=== PATIENT | female | born 1995 | race African-American/Black ===

== ENCOUNTER 2019-11-27 19:34 | Emergency (ER) | payer OTHER, SELFPAY ==
[2019-11-27 19:45] VITALS: BP 132/72; PULSE 92; RESP 17; TEMP 37.1; O2SAT 100
--- NOTE | 2019-11-27 20:41 | ED.FALL ---
HPI - Fall General Chief Complaint: Fall Stated Complaint: FALL, 17WKS PREG Time Seen by Provider: 11/27/19 20:36 Source: patient and RN notes reviewed Mode of arrival: other Limitations: no limitations History of Present Illness HPI Narrative: Pt is a 24 y/o female who presents to the ED with c/o a fall that occurred two days ago (11/25/19). Pt is 17 weeks gestation with no complications with her . Pt states she slipped while wearing house shoes. Pt called her PCP and she was recommended to come to the ED for further evaluation. Pt denies being in any pain. Pt also denies lower abdominal cramping pain, vaginal bleeding, syncope, and hematuria. complaint: fall Onset (ago): day(s) (2) Fall from: standing Place fall occurred: home Loss of consciousness: none Prolonged down time: no Symptoms prior to fall: none Context: tripped/slipped Location of injury: other (none) Associated symptoms (after fall): denies Related Data Home Medications Medication Instructions Recorded Confirmed [id number] fumarate-FA 1 tablet PO DAILY 11/27/19 11/27/19 [] Allergies Allergy/AdvReac Type Severity Reaction Status Date / Time Sulfa (Sulfonamide Allergy Mild Hives Verified 11/27/19 19:51 Antibiotics) Review of Systems Review of Systems: All systems reviewed & are unremarkable except as noted in HPI and below Gastrointestinal: Gastrointestinal: Denies abdominal pain (lower, cramping) Genitourinary: Genitourinary: Denies abnormal vaginal bleeding and Denies hematuria Neurologic: Denies syncope PMFSH Past Medical History Medical History (Updated 11/27/19 @ 21:29 by Pastor Barker MD) GERD (gastroesophageal reflux disease) Pneumonia Surgical History Surgical History (Updated 11/27/19 @ 21:06 by Morena Goyal) History of facial surgery lip surgery Social History Social History Gender identity (if verbalized by the patient): Female Exam Const: General: healthy appearing, no acute distress and well developed Nutritional Appearance: well nourished Orientation/consciousness: patient oriented x3 (alert) and Other orientation findings (Alert) Limitations: no limitations HENMT: Head: normocephalic and atraumatic Ears: external ears normal General nose exam: No nasal discharge present and no epistaxis Face and sinus: face symmetric Mouth: Yes lip normal, Yes tongue normal and Yes moist mucous membranes Throat: other (No exudate, no erythema) Eyes: Conjunctivae: conjunctivae normal Sclera: sclerae normal EOM: EOMs intact bilaterally Neck: Neck: full ROM, no lymphadenopathy and supple Thyroid: thyroid normal Chest: Chest palpation & inspection: no tenderness (rib) Resp: Effort & Inspection: normal respiratory effort Other: nontender GI: Inspection: non-distended GI Palp: No abdominal tenderness and Yes Soft to palpation : General: Yes other (palpable uterus) Other: + doppler FHT's @ 155 Back/Spine/Pelvis: Back: no CVA tenderness and No back tenderness Thoracic/Lumbar Spine: thoracic and lumbar spine normal to inspection Skin: General skin exam: normal color and no rashes or lesions noted Neuro: General: patient oriented x3 (alert), moves all extremities and no focal motor deficits Cranial nerves: Yes facial symmetry Speech: normal speech Motor exam (neuro): Motor abnormalities not present Extrem: General: normal to inspection, full ROM and no pedal edema Psych: Affect: normal affect Course Reevaluation(s) Reevaluation #1: D/w pt, pretty benign mechanism, no concerning sx, benign exam, and FHT's are present Date: 11/27/19 Time: 21:04 Vital Signs Vital signs: Vital Signs Temperature 37.1 C 11/27/19 19:45 Pulse Rate 92 11/27/19 19:45 Respiratory Rate 11/27/19 19:45 Blood Pressure 132/72 11/27/19 19:45 Pulse Oximetry 100 11/27/19 19:45 Temperature 37.1 C 11/27/19 19:45 Pulse Rate 92 11/27/19 19:45 Respiratory Rate
== END 2019-11-27 21:41 | disposition home or self-care (01) ==
PROVIDERS: Emergency Provider Emergency Medicine; PCP Family Medicine
DX: O9A.212 Injury, poisoning and certain other consequences of external causes complicating pregnancy, second trimester (principal); O99.612 Diseases of the digestive system complicating pregnancy, second trimester; K21.9 Gastro-esophageal reflux disease without esophagitis; Z3A.17 17 weeks gestation of pregnancy; W01.0XXA Fall on same level from slipping, tripping and stumbling without subsequent striking against object, initial encounter
CPT/HCPCS: 99282

== ENCOUNTER 2020-01-11 09:29 | Emergency (ER) | payer OTHER, SELFPAY ==
[2020-01-11 09:32] VITALS: BP 122/82; PULSE 95; RESP 18; TEMP 36.5; O2SAT 100
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
[2020-01-11] MEDS: TETANUS,DIPHTHERIA,AC PERTUSSIS ADULT (0.5 ML) BOOSTRIX IM (10:45)
== END 2020-01-11 10:53 | disposition home or self-care (01) ==
PROVIDERS: Emergency Provider Emergency Medicine; PCP Family Medicine
DX: O9A.212 Injury, poisoning and certain other consequences of external causes complicating pregnancy, second trimester (principal); S61.214A Laceration without foreign body of right ring finger without damage to nail, initial encounter; O99.612 Diseases of the digestive system complicating pregnancy, second trimester; K21.9 Gastro-esophageal reflux disease without esophagitis; Z23 Encounter for immunization; X99.1XXA Assault by knife, initial encounter; Z3A.00 Weeks of gestation of pregnancy not specified
CPT/HCPCS: 12001; 90471; 90715; 99282

== ENCOUNTER 2020-01-20 09:50 | Emergency (ER) | payer OTHER, SELFPAY ==
[2020-01-20 10:01] VITALS: BP 105/65; PULSE 86; RESP 16; TEMP 37.1; O2SAT 100
--- NOTE | 2020-01-20 10:08 | ED.WOUNDLAC ---
HPI - Wound/Laceration General Chief Complaint: Wound/Laceration Stated Complaint: wound check History of Present Illness HPI narrative: This is a 25 year old female comes in because she had a laceration and sutures a week ago. Patient said the stitches fell out yesterday and she wanted to make sure that finger was ok. Related Data Home Medications Medication Instructions Recorded Confirmed [id number] fumarate-FA 1 tablet PO DAILY 11/27/19 01/20/20 [] Allergies Allergy/AdvReac Type Severity Reaction Status Date / Time Sulfa (Sulfonamide Allergy Mild Hives Verified 01/20/20 09:56 Antibiotics) Review of Systems Review of Systems: Narrative: CONSTITUTIONAL: Denies fever, chills, or sweats. EYES: Denies visual changes, redness, or discharge. ENT: Denies rhinorrhea, congestion, sore throat, or otalgia. CARDIOVASCULAR:Denies chest pain, palpitations, or edema. RESPIRATORY: Denies cough or dyspnea. GASTROINTESTINAL: Denies abdominal pain, nausea, vomiting, or diarrhea. GENITOURINARY: Denies dysuria or hematuria. SKIN:[Denies rash or itching. Right index finger laceration MUSCULOSKELETAL:Denies back pain, joint pain, or myalgia. NEUROLOGIC: Denies headache, numbness, or weakness. PSYCHIATRIC:Denies anxiety or depression PMFSH Social History Social History Gender identity (if verbalized by the patient): Female Comments At time as signature, I have reviewed and agree with nursing past medical, social, surgical and family history. Please see nursing chart for further information. There is no relevant family history pertinent to the presenting complaint. Exam Narrative: Exam Narrative: GENERAL:Well-appearing, well-nourished, and in no acute distress. HEAD:Normocephalic, atraumatic. EYES: PERRLA and EOMI. ENT: Nares clear, no rhinorrhea or epistaxis. Mucous membranes moist. NECK: Supple. CHEST: Clear to auscultation. No respiratory distress. HEART: Regular rate and rhythm. No murmur heard. Normal peripheral pulses. ABDOMEN: Soft, nontender, nondistended, normal active bowel sounds. EXTREMITIES: Normal range of motion. No edema. SKIN: Warm, dry, no rash. Healing finger wound flap is already healed NEURO: No focal deficits. Alert and oriented x3. Exam essentially negative Course Vital Signs Vital signs: Vital Signs Temperature 98.8 F 01/20/20 10:01 Pulse Rate 86 01/20/20 10:01 Respiratory Rate 16 01/20/20 10:01 Blood Pressure 105/65 01/20/20 10:01 Pulse Oximetry 100 01/20/20 10:01 Temperature 98.8 F 01/20/20 10:01 Pulse Rate 86 01/20/20 10:01 Respiratory Rate 16 01/20/20 10:01 Blood Pressure 105/65 01/20/20 10:01 Pulse Oximetry 100 01/20/20 10:01 MDM - Wound/Laceration Differential Diagnosis Differential diagnosis: Likely laceration, avulsion of skin and other Discharge Plan Discharge Clinical Impression: Physically well but worried, Laceration Patient Disposition: Home, Self-Care Condition: Stable Instructions: Antibiotic Form, Finger Laceration (ED) Prescriptions: No Action 28-800 mg-mcg Tablet 1 tablet PO DAILY RF: 0 Follow-up/Referrals: John Paul,Phillip Alarcon MD [Primary Care Provider] - Stand Alone Forms: Work/School Release IP Time of Disposition: 10:13 Discharge Date/Time: 01/20/20 10:17
== END 2020-01-20 10:17 | disposition home or self-care (01) ==
PROVIDERS: Emergency Provider Nurse Practitioner Family; PCP Family Medicine
DX: S61.210D Laceration without foreign body of right index finger without damage to nail, subsequent encounter (principal); X58.XXXD Exposure to other specified factors, subsequent encounter
CPT/HCPCS: 99211; G0463

== ENCOUNTER 2020-10-13 09:25 | Emergency (ER) | payer OTHER, SELFPAY ==
[2020-10-13] VITALS (13 sets, daily range): BP systolic 106–122; BP diastolic 71–84; PULSE 66; RESP 18; TEMP 36.3; O2SAT 99–100
--- NOTE | ~2020-10-13 | XR_ITS ---
EXAMINATION: XR chest 2V 10/13/2020 09:46 INDICATION: Chest pain PROCEDURE: 2 view chest COMPARISON: 09/04/2020 FINDINGS: The lungs are clear. The cardiomediastinal silhouette is within normal limits. There are no pleural effusions. There is no pneumothorax suspected. IMPRESSION: 1: NO ACUTE CARDIOPULMONARY DISEASE. Reviewed, dictated and finalized at location A. LEVEL CLINICIAN
--- NOTE | 2020-10-13 09:27 | ECG_ITS ---
Measurements Intervals [place] Rate: 68 P: 20 [place]: 145 QRS: 9 QRSD: 84 T: -2 QT: 379 QTc: 404 Interpretive Statements SINUS RHYTHM NONSPECIFIC ST ELEVATION IN HIGH LATERAL LEADS BORDERLINE T WAVE ABNORMALITY- INFERIOR LEADS BASELINE ARTIFACT- AVR, AVF, V1-V2 BORDERLINE ECG Electronically Signed On 10-13-2020 16:36:02 PLASTICS PRODUCTION MACHINE OPERATOR by Fabio Love D.O.
--- NOTE | 2020-10-13 09:38 | PC.NURSE ---
Pt to xray.
[2020-10-13 09:47] LABS: Basophils Percent Auto 0.3 % (0.2-1.2); Eosinophils Absolute Auto 0.1 K/mm3 (0-0.3); Eosinophils Percent Auto 0.7 % (0-4.4); Hematocrit 35.4 % (37.0-47.0); Hemoglobin 11.5 g/dL (12.0-15.0); Immature Granulocyte Absolute 0.03 K/mm3 (0.00-0.031); Immature Granulocyte Percent A 0.3 % (0-0.5); Lymphocytes Absolute Auto 2.68 K/mm3 (0.9-3.2); Lymphocytes Percent Auto 27.5 % (18.3-44.2); Mean Corpuscular HGB Conc 32.5 g/dl (32-36); Mean Corpuscular Hemoglobin 24.8 pg (26-34); Mean Corpuscular Volume 76.5 fl (80-100); Monocytes Absolute Auto 0.7 K/mm3 (0.1-0.6); Monocytes Percent Auto 6.9 % (2.6-8.5); Neutrophils Absolute Auto 6.3 K/mm3 (1.3-6.7); Neutrophils Percent Auto 64.3 % (45.5-73.1); Platelet Count Result 453 k/mm3 (150-375); Red Blood Count 4.63 M/mm3 (4.2-5.4); Red Cell Distribution Width 15.9 % (11.5-14.5); White Blood Count 9.7 K/mm3 (4.5-10.0)
[2020-10-13 09:57] LABS: Prothrombin Time 13.4 Seconds (11.1-14.7)
[2020-10-13 09:58] LABS: Partial Thromboplastin Time 27.6 SECONDS (22.3-36.8)
[2020-10-13 09:59] LABS: Anion Gap 7 mmol/L (8-16); Blood Urea Nitrogen 14 mg/dL (7-17); Calcium 9.2 mg/dL (8.4-10.2); Carbon Dioxide 27 mmol/L (22-30); Chloride 106 mmol/L (98-107); Estimated CRCL calculation 125 ml/min; Estimated Glomerular Filt Rate > 60; Glucose 91 mg/dL (65-105); Potassium 4.1 mmol/L (3.4-5.0); Sodium 140 mmol/L (137-145)
[2020-10-13 10:10] LABS: Troponin I < 0.012 ng/mL (0.000-0.034)
--- NOTE | 2020-10-13 11:05 | PC.NURSE ---
received report from Rachael GARG. patient here with chest pain. notes reviewed. due for repeat trop at 1230. patient aware. on cardiac cath technician. denies needs.
--- NOTE | 2020-10-13 11:05 | PC.NURSE ---
Report given to FOREST Balderas.
--- NOTE | 2020-10-13 12:00 | PC.NURSE ---
2nd trop drawn per order. ice water given. patient updated by provider. will plan for discharge after 2nd trop resulted. on vehicle monitor technician.
[2020-10-13 12:43] LABS: Troponin I < 0.012 ng/mL (0.000-0.034)
--- NOTE | 2020-10-13 13:01 | ED.CHESTPAIN ---
HPI - Chest Pain General Chief Complaint: Chest Pain Stated Complaint: Chest Pain Time Seen by Provider: 10/13/20 10:04 Source: patient Mode of arrival: ambulatory Limitations: no limitations History of Present Illness HPI narrative: Patient is a 25-year-old female who presents with a twinge of chest discomfort to the right chest that occurred today while cleaning the bathroom. Patient notes the symptoms are short-lived has had cardiac evaluation in the past which was unremarkable aside from a murmur patient has had stress test echo and is seeing cardiology patient at this time denies other symptoms or complaints denies any pain resting comfortably in the room in no distress does not take anything for her symptoms Related Data Home Medications Medication Instructions Recorded Confirmed No Home Medications 10/13/20 10/13/20 Allergies Allergy/AdvReac Type Severity Reaction Status Date / Time Sulfa (Sulfonamide Allergy Mild Hives Verified 10/13/20 12:05 Antibiotics) Review of Systems Review of Systems: All systems reviewed & are unremarkable except as noted in HPI and below PMFSH Past Medical History Medical History (Updated 10/13/20 @ 13:15 by Rahul Stephens PA-C) GERD (gastroesophageal reflux disease) Pneumonia Surgical History Surgical History History of facial surgery lip surgery Social History Social History Gender identity (if verbalized by the patient): Female Exam Narrative: Exam Narrative: GENERAL: Well-appearing, well-nourished, and in no acute distress. HEAD: Normocephalic, atraumatic. EYES: PERRLA and EOMI. ENT: Nares clear, no rhinorrhea or epistaxis. Mucous membranes moist. CHEST: Clear to auscultation. No respiratory distress. No wheezes rales or rhonchi HEART: Regular rate and rhythm. No murmur heard. Normal peripheral pulses. ABDOMEN: Soft, nontender, nondistended EXTREMITIES: Normal range of motion. No edema. SKIN: Warm, dry, no rash. NEURO: No focal deficits. Alert and oriented x3. PSYCH: Normal mood and affect. 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 worker ABCs and vital signs intact and stable no high risk changes in the blood work or imaging Vital Signs Vital signs: Vital Signs Temperature 97.3 F L 10/13/20 09:30 Pulse Rate 66 10/13/20 09:30 Respiratory Rate 18 10/13/20 09:30 Blood Pressure 122/71 10/13/20 09:30 Pulse Oximetry 100 10/13/20 09:30 Temperature 97.3 F L 10/13/20 09:30 Pulse Rate 66 10/13/20 09:30 Respiratory Rate 18 10/13/20 09:30 Blood Pressure 119/78 10/13/20 11:46 Pulse Oximetry 100 10/13/20 11:45 MDM - Chest Pain MDM Narrative Medical decision making narrative: Patients EKGs and labs are without significant high risk changes. Cardiac risk factors were reviewed. Patient is felt likely to be low risk for ACS and reasonable for further risk stratification testing as an outpatient. Pain was not sudden or maximal in onset without tearing or ripping. quality. No other signs or symptoms to suggest aortic dissection. A low-risk Wells criteria is noted. PE is felt to be unlikely. No pneumonia or URI symptoms were seen on evaluation today. Patient is felt to b reasonable for continued evaluation as an outpatient. Lab Data Result diagrams: 10/13/20 09:35 10/13/20 09:35 Labs: Lab Results 10/13/20 10/13/20 10/13/20 Range/Units 09:35 09:35 09:35 WBC 9.7 (4.5-10.0) K/mm3 RBC 4.63 (4.2-5.4) M/mm3 Hgb 11.5 L (12.0-15.0) g/dL Hct 35.4 L (37.0-47.0) % MCV 76.5 L (80-100) fl MCH 24.8 L (26-34) pg MCHC 32.5 (32-36) g/dl RDW 15.9 H (11.5-14.5) % Plt Count 453 H (150-375) k/mm3
== END 2020-10-13 13:22 | disposition home or self-care (01) ==
PROVIDERS: Emergency Provider Emergency Medicine; PCP Family Medicine
DX: R07.89 Other chest pain (principal); K21.9 Gastro-esophageal reflux disease without esophagitis; R94.31 Abnormal electrocardiogram [ECG] [EKG]
CPT/HCPCS: 36415; 71046; 80048; 84484; 85025; 85610; 85730; 93005; 99284

== ENCOUNTER 2021-02-08 11:39 | Emergency (ER) | payer OTHER, SELFPAY ==
[2021-02-08 11:44] VITALS: BP 122/84; PULSE 79; RESP 14; TEMP 36.7; O2SAT 100
--- NOTE | 2021-02-08 11:50 | ED.DIZZY ---
HPI - Dizziness General Chief Complaint: Dizziness Stated Complaint: DIZZINESS, HEART PALP Time Seen by Provider: 02/08/21 11:47 History of Present Illness HPI Narrative: 26 yo female presents to the ED for dizziness. She was cleaning a patiet room upstairs when she suddnely became light headaand diaphoretic. This was associated with nausea. On my evalution she reports just feeling very tired at this time. No CP, SOB, fever, vomiting. Related Data Home Medications Medication Instructions Recorded Confirmed No Home Medications 10/13/20 10/13/20 Allergies Allergy/AdvReac Type Severity Reaction Status Date / Time Sulfa (Sulfonamide Allergy Mild Hives Verified 10/13/20 12:05 Antibiotics) Review of Systems Review of Systems: All systems reviewed & are unremarkable except as noted in HPI and below Constitutional: Constitutional: Denies fever(s) Eyes: Eyes: Reports no additional eye complaints ENT: Reports system reviewed and no additional complaints, except as documented Cardiovascular: Cardiovascular: Denies chest pain Respiratory: Respiratory: Denies dyspnea Gastrointestinal: Gastrointestinal: Denies diarrhea, Reports nausea and Denies vomiting Musculoskeletal: Musculoskeletal: Denies back pain Neurologic: Reports dizziness and Denies syncope [facility] Past Medical History Medical History GERD (gastroesophageal reflux disease) Pneumonia Surgical History Surgical History History of facial surgery lip surgery Social History Social History Gender identity (if verbalized by the patient): Female Exam Const: General: healthy appearing, no acute distress and alert Orientation/consciousness: patient oriented x3 HENMT: Head: normal to inspection Resp: Effort & Inspection: normal respiratory effort Auscultation: clear to auscultation bilaterally, no rales, no rhonchi and no wheezes Cardio: Jugular venous distension: no JVD Rate: regular rate Rhythm: regular rhythm Heart sounds: no murmurs GI: Inspection: non-distended GI Palp: Yes Soft to palpation and No Tenderness to palpation present (GI) Skin: General skin exam: normal color Neuro: General: patient oriented x3 and moves all extremities Speech: normal speech Extrem: General: no edema Psych: Appearance: well kempt Affect: normal affect Course Vital Signs Vital signs: Vital Signs Temperature 36.7 C 02/08/21 11:44 Pulse Rate 79 02/08/21 11:44 Respiratory Rate 14 02/08/21 11:44 Blood Pressure 122/84 02/08/21 11:44 Pulse Oximetry 100 02/08/21 11:44 Temperature 36.7 C 02/08/21 11:44 Pulse Rate 79 02/08/21 13:36 Respiratory Rate 18 02/08/21 13:36 Blood Pressure 124/89 02/08/21 13:36 Pulse Oximetry 99 02/08/21 13:36 MDM - Dizziness Medical Records Attestation: I reviewed the patient's medical records. Lab Data Attestation: I reviewed the patient's lab results. Result diagrams: 02/08/21 11:53 02/08/21 11:53 Labs: Lab Results 02/08/21 02/08/21 Range/Units 11:53 11:53 WBC 10.0 (4.5-10.0) K/mm3 RBC 4.78 (4.2-5.4) M/mm3 Hgb 11.5 L (12.0-15.0) g/dL Hct 36.1 L (37.0-47.0) % MCV 75.5 L (80-100) fl MCH 24.1 L (26-34) pg MCHC 31.9 L (32-36) g/dl RDW 17.2 H (11.5-14.5) % Plt Count 438 H (150-375) k/mm3 MPV 8.9 (7.4-10.4) fl Immature Gran % (Auto) 0.4 (0-0.5) % Neut % (Auto) 61.3 (45.5-73.1) % Lymph % (Auto) 30.6 (18.3-44.2) % [place] % (Auto) 6.0 (2.6-8.5) % Eos % (Auto) 1.4 (0-4.4) % Baso % (Auto) 0.3 (0.2-1.2) % Lymph # (Auto) 3.07 (0.9-3.2) K/mm3 [place] # (Auto) 0.6 (0.1-0.6) K/mm3 Eos # (Auto) 0.1 (0-0.3) K/mm3 Baso # (Auto) 0.0 (0.0-0.1) K/mm3 Abs Immat Gran (auto) 0.04 H (0.00-0.031) K/mm3 Absolute Neuts
--- NOTE | 2021-02-08 11:51 | ECG_ITS ---
Measurements Intervals [place] Rate: 82 P: 51 [place]: 181 QRS: 11 QRSD: 85 T: 12 QT: 372 QTc: 435 Interpretive Statements SINUS RHYTHM POSSIBLE LEFT ATRIAL ENLARGEMENT BORDERLINE T WAVE ABNORMALITY- INFERIOR LEADS BASELINE ARTIFACT- I, II, III, AVR, AVL, AVF, V2-V6 BORDERLINE ECG Electronically Signed On 02-08-2021 14:01:07 CDT by Fabio Love D.O.
[2021-02-08 12:05] VITALS: BP 106/72; BP 115/77; BP 116/76; PULSE 78; PULSE 82; PULSE 85
[2021-02-08 12:05] LABS: Basophils Percent Auto 0.3 % (0.2-1.2); Eosinophils Absolute Auto 0.1 K/mm3 (0-0.3); Eosinophils Percent Auto 1.4 % (0-4.4); Hematocrit 36.1 % (37.0-47.0); Hemoglobin 11.5 g/dL (12.0-15.0); Immature Granulocyte Absolute 0.04 K/mm3 (0.00-0.031); Immature Granulocyte Percent A 0.4 % (0-0.5); Lymphocytes Absolute Auto 3.07 K/mm3 (0.9-3.2); Lymphocytes Percent Auto 30.6 % (18.3-44.2); Mean Corpuscular HGB Conc 31.9 g/dl (32-36); Mean Corpuscular Hemoglobin 24.1 pg (26-34); Mean Corpuscular Volume 75.5 fl (80-100); Mean Platelet Volume 8.9 fl (7.4-10.4); Monocytes Absolute Auto 0.6 K/mm3 (0.1-0.6); Neutrophils Absolute Auto 6.2 K/mm3 (1.3-6.7); Neutrophils Percent Auto 61.3 % (45.5-73.1); Platelet Count Result 438 k/mm3 (150-375); Red Blood Count 4.78 M/mm3 (4.2-5.4); Red Cell Distribution Width 17.2 % (11.5-14.5)
[2021-02-08 12:14] LABS: Anion Gap 5 mmol/L (8-16); Blood Urea Nitrogen 12 mg/dL (7-17); Calcium 9.2 mg/dL (8.4-10.2); Carbon Dioxide 29 mmol/L (22-30); Chloride 105 mmol/L (98-107); Estimated CRCL calculation 116 ml/min; Estimated Glomerular Filt Rate > 60; Glucose 96 mg/dL (65-105); Potassium 3.8 mmol/L (3.4-5.0); Sodium 139 mmol/L (137-145)
[2021-02-08] MEDS: SODIUM CHLORIDE 0.9% IV 1,000 ML 999 ML IV CONT (12:36)
[2021-02-08 13:36] VITALS: BP 124/89; PULSE 79; RESP 18; O2SAT 99
--- NOTE | 2021-02-20 09:45 | PC.NURSE ---
LATE ENTRY This note is being entered to document information to the patient's record. The following information was omitted on [02/20/21], by [Maria De Jesus MOE stopped at 1336 on 02/08/21].
== END 2021-02-08 13:39 | disposition home or self-care (01) ==
PROVIDERS: Emergency Provider Emergency Medicine; PCP Family Medicine
DX: R55 Syncope and collapse (principal); K21.9 Gastro-esophageal reflux disease without esophagitis
CPT/HCPCS: 36415; 80048; 81025; 85025; 93005; 96360; 99284; J7030

== ENCOUNTER 2021-02-19 10:52 | Observation (INO) | payer OTHER, SELFPAY ==
[2021-02-19] VITALS (42 sets, daily range): BP systolic 102–141; BP diastolic 60–85; PULSE 79–100; RESP 13–31; TEMP 36.4–37.5; O2SAT 91–100; BMI 42.8
--- NOTE | ~2021-02-19 | XR_ITS ---
XR chest 1V portable DATE: 02/19/2021 13:45 INDICATION: Cough, shortness of breath TECHNIQUE: Portable AP chest on 02/19/2021 at 1341 hours COMPARISON: 10/13/2020 portable AP chest at 0939 hours FINDINGS: Normal heart size. There is mild patchy infiltrate and/or atelectasis in the lower lung [place]. No pleural effusion or pneumothorax. No pulmonary vascular congestion. IMPRESSION: Mild patchy bilateral lower lobe infiltrate and/or atelectasis Reviewed, dictated and finalized at location B.
--- NOTE | ~2021-02-19 | CT_ITS ---
EXAMINATION: CTA chest PE protocol DATE: 02/19/2021 15:39 INDICATION: Chest pain and shortness of breath, cough TECHNIQUE: Computed tomography angiography (CTA) of the chest was performed with 100 mL Omnipaque-350 intravenous contrast timed to evaluate the pulmonary arteries. Coronal maximum intensity projection 3D-reconstructions were created by the technologist. The dose-length product (DLP) was 658.57 mGy-cm. Automated exposure control and iterative reconstruction technique were employed. COMPARISON: None. FINDINGS: The pulmonary arteries are well-opacified. No pulmonary embolism is identified. There are a irspace opacities of the left lower lobe. There is no pleural effusion or pneumothorax. No pathologic ally enlarged thoracic lymph nodes are identified. The heart size is normal. The visualized osseous s tructures are unremarkable. IMPRESSION: 1. No pulmonary embolism identified. 2. Left lower lobe airspace opacity, consistent with pneumonia. Reviewed, dictated and finalized at location A.
--- NOTE | 2021-02-19 13:28 | ECG_ITS ---
Measurements Intervals [place] Rate: 90 P: 20 SD: 163 QRS: 7 QRSD: 81 T: 11 QT: 343 QTc: 421 Interpretive Statements SINUS RHYTHM NORMAL ECG Electronically Signed On 02-19-2021 14:06:29 CDT by Fabio Love D.O.
--- NOTE | 2021-02-19 13:43 | ED.GENADULT ---
HPI - General Adult General Chief complaint: Upper Respiratory Infection Stated complaint: bad cough, back pain wants COVID test Time Seen by Provider: 02/19/21 12:29 Source: patient and RN notes reviewed Mode of arrival: ambulatory Limitations: no limitations History of Present Illness HPI narrative: Patient is a 26-year-old female who presents to emergency department for evaluation of upper respiratory symptoms for the last 2 days noting that her children have also had upper respiratory symptoms patient notes congestion rhinorrhea productive cough of green phlegm patient notes chest tightness denies history of respiratory disease or asthma. Patient denies any vomiting diarrhea. Patient on arrival is in the room in no distress has not taken anything for her symptoms. Related Data Home Medications Medication Instructions Recorded Confirmed No Home Medications 10/13/20 10/13/20 Allergies Allergy/AdvReac Type Severity Reaction Status Date / Time Sulfa (Sulfonamide Allergy Mild Hives Verified 10/13/20 12:05 Antibiotics) Review of Systems Review of Systems: All systems reviewed & are unremarkable except as noted in HPI and below PMFSH Past Medical History Medical History (Updated 02/19/21 @ 16:31 by Rahul Stephens PA-C) GERD (gastroesophageal reflux disease) Pneumonia Surgical History Surgical History History of facial surgery lip surgery Social History Social History Gender identity (if verbalized by the patient): Female Exam Narrative: Exam Narrative: GENERAL: Ill-appearing, obese, and in no acute distress. HEAD: Normocephalic, atraumatic. EYES: PERRLA and EOMI. ENT: Nares clear, no rhinorrhea or epistaxis. Mucous membranes moist. Oropharynx without tonsillar hypertrophy exudate or other lesions. NECK: Supple. No adenopathy or masses. CHEST: Diminished on auscultation. No respiratory distress. No wheezes rales or rhonchi HEART: Regular rate and rhythm. No murmur heard. Normal peripheral pulses. EXTREMITIES: Normal range of motion. No edema. SKIN: Warm, dry, no rash. NEURO: No focal deficits. Alert and oriented x3. PSYCH: Normal mood and affect. Course Course Emergency Course: Patient was evaluated in the emergency department and found to have pneumonia does not appear to be Covid in nature but will be swabbed for Covid will be treated for community-acquired pneumonia patient becomes tachypneic and tachycardic with ambulation with increasing shortness of breath very diminished on auscultation will be brought in the hospital to be observed as not hypoxic at this time does have leukocytosis. Patient agreeing with this plan. Consultations Consultation #1: Patient case discussed with hospitalist who has agreed to accept the patient Date: 02/19/21 Time: 16:30 Vital Signs Vital signs: Vital Signs Temperature 97.6 F 02/19/21 11:04 Pulse Rate 96 02/19/21 11:04 Respiratory Rate 18 02/19/21 11:04 Blood Pressure 128/72 02/19/21 11:04 Pulse Oximetry 95 02/19/21 11:04 Temperature 97.6 F 02/19/21 11:04 Pulse Rate 100 02/19/21 15:41 Respiratory Rate 20 02/19/21 15:41 Blood Pressure 127/62 02/19/21 15:41 Pulse Oximetry 100 02/19/21 15:41 Medical Decision Making MDM Narrative Medical decision making narrative: Patient with pneumonia will be brought into the hospital's been hydrated and given antibiotics in the emergency department Vital Signs Vital Signs: Vital Signs Temperature 97.6 F 02/19/21 11:04 Pulse Rate 96 02/19/21 11:04 Respiratory Rate 18 02/19/21 11:04 Blood Pressure 128/72 02/19/21 11:04 Pulse Oximetry 95 02/19/21 11:04 Temperature 97.6 F 02/19/21 11:04 Pulse Rate 100 02/19/21 15:41 Respiratory Rate 20 02/19/21 15:41 Blood Pressure 127/62 02/19/21 15:41 Pulse Oximetry 100 02/19/21 15:41
--- NOTE | 2021-02-19 14:25 | PC.NURSE ---
Pt. ambulated with walking pulse ox. Pt. O2 saturations dropped from 98% to 94% room air, and Pt. HR increased from 80 to 120. ERP notified. Pt. resting now in bed with HR 83 and 100% on room air.
[2021-02-19 14:44] LABS: Basophils Percent Auto 0.2 % (0.2-1.2); Eosinophils Absolute Auto 0.2 K/mm3 (0-0.3); Eosinophils Percent Auto 0.9 % (0-4.4); Hematocrit 35.5 % (37.0-47.0); Hemoglobin 11.2 g/dL (12.0-15.0); Immature Granulocyte Absolute 0.09 K/mm3 (0.00-0.031); Immature Granulocyte Percent A 0.5 % (0-0.5); Lymphocytes Absolute Auto 1.65 K/mm3 (0.9-3.2); Lymphocytes Percent Auto 9.7 % (18.3-44.2); Mean Corpuscular HGB Conc 31.5 g/dl (32-36); Mean Corpuscular Hemoglobin 23.5 pg (26-34); Mean Corpuscular Volume 74.6 fl (80-100); Mean Platelet Volume 8.4 fl (7.4-10.4); Monocytes Absolute Auto 0.8 K/mm3 (0.1-0.6); Monocytes Percent Auto 4.6 % (2.6-8.5); Neutrophils Absolute Auto 14.4 K/mm3 (1.3-6.7); Neutrophils Percent Auto 84.1 % (45.5-73.1); Platelet Count Result 370 k/mm3 (150-375); Red Blood Count 4.76 M/mm3 (4.2-5.4); Red Cell Distribution Width 17.6 % (11.5-14.5); White Blood Count 17.1 K/mm3 (4.5-10.0)
[2021-02-19 14:53] LABS: Anion Gap 6 mmol/L (8-16); Blood Urea Nitrogen 8 mg/dL (7-17); Carbon Dioxide 28 mmol/L (22-30); Chloride 100 mmol/L (98-107); Estimated CRCL calculation 146 ml/min; Estimated Glomerular Filt Rate > 60; Glucose 94 mg/dL (65-105); Potassium 3.9 mmol/L (3.4-5.0); Sodium 134 mmol/L (137-145)
[2021-02-19] MEDS: SODIUM CHLORIDE 0.9% IV 1,000 ML 999 ML IV CONT (15:17)
[2021-02-19] MEDS: DEXAMETHASONE SOD PHOS INJ 4 MG/ML VIAL 10 MG IV PUSH (15:17)
--- NOTE | 2021-02-19 16:55 | PC.NURSE ---
Pt began vomitting after Rocephin infusion, ERP aware and ordered zofran 4mg. IVP via verbal order readback. Pt. nausea improved. No promethazine needed.
[2021-02-19 16:58] LABS: Lactic Acid Reflex 0.9 mmol/L (0.7-2.1)
[2021-02-19] MEDS: ONDANSETRON INJ 4 MG/2 ML VIAL (17:08)
[2021-02-19] MEDS: FAMOTIDINE 20 MG/2 ML VIAL IV PUSH ×2 (18:25→20:42)
--- NOTE | 2021-02-19 18:46 | ADMGEN ---
This patient, Yenni Francois, was admitted to [facility] Surg Room 315-01. Patient/family oriented to hospital policies and general routines including ID bracelet, bed and alarms, visiting hours, pain management, procedures, bathroom and other care routines, personal items, smoking policy, room service/diet, and visiting hours. Information on how to activate the Rapid Response Team has been discussed. Patient/Family are encouraged to report perceived risks to care and to ask questions if they do not understand what they are told or what they should do.
[2021-02-19] MEDS: LACTATED RINGERS 1,000 ML 75 ML IV CONT (19:03)
--- NOTE | 2021-02-19 21:09 | PM.IMHP ---
H&P: HPI History of Present Illness Date/Time: 02/19/21 21:09 Chief Complaint: cough, shortness of breath Narrative: Patient is a 26-year-old female who presents to emergency department for evaluation of upper respiratory symptoms for the last 2 days noting that her children have also had upper respiratory symptoms patient notes congestion rhinorrhea productive cough of green phlegm patient notes chest tightness denies history of respiratory disease or asthma. Patient denies any vomiting diarrhea. Patient on arrival is in the room in no distress has not taken anything for her symptoms. she was signifiantly sob and tachypenic on exertion and was admtited for observatino. her wbc cout was elevated at 17k. EKG with nsr. CXR with patcy opacities bilaterally and CTA with no PE buate raleft lower lobe airspace opacity, consistenw tih pneuonia. othe rlab anbomrality suggesitve of mild anemia. COVID swab done int ED pending at this time. Review of Systems Review of Systems: Narrative: - CONSTITUTIONAL: Denies weight loss, reprots fever and chills. - HEENT: Denies changes in vision and hearing - RESPIRATORY: reprots SOB and cough. - CV: Denies palpitations and CP. - GI: Denies abdominal pain, nausea, vomiting and diarrhea. - : Denies dysuria and urinary frequency. - MSK: Denies myalgia and joint pain. - SKIN: Denies rash and pruritus. - NEUROLOGICAL: Denies headache and syncope. - PSYCHIATRIC: Denies recent changes in mood. Denies anxiety and depression. All systems reviewed & are unremarkable except as noted in HPI and below PMFSH Past Medical History Medical History (Updated 02/19/21 @ 21:12 by Diogenes Miranda MD) GERD (gastroesophageal reflux disease) Pneumonia Surgical History Surgical History History of facial surgery lip surgery Social History Social History Smoking status: Never smoker Second hand tobacco smoke exposure: No Alcohol intake: never Substance use: never Gender identity (if verbalized by the patient): Female Sexual Orientation (if Verbalized by the Patient): Straight or Heterosexual Spiritual care concerns: No Meds Home Medications and Allergies Home Medications Medication Instructions Recorded Confirmed Type No Home Medications 10/13/20 02/19/21 History Allergies Allergy/AdvReac Type Severity Reaction Status Date / Time Sulfa (Sulfonamide Allergy Mild Hives Verified 02/19/21 18:50 Antibiotics) Vital Signs Vital Signs - 24 hr 02/19/21 11:04 02/19/21 12:34 02/19/21 13:26 Temperature 97.6 F Pulse Rate 96 96 90 Respiratory Rate 18 22 H 24 H Blood Pressure 128/72 115/70 Pulse Oximetry 95 100 91 02/19/21 13:27 02/19/21 13:30 02/19/21 13:31 Temperature Pulse Rate 98 83 92 Respiratory Rate 20 27 H 26 H Blood Pressure 120/80 115/70 Pulse Oximetry 99 100 100 02/19/21 13:45 02/19/21 13:46 02/19/21 14:00 Temperature Pulse Rate 86 87 85 Respiratory Rate 25 H 24 H 24 H Blood Pressure 115/85 Pulse Oximetry 99 97 100 02/19/21 14:02 02/19/21 14:24 02/19/21 14:25 Temperature Pulse Rate 86 87 81 Respiratory Rate 25 H 24 H 30 H Blood Pressure 128/74 125/76 Pulse Oximetry 100 98 99 02/19/21 14:30 02/19/21 14:31 02/19/21 14:45 Temperature Pulse Rate 91 94 83 Respiratory Rate 31 H 25 H 22 H Blood Pressure 128/81 Pulse Oximetry 96 100 99 02/19/21 15:06 02/19/21 15:21 02/19/21 15:40 Temperature Pulse Rate 90 94 93 Respiratory Rate 27 H 27 H 13 Blood Pressure Pulse Oximetry 94 97 100 02/19/21 15:41 02/19/21 15:42 02/19/21 15:52 Temperature Pulse Rate 100 95 87 Respiratory Rate 20 19 25 H Blood Pressure 127/62 Pulse Oximetry 100 100 100 02/19/21 16:00 02/19/21 16:02 02/19/21 16:23 Temperature Pulse Rate 87 79 92 Respiratory Rate 26 H 22 H 23 H Blood Pressure 110/7
[2021-02-19] MEDS: ALBUTEROL SULFATE NEB 2.5 MG/0.5 ML INH 5 MG INHALATION (21:52)
[2021-02-19] MEDS: IPRATROPIUM BR 0.02% INH SOLN 0.5 MG/2.5 ML VIAL INHALATION (21:52)
[2021-02-20] VITALS (12 sets, daily range): BP systolic 116–127; BP diastolic 57–76; PULSE 76–100; RESP 18–20; TEMP 35.8–37.1; O2SAT 94–97
[2021-02-20] MEDS: IPRATROPIUM BR 0.02% INH SOLN 0.5 MG/2.5 ML VIAL INHALATION ×3 (02:50→14:09)
[2021-02-20] MEDS: ALBUTEROL SULFATE NEB 2.5 MG/0.5 ML INH 5 MG INHALATION ×3 (02:50→14:09)
[2021-02-20] MEDS: LACTATED RINGERS 1,000 ML 75 ML IV CONT ×2 (04:34→08:35)
[2021-02-20 06:28] LABS: Basophils Percent Auto 0.1 % (0.2-1.2); Hematocrit 32.1 % (37.0-47.0); Hemoglobin 10.2 g/dL (12.0-15.0); Immature Granulocyte Absolute 0.09 K/mm3 (0.00-0.031); Immature Granulocyte Percent A 0.6 % (0-0.5); Lymphocytes Absolute Auto 0.91 K/mm3 (0.9-3.2); Lymphocytes Percent Auto 6.2 % (18.3-44.2); Mean Corpuscular HGB Conc 31.8 g/dl (32-36); Mean Corpuscular Hemoglobin 23.7 pg (26-34); Mean Corpuscular Volume 74.7 fl (80-100); Monocytes Absolute Auto 0.5 K/mm3 (0.1-0.6); Monocytes Percent Auto 3.4 % (2.6-8.5); Neutrophils Absolute Auto 13.3 K/mm3 (1.3-6.7); Neutrophils Percent Auto 89.7 % (45.5-73.1); Platelet Count Result 372 k/mm3 (150-375); Red Cell Distribution Width 17.7 % (11.5-14.5); White Blood Count 14.8 K/mm3 (4.5-10.0)
[2021-02-20 06:44] LABS: Alanine Aminotransferase 14 U/L (4-35); Albumin Level 3.9 g/dL (3.5-5.1); Alkaline Phosphatase 71 U/L (38-126); Anion Gap 7 mmol/L (8-16); Aspartate Amino Transferase 19 U/L (14-36); Bilirubin,Total < 0.1 mg/dL (0.2-1.3); Blood Urea Nitrogen 8 mg/dL (7-17); Calcium 8.9 mg/dL (8.4-10.2); Carbon Dioxide 25 mmol/L (22-30); Chloride 106 mmol/L (98-107); Estimated CRCL calculation 148 ml/min; Estimated Glomerular Filt Rate > 60; Glucose 150 mg/dL (65-105); Potassium 3.7 mmol/L (3.4-5.0); Sodium 138 mmol/L (137-145)
[2021-02-20] MEDS: FAMOTIDINE 20 MG/2 ML VIAL IV PUSH (08:36)
--- NOTE | 2021-02-20 12:28 | PM.IMPN ---
Progress Note: A&P Assessment and Plan (1) Pneumonia: Code(s): J18.9 - Pneumonia, unspecified organism Status: Acute (2) Leukocytosis: Code(s): D72.829 - Elevated white blood cell count, unspecified Status: Acute Additional Plan # left lower lobe pneumoani: community actuqired pneumonia. ceftraixone,a zithromycin. covid swab done an dpending. sputum cutlure. # leukoctysois: monitor. labs in am # DVT proph PAS boots admit under observation. labs in am Time Spent With Patient Time with patient: 25 - 35 minutes Subjective Date/time seen: 02/20/21 12:28 Objective Data Vital Signs Vital Signs: Vital Signs - 24 hr 02/19/21 12:34 02/19/21 13:26 02/19/21 13:27 Temperature Pulse Rate 96 90 98 Respiratory Rate 22 H 24 H 20 Blood Pressure 115/70 120/80 Pulse Oximetry 100 91 99 02/19/21 13:30 02/19/21 13:31 02/19/21 13:45 Temperature Pulse Rate 83 92 86 Respiratory Rate 27 H 26 H 25 H Blood Pressure 115/70 Pulse Oximetry 100 100 99 02/19/21 13:46 02/19/21 14:00 02/19/21 14:02 Temperature Pulse Rate 87 85 86 Respiratory Rate 24 H 24 H 25 H Blood Pressure 115/85 128/74 Pulse Oximetry 97 100 100 02/19/21 14:24 02/19/21 14:25 02/19/21 14:30 Temperature Pulse Rate 87 81 91 Respiratory Rate 24 H 30 H 31 H Blood Pressure 125/76 Pulse Oximetry 98 99 96 02/19/21 14:31 02/19/21 14:45 02/19/21 15:06 Temperature Pulse Rate 94 83 90 Respiratory Rate 25 H 22 H 27 H Blood Pressure 128/81 Pulse Oximetry 100 99 94 02/19/21 15:21 02/19/21 15:40 02/19/21 15:41 Temperature Pulse Rate 94 93 100 Respiratory Rate 27 H 13 20 Blood Pressure 127/62 Pulse Oximetry 97 100 100 02/19/21 15:42 02/19/21 15:52 02/19/21 16:00 Temperature Pulse Rate 95 87 87 Respiratory Rate 19 25 H 26 H Blood Pressure Pulse Oximetry 100 100 100 02/19/21 16:02 02/19/21 16:23 02/19/21 16:30 Temperature Pulse Rate 79 92 89 Respiratory Rate 22 H 23 H 17 Blood Pressure 110/74 Pulse Oximetry 99 100 96 02/19/21 16:31 02/19/21 16:45 02/19/21 16:46 Temperature Pulse Rate 91 82 83 Respiratory Rate 21 H 20 25 H Blood Pressure 111/74 111/62 Pulse Oximetry 97 97 02/19/21 17:20 02/19/21 17:45 02/19/21 17:46 Temperature Pulse Rate 92 94 88 Respiratory Rate 16 25 H 24 H Blood Pressure Pulse Oximetry 98 100 98 02/19/21 18:00 02/19/21 18:01 02/19/21 18:20 Temperature Pulse Rate 86 88 96 Respiratory Rate 21 H 20 20 Blood Pressure Pulse Oximetry 97 97 98 02/19/21 18:29 02/19/21 18:30 02/19/21 18:31 Temperature Pulse Rate 81 83 83 Respiratory Rate 18 24 H 23 H Blood Pressure 102/60 109/60 Pulse Oximetry 97 95 95 02/19/21 18:52 02/19/21 20:00 02/19/21 21:50 Temperature 99.4 F 99.5 F Pulse Rate 93 81 93 Respiratory Rate 24 H 20 24 H Blood Pressure 141/69 H 106/62 Pulse Oximetry 95 96 96 02/19/21 22:00 02/19/21 23:48 02/20/21 02:50 Temperature 99.0 F Pulse Rate 98 94 90 Respiratory Rate 20 20 20 Blood Pressure 119/60 Pulse Oximetry 95 02/20/21 03:05 02/20/21 03:51 02/20/21 08:00 Temperature 98.8 F 96.9 F L Pulse Rate 93 83 81 Respiratory Rate 20 18 20 Blood Pressure 116/57 L 122/76 Pulse Oximetry 96 96 02/20/21 08:51 02/20/21 09:03 02/20/21 11:20 Temperature 97.2 F L Pulse Rate 96 100 92 Respiratory Rate 20 20 18 Blood Pressure 116/75 Pulse Oximetry 96 94 02/20/21 11:27 Temperature 97.2 F L Pulse Rate 92 Respiratory Rate 18 Blood Pressure 116/75 Pulse Oximetry 94 Intake/Output Intake/Output: Intake & Output 05/17/02/18/21 02/19/21 02/20/21 23:59 23:59 23:59 23:59 Intake Total 1400 2730 Balance 1400 2730 Meds/Results Medications: Active Medications Generic Name Dose Route Start Last Admin Trade Name Freq PRN Reason Stop Dose Admin Albuterol 5 mg 02/19/21 20:00 02/20/21 08:49 Albuterol Sulfate Neb 2.5 Mg/0.5 Ml Inh INHALATION 5 mg Q6HR
[2021-02-20 16:57] LABS: SARS-CoV-2 RNA PCR Negative
--- NOTE | 2021-02-20 18:09 | PM.DS ---
DS: Admitting Diagnosis Admitting Diagnosis Admitting Diagnosis: (1) Pneumonia: Code(s): J18.9 - Pneumonia, unspecified organism Status: Acute (2) Leukocytosis: Code(s): D72.829 - Elevated white blood cell count, unspecified Status: Acute DS: Discharge Diagnosis Discharge Diagnosis (1) Pneumonia: Qualifiers: Pneumonia type: due to unspecified organism Laterality: left Lung location: lower lobe of lung Qualified Code(s): J18.9 - Pneumonia, unspecified organism Code(s): J18.9 - Pneumonia, unspecified organism Status: Acute (2) Leukocytosis: Qualifiers: Leukocytosis type: unspecified Qualified Code(s): D72.829 - Elevated white blood cell count, unspecified Code(s): D72.829 - Elevated white blood cell count, unspecified Status: Acute DS: Summary Hospital Course Reason for hospitalization: PNA Hospital Course: 26 yo F employee of [employer] presented to ER w c/o cough. she was found to have PNA on imaging and COVID testing ordered due to high risk for exposure. She was started on Rocephin/Azithromycin and her leukocytosis was down trending at time of discharge. She remained on RA throughout hospitalization and was discharged home in stable condition on 5day course of Levaquin w mucinex and Tessalon Perles. Pt advised to hydrate and rest and to return to work when abx therapy completed. COVID ruled out Status at Discharge Functional status at discharge: independent ambulation Overall status at discharge: patient is progressing back to baseline Time Spent with Patient Time attestation: Total time spent providing and/or coordinating discharge services: Time spent: Less than 30 minutes Exam Narrative: Exam Narrative: GEN: NAD, AAOx3, cooperative HEENT: NCAT, MMM, EOMI Neck: no JVD Heart: S1S2 RRR Lungs: LLL crackles Ext: moves all, no cyanosis, no clubbing, no edema DS: Data Data Completed and Pending Labs on day of discharge: Labs from last 24 hours 02/20/21 02/20/21 02/19/21 06:08 06:08 13:33 WBC 14.8 H RBC 4.30 Hgb 10.2 L Hct 32.1 L MCV 74.7 L MCH 23.7 L MCHC 31.8 L RDW 17.7 H Plt Count 372 MPV 9.0 Immature Gran % (Auto) 0.6 H Neut % (Auto) 89.7 H Lymph % (Auto) 6.2 L [place] % (Auto) 3.4 Eos % (Auto) 0.0 Baso % (Auto) 0.1 L Lymph # (Auto) 0.91 [place] # (Auto) 0.5 Eos # (Auto) 0.0 Baso # (Auto) 0.0 Abs Immat Gran (auto) 0.09 H Absolute Neuts (auto) 13.3 H Absolute Nucleated RBC 0.0 Nucleated RBC % 0.0 Sodium 138 Potassium 3.7 Chloride 106 Carbon Dioxide 25 Anion Gap 7 L BUN 8 Creatinine 0.50 L Estim Creat Clear Calc 148 Estimated GFR > 60 Glucose 150 H Calcium 8.9 Total Bilirubin < 0.1 L AST 19 ALT 14 Alkaline Phosphatase 71 Total Protein 7.0 Albumin 3.9 SARS-CoV-2 RNA (RT-PCR) Negative Discharge Plan Discharge Attending physician on discharge: July Ramsey Consulting providers: Rahul Stephens Discharging Clinician: July Ramsey Anticipated Discharge Date/Time: 02/20/21 17:59 Patient Disposition: Home, Self-Care Activity: as tolerated and other - see discharge instructions Diet: regular Discharge Instructions: Home, rest, hydrate off work until 02/25/21 Patient Instructions: Antibiotic Form, Pneumonitis (GEN) Stand Alone Forms: General Discharge Information, Work/School Release IP Follow-up/Referrals: John Paul,Phillip Alarcon MD [Primary Care Provider] - Discharge Medications: New levofloxacin 750 mg tablet 750 mg PO DAILY 5 Days Qty: 5 RF: 0 guaifenesin 600 mg tablet extended release 12hr 600 mg PO Q12H PRN (Reason: cough) Qty: 10 RF: 0 benzonatate [Tessalon Perles] 100 mg capsule 100 mg PO TID PRN (Reason: cough) Qty: 20 RF: 0 Date of admission: 02/19/21 16:32 Primary Care Provider: John Paul,Phillip Alarcon Admitting Pro
== END 2021-02-20 19:14 | disposition home or self-care (01) ==
LOC: ANHED 16:31 → ANH3MEDSUR 17:54
PROVIDERS: Emergency Medicine Emergency Medical Services; Admitting Provider Hospitalist; Emergency Provider Emergency Medicine; PCP Family Medicine; Visit Provider Hospitalist
DX: J18.9 Pneumonia, unspecified organism (principal); D72.829 Elevated white blood cell count, unspecified; K21.9 Gastro-esophageal reflux disease without esophagitis; Z20.822 Contact with and (suspected) exposure to COVID-19
CPT/HCPCS: 36415; 71045; 71275; 80048; 80053; 81025; 83605; 85025; 87040; 93005; 94640; 96361; 96365; 96367; 96374; 96375; 96376; 99285; C9803; G0378; G0379; J0131; J0456; J0696; J1100; J2405; J7030; J7120; Q9967; U0003; U0005

== ENCOUNTER 2021-03-18 15:50 | Outpatient (CLI) | payer OTHER, SELFPAY ==
--- NOTE | ~2021-03-18 | XR_ITS ---
XR chest 2V DATE: 03/18/2021 16:27 INDICATION: Left lower lobe pneumonia TECHNIQUE: PA and lateral views COMPARISON: 02/19/2021 CT pulmonary scan 02/19/2021 portable AP chest FINDINGS: Normal heart size. No hilar or mediastinal enlargement. The no pulmonary infiltrate or cons olidation, pleural effusion, pulmonary vascular congestion or pneumothorax is evident. No hilar or me diastinal enlargement. Thoracolumbar scoliosis. IMPRESSION: No active cardiopulmonary disease Reviewed, dictated and finalized at location A.
[2021-03-18 17:18] LABS: Basophils Percent Auto 0.4 % (0.2-1.2); Eosinophils Absolute Auto 0.1 K/mm3 (0-0.3); Eosinophils Percent Auto 1.2 % (0-4.4); Hematocrit 34.6 % (37.0-47.0); Immature Granulocyte Absolute 0.03 K/mm3 (0.00-0.031); Immature Granulocyte Percent A 0.3 % (0-0.5); Lymphocytes Absolute Auto 3.04 K/mm3 (0.9-3.2); Lymphocytes Percent Auto 30.9 % (18.3-44.2); Mean Corpuscular HGB Conc 31.8 g/dl (32-36); Mean Corpuscular Hemoglobin 24.3 pg (26-34); Mean Corpuscular Volume 76.5 fl (80-100); Monocytes Absolute Auto 0.8 K/mm3 (0.1-0.6); Neutrophils Absolute Auto 5.8 K/mm3 (1.3-6.7); Neutrophils Percent Auto 59.2 % (45.5-73.1); Platelet Count Result 416 k/mm3 (150-375); Red Blood Count 4.52 M/mm3 (4.2-5.4); Red Cell Distribution Width 17.1 % (11.5-14.5); White Blood Count 9.8 K/mm3 (4.5-10.0)
[2021-03-18 19:01] LABS: Iron 43 ug/dL (37-170)
[2021-03-18 19:10] LABS: Percent Iron Saturation 11 % (20-50)
[2021-03-18 19:37] LABS: Ferritin 8.51 ng/mL (6.24-137)
== END 2021-03-18 15:51 | disposition home or self-care (01) ==
PROVIDERS: PCP Family Medicine; Visit Provider Physician Assistant Medical
DX: J18.9 Pneumonia, unspecified organism (principal); D64.9 Anemia, unspecified; M41.9 Scoliosis, unspecified
CPT/HCPCS: 36415; 71046; 82728; 83540; 83550; 85025

== ENCOUNTER 2022-12-27 08:39 | Emergency (ER) | payer OTHER, SELFPAY ==
[2022-12-27 08:48] VITALS: BP 124/89; PULSE 109; RESP 16; TEMP 32.6; O2SAT 98
--- NOTE | 2022-12-27 08:55 | ED.URI ---
HPI - URI/Sore Throat General Chief Complaint: Upper Respiratory Infection Stated Complaint: uri Time Seen by Provider: 12/27/22 08:55 Source: patient and RN notes reviewed Mode of arrival: ambulatory Limitations: no limitations History of Present Illness HPI Narrative: 27-year-old female presents concern for one-week history of cough, sore throat, runny nose, stuffy nose, chills, ear pressure. Reports she has been taking an [id number]-[id number] sinus medicine without relief. She denies known sick contacts. MD elicited complaint: cough and sore throat Related Data Home Medications Medication Instructions Recorded Confirmed cetirizine 10 mg tablet 10 mg PO DAILY 12/27/22 12/27/22 fluticasone propionate 50 1 spray intranasal DAILY 12/27/22 12/27/22 mcg/actuation nasal spray,suspension triamcinolone acetonide 0.1 % 1 applic topical TID 12/27/22 12/27/22 topical ointment Allergies Allergy/AdvReac Type Severity Reaction Status Date / Time Sulfa (Sulfonamide Allergy Mild Hives Verified 12/27/22 08:42 Antibiotics) Review of Systems Review of Systems: CONSTITUTIONAL: Reports malaise, chills EYES: Denies visual changes, redness, or discharge. ENT: Reports rhinorrhea, congestion, otalgia and sore throat. CARDIOVASCULAR: Denies chest pain, palpitations, or edema. RESPIRATORY: Reports cough. Denies dyspnea. GASTROINTESTINAL: Denies abdominal pain, nausea, vomiting, diarrhea SKIN: Denies rash or itching. MUSCULOSKELETAL: Denies myalgia. NEUROLOGIC: Denies headache. All systems reviewed & are unremarkable except as noted in HPI and below [facility] Past Medical History Medical History (Updated 12/27/22 @ 09:04 by Joyce Perales NP) GERD (gastroesophageal reflux disease) Pneumonia Surgical History Surgical History History of facial surgery lip surgery Social History Social History Smoking status: Never smoker Second hand tobacco smoke exposure: No Alcohol intake: never Substance use: never Gender identity (if verbalized by the patient): Female Sexual Orientation (if Verbalized by the Patient): Straight or Heterosexual Spiritual care concerns: No Comments At time of signature, agree with nursing past medical, surgical, social and family history. There is no relevant family history pertinent to the presenting complaint Exam Narrative: GENERAL: Nontoxic-appearing and in no acute distress. HEAD: Normocephalic EYES: PERRLA, conjunctivae clear ENT: Nares clear. Mucous membranes moist. TM pearly martin with dull light reflex bilaterally; no tragal tenderness. Oropharynx erythematous without lesions. Tonsils enlarged and without exudate, no drooling, no trismus, uvula midline. Mild hoarse voice NECK: Supple. No lymphadenopathy CHEST: Clear to auscultation, breath sounds equal. No wheezing, rhonchi, rales, or stridor. No respiratory distress, speaks in full sentences. HEART: Regular rate and rhythm. No murmur heard. SKIN: Warm, dry, no rash. NEURO: Alert and oriented x3. PSYCH: Normal mood and affect Course Course Emergency Course: Patient is aware of diagnosis, understands and agrees to treatment plan. Anticipatory guidance given. Patient agrees to follow-up as directed and is aware of reasons to seek care at the emergency department. Portions of this record may have been created with voice recognition software Level of Care: Express Care Visit Vital Signs Vital signs: Vital Signs Temperature 90.7 F L 12/27/22 08:48 Pulse Rate 109 H 12/27/22 08:48 Respiratory Rate 16 12/27/22 08:48 Blood Pressure 124/89 12/27/22 08:48 Pulse Oximetry 98 12/27/22 08:48 Oxygen Delivery Room Air 12/27/22 08:48 Temperature 90.7 F L 12/27/22 08:48 Pulse Rate 109 H 12/27/22 08:48 Respiratory Rate 16 12/27/22 08:48 Blood Pressure 124/89 12/27/22 08:48 Pulse Oxime
== END 2022-12-27 09:11 | disposition home or self-care (01) ==
PROVIDERS: Emergency Provider Nurse Practitioner
DX: J02.0 Streptococcal pharyngitis (principal)
CPT/HCPCS: 87880; 99213; G0463

== ENCOUNTER 2024-09-14 14:06 | Emergency (ER) | payer OTHER, SELFPAY ==
[2024-09-14 14:27] VITALS: BP 126/92; PULSE 87; RESP 20; TEMP 37.1; O2SAT 100
--- NOTE | 2024-09-14 14:37 | ED.URI ---
HPI - URI/Sore Throat General Chief Complaint: Upper Respiratory Infection Stated Complaint: Sore Throat/Cough/Fever Time Seen by Provider: 09/14/24 14:38 Source: patient, RN notes reviewed and old records reviewed Mode of arrival: ambulatory Limitations: no limitations History of Present Illness HPI Narrative: Patient presents with complaints of hoarse voice and URI symptoms that have been present for about 1 day. She reports some chills without fever. She is more tired than normal. She voices no other concerns or complaints. She has been taking Tylenol for her symptoms with moderate relief. Related Data Home Medications ?Medication ?Instructions ?Recorded ?Confirmed ?Last Taken ?Type atogepant 10 mg tablet (Qulipta) 10 mg PO DAILY 06/09/24 06/09/24 Unknown History dulaglutide 0.75 mg/0.5 mL 0.75 mg subcut WEEKLY 06/09/24 06/09/24 Unknown History subcutaneous pen injector (Trulicity) Allergies Allergy/AdvReac Type Severity Reaction Status Date / Time Sulfa (Sulfonamide Allergy Mild Hives Verified 06/09/24 09:54 Antibiotics) Review of Systems Review of Systems: All systems reviewed & are unremarkable except as noted in HPI and below Constitutional: Constitutional: Reports no additional constitutional complaints, Reports body ache(s), Reports chills and Reports lethargy ENT: Reports system reviewed and no additional complaints, except as documented, Reports nasal discharge and Reports sore throat Cardiovascular: Cardiovascular: Reports no additional cardiovascular complaints Respiratory: Respiratory: Reports no additional respiratory complaints and Reports cough Gastrointestinal: Gastrointestinal: Reports no additional gastrointestinal complaints [facility] Past Medical History Medical History (Updated 09/14/24 @ 14:48 by Roxy Nava APRN) Diabetes History of miscarriage Allergies Headache GERD (gastroesophageal reflux disease) Pneumonia Surgical History Surgical History History of section History of facial surgery lip surgery Family History Family History Other Cancer Diabetes mellitus Heart disease Hypertension Thyroid disorder Social History Social History Smoking status: Never smoker Second hand tobacco smoke exposure: No Alcohol intake: never Substance use: never Substance use type: does not use Lack of Transportation: No Lack of Food: Never True Current Housing: I Have Housing Concerned About Future Housing: No Difficulty Paying Gas/Electric Bills: No Difficulty Paying for Meds: No Currently Unemployed: No Education: High School Diploma/GED Difficulty w/ Childcare or Family Care: No Gender identity (if verbalized by the patient): Female Sexual Orientation (if Verbalized by the Patient): Straight or Heterosexual Spiritual care concerns: No Comments At the time of my signature, I reviewed and agree with the nursing past medical, surgical, social, and family history. There is no relevant family history pertinent to the patient complaint. Exam Const: General: cooperative, no acute distress, alert and awake Orientation/consciousness: oriented to person, oriented to place and oriented to time HENMT: Head: normal to inspection Ears: TM's normal bilaterally Mouth: Yes moist mucous membranes Throat: posterior oropharynx abnormal erythema Resp: Effort & Inspection: normal respiratory effort and able to speak in complete sentences Auscultation: clear to auscultation bilaterally, no crackles, no rales, no rhonchi and no wheezes Cardio: Palpation: normal PMI Rate: regular rate Rhythm: regular rhythm Heart sounds: S1 normal heart sound present and S2 normal heart sound present Neuro: General: oriented to person, oriented to place and oriented to time Cranial nerves: Yes CN's II-XII intact bilaterally Psych: Appearance: grossly normal Thought process: Normal thought process present Insight: Good insight present (Psych) Judgement: Good judgement present (Psych) Course Course Level of Care: Express Care Visit Vital Signs Vital signs: Vital Signs Temperature 98.7 F 09/14/24 14:27 Pulse Rate 87 09/14/24 14:27 Respiratory Rate 20 09/14/24 14:27 Blood Pressure 126/92 H 09/14/24 14:27 Pulse Oximetry 100 09/14/24 14:27 Oxygen Delivery Room Air 09/14/24 14:27 Temperature 98.7 F 09/14/24 14:27 Pulse Rate 87 09/14/24 14:27 Respiratory Rate 20 09/14/24 14:27 Blood Pressure 126/92 H 09/14/24 14:27 Pulse Oximetry 100 09/14/24 14:27 Oxygen Delivery Room Air 09/14/24 14:27 Reviewed MDM - URI/Sore Throat MDM Narrative Medical decision making narrative: Reassuring exam. Neg Covid, flu and strep. Culture pending. Prednisone for symptoms Discharge instructions reviewed with patient, as well as provided in writing per nursing staff. The instructions also include specific and strict return/GO TO THE ER as well as f/u information. All questions have been answered, and the patient deny any further questions with discharge and discharge plan. Some parts of this dictation were generated by voice recognition software and may contain typographical and/or grammatical inaccuracies. Differential Diagnosis Differential diagnosis: Likely upper respiratory infection, sinusitis, viral infection, bronchitis, influenza and pharyngitis Medical Records Attestation: I reviewed the patient's medical records. Lab Data Attestation: I reviewed the patient's lab results. Discharge Plan Discharge Clinical Impression: Upper respiratory infection Patient Disposition: Home, Self-Care Condition: Stable Instructions: Antibiotic Form, Cold Symptoms (ED) Additional Instructions: Take medications as prescribed. Tylenol and or ibuprofen per package instructions as needed for fever or pain. Follow-up with primary care provider. Emergency department for new or worse symptoms Patient Language: [place] Prescriptions: New prednisone 50 mg tablet 50 mg PO DAILY Qty: 5 0RF No Action Qulipta 10 mg tablet 10 mg PO DAILY Trulicity 0.75 mg/0.5 mL pen injector 0.75 mg subcut WEEKLY etonogestrel-ethinyl estradiol [NuvaRing] 0.12-0.015 mg/24 hr ring 1 vag ring vaginal ONCE Qty: 3 4RF Rx Instructions: Insert 1 ring vaginal x 3 weeks, then remove for 1 week. Follow-up/Referrals: Denny,OLIVA Alvarez [Primary Care Provider] - 2 Days Stand Alone Forms: Work/School Release IP Time of Disposition: 14:49
[2024-09-14 14:42] LABS: EDCOVIDSCREEN Negative (Negative); EDINFLUASCREEN Negative (Negative); EDINFLUBSCREEN Negative (Negative); EDSTREPNEGPOS1 Negative (Negative)
== END 2024-09-14 14:52 | disposition home or self-care (01) ==
PROVIDERS: Emergency Provider Nurse Practitioner Family; PCP Physician Assistant Medical
DX: J06.9 Acute upper respiratory infection, unspecified (principal); Z20.822 Contact with and (suspected) exposure to COVID-19; E11.9 Type 2 diabetes mellitus without complications; K21.9 Gastro-esophageal reflux disease without esophagitis
CPT/HCPCS: 87081; 87426; 87804; 87880; 99213; G0463

== ENCOUNTER 2024-12-06 07:35 | Outpatient (CLI) | payer OTHER, SELFPAY ==
--- OUTSIDE RECORDS SUMMARY | 2024-12-06 07:41 | XMS_ITS | Encounter Summary ---
Author Organization [facility] Healthcare Address [address] [place] [address] Care Team Providers Care Medical Research Tech Name Role Phone Phillip Coker MD Primary Care Provider [phone] Antonio Baldwin Primary Care Provider [phone] Reason for Visit * Reason Onset Date Comments No Show 01/15/2022 I called patient and she states that she will be in attendance tomorrow for her next scheduled visit. Encounter Details Date Type Department Care Team (Late st Contact Info) Description 01/15/2022 Documentation [facility] OP Physical Therapy [facility] [address] [address] Arlene Albert, PT No Show (I called patient and she states that she will be in attendance tomorrow for her next scheduled visit.) Social History Tobacco Use Types Packs/Day Years Used Date Smoking Tobacco: Never Smokeless Tobacco: Never Alcohol Use Standard Drinks/Week Comments Never 0 (1 standard drink = 0.6 oz pur e alcohol) AUDIT-C Answer Date Recorded Q1: How often do you have a drink containing alc ohol? Never 01/06/2022 Average Number of Drinks Not on file 022 Q3: How often do you have si x or more drinks on one occasion? Never 01/06/2022 PHQ-2 Answer Date Recorded PHQ-2 Total Score (If total score is 3 or more points, staff should administer the PHQ-9) 0 06/20/2021 Comments Unknown Sex and Gender Information Value Date Recorded Sex Assigned at Not on file Legal Sex Female 11:27 PM VETERINARY SURGEON Gender Identity Female 08/08/2021 9:31 AM CDT Sexual Orientation Straight 08/08/2021 9: 31 AM CDT documented as of this encounter Plan of Treatment Not on file documented as of this encounter Visit Diagnoses Not on filedocumented in this encounter Additional Health Concerns Infection Onset Date Last Indicated Resolved Time COVID: Recovered Comment:Added based on recent COVID infection. 10/15/2021 10/20/2021 02/12/2022 3:05 AM C DT COVID: Suspected 06/21/2023 06/21/2023 06/21/2023 3:30 PM CDT COVID: Suspected 06/21/2023 06/21/2023 06/21/2023 6:32 PM CDT documented as of this encounter Care Teams Medical Research Tech Relationship Specialty Start Date End Date Phillip Coker MD PCP - General 12/30/18 06/30/22 Antonio Baldwin PA PCP - General Family Medicine 07/01/22 documented as of this encounter
--- OUTSIDE RECORDS SUMMARY | 2024-12-06 07:41 | XMS_ITS | Encounter Summary ---
Author Organization [facility] Healthcare Address [address] [place] [address] Care Team Providers Care Concrete Products Dispatcher Name Role Phone Antonio Baldwin Primary Care Provider [phone] Reason for Visit * Reason Onset Date Comments Appointment Request 11/30/2024 Encounter Details Date Type Department Care Team (Late st Contact Info) Description 11/30/2024 Telephone [facility] Medical Group Family Medicine at [address] [place] [phone] Antonio Baldwin PA [address] [place] [id number] Appointment Request Social History Tobacco Use Types Packs/Day Years Used Date Smoking Tobacco: Never Smokeless Tobacco: Never Alcohol Use Standard Drinks/Week Comments Never 0 (1 standard drink = 0.6 oz pur e alcohol) AUDIT-C Answer Date Recorded Q1: How often do you have a drink containing alcohol? Never 09/22/2024 Q2: How many drinks containi ng alcohol do you have on a typical day when you are drinking? Patient does not drink Q3: How often do you have si x or more drinks on one occasion? Never 09/22/2024 PHQ-2 Answer Date Recorded PHQ-2 Total Score (If total score is 3 or more points, staff should administer the PHQ-9) 0 09/22/2024 Hunger Vital Sign Answer Date Recorded Within the past 12 months, y ou worried that your food would run out before you got the money to buy more. Never true 11/30/19 Within the past 12 months, t he food you bought just didn't last and you didn't have money to get more. Never true 11/30/2024 Comments Unknown Sex and Gender Information Value Date Recorded Sex Assigned at Not on file Legal Sex Female 11:27 PM BUILDING WRECKER Gender Identity Female 08/08/2021 9:31 AM CDT Sexual Orientation Straight 08/08/2021 9: 31 AM CDT documented as of this encounter Miscellaneous Notes * Telephone Encounter - Valerio Roque - 11/30/2024 5:00 PM CST I made patient aware DING WRECKER * Telephone Encounter - Alee Mario RN - 11/30/2024 4:12 PM BUILDING WRECKER Her ore sampler needs to remove sutures DING WRECKER * Telephone Encounter - Valerio Roque - 11/30/2024 4:06 PM CST Where can I put her? DING WRECKER * Telephone Encounter - Carmen Elkins - 11/30/2024 4:01 PM CST Appointment Request What visit type does the patient need? sutured removed from her right arm What is the reason for the visit? sutured removed from her right arm What is the reason we were unable to schedule the appointment? Patient stated she was seen by her Rn Informatics today on 11/30/24 and told to be seen by PCP office for suture removal. If applicable, were all members of the patient's PCP care team offered (e.g., nurse practioner(s), physician hearing aid assistant(s)) ? Additional Comments: Patient called to schedule an appointment, please advise. Does message need to be routed? DING WRECKER documented in this encounter Plan of Treatment Not on file documented as of this encounter Visit Diagnoses Not on filedocumented in this encounter Care Teams Concrete Products Dispatcher Relationship Specialty Start Date End Date Antonio Baldwin PA PCP - General Family Medicine 07/01/22 documented as of this encounter
--- OUTSIDE RECORDS SUMMARY | 2024-12-06 07:41 | XMS_ITS | Referral Summary ---
Author Organization [facility] Address [address] [place] [address] Care Team Providers Care Satellite Television Installer Name Role Phone Unavailable Primary Care Provider Unavailabl e Source Comments [facility],non-owned Affiliates and Associated Physician Practices is amultiple site organization consisting of ambulatory clinics and hospital sitesin [place], [place], [place] and [place]. This disclosure is being madepursuant to the Care Everywhere program and may not contain all information available regarding this patient. Last updated 18.[facility] [employer] Allergies No known active allergies Medications * Be aware that medications may not be up to date on this document. Alwaysverify current medications with the patient. Medication Sig Dispensed Refills Start Date End Date Status cetirizine (ZYRTEC) 10 MG tabletIndications:Aller gic rhinitis Take 1 Tab by mouth at bedtime. 30 3 01/14/2010 Active fluticasone propionate (FLUTICASONE PROPIONATE) 50 MCG/ACT nasal sprayIndications:Allerg ic rhinitis Nunnelly 2 Sprays into each nostril daily. 1 3 01/14/2010 Active fluticasone hfa 44 (FLOVENT HFA 44) 44 MCG/ACT inhalerIndications:Extr insic asthma, unspecified (HCC) Inhale 2 Puffs by mouth 2 times daily. 1 01/14/2010 Active albuterol HFA (PROVENTIL;VENTOLIN;PRO AIR) 108 (90 BASE) MCG/ACT inhalerIndications:Extr insic asthma, unspecified (HCC) Inhale 2 Puffs by mouth every 4 hours as needed for Shortness of Breath, Wheezing and Cough. 1 3 01/14/2010 Active olopatadine (PATADAY) 0.2 % ophthalmic solutionIndications:Oth er chronic allergic conjunctivitis 1 Drop daily. 2.5 mL 2 01/15/2010 Active Social History Tobacco Use Types Packs/Day Years Used Date Smoking Tobacco: Never Assessed Sex and Gender Information Value Date Recorded Sex Assigned at Not on file Gender Identity Not on file Sexual Orientation Not on file Plan of Treatment Not on file
--- OUTSIDE RECORDS SUMMARY | 2024-12-06 07:41 | XMS_ITS | Clinical Summary ---
Author Organization [facility] Address [address] [place] [address] Care Team Providers Care Oliver Filter Operator Name Role Phone Unavailable Primary Care Provider Unavailabl e Source Comments [facility],non-owned Affiliates and Associated Physician Practices is amultiple site organization consisting of ambulatory clinics and hospital sitesin [place], [place], [place] and [place]. This disclosure is being madepursuant to the Care Everywhere program and may not contain all informatio navailable regarding this patient. Last updated 18.[facility] [employer] Allergies No known active allergies Medications * Be aware that medications may not be up to date on this document. Alwaysverify current medications with the patient. Medication Sig Dispensed Refills Start Date End Date Status cetirizine (ZYRTEC) 10 MG tabletIndications:Aller gic rhinitis Take 1 Tab by mouth at bedtime. 30 3 01/14/2010 Active fluticasone propionate (FLUTICASONE PROPIONATE) 50 MCG/ACT nasal sprayIndications:Allerg ic rhinitis Grant 2 Sprays into each nostril daily. 1 3 01/14/2010 Active fluticasone hfa 44 (FLOVENT HFA 44) 44 MCG/ACT inhalerIndications:Extr insic asthma, unspecified (HCC) Inhale 2 Puffs by mouth 2 times daily. 1 3 01/14/2010 Active albuterol HFA (PROVENTIL;VENTOLIN;PRO AIR) 108 [...] Orientation Not on file Plan of Treatment Health Maintenance Due Date Last Done Comments PAP SMEAR 1993 HIV SCREENING 01/04/2008 HEPATITIS C SCREENING 12/30/2010 DTAP/TDAP/TD VACCINES (1 - Tdap) 01/04/2012 HEPATITIS B VACCINE (1 of 3 - 19+ 3-dose series) 01/04/2012 COVID-19 VACCINE ( - 2023-2 5 season) 2024 INFLUENZA VACCINE (#1) 2024 DEPRESSION SCREENING 10/04/2024 ZOSTER VACCINE (1 of 2) 2043 HIB VACCINE Aged Out No longer eligi ble based on patient's age to complete this topic HPV VACCINE Aged Out No longer eligi ble based on patient's age to complete this topic MENINGOCOCCAL (Group B) VACCINE Aged Out No longer eligible based on patient's age to complete this topic MENINGOCOCCAL VACCINE Aged Out No chano elen eligible based on patient's age to complete this topic PNEUMOCOCCAL VACCINE Aged Out No long er eligible based on patient's age to complete this topic
--- OUTSIDE RECORDS SUMMARY | 2024-12-06 07:41 | XMS_ITS | Patient Health Summary ---
Author Organization [facility] Address [address] [place] [address] Care Team Providers Care Finishing Room Supervisor Name Role Phone Unavailable Primary Care Provider Unavailabl e Note from [facility],non-owned Affiliates and Associated Physician Practices is amultiple site organization consisting of ambulatory clinics and hospital sitesin [place], [place], [place] and [place]. This disclosure is being madepursuant to the Care Everywhere program and may not contain all information available regarding this patient. Last updated 18.[facility] [employer] Allergies No known active allergies Medications * Be aware that medications may not be up to date on this document. Alwaysverify current medications with the patient. * cetirizine (ZYRTEC) 10 MG tablet(Started 01/14/2010) Take 1 Tab by mouth at bedtime. 3 refills left * fluticasone propionate (FLUTICASONE PROPIONATE) 50 MCG/ACT nasal spray(Started 01/14/2010) [place] 2 Sprays into each nostril daily. 3 refills left * fluticasone hfa 44 (FLOVENT HFA 44) 44 MCG/ACT inhaler(Started 01/14/2010) Inhale 2 Puffs by mouth 2 times daily. 3 refills left * albuterol HFA (PROVENTIL;VENTOLIN;PROAIR) 108 (90 BASE) MCG/ACT inhaler (Started 01/14/2010) Inhale 2 Puffs by mouth every 4 hours as needed for Shortness of Breath, Wheezing and Cough. 3 refills left * olopatadine (PATADAY) 0.2 % ophthalmic solution(Started 01/15/2010) 1 Drop daily. 2 refills left Social History Tobacco Use Types Packs/Day Years Used Date Smoking Tobacco: Never Assessed Sex and Gender Information Value Date Recorded Sex Assigned at Not on file Gender Identity Not on file Sexual Orientation Not on file
--- OUTSIDE RECORDS SUMMARY | 2024-12-06 07:41 | XMS_ITS | Encounter Summary ---
Author Organization [facility] Facility Care Team Providers Care Engineering Specialist Name Role Phone Phillip Coker MD Primary Care Provider [phone] Antonio Baldwin Primary Care Provider [phone] Encounter Details Date Type Department Care Team (Latest Contact Info) Description 07/20/2017 Orders Only [facility] Provider, MD Pérez [address] [place] [address] Social History Tobacco Use Types Packs/Day Years Used Date Smoking Tobacco: Never Assessed Comments Unknown Sex and Gender Information Value Date Recorded Sex Assigned at Not on file Legal Sex Female 11:27 PM SONG PLUGGER Gender Identity Female 08/08/2021 9:31 AM CDT Sexual Orientation Straight 08/08/2021 9: 31 AM CDT documented as of this encounter Plan of Treatment Not on file documented as of this encounter Procedures Procedure Name Priority Date/Time Associated Diagnosis Comments CARDIOLOGY REPORT 07/20/2017 12: 00 AM CDT documented in this encounter Results * CARDIOLOGY REPORT (07/20/2017 12:00 AM CDT) Anatomical Region Laterality Modality Other Narrative 07/20/2017 12:00 AM CDT Ordered by an unspecified provider. Historical Provider [facility] MARTHA HARDING Final Result documented in this encounter Visit Diagnoses Not on filedocumented in this encounter Additional Health Concerns Infection Onset Date Last Indicated Resolved Time COVID: Suspected 09/01/2021 09/01/2021 09/02/2021 1:03 AM SONG PLUGGER COVID: Suspected 10/01/2021 10/01/2021 10/02/2021 4:52 AM SONG PLUGGER COVID19 10/01/2021 10/01/2021 10/15/2021 3:07 AM SONG PLUGGER COVID: Recovered Comment:Added based on recent COVID infection. 10/15/2021 10/20/2021 02/12/2022 3:05 AM C DT COVID: Suspected 12/11/2021 12/11/2021 12/12/2021 12:07 AM SONG PLUGGER COVID: Suspected 06/21/2023 06/21/2023 06/21/2023 3:30 PM CDT COVID: Suspected 06/21/2023 06/21/2023 06/21/2023 6:32 PM CDT documented as of this encounter Care Teams Engineering Specialist Relationship Specialty Start Date End Date Phillip Coker MD PCP - General 12/30/18 06/30/22 Antonio Baldwin PA PCP - General Family Medicine 07/01/22 documented as of this encounter
--- OUTSIDE RECORDS SUMMARY | 2024-12-06 07:41 | XMS_ITS | Encounter Summary ---
Author Organization [facility] Facility Care Team Providers Care Drip Molder Name Role Phone Phillip Coker MD Primary Care Provider [phone] Antonio Baldwin Primary Care Provider [phone] Encounter Details Date Type Department Care Team (Latest Contact Info) Description 10/28/2018 Orders Only [facility] ProviderPérez MD [address] [place] [address] Social History Tobacco Use Types Packs/Day Years Used Date Smoking Tobacco: Never Assessed Comments Unknown Sex and Gender Information Value Date Recorded Sex Assigned at Not on file Legal Sex Female 11:27 PM LABEL SEWER Gender Identity Female 08/08/2021 9:31 AM CDT Sexual Orientation Straight 08/08/2021 9: 31 AM CDT documented as of this encounter Plan of Treatment Not on file documented as of this encounter Procedures Procedure Name Priority Date/Time Associated Diagnosis Comments CARDIOLOGY REPORT 10/28/2018 12: 00 AM LABEL SEWER documented in this encounter Results * CARDIOLOGY REPORT (10/28/2018 12:00 AM LABEL SEWER) Anatomical Region Laterality Modality Other Narrative 10/28/2018 12:00 AM LABEL SEWER Ordered by an unspecified provider. Historical Provider [facility] MARTHA HARDING Final Result documented in this encounter Visit Diagnoses Not on filedocumented in this encounter Additional Health Concerns Infection Onset Date Last Indicated Resolved Time COVID: Suspected 09/01/2021 09/01/2021 09/02/2021 1:03 AM LABEL SEWER COVID: Suspected 10/01/2021 10/01/2021 10/02/2021 4:52 AM LABEL SEWER COVID19 10/01/2021 10/01/2021 10/15/2021 3:07 AM LABEL SEWER COVID: Recovered Comment:Added based on recent COVID infection. 10/15/2021 10/20/2021 02/12/2022 3:05 AM C DT COVID: Suspected 12/11/2021 12/11/2021 12/12/2021 12:07 AM LABEL SEWER COVID: Suspected 06/21/2023 06/21/2023 06/21/2023 3:30 PM CDT COVID: Suspected 06/21/2023 06/21/2023 06/21/2023 6:32 PM CDT documented as of this encounter Care Teams Drip Molder Relationship Specialty Start Date End Date Phillip Coker MD PCP - General 12/30/18 06/30/22 Antonio Baldwin PA PCP - General Family Medicine 07/01/22 documented as of this encounter
--- OUTSIDE RECORDS SUMMARY | 2024-12-06 07:41 | XMS_ITS | Clinical Summary ---
Author Organization [facility] [place] [facility] [place] Address [address] [place] [address] Care Team Providers Care Assembler Wet Wash Name Role Phone Antonio Baldwin Primary Care Provider [phone] Allergies Active Allergy Reactions Criticality Noted Date Comments Sulfa (Sulfonamide Antibiotics) Hives Medium 12/2018 Medications fluticasone propionate (FLONASE) 50 mcg/actuation nasal sprayIndications:S ubacute sinusitis, unspecified location Administer 2 sprays into each nostril daily for 10 days 1 each 06/21/20 23 Active cetirizine (ZyrTEC) 10 mg tabletIndications: Seasonal allergic rhinitis due to pollen Take 1 tablet (10 mg total) by mouth daily as needed for allergies or rhinitis 10 tablet 1 01/21/20 24 Active atogepant (Qulipta) 60 mg tabletIndications: Intractable migraine with aura without status migrainosus Take 60 mg by mouth daily 30 tablet 2 01/21/20 24 Active ondansetron ODT (ZOFRAN-ODT) 4 mg disintegrating tablet Take 1 tablet (4 mg total) by mouth every 8 (eight) hours as needed for nausea 20 tablet 05/03/20 24 Active Additional Information Patient not taking.Reported on 11/30/2024 hydrocortisone 2.5 % cream Apply topically 2 (two) times a day 28 g 1 07/26/20 24 Active Additional Information Patient not taking.Reported on 11/30/2024 dulaglutide (Trulicity) 0.75 mg/0.5 mL pen injectorIndication s: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 Recommend bland diet. If symptoms worsen or do not improve recommend in person evaluation. Patient verbalized understanding and agreed to plan of care at this time. Left otitis media with effusion 06/21/2023 Assessment & Plan (06/21/2023 4:12 PM CDT): Augmentin Antibiotic ordered during this visit. Discussed using warm compresses to the affected side, and supportive measures including increase fluid intake, rest, use of Tylenol/Motrin for discomfort and fever. Increase fluid intake to prevent dehydration. Nasal saline and humidifier. May use honey +/- tea for sore throat and/or cough. Avoid smoke exposure. Monitor for respiratory distress or dehydration, if occurs seek care in ER. Patient understands and agrees with treatment plan. Call or RTC with any questions or concerns. Subacute sinusitis 06/21/2023 Assessment & Plan (06/21/2023 4:12 PM CDT): Rapid COVID, flu negative PCR pending Symptom duration 3 weeks Augmentin Medrol Dosepak Flonase 7-10 days, nasal saline spray 7-10 days Mucinex as cough expectorant and to promote drainage 7-10 days Zyrtec 7-10 days for drainage Tylenol as needed for pain Sugar free fluids PCP for persistent symptoms DM type 2 with diabetic dyslipidemia 02/01/2023 Assessment & Plan (09/24/2024 9:53 PM RIGGER HELPER): Chronic uncontrolled Intolerant to metformin Start chrisity Assessment & Plan (05/08/2024 2:00 PM CDT): Chronic uncontrolled Intolerant to metformin Start trulicity Assessment & Plan (04/27/2024 3:39 PM CDT): Chronic uncontrolled Intolerant to metformin Start Assessment & Plan (01/21/2024 9:17 AM CDT): Chronic new diagnosis Start metformin Assessment & Plan (02/01/2023 12:56 PM CDT): Chronic conditio n New diagnosis Work on low carb diet Refer to automotive repair technician Order a1c in 3mo Dyspnea 12/23/2022 Left foot pain 12/23/2022 Overview (12/23/2022): COnt diclofenac Cont podiatry Intractable migraine with aura without status mi grainosus 10/07/2022 Assessment & Plan (09/24/2024 9:52 PM RIGGER HELPER): Chronic stable and improving with quilipta. Continue current dosing Assessment & Plan (05/08/2024 1:54 PM CDT): Chronic stable and improving with quilipta. Continue current dosing Assessment & Plan (04/27/2024 3:40 PM CDT): Chronic stable and improved Significant reduction in headache days per month Continue qulipta Assessment & Plan (01/21/2024 9:06 AM CDT): Chronic condition Improved with quilipta Continue current dosing Assessment & Plan (12/17/2023 10:19 AM CDT): Chronic condition Improved with quilipta Continue current dosing Assessment & Plan (09/16/2023 4:00 PM RIGGER HELPER): Chronic condition Start quilipta Assessment & Plan (10/07/2022 10:23 AM RIGGER HELPER): Chronic uncontrolled Start quilipta Wrist sprain, right, initial encounter Assessment & Plan (08/05/2022 8:01 AM CDT): Advil regularly for 3 days then p.r.n. continue wrist splint, no indication currently for x-ray Psychophysiological insomnia 08/04/2022 Thoracogenic scoliosis of thoracolumbar region 0 12/01/2021 Assessment & Plan (08/05/2022 7:59 AM CDT): Undergoing/finishing physical therapy. Avoiding opioids, can continue local heat/ice/Advil p.r.n. cautiously with stomach. Given persistent pain, scoliosis, radiation into left leg, will get MRI Assessment & Plan (12/01/2021 12:34 PM RIGGER HELPER): Chronic with worsening pain Refer to p.tMary eval and treat Snoring 06/11/2021 Daytime somnolence 06/11/2021 Parasomnia 06/11/2021 BMI 40.0-44.9, adult 06/11/2021 Assessment & Plan (12/01/2021 12:42 PM RIGGER HELPER): Chronic condition not well controlled patient advised to continue work on low carb low starch diet as well as reducing caloric intake to 1200 calories a day Wellness with tsh and vit d level Assessment & Plan (06/20/2021 11:44 AM CDT): Chronic conditnion Patient to work on diet. Low carb/startch Isac restriction to 1500/day Nonsmoker 06/11/2021 Palpitation 06/11/2021 Cataplexy 06/11/2021 Hyperlipidemia 03/12/2021 Assessment & Plan (12/01/2021 12:42 PM RIGGER HELPER): Chronic condition order labs for evaluation Eczema of both hands 02/17/2021 Assessment & Plan (02/01/2023 12:56 PM CDT): Chronic and not well controlled Refill triamcinolone. Assessment & Plan (10/07/2022 10:30 AM RIGGER HELPER): Start triamcinolone tid prn hands Assessment & Plan (02/17/2021 7:54 AM CDT): Chronic condition New diagnosis Start triamcinolone cream Class 3 severe obesity due t o excess calories with serious comorbidity and body mass index (BMI) of 40.0 to 44.9 in adult 11/20/2020 Assessment & Plan (12/17/2023 10:24 AM CDT): Chronic uncontrolled, reduce processed carb/starch, exercise as vlad, whole foods Assessment & Plan (08/05/2022 8:01 AM CDT): Reviewed weight loss methods encouraged weight watcher or similar diet, reviewed importance of carb restriction treatment of sleep apnea Microcytosis 07/18/2020 Assessment & Plan (10/07/2022 10:31 AM RIGGER HELPER): Refer to hematology Family history of hemoglobin C disorder 06/25/20 20 Iron deficiency anemia, unspecified 06/25/2020 Assessment & Plan (12/17/2023 10:25 AM CDT): Chronic and recently not well controlled Continue iron supplement Order labs Assessment & Plan (08/05/2022 5:42 PM CDT): Suspect thalassemia instead of iron deficiency rechecking along with iron profile Assessment & Plan (06/20/2021 11:44 AM CDT): Chronic Refill iron for 30d Assessment & Plan (05/12/2021 9:20 AM CDT): Chronic condition unknown control Order iron panel and CBC Assessment & Plan (02/17/2021 8:04 AM CDT): Chronic condition unknown control patient has been noncompliant with medications order iron panel today Seasonal allergic rhinitis due to pollen 018 Assessment & Plan (01/21/2024 9:07 AM CDT): Chronic not well controlled Refill and continue zyrtec and continue flonase Gastroesophageal reflux disease without esophagi tis 10/15/2017 Assessment & Plan (06/25/2020 11:30 AM CDT): Well controlled with diet and infrequent otc medication when needed. Edema of lower extremity 08/17/2017 Low back pain 07/26/2017 Assessment & Plan (10/07/2022 10:31 AM RIGGER HELPER): Chronic Failed p.t. and xrays and nsaids Order mri l/s spine Assessment & Plan (06/20/2021 11:40 AM CDT): Chronic intermittent Order xray l/s spine Vitamin D deficiency 07/26/2017 Assessment & Plan (03/12/2021 1:26 PM CDT): Chronic condition not at goal start vitamin-D Assessment & Plan (02/17/2021 8:04 AM CDT): Chronic condition Acute bilateral low back pain without sciatica 1 Intrinsic eczema 02/09/2017 Assessment & Plan (12/17/2023 10:17 AM CDT): Chronic not well controlled Refer to dermatolgoy CHRISTINA on CPAP 01/05/2017 Assessment & Plan (08/05/2022 8:00 AM CDT): Emphasized importance of compliance with CPAP, untreated can promote further weight gain, worsen general health in multiple ways reviewed Assessment & Plan (06/25/2020 11:29 AM CDT): She is needing cpap and is following with sleep medicine Encounters Date Type Department Care Team Description 12/04/2024 Orders Only [facility] Dermatology [address] [place] [address] Health [address] [place] [address] Blu Hayes MD Rash (Primary Dx) 12/04/2024 Telephone [facility] [address] [place] [address] 4th Floor [address] [place] [address] Maya Granger Scheduling Appointments 11/30/2024 5:24 PM RIGGER HELPER - 11/30/2024 11:59 PM RIGGER HELPER Hospital Encounter [facility] [address] [place] [address] Discharge Disposition: Discharge to home or self care 11/30/2024 2:00 PM RIGGER HELPER Office Visit [facility] [address] [place] [address] 4th Floor [address] [place] [address] Blu Hayes MD Rash 11/30/2024 Orders Only [address] [address] Blu Hayes MD Rash 11/30/2024 Telephone [facility] Family Medicine at [address] [place] [phone] Antonio Baldwin PA Appointment Request 10/24/2024 Telephone [facility] Family Medicine at [address] [place] [phone] Antonio Baldwin PA 09/29/2024 Telephone [facility] Family Medicine at [address] [place] [phone] Antonio Baldwin PA 09/25/2024 Telephone [facility] Medical [facility] Family Medicine at [address] [place] [address] Antonio Baldwin PA Lab Results 09/23/2024 7:20 AM RIGGER HELPER Lab [facility] Lab [facility] [place] [address] Accident caused by hypodermic needle, subsequent encounter; 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) 09/22/2024 10:30 AM RIGGER HELPER Office Visit [facility] Family Medicine at [address] [place] [address] Antonio Baldwin PA Rash (Primary Dx); Accident caused by hypodermic needle, subsequent encounter; 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); Intractable migraine with aura without status migrainosus 09/16/2024 Patient Self-Triage [facility] HealthCare/ Physicians [address] [place] [address] Mychart, Generic Provider 09/14/2024 1:15 PM RIGGER HELPER Telemedicine [facility] Virtual Care [address] [place] [address] Mali Bourne NP Upper respiratory tract infection, unspecified type (Primary Dx) 09/14/2024 Nurse Triage [facility] Family Medicine at [address] [place] [phone] Antonio Baldwin PA 09/14/2024 Patient Self-Triage [facility]/ Physicians [address] [place] [phone] Mychart, Generic Provider 09/11/2024 Patient Self-Triage [facility]/ Physicians [address] [place] [phone] Mychart, Generic Provider from Last 3 Months Immunizations Immunization Administration Dates Next Due DTP 01/30/1997 DTP / HiB 05/07/1994, 3,1993,03/10 Hep A, Unspecified 02/10/2003,07/29/2002 Hep B, Adolescent or Pediatric 8,1993,1993,01/31 Influenza, Quadrivalent, Spl it, Preservative Free, Intramuscular 07/23/2023,08/05/2022,07/22/2016 Influenza, Trivalent, Cell Culture-based MDCK, Preservative Free, Antibiotic Free, Intramuscular 06/24/2024 Influenza, Trivalent, IM (MDV) 08/11/2011 Influenza, Trivalent, Preser vative Free, Intramuscular 06/30/2015,10/01/2012 Influenza, Unspecified 07/04/2023,2021(Deferred: Patient Refused),07/30/2007,09/18/2006 MMR 01/30/1997,05/07/1994 Meningococcal MCV4P (Menactra) 03/13/2006 OPV 01/30/1997, 4,1993,03/10 TD Preservative Free 06/24/2024 Tdap 01/11/2020, 0,08/13/2015,05/03,03/13/2006 Varicella 02/10/1999,04/01/1998 Surgical History Surgery Date Site/Laterality Comments SECTION 04/20/2020 US ABDOMEN COMPLETE W LIVER DOPPLER (C) 12/30/2018 R ight Medical History Medical History Date Comments Known health problems: none Vitamin D deficiency GERD (gastroesophageal reflux disease) Migraines Sleep apnea Menstrual problem Family History Medical History Relation Name Comments No Known Problems Brother 1 No Known Problems Brother 2 No Known Problems Daughter Diabetes Father Bert Diabetes type II Father Bert Heart disease Maternal Grandmother Shirley Hypertension Maternal Grandmother Shirley Heart defect Mother De[place] Heart disease Mother De'[place]and Hypertension Mother De[place] Diabetes Mother's Brother Jeremy Cancer Paternal Grandfather Sean Francois Cancer Paternal Grandmother Gayle Francois No Known Problems Sister 1 No Known Problems Sister 2 Thyroid disease Sister 3 Thyroid disease Sister 4 No Known Problems Son Relation Name Status Comments Brother 1 Alive Brother 2 Alive Daughter Alive Father Bert Alive Maternal Grandmother Shirley Mother De[place] Alive Mother's Brother Jeremy Paternal Grandfather Sean Francois Paternal Grandmother Gayle Francois Sister 1 Alive Sister 2 Alive Sister 3 Alive Sister 4 Alive Son Alive Social History Tobacco Use Types Packs/Day Years Used Date Smoking Tobacco: Never Smokeless Tobacco: Never Tobacco Cessation:Counseling Given: Not Answered Alcohol Use Standard Drinks/Week Comments Never 0 [...] on file Legal Sex Female 11:27 PM RIGGER HELPER Gender Identity Female 08/08/2021 9:31 AM CDT Sexual Orientation Straight 08/08/2021 9: 31 AM CDT Obstetrics History Last Filed Vital Signs Vital Sign Reading Time Taken Comments Blood Pressure 114/82 09/22/2024 11:36 AM RIGGER HELPER Pulse 61 09/22/2024 11:36 AM RIGGER HELPER Temperature 36.5 C (97.7 F) 09/22/2024 11:36 AM RIGGER HELPER Respiratory Rate 18 09/22/2024 11:36 AM RIGGER HELPER Oxygen Saturation 99% 09/22/2024 11:36 AM RIGGER HELPER Inhaled Oxygen Concentration - - Weight 104.1 kg (229 lb 8 oz) 09/22/2024 11:36 A M RIGGER HELPER Height 157.5 cm (5' 2 ) 09/22/2024 11:36 AM RIGGER HELPER Body Mass Index 41.98 09/22/2024 11:36 AM RIGGER HELPER Plan of Treatment Health Maintenance Due Date Last Done Comments Cervical Cancer Screening 1993 Dilated Eye Exam 1993 Foot Exam 1993 Regular Well Visit/Exam 18-64 2011 Pneumococcal vaccine <65 (1 of 2 - PCV) 01/04/2012 Covid-19 Vaccine ( season) 2024 06/14/2021, 05/24/2021 Hemoglobin A1C 03/24/2025 09/23/2024, 07/02/2024, 12/17/2023, Additional history exists Depression Screening 09/22/2025 09/22/2024, 09/16/2023, 08/05/2022, Additional history exists Albumin Creatinine Ratio, Urine 09/23/2025 09/23/2024 Lipid Panel 09/23/2025 09/23/2024, 01/02, 10/07/2022, Additional history exists eGFR 09/23/2025 09/23/2024, 12/02, 10/02/2023, Additional history exists DTaP/Tdap/Td Vaccine (12 - Td or Tdap) 06/24/2034 06/24/2024, 01/11/2020, 10/24/2019, Additional history exists Hepatitis B Screening Completed 04/01/1998 , 1993, 1993, Additional history exists Varicella Vaccines Completed 02/10/1999, 04/01/1998 Influenza Vaccine Completed 06/24/2024, , 07/04/2023, Additional history exists Hepatitis C Screening Completed 09/23/2024 , 05/23/2024, 01/15/2023 HPV Vaccines Aged Out No longer eligi ble based on patient's age to complete this topic Procedures Procedure Name Priority Date/Time Associated Diagnosis Comments SURGICAL PATHOLOGY Routine 11/30/2024 2: 33 PM RIGGER HELPER Rash EGFR Routine 09/23/2024 7:24 AM RIGGER HELPER 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) DIFFERENTIAL AUTO Routine 09/23/2024 7:2 4 AM RIGGER HELPER 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) CBC WITH AUTO DIFFERENTIAL Routine 09/23/2024 7:24 AM RIGGER HELPER 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) COMPREHENSIVE METABOLIC PANEL Routine 09/23/2024 7:24 AM RIGGER HELPER 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) LIPID PANEL Routine 09/23/2024 7:24 AM RIGGER HELPER 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) HEMOGLOBIN A1C Routine 09/23/2024 7:24 AM RIGGER HELPER 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) HEPATITIS B SURFACE ANTIBODY (IMMUNE STATUS) Routine 09/23/2024 7:24 AM RIGGER HELPER Accident caused by hypodermic needle, subsequent encounter HIV 1/2 ANTIBODY PLUS P24 ANTIGEN Routine 09/23/2024 7:24 AM RIGGER HELPER Accident caused by hypodermic needle, subsequent encounter HEPATITIS C ANTIBODY Routine 09/23/2024 7:24 AM RIGGER HELPER Accident caused by hypodermic needle, subsequent encounter ALBUMIN CREATININE RATIO, URINE Routine 09/23/2024 7:20 AM RIGGER HELPER 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 The content of this report is essential for diagnosis and may provide important critical findings. This information may be unfamiliar to patients to review without a medical professional present. It is advised that the patient review this report in the presence of a health care provider who can answer questions and explain the details. SURGICAL PATHOLOGY REPORT FINAL Patient Name: YENNI FRANCOIS Gender: F : 1995 (Age: 29) Address: [address] [place] [phone] Hospital #: [id number] Taken:11/30/2024 Received:11/30/2024 Reported: 12/05/2024 Patient Type: [facility] SPECIMEN Service: UNKNOWN Location: Physician(s): Blu Nguyen MD Diagnosis: Skin, right upper arm, punch biopsy: SPONGIOTIC DERMATITIS Note: These changes may be seen in nummular dermatitis, allergic contact dermatitis, id reactions and in patients who clinically appear to have atopic dermatitis. There is a mild superficial perivascular inflammatory infiltrate composed of lymphohistiocytes and plasma cells. Immunohistochemical stains for T. pallidum organisms are negative and a PAS is also negative for the presence of fungal microorganisms. Colloidal iron reveals normal levels of dermal mucin. The changes of connective tissue disease and sarcoidosis are note identified. Overall, the features are most compatible with a resolving eczematous process. Clinical correlation is advised. This case has been reviewed with another member of the dermatopathology faculty who agrees with the diagnosis. ag/12/04/2024 08:41 By this signature, I attest that the above diagnosis is based upon my personal examination of the slides(and/or other material indicated in the diagnosis). Regulo Martinez MD, PhD Report Electronically Reviewed and Signed Out By Regulo Matrinez MD, PhD 12/05/2024 15:57:47 Microscopic Description and Comment: There is spongiosis, psoriasiform epidermal hyperplasia and a superficial perivascular inflammatory cell infiltrate that contains lymphocytes, histiocytes and eosinophils. There is confluent parakeratosis atop a normal basket weave stratum corneum. Because dermatophyte infections can have similar findings, a PAS stain was performed to identify the presence of fungal organisms; it is negative for hyphae. (L30.9) Microscopic slide review and interpretation for this case was performed at the Dermatopathology Center, Department of Pathology and Immunology, [facility], [address] [place] [address], Suite [facility], [place] [address] CLIA # [id number] Sharonda Estevez M.D. History: The patient is a 29-year-old woman presenting for annular scaly rash back/upper arms; differential diagnosis of SC LE versus eczematous versus sarcoid. Operative procedure: Skin punch biopsy. Specimen(s) Received: A: Skin, right upper arm, punch biopsy Gross Description: Received in formalin, labeled with the patient s identifiers and right upper arm is a 0.4 x 0.4 cm skin punch excised to a depth of 0.6 cm. The skin surface is brown and unremarkable. The margin is inked blue. The specimen is bisected. Labeled A1. Jar 0. elsw11/30/2024 17:58 PA(s): Pamela Solis By this signature, I attest that the above diagnosis is based upon my personal examination of the slides(and/or other material). Addenda/Procedures The performance characteristics of some immunohistochemical stains, fluorescence in-situ hybridization tests and immunophenotyping by flow cytometry cited in this report (if any) were determined by the Surgical Pathology and Flow Cytometry Departments at [facility] as part of an ongoing lead quality technician program and in compliance with federally mandated regulations drawn from the Clinical Laboratory Improvement Act of 1988 (CLIA '88). Some of these tests rely on the use of analyte specific reagents and are subject to specific labeling requirements by the US Food and Drug Administration. Such diagnostic tests may only be performed in a facility that is certified by the Department of Health and Human Services as a high complexity laboratory under CLIA '88. The FDA has determined that such clearance or approval is not necessary. This test is used for clinical purposes. It should not be regarded as investigational or for research. Nevertheless, federal rules concerning the medical use of analyte specific reagents require that the following disclaimer be attached to the report: This test was developed and its performance characteristics determined by the Surgical Pathology and Flow Cytometry Departments of [facility]. It has not been cleared or approved by the U. S. Food and Drug Administration. IMAGES AND SCANNED DOCUMENTS, IF INCLUDED, ONLY VIEWABLE IN PDF VERSION OF REPORT Blu Hayes MD LAB PATHOLOGY OR DERABLES Final Result PATHOLOGY [facility] 3rd Floor [place], [place] [phone] * eGFR (09/23/2024 7:24 AM RIGGER HELPER) eGFR >90 >=60 mL/min/1. 73 m2 Comment: Interpretive Data Reference Interval Normal >/= 90 mL/min/1.73m2 Mildly decreased* 60 - 89 mL/min/1.73m2 Mildly to moderately decreased 45 - 59 mL/min/1.73m2 Moderately to severely decreased 30 - 44 mL/min/1.73m2 Severely decreased 15 - 29 mL/min/1.73m2 Kidney Failure < 15 mL/min/1.73m2 *Relative to young adult level Estimated glomerular filtration rate is determined by the 2020 CKD-EPI equation recommended by the National Kidney Foundation (A Unifying Approach to GFR Estimation: Recommendations of the NKF-ASK Task Force on Reassessing the Inclusion of Race in Diagnosing Kidney Disease, DEIONSN 2020). The CKD-EPI equation should not be used for patients with unstable renal function and has not been validated in children and those over 70. Current interpretive data was last reviewed 2021. Blood 09/23/2024 7:24 AM RIGGER HELPER 09/23/2024 9:41 AM RIGGER HELPER Antonio BAPTISTE LAB BLOOD ORDERABLES Final Resu lt [facility] [address] [facility] [place] [address] * Differential, auto (09/23/2024 7:24 AM RIGGER HELPER) Neutrophil abs 5.4 1.5 - 6.5 K/cumm Imm gran abs 0.0 0.0 - 0.1 K/cumm [facility] Lymphocyte abs 2.2 0.8 - 3.3 K/cumm [facility] [facility]UGHTERS Monocyte abs 0.4 0.2 - 0.8 K/cumm [facility] Eosinophil abs 0.1 0.0 - 0.5 K/cumm [facility] Basophil abs 0.0 0.0 - 0.1 K/cumm [facility] Neutrophil pct 66.1 % [facility] Comment: Interpretive Data Percent cell count reference ranges are not reported, since discordance with absolute values may lead to misinterpretation of CBC data. Current Interpretive Data was last revised on 2018. Imm gran pct 0.5 % [facility] Comment: Interpretive Data Percent cell count reference ranges are not reported, since discordance with absolute values may lead to misinterpretation of CBC data. Current Interpretive Data was last revised on 2018. Lymphocyte pct 26.8 % [facility] Comment: Interpretive Data Percent cell count reference ranges are not reported, since discordance with absolute values may lead to misinterpretation of CBC data. Current Interpretive Data was last revised on 2018. Monocyte pct 5.3 % [facility] Comment: Interpretive Data Percent cell count reference ranges are not reported, since discordance with absolute values may lead to misinterpretation of CBC data. Current Interpretive Data was last revised on 2018. Eosinophil pct 0.9 % [facility] Comment: Interpretive Data Percent cell count reference ranges are not reported, since discordance with absolute values may lead to misinterpretation of CBC data. Current Interpretive Data was last revised on 2018. Basophil pct 0.4 % [facility] Comment: Interpretive Data Percent cell count reference ranges are not reported, since discordance with absolute values may lead to misinterpretation of CBC data. Current Interpretive Data was last revised on 2018. Blood 09/23/2024 7:24 AM RIGGER HELPER 09/23/2024 9:40 AM RIGGER HELPER Antonio [facility] BLOOD ORDERABLES Final Resu lt Performing Organization Address [facility] Co de Phone Number [address] [address] * HIV 1/2 Antibody plus p24 Antigen Blood (09/23/2024 7:24 AM RIGGER HELPER) [facility] HIV 1/2 ab + p24 ag Nonreactive Nonreactive Comment:Nonreactive for HIV- 1 antigen and HIV-1/HIV-2 antibodies. No laboratory evidence of HIV infection. If acute HIV infection is suspected, consider testing for HIV-1 RNA. Current interpretive data was last revised on 22. Blood 09/23/2024 7:24 AM RIGGER HELPER 09/23/2024 9:41 AM RIGGER HELPER Antonio [facility] MICROBIOLOGY - GENERAL ORDE RABLES Final Result Performing Organization Address [facility] Co de Phone Number [address] [address] * (ABNORMAL) CBC with auto differential (09/23/2024 7:24 AM RIGGER HELPER) [facility] WBC 8.2 3.8 - 9.9 K/cumm Hgb 11.0(L) 11.9 - 15.5 g/dL [facility] Hct 35.1(L) 35.6 - 45.5 % [facility] Plt 532(H) 150 - 400 K/cumm [facility] MPV 8.8(L) 9.1 - 12.3 fL [facility] RBC 4.57 3.90 - 5.20 M/cumm [facility] MCV 76.8(L) 81.3 - 96.4 fL [facility] MCH 24.1(L) 27.1 - 33.3 pg [facility] MCHC 31.3(L) 32.3 - 35.7 g/dL [facility] RDW CV 15.7(H) 11.1 - 14.9 % [facility] RDW SD 43.6 35.7 - 48.1 fL [facility] NRBC abs 0.00 0.00 - 0.01 K/cumm [facility] Blood 09/23/2024 7:24 AM RIGGER HELPER 09/23/2024 9:40 AM RIGGER HELPER Antonio [facility] LAB BLOOD ORDERABLES Final Resu lt Performing Organization Address [facility] de Phone Number [id number] Department [place] [address] * Hepatitis C antibody Blood (09/23/2024 7:24 AM RIGGER HELPER) Hep C Ab Nonreactive Nonreactive Comment: Antibodies to HCV not detected. Does NOT exclude the possibility of recent exposure to HCV. Current interpretive data was last revised on 22 Interpretive Data Nonreactive: Antibodies to HCV not detected. Does NOT exclude the possibility of recent exposure to HCV. Equivocal: Equivocal for HCV antibodies. Supplemental molecular testing will be automatically performed to determine infection status in accordance with current CDC screening recommendations. Reactive: Positive for HCV antibodies. This may represent current or past HCV infection. Supplemental molecular testing will be automatically performed to determine current infection status in accordance with current CDC screening recommendations. Interpretive data was last revised on 2019. Blood 09/23/2024 7:24 AM RIGGER HELPER 09/23/2024 9:41 AM RIGGER HELPER Antonio [facility] MICROBIOLOGY - GENERAL ORDE GUILLE Final Result Performing Organization Address [facility] de Phone Number [facility] [address] [place] [address] * Hepatitis B surface antibody (immune status) Blood (09/23/2024 7:24 AM RIGGER HELPER) [facility] HBsAb (immune status) Reactive Comment: Interpretive Data Nonreactive: This result is consistent with a lack of immunity to Hepatitis B Virus when used in the setting of routine screening. Equivocal: The immune status of the individual should be further assessed, if appropriate, after consideration of clinical status, risk factors, and additional diagnostic information. Reactive: This result is consistent with immunity to Hepatitis B Virus when used in the setting of routine screening. Current interpretive data was last revised on 19. HBsAb (immune status) index 76.8 mIUnits/m L [facility] Blood 09/23/2024 7:24 AM RIGGER HELPER 09/23/2024 9:41 AM RIGGER HELPER us Antonio [facility] MICROBIOLOGY - [facility] Final Result Performing Organization Address [facility] Co de Phone Number [address] [address] * (ABNORMAL) Hemoglobin A1c (09/23/2024 7:24 AM RIGGER HELPER) [facility] Hgb A1C 6.7(H) 4.0 - 5.6 % Estimated Average Glucose 146 mg/dL [facility] Comment: The ADA recommends reporting an estimated Average Glucose (eAG) with all Hemoglobin A1c results using the equation derived from a study of 507 normal and diabetic adults. Minority populations were underrepresented and children were not included. (Diabetes Care 31:2459-7482, 2008). The eAG is not equivalent to a fasting glucose. Blood 09/23/2024 7:24 AM RIGGER HELPER 09/23/2024 9:40 AM RIGGER HELPER us Antonio [facility] LAB BLOOD ORDERABLES Final Resu lt Performing Organization Address City/[facility]/ZIP Co de Phone Number [place] [phone] [place] [address] * (ABNORMAL) Lipid panel (09/23/2024 7:24 AM RIGGER HELPER) Cholesterol 142 30 - 199 mg/dL Comment: Interpretive Data Ages < or = 19 years Acceptable: <170 mg/dL Borderline high: 170-199 mg/dL High: >or= 200 mg/dL Ages > or = 20 years Desirable: <200 mg/dL Borderline high: 200-239 mg/dL High: >or= 240 mg/dL Literature References: 1. Expert Panel on Integrated Guidelines for Cardiovascular Health and Risk Reduction in Children and Adolescents. Pediatrics 2011;128:S213 2. NCEP Expert Panel. Circulation 2004;110:227 Current Interpretive Data was last revised on 2018. Triglycerides 54 <=149 mg/dL [facility] Comment: Interpretive Data Ages < or = 9 years Acceptable: <75 mg/dL Borderline high: 75-99 mg/dL High: >or= 100 mg/dL Ages 10 to 20 years Acceptable: <90 mg/dL Borderline high: 90-129 mg/dL High: >or= 130 mg/dL Ages > or = 20 years Desirable: <150 mg/dL Borderline high: 150-199 mg/dL High: 200-499 mg/dL Very high: >or= 499 mg/dL Literature References: 1. Expert Panel on Integrated Guidelines for Cardiovascular Health and Risk Reduction in Children and Adolescents. Pediatrics 2011;128:S213 2. NCEP Expert Panel. Circulation 2004;110:227 Current Interpretive Data was last revised on 2018. HDL 33(L) >=40 mg/dL [facility] Comment: Interpretive Data Ages < or = 19 years Acceptable: >45 mg/dL Borderline low: 40-45 mg/dL Low: <40 mg/dL Ages > or = 20 years Desirable: >or= 60 mg/dL Low: <40 mg/dL Literature References: 1. Expert Panel on Integrated Guidelines for Cardiovascular Health and Risk Reduction in Children and Adolescents. Pediatrics 2011;128:S213 2. NCEP Expert Panel. Circulation 2004;110:227 Current Interpretive Data was last revised on 2018. LDL, calculated 97 <=129 mg/dL [facility] Comment: Interpretive Data Ages < or = 19 years Acceptable: <110 mg/dL Borderline high: 110-129 mg/dL High: >or= 130 mg/dL Ages > or = 20 years Optimal: <100 mg/dL Near optimal: 100-129 mg/dL Borderline high: 130-159 mg/dL High: >160 mg/dL Calculated using the Oliver LDL-C estimating equation. This equation was implemented on 2024. Prior to this date LDL-C was estimated using the Friedewald equation. Literature References: 1. Expert Panel on Integrated Guidelines for Cardiovascular Health and Risk Reduction in Children and Adolescents. Pediatrics 2011;128:S213 2. NCEP Expert Panel. Circulation 2004;110:227 3. Oliver Bernard et al. NELIA Cardiol. 2020 February 01;5(5):540-548. doi: 10.1001/[email or web address].2020.0013 Current Interpretive Data was last revised on 2024. Non-HDL Cholesterol 109 mg/dL [facility] Comment: Interpretive Data Ages < or = 19 years Acceptable: <120 mg/dL Borderline high: 120-144 mg/dL High: >145 mg/dL Ages > or = 20 years When triglycerides are >200 mg/dL, Non-HDL cholesterol is a secondary target of therapy with treatment goals that are 30 mg/dL greater than the LDL cholesterol target. Literature References: 1. Expert Panel on Integrated Guidelines for Cardiovascular Health and Risk Reduction in Children and Adolescents. Pediatrics 2011;128:S213 2. NCEP Expert Panel. Circulation 2004;110:227 Current Interpretive Data was last revised on 2018. Chol/HDL ratio 4 [facility] Blood 09/23/2024 7:24 AM RIGGER HELPER 09/23/2024 9:41 AM RIGGER HELPER us Antonio [facility]APT[facility] LAB BLOOD ORDERABLES Final Resu lt [facility] [address] [facility] Department [place] [address] * (ABNORMAL) Comprehensive metabolic panel (09/23/2024 7:24 AM RIGGER HELPER) Sodium 136 135 - 145 mmol/L Potassium, pl 3.9 3.3 - 4.9 mmol/L [facility] Chloride 103 97 - 110 mmol/L [facility] CO2 25 22 - 32 mmol/L [facility] Anion gap 8 2 - 15 mmol/L [facility] BUN 9 6 - 25 mg/dL [facility] Creatinine 0.58(L) 0.60 - 1.10 mg/dL [facility] Glucose 105 70 - 199 mg/dL [facility] Comment: Interpretive Data Fasting glucose >/= 126 mg/dl is diagnostic for diabetes. Fasting is defined as no caloric intake for at least 8 hours. Fasting glucose between 100 mg/dl to 125 mg/dl is diagnostic of prediabetes. In a patient with classic symptoms of hyperglycemia or hyperglycemic crisis, a random glucose >/= 200 mg/dl is diagnostic for diabetes. In the absence of unequivocal hyperglycemia, results should be confirmed by repeat testing. The classification and Diagnosis of Diabetes Diabetes Care 202; 46: S19-S40. Current interpretive data was last revised 2022. Calcium 8.6 8.5 - 10.3 mg/dL [facility] Bilirubin, total 0.2 0.1 - 1.2 mg/dL [facility] Protein, pl 6.6 6.5 - 8.5 g/dL [facility] Albumin 3.8 3.5 - 5.0 g/dL [facility] Alk phos 71 40 - 130 Units/L [facility] ALT 11 7 - 45 Units/L [facility] AST 15 10 - 45 Units/L [facility] Blood 09/23/2024 7:24 AM RIGGER HELPER 09/23/2024 9:41 AM RIGGER HELPER us Antonio [facility] BLOOD ORDERABLES Final Resu lt [facility] [address] [facility] Department [place] [address] * Albumin Creatinine Ratio, Urine (09/23/2024 7:20 AM RIGGER HELPER) Albumin Ur <12.0 mg/L Comment: Interpretive Data No reference range established. Current interpretive data was last revised 2019. Creatinine Ur 197.0 mg/dL [facility] Comment: Interpretive Data No reference range established. Current interpretive data was last revised 2019. Albumin Creatinine Ratio, Ur <6 1 - 29 mg/g [facility] Urine 09/23/2024 7:20 AM RIGGER HELPER 09/23/2024 9:37 AM RIGGER HELPER us Antonio [facility] URINE ORDERABLES Final Resu lt [facility] [address] [facility] Department [place] [address] from Last 3 Months Insurance [facility] * Guarantor: [facility] [employer]. 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
--- OUTSIDE RECORDS SUMMARY | 2024-12-06 07:41 | XMS_ITS | Referral Summary ---
Author Organization [facility] [address] [facility] Address [address] [place] [address] Care Team Providers Care Power House Engineer Name Role Phone Antonio Baldwin Primary Care Provider [phone] Encounters Date Type Department Care Team Description 12/04/2024 Orders Only [facility] Dermatology [address] [place] [address] [address] [place] [address] Blu Hayes MD Rash (Primary Dx) 12/04/2024 Telephone [facility] [address] [place] [address] Floor [address] [place] [phone] Maya Granger Scheduling Appointments 11/30/2024 Orders Only [facility] [address] [place] [address] Blu Hayes MD Rash 11/30/2024 5:24 PM METER/RELAY TECHNICIAN - 11/30/2024 11:59 PM METER/RELAY TECHNICIAN Hospital Encounter [facility] [address] [place] [address] Discharge Disposition: Discharge to home or self care 11/30/2024 Telephone [facility] Family Medicine at [place] [address] [address] [place] [address] Antonio Baldwin PA Appointment Request 11/30/2024 2:00 PM METER/RELAY TECHNICIAN Office Visit [facility] [address] [place] [address] 4th Floor [address] [place] [phone] Blu Hayes MD Rash 10/24/2024 Telephone [facility] Family Medicine at [address] [place] [address] Antonio Baldwin PA 09/29/2024 Telephone [facility] Family Medicine at [address] [place] [address] Antonio Baldwin PA 09/25/2024 Telephone [facility] Family Medicine at [address] [place] [address] Antonio Baldwin PA Lab Results 09/23/2024 7:20 AM METER/RELAY TECHNICIAN Lab [facility] [address] [place] [address] Accident caused by hypodermic needle, subsequent encounter; 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) 09/22/2024 10:30 AM METER/RELAY TECHNICIAN Office Visit [facility] Family Medicine at [address] [place] [address] Antonio Baldwin PA Rash (Primary Dx); Accident caused by hypodermic needle, subsequent encounter; 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); Intractable migraine with aura without status migrainosus 09/16/2024 Patient Self-Triage [facility] [address] [place] [address] Mychart, Generic Provider 09/14/2024 Nurse Triage [facility] Family Medicine at [address] [place] [phone] Antonio Baldwin PA 09/14/2024 1:15 PM METER/RELAY TECHNICIAN Telemedicine [address] [address] Mali Bourne NP Upper respiratory tract infection, unspecified type (Primary Dx) 09/14/2024 Patient Self-Triage [facility] [address] [place] [phone] Chevy, Generic Provider 09/11/2024 Patient Self-Triage [facility] [address] [place] [address] Mychart, Generic Provider from Last 3 Months Allergies Active Allergy Reactions Criticality Noted Date Comments Sulfa (Sulfonamide Antibiotics) Hives Medium 0412/2018 Medications fluticasone propionate (FLONASE) 50 mcg/actuation nasal [...] Plan (05/03/2024 3:54 PM CDT): Will send gee to patient pharmacy. Recommend bland diet. If [...] 02/01/2023 Assessment & Plan (09/24/2024 9:53 PM METER/RELAY TECHNICIAN): Chronic uncontrolled Intolerant to metformin Start trulicity Assessment & Plan (05/08/2024 2:00 PM CDT): Chronic uncontrolled Intolerant to metformin Start trulicity Assessment & Plan (04/27/2024 3:39 PM CDT): Chronic uncontrolled Intolerant to metformin Start Assessment & Plan (01/21/2024 9:17 AM CDT): Chronic new diagnosis Start metformin Assessment & Plan (02/01/2023 12:56 PM CDT): Chronic conditio n New diagnosis Work on low carb diet Refer to steam flattener Order a1c in 3mo Dyspnea 12/23/2022 Left foot pain 12/23/2022 Overview (12/23/2022): COnt diclofenac Cont podiatry Intractable migraine with aura without status mi grainosus 10/07/2022 Assessment & Plan (09/24/2024 9:52 PM METER/RELAY TECHNICIAN): Chronic stable and improving with quilipta. Continue [...] dosing Assessment & Plan (09/16/2023 4:00 PM METER/RELAY TECHNICIAN): Chronic condition Start quilipta Assessment & Plan (10/07/2022 10:23 AM METER/RELAY TECHNICIAN): Chronic uncontrolled Start quilipta Wrist sprain, right, [...] MRI Assessment & Plan (12/01/2021 12:34 PM METER/RELAY TECHNICIAN): Chronic with worsening pain Refer to pmichelle lockwood and treat Snoring 06/11/2021 Daytime somnolence 06/11/2021 Parasomnia 06/11/2021 BMI 40.0-44.9, adult 06/11/2021 Assessment & Plan (12/01/2021 12:42 PM METER/RELAY TECHNICIAN): Chronic condition not well controlled patient advised [...] 03/12/2021 Assessment & Plan (12/01/2021 12:42 PM METER/RELAY TECHNICIAN): Chronic condition order labs for evaluation Eczema of both hands 02/17/2021 Assessment & Plan (02/01/2023 12:56 PM CDT): Chronic and not well controlled Refill triamcinolone. Assessment & Plan (10/07/2022 10:30 AM METER/RELAY TECHNICIAN): Start triamcinolone tid prn hands Assessment & [...] 07/18/2020 Assessment & Plan (10/07/2022 10:31 AM METER/RELAY TECHNICIAN): Refer to hematology Family history of hemoglobin C disorder 06/25/20 Iron deficiency anemia, unspecified 06/25/2020 Assessment & [...] 07/26/2017 Assessment & Plan (10/07/2022 10:31 AM METER/RELAY TECHNICIAN): Chronic Failed p.t. and xrays and nsaids [...] cpap and is following with sleep medicine Immunizations Immunization Administration Dates Next Due DTP [...] Free 06/24/2024 Tdap 01/11/2020, 0,08/13/2015,05/03,03/13/2006 Varicella 02/10/1999,04/01/1998 Social History Tobacco Use Types Packs/Day Years [...] money to buy more. Never true 11/30/19 25 Within the past 12 months, t he food you bought just didn't last and you didn't have money to get more. Never true 11/30/2024 Comments Unknown Sex and Gender Information Value Date Recorded Sex Assigned at Not on file Legal Sex Female 11:27 PM METER/RELAY TECHNICIAN Gender Identity Female 08/08/2021 9:31 AM CDT Sexual Orientation Straight 08/08/2021 9: 31 AM CDT Last Filed Vital Signs Vital Sign Reading Time Taken Comments Blood Pressure 114/82 09/22/2024 11:36 AM METER/RELAY TECHNICIAN Pulse 61 09/22/2024 11:36 AM METER/RELAY TECHNICIAN Temperature 36.5 C (97.7 F) 09/22/2024 11:36 AM METER/RELAY TECHNICIAN Respiratory Rate 18 09/22/2024 11:36 AM METER/RELAY TECHNICIAN Oxygen Saturation 99% 09/22/2024 11:36 AM METER/RELAY TECHNICIAN Inhaled Oxygen Concentration - - Weight 104.1 kg (229 lb 8 oz) 09/22/2024 11:36 A M METER/RELAY TECHNICIAN Height 157.5 cm (5' 2 ) 09/22/2024 11:36 AM METER/RELAY TECHNICIAN Body Mass Index 41.98 09/22/2024 11:36 AM METER/RELAY TECHNICIAN Plan of Treatment Not on file Procedures Procedure Name Priority Date/Time Associated Diagnosis Comments SURGICAL PATHOLOGY Routine 11/30/2024 2: 33 PM METER/RELAY TECHNICIAN Rash EGFR Routine 09/23/2024 7:24 AM METER/RELAY TECHNICIAN 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) DIFFERENTIAL AUTO Routine 09/23/2024 7:2 4 AM METER/RELAY TECHNICIAN 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) CBC WITH AUTO DIFFERENTIAL Routine 09/23/2024 7:24 AM METER/RELAY TECHNICIAN 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) COMPREHENSIVE METABOLIC PANEL Routine 09/23/2024 7:24 AM METER/RELAY TECHNICIAN 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) LIPID PANEL Routine 09/23/2024 7:24 AM METER/RELAY TECHNICIAN 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) HEMOGLOBIN A1C Routine 09/23/2024 7:24 AM METER/RELAY TECHNICIAN 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) HEPATITIS B SURFACE ANTIBODY (IMMUNE STATUS) Routine 09/23/2024 7:24 AM METER/RELAY TECHNICIAN Accident caused by hypodermic needle, subsequent encounter HIV 1/2 ANTIBODY PLUS P24 ANTIGEN Routine 09/23/2024 7:24 AM METER/RELAY TECHNICIAN Accident caused by hypodermic needle, subsequent encounter HEPATITIS C ANTIBODY Routine 09/23/2024 7:24 AM METER/RELAY TECHNICIAN Accident caused by hypodermic needle, subsequent encounter ALBUMIN CREATININE RATIO, URINE Routine 09/23/2024 7:20 AM METER/RELAY TECHNICIAN 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) from Last 3 Months Results * Surgical pathology (11/30/2024 2:33 PM METER/RELAY TECHNICIAN) Tissue (Skin, biopsy) 11/30/2024 2:33 PM METER/RELAY TECHNICIAN 11/30/2024 4:18 PM METER/RELAY TECHNICIAN Narrative PATHOLOGY [facility] - 12/05/2024 3:57 PM METER/RELAY TECHNICIAN EPIC results best viewed via link to PDF [facility] [place] [address] Note to Patients: This report may contain [...] Gender: F : 1995 (Age: 29) Address: [address] [place] [address] Hospital #: [id number] Taken:11/30/2024 Received:11/30/2024 Reported: 12/05/2024 Patient Type: [facility] SPECIMEN Service: UNKNOWN Location: Physician(s): Blu Nguyen [...] Electronically Reviewed and Signed Out By Regulo Martinez MD, PhD 12/05/2024 15:57:47 Microscopic Description and [...] Dermatopathology Center, Department of Pathology and Immunology, [facility], [address] [place] [address], [address] [address] CLIA # [id number] Sharonda Estevez M.D. History: The patient is [...] specimen is bisected. Labeled A1. Jar 0. els11/30/2024 17:58 PA(s): Pamela Solis By this signature, I attest that the above diagnosis is based upon my personal examination of the slides(and/or other material). Addenda/Procedures The performance characteristics of some immunohistochemical stains, fluorescence in-situ hybridization tests and immunophenotyping by flow cytometry cited in this report (if any) were determined by the Surgical Pathology and Flow Cytometry Departments at [facility] as part of an ongoing senior quality assurance analyst program and in compliance with federally mandated [...] Surgical Pathology and Flow Cytometry Departments of [facility]. It has not been cleared or approved by the U. S. Food and Drug Administration. IMAGES AND SCANNED DOCUMENTS, IF INCLUDED, ONLY VIEWABLE IN PDF VERSION OF REPORT Blu Hayes MD LAB PATHOLOGY OR DERABLES Final Result PATHOLOGY [facility] 3rd Floor [place], [place] [phone] * eGFR (09/23/2024 7:24 AM METER/RELAY TECHNICIAN) eGFR >90 >=60 mL/min/1. 73 m2 Comment: [...] Inclusion of Race in Diagnosing Kidney Disease, JASN 2020). The CKD-EPI equation should not be used for patients with unstable renal function and has not been validated in children and those over 70. Current interpretive data was last reviewed 2021. Blood 09/23/2024 7:24 AM METER/RELAY TECHNICIAN 09/23/2024 9:41 AM METER/RELAY TECHNICIAN us Antonio BAPTISTE LAB BLOOD ORDERABLES Final Resu lt [facility] [address] [facility] [place] [address] * Differential, auto (09/23/2024 7:24 AM METER/RELAY TECHNICIAN) Pathologist [facility] Neutrophil abs 5.4 1.5 - 6.5 K/cumm Imm gran abs 0.0 0.0 - 0.1 K/cumm [facility] Lymphocyte abs 2.2 0.8 - 3.3 K/cumm [facility] Monocyte abs 0.4 0.2 - 0.8 K/cumm [facility] Eosinophil abs 0.1 0.0 - 0.5 K/cumm [facility] Basophil abs 0.0 0.0 - 0.1 K/cumm [facility] Neutrophil pct 66.1 % [facility] Comment: Interpretive Data Percent cell count reference ranges are not reported, since discordance with absolute values may lead to misinterpretation of CBC data. Current Interpretive Data was last revised on 2018. Imm gran pct 0.5 % [facility] Comment: Interpretive Data Percent cell count reference ranges are not reported, since discordance with absolute values may lead to misinterpretation of CBC data. Current Interpretive Data was last revised on 2018. Lymphocyte pct 26.8 % [facility] Comment: Interpretive Data Percent cell count reference ranges are not reported, since discordance with absolute values may lead to misinterpretation of CBC data. Current Interpretive Data was last revised on 2018. Monocyte pct 5.3 % [facility] Comment: Interpretive Data Percent cell count reference ranges are not reported, since discordance with absolute values may lead to misinterpretation of CBC data. Current Interpretive Data was last revised on 2018. Eosinophil pct 0.9 % [facility] Comment: Interpretive Data Percent cell count reference ranges are not reported, since discordance with absolute values may lead to misinterpretation of CBC data. Current Interpretive Data was last revised on 2018. Basophil pct 0.4 % [facility] Comment: Interpretive Data Percent cell count reference ranges are not reported, since discordance with absolute values may lead to misinterpretation of CBC data. Current Interpretive Data was last revised on 2018. Blood 09/23/2024 7:24 AM METER/RELAY TECHNICIAN 09/23/2024 9:40 AM METER/RELAY TECHNICIAN Antonio BAPTISTE LAB BLOOD ORDERABLES Final Resu lt Performing Organization Address City/[facility] Co de Phone Number LULA [address] [address] * HIV 1/2 Antibody plus p24 Antigen Blood (09/23/2024 7:24 AM METER/RELAY TECHNICIAN) [facility] HIV 1/2 ab + p24 ag Nonreactive Nonreactive Comment:Nonreactive for HIV- 1 antigen and HIV-1/HIV-2 antibodies. No laboratory evidence of HIV infection. If acute HIV infection is suspected, consider testing for HIV-1 RNA. Current interpretive data was last revised on 22. Blood 09/23/2024 7:24 AM METER/RELAY TECHNICIAN 09/23/2024 9:41 AM METER/RELAY TECHNICIAN Antonio BAPTISTE LAB MICROBIOLOGY - GENERAL ORDE RABLES Final Result Performing Organization Address [facility] Co de Phone Number LULA [address] [place] [address] * (ABNORMAL) CBC with auto differential (09/23/2024 7:24 AM METER/RELAY TECHNICIAN) [facility] WBC 8.2 3.8 - 9.9 K/cumm Hgb 11.0(L) 11.9 - 15.5 g/dL [facility] Hct 35.1(L) 35.6 - 45.5 % [facility] Plt 532(H) 150 - 400 K/cumm [facility] MPV 8.8(L) 9.1 - 12.3 fL [facility] RBC 4.57 3.90 - 5.20 M/cumm [facility] MCV 76.8(L) 81.3 - 96.4 fL [facility] MCH 24.1(L) 27.1 - 33.3 pg [facility] MCHC 31.3(L) 32.3 - 35.7 g/dL [facility] RDW CV 15.7(H) 11.1 - 14.9 % [facility] RDW SD 43.6 35.7 - 48.1 fL [facility] NRBC abs 0.00 0.00 - 0.01 K/cumm [facility] Blood 09/23/2024 7:24 AM METER/RELAY TECHNICIAN 09/23/2024 9:40 AM METER/RELAY TECHNICIAN Antonio BAPTISTE LAB BLOOD ORDERABLES Final Resu lt Performing Organization Address [facility] Co de Phone Number [address] [place] [address] * Hepatitis C antibody Blood (09/23/2024 7:24 AM METER/RELAY TECHNICIAN) Hep C Ab Nonreactive Nonreactive Comment: Antibodies [...] was last revised on 2019. Blood 09/23/2024 7:2 4 AM METER/RELAY TECHNICIAN 09/23/2024 9:41 AM METER/RELAY TECHNICIAN Antonio BAPTISTE LAB MICROBIOLOGY - GENERAL ORDMartin [facility] Final Result Performing Organization Address [facility] de Phone Number [facility] [address] [facility] [place] [address] * Hepatitis B surface antibody (immune status) Blood (09/23/2024 7:24 AM METER/RELAY TECHNICIAN) HBsAb (immune status) Reactive Comment: Interpretive Data [...] mIUnits/m L LULA Blood 09/23/2024 7:24 AM METER/RELAY TECHNICIAN 09/23/2024 9:41 AM METER/RELAY TECHNICIAN Antonio BAPTISTE LAB MICROBIOLOGY - [facility] Final Result Performing Organization Address [facility] de Phone Number [address] [address] * (ABNORMAL) Hemoglobin A1c (09/23/2024 7:24 AM METER/RELAY TECHNICIAN) Hgb A1C 6.7(H) 4.0 - 5.6 % Estimated Average Glucose 146 mg/dL LULA Comment: The ADA recommends reporting an estimated Average Glucose (eAG) with all Hemoglobin A1c results using the equation derived from a study of 507 normal and diabetic adults. Minority populations were underrepresented and children were not included. (Diabetes Care 31:5013-4075, 2008). The eAG is not equivalent to a fasting glucose. Blood 09/23/2024 7:24 AM METER/RELAY TECHNICIAN 09/23/2024 9:40 AM METER/RELAY TECHNICIAN Antonio BAPTISTE LAB BLOOD ORDERABLES Final Resu lt Performing Organization Address [facility] de Phone Number [address] [address] * (ABNORMAL) Lipid panel (09/23/2024 7:24 AM METER/RELAY TECHNICIAN) Cholesterol 142 30 - 199 mg/dL Comment: [...] 2. NCEP Expert Panel. Circulation 2004;110:227 3. Boyd M et al. NELIA Cardiol. 2019February 01;5(5):540-548. doi: 10.1001/jamacardio.2020.0013 Current Interpretive Data was last revised on 2024. Non-HDL Cholesterol 109 mg/dL [facility] Comment: Interpretive Data Ages < or = [...] last revised on 2018. Chol/HDL ratio 4 [facility] Blood 09/23/2024 7:24 AM METER/RELAY TECHNICIAN 09/23/2024 9:41 AM METER/RELAY TECHNICIAN us Antonio BAPTISTE LAB BLOOD ORDERABLES Final Resu lt [facility] [address] [facility] Department [place] [address] * (ABNORMAL) Comprehensive metabolic panel (09/23/2024 7:24 AM METER/RELAY TECHNICIAN) Sodium 136 135 - 145 mmol/L Potassium, pl 3.9 3.3 - 4.9 mmol/L [facility] Chloride 103 97 - 110 mmol/L [facility] CO2 25 22 - 32 mmol/L [facility] Anion gap 8 2 - 15 mmol/L [facility] BUN 9 6 - 25 mg/dL [facility] Creatinine 0.58(L) 0.60 - 1.10 mg/dL [facility] Glucose 105 70 - 199 mg/dL [facility] Comment: Interpretive Data Fasting glucose >/= 126 [...] 2022. Calcium 8.6 8.5 - 10.3 mg/dL [facility] Bilirubin, total 0.2 0.1 - 1.2 mg/dL [facility] Protein, pl 6.6 6.5 - 8.5 g/dL [facility] Albumin 3.8 3.5 - 5.0 g/dL [facility] Alk phos 71 40 - 130 Units/L [facility] ALT 11 7 - 45 Units/L [facility] AST 15 10 - 45 Units/L [facility] Blood 09/23/2024 7:24 AM METER/RELAY TECHNICIAN 09/23/2024 9:41 AM METER/RELAY TECHNICIAN us Antonio BAPTISTE LAB BLOOD ORDERABLES Final Resu lt Performing Organization Address [facility] de Phone Number [place] [phone] [facility] [place] [address] * Albumin Creatinine Ratio, Urine (09/23/2024 7:20 AM METER/RELAY TECHNICIAN) Albumin Ur <12.0 mg/L Comment: Interpretive Data No reference range established. Current interpretive data was last revised 2019. Creatinine Ur 197.0 mg/dL [facility] Comment: Interpretive Data No reference range established. Current interpretive data was last revised 2019. Albumin Creatinine Ratio, Ur <6 1 - 29 mg/g [facility] Urine 09/23/2024 7:20 AM METER/RELAY TECHNICIAN 09/23/2024 9:37 AM METER/RELAY TECHNICIAN Antonio BAPTISTE LAB URINE ORDERABLES Final Resu lt Performing Organization Address [facility] Co de Phone Number [facility] [address] [facility] [place] [address] from Last 3 Months Insurance [facility] * Guarantor: [employer] Federal Account Type Relation to Patient Date of Phone Billing Address Third Republican Liability Other Care Teams Power House Engineer Relationship Specialty Start Date End Date Antonio Baldwin PA PCP - General Family Medicine 07/01/22
--- OUTSIDE RECORDS SUMMARY | 2024-12-06 07:42 | XMS_ITS | Clinical Summary ---
Author Organization [facility] Address [address] [place] [address] Care Team Providers Care Beveller Operator Name Role Phone MiloJoyce sarabia LANNY Primary Care Provider [phone] Allergies Active Allergy Reactions Criticality Noted Date Comments Sulfa Antibiotics Hives Medium 01/04/2019 Medications vitamin 27-1 MG Tab tablet Take 1 tablet by mouth daily. Active Immunizations Name Administration Dates Next Due Influenza Adult (Generic) 07/22/2016 Tdap (Generic) 05/03/2015 Social History Tobacco Use Types Packs/Day Years Used Date Smoking Tobacco: Never Smokeless Tobacco: Never Alcohol Use Standard Drinks/Week Comments Not Currently 0 (1 standard drink = 0.6 oz pur e alcohol) Humiliation, Afraid, Rape, and Kick questionnair e Answer Date Recorded Fear of Current or Ex-Partner No Emotionally Abused No 01/27/2020 Physically Abused No 01/27/2020 Sexually Abused No 01/27/2020 Comments No Sex and Gender Information Value Date Recorded Sex Assigned at Not on file Legal Sex Female 7:03 PM CDT Gender Identity Not on file Sexual Orientation Not on file Last Filed Vital Signs Vital Sign Reading Time Taken Comments Blood Pressure 111/63 01/27/2020 12:00 PM CDT Pulse 72 01/27/2020 12:00 PM CDT Temperature 36.8 C (98.3 F) 01/27/2020 11:30 AM CDT Respiratory Rate 18 01/27/2020 11:30 AM CDT Oxygen Saturation - - Inhaled Oxygen Concentration - - Weight 87.5 kg (193 lb) 09/01/2016 11:58 AM CIVIL ENGINEER Height 154.9 cm (5' 1 ) 09/01/2016 11:58 AM CIVIL ENGINEER Body Mass Index 36.47 09/01/2016 11:58 AM CIVIL ENGINEER Plan of Treatment Health Maintenance Due Date Last Done Comments Cervical Cancer Screening Pa p Smear (Age 30 to 64) Every 3 Years 1993 Annual Physical 01/04/1996 Hepatitis C 2011 Hepatitis B Vaccines (1 of 3 - 19+ 3-dose series) 01/04/2012 Cervical Cancer Screening Pa p with HPV Testing (Age 30 to 64) Every 5 Years 2023 Cervical Cancer Screening with HPV 2023 COVID-19 Vaccine ( - 2023-2 5 season) 2024 Influenza Adult (#1) 2024 07/22/2016 DTaP, Tdap and Td Vaccines ( 2 - Td or Tdap) 05/03/2025 05/03/2015 HPV Vaccines Aged Out No longer eligi ble based on patient's age to complete this topic Meningococcal B Vaccine Aged Out No l onger eligible based on patient's age to complete this topic Meningococcal Vaccine Aged Out No chano elen eligible based on patient's age to complete this topic Pneumococcal Vaccine: Pediat rics (0 to 5 Years) and At-Risk Patients (6 to 64 Years) Aged Out No longer eligi ble based on patient's age to complete this topic RSV Immunizations Under 20 Months Aged Out No longer eligible based on patient's age to complete this topic Insurance DIGGS Care Teams Beveller Operator Relationship Specialty Start Date End Date Joyce Pedraza NP [address] [place] [address] PCP - General NURSE PRACTITIONER 01/27/19
[2024-12-06 08:48] LABS: Beta HCG Quantitative 31.81 mIU/ML
== END 2024-12-06 07:36 | disposition home or self-care (01) ==
PROVIDERS: PCP Physician Assistant Medical; Visit Provider Obstetrics & Gynecology
DX: O09.299 Supervision of pregnancy with other poor reproductive or obstetric history, unspecified trimester (principal); Z3A.00 Weeks of gestation of pregnancy not specified
CPT/HCPCS: 36415; 84702

== ENCOUNTER 2024-12-13 07:41 | Outpatient (CLI) | payer OTHER, SELFPAY ==
--- OUTSIDE RECORDS SUMMARY | 2024-12-13 07:47 | XMS_ITS | Referral Summary ---
Author Organization [facility] Address [address] [place] [address] Care Team Providers Care Glass Cutter Name Role Phone Unavailable Primary Care Provider Unavailabl e Source Comments [facility],non-owned Affiliates and Associated Physician Practices is amultiple site organization consisting of ambulatory clinics and hospital sitesin [place], [place], [place] and [place]. This disclosure is being madepursuant to the Care Everywhere program and may not contain all information available regarding this patient. Last updated 18.[facility] [employer] Allergies No known active allergies Medications * Be aware that medications may not be up to date on this document. Alwaysverify current medications with the patient. Medication Sig Dispensed Refills Start Date End Date Status cetirizine (ZYRTEC) 10 MG tabletIndications:Aller gic rhinitis Take 1 Tab by mouth at bedtime. 30 3 01/14/2010 Active fluticasone propionate (FLUTICASONE PROPIONATE) 50 MCG/ACT nasal sprayIndications:Allerg ic rhinitis [place] 2 Sprays into each nostril daily. 1 [...]
--- OUTSIDE RECORDS SUMMARY | 2024-12-13 07:47 | XMS_ITS | Clinical Summary ---
Author Organization [facility] Address [address] [place] [address] Care Team Providers Care Account Solutions Analyst Name Role Phone Unavailable Primary Care Provider Unavailabl e Source Comments [facility],non-owned Affiliates and Associated Physician Practices is amultiple site organization consisting of ambulatory clinics and hospital sitesin [place], [place], [place] and [place]. This disclosure is being madepursuant to the Care Everywhere program and may not contain all informatio navailable regarding this patient. Last updated 18.[facility] [employer] Allergies No known active allergies Medications * Be aware that medications may not be up to date on this document. Alwaysverify current medications with the patient. Medication Sig Dispensed Refills Start Date End Date Status cetirizine (ZYRTEC) 10 MG tabletIndications:Aller gic rhinitis Take 1 Tab by mouth at bedtime. 30 3 01/14/2010 Active fluticasone propionate (FLUTICASONE PROPIONATE) 50 MCG/ACT nasal sprayIndications:Allerg ic rhinitis [place] 2 Sprays into each nostril daily. 1 [...] to complete this topic MENINGOCOCCAL (Group B) VACC INE SHARED DECISION-MAKING Aged Out No longer eligibl e based on patient's age to complete this topic MENINGOCOCCAL GROUPS A/C/Y/W VACCINE Aged Out No longer eligible b ased on patient's age to complete this topic PNEUMOCOCCAL VACCINE Aged Out No long er eligible based on patient's age to complete this topic
--- OUTSIDE RECORDS SUMMARY | 2024-12-13 07:47 | XMS_ITS | Encounter Summary ---
Author Organization [facility] Care Team Providers Care Medical Observer Name Role Phone Phillip Coker MD Primary Care Provider [phone] Antonio Baldwin Primary Care Provider [phone] Encounter Details Date Type Department Care Team (Latest Contact Info) Description 10/28/2018 Orders Only [facility]INCON[facility] ProviderPérez MD [address] [place] [id number] Social History Tobacco Use Types Packs/Day Years Used Date Smoking Tobacco: Never Assessed Comments Unknown Sex and Gender Information Value Date Recorded Sex Assigned at Not on file Legal Sex Female 11:27 PM HARDWOOD FLOOR SANDER Gender Identity Female 08/08/2021 9:31 AM CDT Sexual Orientation Straight 08/08/2021 9: 31 AM CDT documented as of this encounter Plan of Treatment Not on file documented as of this encounter Procedures Procedure Name Priority Date/Time Associated Diagnosis Comments CARDIOLOGY REPORT 10/28/2018 12: 00 AM HARDWOOD FLOOR SANDER documented in this encounter Results * CARDIOLOGY REPORT (10/28/2018 12:00 AM HARDWOOD FLOOR SANDER) Anatomical Region Laterality Modality Other Narrative 10/28/2018 12:00 AM HARDWOOD FLOOR SANDER Ordered by an unspecified provider. Historical Provider [facility] MARTHA HARDING Final Result documented in this encounter Visit Diagnoses Not on filedocumented in this encounter Additional Health Concerns Infection Onset Date Last Indicated Resolved Time COVID: Suspected 09/01/2021 09/01/2021 09/02/2021 1:03 AM [employer] FLOOR SANDER COVID: Suspected 10/01/2021 10/01/2021 10/02/2021 4:52 AM H[employer] FLOOR SANDER COVID19 10/01/2021 10/01/2021 10/15/2021 3:07 AM [employer] FLOOR SANDER COVID: Recovered Comment:Added based on recent COVID infection. 10/15/2021 10/20/2021 02/12/2022 3:05 AM C DT COVID: Suspected 12/11/2021 12/11/2021 12/12/2021 12:07 AM H[employer] FLOOR SANDER COVID: Suspected 06/21/2023 06/21/2023 06/21/2023 3:30 PM CDT COVID: Suspected 06/21/2023 06/21/2023 06/21/2023 6:32 PM CDT documented as of this encounter Care Teams Medical Observer Relationship Specialty Start Date End Date Phillip Coker MD PCP - General 12/30/18 06/30/22 Antonio Baldwin PA PCP - General Family Medicine 07/01/22 documented as of this encounter
--- OUTSIDE RECORDS SUMMARY | 2024-12-13 07:47 | XMS_ITS | Encounter Summary ---
Author Organization [facility] Address [address] [place] [address] Care Team Providers Care Club Car Attendant Name Role Phone Antonio Baldwin Primary Care Provider [phone] Reason for Visit * Reason Onset Date Comments Appointment Request 11/30/2024 Encounter Details Date Type Department Care Team (Late st Contact Info) Description 11/30/2024 Telephone [facility] Family Medicine at [address] [place] [phone] Antonio Baldwin PA [address] [place] [id number] Appointment Request Social History Tobacco Use [...] on file Legal Sex Female 11:27 PM TALENT ENGINEER Gender Identity Female 08/08/2021 9:31 AM CDT Sexual Orientation Straight 08/08/2021 9: 31 AM CDT documented as of this encounter Miscellaneous Notes * Telephone Encounter - Valerio Roque - 11/30/2024 5:00 PM CST I made patient aware NT ENGINEER * Telephone Encounter - Alee Mario RN - 11/30/2024 4:12 PM TALENT ENGINEER Her rn med surg needs to remove sutures NT ENGINEER * Telephone Encounter - Vaelrio Roque - 11/30/2024 4:06 PM CST Where can I put her? NT ENGINEER * Telephone Encounter - Carmen Elkins - 11/30/2024 4:01 PM CST Appointment Request What visit type does the patient need? sutured removed from her right arm What is the reason for the visit? sutured removed from her right arm What is the reason we were unable to schedule the appointment? Patient stated she was seen by her Wrecking Car Driver today on 11/30/24 and told to be seen by PCP office for suture removal. If applicable, were all members of the patient's PCP care team offered (e.g., nurse practioner(s), physician litigation assistant(s)) ? Additional Comments: Patient called to schedule an appointment, please advise. Does message need to be routed? NT ENGINEER documented in this encounter Plan of Treatment Not on file documented as of this encounter Visit Diagnoses Not on filedocumented in this encounter Care Teams Club Car Attendant Relationship Specialty Start Date End Date Antonio Baldwin PA PCP - General Family Medicine 07/01/22 documented as of this encounter
--- OUTSIDE RECORDS SUMMARY | 2024-12-13 07:47 | XMS_ITS | Clinical Summary ---
Author Organization [facility] [address] [facility] Address [address] [place] [address] Care Team Providers Care Electrical Unit Rebuilder Name Role Phone Antonio Baldwin Primary Care Provider [phone] Allergies Active Allergy Reactions Criticality Noted Date [...] 7 days 2 mL 10/24/19 25 Active triamcinolone (KENALOG) 0.1 % ointment Apply topically 2 (two) times a day Apply thin layer to rash on back twice daily 80 g 1 12/07/19 25 Active Hospital, Clinic, or Other Facility [...] 02/01/2023 Assessment & Plan (09/24/2024 9:53 PM VISITOR SERVICES REPRESENTATIVE): Chronic uncontrolled Intolerant to metformin Start trulicity [...] Work on low carb diet Refer to wellness health coach Order a1c in 3mo Dyspnea 12/23/2022 Left foot pain 12/23/2022 Overview (12/23/2022): COnt diclofenac Cont podiatry Intractable migraine with aura without status mi grainosus 10/07/2022 Assessment & Plan (09/24/2024 9:52 PM VISITOR SERVICES REPRESENTATIVE): Chronic stable and improving with quilipta. Continue [...] dosing Assessment & Plan (09/16/2023 4:00 PM VISITOR SERVICES REPRESENTATIVE): Chronic condition Start quilipta Assessment & Plan (10/07/2022 10:23 AM VISITOR SERVICES REPRESENTATIVE): Chronic uncontrolled Start quilipta Wrist sprain, right, [...] MRI Assessment & Plan (12/01/2021 12:34 PM VISITOR SERVICES REPRESENTATIVE): Chronic with worsening pain Refer to naresh lockwood and treat Snoring 06/11/2021 Daytime somnolence 06/11/2021 Parasomnia 06/11/2021 BMI 40.0-44.9, adult 06/11/2021 Assessment & Plan (12/01/2021 12:42 PM VISITOR SERVICES REPRESENTATIVE): Chronic condition not well controlled patient advised [...] 03/12/2021 Assessment & Plan (12/01/2021 12:42 PM VISITOR SERVICES REPRESENTATIVE): Chronic condition order labs for evaluation Eczema of both hands 02/17/2021 Assessment & Plan (02/01/2023 12:56 PM CDT): Chronic and not well controlled Refill triamcinolone. Assessment & Plan (10/07/2022 10:30 AM VISITOR SERVICES REPRESENTATIVE): Start triamcinolone tid prn hands Assessment & [...] 07/18/2020 Assessment & Plan (10/07/2022 10:31 AM VISITOR SERVICES REPRESENTATIVE): Refer to hematology Family history of hemoglobin [...] 07/26/2017 Assessment & Plan (10/07/2022 10:31 AM VISITOR SERVICES REPRESENTATIVE): Chronic Failed p.t. and xrays and nsaids [...] Encounters Date Type Department Care Team Description 12/06/2024 Orders Only [facility] Dermatology [address] [facility] [address] [place] [phone] Blu Hayes MD 12/04/2024 Orders Only [facility] Dermatology [address] [facility] [address] [place] [address] Blu Hayes MD Rash (Primary Dx) 12/04/2024 Telephone [facility] [address] [place] [address] 4th [address] [place] [address] Maya Granger Scheduling Appointments 11/30/2024 5:24 PM VISITOR SERVICES REPRESENTATIVE - 11/30/2024 11:59 PM VISITOR SERVICES REPRESENTATIVE Hospital Encounter [facility] [address] [place] [address] Discharge Disposition: Discharge to home or self care 11/30/2024 2:00 PM VISITOR SERVICES REPRESENTATIVE [facility] [address] [place] [address] 4th [address] [place] [address] Blu Hayes MD Rash 11/30/2024 Orders Only [facility] [address] [place] [address] Blu Hayes MD Rash 11/30/2024 Telephone [facility] Family Medicine at [address] [place] [phone] Antonio Baldwin PA Appointment Request 10/24/2024 Telephone [facility] Family Medicine at [address] [place] [address] Antonio Baldwin PA 09/29/2024 Telephone [facility] Family Medicine at [address] [place] [address] nAtonio Baldwin PA 09/25/2024 Telephone [facility] Family Medicine at [address] [place] [address] Antonio Baldwin PA Lab Results 09/23/2024 7:20 AM VISITOR SERVICES REPRESENTATIVE Lab [facility] [address] [place] [address] Accident caused by hypodermic needle, subsequent encounter; 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) 09/22/2024 10:30 AM VISITOR SERVICES REPRESENTATIVE Office Visit [facility] Family Medicine at [address] [place] [address] Antonio Baldwin PA Rash (Primary Dx); Accident caused by hypodermic needle, subsequent encounter; 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); Intractable migraine with aura without status migrainosus 09/16/2024 Patient Self-Triage [facility] Health[facility]/ Physicians [address] [place] [phone] Mychart, Generic Provider 09/14/2024 1:15 PM VISITOR SERVICES REPRESENTATIVE Telemedicine [address] [phone] Mali Bourne NP Upper respiratory tract infection, unspecified type (Primary Dx) 09/14/2024 Nurse Triage [facility] Family Medicine at [address] [place] [phone] Antonio Baldwin PA 09/14/2024 Patient Self-Triage [facility] [address] [place] [phone] Mychart, Generic Provider from Last 3 Months [...] on file Legal Sex Female 11:27 PM VISITOR SERVICES REPRESENTATIVE Gender Identity Female 08/08/2021 9:31 AM CDT Sexual Orientation Straight 08/08/2021 9: 31 AM CDT Obstetrics History Last Filed Vital Signs Vital Sign Reading Time Taken Comments Blood Pressure 114/82 09/22/2024 11:36 AM VISITOR SERVICES REPRESENTATIVE Pulse 61 09/22/2024 11:36 AM VISITOR SERVICES REPRESENTATIVE Temperature 36.5 C (97.7 F) 09/22/2024 11:36 AM VISITOR SERVICES REPRESENTATIVE Respiratory Rate 18 09/22/2024 11:36 AM VISITOR SERVICES REPRESENTATIVE Oxygen Saturation 99% 09/22/2024 11:36 AM VISITOR SERVICES REPRESENTATIVE Inhaled Oxygen Concentration - - Weight 104.1 kg (229 lb 8 oz) 09/22/2024 11:36 A M VISITOR SERVICES REPRESENTATIVE Height 157.5 cm (5' 2 ) 09/22/2024 11:36 AM VISITOR SERVICES REPRESENTATIVE Body Mass Index 41.98 09/22/2024 11:36 AM VISITOR SERVICES REPRESENTATIVE Plan of Treatment Health Maintenance Due Date Last Done Comments Cervical Cancer Screening 1993 Dilated Eye Exam 1993 Foot Exam 1993 Regular Well Visit/Exam 18-64 2011 Pneumococcal vaccine <65 (1 of 2 - PCV) 01/04/2012 Covid-19 Vaccine ( season) 2024 06/14/2021, 05/24/2021 Hemoglobin A1C 03/24/2025 09/23/2024, 07/2 02/2024, 12/17/2023, Additional history exists Depression Screening 09/22/2025 [...] SURGICAL PATHOLOGY Routine 11/30/2024 2: 33 PM VISITOR SERVICES REPRESENTATIVE Rash EGFR Routine 09/23/2024 7:24 AM VISITOR SERVICES REPRESENTATIVE 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) DIFFERENTIAL AUTO Routine 09/23/2024 7:2 4 AM VISITOR SERVICES REPRESENTATIVE 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) CBC WITH AUTO DIFFERENTIAL Routine 09/23/2024 7:24 AM VISITOR SERVICES REPRESENTATIVE 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) COMPREHENSIVE METABOLIC PANEL Routine 09/23/2024 7:24 AM VISITOR SERVICES REPRESENTATIVE 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) LIPID PANEL Routine 09/23/2024 7:24 AM VISITOR SERVICES REPRESENTATIVE 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) HEMOGLOBIN A1C Routine 09/23/2024 7:24 AM VISITOR SERVICES REPRESENTATIVE 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) HEPATITIS B SURFACE ANTIBODY (IMMUNE STATUS) Routine 09/23/2024 7:24 AM VISITOR SERVICES REPRESENTATIVE Accident caused by hypodermic needle, subsequent encounter HIV 1/2 ANTIBODY PLUS P24 ANTIGEN Routine 09/23/2024 7:24 AM VISITOR SERVICES REPRESENTATIVE Accident caused by hypodermic needle, subsequent encounter HEPATITIS C ANTIBODY Routine 09/23/2024 7:24 AM VISITOR SERVICES REPRESENTATIVE Accident caused by hypodermic needle, subsequent encounter ALBUMIN CREATININE RATIO, URINE Routine 09/23/2024 7:20 AM VISITOR SERVICES REPRESENTATIVE 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) from Last 3 Months Results * Surgical pathology (11/30/2024 2:33 PM VISITOR SERVICES REPRESENTATIVE) Tissue (Skin, biopsy) 11/30/2024 2:33 PM VISITOR SERVICES REPRESENTATIVE 11/30/2024 4:18 PM VISITOR SERVICES REPRESENTATIVE Narrative PATHOLOGY [facility] - 12/05/2024 3:57 PM VISITOR SERVICES REPRESENTATIVE EPIC results best viewed via link to PDF [facility] [place] [address] Note to Patients: This report may contain [...] Gender: F : 1995 (Age: 29) Address: [address] [place] [phone] Hospital #: [id number] Taken:11/30/2024 Received:11/30/2024 Reported: 12/05/2024 Patient Type: [facility] SPECIMEN Service: UNKNOWN Location: Physician(s): Blu Nguyen [...] Dermatopathology Center, Department of Pathology and Immunology, [facility], [address] [place] [address], [address] # [id number] Sharonda Estevez M.D. History: The patient is [...] specimen is bisected. Labeled A1. Jar 0. elsw/11/30/2024 17:58 PA(s): Pamela Solis By this signature, I attest that the above diagnosis is based upon my personal examination of the slides(and/or other material). Addenda/Procedures The performance characteristics of some immunohistochemical stains, fluorescence in-situ hybridization tests and immunophenotyping by flow cytometry cited in this report (if any) were determined by the Surgical Pathology and Flow Cytometry Departments at as part of an ongoing clinical quality assurance specialist program and in compliance with federally mandated [...] Surgical Pathology and Flow Cytometry Departments of . It has not been cleared or approved by the U. S. Food and Drug Administration. IMAGES AND SCANNED DOCUMENTS, IF INCLUDED, ONLY VIEWABLE IN PDF VERSION OF REPORT [facility] Pamela Hayes MD LAB PATHOLOGY OR DERABLES Final Result PATHOLOGY [facility] 3rd Floor [place], [place] [phone] * eGFR (09/23/2024 7:24 AM VISITOR SERVICES REPRESENTATIVE) eGFR >90 >=60 mL/min/1. 73 m2 Comment: [...] last reviewed 2021. Blood 09/23/2024 7:24 AM VISITOR SERVICES REPRESENTATIVE 09/23/2024 9:41 AM VISITOR SERVICES REPRESENTATIVE us Antonio BAPTISTE LAB BLOOD ORDERABLES Final Resu lt [address] [place] [address] * Differential, auto (09/23/2024 7:24 AM VISITOR SERVICES REPRESENTATIVE) Pathologist [facility] Neutrophil abs 5.4 1.5 - 6.5 K/cumm Imm gran abs 0.0 0.0 - 0.1 K/cumm [facility] Lymphocyte abs 2.2 0.8 - 3.3 K/cumm [facility] Monocyte abs 0.4 0.2 - 0.8 K/cumm [facility] Eosinophil abs 0.1 0.0 - 0.5 K/cumm [facility] Basophil abs 0.0 0.0 - 0.1 K/cumm [facility] Neutrophil pct 66.1 % [facility] Comment: Interpretive Data Percent cell count reference ranges are not reported, since discordance with absolute values may lead to misinterpretation of CBC data. Current Interpretive Data was last revised on 2018. Imm gran pct 0.5 % [facility] Comment: Interpretive Data Percent cell count reference ranges are not reported, since discordance with absolute values may lead to misinterpretation of CBC data. Current Interpretive Data was last revised on 2018. Lymphocyte pct 26.8 % [facility] Comment: Interpretive Data Percent cell count reference ranges are not reported, since discordance with absolute values may lead to misinterpretation of CBC data. Current Interpretive Data was last revised on 2018. Monocyte pct 5.3 % [facility] Comment: Interpretive Data Percent cell count reference ranges are not reported, since discordance with absolute values may lead to misinterpretation of CBC data. Current Interpretive Data was last revised on 2018. Eosinophil pct 0.9 % [facility] Comment: Interpretive Data Percent cell count reference ranges are not reported, since discordance with absolute values may lead to misinterpretation of CBC data. Current Interpretive Data was last revised on 2018. Basophil pct 0.4 % [facility] Comment: Interpretive Data Percent cell count reference ranges are not reported, since discordance with absolute values may lead to misinterpretation of CBC data. Current Interpretive Data was last revised on 2018. Blood 09/23/2024 7:24 AM VISITOR SERVICES REPRESENTATIVE 09/23/2024 9:40 AM VISITOR SERVICES REPRESENTATIVE Antonio BAPTISTE LAB BLOOD ORDERABLES Final Resu lt Performing Organization Address [facility] Co de Phone Number [address] [place] [address] * HIV 1/2 Antibody plus p24 Antigen Blood (09/23/2024 7:24 AM VISITOR SERVICES REPRESENTATIVE) Pathologist [facility] HIV 1/2 ab + p24 ag Nonreactive Nonreactive Comment:Nonreactive for HIV- 1 antigen and HIV-1/HIV-2 antibodies. No laboratory evidence of HIV infection. If acute HIV infection is suspected, consider testing for HIV-1 RNA. Current interpretive data was last revised on 22. Blood 09/23/2024 7:24 AM VISITOR SERVICES REPRESENTATIVE 09/23/2024 9:41 AM VISITOR SERVICES REPRESENTATIVE Antonio BAPTISTE LAB MICROBIOLOGY - GENERAL ORDE RABLES Final Result Performing Organization Address [facility] Co de Phone Number [address] [employer] [place] [address] * (ABNORMAL) CBC with auto differential (09/23/2024 7:24 AM VISITOR SERVICES REPRESENTATIVE) Pathologist [facility] WBC 8.2 3.8 - 9.9 K/cumm Hgb 11.0(L) 11.9 - 15.5 g/dL [facility] Hct 35.1(L) 35.6 - 45.5 % [facility] Plt 532(H) 150 - 400 K/cumm [facility] MPV 8.8(L) 9.1 - 12.3 fL [facility] RBC 4.57 3.90 - 5.20 M/cumm [facility] MCV 76.8(L) 81.3 - 96.4 fL [facility] MCH 24.1(L) 27.1 - 33.3 pg [facility] MCHC 31.3(L) 32.3 - 35.7 g/dL [facility] RDW CV 15.7(H) 11.1 - 14.9 % [facility] RDW SD 43.6 35.7 - 48.1 fL [facility] NRBC abs 0.00 0.00 - 0.01 K/cumm [facility] Blood 09/23/2024 7:24 AM VISITOR SERVICES REPRESENTATIVE 09/23/2024 9:40 AM VISITOR SERVICES REPRESENTATIVE us Antonio BAPTISTE LAB BLOOD ORDERABLES Final Resu lt [facility] [address] [facility] Department [place] [address] * Hepatitis C antibody Blood (09/23/2024 7:24 AM VISITOR SERVICES REPRESENTATIVE) Hep C Ab Nonreactive Nonreactive Comment: Antibodies [...] revised on 2019. Blood 09/23/2024 7:24 AM VISITOR SERVICES REPRESENTATIVE 09/23/2024 9:41 AM VISITOR SERVICES REPRESENTATIVE Antonio BAPTISTE LAB MICROBIOLOGY - GENERAL ÁLVARO PAULVIRAJ Final Result Performing Organization Address [facility] de Phone Number [address] [address] * Hepatitis B surface antibody (immune status) Blood (09/23/2024 7:24 AM VISITOR SERVICES REPRESENTATIVE) [facility] HBsAb (immune status) Reactive Comment: Interpretive Data [...] HBsAb (immune status) index 76.8 mIUnits/m L [facility] Blood 09/23/2024 7:24 AM VISITOR SERVICES REPRESENTATIVE 09/23/2024 9:41 AM VISITOR SERVICES REPRESENTATIVE Result [facility] Antonio BAPTISTE [facility] MICROBIOLOGY [facility] ÁLVARO PAULVIRAJ Final Result Performing Organization Address [facility] de Phone Number [address] [address] * (ABNORMAL) Hemoglobin A1c (09/23/2024 7:24 AM VISITOR SERVICES REPRESENTATIVE) [facility] Hgb A1C 6.7(H) 4.0 - 5.6 % Estimated Average Glucose 146 mg/dL [facility] Comment: The ADA recommends reporting an estimated Average Glucose (eAG) with all Hemoglobin A1c results using the equation derived from a study of 507 normal and diabetic adults. Minority populations were underrepresented and children were not included. (Diabetes Care 31:3673-8035, 2008). The eAG is not equivalent to a fasting glucose. Blood 09/23/2024 7:24 AM VISITOR SERVICES REPRESENTATIVE 09/23/2024 9:40 AM VISITOR SERVICES REPRESENTATIVE Antonio BAPTISTE LAB BLOOD ORDERABLES Final Resu lt [facility] [address] [facility] Department [place] [address] * (ABNORMAL) Lipid panel (09/23/2024 7:24 AM VISITOR SERVICES REPRESENTATIVE) Cholesterol 142 30 - 199 mg/dL Comment: [...] 2018. LDL, calculated 97 <=129 mg/dL [facility] Comment: Interpretive Data Ages [...] 3. Oliver Bernard et al. NELIA Cardiol. 2019February 01;5(5):540-548. doi: [...] revised on 2018. Chol/HDL ratio 4 [facility] Blood 09/23/2024 7:24 AM VISITOR SERVICES REPRESENTATIVE 09/23/2024 9:41 AM VISITOR SERVICES REPRESENTATIVE us Antonio BAPTISTE LAB BLOOD ORDERABLES Final Resu lt [facility] [address] [facility] Department [place] [address] * (ABNORMAL) Comprehensive metabolic panel (09/23/2024 7:24 AM VISITOR SERVICES REPRESENTATIVE) Pathologist [facility] Sodium 136 135 - 145 mmol/L Potassium, pl 3.9 3.3 - 4.9 mmol/L [facility] Chloride 103 97 - 110 mmol/L [facility] CO2 25 22 - 32 mmol/L [facility] Anion gap 8 2 - 15 mmol/L [facility] BUN 9 6 - 25 mg/dL [facility] Creatinine 0.58(L) 0.60 - 1.10 mg/dL [facility] Glucose 105 70 - 199 mg/dL [facility] Comment: Interpretive Data Fasting glucose >/= 126 [...] classification and Diagnosis of Diabetes Diabetes Care 2021; 46: S19-S40. Current interpretive data was last revised 2022. Calcium 8.6 8.5 - 10.3 mg/dL [facility] Bilirubin, total 0.2 0.1 - 1.2 mg/dL [facility] Protein, pl 6.6 6.5 - 8.5 g/dL [facility] Albumin 3.8 3.5 - 5.0 g/dL [facility] Alk phos 71 40 - 130 Units/L [facility] ALT 11 7 - 45 Units/L [facility] AST 15 10 - 45 Units/L [facility] Blood 09/23/2024 7:24 AM VISITOR SERVICES REPRESENTATIVE 09/23/2024 9:41 AM VISITOR SERVICES REPRESENTATIVE us Antonio BAPTISTE LAB BLOOD ORDERABLES Final Resu lt [facility] [address] [facility] [place] [address] * Albumin Creatinine Ratio, Urine (09/23/2024 7:20 AM VISITOR SERVICES REPRESENTATIVE) [facility] Albumin Ur <12.0 mg/L Comment: Interpretive Data No reference range established. Current interpretive data was last revised 2019. Creatinine Ur 197.0 mg/dL [facility] Comment: Interpretive Data No reference range established. Current interpretive data was last revised 2019. Albumin Creatinine Ratio, Ur <6 1 - 29 mg/g [facility] Urine 09/23/2024 7:20 AM VISITOR SERVICES REPRESENTATIVE 09/23/2024 9:37 AM VISITOR SERVICES REPRESENTATIVE us Antonio BAPTISTE LAB URINE ORDERABLES Final Resu lt [facility] [address] [facility] [place] [address] from Last 3 Months Insurance [facility] * Guarantor: [facility] [employer] Account Type Relation to Patient Date of Phone Billing Address Third Constitution Party Liability Other Care Teams Electrical Unit Rebuilder Relationship Specialty Start Date End Date Antonio Baldwin PA PCP - General Family Medicine 07/01/22
--- OUTSIDE RECORDS SUMMARY | 2024-12-13 07:47 | XMS_ITS | Referral Summary ---
Author Organization [facility] [facility] Address [address] [place] [address] Care Team Providers Care Assessment Manager Name Role Phone Antonio Baldwin Primary Care Provider [phone] Encounters Date Type Department Care Team Description 12/06/2024 Orders Only [facility] Dermatology [address] [place] [address] Outpatient Health [address] [place] [address] Blu Hayes MD 12/04/2024 Orders Only [facility] Dermatology [address] [place] [address] [address] [place] [address] Blu Hayes MD Rash (Primary Dx) 12/04/2024 Telephone [facility] [address] [place] [address] 4th Floor [address] [place] [phone] Maya Granger Scheduling Appointments 11/30/2024 Orders Only [address] [address] Blu Hayes MD Rash 11/30/2024 5:24 PM RAND TACKER - 11/30/2024 11:59 PM RAND TACKER Hospital Encounter [address] [address] Discharge Disposition: Discharge to home or self care 11/30/2024 Telephone [facility] Family Medicine at [place] [address] [facility] [address] [place] [address] Antonio Baldwin PA Appointment Request 11/30/2024 2:00 PM RAND TACKER Office [facility] 4th Floor [address] [place] [phone] Blu Hayes MD Rash 10/24/2024 Telephone [facility] Family Medicine at [address] [place] [address] Antonio Baldwin PA 09/29/2024 Telephone [facility] Family Medicine at [address] [place] [address] Antonio Baldwin PA 09/25/2024 Telephone [facility] Medicine at [address] [place] [address] Antonio Baldwin PA Lab Results 09/23/2024 7:20 AM RAND TACKER Lab [facility] Lab [address] [place] [address] Accident caused by hypodermic needle, subsequent encounter; 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) 09/22/2024 10:30 AM RAND TACKER Office Visit [facility] Medicine at [address] [place] [address] Antonio Baldwin PA Rash (Primary Dx); Accident caused by hypodermic needle, subsequent encounter; 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); Intractable migraine with aura without status migrainosus 09/16/2024 Patient Self-Triage [facility] [address] [place] [address] Mychart, Generic Provider 09/14/2024 Nurse Triage [facility] Family Medicine at [address] [place] [phone] Antonio Baldwin PA 09/14/2024 1:15 PM RAND TACKER Telemedicine [facility] Virtual Care [address] [place] [address] Mali Bourne NP Upper respiratory tract infection, unspecified type (Primary Dx) 09/14/2024 Patient Self-Triage [facility] [place] [phone] Mychart, Generic Provider from Last 3 Months [...] 02/01/2023 Assessment & Plan (09/24/2024 9:53 PM RAND TACKER): Chronic uncontrolled Intolerant to metformin Start trulicity [...] Work on low carb diet Refer to food service manager Order a1c in 3mo Dyspnea 12/23/2022 Left foot pain 12/23/2022 Overview (12/23/2022): COnt diclofenac Cont podiatry Intractable migraine with aura without status mi grainosus 10/07/2022 Assessment & Plan (09/24/2024 9:52 PM RAND TACKER): Chronic stable and improving with quilipta. Continue [...] dosing Assessment & Plan (09/16/2023 4:00 PM RAND TACKER): Chronic condition Start quilipta Assessment & Plan (10/07/2022 10:23 AM RAND TACKER): Chronic uncontrolled Start quilipta Wrist sprain, right, [...] MRI Assessment & Plan (12/01/2021 12:34 PM RAND TACKER): Chronic with worsening pain Refer to p.tMary eval and treat Snoring 06/11/2021 Daytime somnolence 06/11/2021 Parasomnia 06/11/2021 BMI 40.0-44.9, adult 06/11/2021 Assessment & Plan (12/01/2021 12:42 PM RAND TACKER): Chronic condition not well controlled patient advised [...] 03/12/2021 Assessment & Plan (12/01/2021 12:42 PM RAND TACKER): Chronic condition order labs for evaluation Eczema of both hands 02/17/2021 Assessment & Plan (02/01/2023 12:56 PM CDT): Chronic and not well controlled Refill triamcinolone. Assessment & Plan (10/07/2022 10:30 AM RAND TACKER): Start triamcinolone tid prn hands Assessment & [...] 07/18/2020 Assessment & Plan (10/07/2022 10:31 AM RAND TACKER): Refer to hematology Family history of hemoglobin [...] 07/26/2017 Assessment & Plan (10/07/2022 10:31 AM RAND TACKER): Chronic Failed p.t. and xrays and nsaids [...] on file Legal Sex Female 11:27 PM RAND TACKER Gender Identity Female 08/08/2021 9:31 AM CDT Sexual Orientation Straight 08/08/2021 9: 31 AM CDT Last Filed Vital Signs Vital Sign Reading Time Taken Comments Blood Pressure 114/82 09/22/2024 11:36 AM RAND TACKER Pulse 61 09/22/2024 11:36 AM RAND TACKER Temperature 36.5 C (97.7 F) 09/22/2024 11:36 AM RAND TACKER Respiratory Rate 18 09/22/2024 11:36 AM RAND TACKER Oxygen Saturation 99% 09/22/2024 11:36 AM RAND TACKER Inhaled Oxygen Concentration - - Weight 104.1 kg (229 lb 8 oz) 09/22/2024 11:36 A M RAND TACKER Height 157.5 cm (5' 2 ) 09/22/2024 11:36 AM RAND TACKER Body Mass Index 41.98 09/22/2024 11:36 AM RAND TACKER Plan of Treatment Not on file Procedures Procedure Name Priority Date/Time Associated Diagnosis Comments SURGICAL PATHOLOGY Routine 11/30/2024 2: 33 PM RAND TACKER Rash EGFR Routine 09/23/2024 7:24 AM RAND TACKER 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) DIFFERENTIAL AUTO Routine 09/23/2024 7:2 4 AM RAND TACKER 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) CBC WITH AUTO DIFFERENTIAL Routine 09/23/2024 7:24 AM RAND TACKER 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) COMPREHENSIVE METABOLIC PANEL Routine 09/23/2024 7:24 AM RAND TACKER 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) LIPID PANEL Routine 09/23/2024 7:24 AM RAND TACKER 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) HEMOGLOBIN A1C Routine 09/23/2024 7:24 AM RAND TACKER 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) HEPATITIS B SURFACE ANTIBODY (IMMUNE STATUS) Routine 09/23/2024 7:24 AM RAND TACKER Accident caused by hypodermic needle, subsequent encounter HIV 1/2 ANTIBODY PLUS P24 ANTIGEN Routine 09/23/2024 7:24 AM RAND TACKER Accident caused by hypodermic needle, subsequent encounter HEPATITIS C ANTIBODY Routine 09/23/2024 7:24 AM RAND TACKER Accident caused by hypodermic needle, subsequent encounter ALBUMIN CREATININE RATIO, URINE Routine 09/23/2024 7:20 AM RAND TACKER 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) from Last 3 Months Results * Surgical pathology (11/30/2024 2:33 PM RAND TACKER) Tissue (Skin, biopsy) 11/30/2024 2:33 PM RAND TACKER 11/30/2024 4:18 PM RAND TACKER Narrative PATHOLOGY [facility] - 12/05/2024 3:57 PM RAND TACKER EPIC results best viewed via link to PDF [facility] [place] [address] Note to Patients: This report may contain [...] Gender: F : 1995 (Age: 29) Address: [address] [place] [phone] Hospital #: [id number] Taken:11/30/2024 Received:11/30/2024 Reported: 12/05/2024 Patient Type: [facility] SPECIMEN Service: UNKNOWN Location: Physician(s): Blu [...] Dermatopathology Center, Department of Pathology and Immunology, [facility], [address] [place] [address], [address] [address] CLIA # [id number] Sharonda Estevez M.D. History: The patient is [...] specimen is bisected. Labeled A1. Jar 0. [facility]11/30/2024 17:58 PA(s): Pamela Solis By this signature, I attest that the above diagnosis is based upon my personal examination of the slides(and/or other material). Addenda/Procedures The performance characteristics of some immunohistochemical stains, fluorescence in-situ hybridization tests and immunophenotyping by flow cytometry cited in this report (if any) were determined by the Surgical Pathology and Flow Cytometry Departments at [facility] as part of an ongoing automotive quality manager program and in compliance with federally mandated [...] Surgical Pathology and Flow Cytometry Departments of [facility]. It has not been cleared or approved by the U. S. Food and Drug Administration. IMAGES AND SCANNED DOCUMENTS, IF INCLUDED, ONLY VIEWABLE IN PDF VERSION OF REPORT Blu Hayes MD LAB PATHOLOGY OR DERABLES Final Result PATHOLOGY [facility] 3rd Floor [place], [place] [phone] * eGFR (09/23/2024 7:24 AM RAND TACKER) eGFR >90 >=60 mL/min/1. 73 m2 Comment: [...] last reviewed 2021. Blood 09/23/2024 7:24 AM RAND TACKER 09/23/2024 9:41 AM RAND TACKER us Antonio BAPTISTE LAB BLOOD ORDERABLES Final Resu lt [facility] [address] [facility] Department [place] [address] * Differential, auto (09/23/2024 7:24 AM RAND TACKER) Neutrophil abs 5.4 1.5 - 6.5 K/cumm Imm gran abs 0.0 0.0 - 0.1 K/cumm [facility] Lymphocyte abs 2.2 0.8 - 3.3 K/cumm [facility] Monocyte abs 0.4 0.2 - 0.8 K/cumm [facility] Eosinophil abs 0.1 0.0 - 0.5 K/cumm [facility] Basophil abs 0.0 0.0 - 0.1 K/cumm [facility] Neutrophil pct 66.1 % [facility] Comment: Interpretive Data Percent cell count reference ranges are not reported, since discordance with absolute values may lead to misinterpretation of CBC data. Current Interpretive Data was last revised on 2018. Imm gran pct 0.5 % [facility] Comment: Interpretive Data Percent cell count reference ranges are not reported, since discordance with absolute values may lead to misinterpretation of CBC data. Current Interpretive Data was last revised on 2018. Lymphocyte pct 26.8 % [facility] Comment: Interpretive Data Percent cell count reference ranges are not reported, since discordance with absolute values may lead to misinterpretation of CBC data. Current Interpretive Data was last revised on 2018. Monocyte pct 5.3 % [facility] Comment: Interpretive Data Percent cell count reference ranges are not reported, since discordance with absolute values may lead to misinterpretation of CBC data. Current Interpretive Data was last revised on 2018. Eosinophil pct 0.9 % [facility] Comment: Interpretive Data Percent cell count reference ranges are not reported, since discordance with absolute values may lead to misinterpretation of CBC data. Current Interpretive Data was last revised on 2018. Basophil pct 0.4 % [facility] Comment: Interpretive Data Percent cell count reference ranges are not reported, since discordance with absolute values may lead to misinterpretation of CBC data. Current Interpretive Data was last revised on 2018. Blood 09/23/2024 7:24 AM RAND TACKER 09/23/2024 9:40 AM RAND TACKER us Antonio BAPTISTE LAB BLOOD ORDERABLES Final Resu lt Performing Organization Address [facility] Co de Phone Number [address] [address] * HIV 1/2 Antibody plus p24 Antigen Blood (09/23/2024 7:24 AM RAND TACKER) [facility] HIV 1/2 ab + p24 ag Nonreactive Nonreactive Comment:Nonreactive for HIV- 1 antigen and HIV-1/HIV-2 antibodies. No laboratory evidence of HIV infection. If acute HIV infection is suspected, consider testing for HIV-1 RNA. Current interpretive data was last revised on 22. Blood 09/23/2024 7:24 AM RAND TACKER 09/23/2024 9:41 AM RAND TACKER us Antonio BAPTISTE LAB MICROBIOLOGY - GENERAL ORDE RABLES Final Result Performing Organization Address [facility] de Phone Number [address] [address] * (ABNORMAL) CBC with auto differential (09/23/2024 7:24 AM RAND TACKER) [facility] WBC 8.2 3.8 - 9.9 K/cumm Hgb 11.0(L) 11.9 - 15.5 g/dL [facility] Hct 35.1(L) 35.6 - 45.5 % [facility] Plt 532(H) 150 - 400 K/cumm [facility] MPV 8.8(L) 9.1 - 12.3 fL [facility] RBC 4.57 3.90 - 5.20 M/cumm [facility] MCV 76.8(L) 81.3 - 96.4 fL [facility] MCH 24.1(L) 27.1 - 33.3 pg [facility] MCHC 31.3(L) 32.3 - 35.7 g/dL [facility] RDW CV 15.7(H) 11.1 - 14.9 % [facility] RDW SD 43.6 35.7 - 48.1 fL [facility] NRBC abs 0.00 0.00 - 0.01 K/cumm [facility] Blood 09/23/2024 7:24 AM RAND TACKER 09/23/2024 9:40 AM RAND TACKER us Antonio BAPTISTE LAB BLOOD ORDERABLES Final Resu lt Performing Organization Address [facility] Co de Phone Number ABIGAIL[address] [place] [address] * Hepatitis C antibody Blood (09/23/2024 7:24 AM RAND TACKER) Pathologist [facility] Hep C Ab Nonreactive Nonreactive Comment: Antibodies [...] revised on 2019. Blood 09/23/2024 7:24 AM RAND TACKER 09/23/2024 9:41 AM RAND TACKER Antonio BAPTISTE LAB MICROBIOLOGY - GENERAL ORDE RABLES Final Result Performing Organization Address [facility] Co de Phone Number [facility] [address] [facility] [place] [address] * Hepatitis B surface antibody (immune status) Blood (09/23/2024 7:24 AM RAND TACKER) HBsAb (immune status) Reactive Comment: Interpretive Data [...] mIUnits/m L [facility] Blood 09/23/2024 7:24 AM RAND TACKER 09/23/2024 9:41 AM RAND TACKER Antonio BAPTISTE LAB MICROBIOLOGY - GENERAL ORDE RABLES Final Result Performing Organization Address [facility] Co de Phone Number [address] [place] [address] * (ABNORMAL) Hemoglobin A1c (09/23/2024 7:24 AM RAND TACKER) Pathologist [facility] Hgb A1C 6.7(H) 4.0 - 5.6 % Estimated Average Glucose 146 mg/dL [facility] Comment: The ADA recommends reporting an estimated Average Glucose (eAG) with all Hemoglobin A1c results using the equation derived from a study of 507 normal and diabetic adults. Minority populations were underrepresented and children were not included. (Diabetes Care 31:6670-5414, 2008). The eAG is not equivalent to a fasting glucose. Blood 09/23/2024 7:24 AM RAND TACKER 09/23/2024 9:40 AM RAND TACKER Antonio BAPTISTE LAB BLOOD ORDERABLES Final Resu lt Performing Organization Address [facility] Co de Phone Number [address] [employer] [address] * (ABNORMAL) Lipid panel (09/23/2024 7:24 AM RAND TACKER) Pathologist [facility] Cholesterol 142 30 - 199 mg/dL Comment: [...] mg/dL High: >160 mg/dL Calculated using the Boyd LDL-C estimating equation. This equation was implemented [...] on 2024. Non-HDL Cholesterol 109 mg/dL [facility] Comment: Interpretive Data Ages < [...] last revised on 2018. Chol/HDL ratio 4 [facility] Blood 09/23/2024 7:24 AM RAND TACKER 09/23/2024 9:41 AM RAND TACKER us Antonio BAPTISTE LAB BLOOD ORDERABLES Final Resu lt [facility] [address] [facility] Department [place] [address] * (ABNORMAL) Comprehensive metabolic panel (09/23/2024 7:24 AM RAND TACKER) Pathologist [facility] Sodium 136 135 - 145 mmol/L Potassium, pl 3.9 3.3 - 4.9 mmol/L [facility] Chloride 103 97 - 110 mmol/L [facility] CO2 25 22 - 32 mmol/L [facility] Anion gap 8 2 - 15 mmol/L [facility] BUN 9 6 - 25 mg/dL [facility] Creatinine 0.58(L) 0.60 - 1.10 mg/dL [facility] Glucose 105 70 - 199 mg/dL [facility] Comment: Interpretive Data Fasting glucose >/= [...] 2022. Calcium 8.6 8.5 - 10.3 mg/dL [facility] Bilirubin, total 0.2 0.1 - 1.2 mg/dL [facility] Protein, pl 6.6 6.5 - 8.5 g/dL [facility] Albumin 3.8 3.5 - 5.0 g/dL [facility] Alk phos 71 40 - 130 Units/L [facility] ALT 11 7 - 45 Units/L [facility] AST 15 10 - 45 Units/L [facility] Blood 09/23/2024 7:24 AM RAND TACKER 09/23/2024 9:41 AM RAND TACKER us Antonio BAPTISTE LAB BLOOD ORDERABLES Final Resu lt Performing Organization Address [facility] Phone Number [facility] [address] [facility] Department of Laboratories [place], [place] [phone] * Albumin Creatinine Ratio, Urine (09/23/2024 7:20 AM RAND TACKER) Albumin Ur <12.0 mg/L Comment: Interpretive Data No reference range established. Current interpretive data was last revised 2019. Creatinine Ur 197.0 mg/dL [facility] Comment: Interpretive Data No reference range established. Current interpretive data was last revised 2019. Albumin Creatinine Ratio, Ur <6 1 - 29 mg/g [facility] Urine 09/23/2024 7:20 AM RAND TACKER 09/23/2024 9:37 AM RAND TACKER us Antonio BAPTISTE LAB URINE ORDERABLES Final Resu lt Performing Organization Address [facility] Co de Phone Number CERNER [facility] [address] [facility] [place] [address] from Last 3 Months Insurance [facility] * Guarantor: [facility] [employer] Account Type Relation to Patient Date of Phone Billing Address Third Libertarian Liability Other Care Teams Assessment Manager Relationship Specialty Start Date End Date Antonio Baldwin PA PCP - General Family Medicine 07/01/22
--- OUTSIDE RECORDS SUMMARY | 2024-12-13 07:47 | XMS_ITS | Patient Health Summary ---
Author Organization [facility] Address [address] [place] [address] Care Team Providers Care Asian Art Curator Name Role Phone Unavailable Primary Care Provider Unavailabl e Note from [facility],non-owned Affiliates and Associated Physician Practices is amultiple site organization consisting of ambulatory clinics and hospital sitesin [place] and [place]. This disclosure is being madepursuant to the Care Everywhere program and may not contain all information available regarding this patient. Last updated 18.[facility] [place] Allergies No known active allergies Medications * Be aware that medications may not be up to date on this document. Alwaysverify current medications with the patient. * cetirizine (ZYRTEC) 10 MG tablet(Started 01/14/2010) Take 1 Tab by mouth at bedtime. 3 refills left * fluticasone propionate (FLUTICASONE PROPIONATE) 50 MCG/ACT nasal spray(Started 01/14/2010) [place] 2 Sprays into each nostril daily. 3 [...]
--- OUTSIDE RECORDS SUMMARY | 2024-12-13 07:48 | XMS_ITS | Encounter Summary ---
Author Organization [facility] Healthcare Address [address] [place] [address] Care Team Providers Care Snorkelling Instructor Name Role Phone Phillip Coker MD Primary Care Provider [phone] Antonio Baldwin Primary Care Provider [phone] Reason for Visit * Reason Onset Date Comments No Show 01/15/2022 I called patient and she states that she will be in attendance tomorrow for her next scheduled visit. Encounter Details Date Type Department Care Team (Late st Contact Info) Description 01/15/2022 Documentation [facility] OP Physical Therapy [facility] [address] [address] Arlene Albert, PT No Show [...] on file Legal Sex Female 11:27 PM INSECTICIDE MAKER Gender Identity Female 08/08/2021 9:31 AM CDT [...] documented as of this encounter Care Teams Snorkelling Instructor Relationship Specialty Start Date End Date Phillip Coker MD PCP - General 12/30/18 06/30/22 Antonio Baldwin PA PCP - General Family Medicine 07/01/22 documented as of this encounter
--- OUTSIDE RECORDS SUMMARY | 2024-12-13 07:48 | XMS_ITS | Data Portability ---
Author Organization [place] - [facility] OFFICE Address [address] [place] [id number] Assessment Encounter Date Assessment Date Assessment LastModified by Organization Details LastModified Time 11/20/2020 11/20/2020 Discussed with patient findings, diagnosis, and prognosis. Discussed evaluation and treatment options including risks and benefits with patient, and patient expressed understanding. The following interventions were recommended: heart healthy low-fat, low-sodium diet, begin regular exercise,maintai n appropriate weight, continue current medications, and medical follow-up as noted. [email or web address] Not available 11/20/2020 11:12:34 03/12/2021 03/12/2021 Discussed with patient findings, diagnosis, and prognosis. Discussed evaluation and treatment options including risks and benefits with patient, and patient expressed understanding. The following interventions were recommended: heart healthy low-fat, low-sodium diet, begin regular exercise,maintai n appropriate weight, continue current medications, and medical follow-up as noted. Not available 03/12/2021 17:08:25 01/12/2023 01/12/2023 Patient Examined by RYAN Carl, Also interviewed / examined by Supervising physician. Assessment / plan discussed and implemented Encounter scribed by RYAN Carl. Documentation reviewed and approved by supervising physician roberto Not available 01/12/2023 11:29:22 05/01/2023 05/01/2023 Patient Examined by RYAN Carl, Also Documentation reviewed and approved by supervising physician roberto Not available 05/01/2023 10:45:59 Plan of Treatment Reminders Order Date Submit Date Provider Last Modified By Organization Details Last Modified Time Details Appointments None record ed. Lab None record ed. Referral None record ed. Procedures None record ed. Surgeries None record ed. Imaging None record ed. Medication Orders None record ed. Patient TargetsNo targets recorded. Patient Instructions Encounter Date Encounter Id Patient Instructions Last Modified By Organization Details Last Modified Time 11/20/2020 [id number] When You Want to Lose Weight: Care Instructions [email or web address] Not available 11/20/2020 11:19:54 leg and ankle edema: care instructions [email or web address] Not available 11/20/2020 11:19:54 03/12/2021 [id number] When You Want to Lose Weight: Care Instructions [email or web address] Not available 03/12/2021 17:16:33 leg and ankle edema: care instructions [email or web address] Not available 03/12/2021 17:16:33 high cholesterol : care instructions [email or web address] Not available 03/12/2021 17:16:33 01/12/2023 [id number] Exercise advised Low cholesterol diet advised Low sodium diet advised. [email or web address] Not available 01/12/2023 11:32:47 05/01/2023 [id number] Exercise advised Low cholesterol diet advised Low sodium diet advised. [email or web address] Not available 05/01/2023 10:47:10 Reason for Referral None Reported. Results Created Date Observation Date Name Description Value Unit Range Abnormal Flag Note LastModifiedBy Organization Detail LastModifiedTime 10/31/19 21 10/13/2020 elect rocar diogr am No observ ation record ed. [email or web address] Not Available 2020 12:10:27 11/14/19 21 10/13/2020 XR, chest , 1 view No observ ation record ed. [email or web address] Not Available 11/14 15:45:34 11/14/19 21 10/13/2020 elect rocar diogr am No observ ation record ed. [email or web address] Not Available 2020 14:35:10 12/03/19 21 11/14/2020 stres s echoc ardio gram No observ ation record ed. [email or web address] Not Available 2020 12:04:27 03/13/20 21 03/12/2021 elect rocar diogr am No observ ation record ed. [email or web address] Not Available 03/13 15:21:32 10/15/19 23 10/14/2022 santos [email or web address] am No observ ation record ed. [email or web address] Not Available 2022 12:38:28 Result Notes Documentation Provider Name and Address Organization Details Recorded Time Lipid Panel, Blood : 01/15/23:Na 137,K 3.9,Cl 102,CO2 25,Glu 127,BUN 10,Cr 0.50,AST 13,ALT 13,CK 66. 01/15/23:TC 163,TG 53,LDL 45,HDL 107. Vahe paiz, [place] - [facility] 01/15/2023 17:29:36 Problems Name Problem SNOMED Code Status Onset Date Resolution Date Notes Provider Name and Address Organization Details Recorded Time Hyperlipidemia 69664324 Active 2020 Chito Anabel paiz, [place] - [facility] 16:57:12 Acute maxillary sinusitis 27633914 Active 2016 Alessandra paiz, [place] - [facility] 7 14:50:19 Low back pain 380288071 Active 2016 Alessandra [place], [place] - [facility] 7 14:50:29 Chest pain 22202276 Active 2016 Alessandra [place], [place] - [facility] 7 14:50:41 Vitamin D deficiency 08604542 Active 2016 Alessandra [place], [place] - [facility] 7 14:51:18 Obstructive sleep apnea syndrome 52599188 Active 2016 Alessandra [place], [place] - [facility] 7 14:51:27 Snoring 66308240 Active 2016 Alessandra [place], [place] - [facility] 7 14:51:38 Fatigue 66711766 Active 2016 Louisa [place]iz, [place] - [facility] 7 15:55:42 Palpitations 17899082 Active 2016 Louis[place], [place] - [facility] 7 15:55:52 Headache 63404566 Active 2016 Louis[place] paiz, [place] - [facility] 7 15:55:59 Increased blood pressure 91030578 Active 2016 Chito paiz [facility] 17:20:00 Edema of lower extremity 001733286 Active 2016 Chito paiz [facility] 7 17:32:02 Obesity 505003666 Active 2020 Chito paiz [facility] 11:06:57 Problem Notes None recorded. Procedures Surgical History None recorded. Imaging Results Imaging Date Name Status LastModified by Organization Details LastModified Time 10/13/2020 electrocardiogram completed Informa tion not available 11/13/2020 12:10:27 10/13/2020 XR, chest, 1 view completed Informa tion not available 11/14/2020 15:45:34 10/13/2020 electrocardiogram completed Informa tion not available 11/19/2020 14:35:10 11/14/2020 stress echocardiogram completed [email or web address] Information not available 12/02/2020 12:04:27 03/12/2021 electrocardiogram completed Informa tion not available 03/13/2021 15:21:32 10/14/2022 electrocardiogram completed [email or web address] Informa tion not available 10/15/2022 12:38:28 Procedure Notes None recorded. Medical Equipment None Reported. Allergies Allergen ID Allergen Name Allergen Category Reaction Reaction Severity Criticality Documentation Date Start Date Code Code System Note Provider Name and Address Organization Details Recorded Time 5431 Substance with sulfonami de structure and antibacte rial mechanism of action (substanc e) medicatio n Not available Not available Not available 08/14/2017 [id number] SNOMED Vahe paiz [facility] 07:16:38 Medications Name Sig Start Date Stop Date Status Note LastModified by Organization Details LastModified Time mucus er 600mg tab TAKE 1 TABLET BY MOUTH EVERY 12 HOURS NEEDED FOR COUGH active Not Available Not Available No t Available amoxicilli n 500 mg capsule TAKE 1 CAPSULE BY MOUTH THREE TIMES DAILY FOR 10 DAYS active pt is no longer taking 01/12/23 SA Not Available Not Available Not Available prednisone 10 mg tablet 12/13 completed Not Available Not Available Not Available doxycyclin e hyclate 100 mg capsule TAKE 1 CAPSULE BY MOUTH TWICE DAILY FOR 10 DAYS active Not Available Not Available No t Available cefuroxime axetil 250 mg tablet 08/17 completed Not Available Not Available Not Available cetirizine 10 mg tablet TAKE 1 TABLET BY MOUTH ONCE DAILY NEEDED FOR ALLERGIE S active Not Available Not Available No t Available azithromyc in 250 mg tablet TAKE 2 TABLETS BY MOUTH ON DAY 1, AND THEN TAKE 1 TABLET BY MOUTH ONCE A DAY ON DAY 2 THROUGH DAY 5 active pt is no longer taking 01/12/23 SA Not Available Not Available Not Available fluconazol e 150 mg tablet TAKE 1 TABLET BY MOUTH NOW AND THEN TAKE 1 TABLET BY MOUTH IN 72 HOURS FOR A TOTAL OF 2 DOSES 10/15 completed Not Available Not Available Not Available ondansetro n HCl 4 mg tablet 12/13 completed Not Available Not Available Not Available clindamyci n HCl 150 mg capsule TAKE 1 CAPSULE BY MOUTH 4 TIMES DAILY FOR 7 DAYS active no longer take 10/14/22 mb Not Available Not Available Not Available penicillin V potassium 500 mg tablet TAKE 1 TABLET BY MOUTH EVERY 12 HOURS FOR 10 DAYS active Not Available Not Available No t Available topiramate 25 mg tablet TAKE 1 TABLET BY MOUTH IN THE MORNING FOR ONE WEEK, THEN TAKE 1 TAB TWICE DAILY FOR 1 WEEK, THEN TAKE 2 TABS IN THE MORNING AND ONE IN THE EVENING FOR 1 WEEK, THEN TAKE 2 TABS TWICE DAILY THEREAFT ER active Not Available Not Available No t Available meclizine 12.5 mg tablet 12/13 completed Not Available Not Available Not Available acetaminop hen 300 mg-codeine 30 mg tablet active Not Available Not Available Not Available tramadol 50 mg tablet Take 1 tablet 3 times a day by oral route. 01/27 completed NOT TAKING THIS MEDS;AL 8 Not Available Not Available Not Available triamcinol one acetonide 0.1 % topical cream APPLY CREAM EXTERNAL LY TO AFFECTED AREA ONCE DAILY TO TWICE DAILY NEEDED active no longer take 10/14/22 mb Not Available Not Available Not Available butalbital -acetamino phen-caffe ine 50 mg-325 mg-40 mg tablet TAKE 1 TABLET BY MOUTH EVERY 4 HOURS NEEDED FOR HEADACHE active Not Available Not Available No t Available famotidine 20 mg tablet 12/13 completed Not Available Not Available Not Available DOK 100 mg capsule TAKE 1 CAPSULE BY MOUTH EVERY 24 HOURS 10/14 completed Not Available Not Available Not Available benzonatat e 100 mg capsule TAKE 1 CAPSULE BY MOUTH THREE TIMES DAILY NEEDED FOR COUGH 03/12 completed Not Available Not Available Not Available cephalexin 500 mg capsule TAKE 1 CAPSULE BY MOUTH EVERY 12 HOURS FOR 7 DAYS 10/15 completed Not Available Not Available Not Available pantoprazo le 40 mg tablet,del ayed release 12/13 completed Not Available Not Available Not Available triamcinol one acetonide 0.1 % topical ointment APPLY OINTMENT TOPICALL Y THREE TIMES DAILY NEEDED FOR IRRITATI ON OR RASH active Not Available Not Available No t Available ibuprofen 400 mg tablet TAKE 1 TABLET BY MOUTH EVERY 8 HOURS NEEDED FOR PAIN active Not Available Not Available No t Available amoxicilli n 400 mg-potassi um clavulanat e 57 mg chewable tablet 08/17 completed Not Available Not Available Not Available diclofenac sodium 75 mg tablet,del ayed release TAKE 1 TABLET BY MOUTH TWICE DAILY active Not Available Not Available No t Available hydrocorti sone 2.5 % topical cream 08/17 completed Not Available Not Available Not Available montelukas t 10 mg tablet 08/17 completed Not Available Not Available Not Available ergocalcif stacy (vitamin D2) 1,250 mcg (50,000 unit) capsule TAKE 1 CAPSULE BY MOUTH ONCE A WEEK active Not Available Not Available No t Available levofloxac in 750 mg tablet TAKE 1 TABLET BY MOUTH ONCE DAILY active no longer take 10/14/22 mb Not Available Not Available Not Available methylpred nisolone 4 mg tablets in a dose pack TAKE BY MOUTH DIRECTED ON INSIDE OF PACKAGE 10/15 completed Not Available Not Available Not Available cefdinir 300 mg capsule 12/13 completed Not Available Not Available Not Available fluticason e propionate 50 mcg/actuat ion nasal spray,susp ension USE 2 SPRAY(S) IN EACH NOSTRIL ONCE DAILY active Not Available Not Available No t Available medroxypro gesterone 150 mg/mL intramuscu lar suspension INJECT 150 MG INTRAMUS CULARY EVERY 3 MONTHS active Not Available Not Available No t Available naproxen 500 mg tablet TAKE 1 TABLET BY MOUTH EVERY 12 HOURS NEEDED FOR PAIN 10/15 completed Not Available Not Available Not Available amoxicilli n 875 mg-potassi um clavulanat e 125 mg tablet TAKE 1 TABLET BY MOUTH TWICE DAILY FOR 10 DAYS active Not Available Not Available No t Available oxycodone 5 mg tablet TAKE 1 TABLET BY MOUTH EVERY 4 HOURS NEEDED FOR PAIN 10/15 completed Not Available Not Available Not Available azithromyc in 500 mg tablet 08/17 completed Not Available Not Available Not Available medroxypro gesterone 150 mg/mL intramuscu lar syringe INJECT 1 ML INTRAMUS CULARLY EVERY 3 MONTHS 10/14 completed Not Available Not Available Not Available nitrofuran toin monohydrat e/macrocry stals 100 mg capsule TAKE 1 CAPSULE BY MOUTH EVERY 12 HOURS WITH FOOD FOR 7 DAYS 10/15 completed Not Available Not Available Not Available Tums 1 tablet once a day 10/15 completed Not Available Not Available Not Available 1 tablet once day 10/15 completed Not Available Not Available Not Available FeroSul 325 mg (65 mg iron) tablet TAKE 1 TABLET BY MOUTH ONCE DAILY WITH BREAKFAS T active Not Available Not Available No t Available Multi Vitamin active Not Available Not Available Not Available Vitals Date Recorded Body height Body mass index (BMI) Body weight Heart rate Respiratory rate Oxygen saturation Oxygen saturation in Arterial blood by Pulse oximetry Body temperature Systolic blood pressure Diastolic blood pressure Provider Name and Address Organization Details Last Updated DateTime 1 165.1 cm 35.4 kg/m2 33639.1 7 g 81 /min 18 /min 99 % 99 % 97.1 [degF] 108 mm[Hg] 78 mm[Hg] Krystal Dutta [facility] 1 10:49:24 Date Recorded Body height Body mass index (BMI) Body weight Body temperature Heart rate Oxygen saturation Oxygen saturation in Arterial blood by Pulse oximetry Systolic blood pressure Diastolic blood pressure Provider Name and Address Organization Details Last Updated DateTime 1 165.1 cm 36.1 kg/m2 57411.5 4 g 97.4 [degF] 73 /min 100 % 100 % 116 mm[Hg] 78 mm[Hg] KARLIE CALLE [facility] 1 15:49:42 Date Recorded Body height Body mass index (BMI) Body weight Heart rate Oxygen saturation Oxygen saturation in Arterial blood by Pulse oximetry Systolic blood pressure Diastolic blood pressure Provider Name and Address Organization Details Last Updated DateTime 3 165.1 cm 38.3 kg/m2 999480. 25 g 76 /min 99 % 99 % 127 mm[Hg] 75 mm[Hg] Ramila Lanier [facility] 3 15:06:27 Date Recorded Body height Body mass index (BMI) Body weight Oxygen saturation Oxygen saturation in Arterial blood by Pulse oximetry Heart rate Systolic blood pressure Diastolic blood pressure Provider Name and Address Organization Details Last Updated DateTime 3 165.1 cm 38.4 kg/m2 695417. 04 g 97 % 97 % 71 /min 114 mm[Hg] 80 mm[Hg] BALJINDER MARTIN [facility] 3 11:13:33 Date Recorded Body height Body mass index (BMI) Body weight Heart rate Oxygen saturation Oxygen saturation in Arterial blood by Pulse oximetry Systolic blood pressure Diastolic blood pressure Provider Name and Address Organization Details Last Updated DateTime 3 165.1 cm 38.3 kg/m2 481902. 25 g 61 /min 99 % 99 % 104 mm[Hg] 76 mm[Hg] Isaura Handy [facility] 3 10:33:09 Social History Question Answer Notes LastModified by Organizat ion Details LastModified Time Tobacco Smoking Status Never Smoker Not Available [facility] 08/06/2020 03:30:42 What Is Your Level Of Alcohol Consumption? None [id number] Information not available 08/06/2020 What Is Your Level Of Caffeine Consumption? Occasional [id number] Information not available 08/06/2020 How Much Tobacco Do You Chew? None [id number] Information not available 08/06/2020 What Type Of Diet Are You Following? REGULAR [id number] Information not available 08/06/2020 Which Illicit Or Recreational Drugs Have You Used? No [id number] Information not available 08/06/2020 Do You Or Have You Ever Used E-cigarettes Or Vape? Never Used Electronic Cigarettes [id number] Information not available 08/06/2020 What Is Your Occupation? [employer] [id number] Information not available 08/06/2020 Live Alone Or With Others? With Others [email or web address] Information not available 08/17/2017 Marital Status Single [email or web address] Informatio n not available 08/17/2017 What Was The Date Of Your Most Recent Tobacco Screening? 01/27/2019 [id number] Information not available 08/06/2020 How Many Children Do You Have? 1 [id number] Information not available 08/06/2020 Do You Or Have You Ever Used Smokeless Tobacco? Never Used Smokeless Tobacco [id number] Information not available 08/06/2020 How Much Tobacco Do You Smoke? No [id number] Information not available 08/06/2020 General Stress Level Low [email or web address] Information not available 08/17/2017 How Many Years Have You Smoked Tobacco? 0 [id number] Information not available 08/06/2020 Sex: Unknown Functional Status Question Answer Note LastModified by Organization D etails LastModified Time What is your exercise level? None [id number] Information not available 08/06/2020 Mental Status None recorded. Family History Relationship Description Onset Age of this Age Resolved Age Notes LastModified by Organization Details LastModified Time Daughter Malignant neoplastic disease [email or web address] Not available 2016 07:14:37 Daughter Hypertensive disorder [email or web address] Not available 2016 07:14:45 Daughter Cerebrovascu lar accident [email or web address] Not available 08/2017 07:15:11 Daughter Sickle cell-hemoglo bin SS disease hmesto Not available 2016 07:16:28 Maternal Grandmother Heart disease [email or web address] Not available 2016 17:23:47 Mother Heart disease mother with no CAD; cardio myopat hy at age 43; Matern al grandm other' s sister with cardio myopat hy. Not available 08/17/2017 17:25:34 Mother Myocardial infarction 45 [email or web address] Not available 11/26 14:26:20 Mother Hypertensive disorder [email or web address] Not available 2016 16:01:24 Mother Heart failure [email or web address] Not available 2016 16:01:49 Maternal Uncle Diabetes mellitus [email or web address] Not available 2016 16:00:41 Maternal Uncle Hypertensive disorder [email or web address] Not available 2016 16:01:36 Maternal Uncle Cerebrovascu lar accident [email or web address] Not available 16:02:06 Paternal Grandmother Hypertensive disorder [email or web address] Not available 2016 16:01:29 Medical History Condition Response Sleep Apnea Y Hypertension Y Gynecological HistoryNo gynecological history recorded. Obstetrics History GPAL:G 0 P 0 0 0 0 Past Encounters Encounter ID Performer Location Encounter Start Date Encounter Closed Date Diagnosis/Indication Diagnosis SNOMED-CT Code Diagnosis ICD10 Code Diagnosis Note [id number] Chito Little [place] OFFICE [address] [place] [address] 08/17/2017 15:19:25 08/18/2017 09:47:10 Palpitations 78127848 R00.2 Infrequent but related to chest pain on occasion. 24 Hr Holter. Obtain TSH, BMP, Mg. Chest pain 50223616 R07. 9 Patient presents with {{chest* a rm back ja w}} pain {{typical of angina wit h atypical features*} } with exertional dyspnea which can be an anginal equivalent . Given the history, exam findings and {{high* in termediate low}} cardiac risk factors including family history with mother with hypertroph ic cardiomyop athy diagnosed at age 43, I {{feel* do not feel}} additional investigat ion is warranted. I have made arrangemen ts in the near future for {{an exercise stress echocardio gram to evaluate for any ischemia, structural heart disease, or exercise induced arrythmia* an exercise stress nuclear test an exercise stress nuclear test (stress echo not possible due to COPD or obesity) a n exercise stress nuclear test and an echocardio gram to evaluate for any ischemia or structural heart disease a pharmacolo gic stress nuclear test due to reduced functional capacity or conduction abnormalit y cardiac catheteriz ation an echocardio gram to evaluate left ventricula r function and any structural heart disease or valvular abnormalit y}}. The procedure was discussed with the patient, and risks, benefits, and alternativ e options were explained. {{ The patient was informed about heart catheteriz ation and interventi onal procedures and agrees to proceed.}} Appropriat e labwork {{has has not*}} been performed recently, therefore I {{have not have*} } made arrangemen ts for further testing: FLP, BMP, Mg, TSH. I have asked the patient to curtail exercise and activities until our investigat ion is complete. I have {{made no* made the following} } adjustment s to the present medical regimen. {{ Patient has been started on daily aspirin.}} {{ Patient has been given a prescripti on for sublingual nitroglyce rin.}} Obstructiv e sleep apnea syndrome 48314710 G47.33 Pt has CHRISTINA and not using CPAP. Discussed in length importance of using CPAP and patient will retry. Increased blood pressure 12775851 R03.0 Blood pressure is elevated at home per patient report. Normal BP in office today. Will keep close follow up, and consider medication change if blood pressure is still elevated. BP diary. Edema of l ower extremity 853988747 R60.0 Occasional bilateral pedal edema, absent at present. Low sodium diet, 2gm/day. [id number] Chito Rowell Office [address] [address] 11/26/2017 12:22:03 11/26/2017 14:36:25 Chest pain 67993128 R07.9 Resolved. Had SE 09/07/17 : Negative stress echo for ischemia. Has family history of premature AK. Needs to keep LDL less than 70-100, and HDL more than 40. Had LDL 116 09/07/17. Not using statin since may want another child. 20 lb. weight loss recommende d over the next 2 months. Increase exercise. {{ Patient has been given a prescripti on for sublingual nitroglyce rin.}} Palpitations 51296652 R0 0.2 Resolved. Holter Monitor 09/07/17 : Unremarkab le Holter. No PAC's. No PVC's. NSR and sinus tachycardi a. Symptoms of chest pain associated with normal sinus rhythm. Obtained TSH, BMP, Mg (all normal 09/2017). Obstructiv e sleep apnea syndrome 30319042 G47.33 Pt has CHRISTINA and not using CPAP. Discussed in length importance of using CPAP and patient will retry. Increased blood pressure 62087483 R03.0 Blood pressure is elevated at home per patient report on occasion. Normal BP in office today and last visit. Will keep close follow up, and consider medication change if blood pressure is still elevated. BP diary. Edema of l ower extremity 734897620 R60.0 Occasional bilateral pedal edema, absent at present. Low sodium diet, 2gm/day. Rigo Ibanez MD [place] OFFICE [address] [place] [address] 07/29/2018 11:11:29 07/29/2018 12:17:41 Chest pain 17852753 R07.9 Resolved. Had SE 09/07/17 : Negative stress echo for ischemia. Has family history of premature AK. Needs to keep LDL less than 70-100, and HDL more than 40. Had LDL 116 09/07/17. Not using statin since may want another child. 20 lb. weight loss recommende d over the next 2 months. Increase exercise. {{ Patient has been given a prescripti on for sublingual nitroglyce rin.}} Palpitations 20192482 R0 0.2 Resolved. Holter Monitor 09/07/17 : Unremarkab le Holter. No PAC's. No PVC's. NSR and sinus tachycardi a. Symptoms of chest pain associated with normal sinus rhythm. Obtained TSH, BMP, Mg (all normal 09/2017). Obstructiv e sleep apnea syndrome 95556520 G47.33 Pt has CHRISTINA and not using CPAP. Discussed in length importance of using CPAP and patient will retry. Will order home sleep study. Increased blood pressure 03479366 R03.0 Blood pressure is elevated at home per patient report on occasion. Normal BP in office today and last visit. Will keep close follow up, and consider medication change if blood pressure is still elevated. BP diary. Edema of l ower extremity 330254588 R60.0 Occasional bilateral pedal edema, absent at present. Low sodium diet, 2gm/day. [id number] Rigo Ibanez MD [place] OFFICE [address] [place] [address] 01/27/2019 10:13:07 01/27/2019 11:26:47 Chest pain 89789017 R07.9 Resolved.H ad SE 09/07/17 : Negative stress echo for ischemia{{ Patient has been given a prescripti on for sublingual nitroglyce rin.}} Palpitations 34822256 R0 0.2 Resolved. Holter Monitor 09/07/17 : Unremarkab le Holter. No PAC's. No PVC's. NSR and sinus tachycardi a. Symptoms of chest pain associated with normal sinus rhythm. Obtained TSH, BMP, Mg (all normal 09/2017). Obstructiv e sleep apnea syndrome 35245398 G47.33 Pt has CHRISTINA and not using CPAP. Discussed in length importance of using CPAP and patient will retry. Will order home sleep study. Increased blood pressure 17248400 R03.0 Well controlled . Edema of l ower extremity 326948772 R60.0 Occasional bilateral pedal edema, absent at present. Low sodium diet, 2gm/day. [id number] Allegra Ibrahim e Office [address] [facility] [address] 12/14/2019 15:26:13 12/14/2019 16:05:59 Chest pain 61255221 R07.9 Resolved.H ad SE 09/07/17 : Negative stress echo for ischemia{{ Patient has been given a prescripti on for sublingual nitroglyce rin.}} Palpitations 96802875 R0 0.2 Resolved. Holter Monitor 09/07/17 : Unremarkab le Holter. No PAC's. No PVC's. NSR and sinus tachycardi a. Symptoms of chest pain associated with normal sinus rhythm. Obtained TSH, BMP, Mg (all normal 09/2017). Obstructiv e sleep apnea syndrome 65716212 G47.33 Pt has CHRISTINA and not using CPAP. Discussed in length importance of using CPAP and patient will retry. Will order home sleep study. Increased blood pressure 29641437 R03.0 Well controlled . Edema of l ower extremity 444908505 R60.0 Occasional bilateral pedal edema, absent at present. Low sodium diet, 2gm/day. Systolic murmur 37093339 R01.1 Noted on exam today. Likely physiologi c with . Had echo last year with possible mitral prolapse but otherwise no significan t valvular disease.Sh e has mild dyspnea. Will consider repeat echo if symptoms worsen. WIll see pt in follow up before her scheduled delivery in May. Dyspnea on exertion 6084 5006 R06.09 [id number] Allegra Rowell Office [address] [place] [address] 04/03/2020 15:39:01 04/03/2020 16:18:51 Systolic murmur 58491040 R01.1 Noted on exam today. Likely physiologi c with . echo with possible mitral prolapse but otherwise no significan t valvular disease.Sh e has stable dyspnea associate with Chest pain 68546613 R07. 9 Resolved.H ad SE 09/07/17 : Negative stress echo for ischemia{{ Patient has been given a prescripti on for sublingual nitroglyce rin.}} Palpitations 49327577 R0 0.2 Resolved. Holter Monitor 09/07/17 : Unremarkab le Holter. No PAC's. No PVC's. NSR and sinus tachycardi a. Symptoms of chest pain associated with normal sinus rhythm. Obtained TSH, BMP, Mg (all normal 09/2017). Obstructiv e sleep apnea syndrome 54545550 G47.33 Pt has CHRISTINA and not using CPAP. Discussed in length importance of using CPAP and patient will retry. Will order home sleep study. Increased blood pressure 59977244 R03.0 Well controlled . Edema of l ower extremity 018204701 R60.0 Occasional bilateral pedal edema, absent at present. Low sodium diet, 2gm/day. Dyspnea on exertion 6084 5006 R06.09 Family his tory of Cardiomyopathy [id number] Z82.49 Echo last year with no hypertroph y. Repeat echo in 5 years. Consider genitic testing [address] Aicha Newman [place] [facility] [address] [place] [address] 10/15/2020 16:15:07 10/15/2020 17:38:11 Systolic murmur 82455824 R01.1 Likely physiologi c with . echo with possible mitral prolapse but otherwise no significan t valvular disease.Sh e has stable dyspnea associate with Chest pain 00544497 R07. 9 ER visit Obta in stress Echo Had SE 09/07/17 : Negative stress echo for ischemia{{ Patient has been given a prescripti on for sublingual nitroglyce rin.}} Palpitations 90437199 R0 0.2 Resolved. Holter Monitor 09/07/17 : Unremarkab le Holter. No PAC's. No PVC's. NSR and sinus tachycardi a. Symptoms of chest pain associated with normal sinus rhythm. Obtained TSH, BMP, Mg (all normal 09/2017). Family his tory of Cardiomyopathy 668958741 Z82.49 Echo last year with no hypertroph y. Repeat echo in 5 years. Consider genitic testing Obstructiv e sleep apnea syndrome 08949801 G47.33 Pt has CHRISTINA and not using CPAP. Discussed in length importance of using CPAP and patient will retry. Edema of l ower extremity 531842835 R60.0 Occasional bilateral pedal edema, absent at present. Low sodium diet, 2gm/day. Dyspnea on exertion 6084 5006 R06.09 [address] Chito Little [place] [facility] [address] [place] [address] 11/20/2020 10:42:05 11/20/2020 11:20:25 Systolic murmur 70760401 R01.1 Likely physiologi c with previously .Previousl y had echo with possible mitral prolapse but otherwise no significan t valvular disease. No MVP on echo in last 2 years since 10/2018. Chest pain 01034651 R07. 9 Atypical, resolved. [facility] ER visit 10/13/20 for upper central chest pressure. Had stress echo 11/14/20: Negative stress echo for ischemia, mild exercise impairment . Had ECHO done in 10/14/18 showed normal global systolic function , EF 60-65% , mild tricuspid regurgitat ion. Sinus bradycardi a. 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 Consider GI evaluation per PCP for possible GERD. {{ Patient has been given a prescripti on for sublingual nitroglyce rin.}} Palpitations 29159878 R0 0.2 Resolved. Holter Monitor 09/07/17 : Unremarkab le Holter. No PAC's. No PVC's. NSR and sinus tachycardi a. Symptoms of chest pain associated with normal sinus rhythm. Obtained TSH, BMP, Mg (all normal 09/2017). Family his tory of Cardiomyopathy 087750068 Z82.49 Echo recently with no hypertroph y. Repeat echo in 2 years. Consider genetic testing. Had stress echo 11/14/20: Negative stress echo for ischemia, mild exercise impairment . Had ECHO done in 10/14/18 showed normal global systolic function , EF 60-65% , mild tricuspid regurgitat ion. Sinus bradycardi a . Obtain FLP. Obstructiv e sleep apnea syndrome 34674687 G47.33 Pt has CHRISTINA and not using CPAP. Discussed in length importance of using CPAP and patient will retry pending receipt of new masks/stra ps. Follows with [facility]. Edema of l ower extremity 555576862 R60.0 Occasional bilateral pedal edema, absent at present. Low sodium diet, 2gm/day. Dyspnea on exertion 6084 5006 R06.09 Improved. Had stress echo 11/14/20: Negative stress echo for ischemia, mild exercise impairment . Had ECHO done in 10/14/18 showed normal global systolic function , EF 60-65% , mild tricuspid regurgitat ion. Sinus bradycardi a. Increase walking. Obesity 862015302 E66.9 20 lb. weight loss recommende d over the next 2 months. [address] Chito Anabel [place] [facility] [address] [place] [address] 03/12/2021 15:37:27 03/12/2021 17:17:03 Systolic murmur 84042244 R01.1 Likely physiologi c with previously .Previousl y had echo with possible mitral prolapse but otherwise no significan t valvular disease. No MVP on echo in last 2 years since 10/2018. Chest pain 16181768 R07. 9 Atypical, resolved. Had [facility] ER visit 10/13/20 for upper central chest pressure. Had stress echo 11/14/20: Negative stress echo for ischemia, mild exercise impairment . Had ECHO done in 10/14/18 showed normal global systolic function , EF 60-65% , mild tricuspid regurgitat ion. Sinus bradycardi a. 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 Consider GI evaluation per PCP for possible GERD. {{ Patient has been given a prescripti on for sublingual nitroglyce rin.}} Palpitations 44579793 R0 0.2 Resolved. Holter Monitor 09/07/17 : Unremarkab le Holter. No PAC's. No PVC's. NSR and sinus tachycardi a. Symptoms of chest pain associated with normal sinus rhythm. Obtained TSH, BMP, Mg (all normal 09/2017). Obtain labs with PCP in 1-2 weeks. Family his tory of Cardiomyopathy [id number] Z82.49 Echo recently with no hypertroph y. Repeat echo every 2 years. Consider genetic testing. Had stress echo 11/14/20: Negative stress echo for ischemia, mild exercise impairment . Had ECHO done in 10/14/18 showed normal global systolic function , EF 60-65% , mild tricuspid regurgitat ion. Sinus bradycardi a . Obtained 03/04/21 LIPID: TC 173, HDL 43, TG 61, LDL 115 Increase walking. Next echo in 6 months, reassess for LVH. Obstructiv e sleep apnea syndrome 56291723 G47.33 Pt has CHRISTINA and not using CPAP. Discussed in length importance of using CPAP and patient will retry pending receipt of new masks/stra ps. Follows with [facility] sleep clinic and needs f/u for new CPAP equipment. Edema of l ower extremity 297862381 R60.0 Improved. Occasional bilateral pedal edema, absent at present. Low sodium diet, 2gm/day. Needs CPAP for CHRISTINA per [facility] sleep clinic. Dyspnea on exertion 6084 5006 R06.09 Improved. Had stress echo 11/14/20: Negative stress echo for ischemia, mild exercise impairment . Had ECHO done in 10/14/18 showed normal global systolic function , EF 60-65% , mild tricuspid regurgitat ion. Sinus bradycardi a. Increase walking. Obesity 909920362 E66.9 20 lb. weight loss recommende d over the next 2 months. Hyperlipidemia 12640566 E78.5 Had 03/04/21 LIPID: TC 173, HDL 43, TG 61, LDL 115 Needs to keep LDL less than 70-100, and HDL more than 40. Increase walking. Reduce fatty red meat and egg yolks. Given age and child-bear ing potential, avoiding statin at present and will work with dietary therapy. Repeat FLP in 6 mo. [address] MD Patrice Calderón Office [address] [facility] [address] 10/14/2022 14:41:04 10/14/2022 15:34:14 Systolic murmur 52497963 R01.1 Likely physiologi c with previously .Previousl y had echo with possible mitral prolapse but otherwise no significan t valvular disease. No MVP on echo in last 2 years since 10/2018. Chest pain 24161974 R07. 9 Atypical, resolved. [facility] ER visit 10/13/20 for upper central chest pressure. Had stress echo 11/14/20: Negative stress echo for ischemia, mild exercise impairment . Had ECHO done in 10/14/18 showed normal global systolic function , EF 60-65% , mild tricuspid regurgitat ion. Sinus bradycardi a. 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 Consider GI evaluation per PCP for possible GERD. {{ Patient has been given a prescripti on for sublingual nitroglyce rin.}} Palpitations 03837675 R0 0.2 Resolved. Holter Monitor 09/07/17 : Unremarkab le Holter. No PAC's. No PVC's. NSR and sinus tachycardi a. Symptoms of chest pain associated with normal sinus rhythm. Obtained TSH, BMP, Mg (all normal 09/2017). Obtain labs with PCP in 1-2 weeks. Family his tory of Cardiomyopathy [id number] Z82.49 Echo recently with no hypertroph y. Repeat echo every 2 years. Consider genetic testing. Had stress echo 11/14/20: Negative stress echo for ischemia, mild exercise impairment . Had ECHO done in 10/14/18 showed normal global systolic function , EF 60-65% , mild tricuspid regurgitat ion. Sinus bradycardi a . Obtained 03/04/21 LIPID: TC 173, HDL 43, TG 61, LDL 115 Increase walking. Next echo in 6 months, reassess for LVH. Obstructiv e sleep apnea syndrome 40150588 G47.33 Pt has CHRISTINA and not using CPAP. Discussed in length importance of using CPAP and patient will retry pending receipt of new masks/stra ps. Follows with [facility] sleep clinic and needs f/u for new CPAP equipment. Edema of l ower extremity 995343808 R60.0 Improved. Occasional bilateral pedal edema, absent at present. Low sodium diet, 2gm/day. Needs CPAP for CHRISTINA per [facility]. Dyspnea on exertion 6084 5006 R06.09 Improved. Had stress echo 11/14/20: Negative stress echo for ischemia, mild exercise impairment . Had ECHO done in 10/14/18 showed normal global systolic function , EF 60-65% , mild tricuspid regurgitat ion. Sinus bradycardi a. Increase walking. Obesity 273602162 E66.9 20 lb. weight loss recommende d over the next 2 months. Hyperlipidemia 55814098 E78.5 Had 03/04/21 LIPID: TC 173, HDL 43, TG 61, LDL 115 Needs to keep LDL less than 70-100, and HDL more than 40. Increase walking. Reduce fatty red meat and egg yolks. Given age and child-bear ing potential, avoiding statin at present and will work with dietary therapy. Repeat FLP in 6 mo. [address] LAKESHIA DE LA O [place] [facility] [address] [place] [address] 01/12/2023 10:45:51 01/12/2023 11:53:26 Systolic murmur 39006132 R01.1 Likely physiologi c with previously .Previousl y had echo with possible mitral prolapse but otherwise no significan t valvular disease. No MVP on echo in last 2 years since 10/2018. Chest pain 98367967 R07. 9 Atypical, resolved. Had [facility] ER visit 10/13/20 for upper central chest pressure. Had stress echo 11/14/20: Negative stress echo for ischemia, mild exercise impairment . Had ECHO done in 10/14/18 showed normal global systolic function , EF 60-65% , mild tricuspid regurgitat ion. Sinus bradycardi a. 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 Consider GI evaluation per PCP for possible GERD. {{ Patient has been given a prescripti on for sublingual nitroglyce rin.}} Palpitations 27793250 R0 0.2 Resolved. Holter Monitor 09/07/17 : Unremarkab le Holter. No PAC's. No PVC's. NSR and sinus tachycardi a. Symptoms of chest pain associated with normal sinus rhythm. Obtained TSH, BMP, Mg (all normal 09/2017). Obtain labs with PCP in 1-2 weeks. Family his tory of Cardiomyopathy 704202995 Z82.49 Echo recently with no hypertroph y. Repeat echo every 2 years. Consider genetic testing. Had stress echo 11/14/20: Negative stress echo for ischemia, mild exercise impairment . Had ECHO done in 10/14/18 showed normal global systolic function , EF 60-65% , mild tricuspid regurgitat ion. Sinus bradycardi a . Obtained 03/04/21 LIPID: TC 173, HDL 43, TG 61, LDL 115 Increase walking. Next echo in 6 months, reassess for LVH. Obstructiv e sleep apnea syndrome 91284756 G47.33 Pt has CHRISTINA and not using CPAP. Discussed in length importance of using CPAP and patient will retry pending receipt of new masks/stra ps. Follows with [facility] sleep clinic and needs f/u for new CPAP equipment. Edema of l ower extremity 561667040 R60.0 Improved. Occasional bilateral pedal edema, absent at present. Low sodium diet, 2gm/day. Needs CPAP for CHRISTINA per [facility] sleep clinic. Dyspnea on exertion 6084 5006 R06.09 will repeat Echo Had stress echo 11/14/20: Negative stress echo for ischemia, mild exercise impairment . Had ECHO done in 10/14/18 showed normal global systolic function , EF 60-65% , mild tricuspid regurgitat ion. Sinus bradycardi a. Increase walking. Obesity 075747957 E66.9 20 lb. weight loss recommende d over the next 2 months. Hyperlipidemia 01286244 E78.5 Had 03/04/21 LIPID: TC 173, HDL 43, TG 61, LDL 115 Needs to keep LDL less than 70-100, and HDL more than 40. Increase walking. Reduce fatty red meat and egg yolks. Given age and child-bear ing potential, avoiding statin at present and will work with dietary therapy. Repeat FLP [address] [facility] [place] [facility] [address] [place] [address] 05/01/2023 09:57:33 05/01/2023 10:48:06 Systolic murmur 76412430 R01.1 Likely physiologi c with previously .Previousl y had echo with possible mitral prolapse but otherwise no significan t valvular disease. No MVP on echo in last 2 years since 10/2018. Chest pain 00485537 R07. 9 Atypical, resolved. Had [place] ER visit 10/13/20 for upper central chest pressure. Had stress echo 11/14/20: Negative stress echo for ischemia, mild exercise impairment . Had ECHO done in 10/14/18 showed normal global systolic function , EF 60-65% , mild tricuspid regurgitat ion. Sinus bradycardi a. 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 Consider GI evaluation per PCP for possible GERD. {{ Patient has been given a prescripti on for sublingual nitroglyce rin.}} Palpitations 55139162 R0 0.2 Resolved. Holter Monitor 09/07/17 : Unremarkab le Holter. No PAC's. No PVC's. NSR and sinus tachycardi a. Symptoms of chest pain associated with normal sinus rhythm. Obtained TSH, BMP, Mg (all normal 09/2017). Obtain labs with PCP in 1-2 weeks. Family his tory of Cardiomyopathy 513148582 Z82.49 Echo recently with no hypertroph y. Repeat echo every 2 years. Consider genetic testing. Had stress echo 11/14/20: Negative stress echo for ischemia, mild exercise impairment . Had ECHO done in 10/14/18 showed normal global systolic function , EF 60-65% , mild tricuspid regurgitat ion. Sinus bradycardi a . Obtained 03/04/21 LIPID: TC 173, HDL 43, TG 61, LDL 115 Increase walking. Next echo in 6 months, reassess for LVH. Obstructiv e sleep apnea syndrome 41759941 G47.33 Pt has CHRISTINA and not using CPAP. Discussed in length importance of using CPAP and patient will retry pending receipt of new masks/stra ps. Follows with [facility] sleep clinic and needs f/u for new CPAP equipment. Edema of l ower extremity 670361875 R60.0 Resolved Occasional bilateral pedal edema, absent at present. Low sodium diet, 2gm/day. Needs CPAP for CHRISTINA per [facility] sleep clinic. Dyspnea on exertion 6084 5006 R06.09 resolved Had stress echo 11/14/20: Negative stress echo for ischemia, mild exercise impairment . Had ECHO done in 10/14/18 showed normal global systolic function , EF 60-65% , mild tricuspid regurgitat ion. Sinus bradycardi a. Increase walking. Obesity 567691482 E66.9 20 lb. weight loss recommende d over the next 2 months. Hyperlipidemia 53066096 E78.5 Had 03/04/21 LIPID: TC 173, HDL 43, TG 61, LDL 115 Needs to keep LDL less than 70-100, and HDL more than 40. Increase walking. Reduce fatty red meat and egg yolks. Given age and child-bear ing potential, avoiding statin at present and will work with dietary therapy. Repeat FLP Health Concerns Section Related Observation LastModified by Organization Melanie anderson LastModified Time None Recorded Concern Status LastModified by Organization Details LastModified Time None Recorded Advance Directives Directive None Recorded Payers Encounter Date Sequence Insurance Name Policy Number Policy Snyder Covered Member ID Snyder Member ID Guarantor Name 11/20/2020 1 [facility] (MEDICAID HMO) [id number] Yenni Francois [id number] Yenni Francois 03/12/2021 1 [facility] (MEDICAID HMO) [id number] 0003 Yenni Francois [id number] Yenni Francois 10/14/2022 1 [facility] (MEDICAID HMO) [id number] 0003 Yenni Alessandro [id number] Yenni Francois 01/12/2023 1 [facility] (MEDICAID HMO) [id number] 0003 Yenni Francois [id number] Yenni Francois 05/01/2023 1 [facility] (MEDICAID HMO) [id number] 0003 Yenni Francois [id number] Yenni Francois Notes Date Note Type Note Provider Name and Address Organization Details Recorded Time 11/20/2020 text/html 11/20/20 CC: chest pain 25 year-old -[place] woman with h/o CHRISTINA (awaiting CPAP mask, [facility] Sleep [facility]), obesity, GERD, family history with mother with hypertrophic cardiomyopathy diagnosed at age 43 and mother with premature AK at 45, is here for follow. [facility] ER visit 10/13/20 for upper central chest pressure. She went to to the ER on 10/13/20. Reports that she felt a tug at her heart which turned to pressure for 30 min., after cleaning bathroom at work. Chest xray and troponins negative in the ER. She was discharged from ER. She was previously seen when she was 35 weeks . Her son was born in April 2020. 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 Only lasted for a few minutes then resolved. She has troubles with seasonal allergies. Previously the patient was seen after having reports of intermittent variably sharp central chest pain for several minutes accompanied by nausea at times for 1-2 months, unrelated to food and sometimes with activity. Not accompanied by dizziness, diaphoresis, or shortness of breath. No shortness of breath at rest. Reports resolution of dyspnea on exertion carrying laundry up steps. No known history of coronary artery disease, previous myocardial infarction, heart failure, valvular heart disease, arrhythmia or stroke reported. Denies chest pain, no recurrence. Denies shortness of breath at rest. Denies dyspnea on exertion. No orthopnea. No PNDs. Denies heart palpitations. Denies dizziness. Denies syncope or near syncope. No ankle or leg edema. No major bleeding events. No reported side effects from medications. Taking medications as prescribed with no missed doses. Denies snoring, daytime somnolence. Reports occasional headaches and fatigue. Pt has CHRISTINA and not using CPAP, awaiting new mask. She was in the ER in 12/28/17 because of Chest pain. EKG without acute changes. Had stress echo 11/14/20: Negative stress echo for ischemia, mild exercise impairment. Had SE 09/07/17 : Negative stress echo for ischemia. Had ECHO done in 10/14/18 showed normal global systolic function , EF 60-65% , mild tricuspid regurgitation. Sinus bradycardia . Had Holter Monitor 09/07/17 : Unremarkable Holter. No PAC's. No PVC's. NSR and sinus tachycardia. Symptoms of chest pain associated with normal sinus rhythm. Results from this visit, or from the past: CMP 10/24/2019 NA 133 K 3.7 CH 97 CO2 22 GL 105 BUN 6 CR 0.5 CA 9.5 AST 15 ALT 15 ALK PH 70CBC 10/24/2019 WBC 16.4 RBC 4.65 HGB 11.9 HCT 35.3 PLT 9888110/15/17 : MG 2.: Na 138 ,K 3.9 ,CL 101 ,CO2 29, GLU 98 ,BUN 15 , CR 0.5, AST 14 ,ALT 11, HB 11.9, HT 36.2 10/15/17 7 : MG 2.0 09/07/17: Na 144 ,K 4.2 ,CL 102 ,CO2 29 ,GLU 89 ,BUN 13 ,CR 0.5 ,TC 178 ,TG 74 ,HDL 47 ,LDL 116 ,AST 13 ,ALT 10, TSH 0.9 EKG 10/13/20:Nonspecific ST elevation in high lateral leads,borderline T wave abnormality,inferior leads,basline artifact AVR,AVL,V1,V2,Borderli ne EKG.04/03/2020 EKG : Possible right atrial enlargement Low voltage in chest leads EKG ; 12/14/2019 Possible Right atrial enlargement ,Low voltage in chest leads electrocardiogram 01-27-2019 sinus rhythm p, normal QRS low voltage in precordial leads ,ST-T normal conduction ECGwithout significant abnormalities 08/01/18 EKG: Sinus arrhythmia. P: normal. QRS: normal ST-T: normal Conclusion: normal variant of ECG.. 12/28/17 EKG: Normal sinus rhythm. Normal EKG. No previous ECGs available. EKG 11/26/2017:Right atrial enlargement EKG 08/17/17 : NSR, within normal limits ECHO 10/14/18: LV chamber size is normal. LV wall thickness is normal. There is normal global systolic function and contractility. The estimated left ventricle ejection fraction is 60-65%(normal). Normal left atrial pressure and diastolic function. The aortic valve is mildly calcified. There is mild thickening of mitral valve anterior leaflet. There is mild tricuspid regurgitation. Sinus bradycardia. SE 09/07/17 : Negative stress echo for ischemia. Holter Monitor 09/07/17 : Unremarkable Holter. No PAC's. No PVC's. NSR and sinus tachycardia. Symptoms of chest pain associated with normal sinus rhythm. 12/28/17 CHEST 2 VIEWS: No evidence of an acute cardiopulmonary abnormality. CXR 10/13/2020: No acute cardiopulmonary disease.10/24/2019 : Chest X-Ray : Patchy areas of airspace opacification in both lungs suspicious for multifocal pneumonia Radiographic follow up resolution is recommened [facility] pa[facility] - [facility] 11/20/2020 11:20:22 03/12/2021 text/html 03/12/21 CC: chest pain 26 year-old -[place] woman with h/o CHRISTINA (awaiting CPAP mask, [facility]), obesity, GERD, family history with mother with hypertrophic cardiomyopathy diagnosed at age 43 and mother with premature AK at 45, seasonal allergies, anemia, is here for follow. She was admitted to [place] [facility] 02/19/21-02/22/21 for pneumonia, COVID-19 negative, with resolution of cough but persistent bilateral lower back pain. She had follow-up with PCP. She has not been vaccinated for COVID-19. Had [place] ER visit 10/13/20 for upper central chest pressure. She went to to the ER on 10/13/20. Reports that she felt a tug at her heart which turned to pressure for 30 min., after cleaning bathroom at work. Chest xray and troponins negative in the ER. She was discharged from ER. She was previously seen when she was . Her son was born in April 2020. 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 Only lasted for a few minutes then resolved. She has troubles with seasonal allergies. Previously the patient was seen after having reports of intermittent variably sharp central chest pain for several minutes accompanied by nausea at times for 1-2 months, unrelated to food and sometimes with activity. Not accompanied by dizziness, diaphoresis, or shortness of breath. No shortness of breath at rest. Reports resolution of dyspnea on exertion carrying laundry up steps. No known history of coronary artery disease, previous myocardial infarction, heart failure, valvular heart disease, arrhythmia or stroke reported. No formal exercise but is active. Denies chest pain, no recurrence. Denies shortness of breath at rest. Denies dyspnea on exertion. No orthopnea. No PNDs. Denies heart palpitations. Denies dizziness. Denies syncope or near syncope. No ankle or leg edema. No major bleeding events. No reported side effects from medications. Taking medications as prescribed with no missed doses. Denies snoring, daytime somnolence. Reports occasional headaches and fatigue. Pt has CHRISTINA and not using CPAP, awaiting new mask with [facility] sleep clinic. She was in the ER in 12/28/17 because of Chest pain. EKG without acute changes. Had stress echo 11/14/20: Negative stress echo for ischemia, mild exercise impairment. Had SE 09/07/17 : Negative stress echo for ischemia. Had ECHO done in 10/14/18 showed normal global systolic function , EF 60-65% , mild tricuspid regurgitation. Sinus bradycardia . Had Holter Monitor 09/07/17 : Unremarkable Holter. No PAC's. No PVC's. NSR and sinus tachycardia. Symptoms of chest pain associated with normal sinus rhythm. Reports AM headaches, sense of poor sleep, and fatigue. Results from this visit, or from the past: 03/04/21 LIPID: TC 173, HDL 43, TG 61, LDL 115 10/13/20:WBC 9.7,RBC 4.63,HGB 11.5,HCT 35.4,PLT 453.10/15/20:Na 140,K 4.1,CL 106,CO2 27,GLU 91,BUN 14,Cr 0.6CMP 10/24/2019 NA 133 K 3.7 CH 97 CO2 22 GL 105 BUN 6 CR 0.5 CA 9.5 AST 15 ALT 15 ALK PH 70CBC 10/24/2019 WBC 16.4 RBC 4.65 HGB 11.9 HCT 35.3 PLT 4035410/15/17 : MG 2.: Na 138 ,K 3.9 ,CL 101 ,CO2 29, GLU 98 ,BUN 15 , CR 0.5, AST 14 ,ALT 11, HB 11.9, HT 36.2 10/15/17 7 : MG 2.0 09/07/17: Na 144 ,K 4.2 ,CL 102 ,CO2 29 ,GLU 89 ,BUN 13 ,CR 0.5 ,TC 178 ,TG 74 ,HDL 47 ,LDL 116 ,AST 13 ,ALT 10, TSH 0.9 EKG 10/13/20:Nonspecific ST elevation in high lateral leads,borderline T wave abnormality,inferior leads,basline artifact AVR,AVL,V1,V2,Borderli ne EKG.04/03/2020 EKG : Possible right atrial enlargement Low voltage in chest leads EKG ; 12/14/2019 Possible Right atrial enlargement ,Low voltage in chest leads electrocardiogram 01-27-2019 sinus rhythm p, normal QRS low voltage in precordial leads ,ST-T normal conduction ECGwithout significant abnormalities 08/01/18 EKG: Sinus arrhythmia. P: normal. QRS: normal ST-T: normal Conclusion: normal variant of ECG.. 12/28/17 EKG: Normal sinus rhythm. Normal EKG. No previous ECGs available. EKG 11/26/2017:Right atrial enlargement EKG 08/17/17 : NSR, within normal limits ECHO 10/14/18: LV chamber size is normal. LV wall thickness is normal. There is normal global systolic function and contractility. The estimated left ventricle ejection fraction is 60-65%(normal). Normal left atrial pressure and diastolic function. The aortic valve is mildly calcified. There is mild thickening of mitral valve anterior leaflet. There is mild tricuspid regurgitation. Sinus bradycardia. SE 09/07/17 : Negative stress echo for ischemia. Holter Monitor 09/07/17 : Unremarkable Holter. No PAC's. No PVC's. NSR and sinus tachycardia. Symptoms of chest pain associated with normal sinus rhythm. 11/14/20 STRESS ECHO: Negative stress echo. Mild exercise impairment. CXR 10/13/2020: No acute cardiopulmonary disease. 10/24/2019 : Chest X-Ray : Patchy areas of airspace opacification in both lungs suspicious for multifocal pneumonia Radiographic follow up resolution is recommened 12/28/17 CHEST 2 VIEWS: No evidence of an acute cardiopulmonary abnormality. CXR 10/13/2020: No acute cardiopulmonary disease.10/24/2019 : Chest X-Ray : Patchy areas of airspace opacification in both lungs suspicious for multifocal pneumonia Radiographic follow up resolution is recommened [facility] - [facility] 03/12/2021 17:17:01 10/14/2022 text/html 10/14/22CC : Car diac follow up, dyspnea on [id number] year-old -[place] woman with h/o CHRISTINA ( on CPAP mask, [facility]), obesity, GERD, family history with mother with hypertrophic cardiomyopathy diagnosed at age 43 and mother with premature AK at 45, seasonal allergies, anemia, is here for follow up. She was last seen in the clinic on 03/12/21, since then she is on Cpap. she gained 20 poundsShe denies ER visits and hospitalizations since she was last seen. Denies chest pain.Denies shortness of breath at rest. Has mild dyspnea on exertion.No orthopnea. No PNDs.Denies heart palpitations.Denies dizziness. Denies syncope or near syncope.No ankle or leg edema.No major bleeding events.No reported side effects from medications. Taking medications as prescribed with no missed doses.Denies snoring, daytime somnolence and AM headache.*Last LDL was 115 done on 03/03/21.Pt dose not takes any statins. Previously:She was admitted to [facility] 02/19/21-02/22/21 for pneumonia, COVID-19 negative, with resolution of cough but persistent bilateral lower back pain. She had follow-up with PCP. She has not been vaccinated for COVID-19. Had [place] ER visit 10/13/20 for upper central chest pressure. She went to to the ER on 10/13/20. Reports that she felt a tug at her heart which turned to pressure for 30 min., after cleaning bathroom at work. Chest xray and troponins negative in the ER. She was discharged from ER. 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 Only lasted for a few minutes then resolved. She has troubles with seasonal allergies. Previously the patient was seen after having reports of intermittent variably sharp central chest pain for several minutes accompanied by nausea at times for 1-2 months, unrelated to food and sometimes with activity. Not accompanied by dizziness, diaphoresis, or shortness of breath. No shortness of breath at rest. Reports resolution of dyspnea on exertion carrying laundry up steps. Pt has CHRISTINA and not using CPAP, awaiting new mask with [facility] sleep clinic. She was in the ER in 12/28/17 because of Chest pain. EKG without acute changes. *Had SE on 11/14/20: Negative stress echo for ischemia, mild exercise impairment. *Had ECHO done in 10/14/18 showed normal global systolic function , EF 60-65% , mild tricuspid regurgitation. Sinus bradycardia . *Had Holter Monitor 09/07/17 : Unremarkable Holter. No PAC's. No PVC's. NSR and sinus tachycardia. Symptoms of chest pain associated with normal sinus rhythm. Reports AM headaches, sense of poor sleep, and fatigue. Results from this visit, or from the past: 03/04/21 LIPID: TC 173, HDL 43, TG 61, LDL 115 10/13/20:WBC 9.7,RBC 4.63,HGB 11.5,HCT 35.4,PLT 453.10/15/20:Na 140,K 4.1,CL 106,CO2 27,GLU 91,BUN 14,Cr 0.6CMP 10/24/2019 NA 133 K 3.7 CH 97 CO2 22 GL 105 BUN 6 CR 0.5 CA 9.5 AST 15 ALT 15 ALK PH 70CBC 10/24/2019 WBC 16.4 RBC 4.65 HGB 11.9 HCT 35.3 PLT 0614010/15/17 : MG 2.: Na 138 ,K 3.9 ,CL 101 ,CO2 29, GLU 98 ,BUN 15 , CR 0.5, AST 14 ,ALT 11, HB 11.9, HT 36.2 10/15/17 7 : MG 2.0 09/07/17: Na 144 ,K 4.2 ,CL 102 ,CO2 29 ,GLU 89 ,BUN 13 ,CR 0.5 ,TC 178 ,TG 74 ,HDL 47 ,LDL 116 ,AST 13 ,ALT 10, TSH 0.9 EKG 10/13/20:Nonspecific ST elevation in high lateral leads,borderline T wave abnormality,inferior leads,basline artifact AVR,AVL,V1,V2,Borderli ne EKG.04/03/2020 EKG : Possible right atrial enlargement Low voltage in chest leads EKG ; 12/14/2019 Possible Right atrial enlargement ,Low voltage in chest leads electrocardiogram 01-27-2019 sinus rhythm p, normal QRS low voltage in precordial leads ,ST-T normal conduction ECGwithout significant abnormalities 08/01/18 EKG: Sinus arrhythmia. P: normal. QRS: normal ST-T: normal Conclusion: normal variant of ECG.. 12/28/17 EKG: Normal sinus rhythm. Normal EKG. No previous ECGs available. EKG 11/26/2017:Right atrial enlargement EKG 08/17/17 : NSR, within normal limits ECHO 10/14/18: LV chamber size is normal. LV wall thickness is normal. There is normal global systolic function and contractility. The estimated left ventricle ejection fraction is 60-65%(normal). Normal left atrial pressure and diastolic function. The aortic valve is mildly calcified. There is mild thickening of mitral valve anterior leaflet. There is mild tricuspid regurgitation. Sinus bradycardia. SE 09/07/17 : Negative stress echo for ischemia. Holter Monitor 09/07/17 : Unremarkable Holter. No PAC's. No PVC's. NSR and sinus tachycardia. Symptoms of chest pain associated with normal sinus rhythm. 11/14/20 STRESS ECHO: Negative stress echo. Mild exercise impairment. CXR 10/13/2020: No acute cardiopulmonary disease. 10/24/2019 : Chest X-Ray : Patchy areas of airspace opacification in both lungs suspicious for multifocal pneumonia Radiographic follow up resolution is recommened 12/28/17 CHEST 2 VIEWS: No evidence of an acute cardiopulmonary abnormality. CXR 10/13/2020: No acute cardiopulmonary disease.10/24/2019 : Chest X-Ray : Patchy areas of airspace opacification in both lungs suspicious for multifocal pneumonia Radiographic follow up resolution is recommened Rigo Ibanez MD [address] [place], [address], [facility] 10/14/2022 15:28:26 01/12/2023 text/html 01/12/23CC : Car diac follow up dyspnea on [id number] year-old -[place] woman with h/o CHRISTINA ( on CPAP mask, [facility]), obesity, GERD, family history with mother with hypertrophic cardiomyopathy diagnosed at age 43 and mother with premature AK at 45, seasonal allergies, anemia, is here for follow up. She was last seen in the clinic on 10/14/22, since then she complaining occasional headache and high BP readings with headaches. She denied chest pain or dyspnea on exertion. She reporting occasional anxiety attack that resolved by itself. Blood pressure is normal today. She denies ER visits and hospitalizations since she was last seen. Denies chest pain.Denies shortness of breath at rest. Has mild dyspnea on exertion.No orthopnea. No PNDs.Denies heart palpitations.Denies dizziness. Denies syncope or near syncope.No ankle or leg edema.No major bleeding events.No reported side effects from medications. Taking medications as prescribed with no missed doses.Denies snoring, daytime somnolence and AM headache.*Last LDL was 115 done on 03/03/21.Pt dose not takes any statins. Previously:She was admitted to [facility]. 02/19/21-02/22/21 for pneumonia, COVID-19 negative, with resolution of cough but persistent bilateral lower back pain. She had follow-up with PCP. She has not been vaccinated for COVID-19. Had [facility] ER visit 10/13/20 for upper central chest pressure. She went to to the ER on 10/13/20. Reports that she felt a tug at her heart which turned to pressure for 30 min., after cleaning bathroom at work. Chest xray and troponins negative in the ER. She was discharged from ER. Previously the patient was seen after having reports of intermittent variably sharp central chest pain for several minutes accompanied by nausea at times for 1-2 months, unrelated to food and sometimes with activity. Not accompanied by dizziness, diaphoresis, or shortness of breath. No shortness of breath at rest. Reports resolution of dyspnea on exertion carrying laundry up steps. Pt has CHRISTINA and not using CPAP, awaiting new mask with [facility]. She was in the ER in 12/28/17 because of Chest pain. EKG without acute changes. *Had SE on 11/14/20: Negative stress echo for ischemia, mild exercise impairment. *Had ECHO done in 10/14/18 showed normal global systolic function , EF 60-65% , mild tricuspid regurgitation. Sinus bradycardia . *Had Holter Monitor 09/07/17 : Unremarkable Holter. No PAC's. No PVC's. NSR and sinus tachycardia. Symptoms of chest pain associated with normal sinus rhythm. Reports AM headaches, sense of poor sleep, and fatigue. Results from this visit, or from the past: 03/04/21 LIPID: TC 173, HDL 43, TG 61, LDL 115 10/13/20:WBC 9.7,RBC 4.63,HGB 11.5,HCT 35.4,PLT 453.10/15/20:Na 140,K 4.1,CL 106,CO2 27,GLU 91,BUN 14,Cr 0.6CMP 10/24/2019 NA 133 K 3.7 CH 97 CO2 22 GL 105 BUN 6 CR 0.5 CA 9.5 AST 15 ALT 15 ALK PH 70CBC 10/24/2019 WBC 16.4 RBC 4.65 HGB 11.9 HCT 35.3 PLT 49045 : MG 2.: Na 138 ,K 3.9 ,CL 101 ,CO2 29, GLU 98 ,BUN 15 , CR 0.5, AST 14 ,ALT 11, HB 11.9, HT 36.2 10/15/17 7 : MG 2.0 09/07/17: Na 144 ,K 4.2 ,CL 102 ,CO2 29 ,GLU 89 ,BUN 13 ,CR 0.5 ,TC 178 ,TG 74 ,HDL 47 ,LDL 116 ,AST 13 ,ALT 10, TSH 0.9 EKG 10/13/20:Nonspecific ST elevation in high lateral leads,borderline T wave abnormality,inferior leads,basline artifact AVR,AVL,V1,V2,Borderli ne EKG.04/03/2020 EKG : Possible right atrial enlargement Low voltage in chest leads EKG ; 12/14/2019 Possible Right atrial enlargement ,Low voltage in chest leads electrocardiogram 01-27-2019 sinus rhythm p, normal QRS low voltage in precordial leads ,ST-T normal conduction ECGwithout significant abnormalities 08/01/18 EKG: Sinus arrhythmia. P: normal. QRS: normal ST-T: normal Conclusion: normal variant of ECG.. 12/28/17 EKG: Normal sinus rhythm. Normal EKG. No previous ECGs available. EKG 11/26/2017:Right atrial enlargement EKG 08/17/17 : NSR, within normal limits ECHO 10/14/18: LV chamber size is normal. LV wall thickness is normal. There is normal global systolic function and contractility. The estimated left ventricle ejection fraction is 60-65%(normal). Normal left atrial pressure and diastolic function. The aortic valve is mildly calcified. There is mild thickening of mitral valve anterior leaflet. There is mild tricuspid regurgitation. Sinus bradycardia. SE 09/07/17 : Negative stress echo for ischemia. Holter Monitor 09/07/17 : Unremarkable Holter. No PAC's. No PVC's. NSR and sinus tachycardia. Symptoms of chest pain associated with normal sinus rhythm. 11/14/20 STRESS ECHO: Negative stress echo. Mild exercise impairment. CXR 10/13/2020: No acute cardiopulmonary disease. 10/24/2019 : Chest X-Ray : Patchy areas of airspace opacification in both lungs suspicious for multifocal pneumonia Radiographic follow up resolution is recommened 12/28/17 CHEST 2 VIEWS: No evidence of an acute cardiopulmonary abnormality. CXR 10/13/2020: No acute cardiopulmonary disease.10/24/2019 : Chest X-Ray : Patchy areas of airspace opacification in both lungs suspicious for multifocal pneumonia Radiographic follow up resolution is recommened XENIA Valenzuela - [facility] 01/12/2023 11:32:53 05/01/2023 text/html 05/01/23CC : Car diac follow up dyspnea on [id number] year-old -[place] woman with h/o CHRISTINA ( on CPAP mask, [facility]), obesity, GERD, family history with mother with hypertrophic cardiomyopathy diagnosed at age 43 and mother with premature AK at 45, seasonal allergies, anemia, is here for 6 month follow up with labs results. She was last seen in the clinic on 01/12/23, since then she is doing well. She denied chest pain or dyspnea on exertion. *Last LDL was 45 done on 01/14/23.Pt dose not takes any statins. She denies ER visits and hospitalizations since she was last seen. Today reports: swelling of feet (couple mth)Denies chest pain.Denies shortness of breath at rest. Has mild dyspnea on exertion.No orthopnea. No PNDs.Denies heart palpitations.Denies dizziness. Denies syncope or near syncope.No ankle or leg edema.No major bleeding events.No reported side effects from medications. Taking medications as prescribed with no missed doses.Denies snoring, daytime somnolence and AM headache.*Last LDL was 45 done on 01/14/23.Pt dose not takes any statins. 01/15/23:Na 137,K 3.9,Cl 102,CO2 25,Glu 127,BUN 10,Cr 0.50,AST 13,ALT 13,CK 66.01/15/23:TC 163,TG 53,LDL 45,HDL 107. Previously:She complaining occasional headache and high BP readings with headaches.She reporting occasional anxiety attack that resolved by itself. She was admitted to [facility]. 02/19/21-02/22/21 for pneumonia, COVID-19 negative, with resolution of cough but persistent bilateral lower back pain. She had follow-up with PCP. She has not been vaccinated for COVID-19. Had [facility] ER visit 10/13/20 for upper central chest pressure. She went to to the ER on 10/13/20. Reports that she felt a tug at her heart which turned to pressure for 30 min., after cleaning bathroom at work. Chest xray and troponins negative in the ER. She was discharged from ER. Previously the patient was seen after having reports of intermittent variably sharp central chest pain for several minutes accompanied by nausea at times for 1-2 months, unrelated to food and sometimes with activity. Not accompanied by dizziness, diaphoresis, or shortness of breath. No shortness of breath at rest. Reports resolution of dyspnea on exertion carrying laundry up steps. Pt has CHRISTINA and not using CPAP, awaiting new mask with [facility] sleep clinic. She was in the ER in 12/28/17 because of Chest pain. EKG without acute changes. *Had SE on 11/14/20: Negative stress echo for ischemia, mild exercise impairment. *Had ECHO done in 10/14/18 showed normal global systolic function , EF 60-65% , mild tricuspid regurgitation. Sinus bradycardia . *Had Holter Monitor 09/07/17 : Unremarkable Holter. No PAC's. No PVC's. NSR and sinus tachycardia. Symptoms of chest pain associated with normal sinus rhythm. Reports AM headaches, sense of poor sleep, and fatigue. Results from this visit, or from the past: 03/04/21 LIPID: TC 173, HDL 43, TG 61, LDL 115 10/13/20:WBC 9.7,RBC 4.63,HGB 11.5,HCT 35.4,PLT 453.10/15/20:Na 140,K 4.1,CL 106,CO2 27,GLU 91,BUN 14,Cr 0.6CMP 10/24/2019 NA 133 K 3.7 CH 97 CO2 22 GL 105 BUN 6 CR 0.5 CA 9.5 AST 15 ALT 15 ALK PH 70CBC 10/24/2019 WBC 16.4 RBC 4.65 HGB 11.9 HCT 35.3 PLT 7082410/15/17 : MG 2.: Na 138 ,K 3.9 ,CL 101 ,CO2 29, GLU 98 ,BUN 15 , CR 0.5, AST 14 ,ALT 11, HB 11.9, HT 36.2 10/15/17 7 : MG 2.0 09/07/17: Na 144 ,K 4.2 ,CL 102 ,CO2 29 ,GLU 89 ,BUN 13 ,CR 0.5 ,TC 178 ,TG 74 ,HDL 47 ,LDL 116 ,AST 13 ,ALT 10, TSH 0.9 EKG 10/13/20:Nonspecific ST elevation in high lateral leads,borderline T wave abnormality,inferior leads,basline artifact AVR,AVL,V1,V2,Borderli ne EKG.04/03/2020 EKG : Possible right atrial enlargement Low voltage in chest leads EKG ; 12/14/2019 Possible Right atrial enlargement ,Low voltage in chest leads electrocardiogram 01-27-2019 sinus rhythm p, normal QRS low voltage in precordial leads ,ST-T normal conduction ECGwithout significant abnormalities 08/01/18 EKG: Sinus arrhythmia. P: normal. QRS: normal ST-T: normal Conclusion: normal variant of ECG.. 12/28/17 EKG: Normal sinus rhythm. Normal EKG. No previous ECGs available. EKG 11/26/2017:Right atrial enlargement EKG 08/17/17 : NSR, within normal limits ECHO 10/14/18: LV chamber size is normal. LV wall thickness is normal. There is normal global systolic function and contractility. The estimated left ventricle ejection fraction is 60-65%(normal). Normal left atrial pressure and diastolic function. The aortic valve is mildly calcified. There is mild thickening of mitral valve anterior leaflet. There is mild tricuspid regurgitation. Sinus bradycardia. SE 09/07/17 : Negative stress echo for ischemia. Holter Monitor 09/07/17 : Unremarkable Holter. No PAC's. No PVC's. NSR and sinus tachycardia. Symptoms of chest pain associated with normal sinus rhythm. 11/14/20 STRESS ECHO: Negative stress echo. Mild exercise impairment. CXR 10/13/2020: No acute cardiopulmonary disease. 10/24/2019 : Chest X-Ray : Patchy areas of airspace opacification in both lungs suspicious for multifocal pneumonia Radiographic follow up resolution is recommened 12/28/17 CHEST 2 VIEWS: No evidence of an acute cardiopulmonary abnormality. CXR 10/13/2020: No acute cardiopulmonary disease.10/24/2019 : Chest X-Ray : Patchy areas of airspace opacification in both lungs suspicious for multifocal pneumonia Radiographic follow up resolution is recommened XENIA Valenzuela - [facility] 05/01/2023 10:47:13 OBGyn Episode No OBEpisode recorded.
--- OUTSIDE RECORDS SUMMARY | 2024-12-13 07:48 | XMS_ITS | Encounter Summary ---
Author Organization [facility] Facility Care Team Providers Care Allocations Clerk Name Role Phone Phillip Coker MD Primary Care Provider [phone] Antonio Baldwin Primary Care Provider [phone] Encounter Details Date Type Department Care Team (Latest Contact Info) Description 07/20/2017 Orders Only [facility] Provider, MD Pérez [address] [place] [id number] Social History Tobacco Use Types Packs/Day Years Used Date Smoking Tobacco: Never Assessed Comments Unknown Sex and Gender Information Value Date Recorded Sex Assigned at Not on file Legal Sex Female 11:27 PM FUR NAILER Gender Identity Female 08/08/2021 9:31 AM CDT [...] COVID: Suspected 09/01/2021 09/01/2021 09/02/2021 1:03 AM FUR NAILER COVID: Suspected 10/01/2021 10/01/2021 10/02/2021 4:52 AM FUR NAILER COVID19 10/01/2021 10/01/2021 10/15/2021 3:07 AM FUR NAILER COVID: Recovered Comment:Added based on recent COVID infection. 10/15/2021 10/20/2021 02/12/2022 3:05 AM C DT COVID: Suspected 12/11/2021 12/11/2021 12/12/2021 12:07 AM FUR NAILER COVID: Suspected 06/21/2023 06/21/2023 06/21/2023 3:30 PM CDT COVID: Suspected 06/21/2023 06/21/2023 06/21/2023 6:32 PM CDT documented as of this encounter Care Teams Allocations Clerk Relationship Specialty Start Date End Date Phillip Coker MD PCP - General 12/30/18 06/30/22 Antonio Baldwin PA PCP - General Family Medicine 07/01/22 documented as of this encounter
--- OUTSIDE RECORDS SUMMARY | 2024-12-13 07:48 | XMS_ITS | Clinical Summary ---
Author Organization [facility] Address [address] [place] [address] Care Team Providers Care Vessel Liner Name Role Phone MiloJoyce sarabia LANNY Primary Care Provider [phone] Allergies Active Allergy Reactions Criticality Noted Date [...] 87.5 kg (193 lb) 09/01/2016 11:58 AM EQUIPMENT LEAD Height 154.9 cm (5' 1 ) 09/01/2016 11:58 AM EQUIPMENT LEAD Body Mass Index 36.47 09/01/2016 11:58 AM EQUIPMENT LEAD Plan of Treatment Health Maintenance Due Date [...] complete this topic Insurance DIGGS Care Teams Vessel Liner Relationship Specialty Start Date End Date Joyce Pedraza NP [address] [place] [address] PCP - General NURSE PRACTITIONER 01/27/19
== END 2024-12-13 07:42 | disposition home or self-care (01) ==
LOC: ANHLAB 07:43
PROVIDERS: PCP Physician Assistant Medical; Visit Provider Nurse Practitioner Obstetrics & Gynecology
DX: O09.299 Supervision of pregnancy with other poor reproductive or obstetric history, unspecified trimester (principal); Z3A.00 Weeks of gestation of pregnancy not specified
CPT/HCPCS: 36415; 84702

== ENCOUNTER 2024-12-14 09:14 | Emergency (ER) | payer OTHER, SELFPAY ==
[2024-12-14] VITALS (8 sets, daily range): BP systolic 116–133; BP diastolic 75–88; PULSE 77–96; RESP 16–18; TEMP 36.4; O2SAT 100
--- NOTE | ~2024-12-14 | US_ITS ---
EXAMINATION: US OB <=14 wk fetus w TV DATE: 12/14/2024 11:42 INDICATION: Low abdominal cramping. . TECHNIQUE: Real-time transabdominal and transvaginal pelvic ultrasound was performed. COMPARISON: None. FINDINGS: TRANSABDOMINAL ULTRASOUND: The uterus measures 9.2 x 4.6 x 5.3 cm. TRANSVAGINAL ULTRASOUND: There is a 5 mm cyst in the endometrial complex. This finding may be a gesta tional sac with estimated gestational age of 5 weeks and 2 days +/- 3 days. No yolk sac or pole is identified. The endometrial complex is thickened to 3.1 cm. The right ovary measures 2.1 x 2.1 x 2.1 cm. The left ovary measures 2.4 x 3.0 x 1.7 cm. There is no free fluid in the pelvis. IMPRESSION: 1. 5 mm cyst in the endometrial complex, which may be a gestational sac with estimated date of deliv jovanni of 08/14/2025. Spontaneous and ectopic are not excluded. Serial beta-hCGs are recommended. Reviewed, dictated and finalized at location B. IMPRESSION: 1. 5 mm cyst in the endometrial complex, which may be a gestational sac with e stimated date of delivery of 08/14/2025. Spontaneous and ectopic pregn joshua are not excluded. Serial beta-hCGs are recommended.
--- NOTE | ~2024-12-14 | US_ITS ---
EXAMINATION: US venous doppler [facility] DATE: 12/14/2024 11:03 INDICATION: Right lower limb pain. TECHNIQUE: Grayscale ultrasound images without and with compression and Doppler ultrasound images of the bilateral lower extremity veins were obtained. COMPARISON: None. FINDINGS: The visualized portions of right common femoral vein, profunda (deep) femoral vein, femoral vein, pop liteal vein, peroneal veins, posterior tibial veins, and greater saphenous vein outflow are patent. The visualized portions of left common femoral vein, profunda femoral vein, femoral vein, popliteal v ein, peroneal veins, posterior tibial veins, and greater saphenous vein outflow are patent. IMPRESSION: 1. No deep venous thrombosis. Reviewed, dictated and finalized at location B.
--- NOTE | ~2024-12-14 | XR_ITS ---
Left ankle Technique: AP, oblique, and lateral views were obtained. Clinical History: Edema Findings: No acute fracture or dislocation is seen. Osseous alignment is anatomic. Ankle mortise and other visualized joint spaces are preserved. There is mild diffuse soft tissue edema. Impression: No osseous or articular abnormality. Mild diffuse soft tissue edema. Reviewed, dictated and finalized at [facility]. Impression: No osseous or articular abnormality. Mild diffuse soft tissue edema.
--- OUTSIDE RECORDS SUMMARY | 2024-12-14 10:16 | XMS_ITS | Encounter Summary ---
Author Organization [facility] Healthcare Address [address] [place] [address] Care Team Providers Care Chinese Teacher Name Role Phone Antonio Baldwin Primary Care Provider [phone] Reason for Visit * Reason Onset Date Comments Appointment Request 11/30/2024 Encounter Details Date Type Department Care Team (Late st Contact Info) Description 11/30/2024 Telephone [facility] Medical Group Family Medicine at [address] [place] [phone] Antonio Baldwin PA [address] [place] [id number] Appointment Request Social History Tobacco Use [...] on file Legal Sex Female 11:27 PM SHAREPOINT ADMIN Gender Identity Female 08/08/2021 9:31 AM CDT Sexual Orientation Straight 08/08/2021 9: 31 AM CDT documented as of this encounter Miscellaneous Notes * Telephone Encounter - Valerio Roque - 11/30/2024 5:00 PM CST I made patient aware EPOINT ADMIN * Telephone Encounter - Alee Mario RN - 11/30/2024 4:12 PM SHAREPOINT ADMIN Her insurance follow up specialist needs to remove sutures EPOINT ADMIN * Telephone Encounter - Valerio Roque - 11/30/2024 4:06 PM CST Where can I put her? EPOINT ADMIN * Telephone Encounter - Carmen Elkins - 11/30/2024 4:01 PM CST Appointment Request What visit type does the patient need? sutured removed from her right arm What is the reason for the visit? sutured removed from her right arm What is the reason we were unable to schedule the appointment? Patient stated she was seen by her Vocational Rehabilitation Technician today on 11/30/24 and told to be seen by PCP office for suture removal. If applicable, were all members of the patient's PCP care team offered (e.g., nurse practioner(s), physician facility assistant(s)) ? Additional Comments: Patient called to schedule an appointment, please advise. Does message need to be routed? EPOINT ADMIN documented in this encounter Plan of Treatment Not on file documented as of this encounter Visit Diagnoses Not on filedocumented in this encounter Care Teams Chinese Teacher Relationship Specialty Start Date End Date Antonio Baldwin PA PCP - General Family Medicine 07/01/22 documented as of this encounter
--- OUTSIDE RECORDS SUMMARY | 2024-12-14 10:16 | XMS_ITS | Referral Summary ---
Author Organization [facility] [facility] Address [address] [place] [address] Care Team Providers Care Electron Microprobe Operator Name Role Phone Antonio Baldwin Primary Care Provider [phone] Encounters Date Type Department Care Team Description 12/06/2024 Orders Only [facility] Dermatology [address] [place] [address] Outpatient Health [address] [place] [address] Blu Hayes MD 12/04/2024 Orders Only [facility] Dermatology [address] [place] [address] [address] [place] [address] Blu Hayes MD Rash (Primary Dx) 12/04/2024 Telephone [facility] [address] [place] [address] 4th Floor [address] [place] [phone] Maya Granger Scheduling Appointments 11/30/2024 Orders Only [address] [address] Blu Hayes MD Rash 11/30/2024 5:24 PM FINE WIRE DRAWER - 11/30/2024 11:59 PM FINE WIRE DRAWER Hospital Encounter [address] [address] Discharge Disposition: Discharge to home or self care 11/30/2024 Telephone [facility] Medical [facility] Family Medicine at [place] [address] [facility] [address] [place] [address] Antonio Baldwin PA Appointment Request 11/30/2024 2:00 PM FINE WIRE DRAWER Office [facility] 4th Floor [address] [place] [phone] Blu Hayes MD Rash 10/24/2024 Telephone [facility] Family Medicine at [address] [place] [address] Antonio Baldwin PA 09/29/2024 Telephone [facility] Family Medicine at [address] [place] [address] Antonio Baldwin PA 09/25/2024 Telephone [facility] Medicine at [address] [place] [address] Antonio Baldwin PA Lab Results 09/23/2024 7:20 AM FINE WIRE DRAWER Lab [facility] [address] [place] [address] Accident caused by hypodermic needle, subsequent encounter; 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) 09/22/2024 10:30 AM FINE WIRE DRAWER Office Visit [facility] Medicine at [address] [place] [address] Antonio Baldwin PA Rash (Primary Dx); Accident caused by hypodermic needle, subsequent encounter; 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); Intractable migraine with aura without status migrainosus 09/16/2024 Patient Self-Triage [facility] HealthCare/ Physicians [address] [place] [address] Mychart, Generic Provider from Last 3 Months Allergies Active Allergy Reactions Criticality Noted Date Comments Sulfa (Sulfonamide Antibiotics) Hives Medium 12/2018 Medications fluticasone propionate (FLONASE) 50 mcg/actuation nasal sprayIndications:S ubacute sinusitis, unspecified location Administer 2 sprays into each nostril daily for 10 days 1 each 09/18/20 23 Active cetirizine (ZyrTEC) 10 mg tabletIndications: [...] 02/01/2023 Assessment & Plan (09/24/2024 9:53 PM FINE WIRE DRAWER): Chronic uncontrolled Intolerant to metformin Start trulicity [...] Work on low carb diet 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 Continue [...] dosing Assessment & Plan (09/16/2023 4:00 PM FINE WIRE DRAWER): Chronic condition Start quilipta Assessment & Plan (10/07/2022 10:23 AM FINE WIRE DRAWER): Chronic uncontrolled Start quilipta Wrist sprain, right, [...] MRI Assessment & Plan (12/01/2021 12:34 PM FINE WIRE DRAWER): Chronic with worsening pain Refer to p.t. eval and treat Snoring 06/11/2021 Daytime somnolence 06/11/2021 Parasomnia 06/11/2021 BMI 40.0-44.9, adult 06/11/2021 Assessment & Plan (12/01/2021 12:42 PM FINE WIRE DRAWER): Chronic condition not well controlled patient advised [...] 03/12/2021 Assessment & Plan (12/01/2021 12:42 PM FINE WIRE DRAWER): Chronic condition order labs for evaluation Eczema of both hands 02/17/2021 Assessment & Plan (02/01/2023 12:56 PM CDT): Chronic and not well controlled Refill triamcinolone. Assessment & Plan (10/07/2022 10:30 AM FINE WIRE DRAWER): Start triamcinolone tid prn hands Assessment & [...] 07/18/2020 Assessment & Plan (10/07/2022 10:31 AM FINE WIRE DRAWER): Refer to hematology Family history of hemoglobin [...] 07/26/2017 Assessment & Plan (10/07/2022 10:31 AM FINE WIRE DRAWER): Chronic Failed p.t. and xrays and nsaids [...] on file Legal Sex Female 11:27 PM FINE WIRE DRAWER Gender Identity Female 08/08/2021 9:31 AM CDT Sexual Orientation Straight 08/08/2021 9: 31 AM CDT Last Filed Vital Signs Vital Sign Reading Time Taken Comments Blood Pressure 114/82 09/22/2024 11:36 AM FINE WIRE DRAWER Pulse 61 09/22/2024 11:36 AM FINE WIRE DRAWER Temperature 36.5 C (97.7 F) 09/22/2024 11:36 AM FINE WIRE DRAWER Respiratory Rate 18 09/22/2024 11:36 AM FINE WIRE DRAWER Oxygen Saturation 99% 09/22/2024 11:36 AM FINE WIRE DRAWER Inhaled Oxygen Concentration - - Weight 104.1 kg (229 lb 8 oz) 09/22/2024 11:36 A M FINE WIRE DRAWER Height 157.5 cm (5' 2 ) 09/22/2024 11:36 AM FINE WIRE DRAWER Body Mass Index 41.98 09/22/2024 11:36 AM FINE WIRE DRAWER Plan of Treatment Not on file Procedures Procedure Name Priority Date/Time Associated Diagnosis Comments SURGICAL PATHOLOGY Routine 11/30/2024 2: 33 PM FINE WIRE DRAWER Rash EGFR Routine 09/23/2024 7:24 AM FINE WIRE DRAWER 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) DIFFERENTIAL AUTO Routine 09/23/2024 7:2 4 AM FINE WIRE DRAWER 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) CBC WITH AUTO DIFFERENTIAL Routine 09/23/2024 7:24 AM FINE WIRE DRAWER 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) COMPREHENSIVE METABOLIC PANEL Routine 09/23/2024 7:24 AM FINE WIRE DRAWER 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) LIPID PANEL Routine 09/23/2024 7:24 AM FINE WIRE DRAWER 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) HEMOGLOBIN A1C Routine 09/23/2024 7:24 AM FINE WIRE DRAWER 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) HEPATITIS B SURFACE ANTIBODY (IMMUNE STATUS) Routine 09/23/2024 7:24 AM FINE WIRE DRAWER Accident caused by hypodermic needle, subsequent encounter HIV 1/2 ANTIBODY PLUS P24 ANTIGEN Routine 09/23/2024 7:24 AM FINE WIRE DRAWER Accident caused by hypodermic needle, subsequent encounter HEPATITIS C ANTIBODY Routine 09/23/2024 7:24 AM FINE WIRE DRAWER Accident caused by hypodermic needle, subsequent encounter ALBUMIN CREATININE RATIO, URINE Routine 09/23/2024 7:20 AM FINE WIRE DRAWER 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) from Last 3 Months Results * Surgical pathology (11/30/2024 2:33 PM FINE WIRE DRAWER) Tissue (Skin, biopsy) 11/30/2024 2:33 PM FINE WIRE DRAWER 11/30/2024 4:18 PM FINE WIRE DRAWER Narrative PATHOLOGY [facility] - 12/05/2024 3:57 PM FINE WIRE DRAWER EPIC results best viewed via link to PDF [facility] [place] [address] Note to Patients: This report may contain [...] Gender: F : 1995 (Age: 29) Address: [address] [place] [address] Hospital #: [id number] Taken:11/30/2024 Received:11/30/2024 Reported: 12/05/2024 Patient Type: [facility] SPECIMEN Service: UNKNOWN Location: Physician(s): Blu [...] Dermatopathology Center, Department of Pathology and Immunology, [facility], [address] [place] [address], [address], [place] [address] CLIA # [id number] Sharonda Estevez M.D. History: The patient is [...] specimen is bisected. Labeled A1. Jar 0. [facility]/11/30/2024 17:58 PA(s): Pamela Solis By this signature, I attest that the above diagnosis is based upon my personal examination of the slides(and/or other material). Addenda/Procedures The performance characteristics of some immunohistochemical stains, fluorescence in-situ hybridization tests and immunophenotyping by flow cytometry cited in this report (if any) were determined by the Surgical Pathology and Flow Cytometry Departments at [facility] as part of an ongoing customer quality specialist program and in compliance with federally [...] Surgical Pathology and Flow Cytometry Departments of [facility]. It has not been cleared or approved by the U. S. Food and Drug Administration. IMAGES AND SCANNED DOCUMENTS, IF INCLUDED, ONLY VIEWABLE IN PDF VERSION OF REPORT Blu Hayes MD LAB PATHOLOGY OR DERABLES Final Result PATHOLOGY [facility] 3rd Floor [place], [place] [phone] * eGFR (09/23/2024 7:24 AM FINE WIRE DRAWER) eGFR >90 >=60 mL/min/1. 73 m2 Comment: [...] last reviewed 2021. Blood 09/23/2024 7:24 AM FINE WIRE DRAWER 09/23/2024 9:41 AM FINE WIRE DRAWER us Antonio [facility] LAB BLOOD ORDERABLES Final Resu lt [facility] [address] [facility] Department of Laboratories [place], [place] [id number] * Differential, auto (09/23/2024 7:24 AM FINE WIRE DRAWER) Neutrophil abs 5.4 1.5 - 6.5 K/cumm Imm gran abs 0.0 0.0 - 0.1 K/cumm [facility] Lymphocyte abs 2.2 0.8 - 3.3 K/cumm [facility] Monocyte abs 0.4 0.2 - 0.8 K/cumm [facility] Eosinophil abs 0.1 0.0 - 0.5 K/cumm [facility] Basophil abs 0.0 0.0 - 0.1 K/cumm [facility] Neutrophil pct 66.1 % [facility] Comment: Interpretive Data Percent cell count reference ranges are not reported, since discordance with absolute values may lead to misinterpretation of CBC data. Current Interpretive Data was last revised on 2018. Imm gran pct 0.5 % [facility] Comment: Interpretive Data Percent cell count reference ranges are not reported, since discordance with absolute values may lead to misinterpretation of CBC data. Current Interpretive Data was last revised on 2018. Lymphocyte pct 26.8 % [facility] Comment: Interpretive Data Percent cell count reference ranges are not reported, since discordance with absolute values may lead to misinterpretation of CBC data. Current Interpretive Data was last revised on 2018. Monocyte pct 5.3 % [facility] Comment: Interpretive Data Percent cell count reference ranges are not reported, since discordance with absolute values may lead to misinterpretation of CBC data. Current Interpretive Data was last revised on 2018. Eosinophil pct 0.9 % [facility] Comment: Interpretive Data Percent cell count reference ranges are not reported, since discordance with absolute values may lead to misinterpretation of CBC data. Current Interpretive Data was last revised on 2018. Basophil pct 0.4 % [facility] Comment: Interpretive Data Percent cell count reference ranges are not reported, since discordance with absolute values may lead to misinterpretation of CBC data. Current Interpretive Data was last revised on 2018. Blood 09/23/2024 7:24 AM FINE WIRE DRAWER 09/23/2024 9:40 AM FINE WIRE DRAWER us Antonio [facility] LAB BLOOD ORDERABLES Final Resu lt LULA [facility] [address] [facility] [place] [address] * HIV 1/2 Antibody plus p24 Antigen Blood (09/23/2024 7:24 AM FINE WIRE DRAWER) [facility] HIV 1/2 ab + p24 ag Nonreactive Nonreactive Comment:Nonreactive for HIV- 1 antigen and HIV-1/HIV-2 antibodies. No laboratory evidence of HIV infection. If acute HIV infection is suspected, consider testing for HIV-1 RNA. Current interpretive data was last revised on 22. Blood 09/23/2024 7:24 AM FINE WIRE DRAWER 09/23/2024 9:41 AM FINE WIRE DRAWER us Antonio [facility] MI[facility]OLOGY - [facility] Final Result Performing Organization Address City/[facility] Co de Phone Number [facility] [address] [facility] [place] [address] * (ABNORMAL) CBC with auto differential (09/23/2024 7:24 AM FINE WIRE DRAWER) [facility] WBC 8.2 3.8 - 9.9 K/cumm Hgb 11.0(L) 11.9 - 15.5 g/dL [facility] Hct 35.1(L) 35.6 - 45.5 % [facility] Plt 532(H) 150 - 400 K/cumm [facility] MPV 8.8(L) 9.1 - 12.3 fL [facility] RBC 4.57 3.90 - 5.20 M/cumm [facility] MCV 76.8(L) 81.3 - 96.4 fL [facility] MCH 24.1(L) 27.1 - 33.3 pg [facility] MCHC 31.3(L) 32.3 - 35.7 g/dL [facility] RDW CV 15.7(H) 11.1 - 14.9 % [facility] RDW SD 43.6 35.7 - 48.1 fL [facility] NRBC abs 0.00 0.00 - 0.01 K/cumm [facility] Blood 09/23/2024 7:24 AM FINE WIRE DRAWER 09/23/2024 9:40 AM FINE WIRE DRAWER Antonio [facility] LAB BLOOD ORDERABLES Final Resu lt L[facility] [address] [facility] [place] [address] * Hepatitis C antibody Blood (09/23/2024 7:24 AM FINE WIRE DRAWER) Pathologist [facility] Hep C Ab Nonreactive Nonreactive Comment: Antibodies [...] revised on 2019. Blood 09/23/2024 7:24 AM FINE WIRE DRAWER 09/23/2024 9:41 AM FINE WIRE DRAWER us Antonio [facility] MICROBIOLOGY - [facility] Final Result Performing Organization Address City/State/[facility] Co de Phone Number [facility] [address] [facility] [place] [address] * Hepatitis B surface antibody (immune status) Blood (09/23/2024 7:24 AM FINE WIRE DRAWER) [facility] HBsAb (immune status) Reactive Comment: Interpretive Data [...] HBsAb (immune status) index 76.8 mIUnits/m L [facility] Blood 09/23/2024 7:24 AM FINE WIRE DRAWER 09/23/2024 9:41 AM FINE WIRE DRAWER us Antonio [facility] MICROBIOLOGY - GENERAL [facility] [place] Final Result Performing Organization Address [facility] de Phone Number ABIGAIL[address] [address] * (ABNORMAL) Hemoglobin A1c (09/23/2024 7:24 AM FINE WIRE DRAWER) Hgb A1C 6.7(H) 4.0 - 5.6 % Estimated Average Glucose 146 mg/dL [facility] Comment: The ADA recommends reporting an estimated Average Glucose (eAG) with all Hemoglobin A1c results using the equation derived from a study of 507 normal and diabetic adults. Minority populations were underrepresented and children were not included. (Diabetes Care 31:2406-9279, 2008). The eAG is not equivalent to a fasting glucose. Blood 09/23/2024 7:24 AM FINE WIRE DRAWER 09/23/2024 9:40 AM FINE WIRE DRAWER Antonio [facility] LAB BLOOD ORDERABLES Final Resu lt Performing Organization Address [facility] de Phone Number ABIGAIL[address] [address] * (ABNORMAL) Lipid panel (09/23/2024 7:24 AM FINE WIRE DRAWER) [facility] Cholesterol 142 30 - 199 [...] revised on 2018. Triglycerides 54 <=149 mg/dL [facility] Comment: Interpretive Data Ages < or = [...] NCEP Expert Panel. Circulation 2004;110:227 3. Oliver Roy al. NELIA Cardiol. 2020 February 01;5(5):540-548. doi: [...] last revised on 2018. Chol/HDL ratio 4 [facility] Blood 09/23/2024 7:24 AM FINE WIRE DRAWER 09/23/2024 9:41 AM FINE WIRE DRAWER us Antonio [facility] LAB BLOOD ORDERABLES Final Resu lt [facility] [address] [facility] [place] [address] * (ABNORMAL) Comprehensive metabolic panel (09/23/2024 7:24 AM FINE WIRE DRAWER) Sodium 136 135 - 145 mmol/L Potassium, pl 3.9 3.3 - 4.9 mmol/L [facility] Chloride 103 97 - 110 mmol/L [facility] CO2 25 22 - 32 mmol/L [facility] Anion gap 8 2 - 15 mmol/L [facility] BUN 9 6 - 25 mg/dL [facility] Creatinine 0.58(L) 0.60 - 1.10 mg/dL [facility] Glucose 105 70 - 199 mg/dL [facility] Comment: Interpretive Data Fasting glucose >/= 126 [...] 2022. Calcium 8.6 8.5 - 10.3 mg/dL [facility] Bilirubin, total 0.2 0.1 - 1.2 mg/dL [facility] Protein, pl 6.6 6.5 - 8.5 g/dL [facility] Albumin 3.8 3.5 - 5.0 g/dL [facility] Alk phos 71 40 - 130 Units/L [facility] ALT 11 7 - 45 Units/L [facility] AST 15 10 - 45 Units/L [facility] Blood 09/23/2024 7:24 AM FINE WIRE DRAWER 09/23/2024 9:41 AM FINE WIRE DRAWER us Antonio [facility] BLOOD ORDERABLES Final Resu lt Performing Organization Address [facility] Co de Phone Number [facility] [address] [facility] [place] [address] * Albumin Creatinine Ratio, Urine (09/23/2024 7:20 AM FINE WIRE DRAWER) Albumin Ur <12.0 mg/L Comment: Interpretive Data No reference range established. Current interpretive data was last revised 2019. Creatinine Ur 197.0 mg/dL [facility] Comment: Interpretive Data No reference range established. Current interpretive data was last revised 2019. Albumin Creatinine Ratio, Ur <6 1 - 29 mg/g [facility] Urine 09/23/2024 7:20 AM FINE WIRE DRAWER 09/23/2024 9:37 AM FINE WIRE DRAWER us Antonio [facility] URINE ORDERABLES Final Resu lt Performing Organization Address [facility] Co de Phone Number L[facility] [address] [facility] [place] [address] from Last 3 Months Insurance [facility] * Guarantor: Simple Admit Account Type Relation to Patient Date of Phone Billing Address Third Democrat Liability Other Care Teams Electron Microprobe Operator Relationship Specialty Start Date End Date Antonio Baldwin PA PCP - General Family Medicine 07/01/22
--- OUTSIDE RECORDS SUMMARY | 2024-12-14 10:16 | XMS_ITS | Patient Health Summary ---
Author Organization [facility] Address [address] [place] [address] Care Team Providers Care Ship Liner Name Role Phone Unavailable Primary Care Provider Unavailabl e Note from [facility],non-owned Affiliates and Associated Physician Practices is amultiple site organization consisting of ambulatory clinics and hospital sitesin [place], [place], [place] and [place]. This disclosure is being madepursuant to the Care Everywhere program and may not contain all information available regarding this patient. Last updated 18.[facility] [employer] Allergies No known active allergies Medications * Be aware that medications may not be up to date on this document. Alwaysverify current medications with the patient. * cetirizine (ZYRTEC) 10 MG tablet(Started 01/14/2010) Take 1 Tab by mouth at bedtime. 3 refills left * fluticasone propionate (FLUTICASONE PROPIONATE) 50 MCG/ACT nasal spray(Started 01/14/2010) [place] 2 Sprays into each nostril daily. 3 [...]
--- OUTSIDE RECORDS SUMMARY | 2024-12-14 10:16 | XMS_ITS | Clinical Summary ---
Author Organization [facility] [place] [address] [facility] Address [address] [place] [address] Care Team Providers Care Writer Name Role Phone Antonio Baldwin Primary Care Provider [phone] Allergies Active Allergy Reactions Criticality Noted Date [...] 02/01/2023 Assessment & Plan (09/24/2024 9:53 PM COLLEGE TEACHER): Chronic uncontrolled Intolerant to metformin Start trulicity [...] Work on low carb diet Refer to cracker sprayer Order a1c in 3mo Dyspnea 12/23/2022 Left foot pain 12/23/2022 Overview (12/23/2022): COnt diclofenac Cont podiatry Intractable migraine with aura without status mi grainosus 10/07/2022 Assessment & Plan (09/24/2024 9:52 PM COLLEGE TEACHER): Chronic stable and improving with quilipta. Continue [...] dosing Assessment & Plan (09/16/2023 4:00 PM COLLEGE TEACHER): Chronic condition Start quilipta Assessment & Plan (10/07/2022 10:23 AM COLLEGE TEACHER): Chronic uncontrolled Start quilipta Wrist sprain, right, [...] MRI Assessment & Plan (12/01/2021 12:34 PM COLLEGE TEACHER): Chronic with worsening pain Refer to naresh lockwood and treat Snoring 06/11/2021 Daytime somnolence 06/11/2021 Parasomnia 06/11/2021 BMI 40.0-44.9, adult 06/11/2021 Assessment & Plan (12/01/2021 12:42 PM COLLEGE TEACHER): Chronic condition not well controlled patient advised [...] 03/12/2021 Assessment & Plan (12/01/2021 12:42 PM COLLEGE TEACHER): Chronic condition order labs for evaluation Eczema of both hands 02/17/2021 Assessment & Plan (02/01/2023 12:56 PM CDT): Chronic and not well controlled Refill triamcinolone. Assessment & Plan (10/07/2022 10:30 AM COLLEGE TEACHER): Start triamcinolone tid prn hands Assessment & [...] 07/18/2020 Assessment & Plan (10/07/2022 10:31 AM COLLEGE TEACHER): Refer to hematology Family history of hemoglobin [...] 07/26/2017 Assessment & Plan (10/07/2022 10:31 AM COLLEGE TEACHER): Chronic Failed p.t. and xrays and nsaids [...] Department Care Team Description 12/06/2024 Orders Only [facility] Dermatology [address] [facility] [address] [place] [phone] Blu Hayes MD 12/04/2024 Orders Only [facility] Dermatology [address] [facility] [address] [place] [address] Blu Hayes MD Rash (Primary Dx) 12/04/2024 Telephone [facility] [address] [place] [address] 4th Floor [address] [place] [address] Maya Granger Scheduling Appointments 11/30/2024 5:24 PM COLLEGE TEACHER - 11/30/2024 11:59 PM COLLEGE TEACHER Hospital Encounter [facility] [address] [place] [address] Discharge Disposition: Discharge to home or self care 11/30/2024 2:00 PM COLLEGE TEACHER [facility] [address] [place] [address] 4th Floor [address] [place] [address] Blu Hayes MD Rash 11/30/2024 Orders Only [facility] [address] [place] [address] Blu Hayes MD Rash 11/30/2024 Telephone [facility] Family Medicine at [address] [place] [phone] Antonio Baldwin PA Appointment Request 10/24/2024 Telephone [facility] Family Medicine at [address] [place] [address] Antonio Baldwin PA 09/29/2024 Telephone [facility] Family Medicine at [address] [place] [address] Antonio Baldwin PA 09/25/2024 Telephone [facility] Family Medicine at [address] [place] [address] Antonio Baldwin PA Lab Results 09/23/2024 7:20 AM COLLEGE TEACHER Lab [facility] [address] [place] [address] Accident caused by hypodermic needle, subsequent encounter; 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) 09/22/2024 10:30 AM COLLEGE TEACHER Office Visit [facility] Family Medicine at [place] [address] [facility] [address] [place] [address] Antonio Baldwin PA Rash (Primary Dx); Accident caused by hypodermic needle, subsequent encounter; 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); Intractable migraine with aura without status migrainosus 09/16/2024 Patient Self-Triage [facility]/ Physicians [address] [place], [place] [id number] Mychart, Generic Provider from Last 3 Months [...] on file Legal Sex Female 11:27 PM COLLEGE TEACHER Gender Identity Female 08/08/2021 9:31 AM CDT Sexual Orientation Straight 08/08/2021 9: 31 AM CDT Obstetrics History Last Filed Vital Signs Vital Sign Reading Time Taken Comments Blood Pressure 114/82 09/22/2024 11:36 AM COLLEGE TEACHER Pulse 61 09/22/2024 11:36 AM COLLEGE TEACHER Temperature 36.5 C (97.7 F) 09/22/2024 11:36 AM COLLEGE TEACHER Respiratory Rate 18 09/22/2024 11:36 AM COLLEGE TEACHER Oxygen Saturation 99% 09/22/2024 11:36 AM COLLEGE TEACHER Inhaled Oxygen Concentration - - Weight 104.1 kg (229 lb 8 oz) 09/22/2024 11:36 A M COLLEGE TEACHER Height 157.5 cm (5' 2 ) 09/22/2024 11:36 AM COLLEGE TEACHER Body Mass Index 41.98 09/22/2024 11:36 AM COLLEGE TEACHER Plan of Treatment Health Maintenance Due Date Last Done Comments Cervical Cancer Screening 1993 Dilated Eye Exam 1993 Foot Exam 1993 Regular Well Visit/Exam 18-64 2011 Pneumococcal vaccine <65 (1 of 2 - PCV) 01/04/2012 Covid-19 Vaccine ( - season) 2024 06/14/2021, 05/24/2021 Hemoglobin A1C 03/24/2025 [...] SURGICAL PATHOLOGY Routine 11/30/2024 2: 33 PM COLLEGE TEACHER Rash EGFR Routine 09/23/2024 7:24 AM COLLEGE TEACHER 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) DIFFERENTIAL AUTO Routine 09/23/2024 7:2 4 AM COLLEGE TEACHER 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) CBC WITH AUTO DIFFERENTIAL Routine 09/23/2024 7:24 AM COLLEGE TEACHER 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) COMPREHENSIVE METABOLIC PANEL Routine 09/23/2024 7:24 AM COLLEGE TEACHER 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) LIPID PANEL Routine 09/23/2024 7:24 AM COLLEGE TEACHER 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) HEMOGLOBIN A1C Routine 09/23/2024 7:24 AM COLLEGE TEACHER 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) HEPATITIS B SURFACE ANTIBODY (IMMUNE STATUS) Routine 09/23/2024 7:24 AM COLLEGE TEACHER Accident caused by hypodermic needle, subsequent encounter HIV 1/2 ANTIBODY PLUS P24 ANTIGEN Routine 09/23/2024 7:24 AM COLLEGE TEACHER Accident caused by hypodermic needle, subsequent encounter HEPATITIS C ANTIBODY Routine 09/23/2024 7:24 AM COLLEGE TEACHER Accident caused by hypodermic needle, subsequent encounter ALBUMIN CREATININE RATIO, URINE Routine 09/23/2024 7:20 AM COLLEGE TEACHER 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) from Last 3 Months Results * Surgical pathology (11/30/2024 2:33 PM COLLEGE TEACHER) Tissue (Skin, biopsy) 11/30/2024 2:33 PM COLLEGE TEACHER 11/30/2024 4:18 PM COLLEGE TEACHER Narrative PATHOLOGY [facility] - 12/05/2024 3:57 PM COLLEGE TEACHER EPIC results best viewed via link to PDF [facility] [place] [address] Note to Patients: This report may contain [...] F : 1995 (Age: 29) Address: [address] [place] [phone] Hospital #: [id number] Taken:11/30/2024 Received:11/30/2024 Reported: 12/05/2024 Patient Type: [facility] SPECIMEN Service: UNKNOWN Location: Physician(s): Blu [...] Dermatopathology Center, Department of Pathology and Immunology, [facility], [address] [place] [address], [address], [place] [address] CLIA # [id number] Sharonda Estevez M.D. History: The patient is [...] specimen is bisected. Labeled A1. Jar 0. [facility]11/30/2024 17:58 PA(s): Pamela Solis By this signature, I attest that the above diagnosis is based upon my personal examination of the slides(and/or other material). Addenda/Procedures The performance characteristics of some immunohistochemical stains, fluorescence in-situ hybridization tests and immunophenotyping by flow cytometry cited in this report (if any) were determined by the Surgical Pathology and Flow Cytometry Departments at [facility] as part of an ongoing quality control tech raw materials program and in compliance with federally mandated [...] Surgical Pathology and Flow Cytometry Departments of [facility]. It has not been cleared or approved by the U. S. Food and Drug Administration. IMAGES AND SCANNED DOCUMENTS, IF INCLUDED, ONLY VIEWABLE IN PDF VERSION OF REPORT Blu Hayes MD LAB PATHOLOGY OR DERABLES Final Result PATHOLOGY [facility] 3rd Floor [place], [place] [phone] * eGFR (09/23/2024 7:24 AM COLLEGE TEACHER) eGFR >90 >=60 mL/min/1. 73 m2 Comment: [...] of Race in Diagnosing Kidney Disease, JASN 202). The CKD-EPI equation should not be used for patients with unstable renal function and has not been validated in children and those over 70. Current interpretive data was last reviewed 2021. Blood 09/23/2024 7:24 AM COLLEGE TEACHER 09/23/2024 9:41 AM COLLEGE TEACHER Antonio BAPTISTE LAB BLOOD ORDERABLES Final Resu lt LULA [address] [facility] Department [place] [address] * Differential, auto (09/23/2024 7:24 AM COLLEGE TEACHER) Neutrophil abs 5.4 1.5 - 6.5 K/cumm Imm gran abs 0.0 0.0 - 0.1 K/cumm [facility] Lymphocyte abs 2.2 0.8 - 3.3 K/cumm [facility] Monocyte abs 0.4 0.2 - 0.8 K/cumm [facility] Eosinophil abs 0.1 0.0 - 0.5 K/cumm [facility] Basophil abs 0.0 0.0 - 0.1 K/cumm [facility] Neutrophil pct 66.1 % [facility] Comment: Interpretive Data Percent cell count reference ranges are not reported, since discordance with absolute values may lead to misinterpretation of CBC data. Current Interpretive Data was last revised on 2018. Imm gran pct 0.5 % [facility] Comment: Interpretive Data Percent cell count reference ranges are not reported, since discordance with absolute values may lead to misinterpretation of CBC data. Current Interpretive Data was last revised on 2018. Lymphocyte pct 26.8 % [facility] Comment: Interpretive Data Percent cell count reference ranges are not reported, since discordance with absolute values may lead to misinterpretation of CBC data. Current Interpretive Data was last revised on 2018. Monocyte pct 5.3 % [facility] Comment: Interpretive Data Percent cell count reference ranges are not reported, since discordance with absolute values may lead to misinterpretation of CBC data. Current Interpretive Data was last revised on 2018. Eosinophil pct 0.9 % [facility] Comment: Interpretive Data Percent cell count reference ranges are not reported, since discordance with absolute values may lead to misinterpretation of CBC data. Current Interpretive Data was last revised on 2018. Basophil pct 0.4 % [facility] Comment: Interpretive Data Percent cell count reference ranges are not reported, since discordance with absolute values may lead to misinterpretation of CBC data. Current Interpretive Data was last revised on 2018. Blood 09/23/2024 7:24 AM COLLEGE TEACHER 09/23/2024 9:40 AM COLLEGE TEACHER Antonio [facility] LAB BLOOD ORDERABLES Final Resu lt Performing Organization Address City/[facility] Co de Phone Number LUL[facility] [address] [address] * HIV 1/2 Antibody plus p24 Antigen Blood (09/23/2024 7:24 AM COLLEGE TEACHER) Pathologist [facility] HIV 1/2 ab + p24 ag Nonreactive Nonreactive Comment:Nonreactive for HIV- 1 antigen and HIV-1/HIV-2 antibodies. No laboratory evidence of HIV infection. If acute HIV infection is suspected, consider testing for HIV-1 RNA. Current interpretive data was last revised on 22. Blood 09/23/2024 7:24 AM COLLEGE TEACHER 09/23/2024 9:41 AM COLLEGE TEACHER us Antonio [facility]APTISTE LAB MICROBIOLOGY - GENERAL ORDE RABLES Final Result Performing Organization Address [facility] Co de Phone Number [address] [address] * (ABNORMAL) CBC with auto differential (09/23/2024 7:24 AM COLLEGE TEACHER) [facility] WBC 8.2 3.8 - 9.9 K/cumm Hgb 11.0(L) 11.9 - 15.5 g/dL [facility] Hct 35.1(L) 35.6 - 45.5 % [facility] Plt 532(H) 150 - 400 K/cumm [facility] MPV 8.8(L) 9.1 - 12.3 fL [facility] RBC 4.57 3.90 - 5.20 M/cumm [facility] MCV 76.8(L) 81.3 - 96.4 fL [facility] MCH 24.1(L) 27.1 - 33.3 pg [facility] MCHC 31.3(L) 32.3 - 35.7 g/dL [facility] RDW CV 15.7(H) 11.1 - 14.9 % [facility] RDW SD 43.6 35.7 - 48.1 fL [facility] NRBC abs 0.00 0.00 - 0.01 K/cumm [facility] Blood 09/23/2024 7:24 AM COLLEGE TEACHER 09/23/2024 9:40 AM COLLEGE TEACHER Antonio BAPTISTE LAB BLOOD ORDERABLES Final Resu lt Performing Organization Address [facility] Co de Phone Number ABIG[address] [place] [address] * Hepatitis C antibody Blood (09/23/2024 7:24 AM COLLEGE TEACHER) Pathologist [facility] Hep C Ab Nonreactive Nonreactive Comment: Antibodies [...] revised on 2019. Blood 09/23/2024 7:24 AM COLLEGE TEACHER 09/23/2024 9:41 AM COLLEGE TEACHER Antonio [facility] LAB MICROBIOLOGY - GENERAL ORDE RABLES Final Result Performing Organization Address [facility] de Phone Number [address] [place] [address] * Hepatitis B surface antibody (immune status) Blood (09/23/2024 7:24 AM COLLEGE TEACHER) HBsAb (immune status) Reactive Comment: Interpretive Data [...] mIUnits/m L [facility] Blood 09/23/2024 7:24 AM COLLEGE TEACHER 09/23/2024 9:41 AM COLLEGE TEACHER Antonio [facility]TISTE LAB MICROBIOLOGY - GENERAL ORDE [facility] Final Result Performing Organization Address [facility] de Phone Number [address] [address] * (ABNORMAL) Hemoglobin A1c (09/23/2024 7:24 AM COLLEGE TEACHER) Hgb A1C 6.7(H) 4.0 - 5.6 % Estimated Average Glucose 146 mg/dL [facility] Comment: The ADA recommends reporting an estimated Average Glucose (eAG) with all Hemoglobin A1c results using the equation derived from a study of 507 normal and diabetic adults. Minority populations were underrepresented and children were not included. (Diabetes Care 31:8448-3868, 2008). The eAG is not equivalent to a fasting glucose. Blood 09/23/2024 7:24 AM COLLEGE TEACHER 09/23/2024 9:40 AM COLLEGE TEACHER Antonio BAPTISTE LAB BLOOD ORDERABLES Final Resu lt Performing Organization Address [facility] Co de Phone Number [address] [place] [address] * (ABNORMAL) Lipid panel (09/23/2024 7:24 AM COLLEGE TEACHER) Pathologist [facility] Cholesterol 142 30 - 199 mg/dL Comment: [...] NCEP Expert Panel. Circulation 2004;110:227 3. Oliver M et al. NELIA Cardiol. 2020 February 01;5(5):540-548. doi: 10.1001/jamacardio.2020.0013 Current Interpretive Data was last revised on 2024. Non-HDL Cholesterol 109 mg/dL [facility] Comment: Interpretive Data Ages < or = [...] last revised on 2018. Chol/HDL ratio 4 [facility] Blood 09/23/2024 7:24 AM COLLEGE TEACHER 09/23/2024 9:41 AM COLLEGE TEACHER us Antonio BAPTISTE LAB BLOOD ORDERABLES Final Resu lt LULA [address] [facility] Department [place] [address] * (ABNORMAL) Comprehensive metabolic panel (09/23/2024 7:24 AM COLLEGE TEACHER) Sodium 136 135 - 145 mmol/L Potassium, pl 3.9 3.3 - 4.9 mmol/L [facility] Chloride 103 97 - 110 mmol/L [facility] CO2 25 22 - 32 mmol/L [facility] Anion gap 8 2 - 15 mmol/L [facility] BUN 9 6 - 25 mg/dL [facility] Creatinine 0.58(L) 0.60 - 1.10 mg/dL [facility] Glucose 105 70 - 199 mg/dL [facility] Comment: Interpretive Data Fasting glucose >/= 126 [...] 2022. Calcium 8.6 8.5 - 10.3 mg/dL [facility] Bilirubin, total 0.2 0.1 - 1.2 mg/dL [facility] Protein, pl 6.6 6.5 - 8.5 g/dL [facility] Albumin 3.8 3.5 - 5.0 g/dL [facility] Alk phos 71 40 - 130 Units/L [facility] ALT 11 7 - 45 Units/L [facility] AST 15 10 - 45 Units/L [facility] Blood 09/23/2024 7:24 AM COLLEGE TEACHER 09/23/2024 9:41 AM COLLEGE TEACHER us Antonio BAPTISTE LAB BLOOD ORDERABLES Final Resu lt Performing Organization Address [facility] de Phone Number [address] [place] [address] * Albumin Creatinine Ratio, Urine (09/23/2024 7:20 AM COLLEGE TEACHER) Albumin Ur <12.0 mg/L Comment: Interpretive Data No reference range established. Current interpretive data was last revised 2019. Creatinine Ur 197.0 mg/dL [facility] Comment: Interpretive Data No reference range established. Current interpretive data was last revised 2019. Albumin Creatinine Ratio, Ur <6 1 - 29 mg/g [facility] Urine 09/23/2024 7:20 AM COLLEGE TEACHER 09/23/2024 9:37 AM COLLEGE TEACHER Antonoi B[facility]TISTE LAB URINE ORDERABLES Final Resu lt Performing Organization Address [facility] Co de Phone Number [place] [address] [facility] [place] [address] from Last 3 Months Insurance [facility] * Guarantor: [facility] [employer] Account Type Relation to Patient Date of Phone Billing Address Third Green Party Liability Other Care Teams Writer Relationship Specialty Start Date End Date Antonio Baldwin PA PCP - General Family Medicine 07/01/22
--- OUTSIDE RECORDS SUMMARY | 2024-12-14 10:16 | XMS_ITS | Clinical Summary ---
Author Organization [facility] Address [address] [facility] [place] [address] Care Team Providers Care Ruby On Rails Web Developer Name Role Phone Unavailable Primary Care Provider Unavailabl e Source Comments [facility],non-owned Affiliates and Associated Physician Practices is amultiple site organization consisting of ambulatory clinics and hospital sitesin [place], [place], [place] and [place]. This disclosure is being madepursuant to the Care Everywhere program and may not contain all informatio navailable regarding this patient. Last updated 18.[facility] Fon Allergies No known active allergies Medications * Be aware that medications may not be up to date on this document. Alwaysverify current medications with the patient. Medication Sig Dispensed Refills Start Date End Date Status cetirizine (ZYRTEC) 10 MG tabletIndications:Aller gic rhinitis Take 1 Tab by mouth at bedtime. 30 3 01/14/2010 Active fluticasone propionate (FLUTICASONE PROPIONATE) 50 MCG/ACT nasal sprayIndications:Allerg ic rhinitis Thornton 2 Sprays into each nostril daily. 1 [...]
--- OUTSIDE RECORDS SUMMARY | 2024-12-14 10:16 | XMS_ITS | Referral Summary ---
Author Organization [facility] Address [address] [place] [address] Care Team Providers Care Straightener Hand Name Role Phone Unavailable Primary Care Provider Unavailabl e Source Comments [facility],non-owned Affiliates and Associated Physician Practices is amultiple site organization consisting of ambulatory clinics and hospital sitesin [place], [place], [place] and [place]. This disclosure is being madepursuant to the Care Everywhere program and may not contain all information available regarding this patient. Last updated 18.[facility] [employer] Allergies No known active allergies Medications * Be aware that medications may not be up to date on this document. Alwaysverify current medications with the patient. Medication Sig Dispensed Refills Start Date End Date Status cetirizine (ZYRTEC) 10 MG tabletIndications:Aller gic rhinitis Take 1 Tab by mouth at bedtime. 30 3 01/14/2010 Active fluticasone propionate (FLUTICASONE PROPIONATE) 50 MCG/ACT nasal sprayIndications:Allerg ic rhinitis Currie 2 Sprays into each nostril daily. 1 [...]
--- OUTSIDE RECORDS SUMMARY | 2024-12-14 10:18 | XMS_ITS | Encounter Summary ---
Author Organization [facility] Care Team Providers Care Tester Wafer Substrate Name Role Phone Phillip Coker MD Primary Care Provider Antonio Baldwin Primary Care Provider Encounter Details Date Type Department Care Team (Latest Contact Info) Description 10/28/2018 Orders Only [facility] ProviderPérez MD [address] [place] [address] Social History Tobacco Use Types Packs/Day Years Used Date Smoking Tobacco: Never Assessed Comments Unknown Sex and Gender Information Value Date Recorded Sex Assigned at Not on file Legal Sex Female 11:27 PM SENIOR SUPPORT ANALYST Gender Identity Female 08/08/2021 9:31 AM CDT Sexual Orientation Straight 08/08/2021 9: 31 AM CDT documented as of this encounter Plan of Treatment Not on file documented as of this encounter Procedures Procedure Name Priority Date/Time Associated Diagnosis Comments CARDIOLOGY REPORT 10/28/2018 12: 00 AM SENIOR SUPPORT ANALYST documented in this encounter Results * CARDIOLOGY REPORT (10/28/2018 12:00 AM SENIOR SUPPORT ANALYST) Anatomical Region Laterality Modality Other Narrative 10/28/2018 12:00 AM SENIOR SUPPORT ANALYST Ordered by an unspecified provider. Historical Provider [facility] MARTHA HARDING Final Result documented in this encounter Visit Diagnoses Not on filedocumented in this encounter Additional Health Concerns Infection Onset Date Last Indicated Resolved Time COVID: Suspected 09/01/2021 09/01/2021 09/02/2021 1:03 AM SENIOR SUPPORT ANALYST COVID: Suspected 10/01/2021 10/01/2021 10/02/2021 4:52 AM SENIOR SUPPORT ANALYST COVID19 10/01/2021 10/01/2021 10/15/2021 3:07 AM SENIOR SUPPORT ANALYST COVID: Recovered Comment:Added based on recent COVID infection. 10/15/2021 10/20/2021 02/12/2022 3:05 AM C DT COVID: Suspected 12/11/2021 12/11/2021 12/12/2021 12:07 AM SENIOR SUPPORT ANALYST COVID: Suspected 06/21/2023 06/21/2023 06/21/2023 3:30 PM CDT COVID: Suspected 06/21/2023 06/21/2023 06/21/2023 6:32 PM CDT documented as of this encounter Care Teams Tester Wafer Substrate Relationship Specialty Start Date End Date Phillip Coker MD PCP - General 12/30/18 06/30/22 Antonio Baldwin PA PCP - General Family Medicine 07/01/22 documented as of this encounter
--- OUTSIDE RECORDS SUMMARY | 2024-12-14 10:18 | XMS_ITS | Data Portability ---
Author Organization [place] - [facility] OFFICE Address [address] [place] [id number] Assessment Encounter Date Assessment Date Assessment LastModified by Organization Details LastModified Time 11/20/2020 11/20/2020 Discussed with patient findings, diagnosis, and prognosis. Discussed evaluation and treatment options including risks and benefits with patient, and patient expressed understanding. The following interventions were recommended: heart healthy low-fat, low-sodium diet, begin regular exercise,maintai n appropriate weight, continue current medications, and medical follow-up as noted. [email or web address] Not available 11/20/2020 11:12:34 03/12/2021 03/12/2021 Discussed with patient findings, diagnosis, and prognosis. Discussed evaluation and treatment options including risks and benefits with patient, and patient expressed understanding. The following interventions were recommended: heart healthy low-fat, low-sodium diet, begin regular exercise,maintai n appropriate weight, continue current medications, and medical follow-up as noted. [email or web address] Not available 03/12/2021 17:08:25 01/12/2023 01/12/2023 Patient [...] By Organization Details Last Modified Time 11/20/2020 82570 When You Want to Lose Weight: Care Instructions [email or web address] Not available 11/20/2020 11:19:54 leg and ankle edema: care instructions [email or web address] Not available 11/20/2020 11:19:54 03/12/2021 30308 When You Want to Lose Weight: Care Instructions [email or web address] Not available 03/12/2021 17:16:33 leg and ankle edema: care instructions [email or web address] Not available 03/12/2021 17:16:33 high cholesterol : care instructions [email or web address] Not available 03/12/2021 17:16:33 01/12/2023 12920 Exercise advised Low cholesterol diet advised Low sodium diet advised. [email or web address] Not available 01/12/2023 11:32:47 05/01/2023 25967 Exercise advised Low cholesterol diet advised Low [...] 1 view No observ ation record ed. [email or web address] Not Available 11/14 15:45:34 11/14/19 21 10/13/2020 elect rocar diogr am No observ ation record ed. [email or web address] Not Available 2020 14:35:10 12/03/19 21 11/14/2020 stres s echoc ardio gram No observ ation record ed. [email or web address] Not Available 2020 12:04:27 03/13/20 21 03/12/2021 elect rocar diogr am No observ ation record ed. [email or web address] Not Available 03/13 15:21:32 10/15/19 23 10/14/2022 [...] and Address Organization Details Recorded Time Hyperlipidemia 28912199 Active 2020 Chito Anabel pa[place], [place] - [facility] 16:57:12 Acute maxillary sinusitis 70012043 Active 2016 Alessandra paiz, [place] - [facility] 7 14:50:19 Low back pain 260699133 Active 2016 Al[place], [place] - [facility] 7 14:50:29 Chest pain 67280355 Active 2016 Al[place], [place] - [facility] 7 14:50:41 Vitamin D deficiency 02611843 Active 2016 Al[place], [place] - [facility] 7 14:51:18 Obstructive sleep apnea syndrome 54252360 Active 2016 Al[place], [place] - [facility] 7 14:51:27 Snoring 37499595 Active 2016 [place], [place] - [facility] 7 14:51:38 Fatigue 40656641 Active 2016 [place], [place] - [facility] 7 15:55:42 Palpitations 88063955 Active 2016 [place], [place] - [facility] 7 15:55:52 Headache 71914903 Active 2016 [place], [place] - [facility] 7 15:55:59 Increased blood pressure 51824541 Active 2016 Chito paiz [facility] 17:20:00 Edema of lower extremity 352136132 Active 2016 Chito paiz [facility] 7 17:32:02 Obesity 214115128 Active 2020 Chito paiz [facility] 11:06:57 Problem Notes None recorded. Procedures Surgical History None recorded. Imaging Results Imaging Date Name Status LastModified by Organization Details LastModified Time 10/13/2020 electrocardiogram completed Informa tion not available 11/13/2020 12:10:27 10/13/2020 XR, chest, 1 view completed [email or web address] Informa tion not available 11/14/2020 15:45:34 10/13/2020 electrocardiogram completed Informa tion not available 11/19/2020 14:35:10 11/14/2020 stress echocardiogram completed [email or web address] Information not available 12/02/2020 12:04:27 03/12/2021 electrocardiogram completed [email or web address] Informa tion not available 03/13/2021 15:21:32 10/14/2022 [...] Not available Not available Not available 08/14/2017 88034 8003 SNOMED Vahe paiz [facility] 07:16:38 Medications Name Sig Start Date Stop [...] Updated DateTime 1 165.1 cm 35.4 kg/m2 13258.1 7 g 81 /min 18 /min 99 % 99 % 97.1 [degF] 108 mm[Hg] 78 mm[Hg] Krystal Dutta [facility] 1 10:49:24 Date Recorded Body height Body mass index (BMI) Body weight Body temperature Heart rate Oxygen saturation Oxygen saturation in Arterial blood by Pulse oximetry Systolic blood pressure Diastolic blood pressure Provider Name and Address Organization Details Last Updated DateTime 1 165.1 cm 36.1 kg/m2 42393.5 4 g 97.4 [degF] 73 /min 100 % 100 % 116 mm[Hg] 78 mm[Hg] KARLIE CALLE [facility] 1 15:49:42 Date Recorded Body height Body mass index (BMI) Body weight Heart rate Oxygen saturation Oxygen saturation in Arterial blood by Pulse oximetry Systolic blood pressure Diastolic blood pressure Provider Name and Address Organization Details Last Updated DateTime 3 165.1 cm 38.3 kg/m2 989072. 25 g 76 /min 99 % 99 % 127 mm[Hg] 75 mm[Hg] Ramila Lanier [facility] 3 15:06:27 Date Recorded Body height Body mass index (BMI) Body weight Oxygen saturation Oxygen saturation in Arterial blood by Pulse oximetry Heart rate Systolic blood pressure Diastolic blood pressure Provider Name and Address Organization Details Last Updated DateTime 3 165.1 cm 38.4 kg/m2 155292. 04 g 97 % 97 % 71 /min 114 mm[Hg] 80 mm[Hg] BALJINDER MARTIN [facility] 3 11:13:33 Date Recorded Body height Body mass index (BMI) Body weight Heart rate Oxygen saturation Oxygen saturation in Arterial blood by Pulse oximetry Systolic blood pressure Diastolic blood pressure Provider Name and Address Organization Details Last Updated DateTime 3 165.1 cm 38.3 kg/m2 670174. 25 g 61 /min 99 % 99 % 104 mm[Hg] 76 mm[Hg] Isaura Handy [facility] 3 10:33:09 Social History Question Answer Notes LastModified by Organizat ion Details LastModified Time Tobacco Smoking Status Never Smoker Not Available [facility] 08/06/2020 03:30:42 What Is Your Level Of Alcohol Consumption? None [id number] Information not available 08/06/2020 What Is Your Level Of Caffeine Consumption? Occasional [id number] Information not available 08/06/2020 How Much Tobacco Do You Chew? None [id number] Information not available 08/06/2020 What Type Of Diet Are You Following? REGULAR [id number] Information not available 08/06/2020 Which Illicit Or Recreational Drugs Have You Used? No [id number] Information not available 08/06/2020 Do You Or Have You Ever Used E-cigarettes Or Vape? Never Used Electronic Cigarettes [id number] Information not available 08/06/2020 What Is Your Occupation? [employer] [id number] Information not available 08/06/2020 Live Alone Or With Others? With Others [email or web address] Information not available 08/17/2017 Marital Status Single [email or web address] Informatio n not available 08/17/2017 What Was The Date Of Your Most Recent Tobacco Screening? 01/27/2019 [id number] Information not available 08/06/2020 How Many Children Do You Have? 1 [id number] Information not available 08/06/2020 Do You Or Have You Ever Used Smokeless Tobacco? Never Used Smokeless Tobacco [id number] Information not available 08/06/2020 How Much Tobacco Do You Smoke? No [id number] Information not available 08/06/2020 General Stress Level Low [email or web address] Information not available 08/17/2017 How Many Years Have You Smoked Tobacco? 0 [id number] Information not available 08/06/2020 Sex: Unknown Functional Status Question Answer Note LastModified by Organization D etails LastModified Time What is your exercise level? None [id number] Information not available 08/06/2020 Mental Status None [...] available 2016 07:16:28 Maternal Grandmother Heart disease [email or web address] Not available 2016 17:23:47 Mother Heart disease mother with no CAD; cardio myopat hy at age 43; Matern al grandm other' s sister with cardio myopat hy. [email or web address] Not available 08/17/2017 17:25:34 Mother Myocardial infarction 45 [email or web address] Not available 11/26 14:26:20 Mother Hypertensive disorder [email or web address] Not available 2016 16:01:24 Mother Heart failure [email or web address] Not available 2016 16:01:49 Maternal Uncle Diabetes mellitus [email or web address] Not available 2016 16:00:41 Maternal Uncle Hypertensive disorder [email or web address] Not available 2016 16:01:36 Maternal Uncle Cerebrovascu lar accident [email or web address] Not available 16:02:06 Paternal Grandmother Hypertensive disorder [email or web address] Not available 2016 16:01:29 Medical History Condition Response Hypertension Y Sleep Apnea Y Gynecological HistoryNo gynecological history recorded. Obstetrics History GPAL:G 0 P 0 0 0 0 Past Encounters Encounter ID Performer Location Encounter Start Date Encounter Closed Date Diagnosis/Indication Diagnosis SNOMED-CT Code Diagnosis ICD10 Code Diagnosis Note [id number] Chito Little [facility] [address] [place] [address] 08/17/2017 15:19:25 08/18/2017 09:47:10 Palpitations 75932795 R00.2 Infrequent but related to chest pain on occasion. 24 Hr Holter. Obtain TSH, BMP, Mg. Chest pain 92716515 R07. 9 Patient presents with {{chest* a [...] nitroglyce rin.}} Obstructiv e sleep apnea syndrome 86432652 G47.33 Pt has CHRISTINA and not using CPAP. Discussed in length importance of using CPAP and patient will retry. Increased blood pressure 55763163 R03.0 Blood pressure is elevated at home per patient report. Normal BP in office today. Will keep close follow up, and consider medication change if blood pressure is still elevated. BP diary. Edema of l ower extremity 798473038 R60.0 Occasional bilateral pedal edema, absent at present. Low sodium diet, 2gm/day. [id number] Chito Rowell Office [address] [place] [address] 11/26/2017 12:22:03 11/26/2017 14:36:25 Chest pain 73537355 R07.9 Resolved. Had SE 09/07/17 : Negative stress echo for ischemia. Has family history of premature CO. Needs to keep LDL less than 70-100, and HDL more than 40. Had LDL 116 09/07/17. Not using statin since may want another child. 20 lb. weight loss recommende d over the next 2 months. Increase exercise. {{ Patient has been given a prescripti on for sublingual nitroglyce rin.}} Palpitations 50153531 R0 0.2 Resolved. Holter Monitor 09/07/17 : Unremarkab le Holter. No PAC's. No PVC's. NSR and sinus tachycardi a. Symptoms of chest pain associated with normal sinus rhythm. Obtained TSH, BMP, Mg (all normal 09/2017). Obstructiv e sleep apnea syndrome 50202101 G47.33 Pt has CHRISTINA and not using CPAP. Discussed in length importance of using CPAP and patient will retry. Increased blood pressure 25573638 R03.0 Blood pressure is elevated at home per patient report on occasion. Normal BP in office today and last visit. Will keep close follow up, and consider medication change if blood pressure is still elevated. BP diary. Edema of l ower extremity 728082637 R60.0 Occasional bilateral pedal edema, absent at present. Low sodium diet, 2gm/day. [id number] Rigo Ibanez MD [facility] [address] [place] [address] 07/29/2018 11:11:29 07/29/2018 12:17:41 Chest pain 23414679 R07.9 Resolved. Had SE 09/07/17 : Negative stress echo for ischemia. Has family history of premature CO. Needs to keep LDL less than 70-100, and HDL more than 40. Had LDL 116 09/07/17. Not using statin since may want another child. 20 lb. weight loss recommende d over the next 2 months. Increase exercise. {{ Patient has been given a prescripti on for sublingual nitroglyce rin.}} Palpitations 68811120 R0 0.2 Resolved. Holter Monitor 09/07/17 : Unremarkab le Holter. No PAC's. No PVC's. NSR and sinus tachycardi a. Symptoms of chest pain associated with normal sinus rhythm. Obtained TSH, BMP, Mg (all normal 09/2017). Obstructiv e sleep apnea syndrome 45441446 G47.33 Pt has CHRISTINA and not using CPAP. Discussed in length importance of using CPAP and patient will retry. Will order home sleep study. Increased blood pressure 63358360 R03.0 Blood pressure is elevated at home per patient report on occasion. Normal BP in office today and last visit. Will keep close follow up, and consider medication change if blood pressure is still elevated. BP diary. Edema of l ower extremity 287973717 R60.0 Occasional bilateral pedal edema, absent at present. Low sodium diet, 2gm/day. [id number] Rigo Ibanez MD [facility] [address] [place] [address] 01/27/2019 10:13:07 01/27/2019 11:26:47 Chest pain 55272904 R07.9 Resolved.H ad SE 09/07/17 : Negative stress echo for ischemia{{ Patient has been given a prescripti on for sublingual nitroglyce rin.}} Palpitations 72268245 R0 0.2 Resolved. Holter Monitor 09/07/17 : Unremarkab le Holter. No PAC's. No PVC's. NSR and sinus tachycardi a. Symptoms of chest pain associated with normal sinus rhythm. Obtained TSH, BMP, Mg (all normal 09/2017). Obstructiv e sleep apnea syndrome 99358508 G47.33 Pt has CHRISTINA and not using CPAP. Discussed in length importance of using CPAP and patient will retry. Will order home sleep study. Increased blood pressure 35204437 R03.0 Well controlled . Edema of l ower extremity 559516434 R60.0 Occasional bilateral pedal edema, absent at present. Low sodium diet, 2gm/day. [id number] Allegra Ibrahim e Office [address] [place] [address] 12/14/2019 15:26:13 12/14/2019 16:05:59 Chest pain 53590949 R07.9 Resolved.H ad SE 09/07/17 : Negative stress echo for ischemia{{ Patient has been given a prescripti on for sublingual nitroglyce rin.}} Palpitations 77862280 R0 0.2 Resolved. Holter Monitor 09/07/17 : Unremarkab le Holter. No PAC's. No PVC's. NSR and sinus tachycardi a. Symptoms of chest pain associated with normal sinus rhythm. Obtained TSH, BMP, Mg (all normal 09/2017). Obstructiv e sleep apnea syndrome 87750701 G47.33 Pt has CHRISTINA and not using CPAP. Discussed in length importance of using CPAP and patient will retry. Will order home sleep study. Increased blood pressure 12813197 R03.0 Well controlled . Edema of l ower extremity 498685026 R60.0 Occasional bilateral pedal edema, absent at present. Low sodium diet, 2gm/day. Systolic murmur 86477817 R01.1 Noted on exam today. Likely physiologi c with . Had echo last year with possible mitral prolapse but otherwise no significan t valvular disease.Sh e has mild dyspnea. Will consider repeat echo if symptoms worsen. WIll see pt in follow up before her scheduled delivery in May. Dyspnea on exertion 6084 5006 R06.09 [id number] Allegra Rowell Office [address] [place] [address] 04/03/2020 15:39:01 04/03/2020 16:18:51 Systolic murmur 06542371 R01.1 Noted on exam today. Likely physiologi c with . echo with possible mitral prolapse but otherwise no significan t valvular disease.Sh e has stable dyspnea associate with Chest pain 07825875 R07. 9 Resolved.H ad SE 09/07/17 : Negative stress echo for ischemia{{ Patient has been given a prescripti on for sublingual nitroglyce rin.}} Palpitations 57567416 R0 0.2 Resolved. Holter Monitor 09/07/17 : Unremarkab le Holter. No PAC's. No PVC's. NSR and sinus tachycardi a. Symptoms of chest pain associated with normal sinus rhythm. Obtained TSH, BMP, Mg (all normal 09/2017). Obstructiv e sleep apnea syndrome 38031054 G47.33 Pt has CHRISTINA and not using CPAP. Discussed in length importance of using CPAP and patient will retry. Will order home sleep study. Increased blood pressure 29946534 R03.0 Well controlled . Edema of l ower extremity 291397259 R60.0 Occasional bilateral pedal edema, absent at present. Low sodium diet, 2gm/day. Dyspnea on exertion 6084 5006 R06.09 Family his tory of Cardiomyopathy 617345369 Z82.49 Echo last year with no hypertroph y. Repeat echo in 5 years. Consider genitic testing [id number] Aihca Newman [facility] [address] [place] [address] 10/15/2020 16:15:07 10/15/2020 17:38:11 Systolic murmur 39655668 R01.1 Likely physiologi c with . echo with possible mitral prolapse but otherwise no significan t valvular disease.Sh e has stable dyspnea associate with Chest pain 92216566 R07. 9 ER visit Obta in stress Echo Had SE 09/07/17 : Negative stress echo for ischemia{{ Patient has been given a prescripti on for sublingual nitroglyce rin.}} Palpitations 84440214 R0 0.2 Resolved. Holter Monitor 09/07/17 : Unremarkab le Holter. No PAC's. No PVC's. NSR and sinus tachycardi a. Symptoms of chest pain associated with normal sinus rhythm. Obtained TSH, BMP, Mg (all normal 09/2017). Family his tory of Cardiomyopathy 128039390 Z82.49 Echo last year with no hypertroph y. Repeat echo in 5 years. Consider genitic testing Obstructiv e sleep apnea syndrome 51802375 G47.33 Pt has CHRISTINA and not using CPAP. Discussed in length importance of using CPAP and patient will retry. Edema of l ower extremity 204480519 R60.0 Occasional bilateral pedal edema, absent at present. Low sodium diet, 2gm/day. Dyspnea on exertion 6084 5006 R06.09 [id number] Chito Little [facility] [address] [place] [address] 11/20/2020 10:42:05 11/20/2020 11:20:25 Systolic murmur 09306316 R01.1 Likely physiologi c with previously .Previousl y had echo with possible mitral prolapse but otherwise no significan t valvular disease. No MVP on echo in last 2 years since 10/2018. Chest pain 00994302 R07. 9 Atypical, resolved. [facility] ER visit 10/13/20 for upper central chest [...] prescripti on for sublingual nitroglyce rin.}} Palpitations 38383458 R0 0.2 Resolved. Holter Monitor 09/07/17 : Unremarkab le Holter. No PAC's. No PVC's. NSR and sinus tachycardi a. Symptoms of chest pain associated with normal sinus rhythm. Obtained TSH, BMP, Mg (all normal 09/2017). Family his tory of Cardiomyopathy 109703625 Z82.49 Echo recently with no hypertroph y. Repeat echo in 2 years. Consider genetic testing. Had stress echo 11/14/20: Negative stress echo for ischemia, mild exercise impairment . Had ECHO done in 10/14/18 showed normal global systolic function , EF 60-65% , mild tricuspid regurgitat ion. Sinus bradycardi a . Obtain FLP. Obstructiv e sleep apnea syndrome 30035120 G47.33 Pt has CHRISTINA and not using CPAP. Discussed in length importance of using CPAP and patient will retry pending receipt of new masks/stra ps. Follows with [facility]. Edema of l ower extremity 379402935 R60.0 Occasional bilateral pedal edema, absent at present. Low sodium diet, 2gm/day. Dyspnea on exertion 6084 5006 R06.09 Improved. Had stress echo 11/14/20: Negative stress echo for ischemia, mild exercise impairment . Had ECHO done in 10/14/18 showed normal global systolic function , EF 60-65% , mild tricuspid regurgitat ion. Sinus bradycardi a. Increase walking. Obesity 762952146 E66.9 20 lb. weight loss recommende d over the next 2 months. [id number] Chito Anabel [facility] [address] [place] [address] 03/12/2021 15:37:27 03/12/2021 17:17:03 Systolic murmur 71776914 R01.1 Likely physiologi c with previously .Previousl y had echo with possible mitral prolapse but otherwise no significan t valvular disease. No MVP on echo in last 2 years since 10/2018. Chest pain 43748885 R07. 9 Atypical, resolved. Had [place] [facility] ER visit 10/13/20 for upper central chest [...] prescripti on for sublingual nitroglyce rin.}} Palpitations 16049582 R0 0.2 Resolved. Holter Monitor 09/07/17 : Unremarkab le Holter. No PAC's. No PVC's. NSR and sinus tachycardi a. Symptoms of chest pain associated with normal sinus rhythm. Obtained TSH, BMP, Mg (all normal 09/2017). Obtain labs with PCP in 1-2 weeks. Family his tory of Cardiomyopathy 129437587 Z82.49 Echo recently with no hypertroph y. [...] for LVH. Obstructiv e sleep apnea syndrome 66276823 G47.33 Pt has CHRISTINA and not using CPAP. Discussed in length importance of using CPAP and patient will retry pending receipt of new masks/stra ps. Follows with [facility] sleep clinic and needs f/u for new CPAP equipment. Edema of l ower extremity 346873353 R60.0 Improved. Occasional bilateral pedal edema, absent at present. Low sodium diet, 2gm/day. Needs CPAP for CHRISTINA per [facility] sleep clinic. Dyspnea on exertion 6084 5006 R06.09 Improved. Had stress echo 11/14/20: Negative stress echo for ischemia, mild exercise impairment . Had ECHO done in 10/14/18 showed normal global systolic function , EF 60-65% , mild tricuspid regurgitat ion. Sinus bradycardi a. Increase walking. Obesity 920938935 E66.9 20 lb. weight loss recommende d over the next 2 months. Hyperlipidemia 31678881 E78.5 Had 03/04/21 LIPID: TC 173, HDL 43, TG 61, LDL 115 Needs to keep LDL less than 70-100, and HDL more than 40. Increase walking. Reduce fatty red meat and egg yolks. Given age and child-bear ing potential, avoiding statin at present and will work with dietary therapy. Repeat FLP in 6 mo. [id number] MD Patrice Calderón Office [address] [place] [address] 10/14/2022 14:41:04 10/14/2022 15:34:14 Systolic murmur 12206545 R01.1 Likely physiologi c with previously .Previousl y had echo with possible mitral prolapse but otherwise no significan t valvular disease. No MVP on echo in last 2 years since 10/2018. Chest pain 38431574 R07. 9 Atypical, resolved. [facility] ER visit 10/13/20 for upper central chest [...] prescripti on for sublingual nitroglyce rin.}} Palpitations 85695645 R0 0.2 Resolved. Holter Monitor 09/07/17 : Unremarkab le Holter. No PAC's. No PVC's. NSR and sinus tachycardi a. Symptoms of chest pain associated with normal sinus rhythm. Obtained TSH, BMP, Mg (all normal 09/2017). Obtain labs with PCP in 1-2 weeks. Family his tory of Cardiomyopathy 998874622 Z82.49 Echo recently with no hypertroph y. [...] for LVH. Obstructiv e sleep apnea syndrome 76372133 G47.33 Pt has CHRISTINA and not using CPAP. Discussed in length importance of using CPAP and patient will retry pending receipt of new masks/stra ps. Follows with [facility] sleep clinic and needs f/u for new CPAP equipment. Edema of l ower extremity 571283910 R60.0 Improved. Occasional bilateral pedal edema, absent [...] ion. Sinus bradycardi a. Increase walking. Obesity 792224121 E66.9 20 lb. weight loss recommende d over the next 2 months. Hyperlipidemia 43031042 E78.5 Had 03/04/21 LIPID: TC 173, HDL 43, TG 61, LDL 115 Needs to keep LDL less than 70-100, and HDL more than 40. Increase walking. Reduce fatty red meat and egg yolks. Given age and child-bear ing potential, avoiding statin at present and will work with dietary therapy. Repeat FLP in 6 mo. [id number] LAKESHIA DE LA O [facility] [address] [place] [address] 01/12/2023 10:45:51 01/12/2023 11:53:26 Systolic murmur 03534752 R01.1 Likely physiologi c with previously .Previousl y had echo with possible mitral prolapse but otherwise no significan t valvular disease. No MVP on echo in last 2 years since 10/2018. Chest pain 24649763 R07. 9 Atypical, resolved. Had [place] ER visit 10/13/20 for upper central chest [...] prescripti on for sublingual nitroglyce rin.}} Palpitations 88290932 R0 0.2 Resolved. Holter Monitor 09/07/17 : Unremarkab le Holter. No PAC's. No PVC's. NSR and sinus tachycardi a. Symptoms of chest pain associated with normal sinus rhythm. Obtained TSH, BMP, Mg (all normal 09/2017). Obtain labs with PCP in 1-2 weeks. Family his tory of Cardiomyopathy 467083886 Z82.49 Echo recently with no hypertroph y. [...] for LVH. Obstructiv e sleep apnea syndrome 36016435 G47.33 Pt has CHRISTINA and not using CPAP. Discussed in length importance of using CPAP and patient will retry pending receipt of new masks/stra ps. Follows with [facility] sleep clinic and needs f/u for new CPAP equipment. Edema of l ower extremity 673423175 R60.0 Improved. Occasional bilateral pedal edema, absent at present. Low sodium diet, 2gm/day. Needs CPAP for CHRISTINA per [facility] sleep clinic. Dyspnea on exertion 6084 5006 R06.09 will repeat Echo Had stress echo 11/14/20: Negative stress echo for ischemia, mild exercise impairment . Had ECHO done in 10/14/18 showed normal global systolic function , EF 60-65% , mild tricuspid regurgitat ion. Sinus bradycardi a. Increase walking. Obesity 045238153 E66.9 20 lb. weight loss recommende d over the next 2 months. Hyperlipidemia 68873865 E78.5 Had 03/04/21 LIPID: TC 173, HDL 43, TG 61, LDL 115 Needs to keep LDL less than 70-100, and HDL more than 40. Increase walking. Reduce fatty red meat and egg yolks. Given age and child-bear ing potential, avoiding statin at present and will work with dietary therapy. Repeat FLP [id number] [facility] [address] [place] [address] 05/01/2023 09:57:33 05/01/2023 10:48:06 Systolic murmur 51514797 R01.1 Likely physiologi c with previously .Previousl y had echo with possible mitral prolapse but otherwise no significan t valvular disease. No MVP on echo in last 2 years since 10/2018. Chest pain 60241215 R07. 9 Atypical, resolved. Had [place] [facility] ER visit 10/13/20 for upper central chest [...] prescripti on for sublingual nitroglyce rin.}} Palpitations 20186648 R0 0.2 Resolved. Holter Monitor 09/07/17 : Unremarkab le Holter. No PAC's. No PVC's. NSR and sinus tachycardi a. Symptoms of chest pain associated with normal sinus rhythm. Obtained TSH, BMP, Mg (all normal 09/2017). Obtain labs with PCP in 1-2 weeks. Family his tory of Cardiomyopathy [id number] Z82.49 Echo recently with no hypertroph y. [...] for LVH. Obstructiv e sleep apnea syndrome 86869305 G47.33 Pt has CHRISTINA and not using CPAP. Discussed in length importance of using CPAP and patient will retry pending receipt of new masks/stra ps. Follows with [facility] sleep clinic and needs f/u for new CPAP equipment. Edema of l ower extremity 567912207 R60.0 Resolved Occasional bilateral pedal edema, absent at present. Low sodium diet, 2gm/day. Needs CPAP for CHRISTINA per [facility] sleep clinic. Dyspnea on exertion 6084 5006 R06.09 resolved Had stress echo 11/14/20: Negative stress echo for ischemia, mild exercise impairment . Had ECHO done in 10/14/18 showed normal global systolic function , EF 60-65% , mild tricuspid regurgitat ion. Sinus bradycardi a. Increase walking. Obesity 806845690 E66.9 20 lb. weight loss recommende d over the next 2 months. Hyperlipidemia 42005697 E78.5 Had 03/04/21 LIPID: TC 173, HDL [...] Snyder Member ID Guarantor Name 11/20/2020 1 [facility] (MEDICAID HMO) [id number] 0003 Yenni Francois [id number] Yenni Francois 03/12/2021 1 [facility] (MEDICAID HMO) [id number] 0003 Yenni Francois [id number] Yenni Francois 10/14/2022 1 [facility] (MEDICAID HMO) [id number] 0003 Yenni Alessandro [id number] Yenni Francois 01/12/2023 1 [facility] (MEDICAID HMO) [id number] 0003 Yenni Francois [id number] Yenni Francois 05/01/2023 1 [facility] (MEDICAID HMO) [id number] 0003 Yenni Francois [id number] Yenni Francois Notes Date Note Type Note Provider Name and Address Organization Details Recorded Time 11/20/2020 text/html 11/20/20 CC: chest pain 25 year-old -[place] woman with h/o CHRISTINA (awaiting CPAP mask, [facility]), obesity, GERD, family history with mother with hypertrophic cardiomyopathy diagnosed at age 43 and mother with premature CO at 45, is here for follow. Giovanna [...] RBC 4.65 HGB 11.9 HCT 35.3 PLT 9778410/15/17 : MG 2.: Na 138 ,K 3.9 [...] follow up resolution is recommened Ch[place] paiz [place] - [facility] 11/20/2020 11:20:22 03/12/2021 text/html 03/12/21 CC: chest pain 26 year-old -[place] woman with h/o CHRISTINA (awaiting CPAP mask, [facility]), obesity, GERD, family history with mother with hypertrophic cardiomyopathy diagnosed at age 43 and mother with premature CO at 45, seasonal allergies, anemia, is here for follow. She was admitted to [facility] 02/19/21-02/22/21 for pneumonia, COVID-19 negative, with resolution of cough but persistent bilateral lower back pain. She had follow-up with PCP. She has not been vaccinated for COVID-19. Had [place] ER visit 10/13/20 for upper central chest [...] not using CPAP, awaiting new mask with [facility] sleep clinic. She was in the ER [...] RBC 4.65 HGB 11.9 HCT 35.3 PLT 8589110/15/17 : MG 2.: Na 138 ,K 3.9 [...] follow up resolution is recommened [place] paiz [place] [facility] 03/12/2021 17:17:01 10/14/2022 text/html 10/14/22CC : Car diac follow up, dyspnea on [id number] year-old -[place] woman with h/o CHRISTINA ( on CPAP mask, [facility]), obesity, GERD, family history with mother with hypertrophic cardiomyopathy diagnosed at age 43 and mother with premature CO at 45, seasonal allergies, anemia, is here [...] takes any statins. Previously:She was admitted to [facility] 02/19/21-02/22/21 for pneumonia, COVID-19 negative, with resolution of cough but persistent bilateral lower back pain. She had follow-up with PCP. She has not been vaccinated for COVID-19. Had [place] ER visit 10/13/20 for upper central chest [...] not using CPAP, awaiting new mask with [facility] sleep clinic. She was in the ER [...] RBC 4.65 HGB 11.9 HCT 35.3 PLT 9070510/15/17 : MG 2.: Na 138 ,K 3.9 [...] up resolution is recommened Rigo Ibanez MD [address] [place], [address], [facility] 10/14/2022 15:28:26 01/12/2023 text/html 01/12/23CC : Car diac follow up dyspnea on year-old -[place] woman with h/o CHRISTINA ( on CPAP mask, [facility]), obesity, GERD, family history with mother with hypertrophic cardiomyopathy diagnosed at age 43 and mother with premature CO at 45, seasonal allergies, anemia, is here [...] takes any statins. Previously:She was admitted to [facility]. 02/19/21-02/22/21 for pneumonia, COVID-19 negative, with resolution [...] RBC 4.65 HGB 11.9 HCT 35.3 PLT 70622 : MG 2.: Na 138 ,K 3.9 [...] : Car diac follow up dyspnea on [id number] year-old -[place] woman with h/o CHRISTINA ( on CPAP mask, [facility]), obesity, GERD, family history with mother with hypertrophic cardiomyopathy diagnosed at age 43 and mother with premature CO at 45, seasonal allergies, anemia, is here [...] resolved by itself. She was admitted to [facility]. 02/19/21-02/22/21 for pneumonia, COVID-19 negative, with resolution [...] not using CPAP, awaiting new mask with [facility] sleep clinic. She was in the ER [...] RBC 4.65 HGB 11.9 HCT 35.3 PLT 3294910/15/17 : MG 2.: Na 138 ,K 3.9 [...]
--- OUTSIDE RECORDS SUMMARY | 2024-12-14 10:18 | XMS_ITS | Encounter Summary ---
Author Organization [facility]/Health system Facility Care Team Providers Care Network Infrastructure Architect Name Role Phone Phillip Coker MD Primary Care Provider [phone] Antonio Baldwin Primary Care Provider Encounter Details Date Type Department Care Team (Latest Contact Info) Description 07/20/2017 Orders Only [facility] Provider, MD Pérez [address] [place] [address] Social History Tobacco Use Types Packs/Day Years Used Date Smoking Tobacco: Never Assessed Comments Unknown Sex and Gender Information Value Date Recorded Sex Assigned at Not on file Legal Sex Female 11:27 PM 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 10/15/2021 10/20/2021 02/12/2022 3:05 AM C DT COVID: Suspected 12/11/2021 12/11/2021 12/12/2021 12:07 AM JUNIOR UNDERWRITER COVID: Suspected 06/21/2023 06/21/2023 06/21/2023 3:30 PM CDT COVID: Suspected 06/21/2023 06/21/2023 06/21/2023 6:32 PM CDT documented as of this encounter Care Teams Network Infrastructure Architect Relationship Specialty Start Date End Date Phillip Coker MD PCP - General 12/30/18 06/30/22 Antonio Baldwin PA PCP - General Family Medicine 07/01/22 documented as of this encounter
--- OUTSIDE RECORDS SUMMARY | 2024-12-14 10:18 | XMS_ITS | Continuity of Care Document ---
Author Organization [facility] Address [address] [place] [address] Phone Care Team Providers Care Gun Fertilizer Name Role Phone Isis Calloway Unavailable Unavailable Allergies, Adverse Reactions, Alerts Substance Reaction Status Criticality Sulfa (Sulfonamide Antibiotics) Active No Information Medications Medication Instructions Dosage Effective Dates (start - stop) Status Comments fluticasone 50 mcg/actuation nasal spray,suspension spray 2 spray by intranasal route every day in each nostril 100 MCG - Active Claritin 10 mg tablet take 1 tablet by o ral route every day 10 MG - Active triamcinolone acetonide 0.1 % topical cream apply by topical route 2 times every day a thin layer to the affected area(s) 0.00 - Active Advance Directives Directive Yes / No Effective Date File Name No Information Encounters Encounter Description Practice Location Reason(s) For Visit Diagnoses Date Provider Providers Copied on Encounter [facility], [address], [place], [place], [id number], [place] tel:[phone] Delmi Allergy Allergic rhinitis due to pollenAllergic rhinitis due to dust miteAllergic rhinitis due to animal hair and danderAtopic dermatitis, unspecified atopic dermatitis 8 Fredy Marinelli . [address], [id number] , [place]. tel:[phone] Referring Provider: Phillip Coker [address] [place] [address] , [place], [address]. tel:[phone] Family History Family Member Type Diagnosis Age At Onset Father Problem (finding) Allergies Payers Payer name Insurance type Covered libertarian ID Rachael huerta(s) Maddy [facility] B[facility]EFITS CI [id number] Social History Type Description Quantity Date Captured Comments Alcohol Use Details Unknown Caffeine Use Details Unknown Tobacco Use Status No Information Smoking Status No Information Sex Female Vital Signs Date / Time: Height Weight BMI Pulse Rate Blood Pressure Temperature Respiratory Rate Body Surface Area Head Circumference Head Circ. Percentile Wt./Mehdi. Percentile BMI percentile Pulse Ox Inhaled Ox 9:36 AM 62.50 in 91.626 kg (202.00 lbs) 36.3 6 kg/m eter (2) 79 /min 122/83 mm[Hg] Chief Complaint And Reason For Visit No Information Reason For Referral Reason For Referral No Information History Of Present Illness Encounter Date Complaint History Of Prese nt Illness No Information Functional Status Date Functional Assessmen t No Information Instructions Date Instruction Additional Infor mation No Information Assessments Type Assessment Date No Information Patient Care Teams Name Effective Dates (start - stop) Status Members No Information
--- OUTSIDE RECORDS SUMMARY | 2024-12-14 10:18 | XMS_ITS | Encounter Summary ---
Author Organization [facility] Healthcare Address [address] [place] [address] Care Team Providers Care Director Of Philanthropy Name Role Phone Phillip Coker MD Primary Care Provider [phone] Antonio Baldwin Primary Care Provider [phone] Reason for Visit * Reason Onset Date Comments No Show 01/15/2022 I called patient and she states that she will be in attendance tomorrow for her next scheduled visit. 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
--- OUTSIDE RECORDS SUMMARY | 2024-12-14 10:18 | XMS_ITS | Clinical Summary ---
Author Organization [facility] Address [address] [place] [address] Care Team Providers Care Soda Fountain Operator Name Role Phone MiloJoyce sarabia LANNY Primary Care Provider [phone] Allergies Active Allergy Reactions Criticality Noted Date [...] 87.5 kg (193 lb) 09/01/2016 11:58 AM ENVIRONMENTAL PROTECTION ECONOMIST Height 154.9 cm (5' 1 ) 09/01/2016 11:58 AM ENVIRONMENTAL PROTECTION ECONOMIST Body Mass Index 36.47 09/01/2016 11:58 AM ENVIRONMENTAL PROTECTION ECONOMIST Plan of Treatment Health Maintenance Due Date [...] complete this topic Insurance DIGGS Care Teams Soda Fountain Operator Relationship Specialty Start Date End Date Joyce Pedraza NP [address] [place] [address] PCP - General NURSE PRACTITIONER 01/27/19
--- OUTSIDE RECORDS SUMMARY | 2024-12-14 10:18 | XMS_ITS | Continuity of Care Document ---
Author Organization [facility] Address [address] [place] [address] Phone Care Team Providers Care Figure Refinisher And Repairer Name Role Phone Moon Montenegro Unavailable Unavailable Procedures Procedure Date Eye Exam & Treatment Refraction No Charge Glasses Check Eye Exam & Treatment Refraction Eye Exam & Treatment Eye Exam & Treatment Advance Directives Directive Yes / No Effective Date File Name No Information Encounters Encounter Description Practice Location Reason(s) For Visit Diagnoses Date Provider Providers Copied on Encounter [facility], [address] [place] [address] [address], [place], [place], [id number], tel:[phone] [facility] No Information 7-201 0 Moni Mustafa. [address] , [address], [place], [place], [facility], . tel:[phone] [facility], [address] [place] [address] [address], [place], [place], [id number], [place] tel:[phone] [facility] No Information 4-201 0 Cruz OD Pastor. [address] , [address], [place], [place], [facility], . tel:[phone] [facility], [address] [place] [address] [address], [place], [place], [id number], tel:[phone] [facility] No Information 9 Moni Robbins [address] , [address], [place], [place], [facility], [place]. tel:[phone] [facility], [address] [place] [address] [address], [place], [place], [id number], [phone] [facility] No Information 8 Moni Robbins [address] , [address], [place], [place], [facility], [place]. tel:[phone] [facility], [address], [place], [place], [address], [place] tel:[phone] [facility] No Information 7 Moni Mustafa. [address] , [address], [place], [place], [facility], [place]. tel:[phone] Family History Family Member Type Diagnosis Age At Onset No Information Payers Payer name Insurance type Covered republican ID Authoriza tigianfranco(s) Medicaid [facility] [id number] Social History Type Description Quantity Date Captured Comments Sex Female Smoking Status No Information Chief Complaint And Reason For Visit No [...]
--- NOTE | 2024-12-14 11:42 | ED.EXTPRO ---
HPI - Extremity Problem General Chief complaint: Extremity Problem,Nontraumatic Stated complaint: wants a doppler on the L ankle, 5 weeks Time Seen by Provider: 12/14/24 10:18 History of Present Illness HPI Narrative: 29-year-old female he a history of GERD who is A1 currently approximately 5 weeks presents to the emergency department for intermittent lower abdominal cramping and edema to her left leg. Patient states a couple of days ago she began having some pain diffusely throughout her right leg, no edema. States that pain has resolved and now she is having swelling to her left ankle over the past day. Denies injury or trauma. She contacted her OBGYN, Dr. Ashley's office, and was going up an outpatient venous duplex, however she is having insurance issues and was advised to come to the ER. She denies injury or trauma to her left ankle. She is endorsing some pain to her calf. No history DVT. Denies chest pain or shortness of breath, lightheadedness or dizziness, syncope, hemoptysis, recent surgeries or hospitalizations. Patient is also reporting intermittent lower abdominal cramping. Denies vaginal bleeding or leakage of fluids, vaginal discharge, dysuria or hematuria, fever, nausea or vomiting. Related Data Home Medications ?Medication ?Instructions ?Recorded ?Confirmed ?Last Taken ?Type atogepant 10 mg tablet (Qulipta) 10 mg PO DAILY 06/09/24 06/09/24 Unknown History dulaglutide 0.75 mg/0.5 mL 0.75 mg subcut WEEKLY 06/09/24 06/09/24 Unknown History subcutaneous pen injector (Trulicity) Allergies Allergy/AdvReac Type Severity Reaction Status Date / Time Sulfa (Sulfonamide Allergy Mild Hives Verified 12/14/24 09:54 Antibiotics) Review of Systems Review of Systems: All systems reviewed & are unremarkable except as noted in HPI and below PMFSH Past Medical History Medical History Diabetes History of miscarriage Allergies Headache GERD (gastroesophageal reflux disease) Pneumonia Surgical History Surgical History History of section History of facial surgery lip surgery Family History Family History Other Cancer Diabetes mellitus Heart disease Hypertension Thyroid disorder Social History Social History Smoking status: Never smoker Second hand tobacco smoke exposure: No Alcohol intake: never Substance use: never Substance use type: does not use Lack of Transportation: No Lack of Food: Never True Current Housing: I Have Housing Concerned About Future Housing: No Difficulty Paying Gas/Electric Bills: No Difficulty Paying for Meds: No Currently Unemployed: No Education: High School Diploma/GED Difficulty w/ Childcare or Family Care: No Gender identity (if verbalized by the patient): Female Sexual Orientation (if Verbalized by the Patient): Straight or Heterosexual Spiritual care concerns: No Exam Narrative: GENERAL: Well-appearing, well-nourished, and in no acute distress. HEAD: Normocephalic, atraumatic. EYES: PERRLA and EOMI. ENT: Nares clear, no rhinorrhea or epistaxis. Mucous membranes moist. NECK: Supple. CHEST: Clear to auscultation. No respiratory distress. HEART: Regular rate and rhythm. No murmur heard. Normal peripheral pulses. ABDOMEN: Soft, nontender, nondistended, normal active bowel sounds. No rebound, guarding or rigidity. No CVA tenderness EXTREMITIES: Right lower extremity is largely negative Homans sign, no edema or skin changes, edema 2+ sensation intact. Left lower extremity with edema to the distal extremity and surrounding ankle, minimal tenderness to the lateral medial malleolus obvious deformity, full active his range of motion of ankle, DP pulse 2 +, sensation intact, no skin changes, positive Homans sign SKIN: Warm, dry, no rash. NEURO: No focal deficits. Alert and oriented x3 Course Vital Signs Vital signs: Vital Signs Temperature 97.6 F 12/14/24 09:23 Pulse Rate 92 12/14/24 09:23 Respiratory Rate 16 12/14/24 09:23 Blood Pressure 133/81 12/14/24 09:23 Pulse Oximetry 100 12/14/24 09:23 Temperature 97.6 F 12/14/24 09:23 Pulse Rate 81 12/14/24 12:45 Respiratory Rate 18 12/14/24 12:45 Blood Pressure 127/78 12/14/24 12:45 Pulse Oximetry 100 12/14/24 12:45 MDM - Extremity (Nontraumatic) MDM Narrative Medical decision making narrative: 29-year-old female who is reportedly approximately 5 weeks presents to the emergency department for DB to rule out, atraumatic left lower extremity edema and lower abdominal cramping. See HPI for further history. Triage vitals are stable. Exam is significant for the above. Will obtain bilateral lower extremity venous Dopplers, lab work, x-ray of the left ankle and pelvic ultrasound. CBC with nonspecific leukocytosis of 10.4, hemoglobin is 11.2 with a low MCV consistent with prior labs. Chemistries are unremarkable. UA with a contaminated sample with moderate squamous so as, 3-5 RBCs 1+ bacteriuria and having mucus. Rh factor positive. Ob ultrasound shows a 5 mm cyst in the endometrial complex which may be a gestational sac with estimated delivery date of 08/14/2025. Spontaneous ectopic are not excluded with recommendations for serial beta-hCGs. Patient did have an hCG drawn by her OBGYN yesterday which was 1161. Today hCG is 2090. Bilateral lower extremity venous duplex show evidence of DVT. X-ray of the left ankle shows no acute osseous abnormality or take your abnormality, mild diffuse soft tissue edema. Patient updated on results. Uncertain of the cause of her left lower extremity edema. There is no evidence of cellulitis or septic arthritis on exam. Patient was placed in Kev wrap to provide compression and advised to follow-up with her OBGYN and repeat venous duplex if symptoms persist. She is also advised to repeat beta quant in 48 hours and was given return precautions. Will start her on Keflex for asymptomatic bacteriuria . Return precautions discussed. She is agreeable with the plan verbalized understanding. Discharged in stable condition. Lab Data 12/14/24 11:46 12/14/24 11:46 Labs: Lab Results 12/14/24 12/14/24 Range/Units 11:41 11:46 WBC 10.4 H (4.5-10.0) K/mm3 RBC 4.58 (4.2-5.4) M/mm3 Hgb 11.2 L (12.0-15.0) g/dL Hct 35.6 L (37.0-47.0) % MCV 77.7 L (80-100) fl MCH 24.5 L (26-34) pg MCHC 31.5 L (32-36) g/dl RDW 16.6 H (11.5-14.5) % Plt Count 462 H (150-375) k/mm3 MPV 8.8 (7.4-10.4) fl Immature Gran % (Auto) 0.5 (0-0.5) % Neut % (Auto) 72.0 (45.5-73.1) % Lymph % (Auto) 20.7 (18.3-44.2) % [place] % (Auto) 6.0 (2.6-8.5) % Eos % (Auto) 0.7 (0-4.4) % Baso % (Auto) 0.1 L (0.2-1.2) % Lymph # (Auto) 2.15 (0.9-3.2) K/mm3 [place] # (Auto) 0.6 (0.1-0.6) K/mm3 Eos # (Auto) 0.1 (0-0.3) K/mm3 Baso # (Auto) 0.0 (0.0-0.1) K/mm3 Abs Immat Gran (auto) 0.05 H (0.00-0.031) K/mm3 Absolute Neuts (auto) 7.5 H (1.3-6.7) K/mm3 Absolute Nucleated RBC 0.000 (0.0-0.012) K/mm3 Nucleated RBC % 0.0 (0.0-0.2) % PT 14.0 (11.1-14.7) Seconds INR 1.0 APTT 23.9 (22.3-36.8) Seconds Sodium 137 (137-145) mmol/L Potassium 3.7 (3.4-5.0) mmol/L Chloride 102 (98-107) mmol/L Carbon Dioxide 25 (22-30) mmol/L Anion Gap 10 (4-12) mmol/L BUN 10 (7-17) mg/dL Creatinine 0.52 L (0.7-1.0) mg/dL Estim Creat Clear Calc 157 ml/min Estimated GFR > 60 (59 - ) Glucose 111 H (65-110) mg/dL Calcium 9.3 (8.4-10.2) mg/dL Total Bilirubin 0.5 (0.2-1.3) mg/dL AST 23 (14-36) U/L ALT 19 (6-35) U/L Alkaline Phosphatase 79 (38-126) U/L Total Protein 7.0 (6.3-8.2) g/dL Albumin 4.4 (3.5-5.1) g/dL Beta HCG, Quant 2090.10 mIU/ML Urine Color Dark yellow (Yellow) Urine Appearance Clear (Clear) Urine pH 5.5 (5.0-9.0) Ur Specific [place] 1.035 (1.001-1.035) Urine Protein Trace (Negative) mg/dL Urine Glucose (UA) Trace H (Negative) mg/dL Urine Ketones 1+ H (Negative) mg/dL Ur Blood (Man) Negative (Negative) Urine Nitrate Negative (Negative) Urine Bilirubin Negative (Negative) Urine Urobilinogen 1.0 (<2.0) mg/dL Leukocyte Esterase Rfl Negative (Negative) DIANA/UL Urine RBC 3-5 H (0-2) /hpf Urine WBC 0-5 (0-3) /hpf Ur Squamous Epith Cells Moderate H (Few) /hpf Urine Bacteria 1+ (None) /hpf Urine Mucus Heavy H /lpf POC Urine HCG, Qual Positive (Negative) Blood Type O Positive Antibody Screen Negative Screen Not Reportable Baby's Blood Type Not Reportable Baby's VAL Not Reportable Doses of RhIg Required 0 Discharge Plan Discharge Clinical Impression: Asymptomatic bacteriuria during , Edema of left ankle Patient Disposition: Home, Self-Care Condition: Stable Instructions: Antibiotic Form, Leg Edema (ED), Urinary Tract Infection in (ED) Additional Instructions: Your evaluated in the emergency department for lower abdominal cramping and and swelling to the left leg. An ultrasound showed no evidence of a blood clot in your leg and the x-ray shows no bony abnormalities. Please keep the leg wrapped with Kev wrap elevated and follow-up with your OBGYN as she may need a repeat ultrasound in 1 week if her symptoms persist. A obstetrics ultrasound shows a 5 mm cyst in your uterus which may be in early , however this cannot be confirmed given you are very early on in her and therefore we cannot rule out an ectopic as discussed. Your beta hCG today is 2090. You need to get this lab read checked in 48 hours by your traveling missionary to ensure it is appropriately increasing. You were also found have an abnormal urinalysis and was started on antibiotics. Please follow-up closely with her OBGYN. Return to the emergency department if you develop chest pain, shortness of breath, worsening swelling or pain your legs, vision changes, abdominal pain, vaginal bleeding or other concerning symptoms. Patient Language: Venezuelan Prescriptions: New cephalexin 500 mg capsule 500 mg PO Q6H Qty: 28 0RF No Action prednisone 50 mg tablet 50 mg PO DAILY Qty: 5 0RF Qulipta 10 mg tablet 10 mg PO DAILY Trulicity 0.75 mg/0.5 mL pen injector 0.75 mg subcut WEEKLY Follow-up/Referrals: Jeramie Ashley MD [Physician] - UNKNOWN,DOCTOR [Primary Care Provider] -
[2024-12-14 11:43] LABS: BEDSIDEPREGUCG Positive (Negative)
[2024-12-14 11:54] LABS: Basophils Percent Auto 0.1 % (0.2-1.2); Eosinophils Absolute Auto 0.1 K/mm3 (0-0.3); Eosinophils Percent Auto 0.7 % (0-4.4); Hematocrit 35.6 % (37.0-47.0); Hemoglobin 11.2 g/dL (12.0-15.0); Immature Granulocyte Absolute 0.05 K/mm3 (0.00-0.031); Immature Granulocyte Percent A 0.5 % (0-0.5); Lymphocytes Absolute Auto 2.15 K/mm3 (0.9-3.2); Lymphocytes Percent Auto 20.7 % (18.3-44.2); Mean Corpuscular HGB Conc 31.5 g/dl (32-36); Mean Corpuscular Hemoglobin 24.5 pg (26-34); Mean Corpuscular Volume 77.7 fl (80-100); Mean Platelet Volume 8.8 fl (7.4-10.4); Monocytes Absolute Auto 0.6 K/mm3 (0.1-0.6); Neutrophils Absolute Auto 7.5 K/mm3 (1.3-6.7); Platelet Count Result 462 k/mm3 (150-375); Red Blood Count 4.58 M/mm3 (4.2-5.4); Red Cell Distribution Width 16.6 % (11.5-14.5); White Blood Count 10.4 K/mm3 (4.5-10.0)
--- OUTSIDE RECORDS SUMMARY | 2024-12-14 11:57 | XMS_ITS | Encounter Summary ---
Author Organization [facility] Healthcare Address [address] [place] [address] Care Team Providers Care Volleyball Referee Name Role Phone Antonio Baldwin Primary Care Provider [phone] Reason for Visit * Reason Onset Date Comments Appointment Request 11/30/2024 Encounter Details Date Type Department Care Team (Late st Contact Info) Description 11/30/2024 Telephone [facility] Medical Group Family Medicine at [address] [place] [phone] Antonio Baldwin PA [address] [place] [id number] Appointment Request Social History Tobacco Use [...] on file Legal Sex Female 11:27 PM CONVERSION MAN Gender Identity Female 08/08/2021 9:31 AM CDT Sexual Orientation Straight 08/08/2021 9: 31 AM CDT documented as of this encounter Miscellaneous Notes * Telephone Encounter - Valerio Roque - 11/30/2024 5:00 PM CST I made patient aware ERSION MAN * Telephone Encounter - Alee Mario RN - 11/30/2024 4:12 PM CONVERSION MAN Her primary care md needs to remove sutures ERSION MAN * Telephone Encounter - Valerio Roque - 11/30/2024 4:06 PM CST Where can I put her? ERSION MAN * Telephone Encounter - Carmen Elkins - 11/30/2024 4:01 PM CST Appointment Request What visit type does the patient need? sutured removed from her right arm What is the reason for the visit? sutured removed from her right arm What is the reason we were unable to schedule the appointment? Patient stated she was seen by her Launch Check Out today on 11/30/24 and told to be seen by PCP office for suture removal. If applicable, were all members of the patient's PCP care team offered (e.g., nurse practioner(s), physician graduate teaching assistant(s)) ? Additional Comments: Patient called to schedule an appointment, please advise. Does message need to be routed? ERSION MAN documented in this encounter Plan of Treatment Not on file documented as of this encounter Visit Diagnoses Not on filedocumented in this encounter Care Teams Volleyball Referee Relationship Specialty Start Date End Date Antonio Baldwin PA PCP - General Family Medicine 07/01/22 documented as of this encounter
--- OUTSIDE RECORDS SUMMARY | 2024-12-14 11:57 | XMS_ITS | Clinical Summary ---
Author Organization [facility] Address [address] [place] [id number] Care Team Providers Care Production Team Member Name Role Phone MiloJoyce sarabia LANNY Primary Care Provider [phone] Allergies Active Allergy Reactions Criticality Noted Date [...] 87.5 kg (193 lb) 09/01/2016 11:58 AM PATIENT SCHEDULING COORDINATOR Height 154.9 cm (5' 1 ) 09/01/2016 11:58 AM PATIENT SCHEDULING COORDINATOR Body Mass Index 36.47 09/01/2016 11:58 AM PATIENT SCHEDULING COORDINATOR Plan of Treatment Health Maintenance Due Date [...] complete this topic Insurance DIGGS Care Teams Production Team Member Relationship Specialty Start Date End Date Joyce Pedraza NP [address] [place] [address] PCP - General NURSE PRACTITIONER 01/27/19
--- OUTSIDE RECORDS SUMMARY | 2024-12-14 11:57 | XMS_ITS | Clinical Summary ---
Author Organization [facility] [address] [facility] Address [address] [place] [address] Care Team Providers Care Chemical Unit Operator Name Role Phone Antonio Baldwin Primary Care Provider [phone] Allergies Active Allergy Reactions Criticality Noted Date [...] 02/01/2023 Assessment & Plan (09/24/2024 9:53 PM INCOME TAX PREPARER): Chronic uncontrolled Intolerant to metformin Start trulicity [...] Work on low carb diet Refer to english language learner tutor Order a1c in 3mo Dyspnea 12/23/2022 Left foot pain 12/23/2022 Overview (12/23/2022): COnt diclofenac Cont podiatry Intractable migraine with aura without status mi grainosus 10/07/2022 Assessment & Plan (09/24/2024 9:52 PM INCOME TAX PREPARER): Chronic stable and improving with quilipta. Continue [...] dosing Assessment & Plan (09/16/2023 4:00 PM INCOME TAX PREPARER): Chronic condition Start quilipta Assessment & Plan (10/07/2022 10:23 AM INCOME TAX PREPARER): Chronic uncontrolled Start quilipta Wrist sprain, right, [...] MRI Assessment & Plan (12/01/2021 12:34 PM INCOME TAX PREPARER): Chronic with worsening pain Refer to naresh lockwood and treat Snoring 06/11/2021 Daytime somnolence 06/11/2021 Parasomnia 06/11/2021 BMI 40.0-44.9, adult 06/11/2021 Assessment & Plan (12/01/2021 12:42 PM INCOME TAX PREPARER): Chronic condition not well controlled patient advised [...] 03/12/2021 Assessment & Plan (12/01/2021 12:42 PM INCOME TAX PREPARER): Chronic condition order labs for evaluation Eczema of both hands 02/17/2021 Assessment & Plan (02/01/2023 12:56 PM CDT): Chronic and not well controlled Refill triamcinolone. Assessment & Plan (10/07/2022 10:30 AM INCOME TAX PREPARER): Start triamcinolone tid prn hands Assessment & [...] 07/18/2020 Assessment & Plan (10/07/2022 10:31 AM INCOME TAX PREPARER): Refer to hematology Family history of hemoglobin [...] 07/26/2017 Assessment & Plan (10/07/2022 10:31 AM INCOME TAX PREPARER): Chronic Failed p.t. and xrays and nsaids [...] Only [facility] Dermatology [address] [facility] [address] [place] [phone] Blu Hayes MD 12/04/2024 Orders Only [facility] Dermatology [address] [facility] [address] [place] [address] Blu Hayes MD Rash (Primary Dx) 12/04/2024 Telephone [facility] [address] [place] [address] 4th Floor [address] [place] [address] Maya Granger Scheduling Appointments 11/30/2024 5:24 PM INCOME TAX PREPARER - 11/30/2024 11:59 PM INCOME TAX PREPARER Hospital Encounter [facility] [address] [place] [address] Discharge Disposition: Discharge to home or self care 11/30/2024 2:00 PM INCOME TAX PREPARER Office [facility] [address] [place] [address] 4th Floor [address] [place] [address] Blu Hayes MD Rash 11/30/2024 Orders Only [facility] [address] [place] [address] Blu Hayes MD Rash 11/30/2024 Telephone [facility] Family Medicine at [address] [place] [phone] Antonio Baldwin PA Appointment Request 10/24/2024 Telephone [facility] Family Medicine at [address] [place] [address] Antonio Baldwin PA 09/29/2024 Telephone [facility] Family Medicine at [address] [place] [address] Antonio Baldwin PA 09/25/2024 Telephone [facility] Family Medicine at [address] [place] [address] Antonio Baldwin PA Lab Results 09/23/2024 7:20 AM INCOME TAX PREPARER Lab [facility] [address] [place] [address] Accident caused by hypodermic needle, subsequent encounter; 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); Intractable migraine with aura without status migrainosus 09/16/2024 Patient Self-Triage [facility]/ Physicians [address] [place], [place] [id number] Mychart, Generic Provider from Last 3 Months [...] on file Legal Sex Female 11:27 PM INCOME TAX PREPARER Gender Identity Female 08/08/2021 9:31 AM CDT Sexual Orientation Straight 08/08/2021 9: 31 AM CDT Obstetrics History Last Filed Vital Signs Vital Sign Reading Time Taken Comments Blood Pressure 114/82 09/22/2024 11:36 AM INCOME TAX PREPARER Pulse 61 09/22/2024 11:36 AM INCOME TAX PREPARER Temperature 36.5 C (97.7 F) 09/22/2024 11:36 AM INCOME TAX PREPARER Respiratory Rate 18 09/22/2024 11:36 AM INCOME TAX PREPARER Oxygen Saturation 99% 09/22/2024 11:36 AM INCOME TAX PREPARER Inhaled Oxygen Concentration - - Weight 104.1 kg (229 lb 8 oz) 09/22/2024 11:36 A M INCOME TAX PREPARER Height 157.5 cm (5' 2 ) 09/22/2024 11:36 AM INCOME TAX PREPARER Body Mass Index 41.98 09/22/2024 11:36 AM INCOME TAX PREPARER Plan of Treatment Health Maintenance Due Date [...] SURGICAL PATHOLOGY Routine 11/30/2024 2: 33 PM INCOME TAX PREPARER Rash EGFR Routine 09/23/2024 7:24 AM INCOME TAX PREPARER 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) DIFFERENTIAL AUTO Routine 09/23/2024 7:2 4 AM INCOME TAX PREPARER 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) CBC WITH AUTO DIFFERENTIAL Routine 09/23/2024 7:24 AM INCOME TAX PREPARER 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) COMPREHENSIVE METABOLIC PANEL Routine 09/23/2024 7:24 AM INCOME TAX PREPARER 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) LIPID PANEL Routine 09/23/2024 7:24 AM INCOME TAX PREPARER 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) HEMOGLOBIN A1C Routine 09/23/2024 7:24 AM INCOME TAX PREPARER 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) HEPATITIS B SURFACE ANTIBODY (IMMUNE STATUS) Routine 09/23/2024 7:24 AM INCOME TAX PREPARER Accident caused by hypodermic needle, subsequent encounter HIV 1/2 ANTIBODY PLUS P24 ANTIGEN Routine 09/23/2024 7:24 AM INCOME TAX PREPARER Accident caused by hypodermic needle, subsequent encounter HEPATITIS C ANTIBODY Routine 09/23/2024 7:24 AM INCOME TAX PREPARER Accident caused by hypodermic needle, subsequent encounter ALBUMIN CREATININE RATIO, URINE Routine 09/23/2024 7:20 AM INCOME TAX PREPARER 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 - 12/05/2024 3:57 PM INCOME TAX PREPARER EPIC results best viewed via link to PDF [facility] [place] [address] Note to Patients: This report may contain [...] Gender: F : 1995 (Age: 29) Address: [address] [place] [address] Hospital #: [id number] Taken:11/30/2024 Received:11/30/2024 Reported: 12/05/2024 Patient Type: [facility] SPECIMEN Service: UNKNOWN Location: Physician(s): Blu [...] Department of Pathology and Immunology, [facility], [address] [place] [address], [address], [place] [address] CLIA # [id number] Sharonda Estevez M.D. History: The patient is [...] specimen is bisected. Labeled A1. Jar 0. [facility]11/30/2024 17:58 PA(s): Pamela Solis By this signature, I attest that the above diagnosis is based upon my personal examination of the slides(and/or other material). Addenda/Procedures The performance characteristics of some immunohistochemical stains, fluorescence in-situ hybridization tests and immunophenotyping by flow cytometry cited in this report (if any) were determined by the Surgical Pathology and Flow Cytometry Departments at [facility] as part of an ongoing water quality technician program and in compliance with [...] Surgical Pathology and Flow Cytometry Departments of [facility]. It has not been cleared or approved by the U. S. Food and Drug Administration. IMAGES AND SCANNED DOCUMENTS, IF INCLUDED, ONLY VIEWABLE IN PDF VERSION OF REPORT Blu Hayes MD LAB PATHOLOGY OR DERABLES Final Result PATHOLOGY [facility] 3rd Floor [place], [place] [phone] * eGFR (09/23/2024 7:24 AM INCOME TAX PREPARER) eGFR >90 >=60 mL/min/1. 73 m2 Comment: [...] last reviewed 2021. Blood 09/23/2024 7:24 AM INCOME TAX PREPARER 09/23/2024 9:41 AM INCOME TAX PREPARER Antonio BAPTISTE LAB BLOOD ORDERABLES Final Resu lt [facility] [address] [facility] Department [place] [address] * Differential, auto (09/23/2024 7:24 AM INCOME TAX PREPARER) Neutrophil abs 5.4 1.5 - 6.5 K/cumm Imm gran abs 0.0 0.0 - 0.1 K/cumm [facility] Lymphocyte abs 2.2 0.8 - 3.3 K/cumm [facility] Monocyte abs 0.4 0.2 - 0.8 K/cumm [facility] Eosinophil abs 0.1 0.0 - 0.5 K/cumm [facility] Basophil abs 0.0 0.0 - 0.1 K/cumm [facility] Neutrophil pct 66.1 % [facility] Comment: Interpretive Data Percent cell count reference ranges are not reported, since discordance with absolute values may lead to misinterpretation of CBC data. Current Interpretive Data was last revised on 2018. Imm gran pct 0.5 % [facility] Comment: Interpretive Data Percent cell count reference ranges are not reported, since discordance with absolute values may lead to misinterpretation of CBC data. Current Interpretive Data was last revised on 2018. Lymphocyte pct 26.8 % [facility] Comment: Interpretive Data Percent cell count reference ranges are not reported, since discordance with absolute values may lead to misinterpretation of CBC data. Current Interpretive Data was last revised on 2018. Monocyte pct 5.3 % [facility] Comment: Interpretive Data Percent cell count reference ranges are not reported, since discordance with absolute values may lead to misinterpretation of CBC data. Current Interpretive Data was last revised on 2018. Eosinophil pct 0.9 % [facility] Comment: Interpretive Data Percent cell count reference ranges are not reported, since discordance with absolute values may lead to misinterpretation of CBC data. Current Interpretive Data was last revised on 2018. Basophil pct 0.4 % [facility] Comment: Interpretive Data Percent cell count reference ranges are not reported, since discordance with absolute values may lead to misinterpretation of CBC data. Current Interpretive Data was last revised on 2018. Blood 09/23/2024 7:24 AM INCOME TAX PREPARER 09/23/2024 9:40 AM INCOME TAX PREPARER Antonio BAPTISTE LAB BLOOD ORDERABLES Final Resu lt Performing Organization Address [facility] Co de Phone Number LULA [address] [address] * HIV 1/2 Antibody plus p24 Antigen Blood (09/23/2024 7:24 AM INCOME TAX PREPARER) Pathologist [facility] HIV 1/2 ab + p24 ag Nonreactive Nonreactive Comment:Nonreactive for HIV- 1 antigen and HIV-1/HIV-2 antibodies. No laboratory evidence of HIV infection. If acute HIV infection is suspected, consider testing for HIV-1 RNA. Current interpretive data was last revised on 22. Blood 09/23/2024 7:24 AM INCOME TAX PREPARER 09/23/2024 9:41 AM INCOME TAX PREPARER us Antonio BAPTISTE LAB MICROBIOLOGY - GENERAL ORDE RABLES Final Result Performing Organization Address [facility] Co de Phone Number ABIG[address] [address] * (ABNORMAL) CBC with auto differential (09/23/2024 7:24 AM INCOME TAX PREPARER) [facility] WBC 8.2 3.8 - 9.9 K/cumm Hgb 11.0(L) 11.9 - 15.5 g/dL [facility] Hct 35.1(L) 35.6 - 45.5 % [facility] Plt 532(H) 150 - 400 K/cumm [facility] MPV 8.8(L) 9.1 - 12.3 fL [facility] RBC 4.57 3.90 - 5.20 M/cumm [facility] MCV 76.8(L) 81.3 - 96.4 fL [facility] MCH 24.1(L) 27.1 - 33.3 pg [facility] MCHC 31.3(L) 32.3 - 35.7 g/dL [facility] RDW CV 15.7(H) 11.1 - 14.9 % [facility] RDW SD 43.6 35.7 - 48.1 fL [facility] NRBC abs 0.00 0.00 - 0.01 K/cumm [facility] Blood 09/23/2024 7:24 AM INCOME TAX PREPARER 09/23/2024 9:40 AM INCOME TAX PREPARER Antonio BAPTISTE LAB BLOOD ORDERABLES Final Resu lt Performing Organization Address [facility] Co de Phone Number ABIGAIL[address] [employer] [place] [address] * Hepatitis C antibody Blood (09/23/2024 7:24 AM INCOME TAX PREPARER) Pathologist [facility] Hep C Ab Nonreactive Nonreactive Comment: Antibodies [...] revised on 2019. Blood 09/23/2024 7:24 AM INCOME TAX PREPARER 09/23/2024 9:41 AM INCOME TAX PREPARER Antonio BAPTISTE LAB MICROBIOLOGY - GENERAL ORDE RABLES Final Result Performing Organization Address [facility] de Phone Number [address] [place] [address] * Hepatitis B surface antibody (immune status) Blood (09/23/2024 7:24 AM INCOME TAX PREPARER) HBsAb (immune status) Reactive Comment: Interpretive Data [...] mIUnits/m L [facility] Blood 09/23/2024 7:24 AM INCOME TAX PREPARER 09/23/2024 9:41 AM INCOME TAX PREPARER Antonio BAPTISTE LAB MICROBIOLOGY - GENERAL ORDE [facility] Final Result Performing Organization Address [facility] de Phone Number [address] [address] * (ABNORMAL) Hemoglobin A1c (09/23/2024 7:24 AM INCOME TAX PREPARER) Hgb A1C 6.7(H) 4.0 - 5.6 % Estimated Average Glucose 146 mg/dL [facility] Comment: The ADA recommends reporting an estimated Average Glucose (eAG) with all Hemoglobin A1c results using the equation derived from a study of 507 normal and diabetic adults. Minority populations were underrepresented and children were not included. (Diabetes Care 31:9359-3750, 2008). The eAG is not equivalent to a fasting glucose. Blood 09/23/2024 7:24 AM INCOME TAX PREPARER 09/23/2024 9:40 AM INCOME TAX PREPARER Antonio BAPTISTE LAB BLOOD ORDERABLES Final Resu lt Performing Organization Address [facility] Co de Phone Number [address] [place] [address] * (ABNORMAL) Lipid panel (09/23/2024 7:24 AM INCOME TAX PREPARER) Pathologist [facility] Cholesterol 142 30 - 199 mg/dL Comment: [...] 2. NCEP Expert Panel. Circulation 2004;110:227 3. Olivre M et al. NELIA Cardiol. 2020 February 01;5(5):540-548. doi: 10.1001/jamacardio.2020.0013 Current Interpretive Data was last revised on 2024. Non-HDL Cholesterol 109 mg/dL [facility] Comment: Interpretive Data Ages < or [...] last revised on 2018. Chol/HDL ratio 4 [facility] Blood 09/23/2024 7:24 AM INCOME TAX PREPARER 09/23/2024 9:41 AM INCOME TAX PREPARER us Antonio BAPTISET LAB BLOOD ORDERABLES Final Resu lt [facility] [address] [facility] Department [place] [address] * (ABNORMAL) Comprehensive metabolic panel (09/23/2024 7:24 AM INCOME TAX PREPARER) Sodium 136 135 - 145 mmol/L Potassium, pl 3.9 3.3 - 4.9 mmol/L [facility] Chloride 103 97 - 110 mmol/L [facility] CO2 25 22 - 32 mmol/L [facility] Anion gap 8 2 - 15 mmol/L [facility] BUN 9 6 - 25 mg/dL [facility] Creatinine 0.58(L) 0.60 - 1.10 mg/dL [facility] Glucose 105 70 - 199 mg/dL [facility] Comment: Interpretive Data Fasting glucose >/= [...] 2022. Calcium 8.6 8.5 - 10.3 mg/dL [facility] Bilirubin, total 0.2 0.1 - 1.2 mg/dL [facility] Protein, pl 6.6 6.5 - 8.5 g/dL [facility] Albumin 3.8 3.5 - 5.0 g/dL [facility] Alk phos 71 40 - 130 Units/L [facility] ALT 11 7 - 45 Units/L [facility] AST 15 10 - 45 Units/L [facility] Blood 09/23/2024 7:24 AM INCOME TAX PREPARER 09/23/2024 9:41 AM INCOME TAX PREPARER us Antonio BAPTISTE LAB BLOOD ORDERABLES Final Resu lt Performing Organization Address [facility] de Phone Number [address] [place] [address] * Albumin Creatinine Ratio, Urine (09/23/2024 7:20 AM INCOME TAX PREPARER) Albumin Ur <12.0 mg/L Comment: Interpretive Data No reference range established. Current interpretive data was last revised 2019. Creatinine Ur 197.0 mg/dL [facility] Comment: Interpretive Data No reference range established. Current interpretive data was last revised 2019. Albumin Creatinine Ratio, Ur <6 1 - 29 mg/g [facility] Urine 09/23/2024 7:20 AM INCOME TAX PREPARER 09/23/2024 9:37 AM INCOME TAX PREPARER Antonio BAPTISTE LAB URINE ORDERABLES Final Resu lt Performing Organization Address [facility] Co de Phone Number [place] [id number] [facility] [place] [address] from Last 3 Months Insurance [facility] * Guarantor: [facility] [employer] Account Type Relation to Patient Date of Phone Billing Address Third Democrat Liability Other Care Teams Chemical Unit Operator Relationship Specialty Start Date End Date Antonio Baldwin PA PCP - General Family Medicine 07/01/22
--- OUTSIDE RECORDS SUMMARY | 2024-12-14 11:57 | XMS_ITS | Continuity of Care Document ---
Author Organization [facility] Address [address] [place] [address] Phone Care Team Providers Care Loss Prevention Leader Name Role Phone Isis Calloway Unavailable Unavailable [...] Diagnoses Date Provider Providers Copied on Encounter [employer] [facility] [address], [place], [place], [id number], [place] tel:[phone] Delmi Allergy Allergic rhinitis due to pollenAllergic rhinitis due to dust miteAllergic rhinitis due to animal hair and danderAtopic dermatitis, unspecified atopic dermatitis 8 Fredy Marinelli . [address], [id number] , [place]. tel:[phone] Referring Provider: Phillip Coker [address] [place] [address] , [place], [address]. tel:[phone] Family History Family Member Type Diagnosis Age At Onset Father Problem (finding) Allergies Payers Payer name Insurance type Covered constitution party ID Rachael huerta(s) Maddy [facility] BENEFITS CI [id number] Social History Type Description Quantity Date Captured [...]
--- OUTSIDE RECORDS SUMMARY | 2024-12-14 11:57 | XMS_ITS | Encounter Summary ---
Author Organization [facility] Care Team Providers Care Electric Motor Control Assembler Name Role Phone Phillip Coker MD Primary Care Provider [phone] Antonio Baldwin Primary Care Provider [phone] Encounter Details Date Type Department Care Team (Latest Contact Info) Description 07/20/2017 Orders Only [facility]INCON[facility] Provider, MD Pérez [address] [place] [address] Social History Tobacco Use Types Packs/Day Years Used Date Smoking Tobacco: Never Assessed Comments Unknown Sex and Gender Information Value Date Recorded Sex Assigned at Not on file Legal Sex Female 11:27 PM SCIENTIST/ENGINEER Gender Identity Female 08/08/2021 9:31 AM CDT [...] COVID: Suspected 09/01/2021 09/01/2021 09/02/2021 1:03 AM SCIENTIST/ENGINEER COVID: Suspected 10/01/2021 10/01/2021 10/02/2021 4:52 AM SCIENTIST/ENGINEER COVID19 10/01/2021 10/01/2021 10/15/2021 3:07 AM SCIENTIST/ENGINEER COVID: Recovered Comment:Added based on recent COVID infection. 10/15/2021 10/20/2021 02/12/2022 3:05 AM C DT COVID: Suspected 12/11/2021 12/11/2021 12/12/2021 12:07 AM SCIENTIST/ENGINEER COVID: Suspected 06/21/2023 06/21/2023 06/21/2023 3:30 PM CDT COVID: Suspected 06/21/2023 06/21/2023 06/21/2023 6:32 PM CDT documented as of this encounter Care Teams Electric Motor Control Assembler Relationship Specialty Start Date End Date Phillip Coker MD PCP - General 12/30/18 06/30/22 Antonio Baldwin PA PCP - General Family Medicine 07/01/22 documented as of this encounter
--- OUTSIDE RECORDS SUMMARY | 2024-12-14 11:57 | XMS_ITS | Referral Summary ---
Author Organization [facility] [address] [facility] Address [address] [place] [address] Care Team Providers Care Aviation Electrical Technician Name Role Phone Antonio Baldwin Primary Care Provider [phone] Encounters Date Type Department Care Team Description 12/06/2024 Orders Only [facility] [address] [place] [address] Outpatient Health [address] [place] [address] Blu Hayes MD 12/04/2024 Orders Only [facility] [address] [place] [address] [address] [place] [address] Blu Hayes MD Rash (Primary Dx) 12/04/2024 Telephone [facility] [address] [place] [address] 4th Floor [address] [place] [phone] Maya Granger Scheduling Appointments 11/30/2024 Orders Only [address] [address] Blu Hayes MD Rash 11/30/2024 5:24 PM REGIONAL AGRONOMIST - 11/30/2024 11:59 PM REGIONAL AGRONOMIST Hospital Encounter [address] [address] Discharge Disposition: Discharge to home or self care 11/30/2024 Telephone [facility] Family Medicine at [place] [address] [facility] [address] [place] [address] Antonio Baldwin PA Appointment Request 11/30/2024 2:00 PM REGIONAL AGRONOMIST Office Visit [facility] 4th Floor [address] [place] [address] Blu Hayes MD Rash 10/24/2024 Telephone [facility] Family Medicine at [address] [place] [address] Antonio Baldwin PA 09/29/2024 Telephone [facility] Family Medicine at [address] [place] [address] Antonio Baldwin PA 09/25/2024 Telephone [facility] Medicine at [address] [place] [address] Antonio Baldwin PA Lab Results 09/23/2024 7:20 AM REGIONAL AGRONOMIST Lab [facility] Lab [address] [place] [address] Accident caused by hypodermic needle, subsequent encounter; 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) 09/22/2024 10:30 AM REGIONAL AGRONOMIST Office Visit [facility] Medicine at [address] [place] [address] Antonio Baldwin PA Rash (Primary Dx); Accident caused by hypodermic needle, subsequent encounter; 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); Intractable migraine with aura without status migrainosus 09/16/2024 Patient Self-Triage [facility]/ Physicians [address] [place] [address] Mychart, Generic Provider from Last 3 Months [...] 02/01/2023 Assessment & Plan (09/24/2024 9:53 PM REGIONAL AGRONOMIST): Chronic uncontrolled Intolerant to metformin Start trulicity [...] Work on low carb diet Refer to swatch checker Order a1c in 3mo Dyspnea 12/23/2022 Left foot pain 12/23/2022 Overview (12/23/2022): COnt diclofenac Cont podiatry Intractable migraine with aura without status mi grainosus 10/07/2022 Assessment & Plan (09/24/2024 9:52 PM REGIONAL AGRONOMIST): Chronic stable and improving with quilipta. Continue [...] dosing Assessment & Plan (09/16/2023 4:00 PM REGIONAL AGRONOMIST): Chronic condition Start quilipta Assessment & Plan (10/07/2022 10:23 AM REGIONAL AGRONOMIST): Chronic uncontrolled Start quilipta Wrist sprain, right, [...] MRI Assessment & Plan (12/01/2021 12:34 PM REGIONAL AGRONOMIST): Chronic with worsening pain Refer to p.t. eval and treat Snoring 06/11/2021 Daytime somnolence 06/11/2021 Parasomnia 06/11/2021 BMI 40.0-44.9, adult 06/11/2021 Assessment & Plan (12/01/2021 12:42 PM REGIONAL AGRONOMIST): Chronic condition not well controlled patient advised [...] 03/12/2021 Assessment & Plan (12/01/2021 12:42 PM REGIONAL AGRONOMIST): Chronic condition order labs for evaluation Eczema of both hands 02/17/2021 Assessment & Plan (02/01/2023 12:56 PM CDT): Chronic and not well controlled Refill triamcinolone. Assessment & Plan (10/07/2022 10:30 AM REGIONAL AGRONOMIST): Start triamcinolone tid prn hands Assessment & [...] 07/18/2020 Assessment & Plan (10/07/2022 10:31 AM REGIONAL AGRONOMIST): Refer to hematology Family history of hemoglobin [...] 07/26/2017 Assessment & Plan (10/07/2022 10:31 AM REGIONAL AGRONOMIST): Chronic Failed p.t. and xrays and nsaids [...] on file Legal Sex Female 11:27 PM REGIONAL AGRONOMIST Gender Identity Female 08/08/2021 9:31 AM CDT Sexual Orientation Straight 08/08/2021 9: 31 AM CDT Last Filed Vital Signs Vital Sign Reading Time Taken Comments Blood Pressure 114/82 09/22/2024 11:36 AM REGIONAL AGRONOMIST Pulse 61 09/22/2024 11:36 AM REGIONAL AGRONOMIST Temperature 36.5 C (97.7 F) 09/22/2024 11:36 AM REGIONAL AGRONOMIST Respiratory Rate 18 09/22/2024 11:36 AM REGIONAL AGRONOMIST Oxygen Saturation 99% 09/22/2024 11:36 AM REGIONAL AGRONOMIST Inhaled Oxygen Concentration - - Weight 104.1 kg (229 lb 8 oz) 09/22/2024 11:36 A M REGIONAL AGRONOMIST Height 157.5 cm (5' 2 ) 09/22/2024 11:36 AM REGIONAL AGRONOMIST Body Mass Index 41.98 09/22/2024 11:36 AM REGIONAL AGRONOMIST Plan of Treatment Not on file Procedures Procedure Name Priority Date/Time Associated Diagnosis Comments SURGICAL PATHOLOGY Routine 11/30/2024 2: 33 PM REGIONAL AGRONOMIST Rash EGFR Routine 09/23/2024 7:24 AM REGIONAL AGRONOMIST 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) DIFFERENTIAL AUTO Routine 09/23/2024 7:2 4 AM REGIONAL AGRONOMIST 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) CBC WITH AUTO DIFFERENTIAL Routine 09/23/2024 7:24 AM REGIONAL AGRONOMIST 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) COMPREHENSIVE METABOLIC PANEL Routine 09/23/2024 7:24 AM REGIONAL AGRONOMIST 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) LIPID PANEL Routine 09/23/2024 7:24 AM REGIONAL AGRONOMIST 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) HEMOGLOBIN A1C Routine 09/23/2024 7:24 AM REGIONAL AGRONOMIST 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) HEPATITIS B SURFACE ANTIBODY (IMMUNE STATUS) Routine 09/23/2024 7:24 AM REGIONAL AGRONOMIST Accident caused by hypodermic needle, subsequent encounter HIV 1/2 ANTIBODY PLUS P24 ANTIGEN Routine 09/23/2024 7:24 AM REGIONAL AGRONOMIST Accident caused by hypodermic needle, subsequent encounter HEPATITIS C ANTIBODY Routine 09/23/2024 7:24 AM REGIONAL AGRONOMIST Accident caused by hypodermic needle, subsequent encounter ALBUMIN CREATININE RATIO, URINE Routine 09/23/2024 7:20 AM REGIONAL AGRONOMIST 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 - 12/05/2024 3:57 PM REGIONAL AGRONOMIST EPIC results best viewed via link to PDF [facility] [place] [address] Note to Patients: This report may contain [...] F : 1995 (Age: 29) Address: [address] [place] [address] Hospital #: [id number] Taken:11/30/2024 Received:11/30/2024 Reported: 12/05/2024 Patient Type: [facility] SPECIMEN Service: UNKNOWN Location: Physician(s): Blu [...] Dermatopathology Center, Department of Pathology and Immunology, [facility], [address] [place] [address], [address], [place] [address] CLIA # [id number] Sharonda Estevez M.D. History: The patient is [...] specimen is bisected. Labeled A1. Jar 0. [facility]/11/30/2024 17:58 PA(s): Pamela Solis By this signature, I attest that the above diagnosis is based upon my personal examination of the slides(and/or other material). Addenda/Procedures The performance characteristics of some immunohistochemical stains, fluorescence in-situ hybridization tests and immunophenotyping by flow cytometry cited in this report (if any) were determined by the Surgical Pathology and Flow Cytometry Departments at [facility] as part of an ongoing quality system manager program and in compliance with federally [...] Surgical Pathology and Flow Cytometry Departments of [facility]. It has not been cleared or approved by the U. S. Food and Drug Administration. IMAGES AND SCANNED DOCUMENTS, IF INCLUDED, ONLY VIEWABLE IN PDF VERSION OF REPORT Blu Hayes MD LAB PATHOLOGY OR DERABLES Final Result PATHOLOGY [facility] 3rd Floor [place], [place] [phone] * eGFR (09/23/2024 7:24 AM REGIONAL AGRONOMIST) eGFR >90 >=60 mL/min/1. 73 m2 Comment: [...] last reviewed 2021. Blood 09/23/2024 7:24 AM REGIONAL AGRONOMIST 09/23/2024 9:41 AM REGIONAL AGRONOMIST us Antonio BAPTISTE LAB BLOOD ORDERABLES Final Resu lt LULA [address] [facility] Department of Laboratories [place], [place] [id number] * Differential, auto (09/23/2024 7:24 AM REGIONAL AGRONOMIST) Neutrophil abs 5.4 1.5 - 6.5 K/cumm Imm gran abs 0.0 0.0 - 0.1 K/cumm [facility] Lymphocyte abs 2.2 0.8 - 3.3 K/cumm [facility] Monocyte abs 0.4 0.2 - 0.8 K/cumm [facility] Eosinophil abs 0.1 0.0 - 0.5 K/cumm [facility] Basophil abs 0.0 0.0 - 0.1 K/cumm [facility] Neutrophil pct 66.1 % [facility] Comment: Interpretive Data Percent cell count reference ranges are not reported, since discordance with absolute values may lead to misinterpretation of CBC data. Current Interpretive Data was last revised on 2018. Imm gran pct 0.5 % [facility] Comment: Interpretive Data Percent cell count reference ranges are not reported, since discordance with absolute values may lead to misinterpretation of CBC data. Current Interpretive Data was last revised on 2018. Lymphocyte pct 26.8 % [facility] Comment: Interpretive Data Percent cell count reference ranges are not reported, since discordance with absolute values may lead to misinterpretation of CBC data. Current Interpretive Data was last revised on 2018. Monocyte pct 5.3 % [facility] Comment: Interpretive Data Percent cell count reference ranges are not reported, since discordance with absolute values may lead to misinterpretation of CBC data. Current Interpretive Data was last revised on 2018. Eosinophil pct 0.9 % [facility] Comment: Interpretive Data Percent cell count reference ranges are not reported, since discordance with absolute values may lead to misinterpretation of CBC data. Current Interpretive Data was last revised on 2018. Basophil pct 0.4 % [facility] Comment: Interpretive Data Percent cell count reference ranges are not reported, since discordance with absolute values may lead to misinterpretation of CBC data. Current Interpretive Data was last revised on 2018. Blood 09/23/2024 7:24 AM REGIONAL AGRONOMIST 09/23/2024 9:40 AM REGIONAL AGRONOMIST us Antonio BAPTISTE LAB BLOOD ORDERABLES Final Resu lt LULA STEEL [address] [facility] [place] [address] * HIV 1/2 Antibody plus p24 Antigen Blood (09/23/2024 7:24 AM REGIONAL AGRONOMIST) [facility] HIV 1/2 ab + p24 ag Nonreactive Nonreactive Comment:Nonreactive for HIV- 1 antigen and HIV-1/HIV-2 antibodies. No laboratory evidence of HIV infection. If acute HIV infection is suspected, consider testing for HIV-1 RNA. Current interpretive data was last revised on 22. Blood 09/23/2024 7:24 AM REGIONAL AGRONOMIST 09/23/2024 9:41 AM REGIONAL AGRONOMIST us Antonio BAPTISTE LAB MICROBIOLOGY - [facility] Final Result Performing Organization Address City/[facility] Co de Phone Number [facility] [address] [facility] [place] [address] * (ABNORMAL) CBC with auto differential (09/23/2024 7:24 AM REGIONAL AGRONOMIST) [facility] WBC 8.2 3.8 - 9.9 K/cumm Hgb 11.0(L) 11.9 - 15.5 g/dL [facility] Hct 35.1(L) 35.6 - 45.5 % [facility] Plt 532(H) 150 - 400 K/cumm [facility] MPV 8.8(L) 9.1 - 12.3 fL [facility] RBC 4.57 3.90 - 5.20 M/cumm [facility] MCV 76.8(L) 81.3 - 96.4 fL [facility] MCH 24.1(L) 27.1 - 33.3 pg [facility] MCHC 31.3(L) 32.3 - 35.7 g/dL [facility] RDW CV 15.7(H) 11.1 - 14.9 % [facility] RDW SD 43.6 35.7 - 48.1 fL [facility] NRBC abs 0.00 0.00 - 0.01 K/cumm [facility] Blood 09/23/2024 7:24 AM REGIONAL AGRONOMIST 09/23/2024 9:40 AM REGIONAL AGRONOMIST Antonio BAPTISTE LAB BLOOD ORDERABLES Final Resu lt LULA [address] [facility] [place] [address] * Hepatitis C antibody Blood (09/23/2024 7:24 AM REGIONAL AGRONOMIST) Pathologist [facility] Hep C Ab [...] revised on 2019. Blood 09/23/2024 7:24 AM REGIONAL AGRONOMIST 09/23/2024 9:41 AM REGIONAL AGRONOMIST us Antonio BAPTISTE LAB MICROBIOLOGY - [facility] Final Result Performing Organization Address City/State/[facility] Co de Phone Number [facility] [address] [facility] [place] [address] * Hepatitis B surface antibody (immune status) Blood (09/23/2024 7:24 AM REGIONAL AGRONOMIST) [facility] HBsAb (immune status) Reactive Comment: Interpretive Data [...] HBsAb (immune status) index 76.8 mIUnits/m L [facility] Blood 09/23/2024 7:24 AM REGIONAL AGRONOMIST 09/23/2024 9:41 AM REGIONAL AGRONOMIST us Antonio BAPTISTE LAB MICROBIOLOGY - [facility]AL [place] Final Result Performing Organization Address [facility] de Phone Number [address] [address] * (ABNORMAL) Hemoglobin A1c (09/23/2024 7:24 AM REGIONAL AGRONOMIST) Hgb A1C 6.7(H) 4.0 - 5.6 % Estimated Average Glucose 146 mg/dL [facility] Comment: The ADA recommends reporting an estimated Average Glucose (eAG) with all Hemoglobin A1c results using the equation derived from a study of 507 normal and diabetic adults. Minority populations were underrepresented and children were not included. (Diabetes Care 31:2501-4815, 2008). The eAG is not equivalent to a fasting glucose. Blood 09/23/2024 7:24 AM REGIONAL AGRONOMIST 09/23/2024 9:40 AM REGIONAL AGRONOMIST Antonio BAPTISTE LAB BLOOD ORDERABLES Final Resu lt Performing Organization Address [facility] de Phone Number [address] [address] * (ABNORMAL) Lipid panel (09/23/2024 7:24 AM REGIONAL AGRONOMIST) [facility] Cholesterol 142 30 - 199 mg/dL Comment: [...] last revised on 2018. Chol/HDL ratio 4 [facility] Blood 09/23/2024 7:24 AM REGIONAL AGRONOMIST 09/23/2024 9:41 AM REGIONAL AGRONOMIST us Antonio BAPTISTE LAB BLOOD ORDERABLES Final Resu lt [facility] [address] [facility] [place] [address] * (ABNORMAL) Comprehensive metabolic panel (09/23/2024 7:24 AM REGIONAL AGRONOMIST) Sodium 136 135 - 145 mmol/L Potassium, pl 3.9 3.3 - 4.9 mmol/L [facility] Chloride 103 97 - 110 mmol/L [facility] CO2 25 22 - 32 mmol/L [facility] Anion gap 8 2 - 15 mmol/L [facility] BUN 9 6 - 25 mg/dL [facility] Creatinine 0.58(L) 0.60 - 1.10 mg/dL [facility] Glucose 105 70 - 199 mg/dL [facility] Comment: Interpretive Data Fasting glucose >/= 126 [...] 2022. Calcium 8.6 8.5 - 10.3 mg/dL [facility] Bilirubin, total 0.2 0.1 - 1.2 mg/dL [facility] Protein, pl 6.6 6.5 - 8.5 g/dL [facility] Albumin 3.8 3.5 - 5.0 g/dL [facility] Alk phos 71 40 - 130 Units/L [facility] ALT 11 7 - 45 Units/L [facility] AST 15 10 - 45 Units/L [facility] Blood 09/23/2024 7:24 AM REGIONAL AGRONOMIST 09/23/2024 9:41 AM REGIONAL AGRONOMIST us Antonio BAPTISTE LAB BLOOD ORDERABLES Final Resu lt Performing Organization Address [facility] Co de Phone Number L[facility] [address] [facility] [place] [address] * Albumin Creatinine Ratio, Urine (09/23/2024 7:20 AM REGIONAL AGRONOMIST) Albumin Ur <12.0 mg/L Comment: Interpretive Data No reference range established. Current interpretive data was last revised 2019. Creatinine Ur 197.0 mg/dL [facility] Comment: Interpretive Data No reference range established. Current interpretive data was last revised 2019. Albumin Creatinine Ratio, Ur <6 1 - 29 mg/g [facility] Urine 09/23/2024 7:20 AM REGIONAL AGRONOMIST 09/23/2024 9:37 AM REGIONAL AGRONOMIST us Antonio BAPTISTE LAB URINE ORDERABLES Final Resu lt Performing Organization Address [facility] Co de Phone Number LULA [address] [facility] [place] [address] from Last 3 Months Insurance [facility] * Guarantor: [employer] Account Type Relation to Patient Date of Phone Billing Address Third Constitution Party Liability Other Care Teams Aviation Electrical Technician Relationship Specialty Start Date End Date Antonio Baldwin PA PCP - General Family Medicine 07/01/22
--- OUTSIDE RECORDS SUMMARY | 2024-12-14 11:57 | XMS_ITS | Encounter Summary ---
Author Organization [facility] Facility Care Team Providers Care Associate Marketing Manager Name Role Phone Phillip Coker MD Primary Care Provider [phone] Antonio Baldwin Primary Care Provider [phone] Encounter Details Date Type Department Care Team (Latest Contact Info) Description 10/28/2018 Orders Only [facility] ProviderPérez MD [address] [place] [address] Social History Tobacco Use Types Packs/Day Years Used Date Smoking Tobacco: Never Assessed Comments Unknown Sex and Gender Information Value Date Recorded Sex Assigned at Not on file Legal Sex Female 11:27 PM DIRECT RESPONSE CONSULTANT Gender Identity Female 08/08/2021 9:31 AM CDT Sexual Orientation Straight 08/08/2021 9: 31 AM CDT documented as of this encounter Plan of Treatment Not on file documented as of this encounter Procedures Procedure Name Priority Date/Time Associated Diagnosis Comments CARDIOLOGY REPORT 10/28/2018 12: 00 AM DIRECT RESPONSE CONSULTANT documented in this encounter Results * CARDIOLOGY REPORT (10/28/2018 12:00 AM DIRECT RESPONSE CONSULTANT) Anatomical Region Laterality Modality Other Narrative 10/28/2018 12:00 AM DIRECT RESPONSE CONSULTANT Ordered by an unspecified provider. Historical Provider [facility] MARTHA HARDING Final Result documented in this encounter Visit Diagnoses Not on filedocumented in this encounter Additional Health Concerns Infection Onset Date Last Indicated Resolved Time COVID: Suspected 09/01/2021 09/01/2021 09/02/2021 1:03 AM DIRECT RESPONSE CONSULTANT COVID: Suspected 10/01/2021 10/01/2021 10/02/2021 4:52 AM DIRECT RESPONSE CONSULTANT COVID19 10/01/2021 10/01/2021 10/15/2021 3:07 AM DIRECT RESPONSE CONSULTANT COVID: Recovered Comment:Added based on recent COVID infection. 10/15/2021 10/20/2021 02/12/2022 3:05 AM C DT COVID: Suspected 12/11/2021 12/11/2021 12/12/2021 12:07 AM DIRECT RESPONSE CONSULTANT COVID: Suspected 06/21/2023 06/21/2023 06/21/2023 3:30 PM CDT COVID: Suspected 06/21/2023 06/21/2023 06/21/2023 6:32 PM CDT documented as of this encounter Care Teams Associate Marketing Manager Relationship Specialty Start Date End Date Phillip Coker MD PCP - General 12/30/18 06/30/22 Antonio Baldwin PA PCP - General Family Medicine 07/01/22 documented as of this encounter
--- OUTSIDE RECORDS SUMMARY | 2024-12-14 11:57 | XMS_ITS | Referral Summary ---
Author Organization [facility] Address [address] [facility] [place] [address] Care Team Providers Care Obstetric Assistant Name Role Phone Unavailable Primary Care Provider Unavailabl e Source Comments [facility],non-owned Affiliates and Associated Physician Practices is amultiple site organization consisting of ambulatory clinics and hospital sitesin [place], [place], [place]. This disclosure is being madepursuant to the Care Everywhere program and may not contain all information available regarding this patient. Last updated 18.[facility] Allergies No known active allergies Medications * Be aware that medications may not be up to date on this document. Alwaysverify current medications with the patient. Medication Sig Dispensed Refills Start Date End Date Status cetirizine (ZYRTEC) 10 MG tabletIndications:Aller gic rhinitis Take 1 Tab by mouth at bedtime. 30 3 01/14/2010 Active fluticasone propionate (FLUTICASONE PROPIONATE) 50 MCG/ACT nasal sprayIndications:Allerg ic rhinitis [place] 2 Sprays into each nostril daily. 1 [...]
--- OUTSIDE RECORDS SUMMARY | 2024-12-14 11:57 | XMS_ITS | Continuity of Care Document ---
Author Organization [facility] Address [address] [place] [address] Phone Care Team Providers Care Manager Portable Name Role Phone Moon Montenegro Unavailable Unavailable Procedures Procedure Date Eye Exam & Treatment Refraction No Charge Glasses Check Eye Exam & Treatment Refraction Eye Exam & Treatment Eye Exam & Treatment Advance Directives Directive Yes / No Effective Date File Name No Information Encounters Encounter Description Practice Location Reason(s) For Visit Diagnoses Date Provider Providers Copied on Encounter [facility], [address] [place] [address] [address], [place], [place], [id number], tel:[phone] [facility] No Information 7-201 0 Moni Mustafa. [address] , [address], [place], [place], [facility], . tel:[phone] [facility], [address] [place] [address] [address], [place], [place], [id number], [place] tel:[phone] [facility] No Information 4-201 0 Cruz OD Pastor. [address] , [address], [place], [place], [facility], . tel:[phone] [facility], [address] [place] [address] [address], [place], [place], [id number], tel:[phone] [facility] No Information 9 Moni Robbins [address] , [address], [place], [place], [facility], [place]. tel:[phone] [facility], [address] [place] [address] [address], [place], [place], [id number], [phone] [facility] No Information 8 Moni Robbins [address] , [address], [place], [place], [facility], [place]. tel:[phone] [facility], [address], [place], [place], [id number], [place] tel:[phone] [facility] No Information 7 Moni Mustafa. [address] [place] , [address], [place], [place], [facility], [place]. tel:[phone] Family History Family Member Type Diagnosis Age At Onset No Information Payers Payer name Insurance type Covered democrat ID Authoriza tigianfranco(s) Medicaid [facility] [id number] Social History Type Description Quantity Date Captured [...]
--- OUTSIDE RECORDS SUMMARY | 2024-12-14 11:57 | XMS_ITS | Clinical Summary ---
Author Organization [facility] Address [address] [place] [address] Care Team Providers Care Clinical Operations Specialist Name Role Phone Unavailable Primary Care Provider Unavailabl e Source Comments [facility],non-owned Affiliates and Associated Physician Practices is amultiple site organization consisting of ambulatory clinics and hospital sitesin [place], [place], [place] and [place]. This disclosure is being madepursuant to the Care Everywhere program and may not contain all informatio navailable regarding this patient. Last updated 18.[facility] [employer] Allergies No known active allergies Medications * Be aware that medications may not be up to date on this document. Alwaysverify current medications with the patient. Medication Sig Dispensed Refills Start Date End Date Status cetirizine (ZYRTEC) 10 MG tabletIndications:Aller gic rhinitis Take 1 Tab by mouth at bedtime. 30 3 01/14/2010 Active fluticasone propionate (FLUTICASONE PROPIONATE) 50 MCG/ACT nasal sprayIndications:Allerg ic rhinitis [place] 2 Sprays into each nostril daily. 1 [...]
--- OUTSIDE RECORDS SUMMARY | 2024-12-14 11:57 | XMS_ITS | Encounter Summary ---
Author Organization [facility] Healthcare Address [address] [place] [address] Care Team Providers Care Cap Machine Operator Name Role Phone Phillip Coker MD Primary Care Provider [phone] Antonio Baldwin Primary Care Provider [phone] Reason for Visit * Reason Onset Date Comments No Show 01/15/2022 I called patient and she states that she will be in attendance tomorrow for her next scheduled visit. Encounter Details Date Type Department Care Team (Late st Contact Info) Description 01/15/2022 Documentation [facility] OP Physical Therapy [facility] [address] [address] Arlene Albert, PT No Show [...] on file Legal Sex Female 11:27 PM DIRECTOR SPORTS Gender Identity Female 08/08/2021 9:31 AM CDT [...] documented as of this encounter Care Teams Cap Machine Operator Relationship Specialty Start Date End Date Phillip Coker MD PCP - General 12/30/18 06/30/22 Antonio Baldwin PA PCP - General Family Medicine 07/01/22 documented as of this encounter
--- OUTSIDE RECORDS SUMMARY | 2024-12-14 11:57 | XMS_ITS | Patient Health Summary ---
Author Organization [facility] Address [address] [place] [address] Care Team Providers Care Supervisor Metal [employer]iture [employer]ation Name Role Phone Unavailable Primary Care Provider Unavailabl e Note from [facility],non-owned Affiliates and Associated Physician Practices is amultiple site organization consisting of ambulatory clinics and hospital sitesin [place], [place], [place] and [place]. This disclosure is being madepursuant to the Care Everywhere program and may not contain all information available regarding this patient. Last updated 18.[facility] [employer] Allergies No known active allergies Medications * Be aware that medications may not be up to date on this document. Alwaysverify current medications with the patient. * cetirizine (ZYRTEC) 10 MG tablet(Started 01/14/2010) Take 1 Tab by mouth at bedtime. 3 refills left * fluticasone propionate (FLUTICASONE PROPIONATE) 50 MCG/ACT nasal spray(Started 01/14/2010) [place] 2 Sprays into each nostril daily. 3 [...]
[2024-12-14 12:07] LABS: Alanine Aminotransferase 19 U/L (6-35); Albumin Level 4.4 g/dL (3.5-5.1); Alkaline Phosphatase 79 U/L (38-126); Anion Gap 10 mmol/L (4-12); Aspartate Amino Transferase 23 U/L (14-36); Bilirubin,Total 0.5 mg/dL (0.2-1.3); Blood Urea Nitrogen 10 mg/dL (7-17); Calcium 9.3 mg/dL (8.4-10.2); Carbon Dioxide 25 mmol/L (22-30); Chloride 102 mmol/L (98-107); Estimated CRCL calculation 157 ml/min; Estimated Glomerular Filt Rate > 60; Glucose 111 mg/dL (65-110); Partial Thromboplastin Time 23.9 Seconds (22.3-36.8); Potassium 3.7 mmol/L (3.4-5.0); Sodium 137 mmol/L (137-145)
[2024-12-14 12:16] LABS: Add Urine Microscopic? YES; Appearance Urine Clear (Clear); Bilirubin Urine Negative (Negative); Blood Urine Negative (Negative); Color Urine Dark Yellow (Yellow); Glucose Urine UA Trace mg/dL (Negative); Ketones Urine 1+ mg/dL (Negative); Leukocyte Esterase Ur Negative LEU/UL (Negative); Nitrate Urine Negative (Negative); Protein Urine Trace mg/dL (Negative); Specific Grav Ur 1.035 (1.001-1.035); pH Urine 5.5 (5.0-9.0)
[2024-12-14 12:35] LABS: Mucus Urine Heavy /lpf
[2024-12-14 12:37] LABS: Squamous Epithelial Cell Urine Moderate /hpf (Few); WBC Urine 0-5 /hpf (0-3)
[2024-12-14 12:38] LABS: Bacteria Urine 1+ /hpf
== END 2024-12-14 14:35 | disposition home or self-care (01) ==
PROVIDERS: Emergency Provider Physician Assistant
DX: O26.891 Other specified pregnancy related conditions, first trimester (principal); R82.71 Bacteriuria; O12.01 Gestational edema, first trimester; O24.111 Pre-existing type 2 diabetes mellitus, in pregnancy, first trimester; O99.611 Diseases of the digestive system complicating pregnancy, first trimester; K21.9 Gastro-esophageal reflux disease without esophagitis; Z87.01 Personal history of pneumonia (recurrent); Z3A.01 Less than 8 weeks gestation of pregnancy; Z79.85 Long-term (current) use of injectable non-insulin antidiabetic drugs
CPT/HCPCS: 36415; 73610; 76801; 76817; 80053; 81001; 81025; 84702; 85025; 85461; 85610; 85730; 86850; 86900; 86901; 93970; 99284

== ENCOUNTER 2024-12-24 08:11 | Emergency (ER) | payer OTHER, SELFPAY ==
--- NOTE | 2024-12-24 08:17 | ED_ITS ---
HPI - Skin/Abscess/Foreign Bdy General Stated complaint: Stitches Removal Time Seen by Provider: 12/24/24 08:12 Source: patient Mode of arrival: ambulatory Limitations: no limitations History of Present Illness HPI narrative: Patient is a 29-year-old female who presents to have sutures removed. Patient had skin biopsy a dermatology office roughly 2 weeks ago and is unable to get back into the office for removal. Was told to come to urgent care. Denies any drainage, redness or pain to suture site. Reports there were 2 sutures Related Data Home Medications ?Medication ?Instructions ?Recorded ?Confirmed ?Last Taken ?Type atogepant 10 mg tablet (Qulipta) 10 mg PO DAILY 06/09/24 06/09/24 Unknown History dulaglutide 0.75 mg/0.5 mL 0.75 mg subcut WEEKLY 06/09/24 06/09/24 Unknown History subcutaneous pen injector (Trulicity) Allergies Allergy/AdvReac Type Severity Reaction Status Date / Time Sulfa (Sulfonamide Allergy Mild Hives Verified 12/14/24 09:54 Antibiotics) Review of Systems 2 Review of Systems: All systems reviewed & are unremarkable except as noted in HPI and below Constitutional: Constitutional: Denies body ache(s), Denies chills, Denies fatigue, Denies fever(s), Denies headache(s), Denies malaise and Denies weakness Eyes: Eyes: Denies blurry vision, Denies irritation and Denies loss of vision ENT: Denies otalgia, Denies headache(s), Denies nasal discharge, Denies sinus pain and Denies sore throat Cardiovascular: Cardiovascular: Denies chest pain, Denies irregular heart rhythm and Denies dyspnea Respiratory: Respiratory: Denies dyspnea Gastrointestinal: Gastrointestinal: Denies abdominal pain, Denies melena, Denies hematochezia, Denies diarrhea, Denies nausea and Denies vomiting Musculoskeletal: Musculoskeletal: Denies back pain, Denies myalgias and Denies arthralgias Integumentary/Breasts: Skin/Breast: Denies pruritus and Denies rash Neurologic: Denies headache(s), Denies loss of vision and Denies weakness Psychiatric: Psychiatric: Reports no additional psychiatric complaints Endocrine: Endocrine: Denies fatigue PMFSH Past Medical History Medical History Diabetes History of miscarriage Allergies Headache GERD (gastroesophageal reflux disease) Pneumonia Surgical History Surgical History History of section History of facial surgery lip surgery Family History Family History Other Cancer Diabetes mellitus Heart disease Hypertension Thyroid disorder Social History Social History Smoking status: Never smoker Second hand tobacco smoke exposure: No Alcohol intake: never Substance use: never Substance use type: does not use Lack of Transportation: No Lack of Food: Never True Current Housing: I Have Housing Concerned About Future Housing: No Difficulty Paying Gas/Electric Bills: No Difficulty Paying for Meds: No Currently Unemployed: No Education: High School Diploma/GED Difficulty w/ Childcare or Family Care: No Gender identity (if verbalized by the patient): Female Sexual Orientation (if Verbalized by the Patient): Straight or Heterosexual Spiritual care concerns: No Comments At time of signature, agree with nursing past medical, surgical, social and family history. There is no relevant family history pertinent to the presenting complaint. Exam 2 Const: General: cooperative, healthy appearing, comfortable, no acute distress and well nourished Nutritional Appearance: well nourished O rientation/consciousness: patient oriented x3 Limitations: no limitations HENMT: Head: normal to inspection, normocephalic and atraumatic Ears: h earing grossly normal bilaterally and external ears normal Face/Nose/Sinus: N ormal external nose present, normal facial exam and face symmetric Face and sinus: normal facial exam and face symmetric Mouth: Yes lip normal Eyes: General: appearance normal, both eyes and all related structures A lignment and Position: alignment normal and position normal Periorbital: p eriorbital findings normal Eyelids: eyelids normal Pupils: Equal, round and reactive pupils present EOM: EOMs intact bilaterally Neck: Neck: normal visual inspection, full ROM and supple Chest: Chest palpation & inspection: normal inspection of the chest Resp: Effort & Inspection: normal respiratory effort and able to speak in complete sentences Auscultation: clear to auscultation bilaterally Cardio: Rate: regular rate Rhythm: regular rhythm Heart sounds: S1 normal heart sound present and S2 normal heart sound present GI: Inspection: normal to inspection Skin: General skin exam: normal color and no rashes or lesions noted Full body images: 1. 2 sutures present Neuro: General: patient oriented x3 and moves all extremities Cranial nerves: Yes Equal, round and reactive pupils present Speech: normal speech Gait exam (Neuro): Normal gait present Extrem: General: normal to inspection, full ROM and no edema Psych: Appearance: grossly normal and well kempt Mental Status: mental status grossly normal Speech and movement: Normal speech and movement present Affect: normal affect Attitude: cooperative Thought process: Normal thought process present Course Course Emergency Course: Patient is aware of diagnosis, understands and agrees to treatment plan. Anticipatory guidance given. Patient agrees to follow-up as directed and is aware of reasons to seek care at the emergency department. Portions of this record may have been created with voice recognition software Level of Care: Express Care Visit Vital Signs Vital signs: Reviewed MDM - Skin/Abscess/Foreign Bdy MDM Narrative Medical decision making narrative: Are 2 sutures removed. Well-approximated with no drainage Pt well hydrated appearing, in no respiratory distress, hemodynamically stable. Recommend supportive care. The patient is stable at time of discharge the clinical impression was discussed and the patient was given the opportunity to ask questions, which were addressed as completely as possible given the information available at present. Anticipatory guidance and return to care precautions were discussed and the importance of primary care follow-up was stressed and encouraged. The patient voiced understanding of the plan, indications to return, and the need for follow-up. Exam findings show no acute concerns or changes Patient is appropriate for outpatient treatment and follow-up. Differential Diagnosis Differential diagnosis: Likely other (Suture removal) Medical Records Attestation: I reviewed the patient's medical records. Discharge Plan Discharge Clinical Impression: Visit for suture removal Patient Disposition: Home, Self-Care Condition: Stable Instructions: Stitches Removal (ED) Additional Instructions: After sutures are removed, keep your scar out of the sun. You may use OTC silicone pad and/or scar massage with ointment (for 10-15 min a day) after one month. Talk to your doctor if you think you are developing a keloid. Patient Language: Citizen Of [place] Prescriptions: No Action prednisone 50 mg tablet 50 mg PO DAILY Qty: 5 0RF Qulipta 10 mg tablet 10 mg PO DAILY Trulicity 0.75 mg/0.5 mL pen injector 0.75 mg subcut WEEKLY cephalexin 500 mg capsule 500 mg PO Q6H Qty: 28 0RF Follow-up/Referrals: Denny,OLIVA Alvarez [Primary Care Provider] - 3 Days Stand Alone Forms: Work/School Release IP Time of Disposition: 08:26
[2024-12-24 08:20] VITALS: BP 129/74; PULSE 78; RESP 16; TEMP 36.3; O2SAT 99
== END 2024-12-24 08:31 | disposition home or self-care (01) ==
PROVIDERS: Emergency Provider Nurse Practitioner Family; PCP Physician Assistant Medical
DX: Z48.02 Encounter for removal of sutures (principal); E11.9 Type 2 diabetes mellitus without complications; Z79.85 Long-term (current) use of injectable non-insulin antidiabetic drugs; K21.9 Gastro-esophageal reflux disease without esophagitis
CPT/HCPCS: 99211; G0463

== ENCOUNTER 2024-12-26 15:55 | Outpatient (CLI) | payer OTHER, SELFPAY ==
--- NOTE | ~2024-12-26 | US_ITS ---
EXAMINATION: US OB <=14 wk fetus w TV DATE: 12/26/2024 16:55 INDICATION: Personal history of complications TECHNIQUE: Real-time transabdominal and transvaginal obstetric ultrasound. FINDINGS: Ultrasound dated 12/14/2024 The uterus measures 5.8 x 6.3 x 9.7 cm. There is an intrauterine gestational sac, with pole aric ntified. The crown rump length measures 0.79 cm, which correlates with a estimated gestational age o f 6 weeks 5 days. heart tones are identified measuring 127. There is a possible involuting co rpus luteal cyst of the right ovary measuring 2.2 cm. The left ovary is unremarkable. No free fluid i n the pelvis. IMPRESSION: 1. SL IUP with an EGA of 6 weeks, 5 days (EDC by current ultrasound of 08/16/2025). Reviewed, dictated and finalized at location A. IMPRESSION: 1. SL IUP with an EGA of 6 weeks, 5 days (EDC by current ultrasound of 08/16/20).
--- OUTSIDE RECORDS SUMMARY | 2024-12-26 18:20 | XMS_ITS | Encounter Summary ---
Author Organization [facility] Healthcare Address [address] [place] [address] Care Team Providers Care Science Teacher Name Role Phone Antonio Baldwin Primary Care Provider [phone] Reason for Visit * Reason Onset Date Comments Appointment Request 11/30/2024 Encounter Details Date Type Department Care Team (Late st Contact Info) Description 11/30/2024 Telephone [facility] Family Medicine at [address] [place] [id number] Antonio Baldwin PA [address] [place] [address] Appointment Request Social History Tobacco Use [...] on file Legal Sex Female 11:27 PM SHELTER DIRECTOR Gender Identity Female 08/08/2021 9:31 AM CDT Sexual Orientation Straight 08/08/2021 9: 31 AM CDT documented as of this encounter Miscellaneous Notes * Telephone Encounter - Valerio Roque - 11/30/2024 5:00 PM CST I made patient aware TER DIRECTOR * Telephone Encounter - Alee Mario RN - 11/30/2024 4:12 PM SHELTER DIRECTOR Her form setter helper needs to remove sutures TER DIRECTOR * Telephone Encounter - Valerio Roque - 11/30/2024 4:06 PM CST Where can I put her? TER DIRECTOR * Telephone Encounter - Carmen Elkins - 11/30/2024 4:01 PM CST Appointment Request What visit type does the patient need? sutured removed from her right arm What is the reason for the visit? sutured removed from her right arm What is the reason we were unable to schedule the appointment? Patient stated she was seen by her Unix Manager today on 11/30/24 and told to be seen by PCP office for suture removal. If applicable, were all members of the patient's PCP care team offered (e.g., nurse practioner(s), physician instructional support assistant(s)) ? Additional Comments: Patient called to schedule an appointment, please advise. Does message need to be routed? TER DIRECTOR documented in this encounter Plan of Treatment Not on file documented as of this encounter Visit Diagnoses Not on filedocumented in this encounter Care Teams Science Teacher Relationship Specialty Start Date End Date Antonio Baldwin PA PCP - General Family Medicine 07/01/22 documented as of this encounter
--- OUTSIDE RECORDS SUMMARY | 2024-12-26 18:21 | XMS_ITS | Encounter Summary ---
Author Organization [facility] Healthcare Address [address] [place] [address] Care Team Providers Care Co Founder And President Name Role Phone Phillip Coker MD Primary Care Provider [phone] Antonio Baldwin Primary Care Provider [phone] Reason for Visit * Reason Onset Date Comments No Show 01/15/2022 I called patient and she states that she will be in attendance tomorrow for her next scheduled visit. Encounter Details Date Type Department Care Team (Late st Contact Info) Description 01/15/2022 Documentation [facility] OP Physical Therapy [facility] [address] [address] Arlene Albert, PT No Show [...] on file Legal Sex Female 11:27 PM TRAFFIC TECHNICIAN Gender Identity Female 08/08/2021 9:31 AM [...] documented as of this encounter Care Teams Co Founder And President Relationship Specialty Start Date End Date Phillip Coker MD PCP - General 12/30/18 06/30/22 Antonio Baldwin PA PCP - General Family Medicine 07/01/22 documented as of this encounter
--- OUTSIDE RECORDS SUMMARY | 2024-12-26 18:21 | XMS_ITS | Continuity of Care Document ---
Author Organization [facility] Address [address] [place] [address] Phone Care Team Providers Care Dye Machine Operator Name Role Phone Isis Calloway Unavailable Unavailable [...] Diagnoses Date Provider Providers Copied on Encounter [employer], [address], [place], [place], [id number], [place] tel:[phone] Delmi Allergy Allergic rhinitis due to pollenAllergic rhinitis due to dust miteAllergic rhinitis due to animal hair and danderAtopic dermatitis, unspecified atopic dermatitis [address] Marinelli . [address], [id number] , [place]. tel:[phone] Referring Provider: Phillip Coker [address] [place] [address] , [place], [address]. tel:[phone] Family History Family Member Type Diagnosis Age At Onset Father Problem (finding) Allergies Payers Payer name Insurance type Covered alliance party ID Rachael huerta(jessica) [facility] [id number] Social History Type Description Quantity Date Captured [...]
--- OUTSIDE RECORDS SUMMARY | 2024-12-26 18:21 | XMS_ITS | Encounter Summary ---
Author Organization [facility] Care Team Providers Care Napper Tender Name Role Phone Phillip Coker MD Primary Care Provider [phone] Antonio Baldwin Primary Care Provider [phone] Encounter Details Date Type Department Care Team (Latest Contact Info) Description 10/28/2018 Orders Only [facility] ProviderPérez MD [address] [place] [address] Social History Tobacco Use Types Packs/Day Years Used Date Smoking Tobacco: Never Assessed Comments Unknown Sex and Gender Information Value Date Recorded Sex Assigned at Not on file Legal Sex Female 11:27 PM BENCH WORKER Gender Identity Female 08/08/2021 9:31 AM CDT Sexual Orientation Straight 08/08/2021 9: 31 AM CDT documented as of this encounter Plan of Treatment Not on file documented as of this encounter Procedures Procedure Name Priority Date/Time Associated Diagnosis Comments CARDIOLOGY REPORT 10/28/2018 12: 00 AM BENCH WORKER documented in this encounter Results * CARDIOLOGY REPORT (10/28/2018 12:00 AM BENCH WORKER) Anatomical Region Laterality Modality Other Narrative 10/28/2018 12:00 AM BENCH WORKER Ordered by an unspecified provider. Historical Provider [facility] MARTHA HARDING Final Result documented in this encounter Visit Diagnoses Not on filedocumented in this encounter Additional Health Concerns Infection Onset Date Last Indicated Resolved Time COVID: Suspected 09/01/2021 09/01/2021 09/02/2021 1:03 AM BENCH WORKER COVID: Suspected 10/01/2021 10/01/2021 10/02/2021 4:52 AM BENCH WORKER COVID19 10/01/2021 10/01/2021 10/15/2021 3:07 AM BENCH WORKER COVID: Recovered Comment:Added based on recent COVID infection. 10/15/2021 10/20/2021 02/12/2022 3:05 AM C DT COVID: Suspected 12/11/2021 12/11/2021 12/12/2021 12:07 AM BENCH WORKER COVID: Suspected 06/21/2023 06/21/2023 06/21/2023 3:30 PM CDT COVID: Suspected 06/21/2023 06/21/2023 06/21/2023 6:32 PM CDT documented as of this encounter Care Teams Napper Tender Relationship Specialty Start Date End Date Phillip Coker MD PCP - General 12/30/18 06/30/22 Antonio Baldwin PA PCP - General Family Medicine 07/01/22 documented as of this encounter
--- OUTSIDE RECORDS SUMMARY | 2024-12-26 18:21 | XMS_ITS | Referral Summary ---
Author Organization [facility] [address] [facility] Address [address] [place] [address] Care Team Providers Care Content Management Consultant Name Role Phone Antonio Baldwin Primary Care Provider [phone] Encounters Date Type Department Care Team Description 12/19/2024 Telephone [facility] [address] [place] [address] Outpatient Health 4th Floor [address] [place] [address] Johana Estrella RN 12/06/2024 Orders Only [facility] Dermatology [address] [place] [address] [address] [place] [address] Blu Hayes MD 12/04/2024 Orders Only [facility] Dermatology [address] [place] [address] [address] [place] [address] Blu Hayes MD Rash (Primary Dx) 12/04/2024 Telephone [facility] [address] [place] [address] 4th Floor [address] [place] [address] Maya Granger Scheduling Appointments 11/30/2024 Orders Only [facility] [address] [place] [address] Blu Hayes MD Rash 11/30/2024 5:24 PM GRINDER SET UP OPERATOR INTERNAL - 11/30/2024 11:59 PM GRINDER SET UP OPERATOR INTERNAL Hospital Encounter [facility] [address] [place] [address] Discharge Disposition: Discharge to home or self care 11/30/2024 Telephone [facility] Family Medicine at [address] [place] [address] Antonio Baldwin PA Appointment Request 11/30/2024 2:00 PM GRINDER SET UP OPERATOR INTERNAL Office Visit [facility] 4th Floor [address] [place] [address] Blu Hayes MD Rash 10/24/2024 Telephone [facility] Family Medicine at [address] [place] [address] Antonio Baldwin PA 09/29/2024 Telephone [facility] Family Medicine at [address] [place] [address] Antonio Baldwin PA from Last 3 Months Allergies Active Allergy [...] skin every 7 days 2 mL 10/24/19 Active triamcinolone (KENALOG) 0.1 % ointment Apply topically 2 (two) times a day Apply thin layer to rash on back twice daily 80 g 1 12/07/19 Active Hospital, Clinic, or Other Facility Administered [...] 02/01/2023 Assessment & Plan (09/24/2024 9:53 PM GRINDER SET UP OPERATOR INTERNAL): Chronic uncontrolled Intolerant to metformin Start trulicity [...] Work on low carb diet Refer to heavy equipment technician Order a1c in 3mo Dyspnea 12/23/2022 Left foot pain 12/23/2022 Overview (12/23/2022): COnt diclofenac Cont podiatry Intractable migraine with aura without status mi grainosus 10/07/2022 Assessment & Plan (09/24/2024 9:52 PM GRINDER SET UP OPERATOR INTERNAL): Chronic stable and improving with quilipta. Continue [...] dosing Assessment & Plan (09/16/2023 4:00 PM GRINDER SET UP OPERATOR INTERNAL): Chronic condition Start quilipta Assessment & Plan (10/07/2022 10:23 AM GRINDER SET UP OPERATOR INTERNAL): Chronic uncontrolled Start quilipta Wrist sprain, right, [...] MRI Assessment & Plan (12/01/2021 12:34 PM GRINDER SET UP OPERATOR INTERNAL): Chronic with worsening pain Refer to pmichelle muelleral and treat Snoring 06/11/2021 Daytime somnolence 06/11/2021 Parasomnia 06/11/2021 BMI 40.0-44.9, adult 06/11/2021 Assessment & Plan (12/01/2021 12:42 PM GRINDER SET UP OPERATOR INTERNAL): Chronic condition not well controlled patient advised [...] 03/12/2021 Assessment & Plan (12/01/2021 12:42 PM GRINDER SET UP OPERATOR INTERNAL): Chronic condition order labs for evaluation Eczema of both hands 02/17/2021 Assessment & Plan (02/01/2023 12:56 PM CDT): Chronic and not well controlled Refill triamcinolone. Assessment & Plan (10/07/2022 10:30 AM GRINDER SET UP OPERATOR INTERNAL): Start triamcinolone tid prn hands Assessment & [...] 07/18/2020 Assessment & Plan (10/07/2022 10:31 AM GRINDER SET UP OPERATOR INTERNAL): Refer to hematology Family history of hemoglobin [...] 07/26/2017 Assessment & Plan (10/07/2022 10:31 AM GRINDER SET UP OPERATOR INTERNAL): Chronic Failed p.t. and xrays and nsaids [...] on file Legal Sex Female 11:27 PM GRINDER SET UP OPERATOR INTERNAL Gender Identity Female 08/08/2021 9:31 AM CDT Sexual Orientation Straight 08/08/2021 9: 31 AM CDT Last Filed Vital Signs Vital Sign Reading Time Taken Comments Blood Pressure 114/82 09/22/2024 11:36 AM GRINDER SET UP OPERATOR INTERNAL Pulse 61 09/22/2024 11:36 AM GRINDER SET UP OPERATOR INTERNAL Temperature 36.5 C (97.7 F) 09/22/2024 11:36 AM GRINDER SET UP OPERATOR INTERNAL Respiratory Rate 18 09/22/2024 11:36 AM GRINDER SET UP OPERATOR INTERNAL Oxygen Saturation 99% 09/22/2024 11:36 AM GRINDER SET UP OPERATOR INTERNAL Inhaled Oxygen Concentration - - Weight 104.1 kg (229 lb 8 oz) 09/22/2024 11:36 A M GRINDER SET UP OPERATOR INTERNAL Height 157.5 cm (5' 2 ) 09/22/2024 11:36 AM GRINDER SET UP OPERATOR INTERNAL Body Mass Index 41.98 09/22/2024 11:36 AM GRINDER SET UP OPERATOR INTERNAL Plan of Treatment Not on file Procedures Procedure Name Priority Date/Time Associated Diagnosis Comments SURGICAL PATHOLOGY Routine 11/30/2024 2: 33 PM GRINDER SET UP OPERATOR INTERNAL Rash HEPATITIS C ANTIBODY Routine 09/23/2024 7:24 AM GRINDER SET UP OPERATOR INTERNAL Accident caused by hypodermic needle, subsequent encounter EGFR Routine 09/23/2024 7:24 AM GRINDER SET UP OPERATOR INTERNAL 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) HEMOGLOBIN A1C Routine 09/23/2024 7:24 AM GRINDER SET UP OPERATOR INTERNAL 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) LIPID PANEL Routine 09/23/2024 7:24 AM GRINDER SET UP OPERATOR INTERNAL 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) ALBUMIN CREATININE RATIO, URINE Routine 09/23/2024 7:20 AM GRINDER SET UP OPERATOR INTERNAL 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) from Last 3 Months or Most Recently Relevant to Health Maintenance Results * Surgical pathology (11/30/2024 2:33 PM GRINDER SET UP OPERATOR INTERNAL) Tissue (Skin, biopsy) 11/30/2024 2:33 PM GRINDER SET UP OPERATOR INTERNAL 11/30/2024 4:18 PM GRINDER SET UP OPERATOR INTERNAL Narrative PATHOLOGY [facility] - 12/05/2024 3:57 PM GRINDER SET UP OPERATOR INTERNAL EPIC results best viewed via link to PDF [facility] [place] [address] Note to Patients: This report may contain [...] Gender: F : 1995 (Age: 29) Address: [address] [place] [id number] Hospital #: [id number] Taken:11/30/2024 Received:11/30/2024 Reported: 12/05/2024 Patient Type: [facility] SPECIMEN Service: UNKNOWN Location: Physician(s): Blu [...] and Immunology, [facility], [address] [place] [address], [address], [place] [address] CLIA # [id number] Sharonda Estevez M.D. History: The patient is [...] specimen is bisected. Labeled A1. Jar 0. [facility]11/30/2024 17:58 PA(s): Pamela Solis By this signature, I attest that the above diagnosis is based upon my personal examination of the slides(and/or other material). Addenda/Procedures The performance characteristics of some immunohistochemical stains, fluorescence in-situ hybridization tests and immunophenotyping by flow cytometry cited in this report (if any) were determined by the Surgical Pathology and Flow Cytometry Departments at [facility] as part of an ongoing senior quality control inspector program and in compliance with federally mandated [...] Surgical Pathology and Flow Cytometry Departments of [facility]. It has not been cleared or approved by the U. S. Food and Drug Administration. IMAGES AND SCANNED DOCUMENTS, IF INCLUDED, ONLY VIEWABLE IN PDF VERSION OF REPORT Blu Hayes MD LAB PATHOLOGY OR DERABLES Final Result PATHOLOGY [facility] 3rd Floor [place], [place] [phone] * eGFR (09/23/2024 7:24 AM GRINDER SET UP OPERATOR INTERNAL) eGFR >90 >=60 mL/min/1. 73 m2 Comment: [...] last reviewed 2021. Blood 09/23/2024 7:24 AM GRINDER SET UP OPERATOR INTERNAL 09/23/2024 9:41 AM GRINDER SET UP OPERATOR INTERNAL us Antonio BAPTISTE LAB BLOOD ORDERABLES Final Resu lt Performing Organization Address [facility] Co de Phone Number [facility] [address] [place] [address] * Hepatitis C antibody Blood (09/23/2024 7:24 AM GRINDER SET UP OPERATOR INTERNAL) Pathologist [facility] Hep C Ab Nonreactive Nonreactive Comment: Antibodies [...] revised on 2019. Blood 09/23/2024 7:24 AM GRINDER SET UP OPERATOR INTERNAL 09/23/2024 9:41 AM GRINDER SET UP OPERATOR INTERNAL us Antonio BAPTISTE LAB MICROBIOLOGY - GENERAL ORDE RABLES Final Result Performing Organization Address [facility] de Phone Number [facility] [address] [facility] [place] [address] * (ABNORMAL) Hemoglobin A1c (09/23/2024 7:24 AM GRINDER SET UP OPERATOR INTERNAL) Pathologist [facility] Hgb A1C 6.7(H) 4.0 - 5.6 % Estimated Average Glucose 146 mg/dL [facility] Comment: The ADA recommends reporting an estimated Average Glucose (eAG) with all Hemoglobin A1c results using the equation derived from a study of 507 normal and diabetic adults. Minority populations were underrepresented and children were not included. (Diabetes Care 31:1123-6459, 2008). The eAG is not equivalent to a fasting glucose. Blood 09/23/2024 7:24 AM GRINDER SET UP OPERATOR INTERNAL 09/23/2024 9:40 AM GRINDER SET UP OPERATOR INTERNAL Antonio BAPTISTE LAB BLOOD ORDERABLES Final Resu lt [facility] [address] [facility] Department [place] [address] * (ABNORMAL) Lipid panel (09/23/2024 7:24 AM GRINDER SET UP OPERATOR INTERNAL) Cholesterol 142 30 - 199 mg/dL Comment: [...] 4 [facility] Blood 09/23/2024 7:24 AM GRINDER SET UP OPERATOR INTERNAL 09/23/2024 9:41 AM GRINDER SET UP OPERATOR INTERNAL us Antonio BAPITSTE LAB BLOOD ORDERABLES Final Resu lt [facility] [address] [facility] Department [place] [address] * Albumin Creatinine Ratio, Urine (09/23/2024 7:20 AM GRINDER SET UP OPERATOR INTERNAL) Albumin Ur <12.0 mg/L Comment: Interpretive Data No reference range established. Current interpretive data was last revised 2019. Creatinine Ur 197.0 mg/dL [facility] Comment: Interpretive Data No reference range established. Current interpretive data was last revised 2019. Albumin Creatinine Ratio, Ur <6 1 - 29 mg/g [facility] Urine 09/23/2024 7:20 AM GRINDER SET UP OPERATOR INTERNAL 09/23/2024 9:37 AM GRINDER SET UP OPERATOR INTERNAL us Antonio BAPTISTE LAB URINE ORDERABLES Final Resu lt [facility] [address] [facility] Department [place] [address] from Last 3 Months or Most Recently Relevant to Health Maintenance Insurance [facility] * Guarantor: [facility] [employer] Account Type Relation to Patient Date of Phone Billing Address Third Alliance Party Liability Other Care Teams Content Management Consultant Relationship Specialty Start Date End Date Antonio Baldwin PA PCP - General Family Medicine 07/01/22
--- OUTSIDE RECORDS SUMMARY | 2024-12-26 18:21 | XMS_ITS | Clinical Summary ---
Author Organization [facility] Address [address] [place] [address] Care Team Providers Care Grants Analyst Name Role Phone Unavailable Primary Care Provider Unavailabl e Source Comments [facility],non-owned Affiliates and Associated Physician Practices is amultiple site organization consisting of ambulatory clinics and hospital sitesin [place], [place], [place] and [place]. This disclosure is being madepursuant to the Care Everywhere program and may not contain all informatio navailable regarding this patient. Last updated 18.[facility] Associated Material Processing Allergies No known active allergies Medications * Be aware that medications may not be up to date on this document. Alwaysverify current medications with the patient. Medication Sig Dispensed Refills Start Date End Date Status cetirizine (ZYRTEC) 10 MG tabletIndications:Aller gic rhinitis Take 1 Tab by mouth at bedtime. 30 3 01/14/2010 Active fluticasone propionate (FLUTICASONE PROPIONATE) 50 MCG/ACT nasal sprayIndications:Allerg ic rhinitis [place] 2 Sprays into each nostril daily. 1 [...]
--- OUTSIDE RECORDS SUMMARY | 2024-12-26 18:21 | XMS_ITS | Clinical Summary ---
Author Organization [facility] Address [address] [place] [address] Care Team Providers Care Mechanical Apprentice Name Role Phone MiloJoyce sarabia LANNY Primary Care Provider [phone] Allergies Active Allergy Reactions Criticality Noted Date [...] 87.5 kg (193 lb) 09/01/2016 11:58 AM FOOTWEAR SALES LEADER Height 154.9 cm (5' 1 ) 09/01/2016 11:58 AM FOOTWEAR SALES LEADER Body Mass Index 36.47 09/01/2016 11:58 AM FOOTWEAR SALES LEADER Plan of Treatment Health Maintenance Due Date [...] complete this topic Insurance DIGGS Care Teams Mechanical Apprentice Relationship Specialty Start Date End Date oJyce Pedraza NP [address] [place] [address] PCP - General NURSE PRACTITIONER 01/27/19
--- OUTSIDE RECORDS SUMMARY | 2024-12-26 18:21 | XMS_ITS | Encounter Summary ---
Author Organization [facility] Care Team Providers Care Edging Catcher Name Role Phone Phillip Coker MD Primary Care Provider [phone] Antonio Baldwin Primary Care Provider [phone] Encounter Details Date Type Department Care Team (Latest Contact Info) Description 07/20/2017 Orders Only [facility]INCON[facility] Provider, MD Pérez [address] [place] [address] Social History Tobacco Use Types Packs/Day Years Used Date Smoking Tobacco: Never Assessed Comments Unknown Sex and Gender Information Value Date Recorded Sex Assigned at Not on file Legal Sex Female 11:27 PM VALIDATION INTERN Gender Identity Female 08/08/2021 9:31 AM CDT [...] COVID: Suspected 09/01/2021 09/01/2021 09/02/2021 1:03 AM VALIDATION INTERN COVID: Suspected 10/01/2021 10/01/2021 10/02/2021 4:52 AM VALIDATION INTERN COVID19 10/01/2021 10/01/2021 10/15/2021 3:07 AM VALIDATION INTERN COVID: Recovered Comment:Added based on recent COVID infection. 10/15/2021 10/20/2021 02/12/2022 3:05 AM C DT COVID: Suspected 12/11/2021 12/11/2021 12/12/2021 12:07 AM VALIDATION INTERN COVID: Suspected 06/21/2023 06/21/2023 06/21/2023 3:30 PM CDT COVID: Suspected 06/21/2023 06/21/2023 06/21/2023 6:32 PM CDT documented as of this encounter Care Teams Edging Catcher Relationship Specialty Start Date End Date Phillip Coker MD PCP - General 12/30/18 06/30/22 Antonio Baldwin PA PCP - General Family Medicine 07/01/22 documented as of this encounter
--- OUTSIDE RECORDS SUMMARY | 2024-12-26 18:21 | XMS_ITS | Continuity of Care Document ---
Author Organization [facility] Address [address] [place] [address] Phone Care Team Providers Care Packaging Associate Name Role Phone Moon Montenegro Unavailable Unavailable Procedures Procedure Date Eye Exam & Treatment Refraction No Charge Glasses Check Eye Exam & Treatment Refraction Eye Exam & Treatment Eye Exam & Treatment Advance Directives Directive Yes / No Effective Date File Name No Information Encounters Encounter Description Practice Location Reason(s) For Visit Diagnoses Date Provider Providers Copied on Encounter [facility], [address] [place] [address] [address], [place], [place], [id number], tel:[phone] [facility] No Information [phone] 0 Moni Mustafa. [address] [facility] , [address], [place], [place], [facility], . tel:[phone] [facility], [address] [place] [address] [address], [place], [place], [id number], [place] tel:[phone] [facility] No Information [phone] Cruz OD Pastor. [address] , [address], [place], [place], [facility], . tel:[phone] [facility], [address] [place] [address] [address], [place], [place], [id number], tel:[phone] [facility] No Information 9 Moni Robbins [address] [facility] , [address], [place], [place], [facility], [place]. tel:[phone] [facility], [address] [place] [address] [address], [place], [place], [id number], [phone] [facility] No Information 8 Moni Robbins [address] [facility] , [address], [place], [place], [facility], [place]. tel:[phone] [facility], [address], [place], [place], [id number], [place] tel:[phone] [facility] No Information 7 Moni Mustafa. [address] [facility] [place] , [address], [place], [place], [facility], [place]. tel:[phone] Family History Family Member Type Diagnosis Age At Onset No Information Payers Payer name Insurance type Covered democrat ID Authoriza tigianfranco(s) Medicaid [facility] [id number] Social History Type Description Quantity Date Captured [...]
--- OUTSIDE RECORDS SUMMARY | 2024-12-26 18:21 | XMS_ITS | Clinical Summary ---
Author Organization [facility] [address] Address [address] [place] [address] Care Team Providers Care Review Nurse Name Role Phone Antonio Baldwin Primary Care Provider [phone] Allergies Active Allergy Reactions Criticality Noted Date [...] 02/01/2023 Assessment & Plan (09/24/2024 9:53 PM PLANNING SUPERVISOR): Chronic uncontrolled Intolerant to metformin Start trulicity [...] Work on low carb diet Refer to pharmacy district manager Order a1c in 3mo Dyspnea 12/23/2022 Left foot pain 12/23/2022 Overview (12/23/2022): COnt diclofenac Cont podiatry Intractable migraine with aura without status mi grainosus 10/07/2022 Assessment & Plan (09/24/2024 9:52 PM PLANNING SUPERVISOR): Chronic stable and improving with quilipta. Continue [...] dosing Assessment & Plan (09/16/2023 4:00 PM PLANNING SUPERVISOR): Chronic condition Start quilipta Assessment & Plan (10/07/2022 10:23 AM PLANNING SUPERVISOR): Chronic uncontrolled Start quilipta Wrist sprain, right, [...] MRI Assessment & Plan (12/01/2021 12:34 PM PLANNING SUPERVISOR): Chronic with worsening pain Refer to naresh lockwood and treat Snoring 06/11/2021 Daytime somnolence 06/11/2021 Parasomnia 06/11/2021 BMI 40.0-44.9, adult 06/11/2021 Assessment & Plan (12/01/2021 12:42 PM PLANNING SUPERVISOR): Chronic condition not well controlled patient advised [...] 03/12/2021 Assessment & Plan (12/01/2021 12:42 PM PLANNING SUPERVISOR): Chronic condition order labs for evaluation Eczema of both hands 02/17/2021 Assessment & Plan (02/01/2023 12:56 PM CDT): Chronic and not well controlled Refill triamcinolone. Assessment & Plan (10/07/2022 10:30 AM PLANNING SUPERVISOR): Start triamcinolone tid prn hands Assessment & [...] 07/18/2020 Assessment & Plan (10/07/2022 10:31 AM PLANNING SUPERVISOR): Refer to hematology Family history of hemoglobin [...] 07/26/2017 Assessment & Plan (10/07/2022 10:31 AM PLANNING SUPERVISOR): Chronic Failed p.t. and xrays and nsaids [...] Description 12/19/2024 Telephone [facility] 4th Floor [address] [place] [address] Johana Estrella RN 12/06/2024 Orders Only [facility] Dermatology [address] [place] [address] Outpatient Health [address] [place] [address] Blu Hayes MD 12/04/2024 Orders Only [facility] Dermatology [address] [place] [address] Health [address] [place] [address] Blu Hayes MD Rash (Primary Dx) 12/04/2024 Telephone [facility] [address] [place] [address] 4th Floor [address] [place] [address] Maya Granger Scheduling Appointments 11/30/2024 5:24 PM PLANNING SUPERVISOR - 11/30/2024 11:59 PM PLANNING SUPERVISOR Hospital Encounter [address] [address] Discharge Disposition: Discharge to home or self care 11/30/2024 2:00 PM PLANNING SUPERVISOR Office Visit [facility] [address] [place] [address] 4th Floor [address] [place] [address] Blu Hayes MD Rash 11/30/2024 Orders Only [address] [address] Blu Hayes MD Rash 11/30/2024 Telephone [facility] at [address] [place] [address] Antonio Baldwin PA Appointment Request 10/24/2024 Telephone [facility] at [address] [place] [address] Antonio Baldwin PA 09/29/2024 Telephone [facility] Medicine at [address] [place] [address] Antonio Baldwin PA from Last 3 Months Immunizations Immunization Administration [...] on file Legal Sex Female 11:27 PM PLANNING SUPERVISOR Gender Identity Female 08/08/2021 9:31 AM CDT Sexual Orientation Straight 08/08/2021 9: 31 AM CDT Obstetrics History Last Filed Vital Signs Vital Sign Reading Time Taken Comments Blood Pressure 114/82 09/22/2024 11:36 AM PLANNING SUPERVISOR Pulse 61 09/22/2024 11:36 AM PLANNING SUPERVISOR Temperature 36.5 C (97.7 F) 09/22/2024 11:36 AM PLANNING SUPERVISOR Respiratory Rate 18 09/22/2024 11:36 AM PLANNING SUPERVISOR Oxygen Saturation 99% 09/22/2024 11:36 AM PLANNING SUPERVISOR Inhaled Oxygen Concentration - - Weight 104.1 kg (229 lb 8 oz) 09/22/2024 11:36 A M PLANNING SUPERVISOR Height 157.5 cm (5' 2 ) 09/22/2024 11:36 AM PLANNING SUPERVISOR Body Mass Index 41.98 09/22/2024 11:36 AM PLANNING SUPERVISOR Plan of Treatment Health Maintenance Due Date [...] SURGICAL PATHOLOGY Routine 11/30/2024 2: 33 PM PLANNING SUPERVISOR Rash HEPATITIS C ANTIBODY Routine 09/23/2024 7:24 AM PLANNING SUPERVISOR Accident caused by hypodermic needle, subsequent encounter EGFR Routine 09/23/2024 7:24 AM PLANNING SUPERVISOR 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) HEMOGLOBIN A1C Routine 09/23/2024 7:24 AM PLANNING SUPERVISOR 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) LIPID PANEL Routine 09/23/2024 7:24 AM PLANNING SUPERVISOR 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) ALBUMIN CREATININE RATIO, URINE Routine 09/23/2024 7:20 AM PLANNING SUPERVISOR 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) from Last 3 Months or Most Recently Relevant to Health Maintenance Results * Surgical pathology (11/30/2024 2:33 PM PLANNING SUPERVISOR) Tissue (Skin, biopsy) 11/30/2024 2:33 PM PLANNING SUPERVISOR 11/30/2024 4:18 PM PLANNING SUPERVISOR Narrative PATHOLOGY [facility] - 12/05/2024 3:57 PM PLANNING SUPERVISOR EPIC results best viewed via link to PDF [facility] [place] [address] Note to Patients: This report may contain [...] Gender: F : 1995 (Age: 29) Address: [address] [place] [address] Hospital #: [id number] Taken:11/30/2024 Received:11/30/2024 Reported: 12/05/2024 Patient Type: [facility] SPECIMEN Service: UNKNOWN Location: Physician(s): Blu [...] Dermatopathology Center, Department of Pathology and Immunology, [facility], [address] [place] [address], [address], [place] [address] CLIA # [id number] Sharonda Estevez M.D. History: The patient is [...] Hospital as part of an ongoing quality management coordinator program and in compliance with federally mandated [...] ONLY VIEWABLE IN PDF VERSION OF REPORT [facility] Pamela Hayes MD LAB PATHOLOGY OR DERABLES Final Result PATHOLOGY [facility] 3rd Floor [place], [place] [phone] * eGFR (09/23/2024 7:24 AM PLANNING SUPERVISOR) eGFR >90 >=60 mL/min/1. 73 m2 Comment: [...] last reviewed 2021. Blood 09/23/2024 7:24 AM PLANNING SUPERVISOR 09/23/2024 9:41 AM PLANNING SUPERVISOR us Antonio BAPTISTE LAB BLOOD ORDERABLES Final Resu lt Performing Organization Address [facility] Co de Phone Number [facility] [address] [facility] [employer] [place], [place] [phone] * Hepatitis C antibody Blood (09/23/2024 7:24 AM PLANNING SUPERVISOR) Hep C Ab Nonreactive Nonreactive Comment: Antibodies [...] revised on 2019. Blood 09/23/2024 7:24 AM PLANNING SUPERVISOR 09/23/2024 9:41 AM PLANNING SUPERVISOR Antonio BAPTISTE LAB MICROBIOLOGY - GENERAL ORDE RABLES Final Result Performing Organization Address [facility] Co de Phone Number [facility] [address] [facility] [place] [address] * (ABNORMAL) Hemoglobin A1c (09/23/2024 7:24 AM PLANNING SUPERVISOR) Hgb A1C 6.7(H) 4.0 - 5.6 % Estimated Average Glucose 146 mg/dL [facility] Comment: The ADA recommends reporting an estimated Average Glucose (eAG) with all Hemoglobin A1c results using the equation derived from a study of 507 normal and diabetic adults. Minority populations were underrepresented and children were not included. (Diabetes Care 31:6349-8302, 2008). The eAG is not equivalent to a fasting glucose. Blood 09/23/2024 7:24 AM PLANNING SUPERVISOR 09/23/2024 9:40 AM PLANNING SUPERVISOR us Antonio BAPTISTE LAB BLOOD ORDERABLES Final Resu lt [facility] [address] [facility] Department [place] [address] * (ABNORMAL) Lipid panel (09/23/2024 7:24 AM PLANNING SUPERVISOR) Cholesterol 142 30 - 199 mg/dL Comment: [...] 2004;110:227 3. Oliver Roy al. NELIA Cardiol. 2019February 01;5(5):540-548. doi: 10.1001/[email or web address] [...] ratio 4 [facility] Blood 09/23/2024 7:24 AM PLANNING SUPERVISOR 09/23/2024 9:41 AM PLANNING SUPERVISOR us Antonio BAPTISTE LAB BLOOD ORDERABLES Final Resu lt Performing Organization Address [facility] Co de Phone Number [facility] [place] [address] * Albumin Creatinine Ratio, Urine (09/23/2024 7:20 AM PLANNING SUPERVISOR) Albumin Ur <12.0 mg/L Comment: Interpretive Data No reference range established. Current interpretive data was last revised 2019. Creatinine Ur 197.0 mg/dL [facility] Comment: Interpretive Data No reference range established. Current interpretive data was last revised 2019. Albumin Creatinine Ratio, Ur <6 1 - 29 mg/g [facility] Urine 09/23/2024 7:20 AM PLANNING SUPERVISOR 09/23/2024 9:37 AM PLANNING SUPERVISOR us Antonio BAPTISTE LAB URINE ORDERABLES Final Resu lt Performing Organization Address [facility] Co de Phone Number [facility] [address] [address] from Last 3 Months or Most Recently Relevant to Health Maintenance Insurance [facility] * Guarantor: [facility] [employer] Account Type Relation to Patient Date of Phone Billing Address Third Constitution Party Liability Other Care Teams Review Nurse Relationship Specialty Start Date End Date Antonio Baldwin PA PCP - General Family Medicine 07/01/22
--- OUTSIDE RECORDS SUMMARY | 2024-12-26 18:21 | XMS_ITS | Data Portability ---
Author Organization [place] - [facility] OFFICE Address [address] [place] [id number] Assessment Encounter Date Assessment Date Assessment LastModified by Organization Details LastModified Time 11/20/2020 11/20/2020 Discussed with patient findings, diagnosis, and prognosis. Discussed evaluation and treatment options including risks and benefits with patient, and patient expressed understanding. The following interventions were recommended: heart healthy low-fat, low-sodium diet, begin regular exercise,maintai n appropriate weight, continue current medications, and medical follow-up as noted. [email or web address] Not available 11/20/2020 11:12:34 03/12/2021 03/12/2021 Discussed with patient findings, diagnosis, and prognosis. Discussed evaluation and treatment options including risks and benefits with patient, and patient expressed understanding. The following interventions were recommended: heart healthy low-fat, low-sodium diet, begin regular exercise,maintai n appropriate weight, continue current medications, and medical follow-up as noted. [email or web address] Not available 03/12/2021 17:08:25 01/12/2023 01/12/2023 Patient [...] By Organization Details Last Modified Time 11/20/2020 [id number] When You Want to Lose Weight: Care Instructions [email or web address] Not available 11/20/2020 11:19:54 leg and ankle edema: care instructions [email or web address] Not available 11/20/2020 11:19:54 03/12/2021 [id number] When You Want to Lose Weight: Care Instructions [email or web address] Not available 03/12/2021 17:16:33 leg and ankle edema: care instructions [email or web address] Not available 03/12/2021 17:16:33 high cholesterol : care instructions [email or web address] Not available 03/12/2021 17:16:33 01/12/2023 27760 Exercise advised Low cholesterol diet advised Low sodium diet advised. [email or web address] Not available 01/12/2023 11:32:47 05/01/2023 67628 Exercise advised Low cholesterol diet advised Low [...] 1 view No observ ation record ed. [email or web address] Not Available 11/14 15:45:34 11/14/19 21 10/13/2020 elect rocar diogr am No observ ation record ed. [email or web address] Not Available 2020 14:35:10 12/03/19 21 11/14/2020 stres s echoc ardio gram No observ ation record ed. [email or web address] Not Available 2020 12:04:27 03/13/20 21 03/12/2021 elect rocar diogr am No observ ation record ed. [email or web address] Not Available 03/13 15:21:32 10/15/19 23 10/14/2022 [...] and Address Organization Details Recorded Time Hyperlipidemia 49234356 Active 2020 Chito Anabel [place], [place] - [facility] 16:57:12 Acute maxillary sinusitis 38693291 Active 2016 Alessanrda paiz, [place] - [facility] 7 14:50:19 Low back pain 465465738 Active 2016 Alessandra [place], [place] - [facility] 7 14:50:29 Chest pain 92546197 Active 2016 Aless[place], [place] - [facility] 7 14:50:41 Vitamin D deficiency 51477401 Active 2016 Aless[place], [place] - [facility] 7 14:51:18 Obstructive sleep apnea syndrome 85584086 Active 2016 Alessandra [place], [place] - [facility] 7 14:51:27 Snoring 83769196 Active 2016 Aless[place], [place] - [facility] 7 14:51:38 Fatigue 84892721 Active 2016 [place], [place] - [facility] 7 15:55:42 Palpitations 88022915 Active 2016 [place], [place] - [facility] 7 15:55:52 Headache 44664703 Active 2016 [place], [place] - [facility] 7 15:55:59 Increased blood pressure 14201396 Active 2016 Chito paiz [facility] 17:20:00 Edema of lower extremity 947311432 Active 2016 Chito paiz [facility] 7 17:32:02 Obesity 347836200 Active [address] [facility] 11:06:57 Problem Notes None recorded. Procedures Surgical History None recorded. Imaging Results Imaging Date Name Status LastModified by Organization Details LastModified Time 10/13/2020 electrocardiogram completed Informa tion not available 11/13/2020 12:10:27 10/13/2020 XR, chest, 1 view completed [email or web address] Informa tion not available 11/14/2020 15:45:34 10/13/2020 electrocardiogram completed Informa tion not available 11/19/2020 14:35:10 11/14/2020 stress echocardiogram completed [email or web address] Information not available 12/02/2020 12:04:27 03/12/2021 electrocardiogram completed [email or web address] Informa tion not available 03/13/2021 15:21:32 10/14/2022 [...] Not available Not available Not available 08/14/2017 78069 8003 SNOMED Vahe paiz [facility] 07:16:38 Medications Name Sig Start Date Stop [...] Updated DateTime 1 165.1 cm 35.4 kg/m2 67012.1 7 g 81 /min 18 /min 99 % 99 % 97.1 [degF] 108 mm[Hg] 78 mm[Hg] Krystal Dutta [facility] 1 10:49:24 Date Recorded Body height Body mass index (BMI) Body weight Body temperature Heart rate Oxygen saturation Oxygen saturation in Arterial blood by Pulse oximetry Systolic blood pressure Diastolic blood pressure Provider Name and Address Organization Details Last Updated DateTime 1 165.1 cm 36.1 kg/m2 95137.5 4 g 97.4 [degF] 73 /min 100 % 100 % 116 mm[Hg] 78 mm[Hg] KARLIE CALLE [facility] 1 15:49:42 Date Recorded Body height Body mass index (BMI) Body weight Heart rate Oxygen saturation Oxygen saturation in Arterial blood by Pulse oximetry Systolic blood pressure Diastolic blood pressure Provider Name and Address Organization Details Last Updated DateTime 3 165.1 cm 38.3 kg/m2 625526. 25 g 76 /min 99 % 99 % 127 mm[Hg] 75 mm[Hg] Ramila Lanier [facility] 3 15:06:27 Date Recorded Body height Body mass index (BMI) Body weight Oxygen saturation Oxygen saturation in Arterial blood by Pulse oximetry Heart rate Systolic blood pressure Diastolic blood pressure Provider Name and Address Organization Details Last Updated DateTime 3 165.1 cm 38.4 kg/m2 312640. 04 g 97 % 97 % 71 /min 114 mm[Hg] 80 mm[Hg] BALJINDER MARTIN [facility] 3 11:13:33 Date Recorded Body height Body mass index (BMI) Body weight Heart rate Oxygen saturation Oxygen saturation in Arterial blood by Pulse oximetry Systolic blood pressure Diastolic blood pressure Provider Name and Address Organization Details Last Updated DateTime 3 165.1 cm 38.3 kg/m2 347966. 25 g 61 /min 99 % 99 % 104 mm[Hg] 76 mm[Hg] Isaura Handy [facility] 3 10:33:09 Social History Question Answer Notes LastModified by Organizat ion Details LastModified Time Tobacco Smoking Status Never Smoker Not Available [facility] 08/06/2020 03:30:42 What Is Your Level Of Alcohol Consumption? None [id number] Information not available 08/06/2020 What Is Your Level Of Caffeine Consumption? Occasional [id number] Information not available 08/06/2020 How Much Tobacco Do You Chew? None [id number] Information not available 08/06/2020 What Type Of Diet Are You Following? REGULAR [id number] Information not available 08/06/2020 Which Illicit Or Recreational Drugs Have You Used? No [id number] Information not available 08/06/2020 Do You Or Have You Ever Used E-cigarettes Or Vape? Never Used Electronic Cigarettes [id number] Information not available 08/06/2020 What Is Your Occupation? [employer] [id number] Information not available 08/06/2020 Live Alone Or With Others? With Others [email or web address] Information not available 08/17/2017 Marital Status Single [email or web address] Informatio n not available 08/17/2017 What Was The Date Of Your Most Recent Tobacco Screening? 01/27/2019 [id number] Information not available 08/06/2020 How Many Children Do You Have? 1 [id number] Information not available 08/06/2020 Do You Or Have You Ever Used Smokeless Tobacco? Never Used Smokeless Tobacco [id number] Information not available 08/06/2020 How Much Tobacco Do You Smoke? No [id number] Information not available 08/06/2020 General Stress Level Low [email or web address] Information not available 08/17/2017 How Many Years Have You Smoked Tobacco? 0 [id number] Information not available 08/06/2020 Sex: Unknown Functional Status Question Answer Note LastModified by Organization D etails LastModified Time What is your exercise level? None [id number] Information not available 08/06/2020 Mental Status None [...] available 2016 07:16:28 Maternal Grandmother Heart disease [email or web address] Not available 2016 17:23:47 Mother Heart disease mother with no CAD; cardio myopat hy at age 43; Matern al grandm other' s sister with cardio myopat hy. [email or web address] Not available 08/17/2017 17:25:34 Mother Myocardial infarction 45 [email or web address] Not available 11/26 14:26:20 Mother Hypertensive disorder [email or web address] Not available 2016 16:01:24 Mother Heart failure [email or web address] Not available 2016 16:01:49 Maternal Uncle Diabetes mellitus [email or web address] Not available 2016 16:00:41 Maternal Uncle Hypertensive disorder [email or web address] Not available 2016 16:01:36 Maternal Uncle Cerebrovascu lar accident [email or web address] Not available 16:02:06 Paternal Grandmother Hypertensive disorder [email or web address] Not available 2016 16:01:29 Medical History Condition Response Hypertension Y Sleep Apnea Y Gynecological HistoryNo gynecological history recorded. Obstetrics History GPAL:G 0 P 0 0 0 0 Past Encounters Encounter ID Performer Location Encounter Start Date Encounter Closed Date Diagnosis/Indication Diagnosis SNOMED-CT Code Diagnosis ICD10 Code Diagnosis Note [id number] Chito Little [place] OFFICE [address] [place] [address] 08/17/2017 15:19:25 08/18/2017 09:47:10 Palpitations 91612788 R00.2 Infrequent but related to chest pain on occasion. 24 Hr Holter. Obtain TSH, BMP, Mg. Chest pain 18273549 R07. 9 Patient presents with {{chest* a [...] nitroglyce rin.}} Obstructiv e sleep apnea syndrome 88827249 G47.33 Pt has CHRISTINA and not using CPAP. Discussed in length importance of using CPAP and patient will retry. Increased blood pressure 91026430 R03.0 Blood pressure is elevated at home per patient report. Normal BP in office today. Will keep close follow up, and consider medication change if blood pressure is still elevated. BP diary. Edema of l ower extremity 726039762 R60.0 Occasional bilateral pedal edema, absent at present. Low sodium diet, 2gm/day. [id number] Chito Rowell Office [address] [place] [address] 11/26/2017 12:22:03 11/26/2017 14:36:25 Chest pain 47683417 R07.9 Resolved. Had SE 09/07/17 : Negative stress echo for ischemia. Has family history of premature [place]. Needs to keep LDL less than 70-100, and HDL more than 40. Had LDL 116 09/07/17. Not using statin since may want another child. 20 lb. weight loss recommende d over the next 2 months. Increase exercise. {{ Patient has been given a prescripti on for sublingual nitroglyce rin.}} Palpitations 29072175 R0 0.2 Resolved. Holter Monitor 09/07/17 : Unremarkab le Holter. No PAC's. No PVC's. NSR and sinus tachycardi a. Symptoms of chest pain associated with normal sinus rhythm. Obtained TSH, BMP, Mg (all normal 09/2017). Obstructiv e sleep apnea syndrome 16766415 G47.33 Pt has CHRISTINA and not using CPAP. Discussed in length importance of using CPAP and patient will retry. Increased blood pressure 45873839 R03.0 Blood pressure is elevated at home per patient report on occasion. Normal BP in office today and last visit. Will keep close follow up, and consider medication change if blood pressure is still elevated. BP diary. Edema of l ower extremity 842564328 R60.0 Occasional bilateral pedal edema, absent at present. Low sodium diet, 2gm/day. [id number] Rigo Ibanez MD [place] [facility] [address] [place] [address] 07/29/2018 11:11:29 07/29/2018 12:17:41 Chest pain 54423887 R07.9 Resolved. Had SE 09/07/17 : Negative stress echo for ischemia. Has family history of premature [place]. Needs to keep LDL less than 70-100, and HDL more than 40. Had LDL 116 09/07/17. Not using statin since may want another child. 20 lb. weight loss recommende d over the next 2 months. Increase exercise. {{ Patient has been given a prescripti on for sublingual nitroglyce rin.}} Palpitations 11998623 R0 0.2 Resolved. Holter Monitor 09/07/17 : Unremarkab le Holter. No PAC's. No PVC's. NSR and sinus tachycardi a. Symptoms of chest pain associated with normal sinus rhythm. Obtained TSH, BMP, Mg (all normal 09/2017). Obstructiv e sleep apnea syndrome 69218767 G47.33 Pt has CHRISTINA and not using CPAP. Discussed in length importance of using CPAP and patient will retry. Will order home sleep study. Increased blood pressure 78844080 R03.0 Blood pressure is elevated at home per patient report on occasion. Normal BP in office today and last visit. Will keep close follow up, and consider medication change if blood pressure is still elevated. BP diary. Edema of l ower extremity 501627204 R60.0 Occasional bilateral pedal edema, absent at present. Low sodium diet, 2gm/day. [id number] Rigo Ibanez MD [place] [facility] [address] [place] [address] 01/27/2019 10:13:07 01/27/2019 11:26:47 Chest pain 14137242 R07.9 Resolved.H ad SE 09/07/17 : Negative stress echo for ischemia{{ Patient has been given a prescripti on for sublingual nitroglyce rin.}} Palpitations 81923595 R0 0.2 Resolved. Holter Monitor 09/07/17 : Unremarkab le Holter. No PAC's. No PVC's. NSR and sinus tachycardi a. Symptoms of chest pain associated with normal sinus rhythm. Obtained TSH, BMP, Mg (all normal 09/2017). Obstructiv e sleep apnea syndrome 10531331 G47.33 Pt has CHRISTINA and not using CPAP. Discussed in length importance of using CPAP and patient will retry. Will order home sleep study. Increased blood pressure 30859638 R03.0 Well controlled . Edema of l ower extremity 273702448 R60.0 Occasional bilateral pedal edema, absent at present. Low sodium diet, 2gm/day. [id number] Allegra Ibrahim e Office [address] [place] [address] 12/14/2019 15:26:13 12/14/2019 16:05:59 Chest pain 56571943 R07.9 Resolved.H ad SE 09/07/17 : Negative stress echo for ischemia{{ Patient has been given a prescripti on for sublingual nitroglyce rin.}} Palpitations 78817098 R0 0.2 Resolved. Holter Monitor 09/07/17 : Unremarkab le Holter. No PAC's. No PVC's. NSR and sinus tachycardi a. Symptoms of chest pain associated with normal sinus rhythm. Obtained TSH, BMP, Mg (all normal 09/2017). Obstructiv e sleep apnea syndrome 67421310 G47.33 Pt has CHRISTINA and not using CPAP. Discussed in length importance of using CPAP and patient will retry. Will order home sleep study. Increased blood pressure 89923093 R03.0 Well controlled . Edema of l ower extremity 008854227 R60.0 Occasional bilateral pedal edema, absent at present. Low sodium diet, 2gm/day. Systolic murmur 56275557 R01.1 Noted on exam today. Likely physiologi c with . Had echo last year with possible mitral prolapse but otherwise no significan t valvular disease.Sh e has mild dyspnea. Will consider repeat echo if symptoms worsen. WIll see pt in follow up before her scheduled delivery in May. Dyspnea on exertion 6084 5006 R06.09 [id number] Allegra Rowell Office [address] [place] [address] 04/03/2020 15:39:01 04/03/2020 16:18:51 Systolic murmur 53470769 R01.1 Noted on exam today. Likely physiologi c with . echo with possible mitral prolapse but otherwise no significan t valvular disease.Sh e has stable dyspnea associate with Chest pain 61652654 R07. 9 Resolved.H ad SE 09/07/17 : Negative stress echo for ischemia{{ Patient has been given a prescripti on for sublingual nitroglyce rin.}} Palpitations 39474824 R0 0.2 Resolved. Holter Monitor 09/07/17 : Unremarkab le Holter. No PAC's. No PVC's. NSR and sinus tachycardi a. Symptoms of chest pain associated with normal sinus rhythm. Obtained TSH, BMP, Mg (all normal 09/2017). Obstructiv e sleep apnea syndrome 92054918 G47.33 Pt has CHRISTINA and not using CPAP. Discussed in length importance of using CPAP and patient will retry. Will order home sleep study. Increased blood pressure 33470244 R03.0 Well controlled . Edema of l ower extremity 437265840 R60.0 Occasional bilateral pedal edema, absent at present. Low sodium diet, 2gm/day. Dyspnea on exertion 6084 5006 R06.09 Family his tory of Cardiomyopathy 119617708 Z82.49 Echo last year with no hypertroph y. Repeat echo in 5 years. Consider genitic testing [id number] Aicha Newman [place] [facility] [address] [place] [address] 10/15/2020 16:15:07 10/15/2020 17:38:11 Systolic murmur 03147818 R01.1 Likely physiologi c with . echo with possible mitral prolapse but otherwise no significan t valvular disease.Sh e has stable dyspnea associate with Chest pain 69538078 R07. 9 ER visit Obta in stress Echo Had SE 09/07/17 : Negative stress echo for ischemia{{ Patient has been given a prescripti on for sublingual nitroglyce rin.}} Palpitations 03481763 R0 0.2 Resolved. Holter Monitor 09/07/17 : Unremarkab le Holter. No PAC's. No PVC's. NSR and sinus tachycardi a. Symptoms of chest pain associated with normal sinus rhythm. Obtained TSH, BMP, Mg (all normal 09/2017). Family his tory of Cardiomyopathy 973648038 Z82.49 Echo last year with no hypertroph y. Repeat echo in 5 years. Consider genitic testing Obstructiv e sleep apnea syndrome 52810668 G47.33 Pt has CHRISTINA and not using CPAP. Discussed in length importance of using CPAP and patient will retry. Edema of l ower extremity 895741184 R60.0 Occasional bilateral pedal edema, absent at present. Low sodium diet, 2gm/day. Dyspnea on exertion 6084 5006 R06.09 [id number] Chito Little [place] [facility] [address] [place] [address] 11/20/2020 10:42:05 11/20/2020 11:20:25 Systolic murmur 89826693 R01.1 Likely physiologi c with previously .Previousl y had echo with possible mitral prolapse but otherwise no significan t valvular disease. No MVP on echo in last 2 years since 10/2018. Chest pain 68040671 R07. 9 Atypical, resolved. [facility] ER visit 10/13/20 for upper central chest [...] prescripti on for sublingual nitroglyce rin.}} Palpitations 52135603 R0 0.2 Resolved. Holter Monitor 09/07/17 : Unremarkab le Holter. No PAC's. No PVC's. NSR and sinus tachycardi a. Symptoms of chest pain associated with normal sinus rhythm. Obtained TSH, BMP, Mg (all normal 09/2017). Family his tory of Cardiomyopathy 799561339 Z82.49 Echo recently with no hypertroph y. Repeat echo in 2 years. Consider genetic testing. Had stress echo 11/14/20: Negative stress echo for ischemia, mild exercise impairment . Had ECHO done in 10/14/18 showed normal global systolic function , EF 60-65% , mild tricuspid regurgitat ion. Sinus bradycardi a . Obtain FLP. Obstructiv e sleep apnea syndrome 65038614 G47.33 Pt has CHRISTINA and not using CPAP. Discussed in length importance of using CPAP and patient will retry pending receipt of new masks/stra ps. [facility]s with [facility]. Edema of l ower extremity 997595530 R60.0 Occasional bilateral pedal edema, absent at present. Low sodium diet, 2gm/day. Dyspnea on exertion 6084 5006 R06.09 Improved. Had stress echo 11/14/20: Negative stress echo for ischemia, mild exercise impairment . Had ECHO done in 10/14/18 showed normal global systolic function , EF 60-65% , mild tricuspid regurgitat ion. Sinus bradycardi a. Increase walking. Obesity 026408562 E66.9 20 lb. weight loss recommende d over the next 2 months. [id number] Chito Anabel [place] [facility] [address] [place] [address] 03/12/2021 15:37:27 03/12/2021 17:17:03 Systolic murmur 75699434 R01.1 Likely physiologi c with previously .Previousl y had echo with possible mitral prolapse but otherwise no significan t valvular disease. No MVP on echo in last 2 years since 10/2018. Chest pain 53450444 R07. 9 Atypical, resolved. Had [facility] ER visit 10/13/20 for upper central chest [...] prescripti on for sublingual nitroglyce rin.}} Palpitations 00010534 R0 0.2 Resolved. Holter Monitor 09/07/17 : Unremarkab le Holter. No PAC's. No PVC's. NSR and sinus tachycardi a. Symptoms of chest pain associated with normal sinus rhythm. Obtained TSH, BMP, Mg (all normal 09/2017). Obtain labs with PCP in 1-2 weeks. Family his tory of Cardiomyopathy 857948622 Z82.49 Echo recently with no hypertroph y. [...] for LVH. Obstructiv e sleep apnea syndrome 93989692 G47.33 Pt has CHRISTINA and not using CPAP. Discussed in length importance of using CPAP and patient will retry pending receipt of new masks/stra ps. Follows with [facility] sleep clinic and needs f/u for new CPAP equipment. Edema of l ower extremity 097294897 R60.0 Improved. Occasional bilateral pedal edema, absent at present. Low sodium diet, 2gm/day. Needs CPAP for CHRISTINA per [facility] sleep clinic. Dyspnea on exertion 6084 5006 R06.09 Improved. Had stress echo 11/14/20: Negative stress echo for ischemia, mild exercise impairment . Had ECHO done in 10/14/18 showed normal global systolic function , EF 60-65% , mild tricuspid regurgitat ion. Sinus bradycardi a. Increase walking. Obesity 430343816 E66.9 20 lb. weight loss recommende d over the next 2 months. Hyperlipidemia 40217807 E78.5 Had 03/04/21 LIPID: TC 173, HDL 43, TG 61, LDL 115 Needs to keep LDL less than 70-100, and HDL more than 40. Increase walking. Reduce fatty red meat and egg yolks. Given age and child-bear ing potential, avoiding statin at present and will work with dietary therapy. Repeat FLP in 6 mo. [id number] MD Patrice Calderón Office [address] [place] [address] 10/14/2022 14:41:04 10/14/2022 15:34:14 Systolic murmur 37393675 R01.1 Likely physiologi c with previously .Previousl y had echo with possible mitral prolapse but otherwise no significan t valvular disease. No MVP on echo in last 2 years since 10/2018. Chest pain 57667470 R07. 9 Atypical, resolved. [facility] ER visit 10/13/20 for upper central chest [...] prescripti on for sublingual nitroglyce rin.}} Palpitations 10606388 R0 0.2 Resolved. Holter Monitor 09/07/17 : Unremarkab le Holter. No PAC's. No PVC's. NSR and sinus tachycardi a. Symptoms of chest pain associated with normal sinus rhythm. Obtained TSH, BMP, Mg (all normal 09/2017). Obtain labs with PCP in 1-2 weeks. Family his tory of Cardiomyopathy 234656905 Z82.49 Echo recently with no hypertroph y. [...] for LVH. Obstructiv e sleep apnea syndrome 72072830 G47.33 Pt has CHRISTINA and not using CPAP. Discussed in length importance of using CPAP and patient will retry pending receipt of new masks/stra ps. Follows with [facility] sleep clinic and needs f/u for new CPAP equipment. Edema of l ower extremity 506012603 R60.0 Improved. Occasional bilateral pedal edema, absent [...] ion. Sinus bradycardi a. Increase walking. Obesity 853218907 E66.9 20 lb. weight loss recommende d over the next 2 months. Hyperlipidemia 12449526 E78.5 Had 03/04/21 LIPID: TC 173, HDL 43, TG 61, LDL 115 Needs to keep LDL less than 70-100, and HDL more than 40. Increase walking. Reduce fatty red meat and egg yolks. Given age and child-bear ing potential, avoiding statin at present and will work with dietary therapy. Repeat FLP in 6 mo. [id number] LAKESHIA DE LA O [place] [facility] [address] [place] [address] 01/12/2023 10:45:51 01/12/2023 11:53:26 Systolic murmur 66168603 R01.1 Likely physiologi c with previously .Previousl y had echo with possible mitral prolapse but otherwise no significan t valvular disease. No MVP on echo in last 2 years since 10/2018. Chest pain 30348652 R07. 9 Atypical, resolved. Had [facility] ER visit 10/13/20 for upper central chest [...] prescripti on for sublingual nitroglyce rin.}} Palpitations 40910287 R0 0.2 Resolved. Holter Monitor 09/07/17 : Unremarkab le Holter. No PAC's. No PVC's. NSR and sinus tachycardi a. Symptoms of chest pain associated with normal sinus rhythm. Obtained TSH, BMP, Mg (all normal 09/2017). Obtain labs with PCP in 1-2 weeks. Family his tory of Cardiomyopathy 628305169 Z82.49 Echo recently with no hypertroph y. [...] for LVH. Obstructiv e sleep apnea syndrome 58998071 G47.33 Pt has CHRISTINA and not using CPAP. Discussed in length importance of using CPAP and patient will retry pending receipt of new masks/stra ps. Follows with [facility] sleep clinic and needs f/u for new CPAP equipment. Edema of l ower extremity 033320282 R60.0 Improved. Occasional bilateral pedal edema, absent at present. Low sodium diet, 2gm/day. Needs CPAP for CHRISTINA per [facility] sleep clinic. Dyspnea on exertion 6084 5006 R06.09 will repeat Echo Had stress echo 11/14/20: Negative stress echo for ischemia, mild exercise impairment . Had ECHO done in 10/14/18 showed normal global systolic function , EF 60-65% , mild tricuspid regurgitat ion. Sinus bradycardi a. Increase walking. Obesity 972361262 E66.9 20 lb. weight loss recommende d over the next 2 months. Hyperlipidemia 61544230 E78.5 Had 03/04/21 LIPID: TC 173, HDL 43, TG 61, LDL 115 Needs to keep LDL less than 70-100, and HDL more than 40. Increase walking. Reduce fatty red meat and egg yolks. Given age and child-bear ing potential, avoiding statin at present and will work with dietary therapy. Repeat [facility] [address] [facility] [place] [facility] [address] [place] [address] 05/01/2023 09:57:33 05/01/2023 10:48:06 Systolic murmur 21522820 R01.1 Likely physiologi c with previously .Previousl y had echo with possible mitral prolapse but otherwise no significan t valvular disease. No MVP on echo in last 2 years since 10/2018. Chest pain 44667527 R07. 9 Atypical, resolved. Had [facility] visit 10/13/20 for upper central chest [...] prescripti on for sublingual nitroglyce rin.}} Palpitations 44633954 R0 0.2 Resolved. Holter Monitor 09/07/17 : Unremarkab le Holter. No PAC's. No PVC's. NSR and sinus tachycardi a. Symptoms of chest pain associated with normal sinus rhythm. Obtained TSH, BMP, Mg (all normal 09/2017). Obtain labs with PCP in 1-2 weeks. Family his tory of Cardiomyopathy [id number] Z82.49 Echo recently with no hypertroph y. [...] for LVH. Obstructiv e sleep apnea syndrome [id number] G47.33 Pt has CHRISTINA and not using CPAP. Discussed in length importance of using CPAP and patient will retry pending receipt of new masks/stra ps. Follows with [facility] sleep clinic and needs f/u for new CPAP equipment. Edema of l ower extremity [id number] R60.0 Resolved Occasional bilateral pedal edema, absent at present. Low sodium diet, 2gm/day. Needs CPAP for CHRISTINA per [facility] sleep clinic. Dyspnea on exertion 6084 5006 R06.09 resolved Had stress echo 11/14/20: Negative stress echo for ischemia, mild exercise impairment . Had ECHO done in 10/14/18 showed normal global systolic function , EF 60-65% , mild tricuspid regurgitat ion. Sinus bradycardi a. Increase walking. Obesity 741104461 E66.9 20 lb. weight loss recommende d over the next 2 months. Hyperlipidemia 32737289 E78.5 Had 03/04/21 LIPID: TC 173, HDL [...] Snyder Member ID Guarantor Name 11/20/2020 1 [facility] (MEDICAID HMO) [id number] 0003 Yenni Francois [id number] Yenni Francois 03/12/2021 1 [facility] (MEDICAID HMO) [id number] 0003 Yenni Francois [id number] Yenni Francois 10/14/2022 1 [facility] (MEDICAID HMO) [id number] 0003 Yenni Alessandro [id number] Yenni Francois 01/12/2023 1 [facility] (MEDICAID HMO) [id number] 0003 Yenni Francois [id number] Yenni Francois 05/01/2023 1 [facility] (MEDICAID HMO) [id number] 0003 Yenni Francois [id number] Yenni Francois Notes Date Note Type Note Provider Name and Address Organization Details Recorded Time 11/20/2020 text/html 11/20/20 CC: chest pain 25 year-old -[place]isian woman with h/o CHRISTINA (awaiting CPAP mask, [facility] Sleep [facility]), obesity, GERD, family history with mother with hypertrophic cardiomyopathy diagnosed at age 43 and mother with premature TN at 45, is here for follow. Giovanna [...] RBC 4.65 HGB 11.9 HCT 35.3 PLT 9995610/15/17 : MG 2.: Na 138 ,K 3.9 [...] follow up resolution is recommened Chito paiz [place] [facility] 11/20/2020 11:20:22 03/12/2021 text/html 03/12/21 CC: chest pain 26 year-old -Tunisian woman with h/o CHRISTINA (awaiting CPAP mask, [facility] Sleep Clinic), obesity, GERD, family history with mother with hypertrophic cardiomyopathy diagnosed at age 43 and mother with premature TN at 45, seasonal allergies, anemia, is here for follow. She was admitted to [facility] 02/19/21-02/22/21 for pneumonia, COVID-19 negative, with resolution of cough but persistent bilateral lower back pain. She had follow-up with PCP. She has not been vaccinated for COVID-19. Had [facility] ER visit 10/13/20 for upper central chest [...] not using CPAP, awaiting new mask with [facility] sleep clinic. She was in the [...] RBC 4.65 HGB 11.9 HCT 35.3 PLT 9965810/15/17 : MG 2.: Na 138 ,K 3.9 [...] follow up resolution is recommened Chito paiz [place] [facility] 03/12/2021 17:17:01 10/14/2022 text/html 10/14/22CC : Car diac follow up, dyspnea on [id number] year-old -[place]unisian woman with h/o CHRISTINA ( on CPAP mask, [facility]), obesity, GERD, family history with mother with hypertrophic cardiomyopathy diagnosed at age 43 and mother with premature TN at 45, seasonal allergies, anemia, is here [...] takes any statins. Previously:She was admitted to [facility] 02/19/21-02/22/21 for pneumonia, COVID-19 negative, with resolution of cough but persistent bilateral lower back pain. She had follow-up with PCP. She has not been vaccinated for COVID-19. Had [facility] visit 10/13/20 for upper central chest [...] not using CPAP, awaiting new mask with [facility] sleep clinic. She was in the [...] RBC 4.65 HGB 11.9 HCT 35.3 PLT 9122110/15/17 : MG 2.: Na 138 ,K 3.9 [...] up resolution is recommened Rigo Ibanez MD [address] [place], [address], [facility] 10/14/2022 15:28:26 01/12/2023 text/html 01/12/23CC : Car diac follow up dyspnea on [id number] year-old -[place]unisian woman with h/o CHRISTINA ( on CPAP mask, [facility]), obesity, GERD, family history with mother with hypertrophic cardiomyopathy diagnosed at age 43 and mother with premature TN at 45, seasonal allergies, anemia, is here [...] takes any statins. Previously:She was admitted to [facility]. 02/19/21-02/22/21 for pneumonia, COVID-19 negative, with [...] RBC 4.65 HGB 11.9 HCT 35.3 PLT 20506 : MG 2.: Na 138 ,K 3.9 [...] : Car diac follow up dyspnea on [id number] year-old -[place]unisian woman with h/o CHRISTINA ( on CPAP mask, [facility]), obesity, GERD, family history with mother with hypertrophic cardiomyopathy diagnosed at age 43 and mother with premature TN at 45, seasonal allergies, anemia, is here [...] resolved by itself. She was admitted to [facility]. 02/19/21-02/22/21 for pneumonia, COVID-19 negative, with [...] not using CPAP, awaiting new mask with [facility] sleep clinic. She was in the [...] RBC 4.65 HGB 11.9 HCT 35.3 PLT 5275510/15/17 : MG 2.: Na 138 ,K 3.9 [...]
== END 2024-12-26 15:56 | disposition home or self-care (01) ==
PROVIDERS: PCP Physician Assistant Medical; Visit Provider Nurse Practitioner Family
DX: Z34.91 Encounter for supervision of normal pregnancy, unspecified, first trimester (principal); Z87.59 Personal history of other complications of pregnancy, childbirth and the puerperium; Z3A.01 Less than 8 weeks gestation of pregnancy
CPT/HCPCS: 76801; 76817

== ENCOUNTER 2025-01-24 15:04 | Outpatient (CLI) | payer OTHER, SELFPAY ==
[2025-01-24 15:31] LABS: Hematocrit 35.4 % (37.0-47.0); Hemoglobin 11.2 g/dL (12.0-15.0); Mean Corpuscular HGB Conc 31.6 g/dl (32-36); Mean Corpuscular Hemoglobin 23.9 pg (26-34); Mean Corpuscular Volume 75.6 fl (80-100); Mean Platelet Volume 8.9 fl (7.4-10.4); Platelet Count Result 400 k/mm3 (150-375); Red Blood Count 4.68 M/mm3 (4.2-5.4); Red Cell Distribution Width 16.7 % (11.5-14.5); White Blood Count 11.2 K/mm3 (4.5-10.0)
[2025-01-24 15:36] LABS: Add Urine Microscopic? NO; Appearance Urine Clear (Clear); Bilirubin Urine Negative (Negative); Blood Urine Negative (Negative); Color Urine Yellow (Yellow); Glucose Urine UA 1+ mg/dL (Negative); Ketones Urine Trace mg/dL (Negative); Leukocyte Esterase Ur Negative LEU/UL (Negative); Nitrate Urine Negative (Negative); Protein Urine Negative (Negative); Specific Grav Ur 1.033 (1.001-1.035); pH Urine 5.5 (5.0-9.0)
--- OUTSIDE RECORDS SUMMARY | 2025-01-24 17:06 | XMS_ITS | Clinical Summary ---
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) 1 kit 4 (four) times a day 1 kit 01/06/20 25 Active blood glucose diagnostic (glucose blood) stripIndications:D M type 2 with diabetic dyslipidemia (HCC) One strip to check blood sugar before meals and at bedtime 400 each 1 01/06/20 25 026 Active lancets miscIndications: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) 1 each by other route 4 (four) times a day 400 each 1 01/06/20 25 Active insulin lispro (HumaLOG, ADMELOG) 100 unit/mL pen for injectionIndicatio ns: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) Four times daily per sliding scale Blood sugar 150-200 is 3 units, BS 201-250 is 6 units, BS 251-300 is 9 units, BS 301-350 is 12 units, BS 351-400 15 units, BS 401-500 20 units and call physician, 15 mL 5 01/09/20 25 Active insulin aspart (NovoLOG) 100 unit/mL (3 mL) pen for injectionIndicatio ns: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) Four times daily per sliding scale Blood sugar 150-200 is 3 units, BS 201-250 is 6 units, BS 251-300 is 9 units, BS 301-350 is 12 units, BS 351-400 15 units, BS 401-500 20 units and call physician 15 mL 5 01/06/20 25 025 Discontin ued(Alter steven therapy) Active Problems Problem Noted Date Diagnosed Date [...] 02/01/2023 Assessment & Plan (09/24/2024 9:53 PM DATA MODELING SPECIALIST): Chronic uncontrolled Intolerant to metformin Start trulicity [...] Work on low carb diet Refer to penology professor Order a1c in 3mo Dyspnea 12/23/2022 Left foot pain 12/23/2022 Overview (12/23/2022): COnt diclofenac Cont podiatry Intractable migraine with aura without status mi grainosus 10/07/2022 Assessment & Plan (09/24/2024 9:52 PM DATA MODELING SPECIALIST): Chronic stable and improving with quilipta. Continue [...] dosing Assessment & Plan (09/16/2023 4:00 PM DATA MODELING SPECIALIST): Chronic condition Start quilipta Assessment & Plan (10/07/2022 10:23 AM DATA MODELING SPECIALIST): Chronic uncontrolled Start quilipta Wrist sprain, right, [...] MRI Assessment & Plan (12/01/2021 12:34 PM DATA MODELING SPECIALIST): Chronic with worsening pain Refer to naresh lockwood and treat Snoring 06/11/2021 Daytime somnolence 06/11/2021 Parasomnia 06/11/2021 BMI 40.0-44.9, adult 06/11/2021 Assessment & Plan (12/01/2021 12:42 PM DATA MODELING SPECIALIST): Chronic condition not well controlled patient advised [...] 03/12/2021 Assessment & Plan (12/01/2021 12:42 PM DATA MODELING SPECIALIST): Chronic condition order labs for evaluation Eczema of both hands 02/17/2021 Assessment & Plan (02/01/2023 12:56 PM CDT): Chronic and not well controlled Refill triamcinolone. Assessment & Plan (10/07/2022 10:30 AM DATA MODELING SPECIALIST): Start triamcinolone tid prn hands Assessment & [...] 07/18/2020 Assessment & Plan (10/07/2022 10:31 AM DATA MODELING SPECIALIST): Refer to hematology Family history of hemoglobin [...] 07/26/2017 Assessment & Plan (10/07/2022 10:31 AM DATA MODELING SPECIALIST): Chronic Failed p.t. and xrays and nsaids [...] Encounters Date Type Department Care Team Description 01/08/[address] [facility] Medical [facility] Family Medicine at [address] [place] [address] Antonio Baldwin PA Novolog PA 01/08/[address] [facility] Family Medicine at [address] [place] [address] Antonio Baldwin PA PA for glucometer, test strips, lancets 12/29/[address] [facility] Family Medicine at [address] [place] [address] Antonio Baldwin PA Medication Request 12/19/2024 Telephone [facility] [address] [place] [address] Outpatient Health 4th Floor [address] [place] [address] Johana Estrella RN 12/06/2024 Orders Only [facility] Dermatology [address] [place] [address] Health [address] [place] [address] Blu Hayes MD 12/04/2024 Orders Only [facility] Dermatology [address] [facility] Health [address] [place] [address] Blu Hayes MD Rash (Primary Dx) 12/04/2024 Telephone [facility] [address] [place] [address] 4th Floor [address] [place] [address] Maya Granger Scheduling Appointments 11/30/2024 5:24 PM DATA MODELING SPECIALIST - 11/30/2024 11:59 PM DATA MODELING SPECIALIST Hospital Encounter [facility] [address] [place] [address] Discharge Disposition: Discharge to home or self care 11/30/2024 2:00 PM DATA MODELING SPECIALIST [facility] [address] [place] [address] 4th Floor [address] [place] [address] Blu Hayes MD Rash 11/30/2024 Orders Only [facility] [address] [place] [address] Blu Hayes MD Rash 11/30/[address] [facility] Family Medicine at [address] [place] [address] Antonio Baldwin PA Appointment Request from Last 3 Months Immunizations Immunization Administration [...] on file Legal Sex Female 11:27 PM DATA MODELING SPECIALIST Gender Identity Female 08/08/2021 9:31 AM CDT Sexual Orientation Straight 08/08/2021 9: 31 AM CDT Obstetrics History Last Filed Vital Signs Vital Sign Reading Time Taken Comments Blood Pressure 114/82 09/22/2024 11:36 AM DATA MODELING SPECIALIST Pulse 61 09/22/2024 11:36 AM DATA MODELING SPECIALIST Temperature 36.5 C (97.7 F) 09/22/2024 11:36 AM DATA MODELING SPECIALIST Respiratory Rate 18 09/22/2024 11:36 AM DATA MODELING SPECIALIST Oxygen Saturation 99% 09/22/2024 11:36 AM DATA MODELING SPECIALIST Inhaled Oxygen Concentration - - Weight 104.1 kg (229 lb 8 oz) 09/22/2024 11:36 A M DATA MODELING SPECIALIST Height 157.5 cm (5' 2 ) 09/22/2024 11:36 AM DATA MODELING SPECIALIST Body Mass Index 41.98 09/22/2024 11:36 AM DATA MODELING SPECIALIST Plan of Treatment Health Maintenance Due Date [...] SURGICAL PATHOLOGY Routine 11/30/2024 2: 33 PM DATA MODELING SPECIALIST Rash HEPATITIS C ANTIBODY Routine 09/23/2024 7:24 AM DATA MODELING SPECIALIST Accident caused by hypodermic needle, subsequent encounter EGFR Routine 09/23/2024 7:24 AM DATA MODELING SPECIALIST 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) HEMOGLOBIN A1C Routine 09/23/2024 7:24 AM DATA MODELING SPECIALIST 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) LIPID PANEL Routine 09/23/2024 7:24 AM DATA MODELING SPECIALIST 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 [place] [address] Note to Patients: This report may contain [...] Gender: F : 1995 (Age: 29) Address: [address] [place] [address] Hospital #: [id number] Taken:11/30/2024 Received:11/30/2024 Reported: 12/05/2024 Patient Type: [facility] SPECIMEN Service: UNKNOWN Location: Physician(s): [...] and Immunology, [facility], [facility], [address], [place] [address] CLIA # [id number] Sharonda Estevez M.D. History: The patient is [...] specimen is bisected. Labeled A1. Jar 0. 11/30/2024 17:58 PA(s): Pamela Solis By this signature, I attest that the above diagnosis is based upon my personal examination of the slides(and/or other material). Addenda/Procedures The performance characteristics of some immunohistochemical stains, fluorescence in-situ hybridization tests and immunophenotyping by flow cytometry cited in this report (if any) were determined by the Surgical Pathology and Flow Cytometry Departments at [facility] as part of an ongoing corporate quality manager program and in compliance with [...] Surgical Pathology and Flow Cytometry Departments of [facility]. It has not been cleared or approved by the U. S. Food and Drug Administration. IMAGES AND SCANNED DOCUMENTS, IF INCLUDED, ONLY VIEWABLE IN PDF VERSION OF REPORT Blu Hayes MD LAB PATHOLOGY OR DERABLES Final Result PATHOLOGY [facility] 3rd Floor [place], [place] [phone] * eGFR (09/23/2024 7:24 AM DATA MODELING SPECIALIST) eGFR >90 >=60 mL/min/1. 73 m2 Comment: [...] last reviewed 2021. Blood 09/23/2024 7:24 AM DATA MODELING SPECIALIST 09/23/2024 9:41 AM DATA MODELING SPECIALIST us Antonio BAPTISTE LAB BLOOD ORDERABLES Final Resu lt [facility]AIL[facility] [address] [facility] [place] [address] * Hepatitis C antibody Blood (09/23/2024 7:24 AM DATA MODELING SPECIALIST) Pathologist [facility] Hep C Ab Nonreactive [...] revised on 2019. Blood 09/23/2024 7:24 AM DATA MODELING SPECIALIST 09/23/2024 9:41 AM DATA MODELING SPECIALIST Antonio BAPTISTE LAB MICROBIOLOGY - GENERAL ORDMartin HAN Final Result Performing Organization Address [facility] Co de Phone Number LULA [address] [facility] [place] [address] * (ABNORMAL) Hemoglobin A1c (09/23/2024 7:24 AM DATA MODELING SPECIALIST) [facility] Hgb A1C 6.7(H) 4.0 - 5.6 % Estimated Average Glucose 146 mg/dL LULA Comment: The ADA recommends reporting an estimated Average Glucose (eAG) with all Hemoglobin A1c results using the equation derived from a study of 507 normal and diabetic adults. Minority populations were underrepresented and children were not included. (Diabetes Care 31:4655-1145, 2008). The eAG is not equivalent to a fasting glucose. Blood 09/23/2024 7:24 AM DATA MODELING SPECIALIST 09/23/2024 9:40 AM DATA MODELING SPECIALIST Antonio BAPTISTE LAB BLOOD ORDERABLES Final Resu lt Performing Organization Address City/[facility]/ZIP Co de Phone Number ABIGAIL[facility]ERLY [facility] [address] [facility] [place] [place] [address] * (ABNORMAL) Lipid panel (09/23/2024 7:24 AM DATA MODELING SPECIALIST) Cholesterol 142 30 - 199 mg/dL Comment: [...] 4 LULA STEEL Blood 09/23/2024 7:24 AM DATA MODELING SPECIALIST 09/23/2024 9:41 AM DATA MODELING SPECIALIST us Antonio BAPTISTE LAB BLOOD ORDERABLES Final Resu lt LULA STEEL [address] [facility] Department [place] [address] * Albumin Creatinine Ratio, Urine (09/23/2024 7:20 AM DATA MODELING SPECIALIST) Albumin Ur <12.0 mg/L Comment: Interpretive Data No reference range established. Current interpretive data was last revised 2019. Creatinine Ur 197.0 mg/dL LULA STEEL Comment: Interpretive Data No reference range established. Current interpretive data was last revised 2019. Albumin Creatinine Ratio, Ur <6 1 - 29 mg/g LULA STEEL Urine 09/23/2024 7:20 AM DATA MODELING SPECIALIST 09/23/2024 9:37 AM DATA MODELING SPECIALIST us Antonio BAPTISTE LAB URINE ORDERABLES Final Resu lt LULA [address] [facility] Department [place] [address] from Last 3 Months or Most Recently Relevant to Health Maintenance Insurance [facility] * Guarantor: [facility] [employer] Account Type Relation to Patient Date of Phone Billing Address Third Libertarian Liability Other Care Teams Lay Brother Relationship Specialty Start Date End Date Antonio Baldwin PA PCP - General Family Medicine 07/01/22
--- OUTSIDE RECORDS SUMMARY | 2025-01-24 17:06 | XMS_ITS | Clinical Summary ---
Author Organization [facility] Address [address] [place] [address] Care Team Providers Care Starter Cup Powder Mixer Name Role Phone Unavailable Primary Care Provider Unavailabl e Source Comments [facility],non-owned Affiliates and Associated Physician Practices is amultiple site organization consisting of ambulatory clinics and hospital sitesin [place], [place], [place] and [place]. This disclosure is being madepursuant to the Care Everywhere program and may not contain all information available regarding this patient. Last updated 18.[facility] [employer] Allergies No known active allergies Medications * Be aware that medications may not be up to date on this document. Alwaysverify current medications with the patient. cetirizine (ZYRTEC) 10 MG tabletIndications: Allergic rhinitis Take 1 Tab by mouth at bedtime. 30 3 0 Active fluticasone propionate (FLUTICASONE PROPIONATE) 50 MCG/ACT nasal sprayIndications:A llergic rhinitis [place] 2 Sprays into each nostril daily. 1 3 0 Active fluticasone hfa 44 (FLOVENT HFA 44) 44 MCG/ACT inhalerIndications :Extrinsic asthma, unspecified (HCC) Inhale 2 Puffs by mouth 2 times daily. 1 3 0 Active albuterol HFA (PROVENTIL;VENTOLI N;PROAIR) 108 (90 BASE) MCG/ACT inhalerIndications :Extrinsic asthma, unspecified (HCC) Inhale 2 Puffs by mouth every 4 hours as needed for Shortness of Breath, Wheezing and Cough. 1 3 0 Active olopatadine (PATADAY) 0.2 % ophthalmic solutionIndication s:Other chronic allergic conjunctivitis 1 Drop daily. 2.5 mL 2 0 Active Social History Tobacco Use Types Packs/Day Years Used Date Smoking Tobacco: Never Assessed Comments Unknown Sex and Gender Information Value Date Recorded Sex Assigned at Not on file Legal Sex Female 5:40 AM MANAGER PAYROLL Gender Identity Not on file Sexual Orientation Not on file Plan of Treatment Upcoming Encounters Date Type Department Care Team (Late st Contact Info) Description 01/31/2025 1:00 PM CDT Appointment [facility] [address] [place] [address] 01/31/2025 2:30 PM CDT Appointment [facility] [address] [place] [address] Health Maintenance Due Date Last Done Comments PAP SMEAR 1995 HIV SCREENING 01/04/2008 HEPATITIS C SCREENING 12/30/2010 DTAP/TDAP/TD VACCINES (1 - Tdap) 01/04/2012 HEPATITIS B VACCINE (1 of 3 - 19+ 3-dose series) 01/04/2012 COVID-19 VACCINE (3 - season) 2024 06/14/2021, 05/24/2021 DEPRESSION SCREENING 10/04/2024 ZOSTER VACCINE (1 of 2) 2043 INFLUENZA VACCINE Completed 06/24/2024, , 07/04/2023, Additional history exists HIB VACCINE Aged Out No longer eligi ble based on patient's age to complete this topic HPV VACCINE Aged Out No longer eligi ble based on patient's age to complete this topic MENINGOCOCCAL (Group B) VACCINE SHARED DECISION-MAKING Aged Out No longer eligible based on patient's age to complete this topic MENINGOCOCCAL GROUPS A/C/Y/W VACCINE Aged Out No longer eligible based on patient's age to complete this topic PNEUMOCOCCAL VACCINE Aged Out No long er eligible based on patient's age to complete this topic
--- OUTSIDE RECORDS SUMMARY | 2025-01-24 17:06 | XMS_ITS | Referral Summary ---
Author Organization [facility] [address] [facility] Address [address] [place] [address] Care Team Providers Care Electric Appliance Installer Name Role Phone Antonio Baldwin Primary Care Provider [phone] Encounters Date Type Department Care Team Description 01/08/2025 Telephone [facility] Family Medicine at [address] [place] [address] Antonio Baldwin PA Novolog PA 01/08/2025 Telephone [facility] Family Medicine at [address] [place] [address] Antonio Baldwin PA PA for glucometer, test strips, lancets 12/29/2024 Telephone [facility] Family Medicine at [address] [place] [address] Antonio Baldwin PA Medication Request 12/19/2024 Telephone [facility] [address] [place] [address] Health 4th Floor [address] [place] [address] Johana Estrella RN 12/06/2024 Orders Only [facility] Dermatology [address] [place] [address] Outpatient Health [address] [place] [address] Blu Hayes MD 12/04/2024 Orders Only [facility] Dermatology [address] [place] [address] Outpatient Health [address] [place] [address] Blu Hayes MD Rash (Primary Dx) 12/04/2024 Telephone [facility]patient [facility] 4th Floor [address] [place] [phone] Maya Granger Scheduling Appointments 11/30/2024 Orders Only [facility] [address] [place] [address] Blu Hayes MD Rash 11/30/2024 5:24 PM RADIATION CONTROL WORKER - 11/30/2024 11:59 PM RADIATION CONTROL WORKER Hospital Encounter [facility] [address] [place] [address] Discharge Disposition: Discharge to home or self care 11/30/2024 Telephone [facility] Family Medicine at [address] [place] [address] Antonio Baldwin PA Appointment Request 11/30/2024 2:00 PM RADIATION CONTROL WORKER [facility] [address] [place] [address] 4th Floor [address] [place] [phone] Blu Hayes MD Rash from Last 3 Months Allergies Active Allergy [...] 02/01/2023 Assessment & Plan (09/24/2024 9:53 PM RADIATION CONTROL WORKER): Chronic uncontrolled Intolerant to metformin Start trulicity [...] Work on low carb diet Refer to president & ceo Order a1c in 3mo Dyspnea 12/23/2022 Left foot pain 12/23/2022 Overview (12/23/2022): COnt diclofenac Cont podiatry Intractable migraine with aura without status mi grainosus 10/07/2022 Assessment & Plan (09/24/2024 9:52 PM RADIATION CONTROL WORKER): Chronic stable and improving with quilipta. Continue [...] dosing Assessment & Plan (09/16/2023 4:00 PM RADIATION CONTROL WORKER): Chronic condition Start quilipta Assessment & Plan (10/07/2022 10:23 AM RADIATION CONTROL WORKER): Chronic uncontrolled Start quilipta Wrist sprain, right, [...] MRI Assessment & Plan (12/01/2021 12:34 PM RADIATION CONTROL WORKER): Chronic with worsening pain Refer to p.t. 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 Assessment & Plan (10/07/2022 10:30 AM RADIATION CONTROL WORKER): Start triamcinolone tid prn hands Assessment & [...] 07/18/2020 Assessment & Plan (10/07/2022 10:31 AM RADIATION CONTROL WORKER): Refer to hematology Family history of hemoglobin [...] 07/26/2017 Assessment & Plan (10/07/2022 10:31 AM RADIATION CONTROL WORKER): Chronic Failed p.t. and xrays and nsaids [...] on file Legal Sex Female 11:27 PM RADIATION CONTROL WORKER Gender Identity Female 08/08/2021 9:31 AM CDT Sexual Orientation Straight 08/08/2021 9: 31 AM CDT Last Filed Vital Signs Vital Sign Reading Time Taken Comments Blood Pressure 114/82 09/22/2024 11:36 AM RADIATION CONTROL WORKER Pulse 61 09/22/2024 11:36 AM RADIATION CONTROL WORKER Temperature 36.5 C (97.7 F) 09/22/2024 11:36 AM RADIATION CONTROL WORKER Respiratory Rate 18 09/22/2024 11:36 AM RADIATION CONTROL WORKER Oxygen Saturation 99% 09/22/2024 11:36 AM RADIATION CONTROL WORKER Inhaled Oxygen Concentration - - Weight 104.1 kg (229 lb 8 oz) 09/22/2024 11:36 A M RADIATION CONTROL WORKER Height 157.5 cm (5' 2 ) 09/22/2024 11:36 AM RADIATION CONTROL WORKER Body Mass Index 41.98 09/22/2024 11:36 AM RADIATION CONTROL WORKER Plan of Treatment Not on file Procedures Procedure Name Priority Date/Time Associated Diagnosis Comments SURGICAL PATHOLOGY Routine 11/30/2024 2: 33 PM RADIATION CONTROL WORKER Rash HEPATITIS C ANTIBODY Routine 09/23/2024 7:24 AM RADIATION CONTROL WORKER Accident caused by hypodermic needle, subsequent encounter EGFR Routine 09/23/2024 7:24 AM RADIATION CONTROL WORKER 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) HEMOGLOBIN A1C Routine 09/23/2024 7:24 AM RADIATION CONTROL WORKER 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) LIPID PANEL Routine 09/23/2024 7:24 AM RADIATION CONTROL WORKER 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) ALBUMIN CREATININE RATIO, URINE Routine 09/23/2024 7:20 AM RADIATION CONTROL WORKER 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) from Last 3 Months or Most Recently Relevant to Health Maintenance Results * Surgical pathology (11/30/2024 2:33 PM RADIATION CONTROL WORKER) Tissue specimen (specimen) (Skin, biopsy) 11/30/2024 2:33 PM RADIATION CONTROL WORKER 11/30/2024 4:18 PM RADIATION CONTROL WORKER Narrative PATHOLOGY BJ - 12/05/2024 3:57 PM RADIATION CONTROL WORKER EPIC results best viewed via link to PDF [facility] [place] [address] Note to Patients: This report may contain [...] Gender: F : 1995 (Age: 29) Address: [address] [place] [address] Hospital #: [id number] Taken:11/30/2024 Received:11/30/2024 Reported: 12/05/2024 Patient Type: [facility] SPECIMEN Service: UNKNOWN Location: Physician(s): Blu [...] Pathology and Immunology, [facility], [address], [address], [place] [address] CLIA # [id number] Sharonda Estevez M.D. History: The patient is [...] Surgical Pathology and Flow Cytometry Departments at [facility] as part of an ongoing food quality tester program and in compliance with federally mandated [...] Surgical Pathology and Flow Cytometry Departments of [facility]. It has not been cleared or approved by the U. S. Food and Drug Administration. IMAGES AND SCANNED DOCUMENTS, IF INCLUDED, ONLY VIEWABLE IN PDF VERSION OF REPORT Blu Hayes MD LAB PATHOLOGY OR DERABLES Final Result PATHOLOGY [facility] IO 3rd Floor [place], [place] [phone] * eGFR (09/23/2024 7:24 AM RADIATION CONTROL WORKER) eGFR >90 >=60 mL/min/1. 73 m2 Comment: [...] last reviewed 2021. Blood 09/23/2024 7:24 AM RADIATION CONTROL WORKER 09/23/2024 9:41 AM RADIATION CONTROL WORKER us Antonio BAPTISTE LAB BLOOD ORDERABLES Final Resu lt [facility] [address] [facility] Department [place] [address] * Hepatitis C antibody Blood (09/23/2024 7:24 AM RADIATION CONTROL WORKER) Hep C Ab Nonreactive Nonreactive Comment: Antibodies [...] revised on 2019. Blood 09/23/2024 7:24 AM RADIATION CONTROL WORKER 09/23/2024 9:41 AM RADIATION CONTROL WORKER Antonio [facility] LAB MICROBIOLOGY - [facility]AL [facility] Final Result Performing Organization Address [facility] de Phone Number [id number] [address] * (ABNORMAL) Hemoglobin A1c (09/23/2024 7:24 AM RADIATION CONTROL WORKER) Hgb A1C 6.7(H) 4.0 - 5.6 % Estimated Average Glucose 146 mg/dL [facility] Comment: The ADA recommends reporting an estimated Average Glucose (eAG) with all Hemoglobin A1c results using the equation derived from a study of 507 normal and diabetic adults. Minority populations were underrepresented and children were not included. (Diabetes Care 31:1211-7370, 2008). The eAG is not equivalent to a fasting glucose. Blood 09/23/2024 7:24 AM RADIATION CONTROL WORKER 09/23/2024 9:40 AM RADIATION CONTROL WORKER Antonio [facility] LAB BLOOD ORDERABLES Final Resu lt Performing Organization Address [facility] de Phone Number [id number] [address] * (ABNORMAL) Lipid panel (09/23/2024 7:24 AM RADIATION CONTROL WORKER) Cholesterol 142 30 - 199 mg/dL Comment: [...] 3. Boyd M et al. NELIA Cardiol. 2020 February [...] last revised on 2018. Chol/HDL ratio 4 [facility] Blood 09/23/2024 7:24 AM RADIATION CONTROL WORKER 09/23/2024 9:41 AM RADIATION CONTROL WORKER us Antonio [facility] LAB BLOOD ORDERABLES Final Resu lt Performing Organization Address [facility] de Phone Number [address] [place] [address] * Albumin Creatinine Ratio, Urine (09/23/2024 7:20 AM RADIATION CONTROL WORKER) Albumin Ur <12.0 mg/L Comment: Interpretive Data No reference range established. Current interpretive data was last revised 2019. Creatinine Ur 197.0 mg/dL [facility] Comment: Interpretive Data No reference range established. Current interpretive data was last revised 2019. Albumin Creatinine Ratio, Ur <6 1 - 29 mg/g [facility] Urine 09/23/2024 7:20 AM RADIATION CONTROL WORKER 09/23/2024 9:37 AM RADIATION CONTROL WORKER Antonio [facility] LAB URINE ORDERABLES Final Resu lt Performing Organization Address [facility] Co de Phone Number [address] [place] [address] from Last 3 Months or Most Recently Relevant to Health Maintenance Insurance [facility] * Guarantor: [facility] [employer] Account Type Relation to Patient Date of Phone Billing Address Third Libertarian Liability Other Care Teams Electric Appliance Installer Relationship Specialty Start Date End Date Antonio Baldwin PA PCP - General Family Medicine 07/01/22
--- OUTSIDE RECORDS SUMMARY | 2025-01-24 17:06 | XMS_ITS | Encounter Summary ---
Author Organization [facility] Facility Care Team Providers Care Service Provider Name Role Phone Phillip Coker MD Primary Care Provider [phone] Antonio Baldwin Primary Care Provider [phone] Encounter Details Date Type Department Care Team (Latest Contact Info) Description 10/28/2018 Orders Only [facility] ProviderPérez MD [address] [place] [id number] Social History Tobacco Use Types Packs/Day Years Used Date Smoking Tobacco: Never Assessed Comments Unknown Sex and Gender Information Value Date Recorded Sex Assigned at Not on file Legal Sex Female 11:27 PM SENIOR ACCOUNTING CLERK Gender Identity Female 08/08/2021 9:31 AM CDT Sexual Orientation Straight 08/08/2021 9: 31 AM CDT documented as of this encounter Plan of Treatment Not on file documented as of this encounter Procedures Procedure Name Priority Date/Time Associated Diagnosis Comments CARDIOLOGY REPORT 10/28/2018 12: 00 AM SENIOR ACCOUNTING CLERK documented in this encounter Results * CARDIOLOGY REPORT (10/28/2018 12:00 AM SENIOR ACCOUNTING CLERK) Anatomical Region Laterality Modality Other Narrative 10/28/2018 12:00 AM SENIOR ACCOUNTING CLERK Ordered by an unspecified provider. Historical Provider [facility] MARTHA HARDING Final Result documented in this encounter Visit Diagnoses Not on filedocumented in this encounter Additional Health Concerns Infection Onset Date Last Indicated Resolved Time COVID: Suspected 09/01/2021 09/01/2021 09/02/2021 1:03 AM SENIOR ACCOUNTING CLERK COVID: Suspected 10/01/2021 10/01/2021 10/02/2021 4:52 AM SENIOR ACCOUNTING CLERK COVID19 10/01/2021 10/01/2021 10/15/2021 3:07 AM SENIOR ACCOUNTING CLERK COVID: Recovered Comment:Added based on recent COVID infection. 10/15/2021 10/20/2021 02/12/2022 3:05 AM C DT COVID: Suspected 12/11/2021 12/11/2021 12/12/2021 12:07 AM SENIOR ACCOUNTING CLERK COVID: Suspected 06/21/2023 06/21/2023 06/21/2023 3:30 PM CDT COVID: Suspected 06/21/2023 06/21/2023 06/21/2023 6:32 PM CDT documented as of this encounter Care Teams Service Provider Relationship Specialty Start Date End Date Phillip Coker MD PCP - General 12/30/18 06/30/22 Antonio Baldwin PA PCP - General Family Medicine 07/01/22 documented as of this encounter
--- OUTSIDE RECORDS SUMMARY | 2025-01-24 17:06 | XMS_ITS | Data Portability ---
Author Organization [place] - [facility] OFFICE Address [address] [place] [address] Assessment Encounter Date Assessment Date Assessment LastModified by Organization Details LastModified Time 11/20/2020 11/20/2020 Discussed with patient findings, diagnosis, and prognosis. Discussed evaluation and treatment options including risks and benefits with patient, and patient expressed understanding. The following interventions were recommended: heart healthy low-fat, low-sodium diet, begin regular exercise,maintai n appropriate weight, continue current medications, and medical follow-up as noted. [email or web address] Not available 11/20/2020 11:12:34 03/12/2021 03/12/2021 Discussed with patient findings, diagnosis, and prognosis. Discussed evaluation and treatment options including risks and benefits with patient, and patient expressed understanding. The following interventions were recommended: heart healthy low-fat, low-sodium diet, begin regular exercise,maintai n appropriate weight, continue current medications, and medical follow-up as noted. [email or web address] Not available 03/12/2021 17:08:25 01/12/2023 01/12/2023 Patient [...] By Organization Details Last Modified Time 11/20/2020 [id number] When You Want to Lose Weight: Care Instructions [email or web address] Not available 11/20/2020 11:19:54 leg and ankle edema: care instructions [email or web address] Not available 11/20/2020 11:19:54 03/12/2021 06476 When You Want to Lose Weight: Care Instructions [email or web address] Not available 03/12/2021 17:16:33 leg and ankle edema: care instructions [email or web address] Not available 03/12/2021 17:16:33 high cholesterol : care instructions [email or web address] Not available 03/12/2021 17:16:33 01/12/2023 13491 Exercise advised Low cholesterol diet advised Low sodium diet advised. [email or web address] Not available 01/12/2023 11:32:47 05/01/2023 14567 Exercise advised Low cholesterol diet advised Low [...] 1 view No observ ation record ed. Not Available 11/14 15:45:34 11/14/19 21 10/13/2020 elect rocar diogr am No observ ation record ed. [email or web address] Not Available 2020 14:35:10 12/03/19 21 11/14/2020 stres s echoc ardio gram No observ ation record ed. [email or web address] Not Available 2020 12:04:27 03/13/20 21 03/12/2021 elect rocar diogr am No observ ation record ed. [email or web address] Not Available 03/13 15:21:32 10/15/19 23 10/14/2022 [...] and Address Organization Details Recorded Time Hyperlipidemia 24697458 Active 2020 Chito Anabel pa[place], [place] - [facility] 16:57:12 Acute maxillary sinusitis 70996432 Active 2016 Alessandra paiz, [place] - [facility] 7 14:50:19 Low back pain 840774787 Active 2016 Al[place], [place] - [facility] 7 14:50:29 Chest pain 10146379 Active 2016 [place], [place] - [facility] 7 14:50:41 Vitamin D deficiency 71011770 Active 2016 Aless[place], [place] - [facility] 7 14:51:18 Obstructive sleep apnea syndrome 52227827 Active 2016 Al[place], [place] - [facility] 7 14:51:27 Snoring 53747435 Active 2016 [place], [place] - [facility] 7 14:51:38 Fatigue 11935682 Active 2016 [place], [place] - [facility] 7 15:55:42 Palpitations 96552061 Active 2016 [place], [place] - [facility] 7 15:55:52 Headache 01224085 Active 2016 [place], [place] - [facility] 7 15:55:59 Increased blood pressure 49753593 Active 2016 Chito paiz [facility] 17:20:00 Edema of lower extremity 821211052 Active 2016 Chito paiz [facility] 7 17:32:02 Obesity 892503157 Active 2020 Chito paiz [facility] 11:06:57 Problem Notes None recorded. Procedures Surgical History None recorded. Imaging Results Imaging Date Name Status LastModified by Organization Details LastModified Time 10/13/2020 electrocardiogram completed Informa tion not available 11/13/2020 12:10:27 10/13/2020 XR, chest, 1 view completed [email or web address] Informa tion not available 11/14/2020 15:45:34 10/13/2020 electrocardiogram completed Informa tion not available 11/19/2020 14:35:10 11/14/2020 stress echocardiogram completed [email or web address] Information not available 12/02/2020 12:04:27 03/12/2021 electrocardiogram completed [email or web address] Informa tion not available 03/13/2021 15:21:32 10/14/2022 [...] Not available Not available Not available 08/14/2017 73280 [id number] SNOMED Vahe paiz [facility] 07:16:38 Medications Name Sig [...] Updated DateTime 1 165.1 cm 35.4 kg/m2 54172.1 7 g 81 /min 18 /min 99 % 99 % 97.1 [degF] 108 mm[Hg] 78 mm[Hg] Krystal Dutta [facility] 1 10:49:24 Date Recorded Body height Body mass index (BMI) Body weight Body temperature Heart rate Oxygen saturation Oxygen saturation in Arterial blood by Pulse oximetry Systolic blood pressure Diastolic blood pressure Provider Name and Address Organization Details Last Updated DateTime 1 165.1 cm 36.1 kg/m2 56266.5 4 g 97.4 [degF] 73 /min 100 % 100 % 116 mm[Hg] 78 mm[Hg] KARLIE CALLE [facility] 1 15:49:42 Date Recorded Body height Body mass index (BMI) Body weight Heart rate Oxygen saturation Oxygen saturation in Arterial blood by Pulse oximetry Systolic blood pressure Diastolic blood pressure Provider Name and Address Organization Details Last Updated DateTime 3 165.1 cm 38.3 kg/m2 860383. 25 g 76 /min 99 % 99 % 127 mm[Hg] 75 mm[Hg] Ramila Lanier [facility] 3 15:06:27 Date Recorded Body height Body mass index (BMI) Body weight Oxygen saturation Oxygen saturation in Arterial blood by Pulse oximetry Heart rate Systolic blood pressure Diastolic blood pressure Provider Name and Address Organization Details Last Updated DateTime 3 165.1 cm 38.4 kg/m2 180751. 04 g 97 % 97 % 71 /min 114 mm[Hg] 80 mm[Hg] BALJINDER MARTIN [facility] 3 11:13:33 Date Recorded Body height Body mass index (BMI) Body weight Heart rate Oxygen saturation Oxygen saturation in Arterial blood by Pulse oximetry Systolic blood pressure Diastolic blood pressure Provider Name and Address Organization Details Last Updated DateTime 3 165.1 cm 38.3 kg/m2 607036. 25 g 61 /min 99 % 99 % 104 mm[Hg] 76 mm[Hg] Isaura Handy [facility] 3 10:33:09 Social History Question Answer Notes LastModified by Organizat ion Details LastModified Time Tobacco Smoking Status Never Smoker Not Available [facility] 08/06/2020 03:30:42 What Is Your Level Of Alcohol Consumption? None [id number] Information not available 08/06/2020 What Is Your Level Of Caffeine Consumption? Occasional [id number] Information not available 08/06/2020 How Much Tobacco Do You Chew? None [id number] Information not available 08/06/2020 What Type Of Diet Are You Following? REGULAR [id number] Information not available 08/06/2020 Which Illicit Or Recreational Drugs Have You Used? No [id number] Information not available 08/06/2020 Do You Or Have You Ever Used E-cigarettes Or Vape? Never Used Electronic Cigarettes [id number] Information not available 08/06/2020 What Is Your Occupation? [employer] [id number] Information not available 08/06/2020 Live Alone Or With Others? With Others [email or web address] Information not available 08/17/2017 Marital Status Single [email or web address] Informatio n not available 08/17/2017 What Was The Date Of Your Most Recent Tobacco Screening? 01/27/2019 [id number] Information not available 08/06/2020 How Many Children Do You Have? 1 [id number] Information not available 08/06/2020 Do You Or Have You Ever Used Smokeless Tobacco? Never Used Smokeless Tobacco [id number] Information not available 08/06/2020 How Much Tobacco Do You Smoke? No [id number] Information not available 08/06/2020 General Stress Level Low [email or web address] Information not available 08/17/2017 How Many Years Have You Smoked Tobacco? 0 [id number] Information not available 08/06/2020 Sex: Unknown Functional Status Question Answer Note LastModified by Organization D etails LastModified Time What is your exercise level? None [id number] Information not available 08/06/2020 Mental Status None [...] available 2016 07:16:28 Maternal Grandmother Heart disease [email or web address] Not available 2016 17:23:47 Mother Heart disease mother with no CAD; cardio myopat hy at age 43; Matern al grandm other' s sister with cardio myopat hy. [email or web address] Not available 08/17/2017 17:25:34 Mother Myocardial infarction 45 [email or web address] Not available 11/26 14:26:20 Mother Hypertensive disorder [email or web address] Not available 2016 16:01:24 Mother Heart failure [email or web address] Not available 2016 16:01:49 Maternal Uncle Diabetes mellitus [email or web address] Not available 2016 16:00:41 Maternal Uncle Hypertensive disorder [email or web address] Not available 2016 16:01:36 Maternal Uncle Cerebrovascu lar accident [email or web address] Not available 16:02:06 Paternal Grandmother Hypertensive disorder [email or web address] Not available 2016 16:01:29 Medical History Condition Response Sleep Apnea Y Hypertension Y Gynecological HistoryNo gynecological history recorded. Obstetrics History GPAL:G 0 P 0 0 0 0 Past Encounters Encounter ID Performer Location Encounter Start Date Encounter Closed Date Diagnosis/Indication Diagnosis SNOMED-CT Code Diagnosis ICD10 Code Diagnosis Note [id number] Chito Little [place] [facility] [address] [place] [address] 08/17/2017 15:19:25 08/18/2017 09:47:10 Palpitations 73503418 R00.2 Infrequent but related to chest pain on occasion. 24 Hr Holter. Obtain TSH, BMP, Mg. Chest pain 25044173 R07. 9 Patient presents with {{chest* a [...] nitroglyce rin.}} Obstructiv e sleep apnea syndrome 13268072 G47.33 Pt has CHRISTINA and not using CPAP. Discussed in length importance of using CPAP and patient will retry. Increased blood pressure 63553274 R03.0 Blood pressure is elevated at home per patient report. Normal BP in office today. Will keep close follow up, and consider medication change if blood pressure is still elevated. BP diary. Edema of l ower extremity 554764642 R60.0 Occasional bilateral pedal edema, absent at present. Low sodium diet, 2gm/day. [id number] Chito Rowell Office [address] [address] 11/26/2017 12:22:03 11/26/2017 14:36:25 Chest pain 42429173 R07.9 Resolved. Had SE 09/07/17 : Negative stress echo for ischemia. Has family history of premature MS. Needs to keep LDL less than 70-100, and HDL more than 40. Had LDL 116 09/07/17. Not using statin since may want another child. 20 lb. weight loss recommende d over the next 2 months. Increase exercise. {{ Patient has been given a prescripti on for sublingual nitroglyce rin.}} Palpitations 56668590 R0 0.2 Resolved. Holter Monitor 09/07/17 : Unremarkab le Holter. No PAC's. No PVC's. NSR and sinus tachycardi a. Symptoms of chest pain associated with normal sinus rhythm. Obtained TSH, BMP, Mg (all normal 09/2017). Obstructiv e sleep apnea syndrome 57894615 G47.33 Pt has CHRISTINA and not using CPAP. Discussed in length importance of using CPAP and patient will retry. Increased blood pressure 59484681 R03.0 Blood pressure is elevated at home per patient report on occasion. Normal BP in office today and last visit. Will keep close follow up, and consider medication change if blood pressure is still elevated. BP diary. Edema of l ower extremity 195324698 R60.0 Occasional bilateral pedal edema, absent at present. Low sodium diet, 2gm/day. [id number] Rigo Ibanez MD [facility] [address] [place] [address] 07/29/2018 11:11:29 07/29/2018 12:17:41 Chest pain 47703390 R07.9 Resolved. Had SE 09/07/17 : Negative stress echo for ischemia. Has family history of premature MS. Needs to keep LDL less than 70-100, and HDL more than 40. Had LDL 116 09/07/17. Not using statin since may want another child. 20 lb. weight loss recommende d over the next 2 months. Increase exercise. {{ Patient has been given a prescripti on for sublingual nitroglyce rin.}} Palpitations 83374273 R0 0.2 Resolved. Holter Monitor 09/07/17 : Unremarkab le Holter. No PAC's. No PVC's. NSR and sinus tachycardi a. Symptoms of chest pain associated with normal sinus rhythm. Obtained TSH, BMP, Mg (all normal 09/2017). Obstructiv e sleep apnea syndrome 70999753 G47.33 Pt has CHRISTINA and not using CPAP. Discussed in length importance of using CPAP and patient will retry. Will order home sleep study. Increased blood pressure 88606048 R03.0 Blood pressure is elevated at home per patient report on occasion. Normal BP in office today and last visit. Will keep close follow up, and consider medication change if blood pressure is still elevated. BP diary. Edema of l ower extremity 307017678 R60.0 Occasional bilateral pedal edema, absent at present. Low sodium diet, 2gm/day. [id number] Rigo Ibanez MD [facility] [address] [place] [address] 01/27/2019 10:13:07 01/27/2019 11:26:47 Chest pain 73151794 R07.9 Resolved.H ad SE 09/07/17 : Negative stress echo for ischemia{{ Patient has been given a prescripti on for sublingual nitroglyce rin.}} Palpitations 92907424 R0 0.2 Resolved. Holter Monitor 09/07/17 : Unremarkab le Holter. No PAC's. No PVC's. NSR and sinus tachycardi a. Symptoms of chest pain associated with normal sinus rhythm. Obtained TSH, BMP, Mg (all normal 09/2017). Obstructiv e sleep apnea syndrome 50843794 G47.33 Pt has CHRISTINA and not using CPAP. Discussed in length importance of using CPAP and patient will retry. Will order home sleep study. Increased blood pressure 12161078 R03.0 Well controlled . Edema of l ower extremity 155242140 R60.0 Occasional bilateral pedal edema, absent at present. Low sodium diet, 2gm/day. [id number] Allegra Ibrahim e Office [address] [address] 12/14/2019 15:26:13 12/14/2019 16:05:59 Chest pain 13245216 R07.9 Resolved.H ad SE 09/07/17 : Negative stress echo for ischemia{{ Patient has been given a prescripti on for sublingual nitroglyce rin.}} Palpitations 79405590 R0 0.2 Resolved. Holter Monitor 09/07/17 : Unremarkab le Holter. No PAC's. No PVC's. NSR and sinus tachycardi a. Symptoms of chest pain associated with normal sinus rhythm. Obtained TSH, BMP, Mg (all normal 09/2017). Obstructiv e sleep apnea syndrome 18175481 G47.33 Pt has CHRISTINA and not using CPAP. Discussed in length importance of using CPAP and patient will retry. Will order home sleep study. Increased blood pressure 88887883 R03.0 Well controlled . Edema of l ower extremity 119961756 R60.0 Occasional bilateral pedal edema, absent at present. Low sodium diet, 2gm/day. Systolic murmur 47690688 R01.1 Noted on exam today. Likely physiologi c with . Had echo last year with possible mitral prolapse but otherwise no significan t valvular disease.Sh e has mild dyspnea. Will consider repeat echo if symptoms worsen. WIll see pt in follow up before her scheduled delivery in May. Dyspnea on exertion 6084 5006 R06.09 [id number] Allegra Rowell Office [address] [place] [address] 04/03/2020 15:39:01 04/03/2020 16:18:51 Systolic murmur 41043192 R01.1 Noted on exam today. Likely physiologi c with . echo with possible mitral prolapse but otherwise no significan t valvular disease.Sh e has stable dyspnea associate with Chest pain 87592216 R07. 9 Resolved.H ad SE 09/07/17 : Negative stress echo for ischemia{{ Patient has been given a prescripti on for sublingual nitroglyce rin.}} Palpitations 39100593 R0 0.2 Resolved. Holter Monitor 09/07/17 : Unremarkab le Holter. No PAC's. No PVC's. NSR and sinus tachycardi a. Symptoms of chest pain associated with normal sinus rhythm. Obtained TSH, BMP, Mg (all normal 09/2017). Obstructiv e sleep apnea syndrome 48621943 G47.33 Pt has CHRISTINA and not using CPAP. Discussed in length importance of using CPAP and patient will retry. Will order home sleep study. Increased blood pressure 00260755 R03.0 Well controlled . Edema of l ower extremity 852259559 R60.0 Occasional bilateral pedal edema, absent at present. Low sodium diet, 2gm/day. Dyspnea on exertion 6084 5006 R06.09 Family his tory of Cardiomyopathy 666734429 Z82.49 Echo last year with no hypertroph y. Repeat echo in 5 years. Consider genitic testing [id number] Aicha Newman [facility] [address] [place] [address] 10/15/2020 16:15:07 10/15/2020 17:38:11 Systolic murmur 80017670 R01.1 Likely physiologi c with . echo with possible mitral prolapse but otherwise no significan t valvular disease.Sh e has stable dyspnea associate with Chest pain 60060344 R07. 9 ER visit Obta in stress Echo Had SE 09/07/17 : Negative stress echo for ischemia{{ Patient has been given a prescripti on for sublingual nitroglyce rin.}} Palpitations 55703431 R0 0.2 Resolved. Holter Monitor 09/07/17 : Unremarkab le Holter. No PAC's. No PVC's. NSR and sinus tachycardi a. Symptoms of chest pain associated with normal sinus rhythm. Obtained TSH, BMP, Mg (all normal 09/2017). Family his tory of Cardiomyopathy 666717315 Z82.49 Echo last year with no hypertroph y. Repeat echo in 5 years. Consider genitic testing Obstructiv e sleep apnea syndrome 26525042 G47.33 Pt has CHRISTINA and not using CPAP. Discussed in length importance of using CPAP and patient will retry. Edema of l ower extremity 325857085 R60.0 Occasional bilateral pedal edema, absent at present. Low sodium diet, 2gm/day. Dyspnea on exertion 6084 5006 R06.09 [id number] Chito Little [facility] [address] [place] [address] 11/20/2020 10:42:05 11/20/2020 11:20:25 Systolic murmur 24001840 R01.1 Likely physiologi c with previously .Previousl y had echo with possible mitral prolapse but otherwise no significan t valvular disease. No MVP on echo in last 2 years since 10/2018. Chest pain 61146404 R07. 9 Atypical, resolved. [facility] ER visit 10/13/20 for upper central chest [...] prescripti on for sublingual nitroglyce rin.}} Palpitations 56995123 R0 0.2 Resolved. Holter Monitor 09/07/17 : Unremarkab le Holter. No PAC's. No PVC's. NSR and sinus tachycardi a. Symptoms of chest pain associated with normal sinus rhythm. Obtained TSH, BMP, Mg (all normal 09/2017). Family his tory of Cardiomyopathy 104091600 Z82.49 Echo recently with no hypertroph y. Repeat echo in 2 years. Consider genetic testing. Had stress echo 11/14/20: Negative stress echo for ischemia, mild exercise impairment . Had ECHO done in 10/14/18 showed normal global systolic function , EF 60-65% , mild tricuspid regurgitat ion. Sinus bradycardi a . Obtain FLP. Obstructiv e sleep apnea syndrome 16738581 G47.33 Pt has CHRISTINA and not using CPAP. Discussed in length importance of using CPAP and patient will retry pending receipt of new masks/stra ps. Follows with [facility]. Edema of l ower extremity 208773484 R60.0 Occasional bilateral pedal edema, absent at present. Low sodium diet, 2gm/day. Dyspnea on exertion 6084 5006 R06.09 Improved. Had stress echo 11/14/20: Negative stress echo for ischemia, mild exercise impairment . Had ECHO done in 10/14/18 showed normal global systolic function , EF 60-65% , mild tricuspid regurgitat ion. Sinus bradycardi a. Increase walking. Obesity 531003020 E66.9 20 lb. weight loss recommende d over the next 2 months. [id number] Chito Anabel [facility] [address] [place] [address] 03/12/2021 15:37:27 03/12/2021 17:17:03 Systolic murmur 04056832 R01.1 Likely physiologi c with previously .Previousl y had echo with possible mitral prolapse but otherwise no significan t valvular disease. No MVP on echo in last 2 years since 10/2018. Chest pain 79444801 R07. 9 Atypical, resolved. Had [facility] ER visit 10/13/20 for upper central chest [...] prescripti on for sublingual nitroglyce rin.}} Palpitations 12359948 R0 0.2 Resolved. Holter Monitor 09/07/17 : Unremarkab le Holter. No PAC's. No PVC's. NSR and sinus tachycardi a. Symptoms of chest pain associated with normal sinus rhythm. Obtained TSH, BMP, Mg (all normal 09/2017). Obtain labs with PCP in 1-2 weeks. Family his tory of Cardiomyopathy 520840689 Z82.49 Echo recently with no hypertroph y. [...] for LVH. Obstructiv e sleep apnea syndrome 01367991 G47.33 Pt has CHRISTINA and not using CPAP. Discussed in length importance of using CPAP and patient will retry pending receipt of new masks/stra ps. Follows with [facility] sleep clinic and needs f/u for new CPAP equipment. Edema of l ower extremity 309902489 R60.0 Improved. Occasional bilateral pedal edema, absent at present. Low sodium diet, 2gm/day. Needs CPAP for CHRISTINA per [facility] sleep clinic. Dyspnea on exertion 6084 5006 R06.09 Improved. Had stress echo 11/14/20: Negative stress echo for ischemia, mild exercise impairment . Had ECHO done in 10/14/18 showed normal global systolic function , EF 60-65% , mild tricuspid regurgitat ion. Sinus bradycardi a. Increase walking. Obesity 929492769 E66.9 20 lb. weight loss recommende d over the next 2 months. Hyperlipidemia 50452316 E78.5 Had 03/04/21 LIPID: TC 173, HDL 43, TG 61, LDL 115 Needs to keep LDL less than 70-100, and HDL more than 40. Increase walking. Reduce fatty red meat and egg yolks. Given age and child-bear ing potential, avoiding statin at present and will work with dietary therapy. Repeat FLP in 6 mo. [id number] MD Patrice Calderón Office [address] [address] 10/14/2022 14:41:04 10/14/2022 15:34:14 Systolic murmur 45407072 R01.1 Likely physiologi c with previously .Previousl y had echo with possible mitral prolapse but otherwise no significan t valvular disease. No MVP on echo in last 2 years since 10/2018. Chest pain 94507703 R07. 9 Atypical, resolved. [facility] ER visit 10/13/20 for upper central chest [...] prescripti on for sublingual nitroglyce rin.}} Palpitations 03408870 R0 0.2 Resolved. Holter Monitor 09/07/17 : Unremarkab le Holter. No PAC's. No PVC's. NSR and sinus tachycardi a. Symptoms of chest pain associated with normal sinus rhythm. Obtained TSH, BMP, Mg (all normal 09/2017). Obtain labs with PCP in 1-2 weeks. Family his tory of Cardiomyopathy 275893525 Z82.49 Echo recently with no hypertroph y. [...] for LVH. Obstructiv e sleep apnea syndrome 87437046 G47.33 Pt has CHRISTINA and not using CPAP. Discussed in length importance of using CPAP and patient will retry pending receipt of new masks/stra ps. Follows with [facility] sleep clinic and needs f/u for new CPAP equipment. Edema of l ower extremity 834120952 R60.0 Improved. Occasional bilateral pedal edema, absent [...] ion. Sinus bradycardi a. Increase walking. Obesity 670427392 E66.9 20 lb. weight loss recommende d over the next 2 months. Hyperlipidemia 96511722 E78.5 Had 03/04/21 LIPID: TC 173, HDL 43, TG 61, LDL 115 Needs to keep LDL less than 70-100, and HDL more than 40. Increase walking. Reduce fatty red meat and egg yolks. Given age and child-bear ing potential, avoiding statin at present and will work with dietary therapy. Repeat FLP in 6 mo. [id number] LAKESHIA DE LA O [facility] [address] [place] [address] 01/12/2023 10:45:51 01/12/2023 11:53:26 Systolic murmur 90494047 R01.1 Likely physiologi c with previously .Previousl y had echo with possible mitral prolapse but otherwise no significan t valvular disease. No MVP on echo in last 2 years since 10/2018. Chest pain 99598558 R07. 9 Atypical, resolved. Had [facility] ER visit 10/13/20 for upper central chest [...] prescripti on for sublingual nitroglyce rin.}} Palpitations 81055929 R0 0.2 Resolved. Holter Monitor 09/07/17 : Unremarkab le Holter. No PAC's. No PVC's. NSR and sinus tachycardi a. Symptoms of chest pain associated with normal sinus rhythm. Obtained TSH, BMP, Mg (all normal 09/2017). Obtain labs with PCP in 1-2 weeks. Family his tory of Cardiomyopathy 780990831 Z82.49 Echo recently with no hypertroph y. [...] for LVH. Obstructiv e sleep apnea syndrome 42624698 G47.33 Pt has CHRISTINA and not using CPAP. Discussed in length importance of using CPAP and patient will retry pending receipt of new masks/stra ps. Follows with [facility] sleep clinic and needs f/u for new CPAP equipment. Edema of l ower extremity 719026006 R60.0 Improved. Occasional bilateral pedal edema, absent at present. Low sodium diet, 2gm/day. Needs CPAP for CHRISTINA per [facility] sleep clinic. Dyspnea on exertion 6084 5006 R06.09 will repeat Echo Had stress echo 11/14/20: Negative stress echo for ischemia, mild exercise impairment . Had ECHO done in 10/14/18 showed normal global systolic function , EF 60-65% , mild tricuspid regurgitat ion. Sinus bradycardi a. Increase walking. Obesity [id number] E66.9 20 lb. weight loss recommende d over the next 2 months. Hyperlipidemia 34709161 E78.5 Had 03/04/21 LIPID: TC 173, HDL 43, TG 61, LDL 115 Needs to keep LDL less than 70-100, and HDL more than 40. Increase walking. Reduce fatty red meat and egg yolks. Given age and child-bear ing potential, avoiding statin at present and will work with dietary therapy. [facility] [address] [place] [address] 05/01/2023 09:57:33 05/01/2023 10:48:06 Systolic murmur 76111191 R01.1 Likely physiologi c with previously .Previousl y had echo with possible mitral prolapse but otherwise no significan t valvular disease. No MVP on echo in last 2 years since 10/2018. Chest pain 99243913 R07. 9 Atypical, resolved. Had [facility] visit 10/13/20 for upper central chest [...] prescripti on for sublingual nitroglyce rin.}} Palpitations [id number] R0 0.2 Resolved. Holter Monitor 09/07/17 : Unremarkab le Holter. No PAC's. No PVC's. NSR and sinus tachycardi a. Symptoms of chest pain associated with normal sinus rhythm. Obtained TSH, BMP, Mg (all normal 09/2017). Obtain labs with PCP in 1-2 weeks. Family his tory of Cardiomyopathy [id number] Z82.49 Echo recently with no hypertroph y. [...] for LVH. Obstructiv e sleep apnea syndrome 28204859 G47.33 Pt has CHRISTINA and not using CPAP. Discussed in length importance of using CPAP and patient will retry pending receipt of new masks/stra ps. Follows with [facility] sleep clinic and needs f/u for new CPAP equipment. Edema of l ower extremity [id number] R60.0 Resolved Occasional bilateral pedal edema, absent at present. Low sodium diet, 2gm/day. Needs CPAP for CHRISTINA per [facility] sleep clinic. Dyspnea on exertion 6084 5006 R06.09 resolved Had stress echo 11/14/20: Negative stress echo for ischemia, mild exercise impairment . Had ECHO done in 10/14/18 showed normal global systolic function , EF 60-65% , mild tricuspid regurgitat ion. Sinus bradycardi a. Increase walking. Obesity 780825166 E66.9 20 lb. weight loss recommende d over the next 2 months. Hyperlipidemia 55203912 E78.5 Had 03/04/21 LIPID: TC 173, HDL [...] Snyder Member ID Guarantor Name 11/20/[address] [facility] (MEDICAID HMO) [id number] 0003 Yenni Francois [id number] Yenni Francois 03/12/[address] [facility] (MEDICAID HMO) [id number] 0003 Yenni Francois [id number] Yenni Francois 10/14/[address] [facility] (MEDICAID HMO) [id number] 0003 Yenni Alessandro [id number] Yenni Francois 01/12/[address] [facility] (MEDICAID HMO) [id number] 0003 Yenni Francois [id number] Yenni Francois 05/01/[address] [facility] (MEDICAID HMO) [id number] 0003 Yenni Francois [id number] Yenni Francois Notes Date Note Type Note Provider Name and Address Organization Details Recorded Time 11/20/2020 text/html 11/20/20 CC: chest pain 25 year-old -[place] woman with h/o CHRISTINA (awaiting CPAP mask, [facility] Sleep [facility]), obesity, GERD, family history with mother with hypertrophic cardiomyopathy diagnosed at age 43 and mother with premature MS at 45, is here for follow. Giovanna [...] RBC 4.65 HGB 11.9 HCT 35.3 PLT 1731210/15/17 : MG 2.: Na 138 ,K 3.9 [...] follow up resolution is recommened Chito paiz [place] - [facility] 11/20/2020 11:20:22 03/12/2021 text/html 03/12/21 CC: chest pain 26 year-old -[place] woman with h/o CHRISTINA (awaiting CPAP mask, [facility] Sleep [facility]), obesity, GERD, family history with mother with hypertrophic cardiomyopathy diagnosed at age 43 and mother with premature MS at 45, seasonal allergies, anemia, is here for follow. She was admitted to [facility] 02/19/21-02/22/21 for pneumonia, COVID-19 negative, with resolution of cough but persistent bilateral lower back pain. She had follow-up with PCP. She has not been vaccinated for COVID-19. Had [facility] visit 10/13/20 for upper central chest [...] not using CPAP, awaiting new mask with [facility] sleep clinic. She was in [...] RBC 4.65 HGB 11.9 HCT 35.3 PLT 5126010/15/17 : MG 2.: Na 138 ,K 3.9 [...] follow up resolution is recommened Chito paiz [place] [facility] 03/12/2021 17:17:01 10/14/2022 text/html 10/14/22CC : Car diac follow up, dyspnea on [id number] year-old -[place] woman with h/o CHRISTINA ( on CPAP mask, [facility]), obesity, GERD, family history with mother with hypertrophic cardiomyopathy diagnosed at age 43 and mother with premature MS at 45, seasonal allergies, anemia, is here [...] takes any statins. Previously:She was admitted to [facility] 02/19/21-02/22/21 for pneumonia, COVID-19 negative, with resolution of cough but persistent bilateral lower back pain. She had follow-up with PCP. She has not been vaccinated for COVID-19. Had [facility] visit 10/13/20 for upper central chest [...] not using CPAP, awaiting new mask with [facility] sleep clinic. She was in [...] RBC 4.65 HGB 11.9 HCT 35.3 PLT 4288610/15/17 : MG 2.: Na 138 ,K 3.9 [...] up resolution is recommened Rigo Ibanez MD [address] [place], [address], [facility] 10/14/2022 15:28:26 01/12/2023 text/html 01/12/23CC : Car diac follow up dyspnea on [id number] year-old -[place] woman with h/o CHRISTINA ( on CPAP mask, [facility]), obesity, GERD, family history with mother with hypertrophic cardiomyopathy diagnosed at age 43 and mother with premature MS at 45, seasonal allergies, anemia, is here [...] takes any statins. Previously:She was admitted to [facility]. 02/19/21-02/22/21 for pneumonia, COVID-19 negative, with [...] RBC 4.65 HGB 11.9 HCT 35.3 PLT 05799 : MG 2.: Na 138 ,K 3.9 [...] : Car diac follow up dyspnea on [id number] year-old -[place] woman with h/o CHRISTINA ( on CPAP mask, [facility]), obesity, GERD, family history with mother with hypertrophic cardiomyopathy diagnosed at age 43 and mother with premature MS at 45, seasonal allergies, anemia, is here [...] resolved by itself. She was admitted to [facility]. 02/19/21-02/22/21 for pneumonia, COVID-19 negative, with [...] not using CPAP, awaiting new mask with [facility] sleep clinic. She was in [...] RBC 4.65 HGB 11.9 HCT 35.3 PLT 9756710/15/17 : MG 2.: Na 138 ,K 3.9 [...]
--- OUTSIDE RECORDS SUMMARY | 2025-01-24 17:07 | XMS_ITS | Encounter Summary ---
Author Organization [facility] Healthcare Address [address] [place] [address] Care Team Providers Care Buyer Tobacco Head Name Role Phone Phillip Coker MD Primary Care Provider [phone] Antonio Baldwin Primary Care Provider [phone] Reason for Visit * Reason Onset Date Comments No Show 01/15/2022 I called patient and she states that she will be in attendance tomorrow for her next scheduled visit. 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
--- OUTSIDE RECORDS SUMMARY | 2025-01-24 17:07 | XMS_ITS | Encounter Summary ---
Author Organization [facility] Care Team Providers Care Perinatal Instructor Name Role Phone Phillip Coker MD Primary Care Provider [phone] Antonio Baldwin Primary Care Provider [phone] Encounter Details Date Type Department Care Team (Latest Contact Info) Description 07/20/2017 Orders Only [facility] Provider, MD Pérez [address] [place] [address] Social History Tobacco Use Types Packs/Day Years Used Date Smoking Tobacco: Never Assessed Comments Unknown Sex and Gender Information Value Date Recorded Sex Assigned at Not on file 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 10/15/2021 10/20/2021 02/12/2022 3:05 AM C DT COVID: Suspected 12/11/2021 12/11/2021 12/12/2021 12:07 AM PLASTER MECHANIC COVID: Suspected 06/21/2023 06/21/2023 06/21/2023 3:30 PM CDT COVID: Suspected 06/21/2023 06/21/2023 06/21/2023 6:32 PM CDT documented as of this encounter Care Teams Perinatal Instructor Relationship Specialty Start Date End Date Phillip Coker MD PCP - General 12/30/18 06/30/22 Antonio Baldwin PA PCP - General Family Medicine 07/01/22 documented as of this encounter
--- OUTSIDE RECORDS SUMMARY | 2025-01-24 17:07 | XMS_ITS | Clinical Summary ---
Author Organization [facility] Address [facility] [place] [address] Care Team Providers Care Training Designer Name Role Phone MiloJoyce sarabia LANNY Primary Care Provider [phone] Allergies Active Allergy Reactions Criticality Noted Date Comments Sulfa Antibiotics Hives Medium 01/04/2019 Medications vitamin 27-1 MG Tab tablet Take 1 tablet by mouth daily. 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 Height 154.9 cm (5' 1 ) 09/01/2016 11:58 AM IT HELP DESK ASSOCIATE Body Mass Index 36.47 09/01/2016 11:58 AM IT HELP DESK ASSOCIATE Plan of Treatment Health Maintenance Due Date [...] Vaccine ( - 2023-2 5 season) 2024 DTaP, Tdap and Td Vaccines ( 2 [...] 5 Years) and At-Risk Patients (6 to 49 Years) Aged Out No longer eligi ble based on patient's age to complete this topic RSV Immunizations Under 20 Months Aged Out No longer eligible based on patient's age to complete this topic Insurance DONTAE Care Teams Training Designer Relationship Specialty Start Date End Date Joyce [place] [address] PCP - General NURSE PRACTITIONER 01/27/19
[2025-01-24 17:16] LABS: Syphilis IgG/IgM Antibody Negative (Negative)
[2025-01-24 17:17] LABS: Rubella IgG Antibody 21.8 IU/ML
[2025-01-24 17:28] LABS: HIV 1/2 Ab P24 Ag Result Negative (Negative)
[2025-01-24 17:37] LABS: Alanine Aminotransferase 14 U/L (6-35); Albumin Level 4.3 g/dL (3.5-5.1); Alkaline Phosphatase 72 U/L (38-126); Anion Gap 10 mmol/L (4-12); Aspartate Amino Transferase 19 U/L (14-36); Bilirubin,Total 0.2 mg/dL (0.2-1.3); Blood Urea Nitrogen 9 mg/dL (7-17); Calcium 9.5 mg/dL (8.4-10.2); Carbon Dioxide 24 mmol/L (22-30); Chloride 102 mmol/L (98-107); Estimated Glomerular Filt Rate > 60; Glucose 119 mg/dL (65-110); Potassium 3.8 mmol/L (3.4-5.0); Sodium 136 mmol/L (137-145)
[2025-01-24 17:40] LABS: Hepatitis B Surface Anti Res Positive; Hepatitis C Virus Antibody Negative (Negative)
[2025-01-24 18:08] LABS: Thyroid Stimulating Hormone 0.235 uIU/mL (0.465-4.680)
[2025-01-24 19:58] LABS: Hemoglobin A1C 6.6 % (<5.7)
[2025-01-25 18:54] LABS: Hematocrit 36.8 % (35.0-45.0); Hemoglobin 11.3 g/dL (11.7-15.5); MCH 23.8 pg (27.0-33.0); MCV 77.5 fL (80.0-100.0); RDW 15.6 % (11.0-15.0); Red Blood Cell Count 4.75 Million/uL (3.80-5.10)
== END 2025-01-24 15:05 | disposition home or self-care (01) ==
LOC: ANHLAB 15:06
PROVIDERS: PCP Physician Assistant Medical; Visit Provider Obstetrics & Gynecology
DX: Z34.90 Encounter for supervision of normal pregnancy, unspecified, unspecified trimester (principal); Z3A.00 Weeks of gestation of pregnancy not specified
CPT/HCPCS: 36415; 80053; 81003; 83021; 83036; 84443; 85027; 86593; 86703; 86706; 86762; 86787; 86803; 86850; 86900; 86901; 87086; G0432

== ENCOUNTER 2025-02-14 07:53 | Outpatient (CLI) | payer OTHER, SELFPAY ==
--- OUTSIDE RECORDS SUMMARY | 2025-02-14 07:56 | XMS_ITS | Clinical Summary ---
Author Organization [facility] [address] [facility] Address [address] [place] [address] Care Team Providers Care Denial Resolution Specialist Name Role Phone Antonio Baldwin Primary Care Provider [phone] Allergies Active Allergy Reactions Criticality Noted Date [...] physician, 15 mL 5 01/09/20 25 Active Active Problems Problem Noted Date Diagnosed Date [...] 02/01/2023 Assessment & Plan (09/24/2024 9:53 PM MANAGER FLIGHT): Chronic uncontrolled Intolerant to metformin Start trulicity [...] Work on low carb diet Refer to buyer renter Order a1c in 3mo Dyspnea 12/23/2022 Left foot pain 12/23/2022 Overview (12/23/2022): COnt diclofenac Cont podiatry Intractable migraine with aura without status mi grainosus 10/07/2022 Assessment & Plan (09/24/2024 9:52 PM MANAGER FLIGHT): Chronic stable and improving with quilipta. Continue [...] dosing Assessment & Plan (09/16/2023 4:00 PM MANAGER FLIGHT): Chronic condition Start quilipta Assessment & Plan (10/07/2022 10:23 AM MANAGER FLIGHT): Chronic uncontrolled Start quilipta Wrist sprain, right, [...] MRI Assessment & Plan (12/01/2021 12:34 PM MANAGER FLIGHT): Chronic with worsening pain Refer to naresh lockwood and treat Snoring 06/11/2021 Daytime somnolence 06/11/2021 Parasomnia 06/11/2021 BMI 40.0-44.9, adult 06/11/2021 Assessment & Plan (12/01/2021 12:42 PM MANAGER FLIGHT): Chronic condition not well controlled patient advised [...] 03/12/2021 Assessment & Plan (12/01/2021 12:42 PM MANAGER FLIGHT): Chronic condition order labs for evaluation Eczema of both hands 02/17/2021 Assessment & Plan (02/01/2023 12:56 PM CDT): Chronic and not well controlled Refill triamcinolone. Assessment & Plan (10/07/2022 10:30 AM MANAGER FLIGHT): Start triamcinolone tid prn hands Assessment & [...] 07/18/2020 Assessment & Plan (10/07/2022 10:31 AM MANAGER FLIGHT): Refer to hematology Family history of hemoglobin [...] 07/26/2017 Assessment & Plan (10/07/2022 10:31 AM MANAGER FLIGHT): Chronic Failed p.t. and xrays and nsaids [...] Encounters Date Type Department Care Team Description 01/24/2025 Orders Only [facility] Health Information Management [address] [place] [address] Antonio Baldwin PA 01/08/2025 Telephone [facility] Medical [facility] Family Medicine at [address] [place] [address] Antonio Baldwin PA Novolog PA 01/08/2025 Telephone [facility] Medical [facility] Family Medicine at [address] [place] [address] Antonio Baldwin PA PA for glucometer, test strips, lancets 12/29/2024 Telephone [facility] Medical [facility] Family Medicine at [address] [place] [address] Antonio Baldwin PA Medication Request 12/19/2024 Telephone [facility] [address] [place] [address] Health 4th Floor [address] [place] [address] Johana Estrella RN 12/06/2024 Orders Only [facility] Dermatology [address] [place] [address] [address] [place] [address] Blu Hayes MD 12/04/2024 Orders Only [facility] Dermatology [address] [place] [address] [address] [place] [address] Bul Hayes MD Rash (Primary Dx) 12/04/2024 Telephone [facility] [address] [facility] 4th Floor [address] [place] [address] Maya Granger Scheduling Appointments 11/30/2024 5:24 PM MANAGER FLIGHT - 11/30/2024 11:59 PM MANAGER FLIGHT Hospital Encounter [facility] [address] [place] [address] Discharge Disposition: Discharge to home or self care 11/30/2024 2:00 PM MANAGER FLIGHT Office Visit [facility] [address] [place] [address] 4th Floor [address] [place] [address] Blu Hayes MD Rash 11/30/2024 Orders Only [address] [address] Blu Hayes MD Rash 11/30/2024 Telephone [facility] Family Medicine at [address] [place] [address] Antonio Baldwin PA Appointment Request from [...] on file Legal Sex Female 11:27 PM MANAGER FLIGHT Gender Identity Female 08/08/2021 9:31 AM CDT Sexual Orientation Straight 08/08/2021 9: 31 AM CDT Obstetrics History Last Filed Vital Signs Vital Sign Reading Time Taken Comments Blood Pressure 114/82 09/22/2024 11:36 AM MANAGER FLIGHT Pulse 61 09/22/2024 11:36 AM MANAGER FLIGHT Temperature 36.5 C (97.7 F) 09/22/2024 11:36 AM MANAGER FLIGHT Respiratory Rate 18 09/22/2024 11:36 AM MANAGER FLIGHT Oxygen Saturation 99% 09/22/2024 11:36 AM MANAGER FLIGHT Inhaled Oxygen Concentration - - Weight 104.1 kg (229 lb 8 oz) 09/22/2024 11:36 A M MANAGER FLIGHT Height 157.5 cm (5' 2 ) 09/22/2024 11:36 AM MANAGER FLIGHT Body Mass Index 41.98 09/22/2024 11:36 AM MANAGER FLIGHT Plan of Treatment Health Maintenance Due Date [...] Urine 09/23/2025 09/23/2024 Lipid Panel 09/23/2025 09/23/2024, 04/01/2023, 10/07/2022, Additional history exists eGFR 09/23/2025 09/23/2024, [...] Procedure Name Priority Date/Time Associated Diagnosis Comments SCAN - LABS 01/24/2025 SURGICAL PATHOLOGY Routine 11/30/2024 2: 33 PM MANAGER FLIGHT Rash HEPATITIS C ANTIBODY Routine 09/23/2024 7:24 AM MANAGER FLIGHT Accident caused by hypodermic needle, subsequent encounter EGFR Routine 09/23/2024 7:24 AM MANAGER FLIGHT 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) HEMOGLOBIN A1C Routine 09/23/2024 7:24 AM MANAGER FLIGHT 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) LIPID PANEL Routine 09/23/2024 7:24 AM MANAGER FLIGHT 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) ALBUMIN CREATININE RATIO, URINE Routine 09/23/2024 7:20 AM MANAGER FLIGHT 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) from Last 3 Months or Most Recently Relevant to Health Maintenance Results * SCAN - LABS (01/24/2025) us Antonio BAPTISTE Final Result * Surgical pathology (11/30/2024 2:33 PM MANAGER FLIGHT) Tissue specimen (specimen) (Skin, biopsy) 11/30/2024 2:33 PM MANAGER FLIGHT 11/30/2024 4:18 PM MANAGER FLIGHT Narrative PATHOLOGY [facility] - 12/05/2024 3:57 PM MANAGER FLIGHT EPIC results best viewed via link to PDF [facility] Tawanna [facility] Laboratory of Surgical Pathology [facility], [place] [address] Note to Patients: This report may contain [...] Gender: F : 1995 (Age: 29) Address: [address] [place], [place] [id number] Hospital #: [id number] Taken:11/30/2024 Received:11/30/2024 Reported: 12/05/2024 Patient Type: [facility] [...] dermatopathology faculty who agrees with the diagnosis. /12/04/2024 08:41 By this signature, I attest that [...] Dermatopathology Center, Department of Pathology and Immunology, [facility], [facility], [address], [place] [address] CLIA # [id number] Sharonda Estevez M.D. History: The patient is [...] Surgical Pathology and Flow Cytometry Departments at [facility] as part of an ongoing chief quality officer program and in compliance with federally mandated [...] Surgical Pathology and Flow Cytometry Departments of [facility]. It has not been cleared or approved by the U. S. Food and Drug Administration. IMAGES AND SCANNED DOCUMENTS, IF INCLUDED, ONLY VIEWABLE IN PDF VERSION OF REPORT Blu Hayes MD LAB PATHOLOGY OR DERABLES Final Result PATHOLOGY [facility] 3rd Floor [place], [place] [phone] * eGFR (09/23/2024 7:24 AM MANAGER FLIGHT) eGFR >90 >=60 mL/min/1. 73 m2 Comment: [...] last reviewed 2021. Blood 09/23/2024 7:24 AM MANAGER FLIGHT 09/23/2024 9:41 AM MANAGER FLIGHT Antonio BAPTISTE LAB BLOOD ORDERABLES Final Resu lt [facility] [address] [facility] Department [place] [address] * Hepatitis C antibody Blood (09/23/2024 7:24 AM MANAGER FLIGHT) Pathologist [facility] Hep C Ab [...] revised on 2019. Blood 09/23/2024 7:24 AM MANAGER FLIGHT 09/23/2024 9:41 AM MANAGER FLIGHT Antonio BAPTISTE LAB MICROBIOLOGY - GENERAL ORDE [facility] Final Result Performing Organization Address [facility] de Phone Number [address] [place] [address] * (ABNORMAL) Hemoglobin A1c (09/23/2024 7:24 AM MANAGER FLIGHT) Pathologist [facility] Hgb A1C 6.7(H) 4.0 - 5.6 % Estimated Average Glucose 146 mg/dL [facility] Comment: The ADA recommends reporting an estimated Average Glucose (eAG) with all Hemoglobin A1c results using the equation derived from a study of 507 normal and diabetic adults. Minority populations were underrepresented and children were not included. (Diabetes Care 31:6836-6585, 2008). The eAG is not equivalent to a fasting glucose. Blood 09/23/2024 7:24 AM MANAGER FLIGHT 09/23/2024 9:40 AM MANAGER FLIGHT Antonio BAPTISTE LAB BLOOD ORDERABLES Final Resu lt Performing Organization Address [facility] Co de Phone Number [address] [place] [address] * (ABNORMAL) Lipid panel (09/23/2024 7:24 AM MANAGER FLIGHT) Cholesterol 142 30 - 199 mg/dL Comment: [...] ratio 4 [facility] Blood 09/23/2024 7:24 AM MANAGER FLIGHT 09/23/2024 9:41 AM MANAGER FLIGHT us Antoino BAPTISTE LAB BLOOD ORDERABLES Final Resu lt [facility] [address] [facility] Department [place] [address] * Albumin Creatinine Ratio, Urine (09/23/2024 7:20 AM MANAGER FLIGHT) Albumin Ur <12.0 mg/L Comment: Interpretive Data No reference range established. Current interpretive data was last revised 2019. Creatinine Ur 197.0 mg/dL [id number]|2025-02-14 07:57:00|2025-02-14 07:56:00|XMS_ITS|BKG DAFLORINAON|External Medical Summaries|[id number]|" Referral Summary Created on: February 14, 2025 Yenni Francois : 1995 Sex: Female Author Organization [facility] [address] [facility] Address [address] [place] [address] Care Team Providers Care Denial Resolution Specialist Name Role Phone Antonio Baldwin Primary Care Provider [phone] Encounters Date Type Department Care Team Description 01/24/2025 Orders Only [facility] Health Information Management [address] [place] [address] Antonio Baldwin PA 01/08/2025 Telephone [facility] Medical [facility] Family Medicine at [address] [place] [address] Antonio Baldwin PA Novolog PA 01/08/2025 Telephone [facility] Medical [facility] Family Medicine at [address] [place] [address] Antonio Baldwin PA PA for glucometer, test strips, lancets 12/29/2024 Telephone [facility] Medical [facility] Family Medicine at [address] [place] [address] Antonio Baldwin PA Medication Request 12/19/2024 Telephone [facility] [address] [place] [address] Health 4th Floor [address] [place] [address] Johana Estrella RN 12/06/2024 Orders Only [facility] Dermatology [address] [place] [address] Health [address] [place] [address] Blu Hayes MD 12/04/2024 Orders Only [facility] Dermatology [address] [place] [address] [address] [place] [address] Blu Hayes MD Rash (Primary Dx) 12/04/2024 Telephone [facility] [address] [place] [address] 4th Floor [address] [place] [address] Maya Granger Scheduling Appointments 11/30/2024 Orders Only [address] [address] Blu Hayes MD Rash 11/30/2024 5:24 PM MANAGER FLIGHT - 11/30/2024 11:59 PM MANAGER FLIGHT Hospital Encounter [address] [address] Discharge Disposition: Discharge to home or self care 11/30/2024 Telephone [facility] Family Medicine at [address] [place] [address] Antonio Baldwin PA Appointment Request 11/30/2024 2:00 PM MANAGER FLIGHT Office [facility] [address] [place] [address] Floor [address] [place] [address] Blu Hayes MD Rash from Last 3 [...] physician, 15 mL 5 01/09/20 25 Active Active Problems Problem Noted Date Diagnosed Date [...] 02/01/2023 Assessment & Plan (09/24/2024 9:53 PM MANAGER FLIGHT): Chronic uncontrolled Intolerant to metformin Start trulicity [...] Work on low carb diet Refer to buyer renter Order a1c in 3mo Dyspnea 12/23/2022 Left foot pain 12/23/2022 Overview (12/23/2022): COnt diclofenac Cont podiatry Intractable migraine with aura without status mi grainosus 10/07/2022 Assessment & Plan (09/24/2024 9:52 PM MANAGER FLIGHT): Chronic stable and improving with quilipta. Continue [...] dosing Assessment & Plan (09/16/2023 4:00 PM MANAGER FLIGHT): Chronic condition Start quilipta Assessment & Plan (10/07/2022 10:23 AM MANAGER FLIGHT): Chronic uncontrolled Start quilipta Wrist sprain, right, [...] MRI Assessment & Plan (12/01/2021 12:34 PM MANAGER FLIGHT): Chronic with worsening pain Refer to naresh lockwood and treat Snoring 06/11/2021 Daytime somnolence 06/11/2021 Parasomnia 06/11/2021 BMI 40.0-44.9, adult 06/11/2021 Assessment & Plan (12/01/2021 12:42 PM MANAGER FLIGHT): Chronic condition not well controlled patient advised [...] 03/12/2021 Assessment & Plan (12/01/2021 12:42 PM MANAGER FLIGHT): Chronic condition order labs for evaluation Eczema of both hands 02/17/2021 Assessment & Plan (02/01/2023 12:56 PM CDT): Chronic and not well controlled Refill triamcinolone. Assessment & Plan (10/07/2022 10:30 AM MANAGER FLIGHT): Start triamcinolone tid prn hands Assessment & [...] 07/18/2020 Assessment & Plan (10/07/2022 10:31 AM MANAGER FLIGHT): Refer to hematology Family history of hemoglobin [...] 07/26/2017 Assessment & Plan (10/07/2022 10:31 AM MANAGER FLIGHT): Chronic Failed p.t. and xrays and nsaids [...] on file Legal Sex Female 11:27 PM MANAGER FLIGHT Gender Identity Female 08/08/2021 9:31 AM CDT Sexual Orientation Straight 08/08/2021 9: 31 AM CDT Last Filed Vital Signs Vital Sign Reading Time Taken Comments Blood Pressure 114/82 09/22/2024 11:36 AM MANAGER FLIGHT Pulse 61 09/22/2024 11:36 AM MANAGER FLIGHT Temperature 36.5 C (97.7 F) 09/22/2024 11:36 AM MANAGER FLIGHT Respiratory Rate 18 09/22/2024 11:36 AM MANAGER FLIGHT Oxygen Saturation 99% 09/22/2024 11:36 AM MANAGER FLIGHT Inhaled Oxygen Concentration - - Weight 104.1 kg (229 lb 8 oz) 09/22/2024 11:36 A M MANAGER FLIGHT Height 157.5 cm (5' 2 ) 09/22/2024 11:36 AM MANAGER FLIGHT Body Mass Index 41.98 09/22/2024 11:36 AM MANAGER FLIGHT Plan of Treatment Not on file Procedures Procedure Name Priority Date/Time Associated Diagnosis Comments SCAN - LABS 01/24/2025 SURGICAL PATHOLOGY Routine 11/30/2024 2: 33 PM MANAGER FLIGHT Rash HEPATITIS C ANTIBODY Routine 09/23/2024 7:24 AM MANAGER FLIGHT Accident caused by hypodermic needle, subsequent encounter EGFR Routine 09/23/2024 7:24 AM MANAGER FLIGHT 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) HEMOGLOBIN A1C Routine 09/23/2024 7:24 AM MANAGER FLIGHT 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) LIPID PANEL Routine 09/23/2024 7:24 AM MANAGER FLIGHT 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) ALBUMIN CREATININE RATIO, URINE Routine 09/23/2024 7:20 AM MANAGER FLIGHT 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) from Last 3 Months or Most Recently Relevant to Health Maintenance Results * SCAN - LABS (01/24/2025) Antonio BAPTISTE Final Result * Surgical pathology (11/30/2024 2:33 PM MANAGER FLIGHT) Tissue specimen (specimen) (Skin, biopsy) 11/30/2024 2:33 PM MANAGER FLIGHT 11/30/2024 4:18 PM MANAGER FLIGHT Narrative PATHOLOGY [facility] - 12/05/2024 3:57 PM MANAGER FLIGHT EPIC results best viewed via link to PDF [facility] Tawanna Doe [facility] [place] [address] Note to Patients: This report may contain [...] Gender: F : 1995 (Age: 29) Address: [address] [place] [address] Hospital #: [id number] Taken:11/30/2024 Received:11/30/2024 Reported: 12/05/2024 Patient Type: [facility] [...] Dermatopathology Center, Department of Pathology and Immunology, [facility], [address] [place] [address], [address], [place] [address] CLIA # [id number] Sharonda Estevez M.D. History: The patient is [...] specimen is bisected. Labeled A1. Jar [facility]. [facility]/30/2024 17:58 PA(s): Pamela Solis By this signature, I attest that the above diagnosis is based upon my personal examination of the slides(and/or other material). Addenda/Procedures The performance characteristics of some immunohistochemical stains, fluorescence in-situ hybridization tests and immunophenotyping by flow cytometry cited in this report (if any) were determined by the Surgical Pathology and Flow Cytometry Departments at [facility] as part of an ongoing chief quality officer program and in compliance with federally mandated [...] Surgical Pathology and Flow Cytometry Departments of [facility]. It has not been cleared or approved by the U. S. Food and Drug Administration. IMAGES AND SCANNED DOCUMENTS, IF INCLUDED, ONLY VIEWABLE IN PDF VERSION OF REPORT Blu Hayes MD LAB PATHOLOGY OR DERABLES Final Result PATHOLOGY [facility] 3rd Floor [place], [place] [phone] * eGFR (09/23/2024 7:24 AM MANAGER FLIGHT) eGFR >90 >=60 mL/min/1. 73 m2 Comment: [...] last reviewed 2021. Blood 09/23/2024 7:24 AM MANAGER FLIGHT 09/23/2024 9:41 AM MANAGER FLIGHT us Antonio BAPTISTE LAB BLOOD ORDERABLES Final Resu lt [facility] [address] [facility] Department [place] [address] * Hepatitis C antibody Blood (09/23/2024 7:24 AM MANAGER FLIGHT) Hep C Ab Nonreactive Nonreactive Comment: Antibodies [...] revised on 2019. Blood 09/23/2024 7:24 AM MANAGER FLIGHT 09/23/2024 9:41 AM MANAGER FLIGHT Antonio BAPTISTE LAB [facility] Final Result Performing Organization Address [facility] de Phone Number [id number] [employer] [place], [place] [phone] * (ABNORMAL) Hemoglobin A1c (09/23/2024 7:24 AM MANAGER FLIGHT) Hgb A1C 6.7(H) 4.0 - 5.6 % Estimated Average Glucose 146 mg/dL [facility] Comment: The ADA recommends reporting an estimated Average Glucose (eAG) with all Hemoglobin A1c results using the equation derived from a study of 507 normal and diabetic adults. Minority populations were underrepresented and children were not included. (Diabetes Care 31:4664-1653, 2008). The eAG is not equivalent to a fasting glucose. Blood 09/23/2024 7:24 AM MANAGER FLIGHT 09/23/2024 9:40 AM MANAGER FLIGHT Antonio BAPTISTE LAB BLOOD ORDERABLES Final Resu lt Performing Organization Address [facility] de Phone Number [facility] [address] [facility] [place] [address] * (ABNORMAL) Lipid panel (09/23/2024 7:24 AM MANAGER FLIGHT) Cholesterol 142 30 - 199 mg/dL Comment: [...] ratio 4 [facility] Blood 09/23/2024 7:24 AM MANAGER FLIGHT 09/23/2024 9:41 AM MANAGER FLIGHT us Antonio BAPTISTE LAB BLOOD ORDERABLES Final Resu lt Performing Organization Address City/[facility] de Phone Number [facility] [address] [facility] Department of Laboratories [place], [place] [phone] * Albumin Creatinine Ratio, Urine (09/23/2024 7:20 AM MANAGER FLIGHT) Albumin Ur <12.0 mg/L Comment: Interpretive Data No reference range established. Current interpretive data was last revised 2019. Creatinine Ur 197.0 mg/dL [facility] Comment: Interpretive Data No reference range established. Current interpretive data was last revised 2019. Albumin Creatinine Ratio, Ur <6 1 - 29 mg/g [facility] Urine 09/23/2024 7:20 AM MANAGER FLIGHT 09/23/2024 9:37 AM MANAGER FLIGHT us Antonio BAPTISTE LAB URINE ORDERABLES Final Resu lt Performing Organization Address City/State/[facility] Co de Phone Number CERNER [facility] [address] [facility] [place] [address] from Last 3 Months or Most Recently Relevant to Health Maintenance Insurance [facility] * Guarantor: [facility] [employer] Account Type Relation to Patient Date of Phone Billing Address Third Alliance Party Liability Other Care Teams Denial Resolution Specialist Relationship Specialty Start Date End Date Antonio Baldwin PA [address] [facility] [address] [address] PCP - General Family Medicine 07/01/22 "
--- OUTSIDE RECORDS SUMMARY | 2025-02-14 07:56 | XMS_ITS | Clinical Summary ---
Author Organization [facility] Address [address] [place] [address] Care Team Providers Care Cuff Setter Overlock Name Role Phone Unavailable Primary Care Provider Unavailabl e Source Comments [facility],non-owned Affiliates and Associated Physician Practices is amultiple site organization consisting of ambulatory clinics and hospital sitesin [place], [place], [place] and [place]. This disclosure is being madepursuant to the Care Everywhere program and may not contain all information available regarding this patient. Last updated 18.[facility] Concurrent Thinking Allergies Active Allergy Reactions Criticality Noted Date Comments Sulfa Drugs Unknown High 04/19/2020 Medications * Be aware that medications may not be up to date on this document. Alwaysverify current medications with the patient. cetirizine (ZYRTEC) 10 MG tabletIndications: Allergic rhinitis Take 1 Tab by mouth at bedtime. 30 3 01/15/20 10 Active fluticasone propionate (FLUTICASONE PROPIONATE) 50 MCG/ACT nasal sprayIndications:A llergic rhinitis [place] 2 Sprays into each nostril daily. 1 3 01/15/20 10 Active fluticasone hfa 44 (FLOVENT HFA 44) 44 MCG/ACT inhalerIndications :Extrinsic asthma, unspecified (HCC) Inhale 2 Puffs by mouth 2 times daily. 1 3 01/15/20 10 Active albuterol HFA (PROVENTIL;VENTOLI N;PROAIR) 108 (90 BASE) MCG/ACT inhalerIndications :Extrinsic asthma, unspecified (HCC) Inhale 2 Puffs by mouth every 4 hours as needed for Shortness of Breath, Wheezing and Cough. 1 3 01/15/20 10 Active olopatadine (PATADAY) 0.2 % ophthalmic solutionIndication s:Other chronic allergic conjunctivitis 1 Drop daily. 2.5 mL 2 01/16/20 10 Active Glucagon (Baqsimi One Pack) 3 MG/DOSE POWD [place] 1 Each into the nose as needed For emergency use only 1 Each 02/08/20 25 Active insulin glargine (Lantus/Semglee) 100 units/mL pen Inject 8 units at bedtime. Take dosages approximately same time each evening. Increase dose as directed due to increasing insulin requirements during . Max total daily dose = 50u 15 mL 5 02/08/20 25 Active insulin pen needle (Novofine) 32G X 6 MM MISCIndications:Ty pe 2 diabetes mellitus in , first trimester (HCC) 1 (one) Each by Injection route once daily 100 Each 5 02/08/20 25 Active Encounters Date Type Department Care Team Description 01/31/2025 12:41 PM CDT - 01/31/2025 11:59 PM CDT Hospital Encounter [facility] [address] [place] [address] Margarito He MD Discharge Disposition: Home or Self Care from Last 3 Months Social History Tobacco Use Types Packs/Day Years Used Date Smoking Tobacco: Never Assessed Estimated Date of Delivery Comme nts Yes 08/16/2025 Based on Ultraso und, Irregular Cycles Sex and Gender Information Value Date Recorded Sex Assigned at Not on file Legal Sex Female 5:40 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 Gender Identity Not on file Sexual Orientation Not on file Last Filed Vital Signs Vital Sign Reading Time Taken Comments Blood Pressure 111/69 01/31/2025 1:24 PM CDT Pulse 80 01/31/2025 1:24 PM CDT Temperature - - Respiratory Rate - - Oxygen Saturation - - Inhaled Oxygen Concentration - - Weight 108 kg (238 lb) 01/31/2025 1:24 PM CDT Height - - Body Mass Index - - Plan of Treatment Upcoming Encounters Date Type Department Care Team (Late st Contact Info) Description 03/09/2025 7:30 AM CDT Appointment [facility] [address] [place] [address] Health Maintenance Due Date Last Done Comments PAP SMEAR 1993 HIV SCREENING 01/04/2008 HEPATITIS C SCREENING 12/30/2010 DTAP/TDAP/TD VACCINES (1 - Tdap) 01/04/2012 HEPATITIS B VACCINE (1 of 3 - 19+ 3-dose series) 01/04/2012 COVID-19 VACCINE (3 - season) 2024 06/14/2021, 05/24/2021 DEPRESSION SCREENING 10/04/2024 Respiratory Syncytial Virus (RSV) Vaccine Pt: or over 60 yrs (1 - Risk 1-dose series) 06/21/2025 ZOSTER VACCINE (1 of 2) 2043 INFLUENZA [...] Procedure Name Priority Date/Time Associated Diagnosis Comments SONOGRAM - COMPLETE Routine 01/31/2025 12:51 PM CDT Type 2 diabetes mellitus in , first trimester (HCC) Encounter for (NT) nuchal translucency scan (HCC) from Last 3 Months Results * SONOGRAM - COMPLETE (01/31/2025 12:51 PM CDT) Linked Results Indication ======== Type II Diabetes Class III Obesity History ====== OB History 4. Para 2 [id number] 1. live 2015. Gest. age 39 w + 0 d. Weight 3,742 g. Sex of child: female. Details: Vaginal delivery 2. miscarriage 2018 3. live 2019. Gest. age 39 w + 0 d. Weight 3,685 g. Sex of child: male. Details: delivery; Intolerance Lab Tests Test Date Result Not performed Maternal Assessment Physical Exam Height 160 cm, 5 ft 3 in. Weight 108 kg, 238 lb. Initial weight 109 kg, 241 lb. BMI 42.16 kg/m . Initial BMI 42.69 kg/m . Weight gain -1 kg, -3 lb Method ====== Transabdominal ultrasound. View: Sufficient ========= Garcia . Number of fetuses: 1 Dating ====== Date Details Gest. age JOHN LMP 11/04/2024 Cycle: irregular cycle 12 w + 4 d 08/11/2025 Stated JOHN 11 w + 6 d 08/16/2025 Previous U/S 12/26/2024 CRL 7.9 mm 11 w + 6 d 08/16/2025 U/S 01/31/2025 based upon CRL 12 w + 0 d 08/15/2025 Assigned dating based on ultrasound (CRL), selected on 01/31/2025 11 w + 6 d 08/16/2025 General Evaluation Cardiac activity present Amniotic fluid: normal Biometry FHR 166 bpm CRL 54.1 mm 12w 0d 47% Hadlock Anatomy Face: nasal bone suboptimal. The following structures appear normal: Cranium. Neck. Abdominal wall. Stomach. Bladder. Arms. Legs. The following structures could not be adequately visualized: Kidneys. Impression ========= * Garcia IUP at 11 weeks of gestation by stated EDC from early U/S * Referred to [facility] for obstetrical U/S & request for consult secondary to: Diabetes mellitus Type II Pre- obesity Class III, BMI >=40 Prior section (C/S) x1 * Today's ultrasound (U/S) findings: Living garcia intrauterine fetus [place] rump length (CRL) is normal-range Amniotic fluid volume appears normal COUNSELING & RECOMMENDATIONS (PLEASE SEE FULL CONSULT IN EPIC) * In my best medical opinion, I would advise: Please also see today's separate note from our [facility] Foil Spinner Follow-up with our [facility] Foil Spinner to review CBGs & DM management in 1 week Low-dose aspirin (162 mg/day) preeclampsia prophylaxis, start at 12 weeks Laboratory evaluation, if not recently done, to be done in OB office: HgbA1c Proteinuria assessment: a 24-hour urine and protein-creatinine ratio (PCR) Thyroid function tests (TSH & FT4) genetic screening tests were discussed cf-DNA non-invasive screen (NIPS) apparantly is not covered by insurance Consider multiple marker screen (MMS) @ 15-18 weeks Maternal limited carrier screening for genetic conditions (if not previously done) Cystic fibrosis (CF) should be offered to all women Spinal muscular atrophy (SMA) should be offered to all women Hemoglobinopathy testing offered to all women (2021 ACOG Practice Advisory) Follow-up U/S for growth & AFV & development every 4 weeks echocardiogram (for MC twins) by Pediatric Cardiology at 24 weeks Start 2x-weekly NST and 1x-weekly BPP at 32 weeks Delivery planning (timing, mode, location): too early to determine at present Follow-up ======== U/S 4 weeks Coding ====== Procedures [id number]: 1st Trimester [facility] DFMSim PACS Anatomical Region Laterality Modality Other 01/31/2025 12:5 1 PM CDT Jeramie Lassiter MD [facility] ORDERABLES Edited Result - Final from Last 3 Months Insurance [facility]
--- OUTSIDE RECORDS SUMMARY | 2025-02-14 07:57 | XMS_ITS | Encounter Summary ---
Author Organization [facility] Facility Care Team Providers Care Change Management Consultant Name Role Phone Phillip Coker MD Primary Care Provider [phone] Antonio Baldwin Primary Care Provider [phone] Encounter Details Date Type Department Care Team (Latest Contact Info) Description 10/28/2018 Orders Only [facility] CLINCON[facility] ProviderPérez MD [address] [place] [address] Social History Tobacco Use Types Packs/Day Years Used Date Smoking Tobacco: Never Assessed Comments Unknown Sex and Gender Information Value Date Recorded Sex Assigned at Not on file Legal Sex Female 11:27 PM 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 Historical Provider [facility] MARTHA HARDING Final Result documented in this encounter Visit Diagnoses Not on filedocumented in this encounter Additional Health Concerns Infection Onset Date Last Indicated Resolved Time COVID: Suspected 09/01/2021 09/01/2021 09/02/2021 1:03 AM JUVENILE JUSTICE OFFICER COVID: Suspected 10/01/2021 10/01/2021 10/02/2021 4:52 AM JUVENILE JUSTICE OFFICER COVID19 10/01/2021 10/01/2021 10/15/2021 3:07 AM JUVENILE JUSTICE OFFICER COVID: Recovered Comment:Added based on recent COVID infection. 10/15/2021 10/20/2021 02/12/2022 3:05 AM C DT COVID: Suspected 12/11/2021 12/11/2021 12/12/2021 12:07 AM JUVENILE JUSTICE OFFICER COVID: Suspected 06/21/2023 06/21/2023 06/21/2023 3:30 PM CDT COVID: Suspected 06/21/2023 06/21/2023 06/21/2023 6:32 PM CDT documented as of this encounter Care Teams Change Management Consultant Relationship Specialty Start Date End Date Phillip Coker MD PCP - General 12/30/18 06/30/22 Antonio Baldwin PA [address] [facility] [address] [address] PCP - General Family Medicine 07/01/22 documented as of this encounter
--- OUTSIDE RECORDS SUMMARY | 2025-02-14 07:57 | XMS_ITS | Encounter Summary ---
Author Organization [facility] Care Team Providers Care Box Maker Paperboard Name Role Phone Phillip Coker MD Primary Care Provider [phone] Antonio Baldwin Primary Care Provider [phone] Encounter Details Date Type Department Care Team (Latest Contact Info) Description 07/20/2017 Orders Only [facility] CLINCONV Provider, MD Pérez [address] [place] [address] Social History Tobacco Use Types Packs/Day Years Used Date Smoking Tobacco: Never Assessed Comments Unknown Sex and Gender Information Value Date Recorded Sex Assigned at Not on file Legal Sex Female 11:27 PM GEOLOGICAL SPECIALIST Gender Identity Female 08/08/2021 9:31 AM [...] COVID: Suspected 09/01/2021 09/01/2021 09/02/2021 1:03 AM GEOLOGICAL SPECIALIST COVID: Suspected 10/01/2021 10/01/2021 10/02/2021 4:52 AM GEOLOGICAL SPECIALIST COVID19 10/01/2021 10/01/2021 10/15/2021 3:07 AM GEOLOGICAL SPECIALIST COVID: Recovered Comment:Added based on recent COVID infection. 10/15/2021 10/20/2021 02/12/2022 3:05 AM C DT COVID: Suspected 12/11/2021 12/11/2021 12/12/2021 12:07 AM GEOLOGICAL SPECIALIST COVID: Suspected 06/21/2023 06/21/2023 06/21/2023 3:30 PM CDT COVID: Suspected 06/21/2023 06/21/2023 06/21/2023 6:32 PM CDT documented as of this encounter Care Teams Box Maker Paperboard Relationship Specialty Start Date End Date Phillip Coker MD PCP - General 12/30/18 06/30/22 Antonio Baldwin PA [address] [facility] [address] [address] PCP - General Family Medicine 07/01/22 documented as of this encounter
--- OUTSIDE RECORDS SUMMARY | 2025-02-14 07:57 | XMS_ITS | Encounter Summary ---
Author Organization [facility] Healthcare Address [address] [place] [address] Care Team Providers Care Drapery Sewer Hand Name Role Phone Phillip Coker MD Primary Care Provider [phone] Antonio Baldwin Primary Care Provider [phone] Reason for Visit * Reason Onset Date Comments No Show 01/15/2022 I called patient and she states that she will be in attendance tomorrow for her next scheduled visit. 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
--- OUTSIDE RECORDS SUMMARY | 2025-02-14 07:57 | XMS_ITS | Clinical Summary ---
Author Organization [facility] Address [facility] [place] [address] Care Team Providers Care Functional Mental Disability Teacher Name Role Phone MiloJoyce sarabia LANNY Primary Care Provider [phone] Allergies Active Allergy Reactions Criticality Noted Date [...] 87.5 kg (193 lb) 09/01/2016 11:58 AM CELL OPERATION SUPERVISOR Height 154.9 cm (5' 1 ) 09/01/2016 11:58 AM CELL OPERATION SUPERVISOR Body Mass Index 36.47 09/01/2016 11:58 AM CELL OPERATION SUPERVISOR Plan of Treatment Health Maintenance Due [...] complete this topic Insurance DONTAE Care Teams Functional Mental Disability Teacher Relationship Specialty Start Date End Date Joyce [place] [address] PCP - General NURSE PRACTITIONER 01/27/19
[2025-02-14 08:50] LABS: Free T4 Free Thyroxine 1.26 ng/dL (0.78-2.19)
== END 2025-02-14 07:54 | disposition home or self-care (01) ==
LOC: ANHLAB 07:54
PROVIDERS: PCP Physician Assistant Medical; Visit Provider Obstetrics & Gynecology
DX: R79.89 Other specified abnormal findings of blood chemistry (principal)
CPT/HCPCS: 36415; 84439

== ENCOUNTER 2025-04-07 13:24 | Observation (INO) | payer OTHER, SELFPAY ==
--- OUTSIDE RECORDS SUMMARY | 2025-04-07 13:30 | XMS_ITS | Clinical Summary ---
Author Organization [facility] Address [facility] [place] [address] Care Team Providers Care Crawler Dragline Operator Name Role Phone MiloJoyce sarabia LANNY Primary Care Provider [phone] Allergies Active Allergy Reactions Criticality Noted Date [...] 87.5 kg (193 lb) 09/01/2016 11:58 AM FLOWER POT PRESS OPERATOR Height 154.9 cm (5' 1) 09/01/2016 11:58 AM FLOWER POT PRESS OPERATOR Body Mass Index 36.47 09/01/2016 11:58 AM FLOWER POT PRESS OPERATOR Plan of Treatment Health Maintenance Due Date [...] complete this topic Insurance DONTAE Care Teams Crawler Dragline Operator Relationship Specialty Start Date End Date [place] [address] PCP - General NURSE PRACTITIONER 01/27/19
[2025-04-07 14:04] VITALS: BMI 37.0
--- NOTE | 2025-04-07 14:04 | OBADM ---
This patient, Yenni Francois, admitted to the OB room OB Post 116 for observation. Patient/family oriented to hospital policies and general routines including ID bracelet, bed and alarms, visiting hours, pain management, procedures, bathroom and other care routines, personal items, smoking policy, room service/diet, and visiting hours. Patient/Family are encouraged to report perceived risks to care and to ask questions if they do not understand what they are told or what they should do.
[2025-04-07 14:25] LABS: Add Urine Microscopic? YES; Appearance Urine Cloudy (Clear); Glucose Urine UA Trace mg/dL (Negative); Leukocyte Esterase Ur Trace LEU/UL (Negative); Nitrate Urine Negative (Negative); Non Pathogenic Casts 0-2; Specific Grav Ur 1.026 (1.001-1.035)
--- NOTE | 2025-05-01 16:33 | P.PNOB_ITS ---
OB - Triage/Final Diagnosis Visit Information Comments/Additional reasons for admission: I have assessed the risk for this patient, Yenni Francois, and determined that she would benefit from observation care. Evaluation Laboratory results: Laboratory Tests 04/07/25 13:56 Urine Color Yellow Urine Appearance Cloudy H Urine pH 6.5 Ur Specific [place] 1.026 Urine Protein Negative Urine Glucose (UA) Trace H Urine Ketones Trace H Ur Blood (Man) Negative Urine Nitrate Negative Urine Bilirubin Negative Urine Urobilinogen 2.0 H Leukocyte Esterase Rfl Trace H Urine RBC 3-5 H Urine WBC 6-10 H Ur Squamous Epith Cells Many H Urine Bacteria 1+ H Urine Casts 0-2 Final Diagnosis (1) Abdominal pain affecting : Code(s): O26.899 - Other specified related conditions, unspecified trimester; R10.9 - Unspecified abdominal pain Status: Acute
== END 2025-04-07 15:00 | disposition home or self-care (01) ==
PROVIDERS: Admitting Provider Obstetrics & Gynecology; PCP Physician Assistant Medical; Visit Provider Obstetrics & Gynecology
DX: O26.892 Other specified pregnancy related conditions, second trimester (principal); R10.9 Unspecified abdominal pain; Z3A.21 21 weeks gestation of pregnancy
CPT/HCPCS: 81001; G0378; G0379

== ENCOUNTER 2025-04-13 15:35 | Emergency (ER) | payer OTHER, SELFPAY ==
[2025-04-13 15:47] VITALS: BP 111/68; PULSE 74; RESP 16; TEMP 36.2; O2SAT 100
--- NOTE | 2025-04-13 16:06 | ED.GENADULT ---
HPI - General Adult General Chief complaint: Unspecified Stated complaint: decreased movement Time Seen by Provider: 04/13/25 15:56 Source: patient and RN notes reviewed Mode of arrival: ambulatory Limitations: no limitations History of Present Illness HPI narrative: Patient presents today complaining of decreased movement today. She is currently 22 weeks, , patient of Dr. Ashley. States she felt her baby move this morning, but was busy at work all day and does not believe she felt her baby all day at work. Denies abdominal pain, vaginal discharge or bleeding. heart tones upon arrival were 145-150. Related Data Home Medications ?Medication ?Instructions ?Recorded ?Confirmed ?Last Taken ?Type vitamin#30 30 mg iron-10 1 cap PO DAILY 12/29/24 04/07/25 04/07/25 History mg iron-folic acid 1 mg-omg3 capsule insulin glargine 100 unit/mL 12 unit subcut QAM 04/07/25 04/07/25 04/07/25 History subcutaneous solution (Lantus U-100 Insulin) insulin glargine 100 unit/mL 12 unit subcut QPM 04/07/25 04/07/25 04/06/25 History subcutaneous solution (Lantus U-100 Insulin) insulin lispro 100 unit/mL 4 unit subcut QACDINNER 04/07/25 04/07/25 04/06/25 History subcutaneous cartridge (Humalog U-100 Insulin) insulin lispro 100 unit/mL 4 unit subcut QACLUNCH 04/07/25 04/07/25 04/06/25 History subcutaneous cartridge (Humalog U-100 Insulin) Allergies Allergy/AdvReac Type Severity Reaction Status Date / Time Sulfa (Sulfonamide Allergy Mild Hives Verified 04/13/25 15:53 Antibiotics) [facility] Past Medical History Medical History Diabetes History of miscarriage Allergies Headache GERD (gastroesophageal reflux disease) Pneumonia Surgical History Surgical History History of section History of facial surgery lip surgery Family History Family History Other Cancer Diabetes mellitus Heart disease Hypertension Thyroid disorder Social History Social History Smoking status: Never smoker Second hand tobacco smoke exposure: No Alcohol intake: never Substance use: never Substance use type: does not use Do You Feel Safe in your Home?: Yes Lack of Transportation: No Lack of Food: Never True Current Housing: I Have Housing Concerned About Future Housing: No Difficulty Paying Gas/Electric Bills: No Difficulty Paying for Meds: No Currently Unemployed: No Education: Associate Degree Difficulty w/ Childcare or Family Care: No Gender identity (if verbalized by the patient): Female Sexual Orientation (if Verbalized by the Patient): Straight or Heterosexual Spiritual care concerns: No Comments At time of signature, I have reviewed and agree with nursing past medical, surgical, social and family history unless otherwise noted. Please see nursing chart for further information. There is no relevant family history pertinent to the presenting complaint Exam Narrative: GENERAL: Well-appearing, well-nourished, and in no acute distress. HEAD: Normocephalic, atraumatic. EYES: EOMI. No redness or drainage. Conjunctivae normal. ENT: Mucous membranes pink and moist. NECK: Normal AROM. CHEST: No respiratory distress. Clear to auscultation. HEART: Regular rate and rhythm. No murmur appreciated. ABDOMEN: Soft, nontender, normal active bowel sounds. EXTREMITIES: Normal range of motion. No edema. SKIN: Warm, dry, no rash. Capillary refill normal. Normal skin turgor. NEURO: No focal deficits. Alert and oriented x3. Gait steady. PSYCH: Normal affect. No signs of depression or anxiety. Course Course Emergency Course: heart tones 145-150 Level of Care: Express Care Visit Vital Signs Vital signs: Vital Signs Temperature 97.2 F L 04/13/25 15:47 Pulse Rate 74 04/13/25 15:47 Respiratory Rate 16 04/13/25 15:47 Blood Pressure 111/68 04/13/25 15:47 Pulse Oximetry 100 04/13/25 15:47 Temperature 97.2 F L 04/13/25 15:47 Pulse Rate 74 04/13/25 15:47 Respiratory Rate 16 04/13/25 15:47 Blood Pressure 111/68 04/13/25 15:47 Pulse Oximetry 100 04/13/25 15:47 Reviewed Medical Decision Making MDM Narrative Medical decision making narrative: 30-year-old female patient presents complaining of decreased movement. She is 22 weeks, . Denies pain, vaginal discharge or bleeding. History of diabetes. heart tones 145-150. After drinking some cold water here at [facility], patient states she did feel some movement. Patient will be discharged and [facility]. Report given to Clarice in OB. Vital Signs Vital Signs: Vital Signs Temperature 97.2 F L 04/13/25 15:47 Pulse Rate 74 04/13/25 15:47 Respiratory Rate 16 04/13/25 15:47 Blood Pressure 111/68 04/13/25 15:47 Pulse Oximetry 100 04/13/25 15:47 Temperature 97.2 F L 04/13/25 15:47 Pulse Rate 74 04/13/25 15:47 Respiratory Rate 16 04/13/25 15:47 Blood Pressure 111/68 04/13/25 15:47 Pulse Oximetry 100 04/13/25 15:47 Critical Care Time Critical Care Time Critical Care Time: No Discharge Plan Discharge Clinical Impression: Decreased movement Qualifiers: Fetus number: single or unspecified fetus Trimester: second trimester Qualified Code(s): O36.8120 - Decreased movements, second trimester, not applicable or unspecified Patient Disposition: Acute Care Hospital Condition: Stable Additional Instructions: Please proceed directly to the OB floor for further evaluation. Patient Language: Djiboutian Prescriptions: No Action PNV #[id number] 30 mg iron-10 mg iron-1 mg capsule 1 cap PO DAILY (DME) Dexcom G7 Sensor Device See Rx Instructions .MEDSUPPLY Qty: 1 4RF Rx Instructions: Apply sensor for 10 days insulin glargine [Lantus U-100 Insulin] 100 unit/mL solution 12 unit subcut QAM insulin glargine [Lantus U-100 Insulin] 100 unit/mL solution 12 unit subcut QPM Humalog U-100 Insulin 100 unit/mL cartridge 4 unit subcut QACLUNCH Humalog U-100 Insulin 100 unit/mL cartridge 4 unit subcut QACDINNER ondansetron HCl 4 mg tablet 4 mg PO Q6H PRN (Reason: nausea and vomiting) Qty: 20 0RF Follow-up/Referrals: Jeramie Ashley MD [Primary Care Provider] - Time of Disposition: 16:03
== END 2025-04-13 16:04 | disposition short-term general hospital (02) ==
PROVIDERS: Emergency Provider Nurse Practitioner; PCP Obstetrics & Gynecology
DX: O36.8120 Decreased fetal movements, second trimester, not applicable or unspecified (principal); Z3A.22 22 weeks gestation of pregnancy; O24.912 Unspecified diabetes mellitus in pregnancy, second trimester; Z79.4 Long term (current) use of insulin
CPT/HCPCS: 99212; G0463

== ENCOUNTER 2025-05-14 08:11 | Outpatient (CLI) | payer OTHER, SELFPAY ==
--- OUTSIDE RECORDS SUMMARY | 2025-05-14 08:16 | XMS_ITS | Clinical Summary ---
Author Organization [facility] Address [facility] [place] [address] Care Team Providers Care Pilot Highway Patrol Name Role Phone MiloJoyce sarabia LANNY Primary Care Provider [phone] Allergies Active Allergy Reactions Criticality Noted Date [...] 87.5 kg (193 lb) 09/01/2016 11:58 AM OVEN DRIER TENDER Height 154.9 cm (5' 1) 09/01/2016 11:58 AM OVEN DRIER TENDER Body Mass Index 36.47 09/01/2016 11:58 AM OVEN DRIER TENDER Plan of Treatment Health Maintenance Due Date Last Done Comments Cervical Cancer Screening Pa p Smear (Age 30 to 64) Every 3 Years 1993 Annual Physical 01/04/1996 Hepatitis C 2011 Hepatitis B Vaccines (1 of 3 - 19+ 3-dose series) 01/04/2012 HPV Vaccines (1 - 3-dose SCD M series) 01/04/2020 Cervical Cancer Screening Pa p with HPV Testing (Age 30 to 64) Every 5 Years 2023 Cervical Cancer Screening with HPV 2023 COVID-19 Vaccine (2023-2 5 season) 2024 DTaP, Tdap and Td Vaccines ( 2 - Td or Tdap) 05/03/2025 05/03/2015 Meningococcal B Vaccine Aged Out No l [...] complete this topic Insurance DONTAE Care Teams Pilot Highway Patrol Relationship Specialty Start Date End Date Joyce [place] [address] PCP - General NURSE PRACTITIONER 01/27/19
[2025-05-14 08:50] LABS: Total Protein Urine Random < 5 mg/dL
[2025-05-14 08:51] LABS: Total Protein Urine 24 Hr 35 mg/24hr (28-141); Total Volume 24 Hour Urine 700 ml
[2025-05-14 09:00] LABS: Estimated Glomerular Filt Rate > 60
[2025-05-14 11:00] LABS: Creatinine Clearance Urine 147.5 ml/min (75-125); Serum Creat 0.41
[2025-05-14 17:08] LABS: Total Protein Urine Random < 5 mg/dL; Ur Ttl Prot Creatinine Ratio < 0.02 mg/mg (0-0.20)
== END 2025-05-14 08:12 | disposition home or self-care (01) ==
LOC: ANHLAB 08:13
PROVIDERS: PCP Obstetrics & Gynecology; Visit Provider Obstetrics & Gynecology
DX: O24.414 Gestational diabetes mellitus in pregnancy, insulin controlled (principal); Z3A.00 Weeks of gestation of pregnancy not specified
CPT/HCPCS: 36415; 81050; 82565; 82570; 82575; 84156

== ENCOUNTER 2025-05-16 14:55 | Outpatient (RCR) | payer OTHER, SELFPAY ==
[2025-04-02 13:04] VITALS: BP 110/62; PULSE 77; RESP 18; TEMP 36.8
--- NOTE | 2025-04-02 13:36 | PC.NURSE ---
No uterine activity observed on monitor. Patient discharged per MD order
[2025-05-16 16:29] VITALS: BP 120/75; PULSE 75
== END 2025-07-01 23:59 | disposition home or self-care (01) ==
LOC: ANHOBOP 14:55
PROVIDERS: PCP Physician Assistant Medical; Visit Provider Obstetrics & Gynecology
DX: Z36.89 Encounter for other specified antenatal screening (principal)
CPT/HCPCS: 59025

== ENCOUNTER 2025-05-23 08:22 | Observation (INO) | payer OTHER, SELFPAY ==
[2025-05-23] VITALS (14 sets, daily range): BP systolic 114–122; BP diastolic 71–75; PULSE 72–102; TEMP 36.9; O2SAT 98–100; BMI 39.0
--- OUTSIDE RECORDS SUMMARY | 2025-05-23 08:33 | XMS_ITS | Clinical Summary ---
Author Organization [facility] [address] [facility] Address [address] [place] [address] Care Team Providers Care Superintendent Laundry Name Role Phone Antonio Baldwin Primary Care Provider [phone] Allergies Active Allergy Reactions Criticality Noted Date [...] daily 30 tablet 2 01/21/20 24 Active Additional Information Patient not taking.Reported on 05/01/2025 ondansetron ODT (ZOFRAN-ODT) 4 mg disintegrating tablet Take 1 tablet (4 mg total) by mouth every 8 (eight) hours as needed for nausea 20 tablet 05/03/20 24 Active hydrocortisone 2.5 % cream Apply topically 2 (two) times a day 28 g 1 07/26/20 24 Active Additional Information Patient not taking.Reported on 05/01/2025 dulaglutide (Trulicity) 0.75 mg/0.5 mL pen injectorIndication s: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) Inject 0.5 mL (0.75 mg total) under the skin every 7 days 2 mL 10/24/19 25 Active Additional Information Patient not taking.Reported on 05/01/2025 triamcinolone (KENALOG) 0.1 % ointment Apply topically 2 (two) times a day Apply thin layer to rash on back twice daily 80 g 1 12/07/19 25 Active Additional Information Patient not taking.Reported on 05/01/2025 blood-glucose meter kitIndications:DM type 2 with diabetic [...] physician, 15 mL 5 01/09/20 25 Active Dexcom G7 Sensor device APPLY SENSOR FOR 10 DAYS 04/27/20 25 Active 115/iron/folic acid ( 19 ORAL) Take 1 tablet by mouth daily Active TRUEplus Pen Needle 32 gauge x needle USE 1 PEN NEEDLE TWICE DAILY 03/08/20 25 Active magnesium oxide (MAG-OX) 400 mg (241.3 mg elemental magnesium) tablet Take 1 tablet (400 mg total) by mouth daily 04/04/20 25 Active insulin glargine 100 unit/mL (3 mL) pen for injection Inject under the skin 04/04/20 25 Active dextrose (GLUTOSE) 40 % gelIndications: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) Take 15 g by mouth daily as needed for low blood sugar 15 g 11 05/01/20 25 Active Active Problems Problem Noted Date Diagnosed Date Thrombocytosis 04/30/2025 Nausea 05/03/2024 Assessment & Plan (05/03/2024 3:54 [...] 02/01/2023 Assessment & Plan (09/24/2024 9:53 PM HEAD ROSE GROWER): Chronic uncontrolled Intolerant to metformin Start trulicity [...] Work on low carb diet Refer to acid patroller Order a1c in 3mo Dyspnea 12/23/2022 Left foot pain 12/23/2022 Overview (12/23/2022): COnt diclofenac Cont podiatry Intractable migraine with 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 Continue [...] dosing Assessment & Plan (09/16/2023 4:00 PM HEAD ROSE GROWER): Chronic condition Start quilipta Assessment & Plan (10/07/2022 10:23 AM HEAD ROSE GROWER): Chronic uncontrolled Start quilipta Wrist sprain, right, [...] MRI Assessment & Plan (12/01/2021 12:34 PM HEAD ROSE GROWER): Chronic with worsening pain Refer to p.tMary eval and treat Snoring 06/11/2021 Daytime somnolence 06/11/2021 Parasomnia 06/11/2021 BMI 40.0-44.9, adult 06/11/2021 Assessment & Plan (12/01/2021 12:42 PM HEAD ROSE GROWER): Chronic condition not well controlled patient advised [...] 03/12/2021 Assessment & Plan (12/01/2021 12:42 PM HEAD ROSE GROWER): Chronic condition order labs for evaluation Eczema of both hands 02/17/2021 Assessment & Plan (02/01/2023 12:56 PM CDT): Chronic and not well controlled Refill triamcinolone. Assessment & Plan (10/07/2022 10:30 AM HEAD ROSE GROWER): Start triamcinolone tid prn hands Assessment & [...] 07/18/2020 Assessment & Plan (10/07/2022 10:31 AM HEAD ROSE GROWER): Refer to hematology Family history of hemoglobin [...] 07/26/2017 Assessment & Plan (10/07/2022 10:31 AM HEAD ROSE GROWER): Chronic Failed p.t. 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) 05/01/2025 8:15 AM CDT Office Visit [facility] Family Medicine at [address] [place] [phone] Antonio Baldwin PA Needle stick, hypodermic, accidental, subsequent encounter (Primary Dx); Vitamin D deficiency; Iron deficiency anemia, unspecified iron deficiency anemia type; 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 Never 05/01/2025 Q2: How many drinks containi ng alcohol do you have on a typical day when you are drinking? Patient does not drink Q3: How often do you have si x or more drinks on one occasion? Never 05/01/2025 PHQ-2 Answer Date Recorded PHQ-2 Total Score (If total score is 3 or more points, staff should administer the PHQ-9) 0 05/01/2025 Hunger Vital Sign Answer Date Recorded Within [...] on file Legal Sex Female 11:27 PM HEAD ROSE GROWER Gender Identity Female 08/08/2021 9:31 AM CDT Sexual Orientation Straight 08/08/2021 9: 31 AM CDT Obstetrics History Last Filed Vital Signs Vital Sign Reading Time Taken Comments Blood Pressure 112/76 05/01/2025 8:31 AM CDT Pulse 90 05/01/2025 8:31 AM CDT Temperature 36.7 C (98 F) 05/01/2025 8:31 AM CDT Respiratory Rate 18 09/22/2024 11:36 AM HEAD ROSE GROWER Oxygen Saturation 98% 05/01/2025 8:31 AM CDT Inhaled Oxygen Concentration - - Weight 101.2 kg (223 lb) 05/01/2025 8:31 AM CDT Height 157.5 cm (5' 2) 05/01/2025 8:31 AM CDT Body Mass Index 40.79 05/01/2025 8:31 AM CDT Plan of Treatment Health Maintenance Due Date Last Done Comments Cervical Cancer Screening 1993 Dilated Eye Exam 1993 Foot Exam 1993 Regular Well Visit/Exam 18-64 2011 Pneumococcal vaccine <65 (1 of 2 - PCV) 01/04/2012 HPV Vaccines (1 - 3-dose SCD M series) 01/04/2020 Covid-19 Vaccine (3 - 2023-2 5 season) 2024 06/14/2021, 05/24/2021 Influenza Vaccine (#1) 2025 4, 07/23/2023, 07/04/2023, Additional history exists Albumin Creatinine Ratio, Urine 09/23/2025 Lipid Panel 09/23/2025 09/23/2024, 01/02, 10/07/2022, Additional history exists Hemoglobin A1C 11/01/2025 05/01/2025, 09/04, 04/27/2024, Additional history exists Depression Screening 05/01/2026 05/01/2025, 09/22/2024, 09/16/2023, Additional history exists eGFR 05/01/2026 05/01/2025, 09/04, 12/17/2023, Additional history exists DTaP/Tdap/Td Vaccine (12 - T d or Tdap) 06/24/2034 06/24/2024, 01/11/2020, 10/24/2019, Additional history exists Hepatitis B Screening Completed 04/01/1998 , 1993, 1993, Additional history exists Varicella Vaccines Completed 02/10/1999, 04/01/1998 Hepatitis C Screening Completed 05/01/2025 , 09/23/2024, 05/23/2024, Additional history exists Procedures Procedure Name Priority Date/Time Associated Diagnosis Comments EGFR Routine 05/01/2025 9:27 AM CDT 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) DIFFERENTIAL AUTO Routine 05/01/2025 9:2 7 AM CDT Iron deficiency anemia, unspecified iron deficiency anemia type HEMOGLOBIN A1C Routine 05/01/2025 9:27 AM CDT 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) CBC WITH AUTO DIFFERENTIAL Routine 05/01/2025 9:27 AM CDT Iron deficiency anemia, unspecified iron deficiency anemia type COMPREHENSIVE METABOLIC PANEL Routine 05/01/2025 9:27 AM CDT 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) FERRITIN Routine 05/01/2025 9:27 AM CDT Iron deficiency anemia, unspecified iron deficiency anemia type VITAMIN D 25 HYDROXY Routine 05/01/2025 9:27 AM CDT Vitamin D deficiency IRON PROFILE W/ IBC Routine 05/01/2025 9 :27 AM CDT Iron deficiency anemia, unspecified iron deficiency anemia type HEPATITIS C ANTIBODY Routine 05/01/2025 9:27 AM CDT Needle stick, hypodermic, accidental, subsequent encounter HIV 1/2 ANTIBODY PLUS P24 ANTIGEN Routine 05/01/2025 9:27 AM CDT Needle stick, hypodermic, accidental, subsequent encounter LIPID PANEL Routine 09/23/2024 7:24 AM HEAD ROSE GROWER 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 73 m2 Comment: [...] interpretive data was last reviewed 2021. Blood 05/01/2025 9:27 AM CDT 05/01/2025 12:12 PM CDT us Antonio [facility] LAB BLOOD ORDERABLES Final Resu lt [facility] [address] [facility] Department [place] [address] * (ABNORMAL) Differential, auto (05/01/2025 9:27 AM CDT) Pathologist [facility] Neutrophil abs 7.94(H) 1.50 - 6.50 K/cumm Imm gran abs 0.05 0.00 - 0.10 K/cumm [facility] Lymphocyte abs 1.55 0.80 - 3.30 K/cumm [facility] Monocyte abs 0.54 0.20 - 0.80 K/cumm [facility] Eosinophil abs 0.05 0.00 - 0.50 K/cumm [facility] Basophil abs 0.03 0.00 - 0.10 K/cumm [facility] Neutrophil pct 78.1 % [facility] Comment: Interpretive Data Percent cell count reference ranges are not reported, since discordance with absolute values may lead to misinterpretation of CBC data. Current Interpretive Data was last revised on 2018. Imm gran pct 0.5 % [facility] Comment: Interpretive Data Percent cell count reference ranges are not reported, since discordance with absolute values may lead to misinterpretation of CBC data. Current Interpretive Data was last revised on 2018. Lymphocyte pct 15.3 % [facility] Comment: Interpretive Data Percent cell count reference ranges are not reported, since discordance with absolute values may lead to misinterpretation of CBC data. Current Interpretive Data was last revised on 2018. Monocyte pct 5.3 % [facility] Comment: Interpretive Data Percent cell count reference ranges are not reported, since discordance with absolute values may lead to misinterpretation of CBC data. Current Interpretive Data was last revised on 2018. Eosinophil pct 0.5 % [facility] Comment: Interpretive Data Percent cell count reference ranges are not reported, since discordance with absolute values may lead to misinterpretation of CBC data. Current Interpretive Data was last revised on 2018. Basophil pct 0.3 % [facility] Comment: Interpretive Data Percent cell count reference ranges are not reported, since discordance with absolute values may lead to misinterpretation of CBC data. Current Interpretive Data was last revised on 2018. Blood 05/01/2025 9:27 AM CDT 05/01/2025 12:12 PM CDT us Antonio [facility] LAB BLOOD ORDERABLES Final Resu lt [facility] [address] [facility] Department [place] [address] * (ABNORMAL) Iron profile w/ IBC (05/01/2025 9:27 AM CDT) Iron 47 35 - 145 mcg/dL TIBC 446(H) 250 - 400 mcg/dL [facility] Transferrin saturation 11(L) 20 - 50 % [facility] Blood 05/01/2025 9:27 AM CDT 05/01/2025 12:12 PM CDT Antonio [facility] LAB BLOOD ORDERABLES Final Resu lt Performing Organization Address City/[facility] Co de Phone Number [facility] [address] [address] * HIV 1/2 Antibody plus p24 Antigen Blood (05/01/2025 9:27 AM CDT) [facility] HIV 1/2 ab + p24 ag Nonreactive Nonreactive Comment:Nonreactive for HIV- 1 antigen and HIV-1/HIV-2 antibodies. No laboratory evidence of HIV infection. If acute HIV infection is suspected, consider testing for HIV-1 RNA. Current interpretive data was last revised on 22. Blood 05/01/2025 9:27 AM CDT 05/01/2025 12:12 PM CDT Antonio [facility] LAB MICROBIOLOGY - GENERAL ORDE RABLES Final Result Performing Organization Address [facility] de Phone Number [facility] [address] [address] * (ABNORMAL) CBC with auto differential (05/01/2025 9:27 AM CDT) [facility] WBC 10.16(H) 3.80 - 9.90 K/cumm Hgb 10.6(L) 11.9 - 15.5 g/dL [facility] Hct 33.6(L) 35.6 - 45.5 % [facility] Plt 385 150 - 400 K/cumm [facility] MPV 9.5 9.1 - 12.3 fL [facility] RBC 4.42 3.90 - 5.20 M/cumm [facility] MCV 76.0(L) 81.3 - 96.4 fL [facility] MCH 24.0(L) 27.1 - 33.3 pg [facility] MCHC 31.5(L) 32.3 - 35.7 g/dL [facility] RDW CV 18.3(H) 11.1 - 14.9 % [facility] RDW SD 50.3(H) 35.7 - 48.1 fL [facility] NRBC abs 0.00 0.00 - 0.01 K/cumm [facility] Blood 05/01/2025 9:27 AM CDT 05/01/2025 12:12 PM CDT Antonio [facility] LAB BLOOD ORDERABLES Final Resu lt Performing Organization Address City/[facility] Co de Phone Number [facility] [facility] [place] [address] * Hepatitis C antibody Blood (05/01/2025 9:27 AM CDT) [facility] Hep C Ab Nonreactive Nonreactive Comment: Antibodies [...] data was last revised on 2019. Blood 05/01/2025 9:27 AM CDT 05/01/2025 12:12 PM CDT Antonio [facility] MICROBIOLOGY - GENERAL ORDE RABLES Final Result Performing Organization Address [facility] Co de Phone Number [address] [place] [address] * Vitamin D 25 hydroxy (05/01/2025 9:27 AM CDT) [facility] Vitamin D 25-OH 34.0 30.0 - 80.0 ng/mL Blood 05/01/2025 9:27 AM CDT 05/01/2025 12:12 PM CDT Antonio [facility] LAB BLOOD ORDERABLES Final Resu lt Performing Organization Address City/[facility]/ZIP Co de Phone Number [facility] [address] [place] [address] * (ABNORMAL) Hemoglobin A1c (05/01/2025 9:27 AM CDT) Pathologist [facility] Hgb A1C 6.2(H) 4.0 - 5.6 % Estimated Average Glucose 131 mg/dL [facility] Comment: The ADA recommends reporting an estimated Average Glucose (eAG) with all Hemoglobin A1c results using the equation derived from a study of 507 normal and diabetic adults. Minority populations were underrepresented and children were not included. (Diabetes Care 31:8804-4454, 2008). The eAG is not equivalent to a fasting glucose. Blood 05/01/2025 9:27 AM CDT 05/01/2025 12:12 PM CDT Antonio [facility] LAB BLOOD ORDERABLES Final Resu lt Performing Organization Address [facility]/ZIP Co de Phone Number [facility] [address] [place] [address] * Ferritin (05/01/2025 9:27 AM CDT) [facility] Ferritin 16 13 - 150 ng/mL Blood 05/01/2025 9:27 AM CDT 05/01/2025 12:12 PM CDT Antonio [facility] LAB BLOOD ORDERABLES Final Resu lt Performing Organization Address City/[facility]/ZIP Co de Phone Number [facility] [address] [place] [address] * (ABNORMAL) Comprehensive metabolic panel (05/01/2025 9:27 AM CDT) Pathologist [facility] Sodium 136 135 - 145 mmol/L Potassium, pl 3.9 3.3 - 4.9 mmol/L [facility] Chloride 104 97 - 110 mmol/L [facility] CO2 21(L) 22 - 32 mmol/L [facility] Anion gap 11 2 - 15 mmol/L [facility] BUN 6 6 - 25 mg/dL [facility] Creatinine 0.43(L) 0.60 - 1.10 mg/dL [facility] Glucose 94 70 - 199 mg/dL [facility] Comment: Interpretive Data Fasting glucose >/= [...] interpretive data was last revised 2022. Calcium 9.2 8.5 - 10.3 mg/dL [facility] Bilirubin, total <0.2 0.1 - 1.2 mg/dL [facility] Protein, pl 7.0 6.5 - 8.5 g/dL [facility] Albumin 3.8 3.5 - 5.0 g/dL [facility] Alk phos 79 40 - 130 Units/L [facility] ALT 6(L) 7 - 45 Units/L [facility] AST 16 10 - 45 Units/L [facility] Blood 05/01/2025 9:27 AM CDT 05/01/2025 12:12 PM CDT us Antonio [facility] BLOOD ORDERABLES [facility] [address] [facility] Department [place] [address] * (ABNORMAL) Lipid panel (09/23/2024 7:24 AM HEAD ROSE GROWER) Cholesterol 142 30 - 199 mg/dL Comment: [...] ratio 4 [facility] Blood 09/23/2024 7:24 AM HEAD ROSE GROWER 09/23/2024 9:41 AM HEAD ROSE GROWER us Antonio [facility] LAB BLOOD ORDERABLES Final Resu lt [facility] [address] [facility] Department [place] [address] * Albumin Creatinine Ratio, Urine (09/23/2024 7:20 AM HEAD ROSE GROWER) Albumin Ur <12.0 mg/L Comment: Interpretive Data No reference range established. Current interpretive data was last revised 2019. Creatinine Ur 197.0 mg/dL [facility] Comment: Interpretive Data No reference range established. Current interpretive data was last revised 2019. Albumin Creatinine Ratio, Ur <6 1 - 29 mg/g [facility] Urine 09/23/2024 7:20 AM HEAD ROSE GROWER 09/23/2024 9:37 AM HEAD ROSE GROWER us Antonio [facility] URINE ORDERABLES Final Resu lt [facility] [address] [facility] Department [place] [address] from Last 3 Months or Most Recently Relevant to Health Maintenance Insurance [facility] * Guarantor: [facility] [employer] Account Type Relation to Patient Date of Phone Billing Address Third Libertarian Liability Other Care Teams Superintendent Laundry Relationship Specialty Start Date End Date Antonio Baldwin PA [address] [facility] [address] [address] PCP - General Family Medicine 07/01/22
--- OUTSIDE RECORDS SUMMARY | 2025-05-23 08:33 | XMS_ITS | Encounter Summary ---
Author Organization [facility] Facility Care Team Providers Care Trauma Coordinator Name Role Phone Phillip Coker MD Primary Care Provider [phone] Antonio Baldwin Primary Care Provider [phone] Encounter Details Date Type Department Care Team (Latest Contact Info) Description 10/28/2018 Orders Only [facility] CLINCONV ProviderPérez MD [address] [place] [address] Social History Tobacco Use Types Packs/Day Years Used Date Smoking Tobacco: Never Assessed Comments Unknown Sex and Gender Information Value Date Recorded Sex Assigned at Not on file Legal Sex Female 11:27 PM LINE INSTALLER Gender Identity Female 08/08/2021 9:31 AM CDT Sexual Orientation Straight 08/08/2021 9: 31 AM CDT documented as of this encounter Plan of Treatment Not on file documented as of this encounter Procedures Procedure Name Priority Date/Time Associated Diagnosis Comments CARDIOLOGY REPORT 10/28/2018 12: 00 AM LINE INSTALLER documented in this encounter Results * CARDIOLOGY REPORT (10/28/2018 12:00 AM LINE INSTALLER) Anatomical Region Laterality Modality Other Narrative 10/28/2018 12:00 AM LINE INSTALLER Ordered by an unspecified provider. Historical Provider [facility] MARTHA HARDING Final Result documented in this encounter Visit Diagnoses Not on filedocumented in this encounter Additional Health Concerns Infection Onset Date Last Indicated Resolved Time COVID: Suspected 09/01/2021 09/01/2021 09/02/2021 1:03 AM LINE INSTALLER COVID: Suspected 10/01/2021 10/01/2021 10/02/2021 4:52 AM LINE INSTALLER COVID19 10/01/2021 10/01/2021 10/15/2021 3:07 AM LINE INSTALLER COVID: Recovered Comment:Added based on recent COVID infection. 10/15/2021 10/20/2021 02/12/2022 3:05 AM C DT COVID: Suspected 12/11/2021 12/11/2021 12/12/2021 12:07 AM LINE INSTALLER COVID: Suspected 06/21/2023 06/21/2023 06/21/2023 3:30 PM CDT COVID: Suspected 06/21/2023 06/21/2023 06/21/2023 6:32 PM CDT documented as of this encounter Care Teams Trauma Coordinator Relationship Specialty Start Date End Date Phillip Coker MD PCP - General 12/30/18 06/30/22 Antonio Baldwin PA [address] [facility] [address] [address] PCP - General Family Medicine 07/01/22 documented as of this encounter
--- OUTSIDE RECORDS SUMMARY | 2025-05-23 08:33 | XMS_ITS | Encounter Summary ---
Author Organization [facility] Healthcare Address [address] [place] [address] Care Team Providers Care Lion Hunter Name Role Phone Antonio Baldwin Primary Care Provider [phone] Encounter Details Date Type Department Care Team (Late st Contact Info) Description 05/01/2025 Results Follow-Up [facility] Family Medicine at [address] [place] [phone] Antonio Baldwin PA [address] [place] [address] [address] [place] [address] HIV 1/2 Antibody plus p24 Antigen Blood, Hepatitis C antibody Blood, Iron profile w/ IBC, Additional followed-up results: 7 Social History Tobacco Use Types Packs/Day Years [...] on file Legal Sex Female 11:27 PM DIVISION HUMAN RESOURCES MANAGER Gender Identity Female 08/08/2021 9:31 AM CDT Sexual Orientation Straight 08/08/2021 9: 31 AM CDT documented as of this encounter Functional Status * AUDIT-C Score Answer Date of Assessment Author 0 05/01/2025 8:44 AM CDT Dilip Joyce MA * Question Answer Date of Assessment Author Q1: How often do you have a drink containing alcohol? Never 05/01/2025 8:44 AM CDT Tino Joyce MA Q2: How many drinks containing alcohol do you have on a typical day when you are drinking? Patient does not drink 05/01/2025 8:44 AM CDT Tino Joyce MA Q3: How often do you have six or more drinks on one occasion? Never 05/01/2025 8:44 AM CDT Tino Joyce MA documented as of this encounter Miscellaneous Notes * Telephone Encounter - Antonio Baldwin PA - 05/01/2025 5:02 PM CDT 30mg * Telephone Encounter - Alee Mario RN - 05/01/2025 3:48 PM CDT I don't see any iron in her . How much do you want her taking daily? documented in this encounter Plan of Treatment Not on file documented as of this encounter Visit Diagnoses Not on filedocumented in this encounter Care Teams Lion Hunter Relationship Specialty Start Date End Date Antonio Baldwin PA [address] [facility] [address] [place] [address] PCP - General Family Medicine 07/01/22 documented as of this encounter
--- OUTSIDE RECORDS SUMMARY | 2025-05-23 08:34 | XMS_ITS | Encounter Summary ---
Author Organization [facility] Facility Care Team Providers Care Virginia Line Attendant Name Role Phone Phillip Coker MD Primary Care Provider [phone] Antonio Baldwin Primary Care Provider [phone] Encounter Details Date Type Department Care Team (Latest Contact Info) Description 07/20/2017 Orders Only [facility] CLINCONV ProviderPérez MD [address] [place] [address] Social History Tobacco Use Types Packs/Day Years Used Date Smoking Tobacco: Never Assessed Comments Unknown Sex and Gender Information Value Date Recorded Sex Assigned at Not on file Legal Sex Female 11:27 PM POULTRY DRESSER Gender Identity Female 08/08/2021 9:31 AM CDT [...] COVID: Suspected 09/01/2021 09/01/2021 09/02/2021 1:03 AM POULTRY DRESSER COVID: Suspected 10/01/2021 10/01/2021 10/02/2021 4:52 AM POULTRY DRESSER COVID19 10/01/2021 10/01/2021 10/15/2021 3:07 AM POULTRY DRESSER COVID: Recovered Comment:Added based on recent COVID infection. 10/15/2021 10/20/2021 02/12/2022 3:05 AM C DT COVID: Suspected 12/11/2021 12/11/2021 12/12/2021 12:07 AM POULTRY DRESSER COVID: Suspected 06/21/2023 06/21/2023 06/21/2023 3:30 PM CDT COVID: Suspected 06/21/2023 06/21/2023 06/21/2023 6:32 PM CDT documented as of this encounter Care Teams [place] Line Attendant Relationship Specialty Start Date End Date Phillip Coker MD PCP - General 12/30/18 06/30/22 Antonio Baldwin PA [address] [facility] [address] [address] PCP - General Family Medicine 07/01/22 documented as of this encounter
--- OUTSIDE RECORDS SUMMARY | 2025-05-23 08:34 | XMS_ITS | Clinical Summary ---
Author Organization [facility] Address [facility] [place] [address] Care Team Providers Care Financial Operations Analyst Name Role Phone MiloJoyce sarabia LANNY Primary Care Provider [phone] Allergies Active Allergy Reactions Criticality Noted Date [...] 87.5 kg (193 lb) 09/01/2016 11:58 AM POWER GENERATION TURBINE ROOM OPERATOR Height 154.9 cm (5' 1) 09/01/2016 11:58 AM POWER GENERATION TURBINE ROOM OPERATOR Body Mass Index 36.47 09/01/2016 11:58 AM POWER GENERATION TURBINE ROOM OPERATOR Plan of Treatment Health Maintenance Due [...] complete this topic Insurance DONTAE Care Teams Financial Operations Analyst Relationship Specialty Start Date End Date Joyce [place] [address] PCP - General NURSE PRACTITIONER 01/27/19
--- OUTSIDE RECORDS SUMMARY | 2025-05-23 08:34 | XMS_ITS | Encounter Summary ---
Author Organization [facility] Healthcare Address [address] [place] [address] Care Team Providers Care Telecommunications Officer Name Role Phone Phillip Coker MD Primary Care Provider [phone] Antonio Baldwin Primary Care Provider [phone] Reason for Visit * Reason Onset Date Comments No Show 01/15/2022 I called patient and she states that she will be in attendance tomorrow for her next scheduled visit. Encounter Details Date Type Department Care Team (Late st Contact Info) Description 01/15/2022 Documentation [facility] OP Physical Therapy [facility] [address] [address] Arlene Albert, PT No Show [...] on file Legal Sex Female 11:27 PM WALL TAPER HELPER Gender Identity Female 08/08/2021 9:31 AM [...] documented as of this encounter Care Teams Telecommunications Officer Relationship Specialty Start Date End Date Phillip Coker MD PCP - General 12/30/18 06/30/22 Antonio Baldwin PA [address] [facility] [address] [place] [address] [place] [address] PCP - General Family Medicine 07/01/22 documented as of this encounter
[2025-05-23 09:28] LABS: Add Urine Microscopic? YES; Appearance Urine Cloudy (Clear); Glucose Urine UA Negative (Negative); Leukocyte Esterase Ur 2+ LEU/UL (Negative); Nitrate Urine Negative (Negative); Specific Grav Ur 1.026 (1.001-1.035)
--- NOTE | 2025-05-23 09:32 | OBADM ---
This patient, Yenni Francois, admitted to the OB room 116 for observation. Patient/family oriented to hospital policies and general routines including ID bracelet, bed and alarms, visiting hours, pain management, procedures, bathroom and other care routines, personal items, smoking policy, room service/diet, and visiting hours. Patient/Family are encouraged to report perceived risks to care and to ask questions if they do not understand what they are told or what they should do.
[2025-05-23] MEDS: NITROFURANTOIN MONOHYD MACROCR 100 MG CAP PO (10:22)
--- NOTE | 2025-06-12 21:23 | P.PNOB_ITS ---
OB - Triage/Final Diagnosis Visit Information Comments/Additional reasons for admission: I have assessed the risk for this patient, Yenni Francois, and determined that she would benefit from observation care. Evaluation Laboratory results: Laboratory Tests 05/23/25 05/23/25 09:15 09:17 POC Capillary Glucose 87 Urine Color Yellow Urine Appearance Cloudy H Urine pH 5.5 Ur Specific [place] 1.026 Urine Protein Trace Urine Glucose (UA) Negative Urine Ketones 1+ H Ur Blood (Man) Negative Urine Nitrate Negative Urine Bilirubin Negative Urine Urobilinogen 1.0 Leukocyte Esterase Rfl 2+ H Urine RBC 3-5 H Urine WBC 21-50 H Ur Squamous Epith Cells Few Urine Bacteria None seen Urine Casts 3-5 Final Diagnosis (1) Urinary symptom or sign: Code(s): R39.9 - Unspecified symptoms and signs involving the genitourinary system Status: Acute (2) Pelvic pressure in : Code(s): O26.899 - Other specified related conditions, unspecified trimester; R10.2 - Pelvic and perineal pain Status: Acute
== END 2025-05-23 10:30 | disposition home or self-care (01) ==
PROVIDERS: Admitting Provider Obstetrics & Gynecology; Visit Provider Obstetrics & Gynecology
DX: O26.899 Other specified pregnancy related conditions, unspecified trimester (principal); R39.9 Unspecified symptoms and signs involving the genitourinary system; R10.9 Unspecified abdominal pain
CPT/HCPCS: 81001; 82948; 87086; A9270; G0378; G0379

== ENCOUNTER 2025-05-25 12:04 | Emergency (ER) | payer OTHER, SELFPAY ==
--- NOTE | ~2025-05-25 | XR_ITS ---
EXAMINATION: XR chest 1V portable 05/25/2025 12:51 INDICATION: Chest pain PROCEDURE: AP portable chest COMPARISON: Comparison to multiple prior studies sequentially, with oldest reviewed study dated 09/04/2020. FINDINGS: The lungs are clear. The cardiomediastinal silhouette is within normal limits. There are no pleural effusions. There is no pneumothorax suspected. IMPRESSION: 1: NO ACUTE CARDIOPULMONARY DISEASE. Reviewed, dictated and finalized at location O.
--- NOTE | 2025-05-25 12:07 | ECG_ITS ---
Test Date: 2025-05-25 12:17:54 Measurements Intervals Kimberly Rate: 84 P: 50 ID: 166 QRS: 3 QRSD: 81 T: 9 QT: 352 QTc: 417 Interpretive Statements SINUS RHYTHM LEFT ATRIAL ENLARGEMENT POSSIBLE LEFT VENTRICULAR HYPERTROPHY MINIMAL Q WAVES- HIGH LATERAL LEADS BASELINE ARTIFACT- I, III, AVR, AVL, AVF BORDERLINE ECG No previous ECG available for comparison Electronically Signed On 05-25-2025 12:52:13 CDT by Fabio Love D.O.
--- OUTSIDE RECORDS SUMMARY | 2025-05-25 12:08 | XMS_ITS | Clinical Summary ---
Author Organization [facility] Address [facility] [place] [address] Care Team Providers Care Hedge Fund Principal Name Role Phone MiloJoyce sarabia LANNY Primary Care Provider [phone] Allergies Active Allergy Reactions Criticality Noted Date [...] 87.5 kg (193 lb) 09/01/2016 11:58 AM PILLING MACHINE OPERATOR Height 154.9 cm (5' 1) 09/01/2016 11:58 AM PILLING MACHINE OPERATOR Body Mass Index 36.47 09/01/2016 11:58 AM PILLING MACHINE OPERATOR Plan of Treatment Health Maintenance Due [...] complete this topic Insurance DONTAE Care Teams Hedge Fund Principal Relationship Specialty Start Date End Date Joyce [place] [address] PCP - General NURSE PRACTITIONER 01/27/19
--- OUTSIDE RECORDS SUMMARY | 2025-05-25 12:08 | XMS_ITS | Encounter Summary ---
Author Organization [facility] Facility Care Team Providers Care Ambulance Operations Supervisor Name Role Phone Phillip Coker MD Primary Care Provider Antonio Baldwin Primary Care Provider [phone] Encounter Details Date Type Department Care Team (Latest Contact Info) Description 10/28/2018 Orders Only [facility] CLINCONV ProviderPérez MD [address] [place] [address] Social History Tobacco Use Types Packs/Day Years Used Date Smoking Tobacco: Never Assessed Comments Unknown Sex and Gender Information Value Date Recorded Sex Assigned at Not on file Legal Sex Female 11:27 PM CORROSION ENGINEER Gender Identity Female 08/08/2021 9:31 AM CDT Sexual Orientation Straight 08/08/2021 9: 31 AM CDT documented as of this encounter Plan of Treatment Not on file documented as of this encounter Procedures Procedure Name Priority Date/Time Associated Diagnosis Comments CARDIOLOGY REPORT 10/28/2018 12: 00 AM CORROSION ENGINEER documented in this encounter Results * CARDIOLOGY REPORT (10/28/2018 12:00 AM CORROSION ENGINEER) Anatomical Region Laterality Modality Other Narrative 10/28/2018 12:00 AM CORROSION ENGINEER Ordered by an unspecified provider. Historical Provider [facility] MARTHA HARDING Final Result documented in this encounter Visit Diagnoses Not on filedocumented in this encounter Additional Health Concerns Infection Onset Date Last Indicated Resolved Time COVID: Suspected 09/01/2021 09/01/2021 09/02/2021 1:03 AM CORROSION ENGINEER COVID: Suspected 10/01/2021 10/01/2021 10/02/2021 4:52 AM CORROSION ENGINEER COVID19 10/01/2021 10/01/2021 10/15/2021 3:07 AM CORROSION ENGINEER COVID: Recovered Comment:Added based on recent COVID infection. 10/15/2021 10/20/2021 02/12/2022 3:05 AM C DT COVID: Suspected 12/11/2021 12/11/2021 12/12/2021 12:07 AM CORROSION ENGINEER COVID: Suspected 06/21/2023 06/21/2023 06/21/2023 3:30 PM CDT COVID: Suspected 06/21/2023 06/21/2023 06/21/2023 6:32 PM CDT documented as of this encounter Care Teams Ambulance Operations Supervisor Relationship Specialty Start Date End Date Phillip Coker MD PCP - General 12/30/18 06/30/22 Antonio Baldwin PA [address] [facility] [address] [address] PCP - General Family Medicine 07/01/22 documented as of this encounter
--- OUTSIDE RECORDS SUMMARY | 2025-05-25 12:08 | XMS_ITS | Clinical Summary ---
Author Organization [facility] [address] [facility] Address [address] [place] [address] Care Team Providers Care Centerless Grinding Machine Adjuster Name Role Phone Antonio Baldwin Primary Care Provider [phone] Allergies Active Allergy Reactions Criticality Noted Date [...] 02/01/2023 Assessment & Plan (09/24/2024 9:53 PM STEP DOWN NURSE): Chronic uncontrolled Intolerant to metformin Start trulicity [...] Work on low carb diet Refer to residential program director Order a1c in 3mo Dyspnea 12/23/2022 Left foot pain 12/23/2022 Overview (12/23/2022): COnt diclofenac Cont podiatry Intractable migraine with aura without status mi grainosus 10/07/2022 Assessment & Plan (09/24/2024 9:52 PM STEP DOWN NURSE): Chronic stable and improving with quilipta. Continue [...] dosing Assessment & Plan (09/16/2023 4:00 PM STEP DOWN NURSE): Chronic condition Start quilipta Assessment & Plan (10/07/2022 10:23 AM STEP DOWN NURSE): Chronic uncontrolled Start quilipta Wrist sprain, right, [...] MRI Assessment & Plan (12/01/2021 12:34 PM STEP DOWN NURSE): Chronic with worsening pain Refer to p.tMary eval and treat Snoring 06/11/2021 Daytime somnolence 06/11/2021 Parasomnia 06/11/2021 BMI 40.0-44.9, adult 06/11/2021 Assessment & Plan (12/01/2021 12:42 PM STEP DOWN NURSE): Chronic condition not well controlled patient advised [...] 03/12/2021 Assessment & Plan (12/01/2021 12:42 PM STEP DOWN NURSE): Chronic condition order labs for evaluation Eczema of both hands 02/17/2021 Assessment & Plan (02/01/2023 12:56 PM CDT): Chronic and not well controlled Refill triamcinolone. Assessment & Plan (10/07/2022 10:30 AM STEP DOWN NURSE): Start triamcinolone tid prn hands Assessment & [...] 07/18/2020 Assessment & Plan (10/07/2022 10:31 AM STEP DOWN NURSE): Refer to hematology Family history of hemoglobin [...] 07/26/2017 Assessment & Plan (10/07/2022 10:31 AM STEP DOWN NURSE): Chronic Failed p.t. and xrays and nsaids [...] Team Description 05/01/2025 9:25 AM CDT Lab 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 Medical Group Family Medicine at [address] [place] [address] Antonio Baldwin PA HIV 1/2 [...] on file Legal Sex Female 11:27 PM STEP DOWN NURSE Gender Identity Female 08/08/2021 9:31 AM CDT Sexual Orientation Straight 08/08/2021 9: 31 AM CDT Obstetrics History Last Filed Vital Signs Vital Sign Reading Time Taken Comments Blood Pressure 112/76 05/01/2025 8:31 AM CDT Pulse 90 05/01/2025 8:31 AM CDT Temperature 36.7 C (98 F) 05/01/2025 8:31 AM CDT Respiratory Rate 18 09/22/2024 11:36 AM STEP DOWN NURSE Oxygen Saturation 98% 05/01/2025 8:31 AM CDT [...] encounter LIPID PANEL Routine 09/23/2024 7:24 AM STEP DOWN NURSE 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 73 m2 Comment: [...] [facility] LAB BLOOD ORDERABLES Final Resu lt [facility] [address] [facility] Department [place] [address] * (ABNORMAL) Differential, auto (05/01/2025 9:27 AM CDT) Pathologist [facility] Neutrophil abs 7.94(H) 1.50 - 6.50 K/cumm Imm gran abs 0.05 0.00 - 0.10 K/cumm [facility] Lymphocyte abs 1.55 0.80 - 3.30 K/cumm [facility] Monocyte abs 0.54 0.20 - 0.80 K/cumm [facility] Eosinophil abs 0.05 0.00 - 0.50 K/cumm [facility] Basophil abs 0.03 0.00 - 0.10 K/cumm [facility] Neutrophil pct 78.1 % [facility] Comment: Interpretive Data Percent cell count [...] BLOOD ORDERABLES Final Resu lt [facility] [address] [facility] Department [place] [address] * (ABNORMAL) Iron profile w/ IBC (05/01/2025 9:27 AM CDT) Iron 47 35 - 145 mcg/dL TIBC 446(H) 250 - 400 mcg/dL [facility] Transferrin saturation 11(L) 20 - 50 % [facility] Blood 05/01/2025 9:27 AM CDT 05/01/2025 12:12 PM CDT Antonio [facility] BLOOD ORDERABLES Final Resu lt Performing Organization Address City/[facility] Co de Phone Number [facility] [address] [address] * HIV 1/2 Antibody plus p24 Antigen Blood (05/01/2025 9:27 AM CDT) [facility] HIV 1/2 ab + p24 ag Nonreactive Nonreactive Comment:Nonreactive for HIV- 1 antigen and HIV-1/HIV-2 antibodies. No laboratory evidence of HIV infection. If acute HIV infection is suspected, consider testing for HIV-1 RNA. Current interpretive data was last revised on 22. Blood 05/01/2025 9:27 AM CDT 05/01/2025 12:12 PM CDT Antonio [facility] MICROBIOLOGY - GENERAL ORDE RABLES Final Result Performing Organization Address [facility] de Phone Number [facility] [address] [address] * (ABNORMAL) CBC with auto differential (05/01/2025 9:27 AM CDT) [facility] WBC 10.16(H) 3.80 - 9.90 K/cumm Hgb 10.6(L) 11.9 - 15.5 g/dL [facility] Hct 33.6(L) 35.6 - 45.5 % [facility] Plt 385 150 - 400 K/cumm [facility] MPV 9.5 9.1 - 12.3 fL [facility] RBC 4.42 3.90 - 5.20 M/cumm [facility] MCV 76.0(L) 81.3 - 96.4 fL [facility] MCH 24.0(L) 27.1 - 33.3 pg [facility] MCHC 31.5(L) 32.3 - 35.7 g/dL [facility] RDW CV 18.3(H) 11.1 - 14.9 % [facility] RDW SD 50.3(H) 35.7 - 48.1 fL [facility] NRBC abs 0.00 0.00 - 0.01 K/cumm [facility] Blood 05/01/2025 9:27 AM CDT 05/01/2025 12:12 PM CDT Antonio [facility] BLOOD ORDERABLES Final Resu lt Performing Organization Address City/[facility] Co de Phone Number ABIGAIL[address] [place] [address] * Hepatitis C antibody Blood (05/01/2025 9:27 AM CDT) [facility] Hep C Ab Nonreactive Nonreactive Comment: Antibodies [...] ORDE RABLES Final Result Performing Organization Address [facility] Co de Phone Number [address] [place] [address] * Vitamin D 25 hydroxy (05/01/2025 9:27 AM CDT) [facility] Vitamin D 25-OH 34.0 30.0 - 80.0 ng/mL Blood 05/01/2025 9:27 AM CDT 05/01/2025 12:12 PM CDT Antonio [facility] BLOOD ORDERABLES Final Resu lt Performing Organization Address City/[facility]/ZIP Co de Phone Number [facility] [address] [place] [address] * (ABNORMAL) Hemoglobin A1c (05/01/2025 9:27 AM CDT) Pathologist [facility] Hgb A1C 6.2(H) 4.0 - 5.6 % Estimated Average Glucose 131 mg/dL [facility] Comment: The ADA recommends reporting an estimated Average Glucose (eAG) with all Hemoglobin A1c results using the equation derived from a study of 507 normal and diabetic adults. Minority populations were underrepresented and children were not included. (Diabetes Care 31:9108-6203, 2008). The eAG is not equivalent to a fasting glucose. Blood 05/01/2025 9:27 AM CDT 05/01/2025 12:12 PM CDT Antonio [facility] BLOOD ORDERABLES Final Resu lt Performing Organization Address [facility]/ZIP Co de Phone Number [facility] [address] [place] [address] * Ferritin (05/01/2025 9:27 AM CDT) [facility] Ferritin 16 13 - 150 ng/mL Blood 05/01/2025 9:27 AM CDT 05/01/2025 12:12 PM CDT Antonio [facility] BLOOD ORDERABLES Final Resu lt Performing Organization Address City/[facility]/ZIP Co de Phone Number [facility] [address] [place] [address] * (ABNORMAL) Comprehensive metabolic panel (05/01/2025 9:27 AM CDT) Pathologist [facility] Sodium 136 135 - 145 mmol/L Potassium, pl 3.9 3.3 - 4.9 mmol/L [facility] Chloride 104 97 - 110 mmol/L [facility] CO2 21(L) 22 - 32 mmol/L [facility] Anion gap 11 2 - 15 mmol/L [facility] BUN 6 6 - 25 mg/dL [facility] Creatinine 0.43(L) 0.60 - 1.10 mg/dL [facility] Glucose 94 70 - 199 mg/dL [facility] Comment: Interpretive Data Fasting glucose >/= [...] 2022. Calcium 9.2 8.5 - 10.3 mg/dL [facility] Bilirubin, total <0.2 0.1 - 1.2 mg/dL [facility] Protein, pl 7.0 6.5 - 8.5 g/dL [facility] Albumin 3.8 3.5 - 5.0 g/dL [facility] Alk phos 79 40 - 130 Units/L [facility] ALT 6(L) 7 - 45 Units/L [facility] AST 16 10 - 45 Units/L [facility] Blood 05/01/2025 9:27 AM CDT 05/01/2025 12:12 PM CDT us Antonio [facility] BLOOD ORDERABLES Final [facility] [address] [facility] Department [place] [address] * (ABNORMAL) Lipid panel (09/23/2024 7:24 AM STEP DOWN NURSE) Cholesterol 142 30 - 199 mg/dL Comment: [...] ratio 4 [facility] Blood 09/23/2024 7:24 AM STEP DOWN NURSE 09/23/2024 9:41 AM STEP DOWN NURSE us Antonio [facility] BLOOD ORDERABLES Final Resu lt [facility] [address] [facility] Department [place] [address] * Albumin Creatinine Ratio, Urine (09/23/2024 7:20 AM STEP DOWN NURSE) Albumin Ur <12.0 mg/L Comment: Interpretive Data No reference range established. Current interpretive data was last revised 2019. Creatinine Ur 197.0 mg/dL [facility] Comment: Interpretive Data No reference range established. Current interpretive data was last revised 2019. Albumin Creatinine Ratio, Ur <6 1 - 29 mg/g [facility] Urine 09/23/2024 7:20 AM STEP DOWN NURSE 09/23/2024 9:37 AM STEP DOWN NURSE us Antonio [facility] URINE ORDERABLES Final Resu lt [facility] [address] [facility] [facility] Department [place] [address] from Last 3 Months or Most Recently Relevant to Health Maintenance Insurance [facility] * Guarantor: [facility] [employer] Account Type Relation to Patient Date of Phone Billing Address Third Alliance Party Liability Other Care Teams Centerless Grinding Machine Adjuster Relationship Specialty Start Date End Date Antonio Baldwin PA [address] [facility] [address] [address] PCP - General Family Medicine 07/01/22
--- OUTSIDE RECORDS SUMMARY | 2025-05-25 12:08 | XMS_ITS | Encounter Summary ---
Author Organization [facility] Facility Care Team Providers Care Medical Practice Assistant Name Role Phone Phillip Coker MD Primary Care Provider [phone] Antonio Baldwin Primary Care Provider [phone] Encounter Details Date Type Department Care Team (Latest Contact Info) Description 07/20/2017 Orders Only MMG CLINCONV Provider, MD Pérez [address] [place] [address] Social History Tobacco Use Types Packs/Day Years Used Date Smoking Tobacco: Never Assessed Comments Unknown Sex and Gender Information Value Date Recorded Sex Assigned at Not on file Legal Sex Female 11:27 PM SALESPERSON RECREATIONAL VEHICLES Gender Identity Female 08/08/2021 9:31 AM CDT [...] COVID: Suspected 09/01/2021 09/01/2021 09/02/2021 1:03 AM SALESPERSON RECREATIONAL VEHICLES COVID: Suspected 10/01/2021 10/01/2021 10/02/2021 4:52 AM SALESPERSON RECREATIONAL VEHICLES COVID19 10/01/2021 10/01/2021 10/15/2021 3:07 AM SALESPERSON RECREATIONAL VEHICLES COVID: Recovered Comment:Added based on recent COVID infection. 10/15/2021 10/20/2021 02/12/2022 3:05 AM C DT COVID: Suspected 12/11/2021 12/11/2021 12/12/2021 12:07 AM SALESPERSON RECREATIONAL VEHICLES COVID: Suspected 06/21/2023 06/21/2023 06/21/2023 3:30 PM CDT COVID: Suspected 06/21/2023 06/21/2023 06/21/2023 6:32 PM CDT documented as of this encounter Care Teams Medical Practice Assistant Relationship Specialty Start Date End Date Phillip Coker MD PCP - General 12/30/18 06/30/22 Antonio Baldwin PA [address] [facility] [address] [address] PCP - General Family Medicine 07/01/22 documented as of this encounter
--- OUTSIDE RECORDS SUMMARY | 2025-05-25 12:08 | XMS_ITS | Encounter Summary ---
Author Organization [facility] Healthcare Address [address] [place] [address] Care Team Providers Care Milk Delivery Driver Name Role Phone Phillip Coker MD Primary Care Provider [phone] Antonio Baldwin Primary Care Provider [phone] Reason for Visit * Reason Onset Date Comments No Show 01/15/2022 I called patient and she states that she will be in attendance tomorrow for her next scheduled visit. Encounter Details Date Type Department Care Team (Late st Contact Info) Description 01/15/2022 Documentation [facility] OP Physical Therapy [facility] [address] [address] Arlene Albert, PT No Show [...] on file Legal Sex Female 11:27 PM INVESTMENT ANALYST Gender Identity Female 08/08/2021 9:31 AM [...] documented as of this encounter Care Teams Milk Delivery Driver Relationship Specialty Start Date End Date Phillip Coker MD PCP - General 12/30/18 06/30/22 Antonio Baldwin PA [address] [facility] [address] [place] [address] [place] [address] PCP - General Family Medicine 07/01/22 documented as of this encounter
--- OUTSIDE RECORDS SUMMARY | 2025-05-25 12:08 | XMS_ITS | Encounter Summary ---
Author Organization [facility] Healthcare Address [address] [place] [address] Care Team Providers Care Petroleum Engineer Name Role Phone Antonio Baldwin Primary Care Provider [phone] Encounter Details Date Type Department Care Team (Late st Contact Info) Description 05/01/2025 Results Follow-Up [facility] Medical Group Family Medicine at [address] [place] [phone] Antonio Baldwin PA [address] [place] [address] [address] [place] [address] HIV 1/2 Antibody plus p24 Antigen Blood, [...] on file Legal Sex Female 11:27 PM AIRPORT TRAFFIC CONTROLLER Gender Identity Female 08/08/2021 9:31 AM CDT [...] on filedocumented in this encounter Care Teams Petroleum Engineer Relationship Specialty Start Date End Date Antonio Baldwin PA [address] [facility] [address] [place] [address] PCP - General Family Medicine 07/01/22 documented as of this encounter
[2025-05-25 12:10] VITALS: BP 122/73; PULSE 84; RESP 20; TEMP 37.2; O2SAT 99
[2025-05-25 12:23] LABS: Hematocrit 32.1 % (37.0-47.0); Hemoglobin 10.3 g/dL (12.0-15.0); Immature Granulocyte Percent A 0.4 % (0-0.5); Lymphocytes Absolute Auto 1.62 K/mm3 (0.9-3.2); Mean Corpuscular HGB Conc 32.1 g/dl (32-36); Mean Corpuscular Hemoglobin 23.9 pg (26-34); Mean Corpuscular Volume 74.5 fl (80-100); Nucleated Red Blood Cells Absolute Auto 0.000 K/mm3 (0.0-0.012); Nucleated Red Blood Cells Perc 0.0 % (0.0-0.2); Platelet Count Result 383 k/mm3 (150-375); Red Blood Count 4.31 M/mm3 (4.2-5.4); White Blood Count 12.6 K/mm3 (4.5-10.0)
--- NOTE | 2025-05-25 12:28 | ED_ITS ---
HPI - Chest Pain General Chief Complaint: Chest Pain Stated Complaint: CP,SOB,Weakness 28 wk Time Seen by Provider: 05/25/25 12:09 History of Present Illness HPI narrative: This is a 30-year-old female who presents to the ED for chest pain and shortness of breath. Patient states that this morning, she had onset of right upper and right lower has. She has also been having dyspnea on exertion. No prior history of DVTs PEs. She was seen by her OBGYN today symptoms and was advised to come to the ED. Denies fevers, chills cough, congestion. Related Data Home Medications ?Medication ?Instructions ?Recorded ?Confirmed ?Last Taken ?Type insulin glargine 100 unit/mL 16 unit subcut QAM 05/25/25 05/22/25 History subcutaneous solution (Lantus U-100 Insulin) insulin glargine 100 unit/mL 16 unit subcut QPM 05/25/25 05/22/25 History subcutaneous solution (Lantus U-100 Insulin) insulin lispro 100 unit/mL 6 unit subcut QACLUNCH 07/02/2505/25/25 05/22/25 History subcutaneous cartridge (Humalog U-100 Insulin) insulin lispro 100 unit/mL 8 unit subcut QACDINNER 02/2505/25/25 05/22/25 History subcutaneous cartridge (Humalog U-100 Insulin) Allergies Allergy/AdvReac Type Severity Reaction Status Date / Time Sulfa (Sulfonamide Allergy Mild Hives Verified 05/25/25 12:28 Antibiotics) Review of Systems 2 Review of Systems: Gen.: Denies fevers or chills Eyes: Denies eye pain or visual change ENT: Denies congestion Respiratory: As per HPI CV: As per HPI GI: Denies abdominal pain nausea, emesis or diarrhea denies burning, urgency, frequency or hematuria Musculoskeletal: Denies back pain or muscle pain Neuro: Denies numbness, tingling, weakness or focal weakness Skin: Denies rash Except as documented, all other systems reviewed and negative [facility] Past Medical History Medical History Diabetes History of miscarriage Allergies Headache GERD (gastroesophageal reflux disease) Pneumonia Surgical History Surgical History History of section History of facial surgery lip surgery Family History Family History Other Cancer Diabetes mellitus Heart disease Hypertension Thyroid disorder Social History Social History Smoking status: Never smoker Second hand tobacco smoke exposure: No Alcohol intake: never Substance use: never Substance use type: does not use Do You Feel Safe in your Home?: Yes Lack of Transportation: No Lack of Food: Never True Current Housing: I Have Housing Concerned About Future Housing: No Difficulty Paying Gas/Electric Bills: No Difficulty Paying for Meds: No Currently Unemployed: No Education: Associate Degree Difficulty w/ Childcare or Family Care: No Gender identity (if verbalized by the patient): Female Sexual Orientation (if Verbalized by the Patient): Straight or Heterosexual Spiritual care concerns: No Exam 2 Narrative: APPEARANCE: No acute distress, nontoxic, resting in bed EYES: EOMI HEENT: Normocephalic, atraumatic, OMM RESPIRATORY: No respiratory distress Clear to auscultation bilaterally with no rhonchi wheezing or rales. CARDIOVASCULAR: Regular rate and rhythm without murmurs rubs or gallops. ABDOMINAL: Uterus palpable above the umbilicus. Soft, nontender, no rebound or guarding MUSCULOSKELETAl: Moves all extremities. No clubbing, cyanosis or edema. NEURO: Awake and alert. Following commands, speech normal, no focal deficits SKIN:: Warm, dry. No rashes lesions or abrasions PSYCHIATRIC: Normal affect/mood, Course Vital Signs Vital signs: Vital Signs Temperature 99 F 05/25/25 12:10 Pulse Rate 84 05/25/25 12:10 Respiratory Rate 20 05/25/25 12:10 Blood Pressure 122/73 05/25/25 12:10 Pulse Oximetry 99 05/25/25 12:10 Oxygen Delivery Room Air 05/25/25 12:10 Temperature 99 F 05/25/25 12:10 Pulse Rate 84 05/25/25 14:25 Respiratory Rate 16 05/25/25 14:25 Blood Pressure 128/84 05/25/25 14:25 Pulse Oximetry 98 05/25/25 14:25 Oxygen Delivery Room Air 05/25/25 12:10 MDM - Chest Pain MDM Narrative Medical decision making narrative: 30-year-old female who presented to the ED for chest pain shortness of breath. Patient proximally 28 weeks gestation by ultrasound. Heart and lungs were clear. Abdomen was soft and nontender. Uterus was palpable superior to the umbilicus. EKG showed no concerning findings. Troponin negative. Mild anemia consistent with her . D dimer was elevated, however patient is low risk by YEARS criteria, so additional imaging is not indicated. Patient was feeling better after tylenol and lidoderm. She was deemed appropriate for discharge at this time. Advised to follow up with her Ob as scheduled. PAtient was agreeable to this plan. Given strict return precautions. Differential Diagnosis Differential diagnosis: Likely atypical chest pain, costochondritis, chest pain and other (PE) Medical Records Data Attestation: I reviewed the patient's medical records. Lab Data Attestation: I reviewed the patient's lab results. 05/25/25 12:17 05/25/25 12:17 Labs: Lab Results 05/25/25 Range/Units 12:17 WBC 12.6 H (4.5-10.0) K/mm3 RBC 4.31 (4.2-5.4) M/mm3 Hgb 10.3 L (12.0-15.0) g/dL Hct 32.1 L (37.0-47.0) % MCV 74.5 L (80-100) fl MCH 23.9 L (26-34) pg MCHC 32.1 (32-36) g/dl RDW 17.2 H (11.5-14.5) % Plt Count 383 H (150-375) k/mm3 MPV 8.9 (7.4-10.4) fl Immature Gran % (Auto) 0.4 (0-0.5) % Neut % (Auto) 80.1 H (45.5-73.1) % Lymph % (Auto) 12.8 L (18.3-44.2) % [place] % (Auto) 6.2 (2.6-8.5) % Eos % (Auto) 0.3 (0-4.4) % Baso % (Auto) 0.2 (0.2-1.2) % Lymph # (Auto) 1.62 (0.9-3.2) K/mm3 [place] # (Auto) 0.8 H (0.1-0.6) K/mm3 Eos # (Auto) 0.0 (0-0.3) K/mm3 Baso # (Auto) 0.0 (0.0-0.1) K/mm3 Abs Immat Gran (auto) 0.05 H (0.00-0.031) K/mm3 Absolute Neuts (auto) 10.1 H (1.3-6.7) K/mm3 Absolute Nucleated RBC 0.000 (0.0-0.012) K/mm3 Nucleated RBC % 0.0 (0.0-0.2) % PT 13.6 (11.1-14.7) Seconds INR 1.0 APTT 26.1 (22.3-36.8) Seconds D-Dimer 0.77 H (<0.48) ug/mL Sodium 136 L (137-145) mmol/L Potassium 4.0 (3.4-5.0) mmol/L Chloride 109 H (98-107) mmol/L Carbon Dioxide 20 L (22-30) mmol/L Anion Gap 7 (4-12) mmol/L BUN 9 (7-17) mg/dL Creatinine 0.41 L (0.7-1.0) mg/dL Estim Creat Clear Calc 185 ml/min Estimated GFR > 60 (59 - ) Glucose 82 (65-110) mg/dL Calcium 9.5 (8.4-10.2) mg/dL Total Bilirubin 0.2 (0.2-1.3) mg/dL AST 15 (14-36) U/L ALT 10 (6-35) U/L Alkaline Phosphatase 80 (38-126) U/L Troponin I < 0.012 (0.000-0.034) ng/mL Total Protein 7.4 (6.3-8.2) g/dL Albumin 3.7 (3.5-5.1) g/dL Lipase 68 (23-300) U/L Imaging Data Radiologist's impression: Impressions Chest X-Ray 05/25/25 12:51 IMPRESSION: 1: NO ACUTE CARDIOPULMONARY DISEASE. ECG Data EKG #1: Attestation: I personally reviewed and interpreted this ECG as follows: ECG completion date: 05/25/25 ECG completion time: 12:17 Prior ECG tracings: not available for review Interpretation: Normal sinus rhythm rate of 84, normal axis, normal intervals, no acute ST or T- wave changes Discharge Plan Discharge Clinical Impression: Chest pain during , Third trimester Patient Disposition: Home Condition: Stable Instructions: Antibiotic Form Additional Instructions: Labs, EKG, chest x-ray showed evidence of heart damage or pneumonia at this time. You are also determined to be low risk for a PE so additional imaging was not required. Continues to take Tylenol your pain. You were also given a prescription for Lidoderm, take this as prescribed. Follow-up with your OBGYN as scheduled. Any new or worsening symptoms. Patient Language: Macedonian Prescriptions: No Action PNV [id number] 30 mg iron-10 mg iron-1 mg capsule 1 cap PO DAILY Qty: 30 5RF Rx Instructions: 1 po daily terconazole 80 mg suppository 80 mg vaginal QHS 3 Days Qty: 3 0RF insulin glargine [Lantus U-100 Insulin] 100 unit/mL solution 16 unit subcut QAM insulin glargine [Lantus U-100 Insulin] 100 unit/mL solution 16 unit subcut QPM Humalog U-100 Insulin 100 unit/mL cartridge 6 unit subcut QACLUNCH Humalog U-100 Insulin 100 unit/mL cartridge 8 unit subcut QACDINNER nitrofurantoin macrocrystal 100 mg capsule 100 mg PO Q12H Qty: 10 0RF Rx Instructions: must administer with a meal/food ondansetron HCl 4 mg tablet 4 mg PO Q6H PRN (Reason: nausea and vomiting) Qty: 20 0RF (DME) Dexcom G7 Sensor Device See Rx Instructions .MEDSUPPLY Qty: 1 4RF Rx Instructions: Apply sensor for 10 days Follow-up/Referrals: Denny,OLIVA Alvarez [Primary Care Provider, Unknown] Stand Alone Forms: Work/School Release IP
[2025-05-25 12:36] LABS: Alanine Aminotransferase 10 U/L (6-35); Albumin Level 3.7 g/dL (3.5-5.1); Alkaline Phosphatase 80 U/L (38-126); Anion Gap 7 mmol/L (4-12); Aspartate Amino Transferase 15 U/L (14-36); Bilirubin,Total 0.2 mg/dL (0.2-1.3); Blood Urea Nitrogen 9 mg/dL (7-17); Calcium 9.5 mg/dL (8.4-10.2); Carbon Dioxide 20 mmol/L (22-30); Chloride 109 mmol/L (98-107); Estimated CRCL calculation 185 ml/min; Estimated Glomerular Filt Rate > 60; Glucose 82 mg/dL (65-110); Lipase 68 U/L (23-300); Potassium 4.0 mmol/L (3.4-5.0); Sodium 136 mmol/L (137-145); Total Protein 7.4 g/dL (6.3-8.2)
[2025-05-25 12:39] LABS: INR 1.0; Prothrombin Time 13.6 Seconds (11.1-14.7)
[2025-05-25 12:46] LABS: Partial Thromboplastin Time 26.1 Seconds (22.3-36.8)
[2025-05-25 12:47] LABS: Troponin I < 0.012 ng/mL (0.000-0.034)
[2025-05-25 13:00] VITALS: BP 114/71; PULSE 83; RESP 16; O2SAT 98
--- OUTSIDE RECORDS SUMMARY | 2025-05-25 13:12 | XMS_ITS | Encounter Summary ---
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
--- OUTSIDE RECORDS SUMMARY | 2025-05-25 13:12 | XMS_ITS | Encounter Summary ---
Author Organization [facility] Facility Care Team Providers Care Cinder Snapper Name Role Phone Phillip Coker MD Primary Care Provider [phone] Antonio Baldwin Primary Care Provider [phone] Encounter Details Date Type Department Care Team (Latest Contact Info) Description 10/28/2018 Orders Only [facility] ProviderPérez MD [address] [place] [address] Social History Tobacco Use Types Packs/Day Years Used Date Smoking Tobacco: Never Assessed Comments Unknown Sex and Gender Information Value Date Recorded Sex Assigned at Not on file Legal Sex Female 11:27 PM BAKER SECOND Gender Identity Female 08/08/2021 9:31 AM CDT Sexual Orientation Straight 08/08/2021 9: 31 AM CDT documented as of this encounter Plan of Treatment Not on file documented as of this encounter Procedures Procedure Name Priority Date/Time Associated Diagnosis Comments CARDIOLOGY REPORT 10/28/2018 12: 00 AM BAKER SECOND documented in this encounter Results * CARDIOLOGY REPORT (10/28/2018 12:00 AM BAKER SECOND) Anatomical Region Laterality Modality Other Narrative 10/28/2018 12:00 AM BAKER SECOND Ordered by an unspecified provider. Historical Provider [facility] MARTHA HARDING Final Result documented in this encounter Visit Diagnoses Not on filedocumented in this encounter Additional Health Concerns Infection Onset Date Last Indicated Resolved Time COVID: Suspected 09/01/2021 09/01/2021 09/02/2021 1:03 AM BAKER SECOND COVID: Suspected 10/01/2021 10/01/2021 10/02/2021 4:52 AM BAKER SECOND COVID19 10/01/2021 10/01/2021 10/15/2021 3:07 AM BAKER SECOND COVID: Recovered Comment:Added based on recent COVID infection. 10/15/2021 10/20/2021 02/12/2022 3:05 AM C DT COVID: Suspected 12/11/2021 12/11/2021 12/12/2021 12:07 AM BAKER SECOND COVID: Suspected 06/21/2023 06/21/2023 06/21/2023 3:30 PM CDT COVID: Suspected 06/21/2023 06/21/2023 06/21/2023 6:32 PM CDT documented as of this encounter Care Teams Cinder Snapper Relationship Specialty Start Date End Date Phillip Coker MD PCP - General 12/30/18 06/30/22 Antonio Baldwin PA [address] [facility] [address] [address] PCP - General Family Medicine 07/01/22 documented as of this encounter
--- OUTSIDE RECORDS SUMMARY | 2025-05-25 13:12 | XMS_ITS | Encounter Summary ---
Author Organization [facility] Facility Care Team Providers Care Wheat Combine Driver Name Role Phone Phillip Coker MD Primary Care Provider [phone] Antonio Baldwin Primary Care Provider [phone] Encounter Details Date Type Department Care Team (Latest Contact Info) Description 07/20/2017 Orders Only [facility]INCON[facility] Provider, MD Pérez [address] [place] [address] Social History Tobacco Use Types Packs/Day Years Used Date Smoking Tobacco: Never Assessed Comments Unknown Sex and Gender Information Value Date Recorded Sex Assigned at Not on file Legal Sex Female 11:27 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 10/15/2021 10/20/2021 02/12/2022 3:05 AM C DT COVID: Suspected 12/11/2021 12/11/2021 12/12/2021 12:07 AM DRESS OPERATOR COVID: Suspected 06/21/2023 06/21/2023 06/21/2023 3:30 PM CDT COVID: Suspected 06/21/2023 06/21/2023 06/21/2023 6:32 PM CDT documented as of this encounter Care Teams Wheat Combine Driver Relationship Specialty Start Date End Date Phillip Coker MD PCP - General 12/30/18 06/30/22 Antonio Baldwin PA [address] [facility] [address] [address] PCP - General Family Medicine 07/01/22 documented as of this encounter
--- OUTSIDE RECORDS SUMMARY | 2025-05-25 13:12 | XMS_ITS | Clinical Summary ---
Author Organization [facility] Address [facility] [place] [address] Care Team Providers Care Cytotechnologist Name Role Phone MiloJoyce sarabia LANNY Primary Care Provider [phone] Allergies Active Allergy Reactions Criticality Noted Date [...] 87.5 kg (193 lb) 09/01/2016 11:58 AM SENIOR COLDFUSION DEVELOPER Height 154.9 cm (5' 1) 09/01/2016 11:58 AM SENIOR COLDFUSION DEVELOPER Body Mass Index 36.47 09/01/2016 11:58 AM SENIOR COLDFUSION DEVELOPER Plan of Treatment Health Maintenance Due Date [...] complete this topic Insurance DONTAE Care Teams Cytotechnologist Relationship Specialty Start Date End Date Joyce [place] [address] PCP - General NURSE PRACTITIONER 01/27/19
--- OUTSIDE RECORDS SUMMARY | 2025-05-25 13:12 | XMS_ITS | Encounter Summary ---
Author Organization [facility] Healthcare Address [address] [place] [address] Care Team Providers Care Clearance Center Manager Name Role Phone Phillip Coker MD Primary Care Provider [phone] Antonio Baldwin Primary Care Provider [phone] Reason for Visit * Reason Onset Date Comments No Show 01/15/2022 I called patient and she states that she will be in attendance tomorrow for her next scheduled visit. 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
--- OUTSIDE RECORDS SUMMARY | 2025-05-25 13:12 | XMS_ITS | Clinical Summary ---
Author Organization [facility] [address] [facility] Address [address] [place] [address] Care Team Providers Care Java Software Engineer Name Role Phone Antonio Baldwin Primary Care Provider [phone] Allergies Active Allergy Reactions Criticality Noted Date [...] 02/01/2023 Assessment & Plan (09/24/2024 9:53 PM RADIOTELEGRAPHIST): Chronic uncontrolled Intolerant to metformin Start trulicity [...] Work on low carb diet Refer to faculty research physician Order a1c in 3mo Dyspnea 12/23/2022 Left foot pain 12/23/2022 Overview (12/23/2022): COnt diclofenac Cont podiatry Intractable migraine with aura without status mi grainosus 10/07/2022 Assessment & Plan (09/24/2024 9:52 PM RADIOTELEGRAPHIST): Chronic stable and improving with quilipta. Continue [...] dosing Assessment & Plan (09/16/2023 4:00 PM RADIOTELEGRAPHIST): Chronic condition Start quilipta Assessment & Plan (10/07/2022 10:23 AM RADIOTELEGRAPHIST): Chronic uncontrolled Start quilipta Wrist sprain, right, [...] MRI Assessment & Plan (12/01/2021 12:34 PM RADIOTELEGRAPHIST): Chronic with worsening pain Refer to p.tMary eval and treat Snoring 06/11/2021 Daytime somnolence 06/11/2021 Parasomnia 06/11/2021 BMI 40.0-44.9, adult 06/11/2021 Assessment & Plan (12/01/2021 12:42 PM RADIOTELEGRAPHIST): Chronic condition not well controlled patient advised [...] 03/12/2021 Assessment & Plan (12/01/2021 12:42 PM RADIOTELEGRAPHIST): Chronic condition order labs for evaluation Eczema of both hands 02/17/2021 Assessment & Plan (02/01/2023 12:56 PM CDT): Chronic and not well controlled Refill triamcinolone. Assessment & Plan (10/07/2022 10:30 AM RADIOTELEGRAPHIST): Start triamcinolone tid prn hands Assessment & [...] 07/18/2020 Assessment & Plan (10/07/2022 10:31 AM RADIOTELEGRAPHIST): Refer to hematology Family history of hemoglobin [...] 07/26/2017 Assessment & Plan (10/07/2022 10:31 AM RADIOTELEGRAPHIST): Chronic Failed p.t. 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) 05/01/2025 8:15 AM CDT Office Visit [facility] at [address] [place] [phone] Antonio Baldwin PA Needle stick, hypodermic, accidental, subsequent encounter (Primary Dx); Vitamin D deficiency; Iron deficiency anemia, unspecified iron deficiency anemia type; 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) 05/01/2025 Results Follow-Up [facility] at [address] [place] [address] Antonio Baldwin PA HIV 1/2 [...] on file Legal Sex Female 11:27 PM RADIOTELEGRAPHIST Gender Identity Female 08/08/2021 9:31 AM CDT Sexual Orientation Straight 08/08/2021 9: 31 AM CDT Obstetrics History Last Filed Vital Signs Vital Sign Reading Time Taken Comments Blood Pressure 112/76 05/01/2025 8:31 AM CDT Pulse 90 05/01/2025 8:31 AM CDT Temperature 36.7 C (98 F) 05/01/2025 8:31 AM CDT Respiratory Rate 18 09/22/2024 11:36 AM RADIOTELEGRAPHIST Oxygen Saturation 98% 05/01/2025 8:31 AM CDT [...] encounter LIPID PANEL Routine 09/23/2024 7:24 AM RADIOTELEGRAPHIST 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 73 m2 [...] [facility] LAB BLOOD ORDERABLES Final Resu lt [facility] [address] [facility] Department [place] [address] * (ABNORMAL) Differential, auto (05/01/2025 9:27 AM CDT) Pathologist [facility] Neutrophil abs 7.94(H) 1.50 - 6.50 K/cumm Imm gran abs 0.05 0.00 - 0.10 K/cumm [facility] Lymphocyte abs 1.55 0.80 - 3.30 K/cumm [facility] Monocyte abs 0.54 0.20 - 0.80 K/cumm [facility] Eosinophil abs 0.05 0.00 - 0.50 K/cumm [facility] Basophil abs 0.03 0.00 - 0.10 K/cumm [facility] Neutrophil pct 78.1 % [facility] Comment: Interpretive Data Percent cell count reference [...] LAB BLOOD ORDERABLES Final Resu lt [facility] [address] [facility] Department [place] [address] * (ABNORMAL) Iron profile w/ IBC (05/01/2025 9:27 AM CDT) Iron 47 35 - 145 mcg/dL TIBC 446(H) 250 - 400 mcg/dL [facility] Transferrin saturation 11(L) 20 - 50 % [facility] Blood 05/01/2025 9:27 AM CDT 05/01/2025 12:12 PM CDT Antonio [facility] LAB BLOOD ORDERABLES Final Resu lt Performing Organization Address City/[facility] Co de Phone Number [facility] [address] [address] * HIV 1/2 Antibody plus p24 Antigen Blood (05/01/2025 9:27 AM CDT) [facility] HIV 1/2 ab + p24 ag [...] ORDE RABLES Final Result Performing Organization Address [facility] de Phone Number [facility] [address] [address] * (ABNORMAL) CBC with auto differential (05/01/2025 9:27 AM CDT) [facility] WBC 10.16(H) 3.80 - 9.90 K/cumm Hgb 10.6(L) 11.9 - 15.5 g/dL [facility] Hct 33.6(L) 35.6 - 45.5 % [facility] Plt 385 150 - 400 K/cumm [facility] MPV 9.5 9.1 - 12.3 fL [facility] RBC 4.42 3.90 - 5.20 M/cumm [facility] MCV 76.0(L) 81.3 - 96.4 fL [facility] MCH 24.0(L) 27.1 - 33.3 pg [facility] MCHC 31.5(L) 32.3 - 35.7 g/dL [facility] RDW CV 18.3(H) 11.1 - 14.9 % [facility] RDW SD 50.3(H) 35.7 - 48.1 fL [facility] NRBC abs 0.00 0.00 - 0.01 K/cumm [facility] Blood 05/01/2025 9:27 AM CDT 05/01/2025 12:12 PM CDT Antonio [facility] LAB BLOOD ORDERABLES Final Resu lt Performing Organization Address City/[facility] Co de Phone Number [facility]IG[facility] [place] [address] * Hepatitis C antibody Blood (05/01/2025 9:27 AM CDT) [facility] Hep C Ab Nonreactive Nonreactive Comment: [...] ORDE RABLES Final Result Performing Organization Address [facility] Co de Phone Number [address] [email or web address] [address] * Vitamin D 25 hydroxy (05/01/2025 9:27 AM CDT) [facility] Vitamin D 25-OH 34.0 30.0 - 80.0 ng/mL Blood 05/01/2025 9:27 AM CDT 05/01/2025 12:12 PM CDT Antonio [facility] LAB BLOOD ORDERABLES Final Resu lt Performing Organization Address City/[facility]/ZIP Co de Phone Number [facility] [address] [place] [address] * (ABNORMAL) Hemoglobin A1c (05/01/2025 9:27 AM CDT) Pathologist [facility] Hgb A1C 6.2(H) 4.0 - 5.6 % Estimated Average Glucose 131 mg/dL [facility] Comment: The ADA recommends reporting an estimated Average Glucose (eAG) with all Hemoglobin A1c results using the equation derived from a study of 507 normal and diabetic adults. Minority populations were underrepresented and children were not included. (Diabetes Care 31:2479-9662, 2008). The eAG is not equivalent to a fasting glucose. Blood 05/01/2025 9:27 AM CDT 05/01/2025 12:12 PM CDT Antonio [facility] LAB BLOOD ORDERABLES Final Resu lt Performing Organization Address [facility]/ZIP Co de Phone Number [facility] [address] [place] [address] * Ferritin (05/01/2025 9:27 AM CDT) [facility] Ferritin 16 13 - 150 ng/mL Blood 05/01/2025 9:27 AM CDT 05/01/2025 12:12 PM CDT Antonio [facility] LAB BLOOD ORDERABLES Final Resu lt Performing Organization Address City/[facility]/ZIP Co de Phone Number [facility] [address] [place] [address] * (ABNORMAL) Comprehensive metabolic panel (05/01/2025 9:27 AM CDT) Pathologist [facility] Sodium 136 135 - 145 mmol/L Potassium, pl 3.9 3.3 - 4.9 mmol/L [facility] Chloride 104 97 - 110 mmol/L [facility] CO2 21(L) 22 - 32 mmol/L [facility] Anion gap 11 2 - 15 mmol/L [facility] BUN 6 6 - 25 mg/dL [facility] Creatinine 0.43(L) 0.60 - 1.10 mg/dL [facility] Glucose 94 70 - 199 mg/dL [facility] Comment: Interpretive Data Fasting glucose >/= 126 [...] 2022. Calcium 9.2 8.5 - 10.3 mg/dL [facility] Bilirubin, total <0.2 0.1 - 1.2 mg/dL [facility] Protein, pl 7.0 6.5 - 8.5 g/dL [facility] Albumin 3.8 3.5 - 5.0 g/dL [facility] Alk phos 79 40 - 130 Units/L [facility] ALT 6(L) 7 - 45 Units/L [facility] AST 16 10 - 45 Units/L [facility] Blood 05/01/2025 9:27 AM CDT 05/01/2025 12:12 PM CDT us Antonio [facility] LAB BLOOD ORDERABLES Final Resu lt [facility] [address] [facility] Department [place] [address] * (ABNORMAL) Lipid panel (09/23/2024 7:24 AM RADIOTELEGRAPHIST) Cholesterol 142 30 - 199 mg/dL Comment: [...] ratio 4 [facility] Blood 09/23/2024 7:24 AM RADIOTELEGRAPHIST 09/23/2024 9:41 AM RADIOTELEGRAPHIST us Antonio [facility] LAB BLOOD ORDERABLES Final Resu lt [facility] [address] [facility] Department [place] [address] * Albumin Creatinine Ratio, Urine (09/23/2024 7:20 AM RADIOTELEGRAPHIST) Albumin Ur <12.0 mg/L Comment: Interpretive Data No reference range established. Current interpretive data was last revised 2019. Creatinine Ur 197.0 mg/dL [facility] Comment: Interpretive Data No reference range established. Current interpretive data was last revised 2019. Albumin Creatinine Ratio, Ur <6 1 - 29 mg/g [facility] Urine 09/23/2024 7:20 AM RADIOTELEGRAPHIST 09/23/2024 9:37 AM RADIOTELEGRAPHIST us Antonio [facility] LAB URINE ORDERABLES Final Resu lt [facility] [address] [facility] Department [place] [address] from Last 3 Months or Most Recently Relevant to Health Maintenance Insurance [facility] * Guarantor: [facility] [employer] Account Type Relation to Patient Date of Phone Billing Address Third Democrat Liability Other Care Teams Java Software Engineer Relationship Specialty Start Date End Date Antonio Baldwin PA [address] [facility] [address] [address] PCP - General Family Medicine 07/01/22
[2025-05-25] MEDS: ACETAMINOPHEN 500 MG TABLET 1000 MG PO (13:24)
[2025-05-25] MEDS: LIDOCAINE 5% PATCH 1 PATCH TRANSDERM (13:25)
[2025-05-25 14:25] VITALS: BP 128/84; PULSE 84; RESP 16; O2SAT 98
== END 2025-05-25 14:27 | disposition home or self-care (01) ==
PROVIDERS: Emergency Medicine; Emergency Provider Student in an Organized Health Care Education/Training Program; PCP Physician Assistant Medical
DX: O26.893 Other specified pregnancy related conditions, third trimester (principal); R07.9 Chest pain, unspecified; O24.113 Pre-existing type 2 diabetes mellitus, in pregnancy, third trimester; E11.9 Type 2 diabetes mellitus without complications; O99.613 Diseases of the digestive system complicating pregnancy, third trimester; K21.9 Gastro-esophageal reflux disease without esophagitis; Z87.01 Personal history of pneumonia (recurrent); Z79.4 Long term (current) use of insulin; Z3A.28 28 weeks gestation of pregnancy; R94.31 Abnormal electrocardiogram [ECG] [EKG]
CPT/HCPCS: 36415; 71045; 80053; 83690; 84484; 85025; 85380; 85610; 85730; 93005; 99284; A9270

== ENCOUNTER 2025-06-02 07:28 | Outpatient (CLI) | payer OTHER, SELFPAY ==
--- OUTSIDE RECORDS SUMMARY | 2025-06-02 07:32 | XMS_ITS | Encounter Summary ---
Author Organization [facility] Facility Care Team Providers Care Color Strainer Name Role Phone Phillip Coker MD Primary Care Provider [phone] Antonio Baldwin Primary Care Provider [phone] Encounter Details Date Type Department Care Team (Latest Contact Info) Description 10/28/2018 Orders Only [facility] CLINCON[facility] ProviderPérez MD [address] [place] [address] Social History Tobacco Use Types Packs/Day Years Used Date Smoking Tobacco: Never Assessed Comments Unknown Sex and Gender Information Value Date Recorded Sex Assigned at Not on file Legal Sex Female 11:27 PM FLOAT PHLEBOTOMIST Gender Identity Female 08/08/2021 9:31 AM CDT Sexual Orientation Straight 08/08/2021 9: 31 AM CDT documented as of this encounter Plan of Treatment Not on file documented as of this encounter Procedures Procedure Name Priority Date/Time Associated Diagnosis Comments CARDIOLOGY REPORT 10/28/2018 12: 00 AM FLOAT PHLEBOTOMIST documented in this encounter Results * CARDIOLOGY REPORT (10/28/2018 12:00 AM FLOAT PHLEBOTOMIST) Anatomical Region Laterality Modality Other Narrative 10/28/2018 12:00 AM FLOAT PHLEBOTOMIST Ordered by an unspecified provider. Historical Provider [facility] MARTHA HARDING Final Result documented in this encounter Visit Diagnoses Not on filedocumented in this encounter Additional Health Concerns Infection Onset Date Last Indicated Resolved Time COVID: Suspected 09/01/2021 09/01/2021 09/02/2021 1:03 AM FLOAT PHLEBOTOMIST COVID: Suspected 10/01/2021 10/01/2021 10/02/2021 4:52 AM FLOAT PHLEBOTOMIST COVID19 10/01/2021 10/01/2021 10/15/2021 3:07 AM FLOAT PHLEBOTOMIST COVID: Recovered Comment:Added based on recent COVID infection. 10/15/2021 10/20/2021 02/12/2022 3:05 AM C DT COVID: Suspected 12/11/2021 12/11/2021 12/12/2021 12:07 AM FLOAT PHLEBOTOMIST COVID: Suspected 06/21/2023 06/21/2023 06/21/2023 3:30 PM CDT COVID: Suspected 06/21/2023 06/21/2023 06/21/2023 6:32 PM CDT documented as of this encounter Care Teams Color Strainer Relationship Specialty Start Date End Date Phillip Coker MD PCP - General 12/30/18 06/30/22 Antonio Baldwin PA [address] [facility] [address] [address] PCP - General Family Medicine 07/01/22 documented as of this encounter
--- OUTSIDE RECORDS SUMMARY | 2025-06-02 07:32 | XMS_ITS | Clinical Summary ---
Author Organization [facility] Address [facility] [place] [address] Care Team Providers Care Food And Beverage Operations Manager Name Role Phone MiloJoyce sarabia LANNY Primary Care Provider [phone] Allergies Active Allergy Reactions Criticality Noted Date [...] 87.5 kg (193 lb) 09/01/2016 11:58 AM TOBACCO CLASSER Height 154.9 cm (5' 1) 09/01/2016 11:58 AM TOBACCO CLASSER Body Mass Index 36.47 09/01/2016 11:58 AM TOBACCO CLASSER Plan of Treatment Health Maintenance Due Date [...] complete this topic Insurance DONTAE Care Teams Food And Beverage Operations Manager Relationship Specialty Start Date End Date Joyce [place] [address] PCP - General NURSE PRACTITIONER 01/27/19
--- OUTSIDE RECORDS SUMMARY | 2025-06-02 07:32 | XMS_ITS | Encounter Summary ---
Author Organization [facility] Facility Care Team Providers Care Infrastructure Consultant Name Role Phone Phillip Coker MD Primary Care Provider [phone] Antonio Baldwin Primary Care Provider [phone] Encounter Details Date Type Department Care Team (Latest Contact Info) Description 07/20/2017 Orders Only [facility] CLINCONV Provider, MD Pérez [address] [place] [address] Social History Tobacco Use Types Packs/Day Years Used Date Smoking Tobacco: Never Assessed Comments Unknown Sex and Gender Information Value Date Recorded Sex Assigned at Not on file Legal Sex Female 11:27 PM VIDEO PRODUCTION SPECIALIST Gender Identity Female 08/08/2021 9:31 AM [...] COVID: Suspected 09/01/2021 09/01/2021 09/02/2021 1:03 AM VIDEO PRODUCTION SPECIALIST COVID: Suspected 10/01/2021 10/01/2021 10/02/2021 4:52 AM VIDEO PRODUCTION SPECIALIST COVID19 10/01/2021 10/01/2021 10/15/2021 3:07 AM VIDEO PRODUCTION SPECIALIST COVID: Recovered Comment:Added based on recent COVID infection. 10/15/2021 10/20/2021 02/12/2022 3:05 AM C DT COVID: Suspected 12/11/2021 12/11/2021 12/12/2021 12:07 AM VIDEO PRODUCTION SPECIALIST COVID: Suspected 06/21/2023 06/21/2023 06/21/2023 3:30 PM CDT COVID: Suspected 06/21/2023 06/21/2023 06/21/2023 6:32 PM CDT documented as of this encounter Care Teams Infrastructure Consultant Relationship Specialty Start Date End Date Phillip Coker MD PCP - General 12/30/18 06/30/22 Antonio Baldwin PA [address] [facility] [address] [address] PCP - General Family Medicine 07/01/22 documented as of this encounter
--- OUTSIDE RECORDS SUMMARY | 2025-06-02 07:32 | XMS_ITS | Encounter Summary ---
Author Organization [facility] Healthcare Address [address] [place] [address] Care Team Providers Care Deck Mate Name Role Phone Phillip Coker MD Primary Care Provider [phone] Antonio Baldwin Primary Care Provider [phone] Reason for Visit * Reason Onset Date Comments No Show 01/15/2022 I called patient and she states that she will be in attendance tomorrow for her next scheduled visit. Encounter Details Date Type Department Care Team (Late st Contact Info) Description 01/15/2022 Documentation [facility] OP Physical Therapy [facility] [address] [address] Arlene Albert, PT No Show [...] on file Legal Sex Female 11:27 PM SCULLION CHIEF Gender Identity Female 08/08/2021 9:31 AM CDT [...] documented as of this encounter Care Teams Deck Mate Relationship Specialty Start Date End Date Phillip Coker MD PCP - General 12/30/18 06/30/22 Antonio Baldwin PA [address] [facility] [address] [place] [address] [place] [address] PCP - General Family Medicine 07/01/22 documented as of this encounter
--- OUTSIDE RECORDS SUMMARY | 2025-06-02 07:32 | XMS_ITS | Clinical Summary ---
Author Organization [facility] [address] [facility] Address [address] [place] [address] Care Team Providers Care Police Dispatcher Name Role Phone Antonio Baldwin Primary Care Provider [phone] Allergies Active Allergy Reactions Criticality Noted Date [...] 02/01/2023 Assessment & Plan (09/24/2024 9:53 PM LAW TUTOR): Chronic uncontrolled Intolerant to metformin Start trulicity [...] on low carb diet Refer to automotive porter Order a1c in 3mo Dyspnea 12/23/2022 Left foot pain 12/23/2022 Overview (12/23/2022): COnt diclofenac Cont podiatry Intractable migraine with 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 Continue [...] dosing Assessment & Plan (09/16/2023 4:00 PM LAW TUTOR): Chronic condition Start quilipta Assessment & Plan (10/07/2022 10:23 AM LAW TUTOR): Chronic uncontrolled Start quilipta Wrist sprain, right, [...] MRI Assessment & Plan (12/01/2021 12:34 PM LAW TUTOR): Chronic with worsening pain Refer to p.tMary eval and treat Snoring 06/11/2021 Daytime somnolence 06/11/2021 Parasomnia 06/11/2021 BMI 40.0-44.9, adult 06/11/2021 Assessment & Plan (12/01/2021 12:42 PM LAW TUTOR): Chronic condition not well controlled patient advised [...] 03/12/2021 Assessment & Plan (12/01/2021 12:42 PM LAW TUTOR): Chronic condition order labs for evaluation Eczema of both hands 02/17/2021 Assessment & Plan (02/01/2023 12:56 PM CDT): Chronic and not well controlled Refill triamcinolone. Assessment & Plan (10/07/2022 10:30 AM LAW TUTOR): Start triamcinolone tid prn hands Assessment & [...] 07/18/2020 Assessment & Plan (10/07/2022 10:31 AM LAW TUTOR): Refer to hematology Family history of hemoglobin [...] 07/26/2017 Assessment & Plan (10/07/2022 10:31 AM LAW TUTOR): Chronic Failed p.t. 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) 05/01/2025 8:15 AM CDT Office Visit [facility] at [address] [place] [phone] Antonio Baldwin PA Needle stick, hypodermic, accidental, subsequent encounter (Primary Dx); Vitamin D deficiency; Iron deficiency anemia, unspecified iron deficiency anemia type; 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) 05/01/2025 Results Follow-Up [facility] at [address] [place] [address] Antonio Baldwin PA HIV 1/2 [...] on file Legal Sex Female 11:27 PM LAW TUTOR Gender Identity Female 08/08/2021 9:31 AM CDT Sexual Orientation Straight 08/08/2021 9: 31 AM CDT Obstetrics History Last Filed Vital Signs Vital Sign Reading Time Taken Comments Blood Pressure 112/76 05/01/2025 8:31 AM CDT Pulse 90 05/01/2025 8:31 AM CDT Temperature 36.7 C (98 F) 05/01/2025 8:31 AM CDT Respiratory Rate 18 09/22/2024 11:36 AM LAW TUTOR Oxygen Saturation 98% 05/01/2025 8:31 AM CDT [...] encounter LIPID PANEL Routine 09/23/2024 7:24 AM LAW TUTOR 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 73 m2 [...] B[facility]TISTE LAB BLOOD ORDERABLES Final Resu lt [facility] [address] [facility] Department [place] [address] * (ABNORMAL) Differential, auto (05/01/2025 9:27 AM CDT) Pathologist [facility] Neutrophil abs 7.94(H) 1.50 - 6.50 K/cumm Imm gran abs 0.05 0.00 - 0.10 K/cumm [facility] Lymphocyte abs 1.55 0.80 - 3.30 K/cumm [facility] Monocyte abs 0.54 0.20 - 0.80 K/cumm [facility] Eosinophil abs 0.05 0.00 - 0.50 K/cumm [facility] Basophil abs 0.03 0.00 - 0.10 K/cumm [facility] Neutrophil pct 78.1 % [facility] Comment: Interpretive Data Percent cell count [...] LAB BLOOD ORDERABLES Final Resu lt [facility] [address] [facility] Department [place] [address] * (ABNORMAL) Iron profile w/ IBC (05/01/2025 9:27 AM CDT) Iron 47 35 - 145 mcg/dL TIBC 446(H) 250 - 400 mcg/dL [facility] Transferrin saturation 11(L) 20 - 50 % [facility] Blood 05/01/2025 9:27 AM CDT 05/01/2025 12:12 PM CDT Antonio [facility] LAB BLOOD ORDERABLES Final Resu lt Performing Organization Address [facility] Co de Phone Number [facility] [address] [address] * HIV 1/2 Antibody plus p24 Antigen Blood (05/01/2025 9:27 AM CDT) [facility] HIV 1/2 ab + p24 ag [...] RABLES Final Result Performing Organization Address [facility] de Phone Number [facility] [address] [address] * (ABNORMAL) CBC with auto differential (05/01/2025 9:27 AM CDT) [facility] WBC 10.16(H) 3.80 - 9.90 K/cumm Hgb 10.6(L) 11.9 - 15.5 g/dL [facility] Hct 33.6(L) 35.6 - 45.5 % [facility] Plt 385 150 - 400 K/cumm [facility] MPV 9.5 9.1 - 12.3 fL [facility] RBC 4.42 3.90 - 5.20 M/cumm [facility] MCV 76.0(L) 81.3 - 96.4 fL [facility] MCH 24.0(L) 27.1 - 33.3 pg [facility] MCHC 31.5(L) 32.3 - 35.7 g/dL [facility] RDW CV 18.3(H) 11.1 - 14.9 % [facility] RDW SD 50.3(H) 35.7 - 48.1 fL [facility] NRBC abs 0.00 0.00 - 0.01 K/cumm [facility] Blood 05/01/2025 9:27 AM CDT 05/01/2025 12:12 PM CDT Antonio [facility] LAB BLOOD ORDERABLES Final Resu lt Performing Organization Address [facility] Co de Phone Number [facility] [employer] [place] [address] * Hepatitis C antibody Blood (05/01/2025 9:27 AM CDT) [facility] Hep C Ab Nonreactive Nonreactive Comment: [...] RABLES Final Result Performing Organization Address [facility] Co de Phone Number [address] [place] [address] * Vitamin D 25 hydroxy (05/01/2025 9:27 AM CDT) [facility] Vitamin D 25-OH 34.0 30.0 - 80.0 ng/mL Blood 05/01/2025 9:27 AM CDT 05/01/2025 12:12 PM CDT Antonio [facility] LAB BLOOD ORDERABLES Final Resu lt Performing Organization Address City/[facility]/ZIP Co de Phone Number [facility] [address] [place] [address] * (ABNORMAL) Hemoglobin A1c (05/01/2025 9:27 AM CDT) Pathologist [facility] Hgb A1C 6.2(H) 4.0 - 5.6 % Estimated Average Glucose 131 mg/dL [facility] Comment: The ADA recommends reporting an estimated Average Glucose (eAG) with all Hemoglobin A1c results using the equation derived from a study of 507 normal and diabetic adults. Minority populations were underrepresented and children were not included. (Diabetes Care 31:7190-9126, 2008). The eAG is not equivalent to a fasting glucose. Blood 05/01/2025 9:27 AM CDT 05/01/2025 12:12 PM CDT Antonio [facility] LAB BLOOD ORDERABLES Final Resu lt Performing Organization Address [facility]/ZIP Co de Phone Number [facility] [address] [place] [address] * Ferritin (05/01/2025 9:27 AM CDT) [facility] Ferritin 16 13 - 150 ng/mL Blood 05/01/2025 9:27 AM CDT 05/01/2025 12:12 PM CDT Antonio [facility] LAB BLOOD ORDERABLES Final Resu lt Performing Organization Address City/[facility]/ZIP Co de Phone Number [facility] [address] [place] [address] * (ABNORMAL) Comprehensive metabolic panel (05/01/2025 9:27 AM CDT) Pathologist [facility] Sodium 136 135 - 145 mmol/L Potassium, pl 3.9 3.3 - 4.9 mmol/L [facility] Chloride 104 97 - 110 mmol/L [facility] CO2 21(L) 22 - 32 mmol/L [facility] Anion gap 11 2 - 15 mmol/L [facility] BUN 6 6 - 25 mg/dL [facility] Creatinine 0.43(L) 0.60 - 1.10 mg/dL [facility] Glucose 94 70 - 199 mg/dL [facility] Comment: Interpretive Data Fasting glucose >/= [...] 2022. Calcium 9.2 8.5 - 10.3 mg/dL [facility] Bilirubin, total <0.2 0.1 - 1.2 mg/dL [facility] Protein, pl 7.0 6.5 - 8.5 g/dL [facility] Albumin 3.8 3.5 - 5.0 g/dL [facility] Alk phos 79 40 - 130 Units/L [facility] ALT 6(L) 7 - 45 Units/L [facility] AST 16 10 - 45 Units/L [facility] Blood 05/01/2025 9:27 AM CDT 05/01/2025 12:12 PM CDT us Antonio [facility] LAB BLOOD ORDERABLES [facility] [address] [facility] Department [place] [address] * (ABNORMAL) Lipid panel (09/23/2024 7:24 AM LAW TUTOR) Cholesterol 142 30 - 199 mg/dL Comment: [...] ratio 4 [facility] Blood 09/23/2024 7:24 AM LAW TUTOR 09/23/2024 9:41 AM LAW TUTOR us Antonio [facility] LAB BLOOD ORDERABLES Final Resu lt [facility] [address] [facility] Department [place] [address] * Albumin Creatinine Ratio, Urine (09/23/2024 7:20 AM LAW TUTOR) Albumin Ur <12.0 mg/L Comment: Interpretive Data No reference range established. Current interpretive data was last revised 2019. Creatinine Ur 197.0 mg/dL [facility] Comment: Interpretive Data No reference range established. Current interpretive data was last revised 2019. Albumin Creatinine Ratio, Ur <6 1 - 29 mg/g [facility] Urine 09/23/2024 7:20 AM LAW TUTOR 09/23/2024 9:37 AM LAW TUTOR us Antonio [facility] LAB URINE ORDERABLES Final Resu lt [facility] [address] [facility] Department [place] [address] from Last 3 Months or Most Recently Relevant to Health Maintenance Insurance [facility] * Guarantor: [facility] [employer] Account Type Relation to Patient Date of Phone Billing Address Third Libertarian Liability Other Care Teams Police Dispatcher Relationship Specialty Start Date End Date Antonio Baldwin PA [address] [facility] [address] [address] PCP - General Family Medicine 07/01/22
[2025-06-02 09:44] LABS: Hematocrit 31.1 % (37.0-47.0); Hemoglobin 9.7 g/dL (12.0-15.0); Immature Granulocyte Percent A 0.6 % (0-0.5); Lymphocytes Absolute Auto 1.25 K/mm3 (0.9-3.2); Mean Corpuscular HGB Conc 31.2 g/dl (32-36); Mean Corpuscular Hemoglobin 23.5 pg (26-34); Mean Corpuscular Volume 75.5 fl (80-100); Nucleated Red Blood Cells Absolute Auto 0.000 K/mm3 (0.0-0.012); Nucleated Red Blood Cells Perc 0.0 % (0.0-0.2); Platelet Count Result 337 k/mm3 (150-375); Red Blood Count 4.12 M/mm3 (4.2-5.4); White Blood Count 10.1 K/mm3 (4.5-10.0)
[2025-06-02 10:11] LABS: Glucose 1 Hour PP 50gm Dose 217 mg/dL
[2025-06-02 10:47] LABS: Syphilis IgG/IgM Antibody Non-Reactive (Nonreactive)
[2025-06-02 10:50] LABS: Hepatitis B Surface Antigen Negative (Negative)
[2025-06-02 10:52] LABS: HIV 1/2 Ab P24 Ag Result Negative (Negative)
== END 2025-06-02 07:29 | disposition home or self-care (01) ==
LOC: ANHLAB 07:30
PROVIDERS: PCP Physician Assistant Medical; Visit Provider Nurse Practitioner Obstetrics & Gynecology
DX: Z34.90 Encounter for supervision of normal pregnancy, unspecified, unspecified trimester (principal)
CPT/HCPCS: 36415; 82947; 85025; 86593; 86703; 87340; G0432

== ENCOUNTER 2025-07-11 13:45 | Outpatient (RCR) | payer OTHER, SELFPAY ==
--- NOTE | 2025-06-08 12:20 | OPREHPOC ---
Outpatient Therapy Plan of Care This is a Multidisciplinary Plan of Care that may contain components documented by all disciplines (PT, OT, and ST.) PT Problem 1 PT Problem #1 Knowledge Deficit PT Goal 1 Goal / Goal Update 1. Patient will perform independent HEP Target Visit 2 PT Problem 2 PT Problem #2 Pain PT Goal 1 Goal / Goal Update 1. Pain no higher than 2/10 with typical activities 2. Patient will report no pain getting out of bed 3. Patient able to stand at least 20 minutes to cook meals Target Visit 8 PT Problem 3 PT Problem #3 Impaired Strength PT Goal 1 Goal / Goal Update 1. Improve hip strength to 4+/5 emily Target Visit 8
--- NOTE | 2025-06-08 12:20 | PTOPEVAL1 ---
Assessment and note entered by Lindsay Michael DPT Evaluation Information Assessment Status Evaluation ICD-10 Condition Codes (PT) Weakness R53.1,Pelvic and perineal pain R10.2 Subjective Information Pt reports emily hip pain and heaviness, patient is 30 weeks . Pain started 1-2 months ago. Pain is lateral hips and into low abdomen/pelvis. Highest pain 5/10 and lowest 1/10. Denies n/t. Difficulty getting out of bed and walking due to pain. Difficulty standing more than 5 minutes due to pain and gets short of breath. This is patients 4th , 2 previous C-sections. No other DEAN [employer] BO[employer] history. No b/b history. No significant history of pelvic pain. Patient goal: decrease the pain Returns to MD today, currently going 2 times a month. Reported Pain Level Pain Score 1: Self Report Assessment PT Clinical Summary The patient is presenting to skilled therapy at 30 weeks with bilateral hip and pelvic pain . She presents with decreased hip strength and gait impairments that are contributing to her pain and difficulty with typical activities including getting out of bed and standing more than 5 minutes. She will benefit from therapy to address these impairments as her progresses in order to reduce pain and improve function. Plan of Care Interventions Gait Training,Hot Pack/Cold Pack,Manual Therapy, Neuro Re-education,Patient/Caregiver Education, Therapeutic Activities,Therapeutic Exercise PT Services Indicated Yes Treatment Frequency and 1 time a week for 4-8 visits Duration These treatments will address the objective and functional deficits as defined above. The patient will be advanced safely and appropriately in order for the patient to progress towards his/her prior level of function. Additional exercises will be introduced and as well as a comprehensive home exercise program upon discharge, if needed, ?to ensure carryover of functional gains achieved in the clinic. This treatment plan has been reviewed and agreement upon by the patient.
--- NOTE | 2025-06-15 15:16 | PCPTNOTE ---
Pt cancelled appointment 06/15/25. Unknown specifics.
--- NOTE | 2025-07-06 14:46 | PCPTNOTE ---
Patient did not show up for appt 07/06/25.
--- NOTE | 2025-07-20 15:23 | PCPTNOTE ---
Patient did not show up for appointment 07/20/25. Called and left voicemail for patient.
--- NOTE | 2025-07-31 13:23 | PTOPDC ---
Assessment and note entered by Lindsay Michael DPDante Evaluation Information Assessment Status Discharge - Pt Not Present ICD-10 Condition Codes (PT) Weakness R53.1,Pelvic and perineal pain R10.2 Subjective Information - Assessment PT Clinical Summary Patient scheduled for C section this date. Her case will be discharged. Plan of Care PT Services Indicated No
== END 2025-07-31 14:45 | disposition home or self-care (01) ==
LOC: ANHPT 13:45
PROVIDERS: PCP Physician Assistant Medical; Visit Provider Nurse Practitioner Obstetrics & Gynecology
DX: O26.893 Other specified pregnancy related conditions, third trimester (principal); R10.20 Pelvic and perineal pain unspecified side; M25.559 Pain in unspecified hip; Z3A.30 30 weeks gestation of pregnancy
CPT/HCPCS: 97112; 97140; 97161

== ENCOUNTER 2025-07-26 12:08 | Outpatient (NON) | payer OTHER, SELFPAY ==
[2025-07-26 12:22] VITALS: BMI 39.4
--- OUTSIDE RECORDS SUMMARY | 2025-07-26 13:13 | XMS_ITS | Clinical Summary ---
Author Organization [facility] [employer] Address [address] [place] [address] Care Team Providers Care Supervisor Remelt Name Role Phone Unavailable Primary Care Provider Unavailabl e Source Comments [facility] [employer],non-owned Affiliates and Associated Physician Practices is amultiple site organization consisting of ambulatory clinics and hospital sitesin [place], [place], [place] and [place]. This disclosure is being madepursuant to the Care Everywhere program and may not contain all information available regarding this patient. Last updated 18.[facility] [employer] Allergies Active Allergy Reactions Criticality Noted Date Comments Sulfa Drugs Unknown High 04/19/2020 Medications * Be aware that medications may not be up to date on this document. Alwaysverify current medications with the patient. cetirizine (ZYRTEC) 10 MG tabletIndications :Allergic rhinitis Take 1 Tab by mouth at bedtime. 30 3 010 Active fluticasone propionate (FLUTICASONE PROPIONATE) 50 MCG/ACT nasal sprayIndications: Allergic rhinitis [place] 2 Sprays into each nostril daily. 1 3 010 Active Additional Information Patient not taking.Reason: Patient adjusted, Reported on 06/27/2025 fluticasone hfa 44 (FLOVENT HFA 44) 44 MCG/ACT inhalerIndication s:Extrinsic asthma, unspecified (HCC) Inhale 2 Puffs by mouth 2 times daily. 1 3 010 Active Additional Information Patient not taking.Reason: Patient adjusted, Reported on 06/27/2025 albuterol HFA (PROVENTIL;VENTOL IN;PROAIR) 108 (90 BASE) MCG/ACT inhalerIndication s:Extrinsic asthma, unspecified ([facility]) Inhale 2 Puffs by mouth every 4 hours as needed for Shortness of Breath, Wheezing and Cough. 1 3 010 Active Additional Information Patient not taking.Reason: Patient adjusted, Reported on 06/27/2025 olopatadine (PATADAY) 0.2 % ophthalmic solutionIndicatio ns:Other chronic allergic conjunctivitis 1 Drop daily. 2.5 mL 2 010 Active Additional Information Patient not taking.Reason: Patient adjusted, Reported on 05/02/2025 Glucagon (Baqsimi One Pack) 3 MG/DOSE POWD [place] 1 Each into the nose as needed For emergency use only 1 Each 025 Active Vit-Fe Fumarate-FA ( vitamin) 28-0.8 MG tablet Take 1 (one) tablet by mouth once daily Active magnesium oxide (Mag-Ox) 400 MG tablet Take 1 (one) tablet by mouth once daily 30 tablet 5 025 Active Additional Information Patient not taking.Reason: Patient adjusted, Informant: Patient, Reported on 06/27/2025 insulin pen needle (Novofine) 32G X 6 MM MISCIndications:T ype 2 diabetes mellitus in , first trimester ([facility]) 1 (one) Each by Injection route 4 times daily 100 Each 5 025 Active Continuous Glucose Sensor (Dexcom G7 Sensor) MISCIndications:P regnancy complicated by pre-existing type 2 diabetes in second trimester ([facility]) Use 1 applicator every 10 days 3 Each 2 025 Active insulin glargine (Lantus/Semglee) 100 units/mL penIndications:Pr e-existing type 2 diabetes mellitus during in third trimester ([facility]) Prime needle with 2 units waste, then inject 26 units every morning and 26 units every night. Increase dose as directed due to increasing insulin requirements during . Max total daily dose of 100 units. 30 mL 5 025 Active insulin lispro (HumaLOG;ADMelog) 100 UNIT/ML penIndications:Pr e-existing type 2 diabetes mellitus during in third trimester ([facility]) Prime needle with 2 units waste, then inject 18 units with breakfast, 18 units with lunch, and 18 units with dinner. Increase doses as directed due to increasing insulin requirements during . Max total daily dose of 100 units. 30 mL 5 Active insulin glargine (Lantus/Semglee) 100 units/mL pen Inject 12 units in the morning and 12 units at bedtime. Take dosages approximately 12 hours apart. Increase dose as directed due to increasing insulin requirements during . Max total daily dose = 50u 15 mL 5 025 2024 Discontinued insulin lispro (HumaLOG;ADMelog) 100 UNIT/ML pen Inject 4 units with Lunch and dinner meals containing carbohydrates. Increase dose as directed due to increasing insulin requirements during . Max total daily dose 50. 15 mL 5 025 2024 Discontinued insulin lispro (HumaLOG;ADMelog) 100 UNIT/ML penIndications:Pr e-existing type 2 diabetes mellitus during in third trimester ([facility]) Prime needle with 2 units waste, then inject 12 units with breakfast, 12 units with lunch, and 16 units with dinner. Increase doses as directed due to increasing insulin requirements during . Max total daily dose of 50 units. 15 mL 025 2024 Discontinued insulin lispro (HumaLOG;ADMelog) 100 UNIT/ML penIndications:Pr e-existing type 2 diabetes mellitus during in third trimester ([facility]) Prime needle with 2 units waste, then inject 16 units with breakfast, 16 units with lunch, and 16 units with dinner. Increase doses as directed due to increasing insulin requirements during . Max total daily dose of 100 units. 30 mL 5 025 2024 Discontinued Active Problems Problem Noted Date Diagnosed Date complicated by pre -existing type 2 diabetes in second trimester 04/04/2025 Encounter for anatomic survey 04/04/2025 Obesity affecting in third trimester 0 04/04/2025 Estimated Date of Delivery Comme nts Yes 08/16/2025 Based on Ultraso und, Irregular Cycles Encounters Date Type Department Care Team Description 07/20/2025 7:49 AM CDT - 07/20/2025 11:59 PM CDT Hospital Encounter [facility] [address] [place] [phone] Margarito He MD Discharge Disposition: Home or Self Care 07/16/2025 Telephone Critical access hospital [facility] [address] [place] [phone] Clarice Chavez RN Appointment (Patient called to reschedule her appts 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 ) 07/13/2025 8:10 AM CDT - 07/13/2025 11:59 PM CDT Hospital Encounter [facility] access [facility] [address] [place] [phone] Margarito He MD Discharge Disposition: Home or Self Care 07/09/2025 7:29 AM CDT - 07/09/2025 11:59 PM CDT Hospital Encounter Critical access [facility] [address] [place] [phone] Ashley Pa MD Discharge Disposition: Home or Self Care 07/06/2025 1:39 PM CDT - 07/06/2025 11:59 PM CDT Hospital Encounter Critical access hospital [facility] Care [address] [place] [phone] Yadira Wei MD Discharge Disposition: Home or Self Care 06/27/2025 9:14 AM CDT - 06/27/2025 11:59 PM CDT Hospital Encounter Critical access hospital M[facility] & Care [address] [place] [phone] Yadira Wei MD Discharge Disposition: Home or Self Care 06/27/2025 Telephone Critical access hospital Maternal & Care [address] [place] [phone] Clarice Chavez, RN Question (LANNY Castro called to make sure patient is scheduled for growth ultrasound today with [facility]. ) 06/12/2025 1:32 PM CDT - 06/12/2025 11:59 PM CDT Hospital Encounter [address] [place] [address] Krystal Pizarro APRN-CNP Discharge Disposition: Home or Self Care 06/12/2025 1:32 PM CDT - 06/12/2025 2:37 PM CDT Hospital Encounter [facility] [address] [place] [phone] Fabby Reddy MD 05/30/2025 1:30 PM CDT - 05/30/2025 11:59 PM CDT Hospital Encounter Critical access hospital M[facility] & Care [address] [place] [phone] Yadira Wei MD Discharge Disposition: Home or Self Care 05/22/2025 Telephone [facility] [address] [phone] Allegra Johnson Appointment 05/17/2025 Telephone Critical access hospital Maternal & Care [address] [place] [address] Krystal Pizarro APRN-CNP Follow-up 05/02/2025 1:03 PM CDT - 05/02/2025 11:59 PM CDT Hospital Encounter Critical access hospital Maternal & Care [address] [place] [phone] Yadira Wei MD Discharge Disposition: Home or Self Care 05/01/2025 Telephone Critical access hospital Maternal & Care [address] [place] [phone] Clarice Chavez RN Appointment from Last 3 Months Social History Tobacco Use Types Packs/Day Years Used Date Smoking Tobacco: Never Smokeless Tobacco: Never Tobacco Cessation:Counseling Given: Not Answered Alcohol Use Standard Drinks/Week Comments Not Currently 0 (1 standard drink = 0.6 oz pur e alcohol) Estimated Date of Delivery Comme nts Yes 08/16/2025 Based on Ultraso und, Irregular Cycles Sex and Gender Information Value Date Recorded Sex Assigned at Not on file Legal Sex Female 5:40 AM [employer] Gender Identity Not on file Sexual Orientation Not on file Last Filed Vital Signs Vital Sign Reading Time Taken Comments Blood Pressure 129/83 07/20/2025 8:56 AM CDT Pulse 84 07/20/2025 8:56 AM CDT Temperature - - Respiratory Rate 16 04/04/2025 8:13 AM CDT Oxygen Saturation - - Inhaled Oxygen Concentration - - Weight 120.7 kg (266 lb) 06/27/2025 9:28 AM CDT Height 160 cm (5' 3) 06/27/2025 9:28 AM CDT Body Mass Index 47.12 06/27/2025 9:28 AM CDT Plan of Treatment Upcoming Encounters Date Type Department Care Team (Late st Contact Info) Description 07/27/2025 8:15 AM CDT Hospital Encounter Critical access hospital Maternal & Care [address] [place] [phone] [place] [address] [place] [phone] 07/30/2025 7:30 AM CDT Hospital Encounter [facility] Care [address] [place] [phone] 08/03/2025 8:15 AM CDT Hospital Encounter Critical access hospital Maternal & Care [address] [place] [phone] 08/06/2025 7:30 AM [employer] Appointment Critical access hospital Maternal & Care [address] [place] [phone] Health Maintenance Due Date Last Done Comments HIV SCREENING 01/04/2008 HEPATITIS C SCREENING 12/30/2010 DTAP/TDAP/TD VACCINES (1 - Tdap) 01/04/2012 HEPATITIS B VACCINE (1 of 3 - 19+ 3-dose series) 01/04/2012 PNEUMOCOCCAL VACCINE (1 of 2 - PCV) 01/04/2012 PAP SMEAR 2014 HPV VACCINE (1 - 3-dose SCDM series) 01/04/2020 DEPRESSION SCREENING 10/04/2024 OB-ONE HOUR GLUCOSE 05/10/2025 OB-TDAP CURRENT 05/17/20252019, 10/24/2019, 08/13/2015, Additional history exists OB-RHOGAM INJECTION 05/24/2025 COVID-19 VACCINE ( season) 2025 06/14/2021, 05/24/2021 INFLUENZA VACCINE (#1) 2025 , 07/23/2023, 07/04/2023, Additional history exists Respiratory Syncytial Virus (RSV) Vaccine Pt: or over 60 yrs (1 - Risk 1-dose series) 06/21/2025 OB-GROUP B STREP SCREEN 07/12/2025 ZOSTER VACCINE (1 of 2) 2043 HIB [...] Procedure Name Priority Date/Time Associated Diagnosis Comments BIOPHYSICAL PROFILE W NST Routine 07/09/2025 8:05 AM CDT complicated by pre-existing type 2 diabetes in second trimester (HCC) Severe obesity due to excess calories affecting in second trimester ([facility]) Encounter for ultrasound to assess growth (HCC) Encounter for other screening follow-up ([facility]) 33 weeks gestation of ([facility]) BIOPHYSICAL PROFILE W NST Routine 07/06/2025 2:45 PM CDT complicated by pre-existing type 2 diabetes in second trimester (HCC) Severe obesity due to excess calories affecting in second trimester (HCC) Encounter for ultrasound to assess growth (HCC) Encounter for other screening follow-up ([facility]) 33 weeks gestation of ([facility]) BIOPHYSICAL PROFILE W NST Routine 06/27/2025 9:51 AM CDT complicated by pre-existing type 2 diabetes in second trimester (HCC) Severe obesity due to excess calories affecting in second trimester (HCC) Encounter for ultrasound to assess growth (HCC) Encounter for other screening follow-up (HCC) 33 weeks gestation of (HCC) ECHO COMPLETE CG Routine 06/12/2025 2:37 PM CDT complicated by pre-existing type 2 diabetes in second trimester (HCC) 20 weeks gestation of (HCC) SONOGRAM - COMPLETE Routine 05/30/2025 2 :16 PM CDT complicated by pre-existing type 2 diabetes in second trimester (HCC) 28 weeks gestation of (HCC) Encounter for ultrasound to assess growth (HCC) Encounter for follow-up ultrasound of anatomy ([facility]) Severe obesity due to excess calories affecting in third trimester (HCC) SONOGRAM - COMPLETE Routine 05/02/2025 1 :32 PM CDT complicated by pre-existing type 2 diabetes in second trimester (HCC) 24 weeks gestation of (HCC) Encounter for follow-up ultrasound of anatomy ([facility]) Type 2 diabetes mellitus in , first trimester (HCC) Encounter for ultrasound to assess growth ([facility]) Encounter for anatomic survey ([facility]) from Last 3 Months Results * Biophysical Profile w NST (07/09/2025 8:05 AM CDT) Only the most recent of3 resultswithin the time period is included. Linked Results Indication ======== Pre-existing type 2 diabetes mellitus, in Normal echo Obesity complicating , Class 3 - BMI of 40.0 or greater History ====== OB History 4. Para 2 [id number] 1. live 2015. Gest. age 39 w + 0 d. Weight 3,742 g. Sex of child: female. Details: 2. miscarriage 2019 3. live 2019. Gest. age 39 w + 0 d. Weight 3,685 g. Sex of child: male. Details: C/S NRFS Lab Tests Test Date Result Not performed Maternal Assessment Physical Exam Height 160 cm, 5 ft 3 in. Weight 105 kg, 232 lb. Initial weight 109 kg, 241 lb. BMI 41.10 kg/m . Initial BMI 42.69 kg/m . Weight gain -4 kg, -9 lb Method ====== Transabdominal ultrasound examination. View: Sufficient ========= Aldana . Number of fetuses: 1 Dating ====== Date Details Gest. age JOHN LMP 11/04/2024 Cycle: irregular cycle 35 w + 2 d 08/11/2025 Stated JOHN 34 w + 4 d 08/16/2025 Previous U/S 12/26/2024 CRL 7.9 mm 34 w + 4 d 08/16/2025 Assigned dating based on ultrasound (CRL), selected on 01/31/2025 34 w + 4 d 08/16/2025 General Evaluation Cardiac activity present. FHR 130 bpm. Presentation: cephalic Placenta: Placental site: anterior Amniotic Fluid Assessment ==== Amount of AF: normal FARHAD 12.8 cm. Q1 3.7 cm, Q2 3.5 cm, Q3 3.5 cm, Q4 2.1 cm Biophysical Profile 2: breathing movements 2: Gross body movements 2: tone 2: Amniotic fluid volume NST: reactive 10/10 Biophysical profile score Non Stress Test NST interpretation: reactive. Baseline variability: moderate The FHR baseline ranged from 120 to 130 bpm. No significant FHR decelerations were detected during today?s (discontinuous) FHT. Growth Overview Exam date GA BPD (mm) HC (mm) AC (mm) FL (mm) HL (mm) EFW (g) 03/09/2025 17w 1d 37.9 69% 137.3 40% 117.9 62% 26.2 76% 24.5 76% 205 76% 04/04/2025 20w 6d 48.6 42% 177.7 16% 162 58% 34.7 44% 35.2 86% 394 53% 05/02/2025 24w 6d 60.3 31% 222.3 12% 214.6 75% 49.7 89% 879 86% 05/30/2025 28w 6d 72.8 49% 277.2 62% 259.7 80% 57.5 71% 1505 80% 06/27/2025 32w 6d 83.1 61% 302.5 31% 318.8 99% 63.9 42% 60.7 98% 2466 88% Anatomy The following structures appear normal: Abdomen Stomach. Kidneys. Bladder. sex: female. Impression ========= 1) Aldana gestation, 34w4d 2) The amniotic fluid volume is within normal limits 3) Reassuring biophysical profile Comment ======== ultrasound alone cannot detect all structural, genetic, or functional , placental, or maternal abnormalities Follow-up ======== 1) Close maternal movement monitoring, weekly amniotic fluid assessment, and twice weekly NSTs 2) Repeat growth assessment in ~2 weeks Coding ====== Diagnoses O99.213, E66.813: Obesity complicating , Class 3 - BMI of 40.0 or greater O24.113: Pre-existing type 2 diabetes mellitus, in Procedures 95803: US Uterus Limited 28299: Biophysical Profile W NST Logentries PACS Anatomical Region Laterality Modality Other 07/09/2025 8:05 AM CDT Jeramie Lassiter MD [facility] ORDERABLES Edited Result - Final * ECHO COMPLETE CG (06/12/2025 2:37 PM CDT) MV E pk tatum 37.24 cm/s [facility] CV F UJI PACS MV A pk tatum 62.36 cm/s [facility] CV F UJI PACS Anatomical Region Laterality Modality Ultrasound 06/12/2025 1:55 PM CDT Narrative 06/12/2025 2:45 PM CDT Name: Yenni Francois Patient Exam Info Gender: Female Patient Status: O/P : 1995 Admit Date: 06/12/2025 Exam Date/Time: 06/12/2025 1:55 PM Site: [facility] Current Location: CARE EStudy Quality: Diagnostic quality Staff Ordering Provider: Krystal Pizarro Interpreting Physician: Fabby Reddy MD Law Office Assistant: Carmencita Guzman [facility] Study Info Procedure: ECHO COMPLETE CG Indications: O24.112 - complicated by pre-existing type 2 diabetes in second trimester (HCC) Maternal Gestational Status GA by EDC: 30 wks , 5 days EDC: 08/16/2025 Type: Aldana Age: 30 yrs Lie: Vertex Summary * The echocardiogram was within normal limits. * Small atrial and ventricular septal defects and persistent ductus arteriosus cannot be excluded as findings. Anatomic Relationships Left sided cardiac apex (levocardia). There is normal visceral-cardiac situs, and normal segmental cardiac anatomical relationship. Systemic Veins There is normal systemic venous return. Pulmonary Veins The visualized pulmonary veins drain normally to the left atrium. Right Atrium The right atrial size is normal. Left Atrium The left atrial size is normal. Atrial Septum Patent foramen ovale with open foramen flap. Color flow is right to left. Right Ventricle The right ventricular cavity size is normal. The right ventricular wall thickness is normal. The right ventricular systolic function is normal. RV Outflow Tract The right ventricular outflow tract is normal. Left Ventricle The left ventricular cavity size is normal. The left ventricular wall thickness is normal. The left ventricular systolic function is normal. Ventricular Septum There is no ventricular septal defect with no shunting. LV Outflow Tract The left ventricular outflow tract is normal. Tricuspid Valve The tricuspid valve is structurally normal. The tricuspid inflow pattern is normal. Tricuspid velocity is within the normal range. There is no tricuspid regurgitation. Mitral Valve The mitral valve is structurally normal. The mitral inflow pattern is normal. Mitral velocity is within the normal range. There is no mitral regurgitation. Aorta aortic arch visualized and is without obstruction by 2D, color flow and Doppler. Pulmonary Arteries The main pulmonary artery is normal, with confluent branch pulmonary arteries. Ductus Arteriosus The antegrade flow velocity and pattern in the ductal arch is normal. A normal ductus arteriosus is appreciated. Doppler Flow in the ductus venosus is normal. The umbilical vein flow pattern is normal. The umbilical artery flow pattern is normal. Hydrops Assessment No pericardial effusion. No ascites present. No pleural effusion(s). Rhythm The rhythm is normal. There is 1:1 AV conduction. Pulmonary Valve The pulmonic valve is normal-sized. The transpulmonic velocity is within normal range. There is no pulmonic regurgitation. Aortic Valve The aortic valve is normal-sized. The transaortic velocity is within normal range. There is no aortic regurgitation. Doppler Measurements (Fetus A) Atrioventricular Valves Name Value Normal Z-Score Percentile Atrioventricular Valves Doppler TV E Peak Velocity 0.3 m/s TV A Peak Velocity 0.4 m/s MV E Peak Velocity 0.4 m/s MV A Peak Velocity 0.6 m/s (Fetus A) Semilunar Valves Name Value Normal Z-Score Percentile Semilunar Valves Doppler PV Peak Velocity. 0.6 m/s AV Peak Velocity () 0.9 m/s (Fetus A) Heart Rate Name Value Normal Z-Score Percentile Heart Rate HR 132 bpm Report Signatures Finalized by Fabby Reddy MD on 06/12/2025 02:45 PM Procedure Note Fabby Reddy MD - 06/12/2025 Name: Yenni Francois Patient Exam Info Gender: Female Patient Status: O/P : 1995 Admit Date: 06/12/2025 Exam Date/Time: 06/12/2025 1:55 PM Site: [facility] Current Location: CARE EStudy Quality: Diagnostic quality Staff Ordering Provider: Krystal Pizarro Interpreting Physician: Fabby Reddy MD Law Office Assistant: Carmencita Guzman RDCS Study Info Procedure: ECHO COMPLETE CG Indications: O24.112 - complicated by pre-existing type 2 diabetes insecond trimester (HCC) Maternal Gestational Status GA by EDC: 30 wks , 5 days EDC: 08/16/2025 Type: Aldana Age: 30 yrs Lie: Vertex Summary * The echocardiogram was within normal limits. * Small atrial and ventricular septal defects and persistent ductus arteriosus cannot be excluded as findings. Anatomic Relationships Left sided cardiac apex (levocardia). There is normal visceral-cardiac situs, and normal segmental cardiac anatomical relationship. Systemic Veins There is normal systemic venous return. Pulmonary Veins The visualized pulmonary veins drain normally to the left atrium. Right Atrium The right atrial size is normal. Left Atrium The left atrial size is normal. Atrial Septum Patent foramen ovale with open foramen flap. Color flow is right toleft. Right Ventricle The right ventricular cavity size is normal. The right ventricularwall thickness is normal. The right ventricular systolic function is normal. RV Outflow Tract The right ventricular outflow tract is normal. Left Ventricle The left ventricular cavity size is normal. The left ventricular wall thickness is normal. The left ventricular systolic function is normal. Ventricular Septum There is no ventricular septal defect with no shunting. LV Outflow Tract The left ventricular outflow tract is normal. Tricuspid Valve The tricuspid valve is structurally normal. The tricuspid inflow patternis normal. Tricuspid velocity is within the normal range. There is notricuspid regurgitation. Mitral Valve The mitral valve is structurally normal. The mitral inflow pattern is normal. Mitral velocity is within the normal range. There is no mitral regurgitation. Aorta aortic arch visualized and is without obstruction by 2D, colorflow and Doppler. Pulmonary Arteries The main pulmonary artery is normal, with confluent branch pulmonary arteries. Ductus Arteriosus The antegrade flow velocity and pattern in the ductal arch is normal.A normal ductus arteriosus is appreciated. Doppler Flow in the ductus venosus is normal. The umbilical vein flow patternis normal. The umbilical artery flow pattern is normal. Hydrops Assessment No pericardial effusion. No ascites present. No pleural effusion(s). Rhythm The rhythm is normal. There is 1:1 AV conduction. Pulmonary Valve The pulmonic valve is normal-sized. The transpulmonic velocity iswithin normal range. There is no pulmonic regurgitation. Aortic Valve The aortic valve is normal-sized. The transaortic velocity is withinnormal range. There is no aortic regurgitation. Doppler Measurements (Fetus A) Atrioventricular Valves Name Value Normal Z-ScorePercentile Atrioventricular Valves Doppler TV E Peak Velocity 0.3 m/s TV A Peak Velocity 0.4 m/s MV E Peak Velocity 0.4 m/s MV A Peak Velocity 0.6 m/s (Fetus A) Semilunar Valves Name Value Normal Z-ScorePercentile Semilunar Valves Doppler PV Peak Velocity. 0.6 m/s AV Peak Velocity () 0.9 m/s (Fetus A) Heart Rate Name Value Normal Z-ScorePercentile Heart Rate HR 132 bpm Report Signatures Finalized by Fabby Reddy MD on 06/12/2025 02:45 PM Krystal Pizarro APRN-[facility] ECHO CUPKY Fin al Result * Sonogram - Complete (05/30/2025 2:16 PM CDT) Only the most recent of2 resultswithin the time period is included. Pathologist [facility] Linked Results Indication ======== Pre-existing type 2 diabetes mellitus, in Obesity complicating , Class 3 - BMI of 40.0 or greater Incomplete anatomy History ====== OB History 4. Para 2 [id number] 1. live 2015. Gest. age 39 w + 0 d. Weight 3,742 g. Sex of child: female. Details: 2. miscarriage 2018 3. live 2019. Gest. age 39 w + 0 d. Weight 3,685 g. Sex of child: male. Details: C/S NRFS Lab Tests Test Date Result Not performed Maternal Assessment = Physical Exam Height 160 cm, 5 ft 3 in. Weight 101 kg, 222 lb. Initial weight 109 kg, 241 lb. BMI 39.33 kg/m . Initial BMI 42.69 kg/m . Weight gain -9 kg, -19 lb Method ====== Transabdominal ultrasound. View: Sufficient ========= Aldana . Number of fetuses: 1 Dating ====== Date Details Gest. age JOHN LMP 11/04/2024 Cycle: irregular cycle 29 w + 4 d 08/11/2025 Stated JOHN 28 w + 6 d 08/16/2025 Previous U/S 12/26/2024 CRL 7.9 mm 28 w + 6 d 08/16/2025 U/S 05/30/2025 based upon AC, BPD, Femur, HC 30 w + 0 d 08/08/2025 Assigned dating based on ultrasound (CRL), selected on 01/31/2025 28 w + 6 d 08/16/2025 General Evaluation Cardiac activity present. FHR 149 bpm. Presentation: cephalic Placenta: Placental site: anterior Amniotic fluid: Amount of AF: normal. MVP 5.6 cm. FARHAD 14.9 cm. Q1 5.6 cm, Q2 2.8 cm, Q3 3.3 cm, Q4 3.1 cm Biometry BPD 72.8 mm 29w 1d 49% Hadlock HC 277.2 mm 30w 2d 62% Hadlock AC 259.7 mm 30w 1d 80% Hadlock Femur 57.5 mm 30w 1d 71% Hadlock HC / AC 1.07 Weight Calculation: EFW 1,505 g 80% Hadlock EFW (lb,oz) 3 lb 5 oz EFW by Hadlock ([id number]) appropriate Growth Overview = Exam date GA BPD (mm) HC (mm) AC (mm) FL (mm) HL (mm) EFW (g) 03/09/2025 17w 1d 37.9 69% 137.3 40% 117.9 62% 26.2 76% 24.5 76% 205 76% 04/04/2025 20w 6d 48.6 42% 177.7 16% 162 58% 34.7 44% 35.2 86% 394 53% 05/02/2025 24w 6d 60.3 31% 222.3 12% 214.6 75% 49.7 89% 879 86% 05/30/2025 28w 6d 72.8 49% 277.2 62% 259.7 80% 57.5 71% 1505 80% Anatomy The following structures appear normal: Head / Neck Cranium. Face Orbits. Heart / Thorax Bicaval view. Abdomen Stomach. Kidneys. The following structures could not be adequately visualized: Heart / Thorax Aortic arch view. sex: female. Impression ========= Single, live, intrauterine at 28w 6d The size is appropriate. 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 scheduled for 06/12 Follow-up ======== In 4 weeks begin weekly BPP with 2x weekly NST and assess growth Coding ====== Diagnoses Z36.2: Encounter for other screening follow-up O99.213, E66.813: Obesity complicating , Class 3 - BMI of 40.0 or greater O24.113: Pre-existing type 2 diabetes mellitus, in Procedures 38686: US Preg Uterus Follow Up [facility] [employer] PACS Anatomical Region Laterality Modality Other 05/30/2025 2:16 PM CDT Jeramie Lassiter MD [facility] ORDERABLES Edited Result - Final from Last 3 Months Insurance [facility]
--- OUTSIDE RECORDS SUMMARY | 2025-07-26 13:13 | XMS_ITS | Clinical Summary ---
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 Height 154.9 cm (5' 1) 09/01/2016 11:58 AM PEDIATRIC UROLOGIST Body Mass Index 36.47 09/01/2016 11:58 AM PEDIATRIC UROLOGIST Plan of Treatment Health Maintenance Due Date [...] 2023 Cervical Cancer Screening with HPV 2023 DTaP, Tdap and Td Vaccines ( 2 - Td or Tdap) 05/03/2025 05/03/2015 COVID-19 Vaccine ( - 2024-2 6 season) 2025 Influenza Adult (#1) 2025 07/22/2016 Hepatitis A Vaccines Aged Out No long er eligible based [...] patient's age to complete this topic Insurance MEDICAID Care Teams Radiation Protection Specialist Relationship Specialty Start Date End Date Joyce Pedraza NP [address] [place] [address] PCP - General NURSE PRACTITIONER 01/27/19
--- OUTSIDE RECORDS SUMMARY | 2025-07-26 13:13 | XMS_ITS | Data Portability ---
Author Organization [facility] OFFICE Address [address] [place] [id number] Assessment Encounter Date Assessment Date Assessment LastModified by Organization Details LastModified Time 11/20/2020 11/20/2020 Discussed with patient findings, diagnosis, and prognosis. Discussed evaluation and treatment options including risks and benefits with patient, and patient expressed understanding. The following interventions were recommended: heart healthy low-fat, low-sodium diet, begin regular exercise,maintai n appropriate weight, continue current medications, and medical follow-up as noted. Not available 11/20/2020 11:12:34 03/12/2021 03/12/2021 Discussed [...] By Organization Details Last Modified Time 11/20/2020 [id number] When You Want to Lose Weight: Care Instructions [email or web address] Not available 11/20/2020 11:19:54 leg and ankle edema: care instructions [email or web address] Not available 11/20/2020 11:19:54 03/12/2021 [id number] When You Want to Lose Weight: Care Instructions [email or web address] Not available 03/12/2021 17:16:33 leg and ankle edema: care instructions [email or web address] Not available 03/12/2021 17:16:33 high cholesterol : care instructions [email or web address] Not available 03/12/2021 17:16:33 01/12/2023 [id number] Exercise advised Low cholesterol diet advised Low sodium diet advised. [email or web address] Not available 01/12/2023 11:32:47 05/01/2023 [id number] Exercise advised Low cholesterol diet advised Low [...] diogr am No observ ation record ed. [email or web address] Not Available 03/13 15:21:32 10/15/19 23 10/14/2022 santos shipley diogr am No observ ation record ed. [email or web address] Not Available 2022 12:38:28 Result Notes Documentation Provider Name and Address Organization Details Recorded Time Lipid Panel, Blood : 01/15/23:Na 137,K 3.9,Cl 102,CO2 25,Glu 127,BUN 10,Cr 0.50,AST 13,ALT 13,CK 66. 01/15/23:TC 163,TG 53,LDL 45,HDL 107. Cotter Mal null, [place] - [facility] 01/15/2023 17:29:36 Problems Name Problem SNOMED Code Status Onset Date Resolution Date Notes Provider Name and Address Organization Details Recorded Time Acute maxillary sinusitis 09363567 Active 2016 Alessandra paiz, [place] - [facility] 7 14:50:19 Low back pain 762082157 Active 2016 Alessandra [place]iz, [place] - [facility] 7 14:50:29 Chest pain 25789580 Active 2016 Alessandra Ford null, [place] - [facility] 7 14:50:41 Vitamin D deficiency 06627388 Active 2016 Aless[place], [place] - [facility] 7 14:51:18 Obstructive sleep apnea syndrome 36561797 Active 2016 Aless[place], [place] - [facility] 7 14:51:27 Snoring 18109587 Active 2016 Aless[place], [place] - [facility] 7 14:51:38 Fatigue 77995547 Active 2016 Louisa paiz, [place] - [facility] 7 15:55:42 Palpitations 41617794 Active 2016 Louisa paiz, [place] - [facility] 7 15:55:52 Headache 61567329 Active 2016 Louis[place] paiz, [place] - [facility] 7 15:55:59 Blood pressure above reference range 93927379 Active 2016 Chito Anabel [facility] 7 17:20:00 Edema of lower extremity 485261135 [facility] 17:32:02 [facility]8824390 [facility] 1 11:06:57 Hyperlipidemia 22134300 [facility] 1 16:57:12 Problem Notes None recorded. Medical Equipment None Reported. Allergies Allergen ID Allergen Name Allergen Category Reaction Reaction Severity Criticality Documentation Date Start Date Code Code System Note Provider Name and Address Organization Details Recorded Time 5431 Substance with sulfonami de structure and antibacte rial mechanism of action (substanc e) medicatio n Not available Not available Not available 08/14/2017 13327 8003 SNOMED Vahe Resendez [facility] 7 07:16:38 Medications Name Sig Start Date Stop [...] in Arterial blood by Pulse oximetry Systolic And Diastolic Provider Name and Address Organization Details Last Updated DateTime 3 165.1 cm 38.3 kg/m2 638899. 25 g 76 /min 99 % 99 % 127/75 mm[Hg] Ramila Lanier [facility] 3 15:06:27 Date Recorded Body height Body mass index (BMI) Body weight Heart rate Respiratory rate Oxygen saturation Oxygen saturation in Arterial blood by Pulse oximetry Body temperature Systolic And Diastolic Provider Name and Address Organization Details Last Updated DateTime 1 165.1 cm 35.4 kg/m2 05345.1 7 g 81 /min 18 /min 99 % 99 % 97.1 [degF] 108/78 mm[Hg] Krystal Tra [facility] 1 10:49:24 Date Recorded Body height Body mass index (BMI) Body weight Oxygen saturation Oxygen saturation in Arterial blood by Pulse oximetry Heart rate Systolic And Diastolic Provider Name and Address Organization Details Last Updated DateTime 3 165.1 cm 38.4 kg/m2 357035. 04 g 97 % 97 % 71 /min 114/80 mm[Hg] BALJINDER MARIO [facility] 3 11:13:33 Date Recorded Body height Body mass index (BMI) Body weight Body temperature Heart rate Oxygen saturation Oxygen saturation in Arterial blood by Pulse oximetry Systolic And Diastolic Provider Name and Address Organization Details Last Updated DateTime 1 165.1 cm 36.1 kg/m2 19012.5 4 g 97.4 [degF] 73 /min 100 % 100 % 116/78 mm[Hg] KARLIE CALLE [facility] 1 15:49:42 Date Recorded Body height Body mass index (BMI) Body weight Heart rate Oxygen saturation Oxygen saturation in Arterial blood by Pulse oximetry Systolic And Diastolic Provider Name and Address Organization Details Last Updated DateTime 3 165.1 cm 38.3 kg/m2 735911. 25 g 61 /min 99 % 99 % 104/76 mm[Hg] Isaura Handy [facility] 3 10:33:09 Social History Question Answer Notes LastModified by Abyz Details LastModified Time Tobacco Smoking Status Never Smoker Not Available [facility] 08/06/2020 03:30:42 What Is Your Level Of Caffeine Consumption? Occasional [id number] Information not available 08/06/2020 How Much Tobacco Do You Chew? None [id number] Information not available 08/06/2020 What Type Of Diet Are You Following? REGULAR [id number] Information not available 08/06/2020 Which Illicit Or Recreational Drugs Have You Used? No [id number] Information not available 08/06/2020 Live Alone Or With Others? With Others [email or web address] Information not available 08/17/2017 Marital Status Single [email or web address] Informatio n not available 08/17/2017 What Was The Date Of Your Most Recent Tobacco Screening? 01/27/2019 [id number] Information not available 08/06/2020 How Many Children Do You Have? 1 [id number] Information not available 08/06/2020 How Much Tobacco Do You Smoke? No [id number] Information not available 08/06/2020 General Stress Level Low Information not available 08/17/2017 How Many Years Have You Smoked Tobacco? 0 [id number] Information not available 08/06/2020 Sex: Unknown Functional Status Question Answer Note LastModified by Abyz Details LastModified Time What is your level of alcohol consumption? None [id number] Information not available 08/06/2020 Do you or have you ever used smokeless tobacco? Never used smokeless tobacco [id number] Information not available 08/06/2020 What is your occupation? [employer] [email or web address] Information not available 08/17/2017 Do you or have you ever used e-cigarettes or vape? Never used electronic cigarettes [id number] Information not available 08/06/2020 What is your exercise level? None [id number] Information not available 08/06/2020 Mental Status None [...] available 2016 07:16:28 Maternal Grandmother Heart disease [email or web address] Not available 2016 17:23:47 Mother Heart disease mother with no CAD; cardio myopat hy at age 43; Matern al grandm other' s sister with cardio myopat hy. Not available 08/17/2017 17:25:34 Mother Myocardial infarction 45 [email or web address] Not available 11/26 14:26:20 Mother Hypertensive disorder [email or web address] Not available 2016 16:01:24 Mother Heart failure [email or web address] Not available 2016 16:01:49 Maternal Uncle Diabetes mellitus [email or web address] Not available 2016 16:00:41 Maternal Uncle Hypertensive disorder [email or web address] Not available 2016 16:01:36 Maternal Uncle Cerebrovascu lar accident [email or web address] Not available 16:02:06 Paternal Grandmother Hypertensive disorder [email or web address] Not available 2016 16:01:29 Medical History Condition Response Hypertension Y Sleep Apnea Y Gynecological HistoryNo gynecological history recorded. Obstetrics History GPAL:G 0 P 0 0 0 0 Past Encounters Encounter ID Performer Location Encounter Start Date Encounter Closed Date Diagnosis/Indication Diagnosis SNOMED-CT Code Diagnosis ICD10 Code Diagnosis IMO Codes Diagnosis Note [id number] Chito Little MD [place] OFFICE [address] [place] [address] 08/17/2017 15:19:25 08/18/2017 09:47:10 Palpitations 33131369 R00.2 Infrequent but related to chest pain on occasion. 24 Hr Holter. Obtain TSH, BMP, Mg. Chest pain 04746933 R07. 9 Patient presents with chest pain with atypical features with exertional dyspnea which can be an anginal equivalent . Given the history, exam findings and high cardiac risk factors including family history with mother with hypertroph ic cardiomyop athy diagnosed at age 43, I feel additional investigat ion is warranted. I have made arrangemen ts in the near future for an exercise stress echocardio gram to evaluate for any ischemia, structural heart disease, or exercise induced arrythmia. The procedure was discussed with the patient, and risks, benefits, and alternativ e options were explained. Appropriat e labwork has not been performed recently, therefore I have made arrangemen ts for further testing: FLP, BMP, Mg, TSH. I have asked the patient to curtail exercise and activities until our investigat ion is complete. I have made no adjustment s to the present medical regimen. Obstructiv e sleep apnea syndrome 31259271 G47.33 Pt has CHRISTINA and not using CPAP. Discussed in length importance of using CPAP and patient will retry. Blood pres sure above reference range 35170949 R03.0 Blood pressure is elevated at home per patient report. Normal BP in office today. Will keep close follow up, and consider medication change if blood pressure is still elevated. BP diary. Edema of l ower extremity 218960102 R60.0 Occasional bilateral pedal edema, absent at present. Low sodium diet, 2gm/day. [id number] MD Patrice Dalal Office [address] [facility] [address] [place] [address] 11/26/2017 12:22:03 11/26/2017 14:36:25 Chest pain 08408021 R07.9 Resolved. Had SE 09/07/17 : Negative stress echo for ischemia. Has family history of premature [place]. Needs to keep LDL less than 70-100, and HDL more than 40. Had LDL 116 09/07/17. Not using statin since may want another child. 20 lb. weight loss recommende d over the next 2 months. Increase exercise. Palpitations 61091516 R0 0.2 Resolved. Holter Monitor 09/07/17 : Unremarkab le Holter. No PAC's. No PVC's. NSR and sinus tachycardi a. Symptoms of chest pain associated with normal sinus rhythm. Obtained TSH, BMP, Mg (all normal 09/2017). Obstructiv e sleep apnea syndrome 22541626 G47.33 Pt has CHRISTINA and not using CPAP. Discussed in length importance of using CPAP and patient will retry. Blood pres sure above reference range 40554592 R03.0 Blood pressure is elevated at home per patient report on occasion. Normal BP in office today and last visit. Will keep close follow up, and consider medication change if blood pressure is still elevated. BP diary. Edema of l ower extremity 133802678 R60.0 Occasional bilateral pedal edema, absent at present. Low sodium diet, 2gm/day. [id number] Rigo Ibanez MD [place] OFF[facility] [place] [address] 07/29/2018 11:11:29 07/29/2018 12:17:41 Chest pain 21934026 R07.9 Resolved. Had SE 09/07/17 : Negative stress echo for ischemia. Has family history of premature [place]. Needs to keep LDL less than 70-100, and HDL more than 40. Had LDL 116 09/07/17. Not using statin since may want another child. 20 lb. weight loss recommende d over the next 2 months. Increase exercise. Palpitations 96902293 R0 0.2 Resolved. Holter Monitor 09/07/17 : Unremarkab le Holter. No PAC's. No PVC's. NSR and sinus tachycardi a. Symptoms of chest pain associated with normal sinus rhythm. Obtained TSH, BMP, Mg (all normal 09/2017). Obstructiv e sleep apnea syndrome 00911019 G47.33 Pt has CHRISTINA and not using CPAP. Discussed in length importance of using CPAP and patient will retry. Will order home sleep study. Blood pres sure above reference range 24844383 R03.0 Blood pressure is elevated at home per patient report on occasion. Normal BP in office today and last visit. Will keep close follow up, and consider medication change if blood pressure is still elevated. BP diary. Edema of l ower extremity 597909587 R60.0 Occasional bilateral pedal edema, absent at present. Low sodium diet, 2gm/day. [id number] Rigo Ibanez MD [place] OFF[facility] [place] [address] 01/27/2019 10:13:07 01/27/2019 11:26:47 Chest pain 93703156 R07.9 Resolved.H ad SE 09/07/17 : Negative stress echo for ischemia Palpitations 23463671 R0 0.2 Resolved. Holter Monitor 09/07/17 : Unremarkab le Holter. No PAC's. No PVC's. NSR and sinus tachycardi a. Symptoms of chest pain associated with normal sinus rhythm. Obtained TSH, BMP, Mg (all normal 09/2017). Obstructiv e sleep apnea syndrome 89027672 G47.33 Pt has CHRISTINA and not using CPAP. Discussed in length importance of using CPAP and patient will retry. Will order home sleep study. Blood pres sure above reference range 75892103 R03.0 Well controlled . Edema of l ower extremity 747917336 R60.0 Occasional bilateral pedal edema, absent at present. Low sodium diet, 2gm/day. [id number] MD Patrice Arenas Office [address] [facility] [address] [place] [address] 12/14/2019 15:26:13 12/14/2019 16:05:59 Chest pain 41120946 R07.9 Resolved.H ad SE 09/07/17 : Negative stress echo for ischemia Palpitations 63277196 R0 0.2 Resolved. Holter Monitor 09/07/17 : Unremarkab le Holter. No PAC's. No PVC's. NSR and sinus tachycardi a. Symptoms of chest pain associated with normal sinus rhythm. Obtained TSH, BMP, Mg (all normal 09/2017). Obstructiv e sleep apnea syndrome 38989060 G47.33 Pt has CHRISTINA and not using CPAP. Discussed in length importance of using CPAP and patient will retry. Will order home sleep study. Blood pres sure above reference range 22158156 R03.0 Well controlled . Edema of l ower extremity 061272462 R60.0 Occasional bilateral pedal edema, absent at present. Low sodium diet, 2gm/day. Systolic murmur 53944537 R01.1 Noted on exam today. Likely physiologi c with . Had echo last year with possible mitral prolapse but otherwise no significan t valvular disease.Sh e has mild dyspnea. Will consider repeat echo if symptoms worsen. WIll see pt in follow up before her scheduled delivery in May. Dyspnea on exertion 6084 5006 R06.09 [id number] MD Patrice Arenas Office [address] [place] [address] 04/03/2020 15:39:01 04/03/2020 16:18:51 Systolic murmur 12565321 R01.1 Noted on exam today. Likely physiologi c with . echo with possible mitral prolapse but otherwise no significan t valvular disease.Sh e has stable dyspnea associate with Chest pain 94921286 R07. 9 Resolved.H ad SE 09/07/17 : Negative stress echo for ischemia Palpitations 62634625 R0 0.2 Resolved. Holter Monitor 09/07/17 : Unremarkab le Holter. No PAC's. No PVC's. NSR and sinus tachycardi a. Symptoms of chest pain associated with normal sinus rhythm. Obtained TSH, BMP, Mg (all normal 09/2017). Obstructiv e sleep apnea syndrome 64210312 G47.33 Pt has CHRISTINA and not using CPAP. Discussed in length importance of using CPAP and patient will retry. Will order home sleep study. Blood pres sure above reference range 82092309 R03.0 Well controlled . Edema of l ower extremity 472327236 R60.0 Occasional bilateral pedal edema, absent at present. Low sodium diet, 2gm/day. Dyspnea on exertion 6084 5006 R06.09 Family his tory of Cardiomyopathy 153728533 Z82.49 Echo last year with no hypertroph y. Repeat echo in 5 years. Consider genitic testing [id number] Rigo Ibanez MD [place] [facility] [address] [place] [address] 10/15/2020 16:15:07 10/15/2020 17:38:11 Systolic murmur 48805613 R01.1 Likely physiologi c with . echo with possible mitral prolapse but otherwise no significan t valvular disease.Sh e has stable dyspnea associate with Chest pain 95446499 R07. 9 ER visit Obta in stress Echo Had SE 09/07/17 : Negative stress echo for ischemia Palpitations 34608703 R0 0.2 Resolved. Holter Monitor 09/07/17 : Unremarkab le Holter. No PAC's. No PVC's. NSR and sinus tachycardi a. Symptoms of chest pain associated with normal sinus rhythm. Obtained TSH, BMP, Mg (all normal 09/2017). Family his tory of Cardiomyopathy 355812503 Z82.49 Echo last year with no hypertroph y. Repeat echo in 5 years. Consider genitic testing Obstructiv e sleep apnea syndrome 13231663 G47.33 Pt has CHRISTINA and not using CPAP. Discussed in length importance of using CPAP and patient will retry. Edema of l ower extremity 608094782 R60.0 Occasional bilateral pedal edema, absent at present. Low sodium diet, 2gm/day. Dyspnea on exertion 6084 5006 R06.09 [id number] Chito Little MD [place] [facility] [address] [place] [address] 11/20/2020 10:42:05 11/20/2020 11:20:25 Systolic murmur 36722717 R01.1 Likely physiologi c with previously .Previousl y had echo with possible mitral prolapse but otherwise no significan t valvular disease. No MVP on echo in last 2 years since 10/2018. Chest pain 16989619 R07. 9 Atypical, resolved. [facility] ER visit 10/13/20 for upper central chest pressure. Had stress echo 11/14/20: Negative stress echo for ischemia, mild exercise impairment . Had ECHO done in 10/14/18 showed normal global systolic function , EF 60-65% , mild tricuspid regurgitat ion. Sinus bradycardi a. 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 Consider GI evaluation per PCP for possible GERD. Palpitations 00385459 R0 0.2 Resolved. Holter Monitor 09/07/17 : Unremarkab le Holter. No PAC's. No PVC's. NSR and sinus tachycardi a. Symptoms of chest pain associated with normal sinus rhythm. Obtained TSH, BMP, Mg (all normal 09/2017). Family his tory of Cardiomyopathy 569712674 Z82.49 Echo recently with no hypertroph y. Repeat echo in 2 years. Consider genetic testing. Had stress echo 11/14/20: Negative stress echo for ischemia, mild exercise impairment . Had ECHO done in 10/14/18 showed normal global systolic function , EF 60-65% , mild tricuspid regurgitat ion. Sinus bradycardi a . Obtain FLP. Obstructiv e sleep apnea syndrome 68841753 G47.33 Pt has CHRISTINA and not using CPAP. Discussed in length importance of using CPAP and patient will retry pending receipt of new masks/stra ps. Follows with [facility] sleep clinic. Edema of l ower extremity 216916455 R60.0 Occasional bilateral pedal edema, absent at present. Low sodium diet, 2gm/day. Dyspnea on exertion 6084 5006 R06.09 Improved. Had stress echo 11/14/20: Negative stress echo for ischemia, mild exercise impairment . Had ECHO done in 10/14/18 showed normal global systolic function , EF 60-65% , mild tricuspid regurgitat ion. Sinus bradycardi a. Increase walking. Obesity 224886224 E66.9 20 lb. weight loss recommende d over the next 2 months. [id number] Chito Little MD [place] [facility] [address] [place] [address] 03/12/2021 15:37:27 03/12/2021 17:17:03 Systolic murmur 30880976 R01.1 Likely physiologi c with previously .Previousl y had echo with possible mitral prolapse but otherwise no significan t valvular disease. No MVP on echo in last 2 years since 10/2018. Chest pain 46430966 R07. 9 Atypical, resolved. [facility] ER visit 10/13/20 for upper central chest pressure. Had stress echo 11/14/20: Negative stress echo for ischemia, mild exercise impairment . Had ECHO done in 10/14/18 showed normal global systolic function , EF 60-65% , mild tricuspid regurgitat ion. Sinus bradycardi a. 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 Consider GI evaluation per PCP for possible GERD. Palpitations 53808395 R0 0.2 Resolved. Holter Monitor 09/07/17 : Unremarkab le Holter. No PAC's. No PVC's. NSR and sinus tachycardi a. Symptoms of chest pain associated with normal sinus rhythm. Obtained TSH, BMP, Mg (all normal 09/2017). Obtain labs with PCP in 1-2 weeks. Family his tory of Cardiomyopathy 132178746 Z82.49 Echo recently with no hypertroph y. [...] for LVH. Obstructiv e sleep apnea syndrome 31940041 G47.33 Pt has CHRISTINA and not using CPAP. Discussed in length importance of using CPAP and patient will retry pending receipt of new masks/stra ps. Follows with [facility] sleep clinic and needs f/u for new CPAP equipment. Edema of l ower extremity 622975062 R60.0 Improved. Occasional bilateral pedal edema, absent [...] ion. Sinus bradycardi a. Increase walking. Obesity 686170126 E66.9 20 lb. weight loss recommende d over the next 2 months. Hyperlipidemia 86966367 E78.5 Had 03/04/21 LIPID: TC 173, HDL 43, TG 61, LDL 115 Needs to keep LDL less than 70-100, and HDL more than 40. Increase walking. Reduce fatty red meat and egg yolks. Given age and child-bear ing potential, avoiding statin at present and will work with dietary therapy. Repeat FLP in 6 mo. [id number] MD Patrice Calderón Office [address] [facility] [address] [facility] [place] [address] 10/14/2022 14:41:04 10/14/2022 15:34:14 Systolic murmur 38994496 R01.1 Likely physiologi c with previously .Previousl y had echo with possible mitral prolapse but otherwise no significan t valvular disease. No MVP on echo in last 2 years since 10/2018. Chest pain 82414156 R07. 9 Atypical, resolved. [facility] ER visit 10/13/20 for upper central chest pressure. Had stress echo 11/14/20: Negative stress echo for ischemia, mild exercise impairment . Had ECHO done in 10/14/18 showed normal global systolic function , EF 60-65% , mild tricuspid regurgitat ion. Sinus bradycardi a. 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 Consider GI evaluation per PCP for possible GERD. Palpitations 43020128 R0 0.2 Resolved. Holter Monitor 09/07/17 : Unremarkab le Holter. No PAC's. No PVC's. NSR and sinus tachycardi a. Symptoms of chest pain associated with normal sinus rhythm. Obtained TSH, BMP, Mg (all normal 09/2017). Obtain labs with PCP in 1-2 weeks. Family his tory of Cardiomyopathy 669547299 Z82.49 Echo recently with no hypertroph y. [...] for LVH. Obstructiv e sleep apnea syndrome 77890324 G47.33 Pt has CHRISTINA and not using CPAP. Discussed in length importance of using CPAP and patient will retry pending receipt of new masks/stra ps. Follows with [facility] sleep clinic and needs f/u for new CPAP equipment. Edema of l ower extremity 814458341 R60.0 Improved. Occasional bilateral pedal edema, absent [...] ion. Sinus bradycardi a. Increase walking. Obesity 131965057 E66.9 20 lb. weight loss recommende d over the next 2 months. Hyperlipidemia 96946301 E78.5 Had 03/04/21 LIPID: TC 173, HDL 43, TG 61, LDL 115 Needs to keep LDL less than 70-100, and HDL more than 40. Increase walking. Reduce fatty red meat and egg yolks. Given age and child-bear ing potential, avoiding statin at present and will work with dietary therapy. Repeat FLP in 6 mo. [id number] Riog Ibanez MD [place] [facility] [address] [place] [address] 01/12/2023 10:45:51 01/12/2023 11:53:26 Systolic murmur 82606641 R01.1 Likely physiologi c with previously .Previousl y had echo with possible mitral prolapse but otherwise no significan t valvular disease. No MVP on echo in last 2 years since 10/2018. Chest pain 38168990 R07. 9 Atypical, resolved. [facility] ER visit 10/13/20 for upper central chest pressure. Had stress echo 11/14/20: Negative stress echo for ischemia, mild exercise impairment . Had ECHO done in 10/14/18 showed normal global systolic function , EF 60-65% , mild tricuspid regurgitat ion. Sinus bradycardi a. 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 Consider GI evaluation per PCP for possible GERD. Palpitations [id number] R0 0.2 Resolved. Holter Monitor 09/07/17 : Unremarkab le Holter. No PAC's. No PVC's. NSR and sinus tachycardi a. Symptoms of chest pain associated with normal sinus rhythm. Obtained TSH, BMP, Mg (all normal 09/2017). Obtain labs with PCP in 1-2 weeks. Family his tory of Cardiomyopathy [id number] Z82.49 Echo recently with no hypertroph y. [...] for LVH. Obstructiv e sleep apnea syndrome [id number] G47.33 Pt has CHRISTINA and not using CPAP. Discussed in length importance of using CPAP and patient will retry pending receipt of new masks/stra ps. Follows with [facility] and needs f/u for new CPAP equipment. Edema of l ower extremity [id number] R60.0 Improved. Occasional bilateral pedal edema, absent at present. Low sodium diet, 2gm/day. Needs CPAP for CHRISTINA per [facility] sleep clinic. Dyspnea on exertion 6084 5006 R06.09 will repeat Echo Had stress echo 11/14/20: Negative stress echo for ischemia, mild exercise impairment . Had ECHO done in 10/14/18 showed normal global systolic function , EF 60-65% , mild tricuspid regurgitat ion. Sinus bradycardi a. Increase walking. Obesity 425283182 E66.9 20 lb. weight loss recommende d over the next 2 months. Hyperlipidemia 98052220 E78.5 Had 03/04/21 LIPID: TC 173, HDL 43, TG 61, LDL 115 Needs to keep LDL less than 70-100, and HDL more than 40. Increase walking. Reduce fatty red meat and egg yolks. Given age and child-bear ing potential, avoiding statin at present and will work with dietary therapy. Repeat FLP [id number] Rigo Ibanez MD [place] [facility] [address] [place] [address] 05/01/2023 09:57:33 05/01/2023 10:48:06 Systolic murmur 39971932 R01.1 Likely physiologi c with previously .Previousl y had echo with possible mitral prolapse but otherwise no significan t valvular disease. No MVP on echo in last 2 years since 10/2018. Chest pain 65967110 R07. 9 Atypical, resolved. [facility] ER visit 10/13/20 for upper central chest pressure. Had stress echo 11/14/20: Negative stress echo for ischemia, mild exercise impairment . Had ECHO done in 10/14/18 showed normal global systolic function , EF 60-65% , mild tricuspid regurgitat ion. Sinus bradycardi a. 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 Consider GI evaluation per PCP for possible GERD. Palpitations 58796406 R0 0.2 Resolved. Holter Monitor 09/07/17 : Unremarkab le Holter. No PAC's. No PVC's. NSR and sinus tachycardi a. Symptoms of chest pain associated with normal sinus rhythm. Obtained TSH, BMP, Mg (all normal 09/2017). Obtain labs with PCP in 1-2 weeks. Family his tory of Cardiomyopathy [id number] Z82.49 Echo recently with no hypertroph y. [...] for LVH. Obstructiv e sleep apnea syndrome 82943700 G47.33 Pt has CHRISTINA and not using CPAP. Discussed in length importance of using CPAP and patient will retry pending receipt of new masks/stra ps. Follows with [facility] sleep clinic and needs f/u for new CPAP equipment. Edema of l ower extremity [id number] R60.0 Resolved Occasional bilateral pedal edema, absent at present. Low sodium diet, 2gm/day. Needs CPAP for CHRISTINA per [facility] sleep clinic. Dyspnea on exertion 6084 5006 R06.09 resolved Had stress echo 11/14/20: Negative stress echo for ischemia, mild exercise impairment . Had ECHO done in 10/14/18 showed normal global systolic function , EF 60-65% , mild tricuspid regurgitat ion. Sinus bradycardi a. Increase walking. Obesity 080120187 E66.9 20 lb. weight loss recommende d over the next 2 months. Hyperlipidemia 47071734 E78.5 Had 03/04/21 LIPID: TC 173, HDL 43, TG 61, LDL 115 Needs to keep LDL less than 70-100, and HDL more than 40. Increase walking. Reduce fatty red meat and egg yolks. Given age and child-bear ing potential, avoiding statin at present and will work with dietary therapy. Repeat FLP Health Concerns Section Related Observation LastModified by Organization Detai ls LastModified Time None Recorded Concern Status LastModified by Organization Details LastModified Time None Recorded Advance Directives Directive None Recorded Payers Insurance Date Sequence Insurance Name Policy Number Policy Snyder Covered Member ID Snyder Member ID Guarantor Name 11/10/2019 1 [employer] [id number] Bert Francois [id number] Yenni Francois 10/15/2020 2 [place] DEPARTMENT [place]ID Yenni Francois [id number] Yenni Francois 10/15/2020 2 [facility] PRIOR TO 04/03/2021 (MEDICAID REPLACEMENT - HMO) Yenni Francois [id number] Yenni Francois 10/15/2020 2 [facility] PRIOR TO 2021 (MEDICAID REPLACEMENT - HMO) Yenni Francois [id number] Yenni Francois 04/28/2023 1 [facility] (MEDICAID HMO) [id number] Yenni Francois [id number] Yenni Francois Notes Date Note Type Note Provider Name and Address Organization Details Recorded Time 11/20/2020 text/html 11/20/20 CC: chest pain 25 year-old -[place] woman with h/o CHRISTINA (awaiting CPAP mask, [facility]), obesity, GERD, family history with mother with hypertrophic cardiomyopathy diagnosed at age 43 and mother with premature [place] at 45, is here for follow. Had [place] ER visit 10/13/20 for upper [...] RBC 4.65 HGB 11.9 HCT 35.3 PLT 1456910/15/17 : MG 2.: Na 138 ,K 3.9 [...] Radiographic follow up resolution is recommened XENIA Barajas - [facility] 11/20/2020 11:20:22 03/12/2021 text/html 03/12/21 CC: chest pain 26 year-old -[place] woman with h/o CHRISTINA (awaiting CPAP mask, [facility]), obesity, GERD, family history with mother with hypertrophic cardiomyopathy diagnosed at age 43 and mother with premature [place] at 45, seasonal allergies, anemia, is here for follow. She was admitted to [facility]. 02/19/21-02/22/21 for pneumonia, COVID-19 negative, with resolution of cough but persistent bilateral lower back pain. She had follow-up with PCP. She has not been vaccinated for COVID-19. Had [place] ER visit 10/13/20 for upper central chest [...] not using CPAP, awaiting new mask with [facility] sleep clinic. She was in the ER [...] RBC 4.65 HGB 11.9 HCT 35.3 PLT 6567410/15/17 : MG 2.: Na 138 ,K 3.9 [...] Radiographic follow up resolution is recommened XENIA Barajas - [facility] 03/12/2021 17:17:01 10/14/2022 text/html 10/14/22CC : Cardiac follow up, dyspnea on [id number] year-old -[place] woman with h/o CHRISTINA ( on CPAP mask, [facility]), obesity, GERD, family history with mother with hypertrophic cardiomyopathy diagnosed at age 43 and mother with premature [place] at 45, seasonal allergies, anemia, is here [...] takes any statins. Previously:She was admitted to [place] [facility]. 02/19/21-02/22/21 for pneumonia, COVID-19 negative, with [...] not using CPAP, awaiting new mask with [facility] sleep clinic. She was in the ER [...] RBC 4.65 HGB 11.9 HCT 35.3 PLT 2634710/15/17 : MG 2.: Na 138 ,K 3.9 [...] up resolution is recommened Rigo Ibanez MD [address] [place], [address], [facility] 10/14/2022 15:28:26 01/12/2023 text/html 01/12/23CC : Cardiac follow up dyspnea on [id number] year-old -[place] woman with h/o CHRISTINA ( on CPAP mask, [facility]), obesity, GERD, family history with mother with hypertrophic cardiomyopathy diagnosed at age 43 and mother with premature [place] at 45, seasonal allergies, anemia, is here [...] takes any statins. Previously:She was admitted to [facility]. 02/19/21-02/22/21 for pneumonia, COVID-19 negative, with resolution of cough but persistent bilateral lower back pain. She had follow-up with PCP. She has not been vaccinated for COVID-19. Had [place] ER visit 10/13/20 for upper central chest [...] RBC 4.65 HGB 11.9 HCT 35.3 PLT 6807410/15/17 : MG 2.: Na 138 ,K 3.9 [...] Care 01/12/2023 11:32:53 05/01/2023 text/html 05/01/23CC : Cardiac follow up dyspnea on year-old -[place] woman with h/o CHRISTINA ( on CPAP mask, [facility]), obesity, GERD, family history with mother with hypertrophic cardiomyopathy diagnosed at age 43 and mother with premature [place] at 45, seasonal allergies, anemia, is here [...] resolved by itself. She was admitted to [facility]. 02/19/21-02/22/21 for pneumonia, COVID-19 negative, with resolution of cough but persistent bilateral lower back pain. She had follow-up with PCP. She has not been vaccinated for COVID-19. Had [place] ER visit 10/13/20 for upper central chest [...] not using CPAP, awaiting new mask with [facility] sleep clinic. She was in the ER [...] RBC 4.65 HGB 11.9 HCT 35.3 PLT 9095110/15/17 : MG 2.: Na 138 ,K 3.9 [...] pneumonia Radiographic follow up resolution is recommened LAKESHIA paiz [place] - [facility] 05/01/2023 10:47:13 OBGyn Episode No OBEpisode recorded.
[2025-07-26 13:42] LABS: Serum Creat 0.51
[2025-07-26 13:46] LABS: Total Protein Urine Random < 5 mg/dL
[2025-07-26 14:07] LABS: Creatinine Clearance Urine 155.4 ml/min (75-125); Total Volume 24 Hour Urine 550 ml
[2025-07-26 14:07] LABS: Total Protein Urine 24 Hr 27 mg/24hr (28-141); Total Volume 24 Hour Urine 550 ml
== END 2025-07-26 12:09 | disposition home or self-care (01) ==
LOC: ANHOBOP 12:19
PROVIDERS: PCP Physician Assistant Medical; Visit Provider Obstetrics & Gynecology
DX: O13.9 Gestational [pregnancy-induced] hypertension without significant proteinuria, unspecified trimester (principal); Z3A.00 Weeks of gestation of pregnancy not specified
CPT/HCPCS: 81050; 82575; 84156

== ENCOUNTER 2025-07-26 12:08 | Outpatient (RCR) | payer OTHER, SELFPAY ==
[2025-07-02 10:05] VITALS: BP 124/80; PULSE 71
[2025-07-16 18:16] VITALS: BP 129/86; PULSE 77
[2025-07-25 11:27] VITALS: BP 122/84; PULSE 77
[2025-07-25 11:28] LABS: Hematocrit 29.3 % (37.0-47.0); Hemoglobin 9.0 g/dL (12.0-15.0); Immature Granulocyte Percent A 0.4 % (0-0.5); Lymphocytes Absolute Auto 1.34 K/mm3 (0.9-3.2); Mean Corpuscular HGB Conc 30.7 g/dl (32-36); Mean Corpuscular Hemoglobin 22.1 pg (26-34); Mean Corpuscular Volume 72.0 fl (80-100); Nucleated Red Blood Cells Absolute Auto 0.000 K/mm3 (0.0-0.012); Nucleated Red Blood Cells Perc 0.0 % (0.0-0.2); Platelet Count Result 340 k/mm3 (150-375); Red Blood Count 4.07 M/mm3 (4.2-5.4); White Blood Count 9.7 K/mm3 (4.5-10.0)
[2025-07-25 11:39] LABS: Alanine Aminotransferase 10 U/L (6-35); Albumin Level 3.3 g/dL (3.5-5.1); Alkaline Phosphatase 112 U/L (38-126); Anion Gap 5 mmol/L (4-12); Aspartate Amino Transferase 18 U/L (14-36); Bilirubin,Total 0.2 mg/dL (0.2-1.3); Blood Urea Nitrogen 12 mg/dL (7-17); Calcium 8.5 mg/dL (8.4-10.2); Carbon Dioxide 22 mmol/L (22-30); Chloride 107 mmol/L (98-107); Estimated Glomerular Filt Rate > 60; Glucose 117 mg/dL (65-110); Potassium 3.9 mmol/L (3.4-5.0); Sodium 134 mmol/L (137-145); Total Protein 6.4 g/dL (6.3-8.2); Uric Acid 4.4 mg/dL (2.5-7.5)
[2025-07-25 12:10] LABS: Add Urine Microscopic? YES; Appearance Urine Turbid (Clear); Glucose Urine UA Trace mg/dL (Negative); Leukocyte Esterase Ur 1+ LEU/UL (Negative); Need Manual Microscopic Reviewed; Nitrate Urine Negative (Negative); Specific Grav Ur 1.041 (1.001-1.035)
[2025-07-25 12:42] LABS: Total Protein Urine Random < 5 mg/dL
--- NOTE | ~2025-07-26 | US_ITS ---
EXAMINATION: US OB BPP wo non-stress DATE: 07/16/2025 17:14 INDICATION: Gestational diabetes. Third trimester. TECHNIQUE: Real-time pelvic ultrasound was performed. COMPARISON: Ultrasound 12/26/2024 FINDINGS: There is a single living fetus in vertex presentation. The placenta is anterior. heart rate is 141 beats per minute (bpm). Biophysical profile performed by the technologist: breathing (30 sec sustained breathing in 30 minutes): 2 out of 2 movement (3 gross body movements in 30 minutes): 2 out of 2 tone (one episode of wduddzv-huorwsils-alwxwna limb movement): 2 out of 2 Amniotic fluid pocket (2 cm): 2 out of 2 Total score: 8 out of 8 IMPRESSION: 1. Single living fetus in vertex presentation. 2. Biophysical profile 8 out of 8. Reviewed, dictated and finalized at location E.
--- NOTE | ~2025-07-26 | US_ITS ---
EXAMINATION: US OB BPP wo non-stress DATE: 07/26/2025 13:02 INDICATION: Oligohydramnios and maternal gestational diabetes during third trimester . Assess biophysical profile and amniotic fluid index. TECHNIQUE: Real-time pelvic ultrasound was performed. The interpreting radiologist was not present for the study. COMPARISON: 07/25/2025 FINDINGS: There is a single living fetus in vertex presentation. The placenta is anterior and not low-lying. heart rate is 131 beats per minute (bpm). Normal amniotic fluid index of 10.4 cm (5th%-95%: 7.5-24.4 cm at 37 weeks estimated gestational age) Biophysical profile performed by the technologist: breathing (30 sec sustained breathing in 30 minutes): 2 out of 2 movement (3 gross body movements in 30 minutes): 2 out of 2 tone (one episode of inczpfd-rkqcywxyn-roydmvu limb movement): 2 out of 2 Amniotic fluid pocket (2 cm): 2 out of 2 Total score: 8 out of 8 IMPRESSION: 1. Single living fetus in vertex presentation with heart rate of 131 bpm. 2. Biophysical profile 8 out of 8. 3. Normal amniotic fluid index of 10.4 cm. Reviewed, dictated and finalized at location A.
--- NOTE | ~2025-07-26 | US_ITS ---
EXAMINATION: US OB BPP wo non-stress DATE: 07/25/2025 12:16 CDT INDICATION: Type 2 diabetes TECHNIQUE: Real-time transabdominal obstetric ultrasound. FINDINGS: Ultrasound dated 07/16/2025 There is a single living fetus in vertex presentation. The placenta is anterior without placenta previa. cardiac activity and movement is noted with a heart rate of 138 beats per minute. There is oligohydramnios. FARHAD measures 5.3 cm (normal range for gestational age 7.7-24.9 cm). Biophysical profile: breathin of 2 movement: 2 of 2 tone: 2 of 2 Amniotic flud pocket: 2 of 2 Total score: 8 of 8 IMPRESSION: 1. Single living intrauterine in vertex presentation. 2: Total biophysical profile score of 8/8. 3: Oligohydramnios. Reviewed, dictated and finalized at location O.
[2025-08-03 07:49] LABS: Ur Ttl Prot Creatinine Ratio < 0.02 mg/mg (0-0.20)
== END 2025-08-02 07:23 | disposition other institution (70) ==
LOC: ANHOBOP 12:08
PROVIDERS: PCP Physician Assistant Medical; Visit Provider Obstetrics & Gynecology
DX: O24.419 Gestational diabetes mellitus in pregnancy, unspecified control (principal); O99.891 Other specified diseases and conditions complicating pregnancy; M54.9 Dorsalgia, unspecified; Z3A.33 33 weeks gestation of pregnancy
CPT/HCPCS: 36415; 59025; 76819; 80053; 81001; 81050; 82570; 82575; 84156; 84550; 85025

== ENCOUNTER 2025-07-29 23:29 | Observation (INO) | payer OTHER, SELFPAY ==
--- OUTSIDE RECORDS SUMMARY | 2025-07-27 08:15 | XMS_ITS | Encounter Summary ---
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 Name Role Phone Unavailable Primary Care Provider Unavailabl e Reason for Visit * Reason Comments Non-stress Test Encounter Details Date Type Department Care Team (Latest Contact Info) Description 07/27/2025 8:15 AM CDT - 07/27/2025 11:59 PM CDT Hospital Encounter [facility] [address] [place] [id number] Didier Knox MD [address] [id number] Discharge Disposition: Home or Self Care Social History Tobacco Use Types Packs/Day Years [...] on file 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 Gender Identity Not on file Sexual Orientation Not on file documented as of this encounter Last Filed Vital Signs Vital Sign Reading Time Taken Comments Blood Pressure 117/81 07/27/2025 9:05 AM CDT Pulse 67 07/27/2025 9:05 AM CDT Temperature - - Respiratory Rate - - Oxygen Saturation - - Inhaled Oxygen Concentration - - Weight - - Height - - Body Mass Index - - documented in this encounter Medications at Time of Discharge maríaol HFA (PROVENTIL;VENTOLIN ;PROAIR) 108 (90 BASE) MCG/ACT inhalerIndications: Extrinsic asthma, unspecified ([facility]) Inhale 2 Puffs by mouth every 4 hours as needed for Shortness of Breath, Wheezing and Cough. 1 3 0 cetirizine (ZYRTEC) 10 MG tabletIndications:A llergic rhinitis Take 1 Tab by mouth at bedtime. 30 3 0 Continuous Glucose Sensor (Dexcom G7 Sensor) MISCIndications:Pre gnancy complicated by pre-existing type 2 diabetes in second trimester ([facility]) Use 1 applicator every 10 days 3 Each 2 5 fluticasone hfa 44 (FLOVENT HFA 44) 44 MCG/ACT inhalerIndications: Extrinsic asthma, unspecified ([facility]) Inhale 2 Puffs by mouth 2 times daily. 1 3 0 fluticasone propionate (FLUTICASONE PROPIONATE) 50 MCG/ACT nasal sprayIndications:Al lergic rhinitis [place] 2 Sprays into each nostril daily. 1 3 0 Glucagon (Baqsimi One Pack) 3 MG/DOSE POWD [place] 1 Each into the nose as needed For emergency use only 1 Each 5 insulin glargine (Lantus/Semglee) 100 units/mL penIndications:Pre- existing type 2 diabetes mellitus during in third trimester ([facility]) Prime needle with 2 units waste, then inject 26 units every morning and 26 units every night. Increase dose as directed due to increasing insulin requirements during . Max total daily dose of 100 units. 30 mL 5 5 insulin lispro (HumaLOG;ADMelog) 100 UNIT/ML penIndications:Pre- existing type 2 diabetes mellitus during in third trimester ([facility]) Prime needle with 2 units waste, then inject 18 units with breakfast, 18 units with lunch, and 18 units with dinner. Increase doses as directed due to increasing insulin requirements during . Max total daily dose of 100 units. 30 mL 5 5 insulin pen needle (Novofine) 32G X 6 MM MISCIndications:Typ e 2 diabetes mellitus in , first trimester ([facility]) 1 (one) Each by Injection route 4 times daily 100 Each 5 5 magnesium oxide (Mag-Ox) 400 MG tablet Take 1 (one) tablet by mouth once daily 30 tablet 5 5 olopatadine (PATADAY) 0.2 % ophthalmic solutionIndications :Other chronic allergic conjunctivitis 1 Drop daily. 2.5 mL 2 0 Vit-Fe Fumarate-FA ( vitamin) 28-0.8 MG tablet Take 1 (one) tablet by mouth once daily documented as of this encounter Progress Notes * Clarice Chavez RN - 07/27/2025 9:59 AM CDT Name: Yenni Francois Date of : 1995 Today's Date: 07/27/2025 37w1d NST RESULTS (GUTIERREZ) OBJECTIVE FINDINGS , Pulse: 67, , BP: 117/81 NST Indication(s): Diabetes Uterine Irritability: No Contractions: Irregular Frequency: x3 Duration (sec) Range: 40-60 Perceived Intensity: Mild OBJECTIVE FINDINGS Movement: Present Monitoring Mode: External Baseline: 130 BPM (intermittent/broken tracing at times due to movement and maternal habitus) Variability: Moderate Decelerations: None Accelerations: Yes OTHER INFORMATION Comments: [id number] Denies cramping, contractions, leakage of fluid, vaginal bleeding. Denies headache, blurred vision,and RUQ pain. Patient reports positive movement. Clarice Chavez RN documented in this encounter Procedure Notes * Didier Knox MD - 07/27/2025 9:43 AM CDT Non-Stress Test (NST) Yenni Francois [id number] 37w1d 07/27/2025 9:43 AM Indications: Diabetes mellitus Interpretation: Baseline: 130 beats/minute Moderate variability reactive Decelerations: none Contractions: none Duration > 20 minutes Impression: reactive/reassuring Recommendation: Follow-up testing as indicated Didier Knox MD 07/27/2025 9:43 AM documented in this encounter Plan of Treatment Upcoming Encounters Date Type Department Care Team (Late st Contact Info) Description 07/30/2025 7:30 AM CDT Hospital Encounter [facility] Maternal & Care [address] [place] [phone] 08/03/2025 8:15 AM CDT Hospital Encounter [facility] & Care [address] [place] [phone] 08/06/2025 7:30 AM 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 Appointment [facility] [address] [place] [phone] documented as of this encounter Visit Diagnoses Diagnosis complicated by pre-existing type 2 diabetes in second trimester ([facility])- Primary Severe obesity due to excess calories affecting in second trimester ([facility]) 36 weeks gestation of ([facility]) state, incidental Encounter for other screening follow-up ([facility]) complicated by pre-existing type 2 diabetes in second trimester ([facility])- Primary Severe obesity due to excess calories affecting in second trimester ([facility]) 36 weeks gestation of ([facility]) state, incidental Encounter for other screening follow-up ([facility]) complicated by pre-existing type 2 diabetes in second trimester ([facility])- Primary Severe obesity due to excess calories affecting in second trimester ([facility]) 36 weeks gestation of ([facility]) state, incidental Encounter for ultrasound to assess growth ([facility]) documented in this encounter
--- OUTSIDE RECORDS SUMMARY | 2025-07-29 23:35 | XMS_ITS | Encounter Summary ---
Author Organization [facility] Address [address] [place] [address] Care Team Providers Care Medical Insurance Clerk Name Role Phone Phillip Coker MD Primary Care Provider [phone] Antonio Baldwin Primary Care Provider [phone] Reason for Visit * Reason Onset Date Comments No Show 01/15/2022 I called patient and she states that she will be in attendance tomorrow for her next scheduled visit. 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
--- OUTSIDE RECORDS SUMMARY | 2025-07-29 23:35 | XMS_ITS | Data Portability ---
Author Organization [facility] OFFICE Address [address] [place] [id number] Assessment Encounter Date Assessment Date Assessment LastModified [...] current medications, and medical follow-up as noted. [email or web address] Not available 03/12/2021 17:08:25 01/12/2023 01/12/2023 Patient [...] By Organization Details Last Modified Time 11/20/2020 17905 When You Want to Lose Weight: Care Instructions [email or web address] Not available 11/20/2020 11:19:54 leg and ankle edema: care instructions Not available 11/20/2020 11:19:54 03/12/2021 [id number] When You Want to Lose Weight: Care Instructions [email or web address] Not available 03/12/2021 17:16:33 leg and ankle edema: care instructions [email or web address] Not available 03/12/2021 17:16:33 high cholesterol : care instructions [email or web address] Not available 03/12/2021 17:16:33 01/12/2023 54800 Exercise advised Low cholesterol diet advised Low sodium diet advised. [email or web address] Not available 01/12/2023 11:32:47 05/01/2023 [id number] Exercise advised Low cholesterol diet advised Low [...] 1 view No observ ation record ed. [email or web address] Not Available 11/14 15:45:34 11/14/19 21 10/13/2020 elect rocar diogr am No observ ation record ed. [email or web address] Not Available 2020 14:35:10 12/03/19 21 11/14/2020 stres s echoc ardio gram No observ ation record ed. [email or web address] Not Available 2020 12:04:27 03/13/20 21 03/12/2021 elect rocar diogr am No observ ation record ed. [email or web address] Not Available 03/13 15:21:32 10/15/19 23 10/14/2022 [...] Organization Details Recorded Time Acute maxillary sinusitis 15151365 Active 2016 Alessandra paiz, [place] - [facility] 7 14:50:19 Low back pain 798619307 Active 2016 [place], [place] - [facility] 7 14:50:29 Chest pain 50809286 Active 2016 Alessandra [place] null, [place] - [facility] 7 14:50:41 Vitamin D deficiency 51964153 Active 2016 [place] - [facility] 7 14:51:18 Obstructive sleep apnea syndrome 00127218 Active 2016 [place] - [facility] 7 14:51:27 Snoring 44966665 Active 2016 [place] - [facility] 7 14:51:38 Fatigue 52569977 Active 2016 [place], [place] - [facility] 7 15:55:42 Palpitations 47845524 Active 2016 [place] - [facility] 7 15:55:52 Headache 89528737 Active 2016 [place], [place] - [facility] 7 15:55:59 Blood pressure above reference range 15316091 Active 2016 Chito Anabel [facility] 7 17:20:00 Edema of lower extremity 774216394 [facility] 17:[facility]2559 [facility] 1 11:06:57 Hyperlipidemia 08514572 [facility] 1 16:57:12 Problem Notes None recorded. Medical Equipment None Reported. Allergies Allergen ID Allergen Name Allergen Category Reaction Reaction Severity Criticality Documentation Date Start Date Code Code System Note Provider Name and Address Organization Details Recorded Time 5431 Substance with sulfonami de structure and antibacte rial mechanism of action (substanc e) medicatio n Not available Not available Not available 08/14/2017 59733 8003 SNOMED Vahe Resendez [facility] 7 07:16:38 Medications Name Sig Start Date [...] Updated DateTime 3 165.1 cm 38.3 kg/m2 521378. 25 g 76 /min 99 % 99 % 127/75 mm[Hg] Ramila Lanier [facility] 3 15:06:27 Date Recorded Body height Body mass index (BMI) Body weight Heart rate Respiratory rate Oxygen saturation Oxygen saturation in Arterial blood by Pulse oximetry Body temperature Systolic And Diastolic Provider Name and Address Organization Details Last Updated DateTime 1 165.1 cm 35.4 kg/m2 24038.1 7 g 81 /min 18 /min 99 % 99 % 97.1 [degF] 108/78 mm[Hg] Krystal Tra [facility] 1 10:49:24 Date Recorded Body height Body mass index (BMI) Body weight Oxygen saturation Oxygen saturation in Arterial blood by Pulse oximetry Heart rate Systolic And Diastolic Provider Name and Address Organization Details Last Updated DateTime 3 165.1 cm 38.4 kg/m2 158356. 04 g 97 % 97 % 71 /min 114/80 mm[Hg] BALJINDER MARIO [facility] 3 11:13:33 Date Recorded Body height Body mass index (BMI) Body weight Body temperature Heart rate Oxygen saturation Oxygen saturation in Arterial blood by Pulse oximetry Systolic And Diastolic Provider Name and Address Organization Details Last Updated DateTime 1 165.1 cm 36.1 kg/m2 02017.5 4 g 97.4 [degF] 73 /min 100 % 100 % 116/78 mm[Hg] KARLIE CALLE [facility] 1 15:49:42 Date Recorded Body height Body mass index (BMI) Body weight Heart rate Oxygen saturation Oxygen saturation in Arterial blood by Pulse oximetry Systolic And Diastolic Provider Name and Address Organization Details Last Updated DateTime 3 165.1 cm 38.3 kg/m2 992916. 25 g 61 /min 99 % 99 % 104/76 mm[Hg] Isaura Handy [facility] 3 10:33:09 Social History Question Answer Notes LastModified by [employer] Details LastModified Time Tobacco Smoking Status Never Smoker Not Available [facility] 08/06/2020 03:30:42 What Is Your Level Of Caffeine Consumption? Occasional [id number] Information not available 08/06/2020 How Much Tobacco Do You Chew? None [id number] Information not available 08/06/2020 What Type Of Diet Are You Following? REGULAR [id number] Information not available 08/06/2020 Which Illicit Or Recreational Drugs Have You Used? No [id number] Information not available 08/06/2020 Live Alone Or With Others? With Others [email or web address] Information not available 08/17/2017 Marital Status Single [email or web address] Informatio n not available 08/17/2017 What Was The Date Of Your Most Recent Tobacco Screening? 01/27/2019 [id number] Information not available 08/06/2020 How Many Children Do You Have? 1 [id number] Information not available 08/06/2020 How Much Tobacco Do You Smoke? No [id number] Information not available 08/06/2020 General Stress Level Low Information not available 08/17/2017 How Many Years Have You Smoked Tobacco? 0 [id number] Information not available 08/06/2020 Sex: Unknown Functional Status Question Answer Note LastModified by [employer] Details LastModified Time What is your level of alcohol consumption? None [id number] Information not available 08/06/2020 Do you or have you ever used smokeless tobacco? Never used smokeless tobacco [id number] Information not available 08/06/2020 What is your occupation? [employer] [email or web address] Information not available 08/17/2017 Do you or have you ever used e-cigarettes or vape? Never used electronic cigarettes [id number] Information not available 08/06/2020 What is your exercise level? None [id number] Information not available 08/06/2020 Mental Status None [...] available 2016 07:16:28 Maternal Grandmother Heart disease [email or web address] Not available 2016 17:23:47 Mother Heart disease mother with no CAD; cardio myopat hy at age 43; Matern al grandm other' s sister with cardio myopat hy. [email or web address] Not available 08/17/2017 17:25:34 Mother Myocardial infarction 45 [email or web address] Not available 11/26 14:26:20 Mother Hypertensive disorder [email or web address] Not available 2016 16:01:24 Mother Heart failure [email or web address] Not available 2016 16:01:49 Maternal Uncle Diabetes mellitus [email or web address] Not available 2016 16:00:41 Maternal Uncle Hypertensive disorder Not available 2016 16:01:36 Maternal Uncle Cerebrovascu lar accident [email or web address] Not available 16:02:06 Paternal Grandmother Hypertensive disorder Not available 2016 16:01:29 Medical History Condition Response Sleep Apnea Y Hypertension Y Gynecological HistoryNo gynecological history recorded. Obstetrics History GPAL:G 0 P 0 0 0 0 Past Encounters Encounter ID Performer Location Encounter Start Date Encounter Closed Date Diagnosis/Indication Diagnosis SNOMED-CT Code Diagnosis ICD10 Code Diagnosis IMO Codes Diagnosis Note [id number] Chito Little MD [facility] OFFICE [address] [place] [address] 08/17/2017 15:19:25 08/18/2017 09:47:10 Palpitations 24465710 R00.2 Infrequent but related to chest pain on occasion. 24 Hr Holter. Obtain TSH, BMP, Mg. Chest pain 34057826 R07. 9 Patient presents with chest pain [...] medical regimen. Obstructiv e sleep apnea syndrome 51257577 G47.33 Pt has CHRISTINA and not using CPAP. Discussed in length importance of using CPAP and patient will retry. Blood pres sure above reference range 23060412 R03.0 Blood pressure is elevated at home per patient report. Normal BP in office today. Will keep close follow up, and consider medication change if blood pressure is still elevated. BP diary. Edema of l ower extremity 322584085 R60.0 Occasional bilateral pedal edema, absent at present. Low sodium diet, 2gm/day. [id number] MD Patrice Dalal Office [address] [facility] [address] [place] [address] 11/26/2017 12:22:03 11/26/2017 14:36:25 Chest pain 93227644 R07.9 Resolved. Had SE 09/07/17 : Negative stress echo for ischemia. Has family history of premature [place]. Needs to keep LDL less than 70-100, and HDL more than 40. Had LDL 116 09/07/17. Not using statin since may want another child. 20 lb. weight loss recommende d over the next 2 months. Increase exercise. Palpitations 06940299 R0 0.2 Resolved. Holter Monitor 09/07/17 : Unremarkab le Holter. No PAC's. No PVC's. NSR and sinus tachycardi a. Symptoms of chest pain associated with normal sinus rhythm. Obtained TSH, BMP, Mg (all normal 09/2017). Obstructiv e sleep apnea syndrome 78426020 G47.33 Pt has CHRISTINA and not using CPAP. Discussed in length importance of using CPAP and patient will retry. Blood pres sure above reference range 66009017 R03.0 Blood pressure is elevated at home per patient report on occasion. Normal BP in office today and last visit. Will keep close follow up, and consider medication change if blood pressure is still elevated. BP diary. Edema of l ower extremity 748941137 R60.0 Occasional bilateral pedal edema, absent at present. Low sodium diet, 2gm/day. [id number] Rigo Ibanez MD [facility] OFFICE [facility] [place] [address] 07/29/2018 11:11:29 07/29/2018 12:17:41 Chest pain 25774494 R07.9 Resolved. Had SE 09/07/17 : Negative stress echo for ischemia. Has family history of premature [place]. Needs to keep LDL less than 70-100, and HDL more than 40. Had LDL 116 09/07/17. Not using statin since may want another child. 20 lb. weight loss recommende d over the next 2 months. Increase exercise. Palpitations 01245589 R0 0.2 Resolved. Holter Monitor 09/07/17 : Unremarkab le Holter. No PAC's. No PVC's. NSR and sinus tachycardi a. Symptoms of chest pain associated with normal sinus rhythm. Obtained TSH, BMP, Mg (all normal 09/2017). Obstructiv e sleep apnea syndrome 08388510 G47.33 Pt has CHRISTINA and not using CPAP. Discussed in length importance of using CPAP and patient will retry. Will order home sleep study. Blood pres sure above reference range 87057286 R03.0 Blood pressure is elevated at home per patient report on occasion. Normal BP in office today and last visit. Will keep close follow up, and consider medication change if blood pressure is still elevated. BP diary. Edema of l ower extremity 797596413 R60.0 Occasional bilateral pedal edema, absent at present. Low sodium diet, 2gm/day. [id number] Rigo Ibanez MD [facility] OFF[facility] [place] [address] 01/27/2019 10:13:07 01/27/2019 11:26:47 Chest pain 74740778 R07.9 Resolved.H ad SE 09/07/17 : Negative stress echo for ischemia Palpitations 47550410 R0 0.2 Resolved. Holter Monitor 09/07/17 : Unremarkab le Holter. No PAC's. No PVC's. NSR and sinus tachycardi a. Symptoms of chest pain associated with normal sinus rhythm. Obtained TSH, BMP, Mg (all normal 09/2017). Obstructiv e sleep apnea syndrome 16759443 G47.33 Pt has CHRISTINA and not using CPAP. Discussed in length importance of using CPAP and patient will retry. Will order home sleep study. Blood pres sure above reference range 33281227 R03.0 Well controlled . Edema of l ower extremity 265273798 R60.0 Occasional bilateral pedal edema, absent at present. Low sodium diet, 2gm/day. [id number] MD Patrice Arenas Office [address] [facility] [address] [place] [address] 12/14/2019 15:26:13 12/14/2019 16:05:59 Chest pain 79411100 R07.9 Resolved.H ad SE 09/07/17 : Negative stress echo for ischemia Palpitations 43914126 R0 0.2 Resolved. Holter Monitor 09/07/17 : Unremarkab le Holter. No PAC's. No PVC's. NSR and sinus tachycardi a. Symptoms of chest pain associated with normal sinus rhythm. Obtained TSH, BMP, Mg (all normal 09/2017). Obstructiv e sleep apnea syndrome 39669980 G47.33 Pt has CHRISTINA and not using CPAP. Discussed in length importance of using CPAP and patient will retry. Will order home sleep study. Blood pres sure above reference range 67693349 R03.0 Well controlled . Edema of l ower extremity 547207306 R60.0 Occasional bilateral pedal edema, absent at present. Low sodium diet, 2gm/day. Systolic murmur 86344692 R01.1 Noted on exam today. Likely physiologi c with . Had echo last year with possible mitral prolapse but otherwise no significan t valvular disease.Sh e has mild dyspnea. Will consider repeat echo if symptoms worsen. WIll see pt in follow up before her scheduled delivery in May. Dyspnea on exertion 6084 5006 R06.09 [id number] MD Patrice Arenas Office [address] [place] [address] 04/03/2020 15:39:01 04/03/2020 16:18:51 Systolic murmur 98505616 R01.1 Noted on exam today. Likely physiologi c with . echo with possible mitral prolapse but otherwise no significan t valvular disease.Sh e has stable dyspnea associate with Chest pain 37693950 R07. 9 Resolved.H ad SE 09/07/17 : Negative stress echo for ischemia Palpitations 18761158 R0 0.2 Resolved. Holter Monitor 09/07/17 : Unremarkab le Holter. No PAC's. No PVC's. NSR and sinus tachycardi a. Symptoms of chest pain associated with normal sinus rhythm. Obtained TSH, BMP, Mg (all normal 09/2017). Obstructiv e sleep apnea syndrome 91557460 G47.33 Pt has CHRISTINA and not using CPAP. Discussed in length importance of using CPAP and patient will retry. Will order home sleep study. Blood pres sure above reference range 07770502 R03.0 Well controlled . Edema of l ower extremity 914315300 R60.0 Occasional bilateral pedal edema, absent at present. Low sodium diet, 2gm/day. Dyspnea on exertion 6084 5006 R06.09 Family his tory of Cardiomyopathy 259509815 Z82.49 Echo last year with no hypertroph y. Repeat echo in 5 years. Consider genitic testing [id number] Rigo Ibanez MD [facility] OFFICE [address] [place] [address] 10/15/2020 16:15:07 10/15/2020 17:38:11 Systolic murmur 50004862 R01.1 Likely physiologi c with . echo with possible mitral prolapse but otherwise no significan t valvular disease.Sh e has stable dyspnea associate with Chest pain 71404299 R07. 9 ER visit Obta in stress Echo Had SE 09/07/17 : Negative stress echo for ischemia Palpitations 51297673 R0 0.2 Resolved. Holter Monitor 09/07/17 : Unremarkab le Holter. No PAC's. No PVC's. NSR and sinus tachycardi a. Symptoms of chest pain associated with normal sinus rhythm. Obtained TSH, BMP, Mg (all normal 09/2017). Family his tory of Cardiomyopathy 583004385 Z82.49 Echo last year with no hypertroph y. Repeat echo in 5 years. Consider genitic testing Obstructiv e sleep apnea syndrome 58787036 G47.33 Pt has CHRISTINA and not using CPAP. Discussed in length importance of using CPAP and patient will retry. Edema of l ower extremity 985453283 R60.0 Occasional bilateral pedal edema, absent at present. Low sodium diet, 2gm/day. Dyspnea on exertion 6084 5006 R06.09 [id number] Chito Little MD [facility] OFFICE [address] [place] [address] 11/20/2020 10:42:05 11/20/2020 11:20:25 Systolic murmur 11312191 R01.1 Likely physiologi c with previously .Previousl y had echo with possible mitral prolapse but otherwise no significan t valvular disease. No MVP on echo in last 2 years since 10/2018. Chest pain 48603404 R07. 9 Atypical, resolved. [facility] ER visit 10/13/20 for upper central chest pressure. Had stress echo 11/14/20: Negative stress echo for ischemia, mild exercise impairment . Had ECHO done in 10/14/18 showed normal global systolic function , EF 60-65% , mild tricuspid regurgitat ion. Sinus bradycardi a. 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 Consider GI evaluation per PCP for possible GERD. Palpitations 54184004 R0 0.2 Resolved. Holter Monitor 09/07/17 : Unremarkab le Holter. No PAC's. No PVC's. NSR and sinus tachycardi a. Symptoms of chest pain associated with normal sinus rhythm. Obtained TSH, BMP, Mg (all normal 09/2017). Family his tory of Cardiomyopathy 373534065 Z82.49 Echo recently with no hypertroph y. Repeat echo in 2 years. Consider genetic testing. Had stress echo 11/14/20: Negative stress echo for ischemia, mild exercise impairment . Had ECHO done in 10/14/18 showed normal global systolic function , EF 60-65% , mild tricuspid regurgitat ion. Sinus bradycardi a . Obtain FLP. Obstructiv e sleep apnea syndrome 14660355 G47.33 Pt has CHRISTINA and not using CPAP. Discussed in length importance of using CPAP and patient will retry pending receipt of new masks/stra ps. Follows with [facility] sleep clinic. Edema of l ower extremity 785606390 R60.0 Occasional bilateral pedal edema, absent at present. Low sodium diet, 2gm/day. Dyspnea on exertion 6084 5006 R06.09 Improved. Had stress echo 11/14/20: Negative stress echo for ischemia, mild exercise impairment . Had ECHO done in 10/14/18 showed normal global systolic function , EF 60-65% , mild tricuspid regurgitat ion. Sinus bradycardi a. Increase walking. Obesity 748734425 E66.9 20 lb. weight loss recommende d over the next 2 months. [id number] Chito Little MD [facility] OFFICE [address] [place] [address] 03/12/2021 15:37:27 03/12/2021 17:17:03 Systolic murmur 85991702 R01.1 Likely physiologi c with previously .Previousl y had echo with possible mitral prolapse but otherwise no significan t valvular disease. No MVP on echo in last 2 years since 10/2018. Chest pain 85023463 R07. 9 Atypical, resolved. [facility] ER visit 10/13/20 for upper central chest pressure. Had stress echo 11/14/20: Negative stress echo for ischemia, mild exercise impairment . Had ECHO done in 10/14/18 showed normal global systolic function , EF 60-65% , mild tricuspid regurgitat ion. Sinus bradycardi a. 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 Consider GI evaluation per PCP for possible GERD. Palpitations 03966290 R0 0.2 Resolved. Holter Monitor 09/07/17 : Unremarkab le Holter. No PAC's. No PVC's. NSR and sinus tachycardi a. Symptoms of chest pain associated with normal sinus rhythm. Obtained TSH, BMP, Mg (all normal 09/2017). Obtain labs with PCP in 1-2 weeks. Family his tory of Cardiomyopathy 030184478 Z82.49 Echo recently with no hypertroph y. [...] for LVH. Obstructiv e sleep apnea syndrome 01406760 G47.33 Pt has CHRISTINA and not using CPAP. Discussed in length importance of using CPAP and patient will retry pending receipt of new masks/stra ps. Follows with [facility] sleep clinic and needs f/u for new CPAP equipment. Edema of l ower extremity 609160256 R60.0 Improved. Occasional bilateral pedal edema, absent [...] ion. Sinus bradycardi a. Increase walking. Obesity 606498454 E66.9 20 lb. weight loss recommende d over the next 2 months. Hyperlipidemia 41132084 E78.5 Had 03/04/21 LIPID: TC 173, HDL 43, TG 61, LDL 115 Needs to keep LDL less than 70-100, and HDL more than 40. Increase walking. Reduce fatty red meat and egg yolks. Given age and child-bear ing potential, avoiding statin at present and will work with dietary therapy. Repeat FLP in 6 mo. [id number] MD Patrice Calderón Office [address] [facility] [address] [facility] [place] [address] 10/14/2022 14:41:04 10/14/2022 15:34:14 Systolic murmur 96828294 R01.1 Likely physiologi c with previously .Previousl y had echo with possible mitral prolapse but otherwise no significan t valvular disease. No MVP on echo in last 2 years since 10/2018. Chest pain 34362901 R07. 9 Atypical, resolved. [facility] ER visit 10/13/20 for upper central chest pressure. Had stress echo 11/14/20: Negative stress echo for ischemia, mild exercise impairment . Had ECHO done in 10/14/18 showed normal global systolic function , EF 60-65% , mild tricuspid regurgitat ion. Sinus bradycardi a. 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 Consider GI evaluation per PCP for possible GERD. Palpitations 39527349 R0 0.2 Resolved. Holter Monitor 09/07/17 : Unremarkab le Holter. No PAC's. No PVC's. NSR and sinus tachycardi a. Symptoms of chest pain associated with normal sinus rhythm. Obtained TSH, BMP, Mg (all normal 09/2017). Obtain labs with PCP in 1-2 weeks. Family his tory of Cardiomyopathy 564055216 Z82.49 Echo recently with no hypertroph y. [...] for LVH. Obstructiv e sleep apnea syndrome 70723420 G47.33 Pt has CHRISTINA and not using CPAP. Discussed in length importance of using CPAP and patient will retry pending receipt of new masks/stra ps. Follows with [facility] sleep clinic and needs f/u for new CPAP equipment. Edema of l ower extremity 162705168 R60.0 Improved. Occasional bilateral pedal edema, absent [...] ion. Sinus bradycardi a. Increase walking. Obesity 077671404 E66.9 20 lb. weight loss recommende d over the next 2 months. Hyperlipidemia 20398406 E78.5 Had 03/04/21 LIPID: TC 173, HDL 43, TG 61, LDL 115 Needs to keep LDL less than 70-100, and HDL more than 40. Increase walking. Reduce fatty red meat and egg yolks. Given age and child-bear ing potential, avoiding statin at present and will work with dietary therapy. Repeat FLP in 6 mo. [id number] Rigo Ibanez MD [facility] [address] [place] [address] 01/12/2023 10:45:51 01/12/2023 11:53:26 Systolic murmur 08526017 R01.1 Likely physiologi c with previously .Previousl y had echo with possible mitral prolapse but otherwise no significan t valvular disease. No MVP on echo in last 2 years since 10/2018. Chest pain 30537701 R07. 9 Atypical, resolved. [facility] ER visit 10/13/20 for upper central chest pressure. Had stress echo 11/14/20: Negative stress echo for ischemia, mild exercise impairment . Had ECHO done in 10/14/18 showed normal global systolic function , EF 60-65% , mild tricuspid regurgitat ion. Sinus bradycardi a. 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 Consider GI evaluation per PCP for possible GERD. Palpitations 84389162 R0 0.2 Resolved. Holter Monitor 09/07/17 : Unremarkab le Holter. No PAC's. No PVC's. NSR and sinus tachycardi a. Symptoms of chest pain associated with normal sinus rhythm. Obtained TSH, BMP, Mg (all normal 09/2017). Obtain labs with PCP in 1-2 weeks. Family his tory of Cardiomyopathy 355028117 Z82.49 Echo recently with no hypertroph y. [...] for LVH. Obstructiv e sleep apnea syndrome 12327499 G47.33 Pt has CHRISTINA and not using CPAP. Discussed in length importance of using CPAP and patient will retry pending receipt of new masks/stra ps. Follows with [facility] sleep clinic and needs f/u for new CPAP equipment. Edema of l ower extremity 709587743 R60.0 Improved. Occasional bilateral pedal edema, absent [...] ion. Sinus bradycardi a. Increase walking. Obesity 964844047 E66.9 20 lb. weight loss recommende d over the next 2 months. Hyperlipidemia 59618619 E78.5 Had 03/04/21 LIPID: TC 173, HDL 43, TG 61, LDL 115 Needs to keep LDL less than 70-100, and HDL more than 40. Increase walking. Reduce fatty red meat and egg yolks. Given age and child-bear ing potential, avoiding statin at present and will work with dietary therapy. Repeat FLP [id number] Rigo Ibanez MD [facility] OFF[facility] [address] [place], [place] [address] 05/01/2023 09:57:33 05/01/2023 10:48:06 Systolic murmur [id number] R01.1 Likely physiologi c with previously .Previousl y had echo with possible mitral prolapse but otherwise no significan t valvular disease. No MVP on echo in last 2 years since 10/2018. Chest pain [id number] R07. 9 Atypical, resolved. [facility] ER visit 10/13/20 for upper central chest pressure. Had stress echo 11/14/20: Negative stress echo for ischemia, mild exercise impairment . Had ECHO done in 10/14/18 showed normal global systolic function , EF 60-65% , mild tricuspid regurgitat ion. Sinus bradycardi a. 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 Consider GI evaluation per PCP for possible GERD. Palpitations [id number] R0 0.2 Resolved. Holter Monitor 09/07/17 : Unremarkab le Holter. No PAC's. No PVC's. NSR and sinus tachycardi a. Symptoms of chest pain associated with normal sinus rhythm. Obtained TSH, BMP, Mg (all normal 09/2017). Obtain labs with PCP in 1-2 weeks. Family his tory of Cardiomyopathy [id number] Z82.49 Echo recently with no hypertroph y. [...] for LVH. Obstructiv e sleep apnea syndrome [id number] G47.33 Pt has CHRISTINA and not using CPAP. Discussed in length importance of using CPAP and patient will retry pending receipt of new masks/stra ps. Follows with [facility] sleep clinic and needs f/u for new CPAP equipment. Edema of l ower extremity [id number] R60.0 Resolved Occasional bilateral pedal edema, absent [...] ion. Sinus bradycardi a. Increase walking. Obesity 526090036 E66.9 20 lb. weight loss recommende d over the next 2 months. Hyperlipidemia 20425067 E78.5 Had 03/04/21 LIPID: TC 173, HDL [...] Member ID Guarantor Name 11/10/2019 1 [employer] [id number] Bert Francois [id number] Yenni Francois 10/15/2020 2 [place] [employer] Yenni Francois [id number] Yenni Francois 10/15/2020 2 [facility] PRIOR TO 04/03/2021 (MEDICAID REPLACEMENT - HMO) Yenni Francois [id number] Yenni Francois 10/15/2020 2 [facility] - [facility] PRIOR TO 2021 (MEDICAID REPLACEMENT - HMO) Yenni Francois [id number] Yenni Francois 04/28/2023 1 [facility] (MEDICAID HMO) [id number] Yenni Francois [id number] Yenni Francois Notes Date Note Type Note Provider Name and Address Organization Details Recorded Time 11/20/2020 text/html 11/20/20 CC: chest pain 25 year-old -[place] African woman with h/o CHRISTINA (awaiting CPAP mask, [facility] Sleep Clinic), obesity, GERD, family history with mother with hypertrophic cardiomyopathy diagnosed at age 43 and mother with premature [place] at 45, is here for follow. Had [...] RBC 4.65 HGB 11.9 HCT 35.3 PLT 2702710/15/17 : MG 2.: Na 138 ,K 3.9 [...] text/html 03/12/21 CC: chest pain 26 year-old -[place] African woman with h/o CHRISTINA (awaiting CPAP mask, [facility] Sleep [facility]), obesity, GERD, family history with mother with hypertrophic cardiomyopathy diagnosed at age 43 and mother with premature [place] at 45, seasonal allergies, anemia, is here for follow. She was admitted to [facility]. 02/19/21-02/22/21 for pneumonia, COVID-19 negative, with resolution of cough but persistent bilateral lower back pain. She had follow-up with PCP. She has not been vaccinated for COVID-19. Had [place] ER visit 10/13/20 for upper central chest [...] RBC 4.65 HGB 11.9 HCT 35.3 PLT 5811310/15/17 : MG 2.: Na 138 ,K 3.9 [...] 10/14/22CC : Cardiac follow up, dyspnea on [id number] year-old -[place] African woman with h/o CHRISTINA ( on CPAP mask, [facility]), obesity, GERD, family history with mother with hypertrophic cardiomyopathy diagnosed at age 43 and mother with premature [place] at 45, seasonal allergies, anemia, is here [...] takes any statins. Previously:She was admitted to [facility]. 02/19/21-02/22/21 for pneumonia, COVID-19 negative, with [...] RBC 4.65 HGB 11.9 HCT 35.3 PLT 4753310/15/17 : MG 2.: Na 138 ,K 3.9 [...] Radiographic follow up resolution is recommened Rigo Iabnez MD [address] [place], [address], [facility] 10/14/2022 15:28:26 01/12/2023 text/html 01/12/23CC : Cardiac follow up dyspnea on [id number] year-old -[place] woman with h/o CHRISTINA ( on CPAP mask, [facility] Sleep [facility]), obesity, GERD, family history with mother with hypertrophic cardiomyopathy diagnosed at age 43 and mother with premature [place] at 45, seasonal allergies, anemia, is here [...] takes any statins. Previously:She was admitted to [facility]. 02/19/21-02/22/21 for pneumonia, COVID-19 negative, with resolution of cough but persistent bilateral lower back pain. She had follow-up with PCP. She has not been vaccinated for COVID-19. Had [facility] ER visit 10/13/20 for upper central chest [...] RBC 4.65 HGB 11.9 HCT 35.3 PLT 0207510/15/17 : MG 2.: Na 138 ,K 3.9 [...] : Cardiac follow up dyspnea on year-old -[place] woman with h/o CHRISTINA ( on CPAP mask, [facility]), obesity, GERD, family history with mother with hypertrophic cardiomyopathy diagnosed at age 43 and mother with premature [place] at 45, seasonal allergies, anemia, is here [...] resolved by itself. She was admitted to [facility]. 02/19/21-02/22/21 for pneumonia, COVID-19 negative, with resolution of cough but persistent bilateral lower back pain. She had follow-up with PCP. She has not been vaccinated for COVID-19. Had [place] ER visit 10/13/20 for upper central chest [...] RBC 4.65 HGB 11.9 HCT 35.3 PLT 7005210/15/17 : MG 2.: Na 138 ,K 3.9 [...]
--- OUTSIDE RECORDS SUMMARY | 2025-07-29 23:35 | XMS_ITS | Clinical Summary ---
Author Organization [facility] Address Formerly [facility] [place] [address] Care Team Providers Care Applications System Analyst Name Role Phone MiloJoyce sarabia LANNY Primary Care Provider [phone] Allergies Active Allergy Reactions Criticality Noted Date [...] 87.5 kg (193 lb) 09/01/2016 11:58 AM PHOTONICS ENGINEERING TECHNOLOGIST Height 154.9 cm (5' 1) 09/01/2016 11:58 AM PHOTONICS ENGINEERING TECHNOLOGIST Body Mass Index 36.47 09/01/2016 11:58 AM PHOTONICS ENGINEERING TECHNOLOGIST Plan of Treatment Health Maintenance Due Date [...] complete this topic Insurance MEDICAID Care Teams Applications System Analyst Relationship Specialty Start Date End Date Joyce Pedraza NP [address] [place] [address] PCP - General NURSE PRACTITIONER 01/27/19
--- OUTSIDE RECORDS SUMMARY | 2025-07-29 23:35 | XMS_ITS | Encounter Summary ---
Author Organization [facility] Healthcare Address [address] [place] [address] Care Team Providers Care Park Recreation Manager Name Role Phone Antonio Baldwin Primary Care Provider [phone] Encounter Details Date Type Department Care Team (Late st Contact Info) Description 07/25/2025 Orders Only [facility] [address] [place] [address] Antonio Baldwin PA [address] [address] Social History Tobacco Use Types Packs/Day Years Used Date Smoking Tobacco: Never Smokeless Tobacco: Never Alcohol Use Standard Drinks/Week Comments Never 0 (1 standard drink = 0.6 oz pur e alcohol) PHQ-2 Answer Date Recorded PHQ-2 Total Score [...] money to get more. Never true 11/30/2024 AUDIT-C Answer Date Recorded Q1: How often do you have a drink containing alcohol? Never 06/13/2025 Q2: How many drinks containi ng alcohol do you have on a typical day when you are drinking? Patient does not drink Q3: How often do you have si x or more drinks on one occasion? Never 06/13/2025 Comments Yes Sex and Gender Information Value Date Recorded Sex Assigned at Not on file Legal Sex Female 11:27 PM RETAIL MARKETING SPECIALIST Gender Identity Female 08/08/2021 9:31 AM CDT Sexual Orientation Straight 08/08/2021 9: 31 AM CDT documented as of this encounter Plan of Treatment Not on file documented as of this encounter Procedures Procedure Name Priority Date/Time Associated Diagnosis Comments SCAN - RADIOLOGY/IMAGING 07/25/2025 documented in this encounter Results * SCAN - RADIOLOGY/IMAGING (07/25/2025) Anatomical Region Laterality Modality Other us Antonio BAPTISTE Final Result documented in this encounter Visit Diagnoses Not on filedocumented in this encounter Care Teams Park Recreation Manager Relationship Specialty Start Date End Date Antonio Baldwin PA [address] [facility] [facility] [address] [place] [address] [place] [address] PCP - General Family Medicine 07/01/22 documented as of this encounter
--- OUTSIDE RECORDS SUMMARY | 2025-07-29 23:35 | XMS_ITS | Encounter Summary ---
Author Organization [facility] Facility Care Team Providers Care Warehouse Record Clerk Name Role Phone Phillip Coker MD Primary Care Provider Antonio Baldwin Primary Care Provider [phone] Encounter Details Date Type Department Care Team (Latest Contact Info) Description 07/20/2017 Orders Only [facility] Provider, MD Pérez [address] [place] [address] Social History Tobacco Use Types Packs/Day Years Used Date Smoking Tobacco: Never Assessed Comments Unknown Sex and Gender Information Value Date Recorded Sex Assigned at Not on file Legal Sex Female 11:27 PM RETAIL MAINTENANCE TECHNICIAN Gender Identity Female 08/08/2021 9:31 AM [...] provider. Historical Provider [facility] MARTHA HRADING Final Result documented in this encounter Visit Diagnoses Not on filedocumented in this encounter Additional Health Concerns Infection Onset Date Last Indicated Resolved Time COVID: Suspected 09/01/2021 09/01/2021 09/02/2021 1:03 AM RETAIL MAINTENANCE TECHNICIAN COVID: Suspected 10/01/2021 10/01/2021 10/02/2021 4:52 AM RETAIL MAINTENANCE TECHNICIAN COVID19 10/01/2021 10/01/2021 10/15/2021 3:07 AM RETAIL MAINTENANCE TECHNICIAN COVID: Recovered Comment:Added based on recent COVID infection. 10/15/2021 10/20/2021 02/12/2022 3:05 AM C DT COVID: Suspected 12/11/2021 12/11/2021 12/12/2021 12:07 AM RETAIL MAINTENANCE TECHNICIAN COVID: Suspected 06/21/2023 06/21/2023 06/21/2023 3:30 PM CDT COVID: Suspected 06/21/2023 06/21/2023 06/21/2023 6:32 PM CDT documented as of this encounter Care Teams Warehouse Record Clerk Relationship Specialty Start Date End Date Phillip Coker MD PCP - General 12/30/18 06/30/22 Antonio Baldwin PA [address] [facility] [address] [address] PCP - General Family Medicine 07/01/22 documented as of this encounter
--- OUTSIDE RECORDS SUMMARY | 2025-07-29 23:35 | XMS_ITS | Encounter Summary ---
Author Organization [facility] Facility Care Team Providers Care Bundle Breaker Name Role Phone Phillip Coker MD Primary Care Provider [phone] Antonio Baldwin Primary Care Provider [phone] Encounter Details Date Type Department Care Team (Latest Contact Info) Description 10/28/2018 Orders Only [facility] ProviderPérez MD [address] [place] [address] Social History Tobacco Use Types Packs/Day Years Used Date Smoking Tobacco: Never Assessed Comments Unknown Sex and Gender Information Value Date Recorded Sex Assigned at Not on file Legal Sex Female 11:27 PM ROUTER TENDER Gender Identity Female 08/08/2021 9:31 AM CDT Sexual Orientation Straight 08/08/2021 9: 31 AM CDT documented as of this encounter Plan of Treatment Not on file documented as of this encounter Procedures Procedure Name Priority Date/Time Associated Diagnosis Comments CARDIOLOGY REPORT 10/28/2018 12: 00 AM ROUTER TENDER documented in this encounter Results * CARDIOLOGY REPORT (10/28/2018 12:00 AM ROUTER TENDER) Anatomical Region Laterality Modality Other Narrative 10/28/2018 12:00 AM ROUTER TENDER Ordered by an unspecified provider. Historical Provider [facility] MARTHA HARDING Final Result documented in this encounter Visit Diagnoses Not on filedocumented in this encounter Additional Health Concerns Infection Onset Date Last Indicated Resolved Time COVID: Suspected 09/01/2021 09/01/2021 09/02/2021 1:03 AM ROUTER TENDER COVID: Suspected 10/01/2021 10/01/2021 10/02/2021 4:52 AM ROUTER TENDER COVID19 10/01/2021 10/01/2021 10/15/2021 3:07 AM ROUTER TENDER COVID: Recovered Comment:Added based on recent COVID infection. 10/15/2021 10/20/2021 02/12/2022 3:05 AM C DT COVID: Suspected 12/11/2021 12/11/2021 12/12/2021 12:07 AM ROUTER TENDER COVID: Suspected 06/21/2023 06/21/2023 06/21/2023 3:30 PM CDT COVID: Suspected 06/21/2023 06/21/2023 06/21/2023 6:32 PM CDT documented as of this encounter Care Teams Bundle Breaker Relationship Specialty Start Date End Date Phillip Coker MD PCP - General 12/30/18 06/30/22 Antonio Baldwin PA [address] [facility] [address] [address] PCP - General Family Medicine 07/01/22 documented as of this encounter
--- OUTSIDE RECORDS SUMMARY | 2025-07-29 23:35 | XMS_ITS | Clinical Summary ---
Author Organization [facility] [address] [facility] Address [address] [place] [address] Care Team Providers Care Manager Sign Name Role Phone Antonio Baldwin Primary Care Provider [phone] Allergies Active Allergy Reactions Criticality Noted Date Comments Sulfa (Sulfonamide Antibiotics) Hives Medium 12/2018 Medications fluticasone propionate (FLONASE) 50 mcg/actuation nasal sprayIndications:S ubacute sinusitis, unspecified location Administer 2 sprays into each nostril daily for 10 days 1 each 06/21/20 23 Active Additional Information Patient taking differently:2 spray each nostrilAs needed, Reported on 07/24/2025 cetirizine (ZyrTEC) 10 mg tabletIndications: Seasonal allergic rhinitis due to pollen Take 1 tablet (10 mg total) by mouth daily as needed for allergies or rhinitis 10 tablet 1 01/21/20 24 Active atogepant (Qulipta) 60 mg tabletIndications: Intractable migraine with aura without status migrainosus Take 60 mg by mouth daily 30 tablet 2 01/21/20 24 Active Additional Information Patient not taking.Reported on 07/24/2025 ondansetron ODT (ZOFRAN-ODT) 4 mg disintegrating tablet Take 1 tablet (4 mg total) by mouth every 8 (eight) hours as needed for nausea 20 tablet 05/03/20 24 Active triamcinolone (KENALOG) 0.1 % ointment Apply topically 2 (two) times a day Apply thin layer to rash on back twice daily 80 g 1 12/07/19 25 Active Additional Information Patient not taking.Reported on 07/24/2025 blood-glucose meter kitIndications:DM type 2 with diabetic [...] SENSOR FOR 10 DAYS 04/27/20 25 Active TRUEplus Pen Needle 32 gauge x 32 needle USE 1 PEN NEEDLE TWICE DAILY 03/08/20 25 Active magnesium oxide (MAG-OX) 400 mg (241.3 mg elemental magnesium) tablet Take 1 tablet (400 mg total) by mouth daily 04/04/20 25 Active insulin glargine 100 unit/mL (3 mL) pen for injection Inject under the skin 04/04/20 25 Active Se-Nico 19 29 mg iron- 1 mg tablet Take 1 tablet by mouth daily 06/24/20 25 Active 115/iron/folic acid ( 19 ORAL) Take 1 tablet by mouth daily 025 Discontin ued(Alter steven therapy) dextrose (GLUTOSE) 40 % gelIndications: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) Take 15 g by mouth daily as needed for low blood sugar 15 g 11 05/01/20 25 025 Discontin ued(Thera py completed ) Active Problems Problem Noted Date Diagnosed Date [...] 02/01/2023 Assessment & Plan (09/24/2024 9:53 PM REGULATORY COMPLIANCE SPECIALIST): Chronic uncontrolled Intolerant to metformin Start [...] Work on low carb diet 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 [...] dosing Assessment & Plan (09/16/2023 4:00 PM REGULATORY COMPLIANCE SPECIALIST): Chronic condition Start quilipta Assessment & Plan (10/07/2022 10:23 AM REGULATORY COMPLIANCE SPECIALIST): Chronic uncontrolled Start quilipta Wrist sprain, [...] MRI Assessment & Plan (12/01/2021 12:34 PM REGULATORY COMPLIANCE SPECIALIST): Chronic with worsening pain Refer to naresh lockwood and treat Snoring 06/11/2021 Daytime somnolence 06/11/2021 Parasomnia 06/11/2021 BMI 40.0-44.9, adult 06/11/2021 Assessment & Plan (12/01/2021 12:42 PM REGULATORY COMPLIANCE SPECIALIST): Chronic condition not well controlled patient [...] 03/12/2021 Assessment & Plan (12/01/2021 12:42 PM REGULATORY COMPLIANCE SPECIALIST): Chronic condition order labs for evaluation Eczema of both hands 02/17/2021 Assessment & Plan (02/01/2023 12:56 PM CDT): Chronic and not well controlled Refill triamcinolone. Assessment & Plan (10/07/2022 10:30 AM REGULATORY COMPLIANCE SPECIALIST): Start triamcinolone tid prn hands Assessment [...] 07/18/2020 Assessment & Plan (10/07/2022 10:31 AM REGULATORY COMPLIANCE SPECIALIST): Refer to hematology Family history of [...] 07/26/2017 Assessment & Plan (10/07/2022 10:31 AM REGULATORY COMPLIANCE SPECIALIST): Chronic Failed p.t. and xrays and [...] cpap and is following with sleep medicine Comments Yes Encounters Date Type Department Care Team Description 07/25/2025 Orders Only [facility] Health Information Management [address] [place] [address] Antonio Baldwin PA 07/25/2025 Telephone [facility] Medicine Cardiology [address] [facility] [address] [place] [address] [place] [id number] Aparna Correia MD 07/24/2025 2:30 PM CDT Office Visit [facility] Medicine Cardiology [address] [facility] [address]th [place] [address] [place] [phone] Aparna Correia MD Abnormal EKG (Primary Dx); Family history of hypertrophic cardiomyopathy; Supervision of high risk in third trimester 07/04/2025 12:51 PM CDT - 07/04/2025 11:59 PM CDT Hospital Encounter [facility] [address] [place] [address] Discharge Disposition: Discharge to home or self care 06/27/2025 Telephone [facility] Cardiology [address] [facility] [address]th [place] [address] [place] [phone] Sierra Salazar 06/13/2025 1:45 PM CDT Office Visit [facility] Medical [facility] Family Medicine at [address] [place] [address] Antonio Baldwin PA Abnormal EKG (Primary Dx); Intractable migraine with aura without status migrainosus; 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) 05/01/2025 9:25 AM CDT Lab [facility] Medical Office Bldg [address] [place] [id number] Needle stick, hypodermic, accidental, subsequent encounter; Iron deficiency anemia, unspecified iron deficiency anemia type; Vitamin D deficiency; 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) 05/01/2025 8:15 AM CDT Office Visit [facility] Family Medicine at [address] [place] [address] Antonio Baldwin PA Needle stick, hypodermic, accidental, subsequent encounter (Primary Dx); Vitamin D deficiency; Iron deficiency anemia, unspecified iron deficiency anemia type; 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) 05/01/2025 Results Follow-Up [facility] at [address] [place] [address] Antonio Baldwin PA HIV 1/2 Antibody plus [...] Maternal Grandmother Shirley Hypertension Maternal Grandmother Shirley Coronary artery disease Maternal Great-Grandmother Heart defect Mother De'Havilland Hypertension Mother De'Havilland Hypertrophic cardiomyopathy Mother De'[place]avilland Diabetes Mother's Brother Jeremy Hypertrophic cardiomyopathy Other 1 heart transplant Other 2 Cancer Paternal Grandfather Sean Francois Cancer Paternal Grandmother Gayle Francois No Known Problems Sister 1 No Known Problems Sister 2 Thyroid disease Sister 3 Thyroid disease Sister 4 No Known Problems Son Relation Name Status Comments Brother 1 Alive Brother 2 Alive Daughter Alive Father Bert Alive Maternal Grandmother Shirley Maternal Great-Grandmother Mother De'Havilland Alive Mother's Brother Jeremy Other 1 Maternal great aunt Other 2 Alive Maternal cousin Paternal Grandfather Sean Francois Paternal Grandmother Gayle [...] on file Legal Sex Female 11:27 PM REGULATORY COMPLIANCE SPECIALIST Gender Identity Female 08/08/2021 9:31 AM CDT Sexual Orientation Straight 08/08/2021 9: 31 AM CDT Obstetrics History Para Term AB IAB SAB Ectopic Multiple Livin g Live Births 4 2 2 1 1 0 Date Outcome GA Total Labor Labor/2nd/3rd Weight Sex Type Anes PTL Joann A1 A5 Name Clin Term 12/2018 SAB SAB 020 Term Current Comments 36w5d Last Filed Vital Signs Vital Sign Reading Time Taken Comments Blood Pressure 132/84 07/24/2025 2:27 PM CDT Pulse 85 07/24/2025 2:27 PM CDT Temperature 36.2 C (97.1 F) 06/13/2025 2:06 PM CDT Respiratory Rate 18 09/22/2024 11:36 AM REGULATORY COMPLIANCE SPECIALIST Oxygen Saturation 100% 07/24/2025 2:27 PM CDT Inhaled Oxygen Concentration - - Weight 106.1 kg (234 lb) 07/24/2025 2:27 PM CDT Height 160 cm (5' 3) 07/24/2025 2:27 PM CDT Body Mass Index 41.45 07/24/2025 2:27 PM CDT Plan of Treatment Health Maintenance Due Date Last Done Comments Cervical Cancer Screening 1993 Dilated Eye Exam 1993 Foot Exam 1993 Regular Well Visit/Exam 18-64 2011 Pneumococcal vaccine <65 (1 of 2 - PCV) 01/04/2012 HPV Vaccines (1 - 3-dose SCD M series) 01/04/2020 Covid-19 Vaccine (3 - 2024-2 6 season) 2025 06/14/2021, 05/24/2021 Influenza Vaccine (#1) 2025 , 07/23/2023, 07/04/2023, Additional history exists Albumin Creatinine [...] Associated Diagnosis Comments SCAN - RADIOLOGY/IMAGING 07/25/2025 US TRANSFER OF OUTSIDE FILMS Routine 07/04/2025 12:51 PM CDT EGFR Routine 05/01/2025 9:27 AM CDT DM [...] encounter LIPID PANEL Routine 09/23/2024 7:24 AM REGULATORY COMPLIANCE SPECIALIST 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 There will be no report generated by a [facility] Radiologist. Narrative RAD_PACS_[facility] - 07/04/2025 12:51 PM CDT EXAMINATION: Images For Reference Purposes Only us Aparna Correia MD IMG US PROCEDURES Final Re sult RAD_P[facility] * eGFR (05/01/2025 9:27 AM CDT) eGFR >90 >=60 mL/min/1. 73 m2 Comment: [...] LAB BLOOD ORDERABLES Final Resu lt LULA [address] [facility] [place] [address] * (ABNORMAL) Differential, auto (05/01/2025 9:27 AM CDT) Neutrophil abs 7.94(H) 1.50 - 6.50 K/cumm Imm gran abs 0.05 0.00 - 0.10 K/cumm [facility] Lymphocyte abs 1.55 0.80 - 3.30 K/cumm [facility] Monocyte abs 0.54 0.20 - 0.80 K/cumm [facility] Eosinophil abs 0.05 0.00 - 0.50 K/cumm [facility] Basophil abs 0.03 0.00 - 0.10 K/cumm [facility] Neutrophil pct 78.1 % [facility] Comment: Interpretive Data Percent cell count reference ranges are not reported, since discordance with absolute values may lead to misinterpretation of CBC data. Current Interpretive Data was last revised on 2018. Imm gran pct 0.5 % [facility] Comment: Interpretive Data Percent cell count reference ranges are not reported, since discordance with absolute values may lead to misinterpretation of CBC data. Current Interpretive Data was last revised on 2018. Lymphocyte pct 15.3 % [facility] Comment: Interpretive Data Percent cell count reference ranges are not reported, since discordance with absolute values may lead to misinterpretation of CBC data. Current Interpretive Data was last revised on 2018. Monocyte pct 5.3 % [facility] Comment: Interpretive Data Percent cell count reference ranges are not reported, since discordance with absolute values may lead to misinterpretation of CBC data. Current Interpretive Data was last revised on 2018. Eosinophil pct 0.5 % [facility] Comment: Interpretive Data Percent cell count reference ranges are not reported, since discordance with absolute values may lead to misinterpretation of CBC data. Current Interpretive Data was last revised on 2018. Basophil pct 0.3 % [facility] Comment: Interpretive Data Percent cell count reference ranges are not reported, since discordance with absolute values may lead to misinterpretation of CBC data. Current Interpretive Data was last revised on 2018. Blood 05/01/2025 9:27 AM CDT 05/01/2025 12:12 PM CDT Antonio BAPTISTE LAB BLOOD ORDERABLES Final Resu lt Performing Organization Address [facility] Co de Phone Number AB[address] [address] * (ABNORMAL) Iron profile w/ IBC (05/01/2025 9:27 AM CDT) [facility] Iron 47 35 - 145 mcg/dL TIBC 446(H) 250 - 400 mcg/dL [facility] Transferrin saturation 11(L) 20 - 50 % [facility] Blood 05/01/2025 9:27 AM CDT 05/01/2025 12:12 PM CDT us Antonio BAPTISTE LAB BLOOD ORDERABLES Final Resu lt Performing Organization Address [facility] de Phone Number [address] [address] * HIV 1/2 Antibody plus p24 Antigen Blood (05/01/2025 9:27 AM CDT) [facility] HIV 1/2 ab + p24 ag Nonreactive Nonreactive Comment:Nonreactive for HIV- 1 antigen and HIV-1/HIV-2 antibodies. No laboratory evidence of HIV infection. If acute HIV infection is suspected, consider testing for HIV-1 RNA. Current interpretive data was last revised on 22. Blood 05/01/2025 9:27 AM CDT 05/01/2025 12:12 PM CDT Antonio BAPTISTE LAB MICROBIOLOGY - GENERAL ORDMartin HAN Final Result Performing Organization Address [facility] Co de Phone Number [address] [address] * (ABNORMAL) CBC with auto differential (05/01/2025 9:27 AM CDT) WBC 10.16(H) 3.80 - 9.90 K/cumm Hgb 10.6(L) 11.9 - 15.5 g/dL [facility] Hct 33.6(L) 35.6 - 45.5 % [facility] Plt 385 150 - 400 K/cumm [facility] MPV 9.5 9.1 - 12.3 fL [facility] RBC 4.42 3.90 - 5.20 M/cumm [facility] MCV 76.0(L) 81.3 - 96.4 fL [facility] MCH 24.0(L) 27.1 - 33.3 pg [facility] MCHC 31.5(L) 32.3 - 35.7 g/dL [facility] RDW CV 18.3(H) 11.1 - 14.9 % [facility] RDW SD 50.3(H) 35.7 - 48.1 fL [facility] NRBC abs 0.00 0.00 - 0.01 K/cumm [facility] Blood 05/01/2025 9:27 AM CDT 05/01/2025 12:12 PM CDT us Antonio BAPTISTE LAB BLOOD ORDERABLES Final Resu lt LULA [address] [facility] Department of Laboratories [place], [place] [id number] * Hepatitis C antibody Blood (05/01/2025 9:27 AM CDT) Hep C Ab Nonreactive Nonreactive Comment: Antibodies [...] Antonio BAPTISTE LAB MICROBIOLOGY - GENERAL ORDE HUMBERTOLES Final Result Performing Organization Address City/[facility] Co de Phone Number LULA [address] [address] * Vitamin D 25 hydroxy (05/01/2025 9:27 AM CDT) [facility] Vitamin D 25-OH 34.0 30.0 - 80.0 ng/mL Blood 05/01/2025 9:27 AM CDT 05/01/2025 12:12 PM CDT Antonio BAPTISTE [facility] BLOOD ORDERABLES Final Resu lt Performing Organization Address [facility] de Phone Number ABIG[address] [address] * (ABNORMAL) Hemoglobin A1c (05/01/2025 9:27 AM CDT) [facility] Hgb A1C 6.2(H) 4.0 - 5.6 % Estimated Average Glucose 131 mg/dL ABIGAILRUTH Comment: The ADA recommends reporting an estimated Average Glucose (eAG) with all Hemoglobin A1c results using the equation derived from a study of 507 normal and diabetic adults. Minority populations were underrepresented and children were not included. (Diabetes Care 31:6864-3145, 2008). The eAG is not equivalent to a fasting glucose. Blood 05/01/2025 9:27 AM CDT 05/01/2025 12:12 PM CDT Antonio BAPTISTE LAB BLOOD ORDERABLES Final Resu lt Performing Organization Address [facility] Co de Phone Number ABIGAIL[address] [place] [address] * Ferritin (05/01/2025 9:27 AM CDT) [facility] Ferritin 16 13 - 150 ng/mL Blood 05/01/2025 9:27 AM CDT 05/01/2025 12:12 PM CDT us Antonio BAPTISTE LAB BLOOD ORDERABLES Final Resu lt [facility] [address] [facility] Department [place] [address] * (ABNORMAL) Comprehensive metabolic panel (05/01/2025 9:27 AM CDT) Sodium 136 135 - 145 mmol/L Potassium, pl 3.9 3.3 - 4.9 mmol/L [facility] Chloride 104 97 - 110 mmol/L [facility] CO2 21(L) 22 - 32 mmol/L [facility] Anion gap 11 2 - 15 mmol/L [facility] BUN 6 6 - 25 mg/dL [facility] Creatinine 0.43(L) 0.60 - 1.10 mg/dL [facility] Glucose 94 70 - 199 mg/dL [facility] Comment: Interpretive Data Fasting glucose >/= [...] Calcium 9.2 8.5 - 10.3 mg/dL [facility] Bilirubin, total <0.2 0.1 - 1.2 mg/dL [facility] Protein, pl 7.0 6.5 - 8.5 g/dL [facility] Albumin 3.8 3.5 - 5.0 g/dL [facility] Alk phos 79 40 - 130 Units/L [facility] ALT 6(L) 7 - 45 Units/L [facility] AST 16 10 - 45 Units/L [facility] Blood 05/01/2025 9:27 AM CDT 05/01/2025 12:12 PM CDT us Antonio BAPTISTE LAB BLOOD ORDERABLES Final Resu lt [facility] [address] [facility] Department [place] [address] * (ABNORMAL) Lipid panel (09/23/2024 7:24 AM REGULATORY COMPLIANCE SPECIALIST) Cholesterol 142 30 - 199 mg/dL [...] on 2018. Triglycerides 54 <=149 mg/dL [facility] Comment: Interpretive Data Ages [...] on 2018. HDL 33(L) >=40 mg/dL [facility] Comment: Interpretive Data Ages [...] 4 [facility] Blood 09/23/2024 7:24 AM REGULATORY COMPLIANCE SPECIALIST 09/23/2024 9:41 AM REGULATORY COMPLIANCE SPECIALIST us Antonio BAPTISTE LAB BLOOD ORDERABLES Final Resu lt [facility] [address] [facility] Department [place] [address] * Albumin Creatinine Ratio, Urine (09/23/2024 7:20 AM REGULATORY COMPLIANCE SPECIALIST) Albumin Ur <12.0 mg/L Comment: Interpretive Data No reference range established. Current interpretive data was last revised 2019. Creatinine Ur 197.0 mg/dL [facility] STE[facility] Comment: Interpretive Data No reference range established. Current interpretive data was last revised 2019. Albumin Creatinine Ratio, Ur <6 1 - 29 mg/g [facility] Urine 09/23/2024 7:20 AM REGULATORY COMPLIANCE SPECIALIST 09/23/2024 9:37 AM REGULATORY COMPLIANCE SPECIALIST us Antonio BAPTISTE LAB URINE ORDERABLES Final Resu lt [facility] [address] [facility] [place] [address] from Last 3 Months or Most Recently Relevant to Health Maintenance Insurance [facility] * Guarantor: [employer] Account Type Relation to Patient Date of Phone Billing Address Third Democrat Liability Other Care Teams Manager Sign Relationship Specialty Start Date End Date Antonio Baldwin PA [address] [facility] [address] [address] PCP - General Family Medicine 07/01/22
[2025-07-29 23:46] VITALS: BP 147/89; PULSE 74
[2025-07-30 00:01] VITALS: BP 150/82; PULSE 70
[2025-07-30 00:16] VITALS: BP 140/84; PULSE 68
[2025-07-30 00:25] LABS: Hematocrit 29.4 % (37.0-47.0); Hemoglobin 8.9 g/dL (12.0-15.0); Immature Granulocyte Percent A 0.4 % (0-0.5); Lymphocytes Absolute Auto 1.61 K/mm3 (0.9-3.2); Mean Corpuscular HGB Conc 30.3 g/dl (32-36); Mean Corpuscular Hemoglobin 21.8 pg (26-34); Mean Corpuscular Volume 71.9 fl (80-100); Nucleated Red Blood Cells Absolute Auto 0.000 K/mm3 (0.0-0.012); Nucleated Red Blood Cells Perc 0.0 % (0.0-0.2); Platelet Count Result 319 k/mm3 (150-375); Red Blood Count 4.09 M/mm3 (4.2-5.4); White Blood Count 8.5 K/mm3 (4.5-10.0)
[2025-07-30 00:31] VITALS: BP 143/84; PULSE 65
[2025-07-30 00:38] LABS: Alanine Aminotransferase 7 U/L (6-35); Albumin Level 3.2 g/dL (3.5-5.1); Alkaline Phosphatase 123 U/L (38-126); Anion Gap 5 mmol/L (4-12); Aspartate Amino Transferase 18 U/L (14-36); Bilirubin,Total 0.2 mg/dL (0.2-1.3); Blood Urea Nitrogen 10 mg/dL (7-17); Calcium 8.5 mg/dL (8.4-10.2); Carbon Dioxide 21 mmol/L (22-30); Chloride 108 mmol/L (98-107); Estimated Glomerular Filt Rate > 60; Glucose 76 mg/dL (65-110); Potassium 4.2 mmol/L (3.4-5.0); Sodium 134 mmol/L (137-145); Total Protein 6.3 g/dL (6.3-8.2); Uric Acid 4.1 mg/dL (2.5-7.5)
[2025-07-30 00:46] VITALS: BP 138/78; PULSE 71
[2025-07-30 00:53] LABS: Add Urine Microscopic? YES; Appearance Urine Cloudy (Clear); Glucose Urine UA Negative (Negative); Leukocyte Esterase Ur Trace LEU/UL (Negative); Nitrate Urine Negative (Negative); Non Pathogenic Casts 0-2; Specific Grav Ur 1.027 (1.001-1.035)
[2025-07-30 01:01] VITALS: BP 138/84; PULSE 79
[2025-07-30 01:01] LABS: Total Protein Urine Random 8 mg/dL; Ur Ttl Prot Creatinine Ratio 0.04 mg/mg (0-0.20)
[2025-07-30 01:16] VITALS: BP 136/90; PULSE 75
[2025-07-30 01:17] VITALS: BMI 41.0
--- NOTE | 2025-07-30 01:18 | OBADM ---
This patient, Yenni Francois, admitted to the OB room OB Post 117 for observation. Patient/family oriented to hospital policies and general routines including ID bracelet, bed and alarms, visiting hours, pain management, procedures, bathroom and other care routines, personal items, smoking policy, room service/diet, and visiting hours. Patient/Family are encouraged to report perceived risks to care and to ask questions if they do not understand what they are told or what they should do.
--- NOTE | 2025-07-31 09:56 | PM.OBTRLD ---
OB - Triage/Final Diagnosis Visit Information Date of evaluation: 07/30/25 Reason for evaluation: other (elevated BP) Comments/Additional reasons for admission: I have assessed the risk for this patient, Yenni Francois, and determined that she would benefit from observation care. Evaluation Laboratory results: Laboratory Tests 07/30/25 07/30/25 00:06 00:07 WBC 8.5 RBC 4.09 L Hgb 8.9 L Hct 29.4 L MCV 71.9 L MCH 21.8 L MCHC 30.3 L RDW 17.1 H Plt Count 319 MPV 9.5 Immature Gran % (Auto) 0.4 Neut % (Auto) 73.3 H Lymph % (Auto) 19.0 [place] % (Auto) 6.7 Eos % (Auto) 0.4 Baso % (Auto) 0.2 Lymph # (Auto) 1.61 [place] # (Auto) 0.6 Eos # (Auto) 0.0 Baso # (Auto) 0.0 Abs Immat Gran (auto) 0.03 Absolute Neuts (auto) 6.2 Absolute Nucleated RBC 0.000 Nucleated RBC % 0.0 Sodium 134 L Potassium 4.2 Chloride 108 H Carbon Dioxide 21 L Anion Gap 5 BUN 10 Creatinine 0.49 L Estim Creat Clear Calc Not Reportable Estimated GFR > 60 Glucose 76 Uric Acid 4.1 Calcium 8.5 Total Bilirubin 0.2 AST 18 ALT 7 Alkaline Phosphatase 123 Total Protein 6.3 Albumin 3.2 L Urine Color Yellow Urine Appearance Cloudy H Urine pH 5.5 Ur Specific [place] 1.027 Urine Protein Trace Urine Glucose (UA) Negative Urine Ketones Trace H Ur Blood (Man) Negative Urine Nitrate Negative Urine Bilirubin Negative Urine Urobilinogen 1.0 Leukocyte Esterase Rfl Trace H Urine RBC 0-2 Urine WBC 0-5 Ur Squamous Epith Cells Moderate Urine Bacteria 2+ H Urine Casts 0-2 U Random Total Protein 8 Urine Creatinine 219.5 Protein/Creat Ratio 2 0.04
== END 2025-07-30 01:35 | disposition home or self-care (01) ==
PROVIDERS: Admitting Provider Student in an Organized Health Care Education/Training Program; PCP Physician Assistant Medical; Visit Provider Student in an Organized Health Care Education/Training Program
DX: O16.3 Unspecified maternal hypertension, third trimester (principal); Z3A.37 37 weeks gestation of pregnancy
CPT/HCPCS: 36415; 80053; 81001; 82570; 84112; 84156; 84550; 85025; A9270; G0378; G0379

== ENCOUNTER 2025-07-30 09:45 | Observation (INO) | payer OTHER, SELFPAY ==
[2025-07-30] VITALS (8 sets, daily range): BP systolic 120–157; BP diastolic 84–104; PULSE 67–81; TEMP 36.9; BMI 43.0
--- NOTE | 2025-07-30 10:21 | PC.NURSE ---
Dr Miles informed of minimal variability and no accels and elevated BP. Orders for PIH labs and cont to monitor.
--- NOTE | 2025-07-30 10:37 | PC.NURSE ---
Dr Miles updated that the patient had labs drawn around midnight and had a reactive tracing at that time. Orders to cont to monitor FHT's at this time.
[2025-07-30] MEDS: ACETAMINOPHEN 325 MG TABLET 650 MG PO (11:36)
--- NOTE | 2025-07-30 11:45 | OBADM ---
This patient, Yenni Francois, admitted to the OB room OB Post 115 for observation. Patient/family oriented to hospital policies and general routines including ID bracelet, bed and alarms, visiting hours, pain management, procedures, bathroom and other care routines, personal items, smoking policy, room service/diet, and visiting hours. Patient/Family are encouraged to report perceived risks to care and to ask questions if they do not understand what they are told or what they should do.
[2025-07-30 13:24] LABS: OBXCEM ROM Plus Negative (Negative)
--- NOTE | 2025-08-06 17:21 | PM.OBTRLD ---
OB - Triage/Final Diagnosis Visit Information Comments/Additional reasons for admission: I have assessed the risk for this patient, Yenni Francois, and determined that she would benefit from observation care. Evaluation Laboratory results: Laboratory Tests 07/30/25 12:55 Membranes Rupture Rom plus negative Final Diagnosis (1) Abnormal heartbeat: Status: Acute
== END 2025-07-30 13:20 | disposition home or self-care (01) ==
PROVIDERS: Admitting Provider Obstetrics & Gynecology; PCP Physician Assistant Medical; Visit Provider Obstetrics & Gynecology
DX: O36.8330 Maternal care for abnormalities of the fetal heart rate or rhythm, third trimester, not applicable or unspecified (principal); Z3A.37 37 weeks gestation of pregnancy
CPT/HCPCS: 84112; A9270; G0378; G0379

== ENCOUNTER 2025-07-31 09:25 | Inpatient (IN) | payer OTHER, SELFPAY ==
--- OUTSIDE RECORDS SUMMARY | 2025-07-30 07:28 | XMS_ITS | Encounter Summary ---
Author Organization [facility] Address [address] [place] [address] Care Team Providers Care Supply Chain Buyer Name Role Phone Unavailable Primary Care Provider Unavailabl e Reason for Referral * (Routine) - Open Specialty Diagnoses / Procedures Referred By Contac t Referred To Contact Diagnoses complicated by pre-existing type 2 diabetes in second trimester (HCC) Severe obesity due to excess calories affecting in second trimester (HCC) Encounter for ultrasound to assess growth (HCC) Encounter for other screening follow-up (HCC) 33 weeks gestation of (HCC) Procedures Biophysical Profile w NST Jeramie Whitley MD [address] [facility] [address] [place] [id number] Phone: tel: fax: Referral ID Status Reason Start Date Expiration Date Visits Re quested Visits Authorized [id number] Open 06/26/2025 06/26/2026 5 5 Reason for Visit * Reason Comments Ultrasound Non-stress Test * (Routine) - Open Specialty Diagnoses / Procedures Referred By Contac t Referred To Contact Diagnoses complicated by pre-existing type 2 diabetes in second trimester (HCC) Severe obesity due to excess calories affecting in second trimester (HCC) Encounter for ultrasound to assess growth (HCC) Encounter for other screening follow-up (HCC) 33 weeks gestation of (HCC) Procedures Biophysical Profile w NST Jeramie Whitley MD [address] [facility] [address] [place] [address] Phone: tel: fax: Referral ID Status Reason Start Date Expiration Date Visits Re quested Visits Authorized [id number] Open 06/26/2025 06/26/2026 5 5 Encounter Details Date Type Department Care Team (Latest Contact Info) Description 07/30/2025 7:28 AM CDT - 07/30/2025 11:59 PM CDT Hospital Encounter [facility]aternal & Care [address] [place], [place] [id number] Yadira Wei MD [address] [facility] 4TH [place] [address] Discharge Disposition: Home or Self Care Social [...] on file 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 Gender Identity Not on file Sexual Orientation Not on file documented as of this encounter Last Filed Vital Signs Vital Sign Reading Time Taken Comments Blood Pressure 133/90 07/30/2025 9:37 AM CDT Pulse 70 07/30/2025 9:37 AM CDT Temperature - - Respiratory Rate - - Oxygen Saturation - - Inhaled Oxygen Concentration - - Weight - - Height - - Body Mass Index - - documented in this encounter Medications at Time of Discharge albuterol HFA (PROVENTIL;VENTOLIN ;PROAIR) 108 (90 BASE) MCG/ACT inhalerIndications: Extrinsic asthma, unspecified (HCC) Inhale 2 Puffs by mouth every 4 hours as needed for Shortness of Breath, Wheezing and Cough. 1 3 0 cetirizine (ZYRTEC) 10 MG tabletIndications:A llergic rhinitis Take 1 Tab by mouth at bedtime. 30 3 0 Continuous Glucose Sensor (Canonicalcom G7 Sensor) MISCIndications:Pre gnancy complicated by pre-existing type 2 diabetes in second trimester ([facility]) Use 1 applicator every 10 days 3 Each 2 5 fluticasone hfa 44 (FLOVENT HFA 44) 44 MCG/ACT inhalerIndications: Extrinsic asthma, unspecified ([facility]) Inhale 2 Puffs by mouth 2 times daily. 1 3 0 fluticasone propionate (FLUTICASONE PROPIONATE) 50 MCG/ACT nasal sprayIndications:Al lergic rhinitis [place] 2 Sprays into each nostril daily. 1 3 0 Glucagon (Baqsimi One Pack) 3 MG/DOSE POWD [place] 1 Each into the nose as needed For emergency use only 1 Each 5 insulin glargine (Lantus/Semglee) 100 units/mL penIndications:Pre- existing type 2 diabetes mellitus during in third trimester ([facility]) Prime needle with 2 units waste, then inject 26 units every morning and 26 units every night. Increase dose as directed due to increasing insulin requirements during . Max total daily dose of 100 units. 30 mL 5 5 insulin lispro (HumaLOG;ADMelog) 100 UNIT/ML penIndications:Pre- existing type 2 diabetes mellitus during in third trimester ([facility]) Prime needle with 2 units waste, then inject 18 units with breakfast, 18 units with lunch, and 18 units with dinner. Increase doses as directed due to increasing insulin requirements during . Max total daily dose of 100 units. 30 mL 5 5 insulin pen needle (Novofine) 32G X 6 MM MISCIndications:Typ e 2 diabetes mellitus in , first trimester ([facility]) 1 (one) Each by Injection route [...] Progress Notes * Clarice Chavez RN - 07/30/2025 9:19 AM CDT Her 24 hour urine from 07/25 was 27, previously 35 on 05/13. On 07/30/25 at [facility] her labs were AST 18, ALT 7, platelets 319. She has +2 swelling infeet and headache since yesterday. She reports she is having elevated blood pressures at home and OB office this past week. Patient is 133/90 today for me. Her home blood pressures are 143/91 (07/28 AM), 151/91 (07/28 PM) , 144/97 (07/29 PM). NST and Blood pressures reviewed today with Dr. Wei. Patient's NST showed minimal variability throughout majority of last hour with a couple 5-10 minute increments of moderate variability noted. RN noted audible movement on NST monitor. RN held FHR monitor and readjusted a couple times from [id number] to try to obtain FHR. Orders received to send patient to [facility] for extended monitoring. Called Dr. Ashley's office to notify them of M recommendations and patient to present to local L&D for extended monitoring. Ultrasound report faxed to primary OB office. Sabrina at [facility] notified patient will be coming in for evaluation/extended monitoring. 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 Hospital Encounter [facility] [address] [place] [id number] documented as of this encounter Procedures Procedure Name Priority Date/Time Associated Diagnosis Comments BIOPHYSICAL PROFILE W NST Routine 07/30/2025 7:47 AM CDT complicated by pre-existing type 2 diabetes in second trimester ([facility]) Severe obesity due to excess calories affecting in second trimester ([facility]) Encounter for ultrasound to assess growth ([facility]) Encounter for other screening follow-up ([facility]) 33 weeks gestation of ([facility]) documented in this encounter Results * Biophysical Profile w NST (07/30/2025 7:47 AM CDT) Linked Results Indication ======== Pre-existing type 2 diabetes mellitus, in Obesity complicating , Class 3 - BMI of 40.0 or greater History ====== OB History 4. Para 2 [id number] 1. live 2015. Gest. age 39 w + 0 d. Weight 3,742 g. Sex of child: female. Details: 2. miscarriage 2019 3. live 2019. Gest. age 39 w + 0 d. Weight 3,685 g. Sex of child: male. Details: C/S NRFS Lab Tests Test Date Result Not performed Maternal Assessment Physical Exam Height 160 cm, 5 ft 3 in. Weight 110 kg, 242 lb. Initial weight 109 kg, 241 lb. BMI 42.87 kg/m . Initial BMI 42.69 kg/m . Weight gain 0 kg, 1 lb Method ====== Transabdominal ultrasound examination. View: Sufficient ========= Aldana . Number of fetuses: 1 Dating ====== Date Details Gest. age JOHN LMP 11/04/2024 Cycle: irregular cycle 38 w + 2 d 08/11/2025 Stated JOHN 37 w + 4 d 08/16/2025 Previous U/S 12/26/2024 CRL 7.9 mm 37 w + 4 d 08/16/2025 Assigned dating based on ultrasound (CRL), selected on 01/31/2025 37 w + 4 d 08/16/2025 General Evaluation Cardiac activity present. FHR 133 bpm. Presentation: cephalic Placenta: Placental site: anterior Amniotic Fluid Assessment ==== Amount of AF: normal, however appears subjectively decreased MVP 3.2 cm. FARHAD 8.2 cm. Q1 2.4 cm, Q2 0.8 cm, Q3 1.8 cm, Q4 3.2 cm Biophysical Profile 2: breathing movements 2: Gross body movements 2: tone 2: Amniotic fluid volume NST: non-reactive 05/13 Biophysical profile score Non Stress Test NST interpretation: non-reactive. Baseline FHR 140 bpm. Baseline variability: moderate. Accelerations: absent Biometry BPD 90.6 mm 36w 5d 46% Hadlock HC 324.8 mm 36w 5d 13% Hadlock AC 346.5 mm 38w 4d 88% Hadlock Femur 75.2 mm 38w 3d 73% Hadlock Humerus 66.3 mm 38w 3d 94% Ayse HC / AC 0.94 Weight Calculation: EFW 3,395 g 72% Hadlock EFW (lb,oz) 7 lb 8 oz EFW by Hadlock ([id number]) appropriate Growth Overview Exam date GA BPD (mm) [...] 99% 63.9 42% 60.7 98% 2466 88% 07/30/2025 37w 4d 90.6 46% 324.8 13% 346.5 88% 75.2 73% 66.3 94% 3395 72% Anatomy The following structures appear normal: Abdomen Stomach. Kidneys. Bladder. sex: female. Impression ========= Single, live, intrauterine at 37w 4d The growth is appropriate. The amniotic fluid volume is normal, however appears subjectively decreased. The biophysical profile is 8/10. (-2 NST) Comment ======== ultrasound alone cannot detect all structural, genetic, or functional , placental, or maternal abnormalities Follow-up ======== The patient will be sent to the hospital for extended monitoring. There is a question of gestational hypertension based on BP of 140/90. If this is confirmed, delivery is indicated at this gestational age. Continue twice weekly testing with close surveillance of blood pressure if undelivered. Coding ====== Diagnoses O99.213, E66.813: Obesity complicating , Class 3 - BMI of 40.0 or greater O24.113: Pre-existing type 2 diabetes mellitus, in Procedures 626[address]: [place] [address]: Biophysical Profile W NST T [facility] PACS Anatomical Region Laterality Modality Other 07/30/2025 7:47 AM CDT Jeramie Lassiter MD [facility] Edited Result - Final documented in this encounter Visit Diagnoses Diagnosis complicated by pre-existing type 2 diabetes in second trimester (HCC)- Primary Severe obesity due to excess calories affecting in second trimester (HCC) 36 weeks gestation of ([facility]) state, incidental Encounter for other screening follow-up ([facility]) Encounter for ultrasound to assess growth ([facility]) 33 weeks gestation of ([facility]) state, incidental complicated by pre-existing type 2 diabetes in second trimester (HCC)- Primary Severe obesity due to excess calories affecting in second trimester (HCC) 36 weeks gestation of ([facility]) state, incidental Encounter for ultrasound to assess growth (HCC) complicated by pre-existing type 2 diabetes in second trimester ([facility])- Primary Severe obesity due to excess calories affecting in second trimester (HCC) 38 weeks gestation of (HCC) state, incidental Encounter for other screening follow-up ([facility]) documented in this encounter
[2025-07-31] VITALS (56 sets, daily range): BP systolic 119–138; BP diastolic 63–90; PULSE 57–125; RESP 14–22; TEMP 36.2–37.1; O2SAT 70–100; BMI 39.6
--- OUTSIDE RECORDS SUMMARY | 2025-07-31 00:38 | XMS_ITS | Clinical Summary ---
Author Organization [facility] [address] [facility] Address [address] [place] [address] Care Team Providers Care Lab Technician Name Role Phone Antonio Baldwin Primary Care Provider [phone] Allergies Active Allergy Reactions Criticality Noted Date [...] Assessment & Plan (09/24/2024 9:53 PM REGIONAL MEDICAL DIRECTOR): Chronic uncontrolled Intolerant to metformin Start trulicity [...] Work on low carb diet Refer to historic interpreter Order a1c in 3mo Dyspnea 12/23/2022 Left foot pain 12/23/2022 Overview (12/23/2022): COnt diclofenac Cont podiatry Intractable migraine with aura without status mi grainosus 10/07/2022 Assessment & Plan (09/24/2024 9:52 PM REGIONAL MEDICAL DIRECTOR): Chronic stable and improving with quilipta. Continue [...] Assessment & Plan (09/16/2023 4:00 PM REGIONAL MEDICAL DIRECTOR): Chronic condition Start quilipta Assessment & Plan (10/07/2022 10:23 AM REGIONAL MEDICAL DIRECTOR): Chronic uncontrolled Start quilipta Wrist sprain, right, [...] Assessment & Plan (12/01/2021 12:34 PM REGIONAL MEDICAL DIRECTOR): Chronic with worsening pain Refer to naresh lockwood and treat Snoring 06/11/2021 Daytime somnolence 06/11/2021 Parasomnia 06/11/2021 BMI 40.0-44.9, adult 06/11/2021 Assessment & Plan (12/01/2021 12:42 PM REGIONAL MEDICAL DIRECTOR): Chronic condition not well controlled patient advised [...] Assessment & Plan (12/01/2021 12:42 PM REGIONAL MEDICAL DIRECTOR): Chronic condition order labs for evaluation Eczema of both hands 02/17/2021 Assessment & Plan (02/01/2023 12:56 PM CDT): Chronic and not well controlled Refill triamcinolone. Assessment & Plan (10/07/2022 10:30 AM REGIONAL MEDICAL DIRECTOR): Start triamcinolone tid prn hands Assessment & [...] Assessment & Plan (10/07/2022 10:31 AM REGIONAL MEDICAL DIRECTOR): Refer to hematology Family history of hemoglobin [...] Assessment & Plan (10/07/2022 10:31 AM REGIONAL MEDICAL DIRECTOR): Chronic Failed p.t. and xrays and nsaids [...] Department Care Team Description 07/25/2025 Orders Only [facility] Health Information Management [address] [place] [address] Antonio Baldwin PA 07/25/2025 Telephone [facility] Medicine Cardiology [address] [facility] Advanced Medicine 8th [place] [address] [place] [id number] Aparna Correia MD 07/24/2025 2:30 PM CDT Office Visit [facility] Medicine Cardiology [address] [facility] Advanced Medicine 8th [place] [address] [place] [phone] Aparna Correia MD Abnormal EKG (Primary Dx); Family history of hypertrophic cardiomyopathy; Supervision of high risk in third trimester 07/04/2025 12:51 PM CDT - 07/04/2025 11:59 PM CDT Hospital Encounter [facility] [address] [place] [address] Discharge Disposition: Discharge to home or self care 06/27/2025 Telephone [facility] Cardiology [address] [facility] Advanced Medicine 8th [place] [address] [place] [phone] Sierra Salazar 06/13/2025 1:45 PM CDT Office Visit [facility] Medical [facility] Family Medicine at [address] [place] [address] Antonio Baldwin PA Abnormal EKG (Primary Dx); Intractable migraine with aura without status migrainosus; 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) 05/01/2025 9:25 AM CDT Lab [facility] Medical Office Bldg [address] [place] [address] Needle stick, hypodermic, accidental, subsequent encounter; Iron deficiency anemia, unspecified iron deficiency anemia type; Vitamin D deficiency; 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) 05/01/2025 8:15 AM CDT Office Visit [facility] Family Medicine at [address] [place] [address] Antonio Baldwin PA Needle stick, hypodermic, accidental, subsequent encounter (Primary Dx); Vitamin D deficiency; Iron deficiency anemia, unspecified iron deficiency anemia type; 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) 05/01/2025 Results Follow-Up [facility] Family Medicine at [address] [place] [address] Antonio Baldwin PA HIV 1/2 Antibody plus [...] file Legal Sex Female 11:27 PM REGIONAL MEDICAL DIRECTOR Gender Identity Female 08/08/2021 9:31 AM [...] CDT Respiratory Rate 18 09/22/2024 11:36 AM REGIONAL MEDICAL DIRECTOR Oxygen Saturation 100% 07/24/2025 2:27 PM CDT [...] encounter LIPID PANEL Routine 09/23/2024 7:24 AM REGIONAL MEDICAL DIRECTOR 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) ALBUMIN CREATININE RATIO, URINE Routine 09/23/2024 7:20 AM REGIONAL MEDICAL DIRECTOR 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 There will be no report generated by a [facility] Radiologist. Narrative RAD_PACS_[facility] - 07/04/2025 12:51 PM [...] LAB BLOOD ORDERABLES Final Resu lt LULA [address] [facility] Department [place] [address] * (ABNORMAL) Differential, auto (05/01/2025 9:27 AM CDT) Neutrophil abs 7.94(H) 1.50 - 6.50 K/cumm Imm gran abs 0.05 0.00 - 0.10 K/cumm [facility] Lymphocyte abs 1.55 0.80 - 3.30 K/cumm [facility] Monocyte abs 0.54 0.20 - 0.80 K/cumm [facility] Eosinophil abs 0.05 0.00 - 0.50 K/cumm [facility] Basophil abs 0.03 0.00 - 0.10 K/cumm [facility] Neutrophil pct 78.1 % [facility] Comment: Interpretive Data Percent cell count reference ranges are not reported, since discordance with absolute values may lead to misinterpretation of CBC data. Current Interpretive Data was last revised on 2018. Imm gran pct 0.5 % [facility] Comment: Interpretive Data Percent cell count reference ranges are not reported, since discordance with absolute values may lead to misinterpretation of CBC data. Current Interpretive Data was last revised on 2018. Lymphocyte pct 15.3 % [facility] Comment: Interpretive Data Percent cell count reference ranges are not reported, since discordance with absolute values may lead to misinterpretation of CBC data. Current Interpretive Data was last revised on 2018. Monocyte pct 5.3 % [facility] Comment: Interpretive Data Percent cell count reference ranges are not reported, since discordance with absolute values may lead to misinterpretation of CBC data. Current Interpretive Data was last revised on 2018. Eosinophil pct 0.5 % [facility] Comment: Interpretive Data Percent cell count reference ranges are not reported, since discordance with absolute values may lead to misinterpretation of CBC data. Current Interpretive Data was last revised on 2018. Basophil pct 0.3 % [facility] Comment: Interpretive Data Percent cell count reference ranges are not reported, since discordance with absolute values may lead to misinterpretation of CBC data. Current Interpretive Data was last revised on 2018. Blood 05/01/2025 9:27 AM CDT 05/01/2025 12:12 PM CDT Antonio BAPTISTE LAB BLOOD ORDERABLES Final Resu lt Performing Organization Address [facility] Co de Phone Number ABIGAIL[address] [address] * (ABNORMAL) Iron profile w/ IBC (05/01/2025 9:27 AM CDT) [facility] Iron 47 35 - 145 mcg/dL TIBC 446(H) 250 - 400 mcg/dL [facility] Transferrin saturation 11(L) 20 - 50 % [facility] Blood 05/01/2025 9:27 AM CDT 05/01/2025 12:12 PM CDT us Antonio BAPTISTE LAB BLOOD ORDERABLES Final Resu lt Performing Organization Address [facility] de Phone Number [address] [address] * HIV 1/2 Antibody plus p24 Antigen Blood (05/01/2025 9:27 AM CDT) [facility] HIV 1/2 ab + p24 ag [...] ORDMartin HAN Final Result Performing Organization Address [facility] Co de Phone Number [address] [address] * (ABNORMAL) CBC with auto differential (05/01/2025 9:27 AM CDT) WBC 10.16(H) 3.80 - 9.90 K/cumm Hgb 10.6(L) 11.9 - 15.5 g/dL [facility] Hct 33.6(L) 35.6 - 45.5 % [facility] Plt 385 150 - 400 K/cumm [facility] MPV 9.5 9.1 - 12.3 fL [facility] RBC 4.42 3.90 - 5.20 M/cumm [facility] MCV 76.0(L) 81.3 - 96.4 fL [facility] MCH 24.0(L) 27.1 - 33.3 pg [facility] MCHC 31.5(L) 32.3 - 35.7 g/dL [facility] RDW CV 18.3(H) 11.1 - 14.9 % [facility] RDW SD 50.3(H) 35.7 - 48.1 fL [facility] NRBC abs 0.00 0.00 - 0.01 K/cumm [facility] Blood 05/01/2025 9:27 AM CDT 05/01/2025 12:12 PM CDT us Antonio BAPTISTE LAB BLOOD ORDERABLES Final Resu lt LULA [address] [facility] Department of Laboratories [place], [place] [id number] * Hepatitis C antibody Blood (05/01/2025 9:27 [...] ORDE HUMBERTOLES Final Result Performing Organization Address City/[facility] Co de Phone Number LULA [address] [address] * Vitamin D 25 hydroxy (05/01/2025 9:27 AM CDT) [facility] Vitamin D 25-OH 34.0 30.0 - 80.0 ng/mL Blood 05/01/2025 9:27 AM CDT 05/01/2025 12:12 PM CDT Antonio BAPTISTE [facility] BLOOD ORDERABLES Final Resu lt Performing Organization Address [facility] de Phone Number ABIGAIL[address] [address] * (ABNORMAL) Hemoglobin A1c (05/01/2025 9:27 AM CDT) [facility] Hgb A1C 6.2(H) 4.0 - 5.6 % Estimated Average Glucose 131 mg/dL ABIGAILRUTH Comment: The ADA recommends reporting an estimated Average Glucose (eAG) with all Hemoglobin A1c results using the equation derived from a study of 507 normal and diabetic adults. Minority populations were underrepresented and children were not included. (Diabetes Care 31:7651-4887, 2008). The eAG is not equivalent to a fasting glucose. Blood 05/01/2025 9:27 AM CDT 05/01/2025 12:12 PM CDT Antonio BAPTISTE LAB BLOOD ORDERABLES Final Resu lt Performing Organization Address [facility] Co de Phone Number ABIGAIL[address] [place] [address] * Ferritin (05/01/2025 9:27 AM CDT) [facility] Ferritin 16 13 - 150 ng/mL Blood 05/01/2025 9:27 AM CDT 05/01/2025 12:12 PM CDT us Antonio BAPTISTE LAB BLOOD ORDERABLES Final Resu lt [facility] [address] [facility] Department [place] [address] * (ABNORMAL) Comprehensive metabolic panel (05/01/2025 9:27 AM CDT) Sodium 136 135 - 145 mmol/L Potassium, pl 3.9 3.3 - 4.9 mmol/L [facility] Chloride 104 97 - 110 mmol/L [facility] CO2 21(L) 22 - 32 mmol/L [facility] Anion gap 11 2 - 15 mmol/L [facility] BUN 6 6 - 25 mg/dL [facility] Creatinine 0.43(L) 0.60 - 1.10 mg/dL [facility] Glucose 94 70 - 199 mg/dL [facility] Comment: Interpretive Data Fasting glucose [...] 2022. Calcium 9.2 8.5 - 10.3 mg/dL [facility] Bilirubin, total <0.2 0.1 - 1.2 mg/dL [facility] Protein, pl 7.0 6.5 - 8.5 g/dL [facility] Albumin 3.8 3.5 - 5.0 g/dL [facility] Alk phos 79 40 - 130 Units/L [facility] ALT 6(L) 7 - 45 Units/L [facility] AST 16 10 - 45 Units/L [facility] Blood 05/01/2025 9:27 AM CDT 05/01/2025 12:12 PM CDT us Antonio BAPTISTE LAB BLOOD ORDERABLES Final Resu lt LULA [facility] [address] [facility] Department [place] [address] * (ABNORMAL) Lipid panel (09/23/2024 7:24 AM REGIONAL MEDICAL DIRECTOR) Cholesterol 142 30 - 199 mg/dL Comment: [...] 4 [facility] [employer] Blood 09/23/2024 7:24 AM REGIONAL MEDICAL DIRECTOR 09/23/2024 9:41 AM REGIONAL MEDICAL DIRECTOR us Antonio BATPISTE LAB BLOOD ORDERABLES Final Resu lt LULA [employer] [address] [facility] Department [place] [address] * Albumin Creatinine Ratio, Urine (09/23/2024 7:20 AM REGIONAL MEDICAL DIRECTOR) Albumin Ur <12.0 mg/L Comment: Interpretive Data No reference range established. Current interpretive data was last revised 2019. Creatinine Ur 197.0 mg/dL [facility] Comment: Interpretive Data No reference range established. Current interpretive data was last revised 2019. Albumin Creatinine Ratio, Ur <6 1 - 29 mg/g [facility] Urine 09/23/2024 7:20 AM REGIONAL MEDICAL DIRECTOR 09/23/2024 9:37 AM REGIONAL MEDICAL DIRECTOR us Antonio BAPTISTE LAB URINE ORDERABLES Final Resu lt LULA [address] [facility] Department [place] [address] from Last 3 Months or Most Recently Relevant to Health Maintenance Insurance [facility] * Guarantor: [employer] Account Type Relation to Patient Date of Phone Billing Address Third Green Party Liability Other Care Teams Lab Technician Relationship Specialty Start Date End Date Antonio Baldiwn PA [address] [facility] [address] [address] PCP - General Family Medicine 07/01/22
--- OUTSIDE RECORDS SUMMARY | 2025-07-31 00:38 | XMS_ITS | Encounter Summary ---
Author Organization [facility] Facility Care Team Providers Care Drill Press Set Up Operator Radial Name Role Phone Phillip Coker MD Primary Care Provider [phone] Antonio Baldwin Primary Care Provider [phone] Encounter Details Date Type Department Care Team (Latest Contact Info) Description 07/20/2017 Orders Only [facility] CLINCONV Provider, MD Pérez [address] [place] [address] Social History Tobacco Use Types Packs/Day Years Used Date Smoking Tobacco: Never Assessed Comments Unknown Sex and Gender Information Value Date Recorded Sex Assigned at Not on file Legal Sex Female 11:27 PM CARGO VESSEL STEWARDESS Gender Identity Female 08/08/2021 9:31 AM CDT [...] COVID: Suspected 09/01/2021 09/01/2021 09/02/2021 1:03 AM CARGO VESSEL STEWARDESS COVID: Suspected 10/01/2021 10/01/2021 10/02/2021 4:52 AM CARGO VESSEL STEWARDESS COVID19 10/01/2021 10/01/2021 10/15/2021 3:07 AM CARGO VESSEL STEWARDESS COVID: Recovered Comment:Added based on recent COVID infection. 10/15/2021 10/20/2021 02/12/2022 3:05 AM C DT COVID: Suspected 12/11/2021 12/11/2021 12/12/2021 12:07 AM CARGO VESSEL STEWARDESS COVID: Suspected 06/21/2023 06/21/2023 06/21/2023 3:30 PM CDT COVID: Suspected 06/21/2023 06/21/2023 06/21/2023 6:32 PM CDT documented as of this encounter Care Teams Drill Press Set Up Operator Radial Relationship Specialty Start Date End Date Phillip Coker MD PCP - General 12/30/18 06/30/22 Antonio Baldwin PA [address] [facility] [address] [address] PCP - General Family Medicine 07/01/22 documented as of this encounter
--- OUTSIDE RECORDS SUMMARY | 2025-07-31 00:38 | XMS_ITS | Clinical Summary ---
Author Organization [facility] Address [address] [facility] [place] [address] Care Team Providers Care Perinatal Nurse Name Role Phone Unavailable Primary Care Provider Unavailabl e Source Comments [facility],non-owned Affiliates and Associated Physician Practices is amultiple site organization consisting of ambulatory clinics and hospital sitesin [place], [place], [place] and [place]. This disclosure is being madepursuant to the Care Everywhere program and may not contain all information available regarding this patient. Last updated 18.[facility] Allergies Active Allergy Reactions Criticality Noted Date Comments Sulfa Drugs Unknown High 04/19/2020 Medications * Be aware that medications may not be up to date on this document. Alwaysverify current medications with the patient. cetirizine (ZYRTEC) 10 MG tabletIndications :Allergic rhinitis Take 1 Tab by mouth at bedtime. 30 3 010 Active fluticasone propionate (FLUTICASONE PROPIONATE) 50 MCG/ACT nasal sprayIndications: Allergic rhinitis [place] 2 Sprays into each nostril daily. 1 [...] (90 BASE) MCG/ACT inhalerIndication s:Extrinsic asthma, unspecified ([facility]) Inhale 2 Puffs by mouth every 4 [...] Glucagon (Baqsimi One Pack) 3 MG/DOSE POWD [place] 1 Each into the nose as needed [...] 2 diabetes mellitus in , first trimester ([facility]) 1 (one) Each by Injection route 4 times daily 100 Each 5 025 Active Continuous Glucose Sensor (Dexcom G7 Sensor) MISCIndications:P regnancy complicated by pre-existing type 2 diabetes in second trimester ([facility]) Use 1 applicator every 10 days 3 Each 2 025 Active insulin glargine (Lantus/Semglee) 100 units/mL penIndications:Pr e-existing type 2 diabetes mellitus during in third trimester ([facility]) Prime needle with 2 units waste, then inject 26 units every morning and 26 units every night. Increase dose as directed due to increasing insulin requirements during . Max total daily dose of 100 units. 30 mL 5 025 Active insulin lispro (HumaLOG;ADMelog) 100 UNIT/ML penIndications:Pr e-existing type 2 diabetes mellitus during in third trimester ([facility]) Prime needle with 2 units waste, then [...] 2 diabetes mellitus during in third trimester ([facility]) Prime needle with 2 units waste, then inject 12 units with breakfast, 12 units with lunch, and 16 units with dinner. Increase doses as directed due to increasing insulin requirements during . Max total daily dose of 50 units. 15 mL 025 2024 Discontinued insulin lispro (HumaLOG;ADMelog) 100 UNIT/ML penIndications:Pr e-existing type 2 diabetes mellitus during in third trimester ([facility]) Prime needle with 2 units waste, then [...] Encounters Date Type Department Care Team Description 07/30/2025 7:28 AM CDT - 07/30/2025 11:59 PM CDT Hospital Encounter [facility] [address] [place] [id number] Yadira Wei MD Discharge Disposition: Home or Self Care 07/27/2025 8:15 AM CDT - 07/27/2025 11:59 PM CDT Hospital Encounter [facility] [address] [place], [place] [id number] Didier Knox MD Discharge Disposition: Home or Self Care 07/27/2025 Travel 07/20/2025 7:49 AM CDT - 07/20/2025 11:59 PM CDT Hospital Encounter [facility] [address] [place], [place] [id number] Margarito He MD Discharge Disposition: Home or Self Care 07/16/2025 Telephone [facility] [address] [place], [place] [id number] Clarice Chavez RN Appointment (Patient called to reschedule her appts for Wednesday for CODING ANALYST, 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 ) 07/13/2025 8:10 AM CDT - 07/13/2025 11:59 PM CDT Hospital Encounter [facility] [address] [place] [address] Margarito He MD Discharge Disposition: Home or Self Care 07/09/2025 7:29 AM CDT - 07/09/2025 11:59 PM CDT Hospital Encounter [facility] [address] [place], [place] [phone] Ashley Pa MD Discharge Disposition: Home or Self Care 07/06/2025 1:39 PM CDT - 07/06/2025 11:59 PM CDT Hospital Encounter [facility] [address] [place] [address] Yadira Wei MD Discharge Disposition: Home or Self Care 06/27/2025 9:14 AM CDT - 06/27/2025 11:59 PM CDT Hospital Encounter [facility] [address] [place] [address] Yadira Wei MD Discharge Disposition: Home or Self Care 06/27/2025 Telephone [facility] [address] [place] [phone] Clarice Chavez RN Question (LANNY Castro called to make sure patient is scheduled for growth ultrasound today with [facility]. ) 06/12/2025 1:32 PM CDT - 06/12/2025 11:59 PM CDT Hospital Encounter [address] [address] Krystal Pizarro APRN-CNP Discharge Disposition: Home or Self Care 06/12/2025 1:32 PM CDT - 06/12/2025 2:37 PM CDT Hospital Encounter [address] [address] Fabby Reddy MD 05/30/2025 1:30 PM CDT - 05/30/2025 11:59 PM CDT Hospital Encounter [facility] [address] [place] [id number] Yadira Wei MD Discharge Disposition: Home or Self Care 05/22/[address] [address] Allegra Johnson Appointment 05/17/2025 Telephone [facility] [address] [place] [address] Krystal Pizarro APRN-CNP Follow-up 05/02/2025 1:03 PM CDT - 05/02/2025 11:59 PM CDT Hospital Encounter [facility] [address] [place] [address] Yadira Wei MD Discharge Disposition: Home or Self Care 05/01/2025 Telephone [facility] [address] [place] [address] Clarice Chavez RN Appointment from Last 3 [...] on file Legal Sex Female 5:40 AM BAGGAGE AGENT Gender Identity Not on file Sexual Orientation [...] Description 08/03/2025 8:15 AM CDT Hospital Encounter [facility] [address] [place] [address] 08/06/2025 7:30 AM BAGGAGE AGENT Hospital Encounter [facility] [address] [place] [address] Health Maintenance Due Date Last Done Comments [...] 2025 06/14/2021, 05/24/2021 INFLUENZA VACCINE (#1) 2025 4, 07/23/2023, 07/04/2023, Additional history exists OB-GROUP B STREP SCREEN 07/12/2025 ZOSTER VACCINE (1 of 2) 2043 HIB VACCINE Aged Out No longer eligi ble based on patient's age to complete this topic MENINGOCOCCAL (Group B) VACCINE SHARED DECISION-MAKING Aged Out No longer eligible based on patient's age to complete this topic MENINGOCOCCAL GROUPS A/C/Y/W VACCINE Aged Out No longer eligible based on patient's age to complete this topic Respiratory Syncytial Virus (RSV) Vaccine Pt: or over 60 yrs (No Doses Required) Completed Procedures Procedure Name Priority Date/Time Associated Diagnosis Comments BIOPHYSICAL PROFILE W NST Routine 07/30/2025 7:47 AM CDT complicated by pre-existing type 2 diabetes in second trimester (HCC) Severe obesity due to excess calories affecting in second trimester (HCC) Encounter for ultrasound to assess growth (HCC) Encounter for other screening follow-up (HCC) 33 weeks gestation of (HCC) IMAGING/RADIOLOGY/XR AY RESULTS ORDER 07/25/2025 BIOPHYSICAL PROFILE W NST Routine 07/09/2025 8:05 AM CDT complicated by pre-existing type 2 diabetes in second trimester (HCC) Severe obesity due to excess calories affecting in second trimester (HCC) Encounter for ultrasound to assess growth (HCC) Encounter for other screening follow-up (HCC) 33 weeks gestation of (HCC) BIOPHYSICAL PROFILE W NST Routine 07/06/2025 2:45 PM CDT complicated by pre-existing type 2 diabetes in second trimester (HCC) Severe obesity due to excess calories affecting in second trimester (HCC) Encounter for ultrasound to assess growth (HCC) Encounter for other screening follow-up (HCC) 33 weeks gestation of (HCC) BIOPHYSICAL PROFILE W NST Routine 06/27/2025 9:51 [...] (HCC) Encounter for follow-up ultrasound of anatomy (HCC) Severe obesity due to excess calories affecting in third trimester (HCC) SONOGRAM - COMPLETE Routine 05/02/2025 1 :32 PM CDT complicated by pre-existing type 2 diabetes in second trimester (HCC) 24 weeks gestation of (HCC) Encounter for follow-up ultrasound of anatomy (HCC) Type 2 diabetes mellitus in , first trimester (HCC) Encounter for ultrasound to assess growth (HCC) Encounter for anatomic survey (HCC) from Last 3 Months Results * Biophysical Profile w NST (07/30/2025 7:47 AM CDT) Only the most recent of4 resultswithin the time period is included. Linked Results Indication ======== Pre-existing type 2 diabetes mellitus, in Obesity complicating , Class 3 - BMI of 40.0 or greater History ====== OB History 4. Para 2 [id number] 1. live 2015. Gest. age 39 w [...] 7 lb 8 oz EFW by Hadlock ([id number]) appropriate Growth Overview Exam date GA BPD [...] Pre-existing type 2 diabetes mellitus, in Procedures 81019: [place] [address]: Biophysical Profile W NST [facility] [employer] Anatomical Region Laterality Modality Other 07/30/2025 7:47 AM CDT Jeramie Lassiter MD [facility] ORDERABLES Edited Result - Final * IMAGING/RADIOLOGY/XRAY RESULTS ORDER (07/25/2025) Anatomical Region Laterality Modality Other 07/25/2025 Narrative 07/25/2025 Ordered by an unspecified provider. us Scanned Document IMAGING Final Result * ECHO COMPLETE CG (06/12/2025 2:37 PM CDT) MV E pk tatum 37.24 cm/s [facility] CV F UJI PACS MV A pk tatum 62.36 cm/s [facility] CV F U PACS Anatomical Region Laterality Modality Ultrasound 06/12/2025 1:55 PM CDT Narrative 06/12/2025 2:45 PM CDT Name: Yenni Francois Patient Exam Info Gender: Female Patient Status: O/P : 1995 Admit Date: 06/12/2025 Exam Date/Time: 06/12/2025 1:55 PM Site: [facility] Current Location: CARE EStudy Quality: Diagnostic quality Staff Ordering Provider: Krystal N Wienstroer Interpreting Physician: Fabby Reddy MD Caramel Candy Maker: Carmencita Guzman [facility] Study Info Procedure: ECHO COMPLETE [...] 06/12/2025 Exam Date/Time: 06/12/2025 1:55 PM Site: [facility] Current Location: CARE EStudy Quality: Diagnostic quality Staff Ordering Provider: Krystal Pizarro Interpreting Physician: Fabby Reddy MD Caramel Candy Maker: Carmencita Guzman [facility] Study Info Procedure: ECHO COMPLETE [...] MD on 06/12/2025 02:45 PM Krystal Pizarro SENIOR PRODUCTION SUPERVISOR-FACE HARDENER ECHO CUPID Fin al Result * Sonogram - Complete (05/30/2025 2:16 PM CDT) Only the most recent of2 resultswithin the time period is included. Linked Results Indication ======== Pre-existing type 2 diabetes mellitus, in Obesity complicating , Class 3 - BMI of 40.0 or greater Incomplete anatomy History ====== OB History 4. Para 2 [id number] 1. live 2015. Gest. age 39 w [...] 3 lb 5 oz EFW by Hadlock ([id number]) appropriate Growth Overview = Exam date GA [...] appropriate. The amniotic fluid volume is normal CODING ANALYST consult echo scheduled for 06/12 Follow-up ======== In 4 weeks begin weekly BPP with 2x weekly NST and assess growth Coding ====== Diagnoses Z36.2: Encounter for other screening follow-up O99.213, E66.813: Obesity complicating , Class 3 - BMI of 40.0 or greater O24.113: Pre-existing type 2 diabetes mellitus, in Procedures 16898: US Preg Uterus Follow Up [facility] [employer] PACS Anatomical Region Laterality Modality Other 05/30/2025 2:16 PM CDT Jeramie Lassiter MD [facility] ORDERABLES Edited Result - Final from Last 3 Months Insurance [facility]
--- OUTSIDE RECORDS SUMMARY | 2025-07-31 00:38 | XMS_ITS | Clinical Summary ---
Author Organization [facility] Address [facility] [place] [address] Care Team Providers Care Taxation Inspector Name Role Phone MiloJoyce sarabia LANNY Primary Care Provider [phone] Allergies Active Allergy Reactions Criticality Noted Date [...] 87.5 kg (193 lb) 09/01/2016 11:58 AM COATER Height 154.9 cm (5' 1) 09/01/2016 11:58 AM COATER Body Mass Index 36.47 09/01/2016 11:58 AM COATER Plan of Treatment Health Maintenance Due Date [...] complete this topic Insurance MEDICAID Care Teams Taxation Inspector Relationship Specialty Start Date End Date Joyce Pedraza NP [address] [place] [address] PCP - General NURSE PRACTITIONER 01/27/19
--- OUTSIDE RECORDS SUMMARY | 2025-07-31 00:38 | XMS_ITS | Encounter Summary ---
Author Organization [facility] Healthcare Address [address] [place] [address] Care Team Providers Care Residence Supervisor Name Role Phone Phillip Coker MD Primary Care Provider [phone] Antonio Baldwin Primary Care Provider [phone] Reason for Visit * Reason Onset Date Comments No Show 01/15/2022 I called patient and she states that she will be in attendance tomorrow for her next scheduled visit. 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
--- OUTSIDE RECORDS SUMMARY | 2025-07-31 00:38 | XMS_ITS | Encounter Summary ---
Author Organization [facility] Care Team Providers Care Furniture Stainer Name Role Phone Phillip Coker MD Primary Care Provider [phone] Antonio Baldwin Primary Care Provider [phone] Encounter Details Date Type Department Care Team (Latest Contact Info) Description 10/28/2018 Orders Only [facility] ProviderPérez MD [address] [place] [id number] Social History Tobacco Use Types Packs/Day Years Used Date Smoking Tobacco: Never Assessed Comments Unknown Sex and Gender Information Value Date Recorded Sex Assigned at Not on file Legal Sex Female 11:27 PM LUNCH COOK Gender Identity Female 08/08/2021 9:31 AM CDT Sexual Orientation Straight 08/08/2021 9: 31 AM CDT documented as of this encounter Plan of Treatment Not on file documented as of this encounter Procedures Procedure Name Priority Date/Time Associated Diagnosis Comments CARDIOLOGY REPORT 10/28/2018 12: 00 AM LUNCH COOK documented in this encounter Results * CARDIOLOGY REPORT (10/28/2018 12:00 AM LUNCH COOK) Anatomical Region Laterality Modality Other Narrative 10/28/2018 12:00 AM LUNCH COOK Ordered by an unspecified provider. Historical Provider [facility] MARTHA HARDING Final Result documented in this encounter Visit Diagnoses Not on filedocumented in this encounter Additional Health Concerns Infection Onset Date Last Indicated Resolved Time COVID: Suspected 09/01/2021 09/01/2021 09/02/2021 1:03 AM LUNCH COOK COVID: Suspected 10/01/2021 10/01/2021 10/02/2021 4:52 AM LUNCH COOK COVID19 10/01/2021 10/01/2021 10/15/2021 3:07 AM LUNCH COOK COVID: Recovered Comment:Added based on recent COVID infection. 10/15/2021 10/20/2021 02/12/2022 3:05 AM C DT COVID: Suspected 12/11/2021 12/11/2021 12/12/2021 12:07 AM LUNCH COOK COVID: Suspected 06/21/2023 06/21/2023 06/21/2023 3:30 PM CDT COVID: Suspected 06/21/2023 06/21/2023 06/21/2023 6:32 PM CDT documented as of this encounter Care Teams Furniture Stainer Relationship Specialty Start Date End Date Phillip Coker MD PCP - General 12/30/18 06/30/22 Antonio Baldwin PA [address] [facility] [address] [address] PCP - General Family Medicine 07/01/22 documented as of this encounter
[2025-07-31 10:31] LABS: Hematocrit 29.1 % (37.0-47.0); Hemoglobin 9.1 g/dL (12.0-15.0); Immature Granulocyte Percent A 0.3 % (0-0.5); Lymphocytes Absolute Auto 1.21 K/mm3 (0.9-3.2); Mean Corpuscular HGB Conc 31.3 g/dl (32-36); Mean Corpuscular Hemoglobin 22.2 pg (26-34); Mean Corpuscular Volume 71.0 fl (80-100); Nucleated Red Blood Cells Absolute Auto 0.000 K/mm3 (0.0-0.012); Nucleated Red Blood Cells Perc 0.0 % (0.0-0.2); Platelet Count Result 336 k/mm3 (150-375); Red Blood Count 4.10 M/mm3 (4.2-5.4); White Blood Count 8.7 K/mm3 (4.5-10.0)
[2025-07-31] MEDS: LACTATED RINGERS 1,000 ML 125 ML IV CONT (10:33)
[2025-07-31] MEDS: ACETAMINOPHEN 500 MG TABLET 1000 MG PO ×2 (10:33→18:16)
[2025-07-31 10:42] LABS: Alanine Aminotransferase 11 U/L (6-35); Albumin Level 3.5 g/dL (3.5-5.1); Alkaline Phosphatase 131 U/L (38-126); Anion Gap 8 mmol/L (4-12); Aspartate Amino Transferase 20 U/L (14-36); Bilirubin,Total 0.2 mg/dL (0.2-1.3); Blood Urea Nitrogen 7 mg/dL (7-17); Calcium 8.6 mg/dL (8.4-10.2); Carbon Dioxide 20 mmol/L (22-30); Chloride 107 mmol/L (98-107); Estimated Glomerular Filt Rate > 60; Glucose 103 mg/dL (65-110); Potassium 3.6 mmol/L (3.4-5.0); Sodium 135 mmol/L (137-145); Total Protein 6.5 g/dL (6.3-8.2)
[2025-07-31 10:52] LABS: Acanthocytes Occasional; Anisocytosis 1+; Burr Cells 1+; Microcytosis 1+ (NORMAL); Schistocytes None Seen; Tear Drop Cells Occasional
--- NOTE | 2025-07-31 11:05 | PM.IMHP ---
H&P: HPI History of Present Illness Date/Time: 07/31/25 11:05 Chief Complaint: Repeat section, gestational hypertension Narrative: Patient is a 30 y/o at 37 weeks with gestational hypertension. She was recommended for delivery. PNC significant for prior section. She has opted for repeat section. She requests permanent sterilization. Class B diabetes- She has been followed by [facility]. h/o Non compliance with BS monitoring this did improve. Review of Systems Review of Systems: All systems reviewed & are unremarkable except as noted in HPI and below Constitutional: Constitutional: Reports no additional constitutional complaints and Denies headache(s) Eyes: Eyes: Denies spots in vision ENT: Reports system reviewed and no additional complaints, except as documented and Denies headache(s) Cardiovascular: Cardiovascular: Denies chest pain and Denies dyspnea Respiratory: Respiratory: Denies dyspnea Gastrointestinal: Gastrointestinal: Reports no additional gastrointestinal complaints Genitourinary: Genitourinary: Reports amenorrhea Musculoskeletal: Musculoskeletal: Reports no additional musculoskeletal complaints Integumentary/Breasts: Skin/Breast: Denies breast mass and Denies rash Neurologic: Denies headache(s) Psychiatric: Psychiatric: Reports no additional psychiatric complaints [facility] Past Medical History Medical History Diabetes History of miscarriage Allergies Headache GERD (gastroesophageal reflux disease) Pneumonia Surgical History Surgical History (Updated 08/02/25 @ 12:43 by Jeramie Ashley MD) History of section History of facial surgery lip surgery Family History Family History Other Cancer Diabetes mellitus Heart disease Hypertension Thyroid disorder Social History Social History Smoking status: Never smoker Second hand tobacco smoke exposure: No Alcohol intake: never Substance use: never Substance use type: does not use Do You Feel Safe in your Home?: Yes Lack of Transportation: No Lack of Food: Never True Current Housing: I Have Housing Concerned About Future Housing: No Difficulty Paying Gas/Electric Bills: No Difficulty Paying for Meds: No Currently Unemployed: No Education: Trade/Vocational Certificate Difficulty w/ Childcare or Family Care: No Gender identity (if verbalized by the patient): Female Sexual Orientation (if Verbalized by the Patient): Straight or Heterosexual Spiritual care concerns: No Meds Home Medications and Allergies Home Medications ?Medication ?Instructions ?Recorded ?Confirmed ?Type ondansetron HCl 4 mg tablet 4 mg PO Q6H PRN nausea and 02/06/25 07/30/25 Rx vomiting #20 tabs insulin glargine 100 unit/mL 26 unit subcut QAM 04/07/25 07/30/25 History subcutaneous solution (Lantus U-100 Insulin) insulin glargine 100 unit/mL 26 unit subcut QPM 04/07/25 07/30/25 History subcutaneous solution (Lantus U-100 Insulin) insulin lispro 100 unit/mL 18 unit subcut .qacbreakfast 04/07/25 07/30/25 History subcutaneous cartridge (Humalog U-100 Insulin) insulin lispro 100 unit/mL 18 unit subcut QACLUNCH 04/07/25 07/30/25 History subcutaneous cartridge (Humalog U-100 Insulin) vitamins 30 30 mg iron-10 1 cap PO DAILY #30 caps 05/25/25 07/30/25 Rx mg iron-folic acid 1 mg-om3 capsule Dexcom G7 Sensor (blood-glucose #1 ea 06/05/25 07/30/25 Rx sensor) insulin lispro 100 unit/mL 18 unit subcut QACDINNER 07/16/25 07/30/25 History subcutaneous pen Allergies Allergy/AdvReac Type Severity Reaction Status Date / Time Sulfa (Sulfonamide Allergy Mild Hives Verified 07/31/25 10:46 Antibiotics) Vital Signs Vital Signs - 24 hr 07/31/25 10:25 07/31/25 10:31 07/31/25 10:46 Pulse Rate 72 68 74 Blood Pressure 120/87 121/76 119/78 07/31/25 11:01 Pulse Rate 70 Blood Pressure 123/81 Exam Const: General: no acute distress Eyes: General: appearance normal, both eyes and all related structures Resp: Effort & Inspection: normal respiratory effort Cardio: Rate: regular rate GI: Other: Gravid no fundal tenderness no right upper quadrant pain Skin: General skin exam: no rashes or lesions noted Neuro: Cognition (Neuro): normal cognition Extrem: General: normal to inspection Psych: Mental Status: mental status grossly normal H&P: Results Labs Labs: Short CBC 07/31/25 Range/Units 10:06 WBC 8.7 (4.5-10.0) K/mm3 Hgb 9.1 L (12.0-15.0) g/dL Hct 29.1 L (37.0-47.0) % Plt Count 336 (150-375) k/mm3 BMP 07/31/25 10:06 Sodium 135 L Potassium 3.6 Chloride 107 Carbon Dioxide 20 L BUN 7 Creatinine 0.47 L Glucose 103 Calcium 8.6 Liver Function 07/31/25 Range/Units 10:06 Total Bilirubin 0.2 (0.2-1.3) mg/dL AST 20 (14-36) U/L ALT 11 (6-35) U/L Alkaline Phosphatase 131 H (38-126) U/L Albumin 3.5 (3.5-5.1) g/dL Assessment and Plan Assessment and plan (1) Gestational hypertension: Code(s): O13.9 - Gestational [-induced] hypertension without significant proteinuria, unspecified trimester Status: Acute Assessment and Plan: no signs or symptoms of severe. Delivery recommended. (2) Pregestational diabetes mellitus, modified White class B: Code(s): O24.319 - Unspecified pre-existing diabetes mellitus in , unspecified trimester Status: Acute (3) Request for sterilization: Code(s): Z30.2 - Encounter for sterilization Status: Acute Assessment and Plan: She has been counseled regarding risks benefits and other nonpermanent options and requests to proceed with sterilization. (4) History of section: Code(s): Z98.891 - History of uterine scar from previous surgery Status: Acute Assessment and Plan: patient opts for repeat section. She has been counseled regarding risks benefits and agrees to proceed with repeat section.
[2025-07-31 11:23] LABS: Syphilis IgG/IgM Antibody Non-Reactive (Nonreactive)
--- NOTE | 2025-07-31 11:49 | WPDANESEPPF ---
Anes - Initial Pre Proc Eval Procedure: Operation Date: 07/31/25 12:00 Proposed Procedures p Repeat Section with Bilateral Tubal Ligation - Jeramie Ashley MD Date/Time: 07/31/25 11:49 Surgeon: Jeramie Ashley MD Pre Op Diagnosis: repeat c/s Patient Data Age: 30 Gender: F Height: 1.6 m Weight: 101.5 kg Last Vital Signs Pulse 80 07/31/25 11:46 BP 135/85 07/31/25 11:46 Allergies Allergy/AdvReac Type Severity Reaction Status Date / Time Sulfa (Sulfonamide Allergy Mild Hives Verified 07/31/25 10:46 Antibiotics) Home Medications ?Medication ?Instructions ?Recorded ?Confirmed ?Type ondansetron HCl 4 mg tablet 4 mg PO Q6H PRN nausea and 02/06/25 07/30/25 Rx vomiting #20 tabs insulin glargine 100 unit/mL 26 unit subcut QAM 04/07/25 07/30/25 History subcutaneous solution (Lantus U-100 Insulin) insulin glargine 100 unit/mL 26 unit subcut QPM 04/07/25 07/30/25 History subcutaneous solution (Lantus U-100 Insulin) insulin lispro 100 unit/mL 18 unit subcut .qacbreakfast 04/07/25 07/30/25 History subcutaneous cartridge (Humalog U-100 Insulin) insulin lispro 100 unit/mL 18 unit subcut QACLUNCH 04/07/25 07/30/25 History subcutaneous cartridge (Humalog U-100 Insulin) vitamins 30 30 mg iron-10 1 cap PO DAILY #30 caps 05/25/25 07/30/25 Rx mg iron-folic acid 1 mg-om3 capsule Dexcom G7 Sensor (blood-glucose #1 ea 06/05/25 07/30/25 Rx sensor) insulin lispro 100 unit/mL 18 unit subcut QACDINNER 07/16/25 07/30/25 History subcutaneous pen Laboratory Tests 07/31/25 07/31/25 10:06 10:19 WBC 8.7 K/mm3 (4.5-10.0) RBC 4.10 L M/mm3 (4.2-5.4) Hgb 9.1 L g/dL (12.0-15.0) Hct 29.1 L % (37.0-47.0) MCV 71.0 L fl (80-100) MCH 22.2 L pg (26-34) MCHC 31.3 L g/dl (32-36) RDW 17.3 H % (11.5-14.5) Plt Count 336 k/mm3 (150-375) MPV 9.9 fl (7.4-10.4) Immature Gran % (Auto) 0.3 % (0-0.5) Neut % (Auto) 80.6 H % (45.5-73.1) Lymph % (Auto) 13.9 L % (18.3-44.2) Sebastian % (Auto) 4.8 % (2.6-8.5) Eos % (Auto) 0.2 % (0-4.4) Baso % (Auto) 0.2 % (0.2-1.2) Lymph # (Auto) 1.21 K/mm3 (0.9-3.2) Sebastian # (Auto) 0.4 K/mm3 (0.1-0.6) Eos # (Auto) 0.0 K/mm3 (0-0.3) Baso # (Auto) 0.0 K/mm3 (0.0-0.1) Abs Immat Gran (auto) 0.03 K/mm3 (0.00-0.031) Absolute Neuts (auto) 7.0 H K/mm3 (1.3-6.7) Absolute Nucleated RBC 0.000 K/mm3 (0.0-0.012) Band Neutrophils % Not Reportable Nucleated RBC % 0.0 % (0.0-0.2) Platelet Estimate Adequate (Adequate) Anisocytosis 1+ Microcytosis 1+ (NORMAL) Tear Drop Cells Occasional Jonathan Cells 1+ Acanthocytes (Spur) Occasional Schistocytes None seen Sodium 135 L mmol/L (137-145) Potassium 3.6 mmol/L (3.4-5.0) Chloride 107 mmol/L (98-107) Carbon Dioxide 20 L mmol/L (22-30) Anion Gap 8 mmol/L (4-12) BUN 7 mg/dL (7-17) Creatinine 0.47 L mg/dL (0.7-1.0) Estim Creat Clear Calc Not Reportable Estimated GFR > 60 (59 - ) Glucose 103 mg/dL (65-110) Calcium 8.6 mg/dL (8.4-10.2) Total Bilirubin 0.2 mg/dL (0.2-1.3) AST 20 U/L (14-36) ALT 11 U/L (6-35) Alkaline Phosphatase 131 H U/L (38-126) Total Protein 6.5 g/dL (6.3-8.2) Albumin 3.5 g/dL (3.5-5.1) Syphilis IgG/IgM Ab Non-reactive (Nonreactive) Blood Type O Positive Antibody Screen Negative Patient hx anesthesia problems: none Family hx anesthesia problems: none Results Review: All pre-operative results and documents have been reviewed as part of the pre-operative evaluation. FOR[facility]LY [facility] Past Medical History Medical History Diabetes History of miscarriage Allergies Headache GERD (gastroesophageal reflux disease) Pneumonia Surgical History Surgical History History of section History of facial surgery lip surgery Family History Family History Other Cancer Diabetes mellitus Heart disease Hypertension Thyroid disorder Social History Social History Smoking status: Never smoker Second hand tobacco smoke exposure: No Alcohol intake: never Substance use: never Substance use type: does not use Do You Feel Safe in your Home?: Yes Lack of Transportation: No Lack of Food: Never True Current Housing: I Have Housing Concerned About Future Housing: No Difficulty Paying Gas/Electric Bills: No Difficulty Paying for Meds: No Currently Unemployed: No Education: Trade/Vocational Certificate Difficulty w/ Childcare or Family Care: No Gender identity (if verbalized by the patient): Female Sexual Orientation (if Verbalized by the Patient): Straight or Heterosexual Spiritual care concerns: No Anes - Eval Final PreProcedure Day of Procedure 07/31/25 11:49 Patient weight: obese Lungs: normal air movement Airway: Mallampati scale class II Neurological: alert and oriented Last oral intake: >/= 8 hours ASA classification: III Emergent: no Anesthetic plan: proceed Anesthesia type and monitoring: regional spinal and standard monitoring Results Review: All pre-operative results and documents have been reviewed as part of the pre-operative evaluation. BMI 39, gest DM, for repeat C section. Plts nml, fsbs 103 on BMP today. Informed Consent: The patient's anesthetic plan and its attendant risks and benefits were discussed with the patient/family/POA. Questions were solicited and answers provided to the satisfaction of the patient/family/POA.
[2025-07-31] MEDS: FAMOTIDINE 20 MG/2 ML VIAL IV PUSH (11:54)
[2025-07-31] MEDS: ONDANSETRON INJ 4 MG/2 ML VIAL IV PUSH (11:54)
--- NOTE | 2025-07-31 12:34 | S_PTH ---
PATIENT: Yenni Francois LOC: ANHOB2 U#:[id number] AGE/SX: 30/F ROOM: 284 RE07/31/[address]: Jeramie Ashley MD : 1995 BED: 00 DIS: 08/02/2025 SPEC #: [id number] RECD: 08/01/25 06:50 STATUS: ADELAIDA REQ #: [id number] KATY: 07/31/25 12:[address]: Jeramie Ashley DEPT: [facility] Surgical RECD BY: Erica Garcia ENTERED: 08/01/25 06:51 SP TYPE: Surgical OTHR DR: Antonio Baldwin, PA Tissues: A - Placenta B - Fallopian Tube Bilateral Procedures: Gross and Microscopic Level 2 Hematoxylin and Eosin Stain Gross and Microscopic Level 5
--- NOTE | 2025-07-31 13:28 | P.PCNOB_ITS ---
OB - Delivery Note Procedure Delivery date: 07/31/25 Pre-op diagnosis: Diabetes Mellitus (Class B) and Other ( gestational hypertension) Post-op Diagnosis: Same Induction method: None Prior to decision for section, ACOG/SM labor guidelines were considered and discussed with the patient and staff. Decision made to proceed with the section.: Yes Procedure Performed: Repeat and Tubal Ligation Surgeon: Jeramie Ashley MD Anesthesia type: Spinal Description of Procedure/Findings: findings - female infant, ROT presentation, with nuchal cord and loose cord around the arm, 7 lb 7 oz, Apgars 8 in 10 normal fallopian tubes mild adhesions of the fimbria to the ovary and the to to the broad ligament, normal appearing ovaries. After informed consent, risks and benefits of the procedure was discussed with the patient. The patient was taken to the operating room where she was placed in the dorsal lithotomy position with leftward tilt. After the spinal anesthesia was placed and found to be adequate, she was then prepped and draped in the usual sterile fashion. A Pfannenstiel skin incision was made with a scalpel and carried through to the underlying layer of fascia. The fascia was then nicked in the midline, extending bilaterally. The fascia was dissected off the rectus muscles. The rectus muscles were in the midline, and peritoneum was identified and entered bluntly. The pelvic organs were visualized. The bladder blade was then inserted. The vesicouterine peritoneum was identified and entered sharply with Metzenbaum scissors and extended bilaterally and then the bladder flap was created digitally. The low transverse uterine incision was then made with the scalpel and extended with bilateral index fingers in a crescent-shaped fashion. The head was delivered, the nose and mouth suctioned with the bulb, the loose nuchal cord was manually reduced and the rest of the was delivered. The cord was wrapped around the arm was manually reduced. The cord was clamped twice and cut. The was then handed off to the awaiting pediatric staff. The placenta was then delivered manually. The uterine cavity was sponge curetted. The uterus was then exteriorized. The uterine incision was then closed with 0 v icryl in a running locked fashion. A second layer of 0 vicryl closed in interrupted [id number] fashion. Hemostasis was noted. The right and left fallopian tube or ligated from the broad ligament on both sides. The posterior cul-de-sac was irrigated. The uterus was then returned to the abdomen. Bilateral gutters were cleared off all clots and debris. The uterine incision was noted to be hemostatic. The muscle bellies were inspected and noted to be hemostatic. The fascia was closed in a running fashion with 0 Vicryl. The subfascial layer was irrigated and noted to be hemostatic. The subcutaneous layer was then approximated with 3-0 Vicryl. The skin was closed with Ensorb thalia and Aquacel dressing was used. All instruments, needle, and lap counts were correct x3. The patient was taken to the recovery room in stable condition. Estimated Blood Loss: 275 Drains: No Packing: No Pathology: Yes ( fallopian tubes, and left 2. Placenta and cord) Complications: No immediate complications Condition: Stable Disposition: Floor [place] Baby Date of : 07/31/25 Gestational Age by Date: 37 gender: Female Weight (pounds): 7 Weight (ounces): 7 presentation: vertex (ROT) position: Right Occiput Transverse Placenta delivery description: Manual Removal Cord Vessel Description: 3 Vessels, Nuchal Cord, Loose and Around Body (arm) score one minute: 8 score five minutes: 10
[2025-07-31] MEDS: KETOROLAC 15 MG/ML VIAL (*BKC) IV PUSH ×2 (14:11→18:16)
[2025-07-31] MEDS: OXYTOCIN 30 UNITS/NS 500 ML 30 UNITS/500 ML BAG 125 UNITS IV CONT (14:21)
--- NOTE | 2025-07-31 16:04 | OBPPTRN ---
Patient transferred to post room #284 via stretcher. Support person present. Oriented to unit, room, information board, rooming in, admission packet and security measures. Patient verbalizes understanding.
[2025-07-31] MEDS: DOCUSATE SODIUM 100 MG CAPSULE PO (18:15)
[2025-07-31] MEDS: SIMETHICONE 80 MG TAB.CHEW PO (18:15)
[2025-07-31] MEDS: DEXTROSE 5%/0.45% SOD CHL 1,000 ML 125 ML IV CONT (19:15)
[2025-08-01] VITALS (7 sets, daily range): BP systolic 114–148; BP diastolic 72–87; PULSE 72–86; RESP 14–18; TEMP 36.6–37.1; O2SAT 98–100
[2025-08-01] MEDS: KETOROLAC 15 MG/ML VIAL (*BKC) IV PUSH ×2 (00:34→05:43)
[2025-08-01] MEDS: ACETAMINOPHEN 500 MG TABLET 1000 MG PO ×5 (00:35→22:28)
[2025-08-01] MEDS: DEXTROSE 5%/0.45% SOD CHL 1,000 ML 125 ML IV CONT (02:45)
[2025-08-01 04:02] LABS: Hematocrit 22.0 % (37.0-47.0); Immature Granulocyte Percent A 0.4 % (0-0.5); Lymphocytes Absolute Auto 1.33 K/mm3 (0.9-3.2); Mean Corpuscular HGB Conc 30.9 g/dl (32-36); Mean Corpuscular Hemoglobin 22.2 pg (26-34); Mean Corpuscular Volume 71.9 fl (80-100); Nucleated Red Blood Cells Absolute Auto 0.000 K/mm3 (0.0-0.012); Nucleated Red Blood Cells Perc 0.0 % (0.0-0.2)
[2025-08-01 04:16] LABS: Anisocytosis 1+
[2025-08-01 04:17] LABS: Burr Cells 1+; Ovalocytes 1+; Schistocytes None Seen
[2025-08-01 04:50] LABS: White Blood Count 12.9 K/mm3 (4.5-10.0)
[2025-08-01 04:51] LABS: Hemoglobin 8.5 g/dL (12.0-15.0); Platelet Count Result 303 k/mm3 (150-375); Red Blood Count 3.84 M/mm3 (4.2-5.4)
--- NOTE | 2025-08-01 07:41 | PC.NURSE ---
Per Dr Ashley, patient needs BS monitored fasting in the morning and then 1 hour after eating daily. Patient has dexcom monitor and okayed taking glucose readings from monitor.
--- NOTE | 2025-08-01 07:44 | PC.NURSE ---
08/01 0725 fasting blood glucose is 96
[2025-08-01] MEDS: DOCUSATE SODIUM 100 MG CAPSULE PO ×2 (08:37→17:26)
[2025-08-01] MEDS: SIMETHICONE 80 MG TAB.CHEW PO ×2 (08:37→17:26)
[2025-08-01] MEDS: MULTIVIT/MIN/PREN/FOL AC/IRON TABLET 1 TAB PO (08:37)
--- NOTE | 2025-08-01 09:51 | WPDANLDPN2 ---
Anes-Prog Note L&D Date/Time: 08/01/25 09:51 Comfortable throughout: section Neuraxial method: spinal Epidural/Spinal procedure site: clean & non-tender Neuro status: Neuro function grossly intact. Cardiovascular status: normal Respiratory status: normal Airway patency: baseline Mental status: baseline Post-Op hydration status: normal Vital Signs: Last Vital Signs Temp 36.8 C 08/01/25 07:10 Pulse 73 08/01/25 07:10 Resp 16 08/01/25 07:10 BP 121/79 08/01/25 07:10 Pulse Ox 98 08/01/25 07:10 O2 Del Method Room Air 07/31/25 16:04 Pain score (VAS): 2 I/O: Intake & Output 07/31/25 08/01/25 08/01/25 23:59 07:59 15:59 Intake Total 240 1900 Output Total 50 1025 Balance 190 875 Post-procedural complaints: none Patient feedback: Patient satisfied with anesthetic care.
--- NOTE | 2025-08-01 09:52 | WPDANLDNPN2 ---
Anes-Prog Note L&D-Neuraxial Date/Time: 08/01/25 09:52 Neuraxial medications: intrathecal PF morphine Opiod-related complaints: none Patient feedback: Patient satisfied with post-operative pain management.
--- NOTE | 2025-08-01 10:07 | PC.NURSE ---
Blood Glucose 140
[2025-08-01] MEDS: IBUPROFEN 600 MG TABLET PO ×3 (11:35→22:28)
--- NOTE | 2025-08-01 13:50 | PC.NURSE ---
Blood Glucose 132
--- NOTE | 2025-08-01 14:22 | P.PNOB_ITS ---
OB - PN: Subj Subjective Date/time seen: 08/01/25 14:22 Patient comments: pain well controlled and tolerating diet [place] baby status: doing well OB - PN: Obj Data Labs 08/01/25 03:48 07/31/25 10:06 Labs: Laboratory Results - last 24 hr 07/31/25 08/01/25 19:13 03:48 WBC 12.9 H RBC 3.84 L Hgb 8.5 L Hct 22.0 L MCV 71.9 L MCH 22.2 L MCHC 30.9 L RDW 17.4 H Plt Count 303 MPV 10.4 Immature Gran % (Auto) 0.4 Neut % (Auto) 79.2 H Lymph % (Auto) 13.3 L [place] % (Auto) 6.5 Eos % (Auto) 0.4 Baso % (Auto) 0.2 Lymph # (Auto) 1.33 [place] # (Auto) 0.7 H Eos # (Auto) 0.0 Baso # (Auto) 0.0 Abs Immat Gran (auto) 0.04 H Absolute Neuts (auto) 7.9 H Absolute Nucleated RBC 0.000 Band Neutrophils % Not Reportable Nucleated RBC % 0.0 Platelet Estimate Adequate Anisocytosis 1+ Ovalocytes 1+ Langley Cells 1+ Schistocytes None seen POC Capillary Glucose 104 OB - PN A/P Time Spent With Patient Time: Total time spent is greater than 50% in coordination of care (as documented) at patient's floor/unit and/or counseling patient: Exam 2 Const: General: comfortable and no acute distress Resp: Effort & Inspection: normal respiratory effort Auscultation: clear to auscultation bilaterally Cardio: Rate: regular rate GI: Other: dressing intact clean and dry Neuro: General: patient oriented x3 Extrem: General: normal to inspection (2+ edema bilat nontender) and no calf tenderness Psych: Mental Status: mental status grossly normal Affect: normal affect
[2025-08-01] MEDS: IRON SUCROSE COMPLEX 400 MG in SODIUM CHLORIDE 0.9% IV 250 ML 108 MG IVPB (16:15)
--- NOTE | 2025-08-02 01:51 | PC.NURSE ---
Per Krystal Stephens RN, Dr. Ashley to order sliding scale if blood glucose >140. Blood glucose 139 per patient report at 1945.
[2025-08-02] MEDS: ACETAMINOPHEN 500 MG TABLET 1000 MG PO ×2 (04:05→10:10)
[2025-08-02] MEDS: IBUPROFEN 600 MG TABLET PO ×2 (04:05→10:10)
[2025-08-02 04:41] VITALS: BP 140/91
--- NOTE | 2025-08-02 07:30 | PC.NURSE ---
Fasting Blood Glucose 95
[2025-08-02 08:25] VITALS: BP 128/83; PULSE 76; RESP 16; TEMP 36.9; O2SAT 99
[2025-08-02] MEDS: MULTIVIT/MIN/PREN/FOL AC/IRON TABLET 1 TAB PO (09:10)
[2025-08-02] MEDS: SIMETHICONE 80 MG TAB.CHEW PO ×2 (09:10→13:00)
[2025-08-02] MEDS: DOCUSATE SODIUM 100 MG CAPSULE PO (09:10)
[2025-08-02 10:35] VITALS: BP 137/79; PULSE 88; RESP 16; TEMP 37.4; O2SAT 98
--- NOTE | 2025-08-02 12:51 | P.PNOB_ITS ---
OB - PN: Subj Subjective Date/time seen: 08/02/25 12:51 Interval history: she denies any severe headache scotomata or right upper quadrant pain. She is tolerating regular food she is ambulating well denies any leg pain lochia is light. Has adequate pain control with medications. Patient comments: pain well controlled and tolerating diet [place] baby status: doing well OB - PN: Obj Data Labs 08/01/25 03:48 07/31/25 10:06 OB - PN A/P Assessment and Plan (1) History of section: Code(s): Z98.891 - History of uterine scar from previous surgery Status: Acute Assessment and Plan: postop day 2. Doing well. Adequate pain control ambulating. Anticipating discharge today. She had labile blood pressures yesterday but they are improved this morning if they remain within normal then we will discharge later today. (2) Pregestational diabetes mellitus, modified White class B: Code(s): O24.319 - Unspecified pre-existing diabetes mellitus in , unspecified trimester Status: Acute Assessment and Plan: Sugars are stable no significant hyper glycemia will continue to monitor. Time Spent With Patient Time: Total time spent is greater than 50% in coordination of care (as documented) at patient's floor/unit and/or counseling patient: Review of Systems 2 Musculoskeletal: Comments: Extremity- 2+ edema bilateral nontender lower extremity Exam 2 Const: General: comfortable and no acute distress Resp: Effort & Inspection: normal respiratory effort GI: Other: decreased bowel sounds, mildly distended, incision no drainage or erythema, intact Psych: Mental Status: mental status grossly normal
--- NOTE | 2025-08-02 12:59 | PM.OBDSVD ---
DS: Admitting Diagnosis Discharge Date August 02, 2025 Admitting Diagnosis 1. Gestational hypertension 2. Class B diabetes. 3. Undesired fertility request sterilization DS: Discharge Diagnosis Discharge Diagnosis (1) Delivery by section: Status: Acute (2) History of section: Code(s): Z98.891 - History of uterine scar from previous surgery Status: Acute (3) Request for sterilization: Code(s): Z30.2 - Encounter for sterilization Status: Acute (4) Pregestational diabetes mellitus, modified White class B: Code(s): O24.319 - Unspecified pre-existing diabetes mellitus in , unspecified trimester Status: Acute OB - DS: Summary Hospital Course Hospital Course: she was admitted for planned repeat section which was recommended for delivery due to gestational hypertension without severe symptoms. She also had request for sterilization. She had uncomplicated repeat section and bilateral salpingectomy. She did well . She had adequate pain control on post day 1 she was tolerating regular food ambulating without difficulty. On postop day 1 she had some labile elevated blood pressures no severe range blood pressures denied any headache scotomata right upper quadrant pain. Blood pressures did improve on post op day 2. Baby was doing well. OB Procedures : NST, PIH Mgmt and Ultrasound OB Procedures Intrapartum: OB Procedures: : None Peripartum Data Infant Delivery Method: Section Procedures: Procedures Operation Date: 07/31/25 12:00 Actual Procedure Side Surgeon p Repeat Section with Bilateral Tubal Ligation Юлия Ashley MD Time Spent with Patient Time attestation: Total time spent providing and/or coordinating discharge services: DS: Data Data Completed and Pending Completed studies during hospitalization: Pending at discharge 07/31/25 12:34 Surgical [PTH] Routine Surgical [PTH] Routine Discharge Plan Discharge Attending physician on discharge: Jeramie Ashley Consulting providers: Cesar Sahni Discharging Clinician: Jeramie Ashley Patient Disposition: Home Activity: may shower, no driving and pelvic rest Diet: diabetic Patient Instructions: Antibiotic Form Patient Language: Irish Stand Alone Forms: General Discharge Information Follow-up/Referrals: Jeramie Ashley MD [Physician, TOOL TECHNICIAN] - 1 Week Referral Note: She needs to call for appointment for one week for removal of dressing and incision check. Discharge Medications: New oxycodone 5 mg Tablet 5 mg PO Q4H PRN (Reason: Pain Rated 4-6) Qty: 20 0RF docusate sodium 100 mg Capsule 100 mg PO BID Qty: 60 0RF ibuprofen 600 mg Tablet 600 mg PO Q6HR Qty: 30 0RF polysaccharide iron complex 150 mg iron Capsule 150 mg PO BIDWM Qty: 60 0RF Discontinued insulin glargine [Lantus U-100 Insulin] 100 unit/mL solution 26 unit subcut QAM insulin glargine [Lantus U-100 Insulin] 100 unit/mL solution 26 unit subcut QPM Humalog U-100 Insulin 100 unit/mL cartridge 18 unit subcut QACLUNCH Humalog U-100 Insulin 100 unit/mL cartridge 18 unit subcut .qacbreakfast insulin lispro 100 unit/mL insulin pen 18 unit SUBCUT QACDINNER ondansetron HCl 4 mg tablet 4 mg PO Q6H PRN (Reason: nausea and vomiting) Qty: 20 0RF No Action PNV [id number] 30 mg iron-10 mg iron-1 mg capsule 1 cap PO DAILY Qty: 30 5RF Rx Instructions: 1 po daily (DME) Dexcom G7 Sensor Device See Rx Instructions .MEDSUPPLY Qty: 1 4RF Rx Instructions: Apply sensor for 10 days Date of admission: 07/31/25 09:25 Primary Care Provider: Denny,Antonio Admitting Provider: Jeramie Ashley Attending physician on admission: Jeramie Ashley Condition: Stable
[2025-08-02 14:30] VITALS: BP 134/83
[2025-08-03 11:28] VITALS: BP 136/73; PULSE 80; RESP 18; TEMP 36.9; O2SAT 100
--- NOTE | 2025-08-13 11:46 | WPDHPUPDATE1 ---
History and Physical Update Update Date/Time: 08/13/25 11:46 Date of admission 07/31/25. History and Physical has been reviewed, including an updated exam of the patient. There are NO changes in the patient's condition. Risks, benefits, and alternatives have been discussed and questions answered. Patient agrees to proceed with procedure.
== END 2025-08-02 15:33 | disposition home or self-care (01) | DRG 539 ==
LOC: ANHLDR 09:35 → ANHOB2 16:06
PROVIDERS: Admitting Provider Obstetrics & Gynecology; PCP Physician Assistant Medical; Visit Provider Obstetrics & Gynecology
PROC: 10D00Z1 Extraction of Products of Conception, Low, Open Approach (ICD-10-PCS; CPT 59514; principal; 2025-07-31 12:00)
DX: O13.4 Gestational [pregnancy-induced] hypertension without significant proteinuria, complicating childbirth (principal); Z37.0 Single live birth; Z3A.37 37 weeks gestation of pregnancy; O24.82 Other pre-existing diabetes mellitus in childbirth; O69.81X0 Labor and delivery complicated by cord around neck, without compression, not applicable or unspecified; O69.82X0 Labor and delivery complicated by other cord entanglement, without compression, not applicable or unspecified; O34.211 Maternal care for low transverse scar from previous cesarean delivery; Z30.2 Encounter for sterilization
CPT/HCPCS: 36415; 80053; 82948; 85025; 86593; 86850; 86900; 86901; 88302; 88307; A9270; J1756; J1885; J2274; J2405; J2590; J7050; J7120

== ENCOUNTER 2025-08-07 19:16 | Outpatient (CLI) | payer OTHER, SELFPAY ==
[2025-08-07] VITALS (34 sets, daily range): BP systolic 134–141; BP diastolic 69–71; PULSE 88–111; TEMP 38.1–39.5; O2SAT 90–96
--- NOTE | 2025-08-07 19:16 | PC.NURSE ---
Pt arrives to unit with elevated blood pressure at home, incisional pain, and shaking.
--- NOTE | 2025-08-07 19:58 | PC.NURSE ---
Called Dr. Fisher, update on pt, elevated blood pressure at home, incisional pain, shaking, warm behind ear, headache, blood pressure on the unit, and temperature. Orders received to draw CBC, CMP, urinalysis, swab for influenza, COVID, and RSV, and remove dressing to assess incision.
[2025-08-07 20:36] LABS: Hematocrit 27.8 % (37.0-47.0); Hemoglobin 8.6 g/dL (12.0-15.0); Immature Granulocyte Percent A 1.1 % (0-0.5); Lymphocytes Absolute Auto 0.67 K/mm3 (0.9-3.2); Mean Corpuscular HGB Conc 30.9 g/dl (32-36); Mean Corpuscular Hemoglobin 22.4 pg (26-34); Mean Corpuscular Volume 72.4 fl (80-100); Nucleated Red Blood Cells Absolute Auto 0.000 K/mm3 (0.0-0.012); Nucleated Red Blood Cells Perc 0.0 % (0.0-0.2); Platelet Count Result 368 k/mm3 (150-375); Red Blood Count 3.84 M/mm3 (4.2-5.4); White Blood Count 12.8 K/mm3 (4.5-10.0)
[2025-08-07 20:46] LABS: Alanine Aminotransferase 39 U/L (6-35); Albumin Level 3.5 g/dL (3.5-5.1); Alkaline Phosphatase 103 U/L (38-126); Anion Gap 6 mmol/L (4-12); Aspartate Amino Transferase 27 U/L (14-36); Bilirubin,Total 0.4 mg/dL (0.2-1.3); Blood Urea Nitrogen 16 mg/dL (7-17); Calcium 8.6 mg/dL (8.4-10.2); Carbon Dioxide 22 mmol/L (22-30); Chloride 108 mmol/L (98-107); Estimated Glomerular Filt Rate > 60; Glucose 101 mg/dL (65-110); Potassium 3.9 mmol/L (3.4-5.0); Sodium 136 mmol/L (137-145); Total Protein 6.8 g/dL (6.3-8.2); Uric Acid 5.8 mg/dL (2.5-7.5)
[2025-08-07 21:11] LABS: Burr Cells Occasional; Hypochromasia 1+; Ovalocytes 1+; Poikilocytosis 1+; Schistocytes None Seen
[2025-08-07 21:12] LABS: Influenza A QL RT-PCR Negative (Negative); Influenza B QL RT-PCR Negative (Negative); RSV RNA, RT-PCR Negative (Negative); SARS-CoV-2 RNA PCR Negative (Negative)
--- NOTE | 2025-08-07 21:50 | PC.NURSE ---
Alia Mosquera RN and Bia Tripp RN at bedside, removed dressing, no redness, no swelling, no discharge, no odor, no bleeding, incision is now open to air.
--- NOTE | 2025-08-07 21:57 | PC.NURSE ---
Called Dr. Fisher, update on labs, oxygen saturation, incision, and breast assessment. Orders received to take repeat temperature and call back with urinalysis result.
[2025-08-07 22:09] LABS: Add Urine Microscopic? YES; Appearance Urine Clear (Clear); Glucose Urine UA Negative (Negative); Leukocyte Esterase Ur 1+ LEU/UL (Negative); Nitrate Urine Negative (Negative); Non Pathogenic Casts 0-2; Specific Grav Ur 1.023 (1.001-1.035)
--- NOTE | 2025-08-07 22:20 | PC.NURSE ---
Addendum entered by Gabrielle Mosquera RN 08/08/25 00:29: Orders received to discharge pt with prescription for cephalexin 500 mg every six hours for seven days and standard precautions for when to return to the unit and the ED for worsening symptoms. Original Note: Called Dr. Fisher, update on urinalysis and temperature. Orders received to administer cephalexin 500 mg, prescription for cephalexin 500 mg every six hours for seven days, and standard precautions for when to return to the unit and the ED for worsening symptoms.
[2025-08-07] MEDS: CEPHALEXIN 500 MG CAPSULE PO (23:03)
--- NOTE | 2025-08-07 23:08 | PC.NURSE ---
Pt discharged with prescription for cephalexin 500 mg every six hours for seven days and instructions for standard precautions when to return to the unit and the ED for worsening symptoms. Pt unsatisfied with instructions to return to the ED, RN offered to call hvac services professional provider at pt request to discuss plan of care, pt denies at this time.
== END 2025-08-07 23:08 | disposition home or self-care (01) ==
LOC: ANHOBPP 19:27 → ANHOBOP 19:41 → ANHOBPP 19:41
PROVIDERS: Obstetrics & Gynecology; PCP Physician Assistant Medical; Visit Provider Obstetrics & Gynecology
DX: O13.5 Gestational [pregnancy-induced] hypertension without significant proteinuria, complicating the puerperium (principal); G89.18 Other acute postprocedural pain; O90.89 Other complications of the puerperium, not elsewhere classified; R25.1 Tremor, unspecified
CPT/HCPCS: 36415; 80053; 81001; 84550; 85025; 87086; 87637; A9270